=== PATIENT | female | born 1945 | race Caucasian/White ===

== ENCOUNTER 2020-03-01 06:31 | Day surgery (SDC) | payer MEDICARE, OTHER, SELFPAY ==
--- NOTE | 2020-02-29 11:56 | HO.ANESPROP2 ---
Documented by User: Sonam Sparks 02/29/20 11:59 HPI - Anesthesia Eval Consult details Narrative: 74yo F for EGD with balloon diliation PMFSH Past Medical History Medical History Depression with anxiety GERD (gastroesophageal reflux disease) Hiatal hernia Hypothyroidism Mild asthma Mild cognitive impairment GILDA (obstructive sleep apnea) Pure hypercholesterolemia Family History Family History Mother Diabetes Hypertension Stroke Father Lung cancer Surgical History Surgical History History of benign ovarian tumor Social History Social History Smoking Status: Never smoker Second Hand Smoke Exposure: No Use of substances other than those prescribed or required for medical reasons: No Advance Directives: Yes Advance Directives Information Provided: Yes Advance Directives on File: No Advance Directives Date on File: 03/01/20 Recently lost weight without trying: No Meds Allergies Allergy/AdvReac Type Severity Reaction Status Date / Time influenza virus vaccine, Allergy Severe SEVERE FLU Verified 02/23/20 10:19 specific SYMPTOMS [Influenza Virus Vacc,Specific] amoxicillin [Amoxicillin] Allergy Unknown UNKNOWN Verified 02/23/20 10:19 codeine [CODEINE] Allergy Unknown NAUSEA & Verified 02/23/20 10:19 VOMITING Penicillins Allergy Unknown UNKNOWN Verified 02/23/20 10:19 Home Medications Medication Instructions Recorded Confirmed Type albuterol sulfate 90 mcg/actuation 2 puff PO Q6H PRN 02/23/20 02/23/20 History aerosol inhaler fluticasone propionate 44 1 puff INHALATION BID 02/23/20 02/23/20 History mcg/actuation HFA aerosol inhaler levothyroxine 50 mcg tablet 50 mcg PO QAM 02/23/20 02/23/20 History sertraline 100 mg tablet 100 mg PO DAILY 02/23/20 02/23/20 History terbutaline 5 mg tablet 5 mg PO TID 02/23/20 02/23/20 History Exam Exam Date and Time: February 29, 2020 1156 Pertinent Lab Results Pertinent Lab Results: Laboratory Tests 01/20/20 01/20/20 13:43 14:15 WBC 10.6 Hgb 14.5 Hct 44.9 Plt Count 275 Sodium 137 Potassium 4.3 Chloride 102 BUN 27 H Creatinine 1.10 Assessment and Plan Assessment Anesthesia Assessment: Chart Reviewed Documented by User: Lui Mejia 03/01/20 07:24 PMFSH Past Medical History Medical History Depression with anxiety GERD (gastroesophageal reflux disease) Hiatal hernia Hypothyroidism Mild asthma Mild cognitive impairment GILDA (obstructive sleep apnea) Pure hypercholesterolemia Family History Family History Mother Diabetes Hypertension Stroke Father Lung cancer Surgical History Surgical History History of benign ovarian tumor Social History Social History Smoking Status: Never smoker Second Hand Smoke Exposure: No Use of substances other than those prescribed or required for medical reasons: No Advance Directives: Yes Advance Directives Information Provided: Yes Advance Directives on File: No Advance Directives Date on File: 03/01/20 Recently lost weight without trying: No Meds Allergies Allergy/AdvReac Type Severity Reaction Status Date / Time influenza virus vaccine, Allergy Severe SEVERE FLU Verified 02/23/20 10:19 specific SYMPTOMS [Influenza Virus Vacc,Specific] amoxicillin [Amoxicillin] Allergy Unknown UNKNOWN Verified 02/23/20 10:19 codeine [CODEINE] Allergy Unknown NAUSEA & Verified 02/23/20 10:19 VOMITING Penicillins Allergy Unknown UNKNOWN Verified 02/23/20 10:19 Home Medications Medication Instructions Recorded Confirmed Type albuterol sulfate 90 mcg/actuation 2 puff PO Q6H PRN 02/23/20 02/23/20 History aerosol inhaler fluticasone propionate 44 1 puff INHALATION BID 02/23/20 02/23/20 History mcg/actuation HFA aerosol inhaler levothyroxine 50 mcg tablet 50 mcg PO QAM 02/23/20 02/23/20 History sertraline 100 mg tablet 100 mg PO DAILY 02/23/20 02/23/20 History terbutaline 5 mg tablet 5 mg PO TID 02/23/20 02/23/20 History Exam Airway Mallampati Class: III TM Dist: >3cm Neck ROM: Full Loose/Missing/Broken Teeth: No Heart: [id number] Lungs: +b/s b/l Assessment and Plan Assessment Anesthesia Assessment: Anesthesia Plan Discussed, PAT Visit and Chart Reviewed Final Anesthetic Review NPO: Yes ASA Class: III Final Preanesthetic Review: No Changes in Pt Med Stat, Meds/Allgs Chart Reviewed, Consent Obtained/Reviewed and Anes Risks/Benef Reviewed Patient Risk: Intermediate Procedure Risk: Low Assessment/Block/Sedation in SS: Assess/Block/Sedation-SS Anesthetic Plan Anesthetic Plan: MAC: Disposition: Standard PACU
[2020-03-01 06:40] VITALS: BMI 41.1
[2020-03-01 06:52] VITALS: BP 139/70; PULSE 79; RESP 18; TEMP 36.8; O2SAT 96
[2020-03-01] MEDS: Lactated Ringers 1,000 ML 100 ML IVCONT (07:07)
--- NOTE | 2020-03-01 07:22 | MHC.SHP ---
Pre-Procedural Eval Section A The patient is an INPATIENT: No The History & Physical has been completed within 30 days and I have reviewed it.: No Section B Chief Complaint: Dysphagia Details of Present Illness: Pt was eating fried chicken and it got stuck a few weeks ago. Food passed down in 10 min, she was having pain in her back. Daughter made her lie down on her left side. Massive amounts of reflux issues and nausea Daughter has noted increased belching. Relevant Family History (Specify if Yes): No Relevant Social History: None Present Medications: see Short Stay Collaborative assessment Medical History: Significant History (Diverticulitis. Hypothyroidism. Intermittent asthma. Depression/anxiety. ) History of Previous Operations: No relevant previous surgery Allergies: Allergies Allergy/AdvReac Type Severity Reaction Status Date / Time influenza virus vaccine, Allergy Severe SEVERE FLU Verified 02/23/20 10:19 specific SYMPTOMS [Influenza Virus Vacc,Specific] amoxicillin [Amoxicillin] Allergy Unknown UNKNOWN Verified 02/23/20 10:19 codeine [CODEINE] Allergy Unknown NAUSEA & Verified 02/23/20 10:19 VOMITING Penicillins Allergy Unknown UNKNOWN Verified 02/23/20 10:19 Review of Systems Sugical H&P ROS: Negative: Constitution and Cardiovascular and Yes, Specify: Respiratory (asthma), Psychiatric (cognitive impairment) and Gastrointestinal (Dysphagia) Exam Surgical H&P Exam: Normal: Heart, Normal: Lungs, Normal: Extremities and Normal: Abdomen Plan Diagnosis/Plan: Unchanged Patient has been examined and remains a candidate for the planned procedure
--- NOTE | 2020-03-01 07:24 | P.BOP_ITS ---
Brief Operative Note Date of procedure: 03/01/20 Pre-op diagnosis: Dysphagia, abnormal barium swallow Post-op diagnosis: other (Dysphagia, hiatal hernia, ersoive esophagitis) Procedure: FLEXIBLE TRANSORAL UPPER GASTROINTESTINAL ENDOSCOPY WITH BIOPSIES AND ESOPHAGEAL BALLOON DILATION Consent: Indications for the procedure and potential complications of bleeding, perforation, reaction to medications and missed diagnosis were discussed with the patient and informed consent was obtained. Instrument: Olympus GIF H 190 mid size upper endoscope Monitoring: Vital signs and clinical assessment, continuous EKG monitoring, Pulse oximetry, Carbon Dioxide monitoring and blood pressure monitoring were done throughout the procedure. Procedure: The patient was placed in the left lateral decubitis position and pre-procedure medications were administered and a bite block was placed. The endoscope was inserted into the mouth and advanced under direct vision to the third part of duodenum. A careful inspection was made as the upper endoscope was withdrawn including a retroflexed examination of the proximal stomach; Findings and interventions are described below. Findings: Larynx: Normal Esophagus: Tortuous esophagus with increased tertiary contractions - biopsies were obtained from proximal esophagus to check for EOE. GE junction at 35 cms, hiatal hernia 35 to 38 cms. Focal esophagitis with erosions at GE junction - biopsies were obtained. Balloon dilation was performed with an 18 and 19 mm CRE balloon x 60 seconds at each level. Stomach: Mild gastric erythema. Biopsies were obtained. Grade 2 flap valve on retroflexed examination of the cardia. Duodenum: Normal bulb and descending duodenum Intervention: Biopsies and esophageal balloon dilation as noted above Impression and Post Procedure Diagnosis: Endoscopy Findings: ESOPHAGUS: Tortuous esophagus with increased tertiary contractions - biopsies were obtained from proximal esophagus to check for EOE. GE junction at 35 cms, hiatal hernia 35 to 38 cms. Focal esophagitis with erosions at GE junction - biopsies were obtained. Balloon dilation was performed with an 18 and 19 mm CRE balloon x 60 seconds at each level. Plan: Await pathology results Patient has an appointment on 04/26/20 in the [facility] with Dipak Tracey M.D. Above findings were reviewed with the patient and handouts on GERD and dysphagia were given in the discharge area Surgeon: Dipak Tracey MD Anesthesia: MAC (Dr Buchanan) Engineering Department Chair: Edilberto Major Estimated blood loss (mL): 0 Pathology: other (A. proximal esophagus, B. Distal esophagus) Condition: stable Disposition: PACU
[2020-03-01] MEDS: Albuterol Sulfate (0.083%) 2.5 MG/3 ML VIAL.NEB INHALE (07:26)
[2020-03-01 08:18] VITALS: BP 113/62; PULSE 84; RESP 16; TEMP 37.4; O2SAT 95
[2020-03-01 08:37] VITALS: BP 126/66; PULSE 72; RESP 15; TEMP 37.6; O2SAT 94
--- NOTE | 2020-03-01 09:19 | HO.POSTANES ---
Post Anesthesia Evaluation Post Anesthesia Evaluation Vital Signs: Vital Signs Temp Pulse Resp BP Pulse Ox 03/01/20 08:37 99.7 F 72 15 126/66 94 03/01/20 08:18 99.3 F 84 16 113/62 95 03/01/20 06:52 98.2 F 79 18 139/70 96 Anesthesia: Monitored Mental Status: Awake Pain Control: Satisfactory Nausea/Vomiting: None Hydration: Adequate Anesthesia-Related Issues: No Anes. Related Issues
== END 2020-03-01 09:23 | disposition home or self-care (01) ==
PROVIDERS: PCP Internal Medicine; Visit Provider Internal Medicine Gastroenterology
PROC: (CPT 43249; principal; 2020-03-01 07:30)
DX: K22.8 Other specified diseases of esophagus (principal); K21.00 Gastro-esophageal reflux disease with esophagitis, without bleeding; K44.9 Diaphragmatic hernia without obstruction or gangrene; K22.10 Ulcer of esophagus without bleeding; F32.9 Major depressive disorder, single episode, unspecified; J45.909 Unspecified asthma, uncomplicated; G47.33 Obstructive sleep apnea (adult) (pediatric); G31.84 Mild cognitive impairment of uncertain or unknown etiology; E78.00 Pure hypercholesterolemia, unspecified; E03.9 Hypothyroidism, unspecified; Z79.51 Long term (current) use of inhaled steroids; Z79.899 Other long term (current) drug therapy; Z88.0 Allergy status to penicillin; Z88.1 Allergy status to other antibiotic agents; Z88.8 Allergy status to other drugs, medicaments and biological substances
CPT/HCPCS: 43249; 43239; 88305; 94640; C1726; J2405

== ENCOUNTER → 2020-03-08 13:33 | Outpatient (BNVA) | payer MEDICARE, OTHER, SELFPAY | PROVIDERS: PCP Internal Medicine; Visit Provider Urology | DX: N32.81 Overactive bladder (principal) | CPT/HCPCS: 99212 ==

== ENCOUNTER 2020-04-02 14:04 | Emergency (ER) | payer MEDICARE, OTHER, SELFPAY ==
[2020-04-02 14:11] VITALS: BP 126/80; BP 174/80; PULSE 74; PULSE 82; RESP 16; O2SAT 97; BMI 39.6
--- NOTE | 2020-04-02 14:13 | CT_ITS ---
EXAMINATION: CT HEAD, CT CERVICAL SPINE AND CT FACIAL BONES WITHOUT CONTRAST. CLINICAL INFORMATION: Fall, jaw pain. COMPARISON: None TECHNIQUE: 5 mm thin axial and reformatted 2 mm thin and coronal and sagittal images of brain were obtained. 3 minutes and axial and reformatted 1.5 mm thin sagittal and coronal images of facial bones were obtained. Subsequently 3 mm thin axial and reformatted 2 mm thin sagittal coronal images of cervical spine were obtained. DLP 1864. FINDINGS: Brain: There is no acute intra-axial, extra-axial bleed, masses, collection or midline shift. There is no acute infarction in evolution. The seymour to white matter differentiation is maintained. The lateral ventricles are symmetrical but enlarged. There is mild prominence of cortical sulci. Bone windows reveal no calvarial abnormality. There is normal aeration of bilateral paranasal sinuses and mastoid air cells. The scalp soft tissues are unremarkable. Facial bones: There is normal aeration of bilateral paranasal sinuses with mucoperiosteal thickening bilateral maxillary and ethmoid sinuses. There are bilateral retention cysts or polyps in bilateral maxillary sinuses. The lamina papyracea, cribriform plate and bony sinus protcor are intact. No acute fracture seen. Bilateral ostiomeatal complex and frontoethmoidal recesses are widely patent. Cervical spine: There is mild straightening of cervical lordosis. The vertebral heights are normal. There is grade 1 anterolisthesis C4 over C5. Rest of the vertebral alignment is normal. There is loss of C4-C5, C5-C6, C6-C7 and C7-T1 disc heights with mild ventral and posterior spondylosis. No lytic or sclerotic process seen. There is no visible acute fracture, dislocation or subluxation. The craniovertebral junction and the C1-C2 alignment is normal. There is moderate C4-C5 facet joint arthropathy. There is bilateral apical pleural thickening. CT/CT facial bones wo con IMPRESSION: No acute intracranial process seen. No maxillofacial, mandibular or nasal bone fractures seen. Mild mucoperiosteal thickening and retention cysts or polyps in bilateral maxillary sinuses and mucosal thickening bilateral ethmoid sinuses. No visible fracture or dislocation cervical spine. Grade 1 degenerative anterolisthesis C4 over C5. There are degenerative disc changes from C4-C5 through C7-T1 disc levels with mild ventral spondylosis.
--- NOTE | 2020-04-02 14:14 | CT_ITS ---
EXAMINATION: CT HEAD, CT CERVICAL SPINE AND CT FACIAL BONES WITHOUT CONTRAST. CLINICAL INFORMATION: Fall, jaw pain. COMPARISON: None TECHNIQUE: 5 mm thin axial and reformatted 2 mm thin and coronal and sagittal images of brain were obtained. 3 minutes and axial and reformatted 1.5 mm thin sagittal and coronal images of facial bones were obtained. Subsequently 3 mm thin axial and reformatted 2 mm thin sagittal coronal images of cervical spine were obtained. DLP 1864. FINDINGS: Brain: There is no acute intra-axial, extra-axial bleed, masses, collection or midline shift. There is no acute infarction in evolution. The seymour to white matter differentiation is maintained. The lateral ventricles are symmetrical but enlarged. There is mild prominence of cortical sulci. Bone windows reveal no calvarial abnormality. There is normal aeration of bilateral paranasal sinuses and mastoid air cells. The scalp soft tissues are unremarkable. Facial bones: There is normal aeration of bilateral paranasal sinuses with mucoperiosteal thickening bilateral maxillary and ethmoid sinuses. There are bilateral retention cysts or polyps in bilateral maxillary sinuses. The lamina papyracea, cribriform plate and bony sinus proctor are intact. No acute fracture seen. Bilateral ostiomeatal complex and frontoethmoidal recesses are widely patent. Cervical spine: There is mild straightening of cervical lordosis. The vertebral heights are normal. There is grade 1 anterolisthesis C4 over C5. Rest of the vertebral alignment is normal. There is loss of C4-C5, C5-C6, C6-C7 and C7-T1 disc heights with mild ventral and posterior spondylosis. No lytic or sclerotic process seen. There is no visible acute fracture, dislocation or subluxation. The craniovertebral junction and the C1-C2 alignment is normal. There is moderate C4-C5 facet joint arthropathy. There is bilateral apical pleural thickening. CT/CT cervical spine wo con IMPRESSION: No acute intracranial process seen. No maxillofacial, mandibular or nasal bone fractures seen. Mild mucoperiosteal thickening and retention cysts or polyps in bilateral maxillary sinuses and mucosal thickening bilateral ethmoid sinuses. No visible fracture or dislocation cervical spine. Grade 1 degenerative anterolisthesis C4 over C5. There are degenerative disc changes from C4-C5 through C7-T1 disc levels with mild ventral spondylosis.
[2020-04-02] MEDS: Lidocaine HCl 1 % MPF 5 ML VIAL SUBCUT ×2 (14:30)
--- NOTE | 2020-04-02 14:38 | PC.NURSE ---
pt daughter updated per pt request. pt daughter expressing that this is more than once pt has come to the er for falls at home. per pt daughter, pt is resistant to rehabilitation and pt daughter feels pt is heading towards needing assisted living with the way shes going with falls . provider aware.
--- NOTE | 2020-04-02 17:08 | XR_ITS ---
EXAMINATION: XR KNEE, RIGHT CLINICAL INFORMATION: Knee injury COMPARISON: None TECHNIQUE: Four views of the right knee. FINDINGS: There is a horizontal nondisplaced fracture through the upper one third of the patella. No joint effusion is seen. No other fractures are detected. Mild degenerative changes are present with narrowing of the medial compartment and some lateral tibial plateau osteophytes. XR/XR knee RT 4V IMPRESSION: 1. Nondisplaced patellar fracture. 2. Mild degenerative changes involving the medial compartment
--- NOTE | 2020-04-02 17:12 | PC.NURSE ---
xray at bedside for knee, lac closed by kenneth krueger
--- NOTE | 2020-04-02 17:50 | ED_ITS ---
HPI - Fall General Chief Complaint: Fall Stated Complaint: TRIP AND FALL Time Seen by Provider: 04/02/20 14:13 History of Present Illness HPI Narrative: Patient tripped and fell in her yd injuring her chin with a laceration, and she does complain of a mild headache and her right knee, she cannot bear weight now, she denies any other injury she denies any preceding symptoms no dizziness no fainting no feeling faint no chest pain no palpitations no nausea no vomiting no fever no chills, denies other injury Related Data Home Medications Medication Instructions Recorded Confirmed albuterol sulfate 90 mcg/actuation 2 puff PO Q6H PRN 02/23/20 03/08/20 aerosol inhaler levothyroxine 50 mcg tablet 50 mcg PO QAM 02/23/20 03/08/20 sertraline 100 mg tablet 100 mg PO DAILY 02/23/20 03/08/20 terbutaline 5 mg tablet 5 mg PO TID 02/23/20 03/08/20 Previous Rx's Medication Instructions Recorded sertraline 25 mg tablet 25 mg PO DAILY #30 tab 02/20/20 mirabegron 25 mg tablet,extended 25 mg PO DAILY 30 Days #30 tab 02/22/20 release 24 hr omeprazole 20 mg capsule,delayed 20 mg PO DAILY 30 Days #30 cap 03/01/20 release fluticasone propionate 44 1 puff INHALATION BID #31.8 cap 03/20/20 mcg/actuation HFA aerosol inhaler Allergies Allergy/AdvReac Type Severity Reaction Status Date / Time influenza virus vaccine, Allergy Severe SEVERE FLU Verified 02/23/20 10:19 specific SYMPTOMS [Influenza Virus Vacc,Specific] amoxicillin [Amoxicillin] Allergy Unknown UNKNOWN Verified 03/08/20 13:41 codeine [CODEINE] Allergy Unknown NAUSEA & Verified 03/08/20 13:41 VOMITING Penicillins Allergy Unknown UNKNOWN Verified 03/08/20 13:41 Review of Systems Review of Systems: Positive positive for headache, chin laceration, right knee pain Negative for fever chills dizziness weakness no preceding symptoms no feeling faint no fainting no passing-out no loss of consciousness no vision changes no numbness or weakness no chest pain no shortness of breath no palpitations, no abdominal pain no nausea no vomiting, no numbness no weakness [facility] Past Medical History Attestation statement: The following information was validated with the patient. [facility] Narrative: Patient has had many months of pain in her legs which makes ambulation difficult and has had several falls Source: nursing notes reviewed Medical History Depression with anxiety Dysphagia GERD (gastroesophageal reflux disease) Hiatal hernia Hypothyroidism Mild asthma Mild cognitive impairment GILDA (obstructive sleep apnea) Pure hypercholesterolemia Surgical History History of benign ovarian tumor Family History Family History Mother Diabetes Hypertension Stroke Father Lung cancer Social History Social History Alcohol intake: never Smoking Status: Never smoker Second Hand Smoke Exposure: No Use of substances other than those prescribed or required for medical reasons: No Advance Directives: Yes Advance Directives on File: Yes Advance Directives Date on File: 03/01/20 Physical Exam Vital Signs: Vital Signs: Last Vital Signs Temp 97.9 F 04/02/20 19:05 Pulse 90 04/02/20 19:05 Resp 18 04/02/20 19:05 BP 150/77 H 04/02/20 19:05 Pulse Ox 97 04/02/20 19:05 Body Mass Index 39.6 Patient is comfortable of hearing, relaxed and cooperative, a and O x3, no acute distress There is a 2.5 cm laceration subcutaneous in the chin, there is some tenderness around the area but the mandible has full range of motion, there is no wound or hematoma or defect on the scalp, there is no hemotympanum, no raccoon eyes, no Vincent sign The neck had mild tenderness, no bony tenderness The chest is clear to auscultation bilaterally with no chest wall tenderness The abdomen is soft nontender The extremities the right knee is scraped with superficial abrasions there is tenderness over the patella the patient cannot straight leg raise and cannot bend the knee without lots of discomfort, there was no significant swelling or effusion The hip was non tender, and the ankle had full range of motion without swelling or deformity Upper extremities had full range of motion with no swelling or deformity as did the left leg Neuro no focal deficit Course Course Course Narrative: Patient remains comfortable throughout ER visit but is unable to lift right leg or ambulate normally Procedure note the 2.5 cm chin laceration is cleansed with normal saline Anesthesia was 8 cc of 1% lidocaine No foreign body was seen 250 Vicryl sutures were used internally 850 nylon sutures were used to complete the closure Bleeding was controlled and patient tolerated procedure well Discussion with Dr. Newell about the x-ray finding which revealed a broken patella with horizontal fracture of upper 3rd, he advised no need for urgent surgery and patient can follow in the office to determine best treatment in 1 week As patient was not ambulatory she was to be held overnight in the ER pending placement in a rehab facility tomorrow 21:00 case signed out to physician assistant petit MDM - Fall Imaging Data CT scan - head: Radiologist's impression: (s): CT head/brain wo con Accession Number(s): [id number] cc: KWADWO VOGEL~ EXAMINATION: CT HEAD, CT CERVICAL SPINE AND CT FACIAL BONES WITHOUT CONTRAST. CLINICAL INFORMATION: Fall, jaw pain. COMPARISON: None TECHNIQUE: 5 mm thin axial and reformatted 2 mm thin and coronal and sagittal images of brain were obtained. 3 minutes and axial and reformatted 1.5 mm thin sagittal and coronal images of facial bones were obtained. Subsequently 3 mm thin axial and reformatted 2 mm thin sagittal coronal images of cervical spine were obtained. DLP 1864. FINDINGS: Brain: There is no acute intra-axial, extra-axial bleed, masses, collection or midline shift. There is no acute infarction in evolution. The seymour to white matter differentiation is maintained. The lateral ventricles are symmetrical but enlarged. There is mild prominence of cortical sulci. Bone windows reveal no calvarial abnormality. There is normal aeration of bilateral paranasal sinuses and mastoid air cells. The scalp soft tissues are unremarkable. Facial bones: There is normal aeration of bilateral paranasal sinuses with mucoperiosteal thickening bilateral maxillary and ethmoid sinuses. There are bilateral retention cysts or polyps in bilateral maxillary sinuses. The lamina papyracea, cribriform plate and bony sinus proctor are intact. No acute fracture seen. Bilateral ostiomeatal complex and frontoethmoidal recesses are widely patent. Cervical spine: There is mild straightening of cervical lordosis. The vertebral heights are normal. There is grade 1 anterolisthesis C4 over C5. Rest of the vertebral alignment is normal. There is loss of C4-C5, C5-C6, C6-C7 and C7-T1 disc heights with mild ventral and posterior spondylosis. No lytic or sclerotic process seen. There is no visible acute fracture, dislocation or subluxation. The craniovertebral junction and the C1-C2 alignment is normal. There is moderate C4-C5 facet joint arthropathy. There is bilateral apical pleural thickening. CT/CT head/brain wo con IMPRESSION: No acute intracranial process seen. No maxillofacial, mandibular or nasal bone fractures seen. Mild mucoperiosteal thickening and retention cysts or polyps in bilateral maxillary sinuses and mucosal thickening bilateral ethmoid sinuses. No visible fracture or dislocation cervical spine. Grade 1 degenerative anterolisthesis C4 over C5. There are degenerative disc changes from C4-C5 through C7-T1 disc levels with mild ventral spondylosis. Discharge Plan Discharge Prescriptions: No Action sertraline 25 mg tablet 25 mg PO DAILY Qty: 30 RF: 6 Myrbetriq 25 mg tablet extended release 24 hr 25 mg PO DAILY 30 Days Qty: 30 RF: 6 omeprazole 20 mg capsule,delayed release(DR/EC) 20 mg PO DAILY 30 Days Qty: 30 RF: 3 fluticasone propionate [Flovent HFA] 44 mcg/actuation HFA aerosol inhaler 1 puff inhalation BID Qty: 31.8 RF: 1 sertraline 100 mg tablet 100 mg PO DAILY RF: 0 levothyroxine 50 mcg tablet 50 mcg PO QAM RF: 0 albuterol sulfate 90 mcg/actuation HFA aerosol inhaler 2 puff PO Q6H PRNRF: 0 terbutaline 5 mg tablet 5 mg PO TID RF: 0
[2020-04-02 17:58] VITALS: BP 145/78; PULSE 87; RESP 22; TEMP 36.8; O2SAT 95
[2020-04-02 19:05] VITALS: BP 150/77; PULSE 90; RESP 18; TEMP 36.6; O2SAT 97
--- NOTE | 2020-04-02 19:15 | PC.NURSE ---
pt denies pain yet has a headache when she extends her head back into the pillow. pt is now eating a sandwhich, head ct and c spine completed. pt denies pain to knee or chin at this time. pt is aox3 with no distress noted.
[2020-04-02] MEDS: Ibuprofen 400 MG TABLET PO (21:37)
[2020-04-02 22:00] VITALS: BP 133/79; PULSE 91; RESP 16
[2020-04-02 22:31] VITALS: BP 136/77; PULSE 88; RESP 18; TEMP 37.3; O2SAT 94
[2020-04-03] VITALS (8 sets, daily range): BP systolic 110–153; BP diastolic 57–72; PULSE 79–88; RESP 16–20; TEMP 36.6–36.8; O2SAT 92–98
--- NOTE | 2020-04-03 02:18 | PC.NURSE ---
pt voided urine in bedpan, pt repositioned call ruiz at bedside. no s/s of resp distress. palp pulses to extremities.
--- NOTE | 2020-04-03 07:10 | PC.NURSE ---
pt is a/o x 3 no sob/yamilex noted skin pink warm dry, r knee brace in place. +cms to r leg.
--- NOTE | 2020-04-03 08:05 | PC.NURSE ---
pt ate 50% of breakfast.
--- NOTE | 2020-04-03 08:41 | MHC.CM.ED ---
Received case management consult from Praneeth VERMA. Patient came to ER after a fall. Physical therapy eval. Short term rehab is recommended but patient is refusing. Attempted to reach out to daughterJessy via telephone at [phone]. Left voicemail requesting return telephone call. Continue to monitor for d/c needs.
[2020-04-03 09:59] LABS: Glucose Urine UA NEG (NEG); Leukocyte Esterase Urine NEG (NEG); Nitrite Urine NEG (NEG); PH 5.5 (5.0-8.0); Specific Gravity - Urine >= 1.030 (1.005-1.025); Urine Blood 2+ (NEG); Urine Ketones NEG (NEG); Urine Protein NEG (NEG-TRACE)
[2020-04-03 10:00] LABS: Appearance Urine CLOUDY; Color Urine YELLOW
[2020-04-03 10:07] LABS: Bacteria Urine 2+ /LPF; Squamous Epithelial Cell Urine 2+ /LPF; WBC Urine 0-2 /HPF (0-4)
[2020-04-03 10:08] LABS: Urine Talc Crystals 3+ /LPF
[2020-04-03 10:12] LABS: COVID-19 Test Negative (Negative)
[2020-04-03] MEDS: HYDROcodone Bit/Acetam 5/325 TABLET 1 TAB PO (11:18)
[2020-04-03] MEDS: Levothyroxine Sodium 50 MCG TABLET PO (11:18)
[2020-04-03] MEDS: Sertraline HCL 25 MG TABLET 75 MG PO (11:18)
[2020-04-03] MEDS: Albuterol Sulfate 90 MCG 8 GM INHALER 2 PUFF INHALE (11:19)
[2020-04-03] MEDS: Mirabegron 25 MG TAB.ER.24H PO (12:46)
--- NOTE | 2020-04-03 12:54 | MHC.CM.ED ---
Received return telephone call from daughter, Jessy. Patient lives on the 2nd floor. Jessy lives on the first. 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 She is unable to assist patient 24 hours a day especially if she is unable to bear wait. Met with patient. Explained about information. Patient is agreeable to short term rehab at [facility]. Per Ariane at [facility], patient can leave at 2pm. [facility] booked. Med nec with chart. Patient, Jessy, Di VERMA and Shauna GONZALEZ aware. Continue to monitor for d/c needs.
--- NOTE | 2020-04-03 13:55 | PC.NURSE ---
Pt vomited, unwitnessed by this rn. stomach contents. states she didn't aspirate, was sitting upright. cleansed and given sips of water. provider aware.
--- NOTE | 2020-04-03 14:31 | PC.NURSE ---
nurse to nurse given to evan (rn) at [facility]. pt aware of plano f care for d/c to rehab via stretcher.
== END 2020-04-03 14:33 | disposition skilled nursing facility (03) ==
PROVIDERS: Physician Assistant; Emergency Provider Emergency Medicine; PCP Internal Medicine
DX: S01.81XA Laceration without foreign body of other part of head, initial encounter (principal); S80.211A Abrasion, right knee, initial encounter; W01.0XXA Fall on same level from slipping, tripping and stumbling without subsequent striking against object, initial encounter; R68.84 Jaw pain; G44.309 Post-traumatic headache, unspecified, not intractable; M54.2 Cervicalgia; Y93.01 Activity, walking, marching and hiking; Y92.9 Unspecified place or not applicable; Y99.9 Unspecified external cause status; M25.561 Pain in right knee; Z79.899 Other long term (current) drug therapy; Z23 Encounter for immunization
CPT/HCPCS: 12011; 70450; 70486; 72125; 73564; 81001; 87635; 90471; 90715; 97162; 99284; 99285

== ENCOUNTER 2020-04-13 12:23 | Outpatient (REF) | payer MEDICARE, OTHER, SELFPAY ==
--- NOTE | 2020-04-13 12:24 | XR_ITS ---
EXAMINATION: XR KNEE, RIGHT CLINICAL INFORMATION: Patellar fracture. Follow-up. COMPARISON: Radiographs right knee 04/02/2020 TECHNIQUE: AP and lateral views of the right knee. FINDINGS: There is a nondisplaced transverse patellar fracture again seen. No interval displacement. No interval acute fracture or dislocation. Again, there are degenerative changes medial knee joint compartment with joint narrowing. No erosive change. XR/XR knee RT 2V IMPRESSION: Nondisplaced transverse fracture right patella unchanged in alignment. Fracture line still visible.
== END 2020-04-13 12:24 | disposition home or self-care (01) ==
LOC: HO.HOSX 12:23
PROVIDERS: Visit Provider Orthopaedic Surgery
DX: S82.009A Unspecified fracture of unspecified patella, initial encounter for closed fracture (principal); Z79.899 Other long term (current) drug therapy; Z79.891 Long term (current) use of opiate analgesic
CPT/HCPCS: 73560; 99202

== ENCOUNTER 2020-05-14 11:45 | Outpatient (REF) | payer MEDICARE, OTHER, SELFPAY ==
--- NOTE | 2020-05-14 12:39 | XR_ITS ---
EXAMINATION: XR KNEE, RIGHT CLINICAL INFORMATION: Fracture COMPARISON: Previous left knee x-rays most recent 04/13/2020 TECHNIQUE: 2 views of the right knee. FINDINGS: There is a transverse fracture of the patella. This appears unchanged from previous exams. No other fracture is seen. There is mild medial femoral tibial joint space narrowing. There is a small joint effusion. XR/XR knee RT 2V IMPRESSION: No change in the transverse fracture of the patella from previous exam.
== END 2020-05-14 11:46 | disposition home or self-care (01) ==
LOC: HO.HOSX 11:45
PROVIDERS: Visit Provider Orthopaedic Surgery
DX: S82.035D Nondisplaced transverse fracture of left patella, subsequent encounter for closed fracture with routine healing (principal)
CPT/HCPCS: 73560; 99212

== ENCOUNTER → 2020-07-02 12:47 | Outpatient (BNVA) | payer MEDICARE, OTHER, SELFPAY | PROVIDERS: PCP Internal Medicine; Visit Provider Internal Medicine Gastroenterology | CPT/HCPCS: Q3014 ==

== ENCOUNTER 2020-08-07 06:30 | Inpatient (IN) | payer MEDICARE, OTHER, SELFPAY ==
--- NOTE | ~2020-08-07 | CT_ITS ---
EXAMINATION: CT GI BLEED, ABDOMEN AND PELVIS WITH IV CONTRAST. CLINICAL INFORMATION: GI bleed, dizziness, abdominal pain and history of diverticulitis. COMPARISON: CT abdomen and pelvis 05/18/2016 TECHNIQUE: 5 mm thin axial and reformatted 2 mm thin sagittal and coronal images of abdomen and pelvis were obtained without contrast. Subsequently 2 mm thin axial postcontrast and delayed images 20 minutes later were obtained through the abdomen and pelvis. DLP [id number]. FINDINGS: The lung bases are clear. The heart size is normal. There is a small hiatal hernia. There are no radiopaque renal, ureteral or urinary bladder calculi. There is no gallbladder calculi either. Postcontrast the liver is homogeneous in density, normal size, shape and position. No focal lesion or intrahepatic ductal dilatation seen. The gallbladder wall is normal. Visualized spleen, bilateral adrenal glands and the kidneys are unremarkable. There is diffuse mural thickening of left transverse and diffuse descending colon with minimal pericolic fat stranding suggestive of colitis the distal descending colon and the rest of the transverse and ascending colon is normal caliber. Underlying long segment neoplasm is hard to exclude. There are a few scattered diverticuli seen in the sigmoid colon. The small bowel loops are normal caliber. The appendix is not visualized. There is no extravasation or pooling of contrast seen in the GI tract, especially within the colon. The abdominal wall appears unremarkable. Visualized abdominal aorta is normal caliber. No abnormal size retroperitoneal or peritoneal lymph nodes seen. There is a small umbilical hernia containing fat. Imaging through the pelvis reveals anteverted uterus. Bone windows reveal vacuum disc phenomenon and loss of disc height at L2-L3, L3-L4, L4-L5 and L5-S1 disc levels. There is mild ventral spondylosis. No lytic process seen. CT/CT gi bleed abd pel wo/w con IMPRESSION: Views left transverse, splenic flexure and proximal descending colon mural thickening and pericolic fat stranding suggestive of colitis. There is no contrast extravasation seen to suspect the site of GI bleed however one is suspected in this region. No proximal bowel obstruction. No free air or abscess seen. Differential diagnosis includes underlying neoplasm, less likely diverticulitis. Diffuse colonic diverticulosis.
[2020-08-07 06:37] VITALS: BP 142/85; PULSE 79; RESP 16; TEMP 36.6; O2SAT 94; BMI 41.5
--- NOTE | 2020-08-07 08:20 | ED.ABDPAIN ---
HPI - Abdominal Pain General Chief Complaint: Abdominal Pain Stated Complaint: BLEEDING FROM RECTUM/ABD PAIN Time Seen by Provider: 08/07/20 08:07 Source: patient and EMS Mode of arrival: EMS Limitations: no limitations History of Present Illness HPI narrative: 74 y/o female with history of asthma, hypothyroidism, hiatial hernia, dysphagia, esophagitis, diverticulitis GERD, GILDA, depression who presents to the ED from home via EMS with lower abdominal pain that started yesterday and acute onset of bloody bowel movements last night. She had 2 pure bloody bowel movements at home along with dizziness last night and this morning. She had 2 more on arrival to the ER. She reports the pain is improved and now gone since getting to the ER. The pain felt like her prior episodes of diverticulitis. She is not on anticoagulation. Last colonoscopy 10 years ago and was unremarkable. Last EGD in February. She denies fever, chills, vomiting, constipation, SOB, chest pain. She admits to nausea but has not vomited. MD elicited complaint: abdominal pain Pertinent past history: diverticulitis Onset (ago): day(s) (1) Pain Consistency: intermittent and now resolved Location: RLQ and LLQ Severity: moderate Quality: cramping and aching Radiation: none Migration to: no migration Exacerbating factors: nothing Relieving factors: nothing Context: history of similar episodes Associated symptoms: nausea Related Data Home Medications Medication Instructions Recorded Confirmed albuterol sulfate 90 mcg/actuation 2 puff PO Q6H PRN 02/23/20 07/02/20 aerosol inhaler terbutaline 5 mg tablet 5 mg PO TID PRN 02/23/20 07/02/20 sertraline 75 mg PO DAILY 04/03/20 07/02/20 Previous Rx's Medication Instructions Recorded mirabegron 25 mg tablet,extended 25 mg PO DAILY 30 Days #30 tab 02/22/20 release 24 hr ibuprofen 600 mg PO Q8H PRN #30 tab 04/03/20 fluticasone propionate 44 1 puff INHALATION BID #31.8 cap 05/14/20 mcg/actuation HFA aerosol inhaler CPAP #1 ea 06/26/20 levothyroxine 50 mcg tablet 50 mcg PO DAILY 90 Days #90 tab 06/26/20 omeprazole 20 mg capsule,delayed 20 mg PO DAILY 90 Days #90 cap 07/02/20 release Allergies Allergy/AdvReac Type Severity Reaction Status Date / Time influenza virus vaccine, Allergy Severe SEVERE FLU Verified 07/02/20 12:47 specific SYMPTOMS [Influenza Virus Vacc,Specific] amoxicillin [Amoxicillin] Allergy Unknown UNKNOWN Verified 07/02/20 12:47 codeine [CODEINE] Allergy Unknown NAUSEA & Verified 07/02/20 12:47 VOMITING Penicillins Allergy Unknown UNKNOWN Verified 07/02/20 12:47 Sulfa (Sulfonamide Allergy Unknown Hives Verified 07/02/20 12:47 Antibiotics) Review of Systems Review of Systems Constitutional: No Fever, No Chills ENT/Mouth: No sore throat, No Rhinorrhea, No Swallowing Difficulty Cardiovascular: No Chest Pain, No SOB, No Orthopnea, No Edema Respiratory: No Cough, No Sputum, No Wheezing, No dyspnea Gastrointestinal: + Nausea, No Vomiting, No Diarrhea, + abdominal Pain, + Hematochezia, No Melena Genitourinary: No Dysuria, No Urinary Frequency, No Hematuria Musculoskeletal: No joint pain, No Myalgias Skin: No Skin Lesions, No rash Neuro: No Weakness, No Numbness, + Dizziness, No Headache Psych: + Anxiety/Panic, No Depression Heme/Lymph: No Bruising, No Lymphadenopathy Endocrine: No Polyuria, No Polydipsia Physical Exam Vital Signs: Vital Signs: Last Vital Signs Temp 97.9 F 08/07/20 06:37 Pulse 75 08/07/20 11:33 Resp 18 08/07/20 11:33 BP 132/55 L 08/07/20 11:33 Pulse Ox 97 08/07/20 11:33 Body Mass Index 41.5 Appearance: Alert. Oriented X3. No acute distress. Eyes: Pupils equal, round and reactive to light. ENT: Pharynx normal. Neck: Normal inspection. Neck supple. CVS: Normal heart rate and rhythm. Pulses normal. Respiratory: No respiratory distress. Breath sounds normal. Abdomen: Obese, Soft and nontender. +BS hyperactive x4. longitudinal well healed abdominal scar consistent with prior surgery Skin: Skin warm and dry. Normal skin color. Normal skin turgor. No rashes. Extremities: No lower extremity edema. Neuro: Oriented X 3. No motor deficit. No sensory deficit. Course Course Course Narrative: 74 y/o female presenting with lower abdominal pain and BRBPR x4, associated with dizziness. Concern for acute diverticulitis with possible acute symptomatic blood loss anemia. Will get blood workup and CT scan w/ GI bleed protocol given she is actively bleeding here, may be able to see an active site. She is hemodynamically stable without tachycardia or hypotension at this time. Will monitor closely. Reevaluation(s) Reevaluation #1: WBC 16K with elevation in LFTs. CT scan showing colitis, no active GI bleed although suspected cause is in the area of colitis. Her H/H is stable. She is symptomatic when she has a bloody BM. She is diffusely weak and c/o SOB with exertion to the commode. Will start IV antibiotics and plan to admit patient for further management. Reevaluation #2: Dr. Ortiz accepted patient for admission. MDM - Abdominal Pain Differential Diagnosis Differential diagnosis: Likely abdominal pain, acute appendicitis, bowel perforation, calculus of kidney, constipation, diverticulitis, gastroenteritis, gastritis, mesenteric ischemia, pancreatitis, peptic ulcer disease and small bowel obstruction Medical Records Attestation: I reviewed the patient's medical records. Lab Data Attestation: I reviewed the patient's lab results. Result diagrams: 08/07/20 08:42 08/07/20 08:43 Labs: Lab Results 08/07/20 08/07/20 08/07/20 Range/Units 08:42 08:43 08:43 WBC 16.6 H (4.8-10.8) X10*3/uL RBC 5.46 (4.20-5.50) X10*6/uL Hgb 14.7 (12.0-16.0) g/dl Hct 46.5 (37-47) % MCV 85.2 (80-98) fL MCH 26.9 L (27.0-33.0) pg MCHC 31.6 (31.0-35.0) g/dl RDW 13.8 (11.0-16.0) % Plt Count 264 (160-400) X10*3/uL MPV 10.7 (9.4-12.3) fL Immature Gran % (Auto) 0.4 (0.0-0.4) % Neut % (Auto) 90.4 H (45-73) % Lymph % (Auto) 4.4 L (20-40) % [place] % (Auto) 4.0 (2-11) % Eos % (Auto) 0.5 (0-4) % Baso % (Auto) 0.3 (0-2) % Lymph # (Auto) 0.7 L (1.2-4.9) X10*3/uL [place] # (Auto) 0.7 (0.1-1.2) X10*3/uL Eos # (Auto) 0.1 (0.0-0.4) X10*3/uL Baso # (Auto) 0.1 (0.0-0.2) X10*3/uL Abs Immat Gran (auto) 0.06 H (0.00-0.03) X10*3/uL Absolute Neuts (auto) 15.0 H (2.0-8.3) X10*3/uL Absolute Nucleated RBC 0.000 (0.0-0.012) X10*3/uL Nucleated RBC % (auto) 0.0 (0.0-0.2) /100WBC Smear Tech's Comments VERIFIED PT 11.6 (10.8-13.0) SEC INR 1.0 (0.9-1.1) APTT 32.9 (24.1-38.0) SEC Sodium 137 (135-145) mmol/L Potassium 4.7 (3.3-5.1) mmol/L Chloride 100 (96-108) mmol/L Carbon Dioxide 23 (22-29) mmol/L Anion Gap 19 (12-20) BUN 19 H (9-16) mg/dL Creatinine 0.82 (0.5-1.4) mg/dL Estim Creat Clear Calc 67.2 Estimated GFR > 60 Random Glucose 173 H (60-115) mg/dL Lactic Acid (0.5-2.0) mmol/L Calcium 9.5 (8.4-10.2) mg/dL Magnesium 2.2 (1.6-2.6) mg/dL Total Bilirubin 0.5 (0.0-1.0) mg/dL Direct Bilirubin < 0.2 (0.0-0.5) mg/dL AST 33 H (5-31) U/L ALT 46 H (0-31) U/L Alkaline Phosphatase 153 H (39-117) U/L Total Protein 7.5 (6.5-8.0) g/dL Albumin 4.4 (3.5-5.0) g/dL Lipase 14 (8-78) U/L Urine Color Urine Appearance Urine pH (5.0-8.0) Ur Specific [place] (1.005-1.025) Urine Protein (NEG-TRACE) MG/DL Urine Glucose (UA) (NEG) MG/DL Urine Ketones (NEG) MG/DL Urine Blood (NEG) Urine Nitrite (NEG) Ur Leukocyte Esterase (NEG) Stool Occult Blood (NEGATIVE) 08/07/20 08/07/20 08/07/20 Range/Units 08:43 08:43 11:19 WBC (4.8-10.8) X10*3/uL RBC (4.20-5.50) X10*6/uL Hgb (12.0-16.0) g/dl Hct (37-47) % MCV (80-98) fL MCH (27.0-33.0) pg MCHC (31.0-35.0) g/dl RDW (11.0-16.0) % Plt Count (160-400) X10*3/uL MPV (9.4-12.3) fL Immature Gran % (Auto) (0.0-0.4) % Neut % (Auto) (45-73) % Lymph % (Auto) (20-40) % [place] % (Auto) (2-11) % Eos % (Auto) (0-4) % Baso % (Auto) (0-2) % Lymph # (Auto) (1.2-4.9) X10*3/uL [place] # (Auto) (0.1-1.2) X10*3/uL Eos # (Auto) (0.0-0.4) X10*3/uL Baso # (Auto) (0.0-0.2) X10*3/uL Abs Immat Gran (auto) (0.00-0.03) X10*3/uL Absolute Neuts (auto) (2.0-8.3) X10*3/uL Absolute Nucleated RBC (0.0-0.012) X10*3/uL Nucleated RBC % (auto) (0.0-0.2) /100WBC Smear Tech's Comments PT (10.8-13.0) SEC INR (0.9-1.1) APTT (24.1-38.0) SEC Sodium (135-145) mmol/L Potassium (3.3-5.1) mmol/L Chloride (96-108) mmol/L Carbon Dioxide (22-29) mmol/L Anion Gap (12-20) BUN (9-16) mg/dL Creatinine (0.5-1.4) mg/dL Estim Creat Clear Calc Estimated GFR Random Glucose (60-115) mg/dL Lactic Acid 1.9 (0.5-2.0) mmol/L Calcium (8.4-10.2) mg/dL Magnesium (1.6-2.6) mg/dL Total Bilirubin (0.0-1.0) mg/dL Direct Bilirubin (0.0-0.5) mg/dL AST (5-31) U/L ALT (0-31) U/L Alkaline Phosphatase (39-117) U/L Total Protein (6.5-8.0) g/dL Albumin (3.5-5.0) g/dL Lipase (8-78) U/L Urine Color YELLOW Urine Appearance CLEAR Urine pH 5.0 (5.0-8.0) Ur Specific [place] <= 1.005 (1.005-1.025) Urine Protein NEG (NEG-TRACE) MG/DL Urine Glucose (UA) NEG (NEG) MG/DL Urine Ketones NEG (NEG) MG/DL Urine Blood 2+ H (NEG) Urine Nitrite NEG (NEG) Ur Leukocyte Esterase NEG (NEG) Stool Occult Blood POSITIVE (NEGATIVE) Discharge Plan Discharge Clinical Impression: Colitis, Acute lower gastrointestinal bleeding Patient Disposition: Admitted As Inpatient Prescriptions: No [facility] Myrbetriq 25 mg tablet extended release 24 hr 25 mg PO DAILY 30 Days Qty: 30 RF: 6 Flovent HFA 44 mcg/actuation HFA aerosol inhaler 1 puff inhalation BID Qty: 31.8 RF: 1 sertraline 25 mg Tablet 75 mg PO DAILY RF: 0 ibuprofen 600 mg tablet 600 mg PO Q8H PRN (Reason: pain) Qty: 30 RF: 0 albuterol sulfate 90 mcg/actuation HFA aerosol inhaler 2 puff PO Q6H PRN (Reason: Wheezing) RF: 0 terbutaline 5 mg tablet 5 mg PO TID PRN (Reason: ASTHMA) RF: 0 (DME) CPAP Machine/Device Device See Rx Instructions .ROUTE .MEDSUPPLY Qty: 1 RF: 0 levothyroxine 50 mcg tablet 50 mcg PO DAILY 90 Days Qty: 90 RF: 1 omeprazole 20 mg capsule,delayed release(DR/EC) 20 mg PO DAILY 90 Days Qty: 90 RF: 3 PMFSH Past Medical History Medical History Depression with anxiety Dysphagia GERD (gastroesophageal reflux disease) Hiatal hernia Hypothyroidism Mild asthma Mild cognitive impairment GILDA (obstructive sleep apnea) Pure hypercholesterolemia Surgical History H/O colonoscopy History of benign ovarian tumor History of esophagogastroduodenoscopy (EGD) Family History Family History Mother Diabetes Hypertension Stroke Father Lung cancer Social History Social History (Updated 07/02/20 @ 12:50 by Chantell Pruett Rox) Household Members: None Housing: Apartment Alcohol intake: current Alcohol intake frequency: does not drink Smoking Status: Never smoker Smoked in Last 30 Days: No Second Hand Smoke Exposure: No Use of substances other than those prescribed or required for medical reasons: No Advance Directives: Yes Advance Directives on File: Yes Advance Directives Date on File: 04/03/20 Current occupational status: retired Current occupation: right handed
[2020-08-07] MEDS: 0.9 % Sodium Chloride 1,000 ML 999 ML IVCONT (08:45)
[2020-08-07 08:58] LABS: Basophils Absolute Auto 0.1 X10*3/uL (0.0-0.2); Basophils Percent Auto 0.3 % (0-2); Eosinophils Absolute Auto 0.1 X10*3/uL (0.0-0.4); Eosinophils Percent Auto 0.5 % (0-4); Hematocrit 46.5 % (37-47); Hemoglobin 14.7 g/dl (12.0-16.0); Imm Gran Abs Auto 0.06 X10*3/uL (0.00-0.03); Imm Gran Pct Auto 0.4 % (0.0-0.4); Lymphocytes Absolute Auto 0.7 X10*3/uL (1.2-4.9); Lymphocytes Percent Auto 4.4 % (20-40); MANUAL DIFF FLAG SCAN; Mean Corpuscular HGB Conc 31.6 g/dl (31.0-35.0); Mean Corpuscular Hemoglobin 26.9 pg (27.0-33.0); Mean Corpuscular Volume 85.2 fL (80-98); Mean Platelet Volume 10.7 fL (9.4-12.3); Monocytes Absolute Auto 0.7 X10*3/uL (0.1-1.2); Neutrophils Percent Auto 90.4 % (45-73); Platelet Count 264 X10*3/uL (160-400); Red Blood Count 5.46 X10*6/uL (4.20-5.50); Red Cell Distribution Width 13.8 % (11.0-16.0); SCAN SMEAR FLAG 1; White Blood Count 16.6 X10*3/uL (4.8-10.8)
[2020-08-07 09:00] LABS: OBS Int Ctl Valid YES; OBS1 POSITIVE (NEGATIVE)
[2020-08-07 09:13] LABS: Prothrombin Time 11.6 SEC (10.8-13.0)
[2020-08-07 09:16] LABS: Lactic Acid 1.9 mmol/L (0.5-2.0); Partial Thromboplastin Time 32.9 SEC (24.1-38.0)
[2020-08-07 09:20] LABS: SLIDE REVIEW VERIFIED
[2020-08-07 09:26] LABS: Alanine Aminotransferase 46 U/L (0-31); Albumin Level 4.4 g/dL (3.5-5.0); Alkaline Phosphatase 153 U/L (39-117); Anion Gap 19 (12-20); Aspartate Amino Transferase 33 U/L (5-31); Bilirubin Direct < 0.2 mg/dL (0.0-0.5); Bilirubin Total 0.5 mg/dL (0.0-1.0); Blood Urea Nitrogen 19 mg/dL (9-16); Calcium 9.5 mg/dL (8.4-10.2); Carbon Dioxide 23 mmol/L (22-29); Chloride 100 mmol/L (96-108); Creatinine Clr Calc Pharmacy 67.2; Estimated Glomerular Filt Rate > 60; Glucose Random 173 mg/dL (60-115); Lipase 14 U/L (8-78); Magnesium 2.2 mg/dL (1.6-2.6); Potassium 4.7 mmol/L (3.3-5.1); Sodium 137 mmol/L (135-145); Total Protein 7.5 g/dL (6.5-8.0)
[2020-08-07 10:30] VITALS: BP 145/72; PULSE 73; RESP 18; O2SAT 96
[2020-08-07 11:30] LABS: Glucose Urine UA NEG (NEG); Leukocyte Esterase Urine NEG (NEG); Nitrite Urine NEG (NEG); Specific Gravity - Urine <= 1.005 (1.005-1.025); Urine Blood 2+ (NEG); Urine Ketones NEG (NEG); Urine Protein NEG (NEG-TRACE)
[2020-08-07 11:31] LABS: Appearance Urine CLEAR; Color Urine YELLOW
[2020-08-07] MEDS: Albuterol Sulfate 90 MCG 8 GM INHALER 2 PUFF INHALE (11:31)
[2020-08-07] MEDS: metroNIDAZOLE/NS 500 MG/100 ML PIGGYBACK 100 MG IV ×3 (11:32→21:31)
[2020-08-07] MEDS: levoFLOXacin/D5W 500 MG/100 ML PIGGYBACK 100 MG IV (11:32)
[2020-08-07 11:33] VITALS: BP 132/55; PULSE 75; RESP 18; O2SAT 97
[2020-08-07 11:48] LABS: Bacteria Urine 1+ /LPF; Squamous Epithelial Cell Urine 2+ /LPF; WBC Urine 0-2 /HPF (0-4)
[2020-08-07 12:10] LABS: COVID-19 Test Negative (Negative); IDNOW Serial# 9DD0AD1C
--- NOTE | 2020-08-07 14:24 | HP_ITS ---
DATE OF SERVICE: 08/07/2020 CHIEF COMPLAINT: Abdominal pain/bright red blood per rectum. HISTORY OF PRESENT ILLNESS: This is a 74-year-old female, patient of Dr. Shania Briggs, with past medical history significant for asthma, history of esophagitis, diverticulitis, GERD, obstructive sleep apnea, depression, and hypothyroidism. The patient presented to the emergency room due to lower abdominal pain of 24 hours duration associated with bloody bowel movement. The patient had 2 episodes of bloody stool last night, mostly blood. The patient also became dizzy with episodes of bleeding. After arrival to the emergency room, the patient had 2 more episodes. The patient's abdominal pain improved in the emergency room. The patient denied any use of NSAIDs. Denies history of alcohol use. The patient denied any outside food. No recent history of travel. The patient had no associated fever, chills, nausea, or vomiting. No chest pain. The patient is not on any anticoagulation. The patient's workup in the emergency room revealed a WBC count of 16,600, hematocrit is stable at 46.5, and platelets are 264. INR of 1. Imaging study including a CT of the abdomen and pelvis showed left transverse splenic flexure and proximal descending colon mural thickening and pericolonic fat stranding suggestive of colitis. There is no proximal bowel obstruction noted. No free air or abscess seen. Differential included underlying neoplasm and less likely diverticulitis. The patient in the ER, received IV fluid, IV Levaquin, and Flagyl, and now being admitted for further evaluation and treatment. PAST MEDICAL HISTORY: Significant for: 1. History of depression and anxiety. 2. History of dysphagia. 3. History of GERD. 4. History of hiatal hernia. 5. History of hypothyroidism. 6. History of mild asthma. 7. History of mild cognitive impairment. 8. History of obstructive sleep apnea. 9. History of hypercholesterolemia. PAST SURGICAL HISTORY: Significant for history of benign ovarian tumor. FAMILY HISTORY: The patient's mother was and had diabetes, hypertension, and stroke. The patient's father of lung cancer. SOCIAL HISTORY: The patient denies history of smoking or alcohol use. The patient walks by herself and at times use a walker. She lives at home with her daughter. REVIEW OF SYSTEMS: CARDIOVASCULAR RADIOLOGIC TECHNOLOGIST: The patient denies any headache, dizziness, or lightheadedness. CVS: No chest pain. No palpitations. RESPIRATORY: No cough. No sputum production or shortness of breath. : No urinary symptoms of urgency and frequency. MUSCULOSKELETAL: No back pain. Rest of all other systems are reviewed and are negative. PHYSICAL EXAMINATION: GENERAL: The patient is resting comfortably and does not appear to be in acute distress. VITAL SIGNS: She is afebrile with a pulse of 75, respiratory rate 18, blood pressure 132/55, and a pulse ox of 97% on room air. HEENT: Pupils are equal, round, and reactive to light and accommodation. NECK: Supple. No increased JVD. LUNGS: Clear to auscultation bilaterally. HEART: Regular rhythm. No murmur, regurgitation, or additional sound appreciated. ABDOMEN: Obese, soft, and nontender. Bowel sounds are audible. Abdominal scar, well healed. SKIN: Warm and dry. No rashes. EXTREMITIES: Without clubbing, cyanosis, or edema. NEURO: Examination is nonfocal. PSYCH: Appropriate affect. ASSESSMENT AND PLAN: This is a 74-year-old female patient with multiple medical issues, presented to [facility] from home due to symptoms of lower abdominal pain and bright red blood per rectum of 24-hour duration. At present, the patient has no abdominal pain, had 2 episodes of bright red blood per rectum in the emergency room. The patient is currently asking for decaffeinated coffee. 1. Lower abdominal pain with bright red blood per rectum. The patient's CT findings are suggestive of colitis, less likely ischemic colitis. There is a concern for underlying malignancy. We will treat the patient with IV antibiotics and IV fluids. We will place her on clear liquid diet. We will follow her hematocrit closely. The patient will need a colonoscopy once she is hemodynamically stable. We will obtain a surgical evaluation. 2. History of hypothyroidism. We will continue her home dose of levothyroxine. 3. History of gastroesophageal reflux disease. We will continue proton pump inhibitors. 4. History of asthma. No acute exacerbation noted. 5. History of obstructive sleep apnea. We will discuss with the patient. If she uses CPAP at home, that will be resumed. 6. Deep vein thrombosis prophylaxis. We will avoid anticoagulation. The patient will be placed on compression boots. MD MINDY Wolfe/WERO / [id number]
[2020-08-07] MEDS: Dextrose 5 % and 0.9 % NaCl 1,000 ML 80 ML IVCONT (14:35)
[2020-08-07 14:59] VITALS: BP 115/72; PULSE 84; RESP 18; O2SAT 95
[2020-08-07 18:53] VITALS: BP 148/81; PULSE 81; RESP 20; TEMP 37.1; O2SAT 95
[2020-08-07 22:00] VITALS: BP 135/73; PULSE 78; RESP 20; TEMP 36.9; O2SAT 96
[2020-08-08] MEDS: Dextrose 5 % and 0.9 % NaCl 1,000 ML 80 ML IVCONT ×2 (02:18→14:08)
[2020-08-08 06:00] VITALS: BP 138/76; PULSE 72; RESP 16; TEMP 36.4; O2SAT 98
[2020-08-08] MEDS: metroNIDAZOLE/NS 500 MG/100 ML PIGGYBACK 100 MG IV ×3 (06:15→21:14)
[2020-08-08 06:43] LABS: Basophils Absolute Auto 0.1 X10*3/uL (0.0-0.2); Basophils Percent Auto 0.5 % (0-2); Eosinophils Absolute Auto 0.2 X10*3/uL (0.0-0.4); Eosinophils Percent Auto 1.7 % (0-4); Hematocrit 41.8 % (37-47); Hemoglobin 13.5 g/dl (12.0-16.0); Imm Gran Abs Auto 0.05 X10*3/uL (0.00-0.03); Imm Gran Pct Auto 0.4 % (0.0-0.4); Lymphocytes Percent Auto 8.2 % (20-40); MANUAL DIFF FLAG NO; Mean Corpuscular HGB Conc 32.3 g/dl (31.0-35.0); Mean Corpuscular Hemoglobin 27.3 pg (27.0-33.0); Mean Corpuscular Volume 84.6 fL (80-98); Mean Platelet Volume 10.6 fL (9.4-12.3); Monocytes Absolute Auto 0.7 X10*3/uL (0.1-1.2); Monocytes Percent Auto 5.9 % (2-11); Neutrophils Absolute Auto 10.2 X10*3/uL (2.0-8.3); Neutrophils Percent Auto 83.3 % (45-73); Platelet Count 256 X10*3/uL (160-400); Red Blood Count 4.94 X10*6/uL (4.20-5.50); Red Cell Distribution Width 13.8 % (11.0-16.0); White Blood Count 12.2 X10*3/uL (4.8-10.8)
[2020-08-08] MEDS: Acetaminophen 325 MG TABLET 650 MG PO (07:24)
[2020-08-08 07:29] LABS: Anion Gap 15 (12-20); Blood Urea Nitrogen 12 mg/dL (9-16); Calcium 8.4 mg/dL (8.4-10.2); Carbon Dioxide 23 mmol/L (22-29); Chloride 104 mmol/L (96-108); Creatinine Clr Calc Pharmacy 68.9; Estimated Glomerular Filt Rate > 60; Glucose Random 147 mg/dL (60-115); Potassium 3.8 mmol/L (3.3-5.1); Sodium 138 mmol/L (135-145)
[2020-08-08] MEDS: levoFLOXacin/D5W 500 MG/100 ML PIGGYBACK 100 MG IV (07:44)
--- NOTE | 2020-08-08 08:32 | MHC.CM.PN ---
pt lives in a two family home in which her daughter lives on the second floor. she reports that she is independent in her care and that her daughter helps her c her needs, such as grocery shopping or transportation out of the house. the daughter will provide transportation at [place]. she says she hasn't driven a car in a while but is considering getting behind the wheel again. she uses a walker c ambulation and has had the vna in the past, however this time she says she would prefer not to have any vna svcs at [place]. [place] plan is home no svcs. cm to cont. to follow.
[2020-08-08 08:45] VITALS: BP 116/70; PULSE 72; RESP 18; TEMP 36.6; O2SAT 94
--- NOTE | 2020-08-08 12:00 | P.PNIM_ITS ---
Subjective Subjective Date of Service: 08/09/20 Interval History: Patient denies abdominal pain but had 1 more episode of bright red blood per rectum overnight, denies fever chills no nausea vomiting is being followed by Dr. Tracey from Gastroenterology. ROS General no headache, no dizziness ,no fever chills. CVS no chest pain, no palpitation. Respiratory no cough, no sob. Gastrointestinal no nausea, no vomiting, no abdominal pain Physical Exam Vital Signs: Vital Signs: Last Vital Signs Temp 97.8 F 08/08/20 08:45 Pulse 72 08/08/20 08:45 Resp 18 08/08/20 08:45 BP 116/70 08/08/20 08:45 Pulse Ox 94 08/08/20 08:45 Body Mass Index 41.5 General resting comfortably in no acute distress. Neck is supple no JVD. CVS regular rate rhythm, Respiratory lungs clear to auscultation, no respiratory distress, no wheeze, no rhonchi. Gastrointestinal abdomen soft, nontender, bowel sounds audible, no guarding , no rigidity. Extremities no clubbing cyanosis or edema. Neuro nonfocal , speech clear. Skin no rash Objective Data Current Medications Generic Name Dose Route Start Last Admin Trade Name Freq PRN Reason Stop Dose Admin Acetaminophen 650 mg 08/07/20 13:39 08/08/20 07:24 Acetaminophen 325 Mg Tablet PO 650 mg Q6H PRN Administration PAIN Albuterol Sulfate 2 puff 08/07/20 11:17 08/07/20 11:31 Albuterol Sulfate 90 Mcg 8 Gm Inhaler INHALE 2 puff Q6H PRN Administration sob Dextrose/Sodium Chloride 1,000 mls @ 80 mls/hr 08/07/20 13:45 08/08/20 02:18 D5ns IVCONT 80 mls/hr .[id number] UYEN Administration Metronidazole 500 mg in 100 mls @ 100 mls/hr 08/07/20 14:00 08/08/20 07:19 Flagyl IV Infused Q8H UYEN Infusion Levofloxacin 500 mg in 100 mls @ 100 mls/hr 08/08/20 07:30 08/08/20 08:48 Levaquin IV Infused Q24H UYEN Infusion Ondansetron HCl 4 mg 08/07/20 13:39 Ondansetron Hcl 4 Mg/2 Ml Vial IVPUSH Q8H PRN Nausea Labs CBC & Chem 7: 08/09/20 06:14 08/08/20 06:08 Microbiology Microbiology Results: Microbiology 08/07/20 09:33 Blood - Venous Blood Culture - Preliminary No growth after 24 hours. 08/07/20 08:43 Blood - Venous Blood Culture - Preliminary No growth after 24 hours. Assessment and Plan (1) Colitis: Status: Acute (2) Acute lower gastrointestinal bleeding: Status: Acute (3) Hypothyroidism: Status: Acute (4) Depression with anxiety: Status: Acute (5) GILAD (obstructive sleep apnea): Status: Acute (6) Pure hypercholesterolemia: Status: Acute Assessment and Plan: 74-year-old female patient with multiple medical issues, presented to [facility] from home due to symptoms of lower abdominal pain and brightred blood per rectum of 24-hour duration. At present, the patient has no abdominal pain, had 2 episodes of bright red blood per rectum in the emergency room. The patient is currently asking for decaffeinated coffee. 1. Acute Colitis Lower abdominal pain resolved,but had 1 more episode of bright red blood per rectum since admit, CT abdomen suggestive of colitis, less likely ischemic colitis. Patient is status post colonoscopy by Dr. Avina in 2019, and underwent excisional polypectomy x1 pathology revealed tubular adenoma with no evidence of high-grade dysplasia or invasive carcinoma, will refer her back to gastroenterology for follow-up, at present hematocrit is stable, continue IV fluid and clear liquid diet, on IV Levaquin and Flagyl day 2 Follow CBC, if no further bleed will advance diet, continue supportive care. 2. History of hypothyroidism. Continue levothyroxine. 3. History of gastroesophageal reflux disease/esophagitis. Continue PPI. 4. History of asthma. No acute exacerbation noted. 5. History of obstructive sleep apnea. No somnolence, no shortness 6. Elevated LFTs, no abdominal pain Deep vein thrombosis prophylaxis. will avoid anticoagulation continue compression boots.
[2020-08-08 14:00] VITALS: RESP 16
[2020-08-08 15:29] VITALS: BP 131/74; PULSE 84; RESP 16; TEMP 36.6; O2SAT 95
[2020-08-08 19:19] VITALS: BP 145/71; PULSE 78; RESP 18; TEMP 36.6; O2SAT 97
[2020-08-08 23:13] VITALS: BP 136/68; PULSE 71; RESP 19; TEMP 36.3; O2SAT 95
[2020-08-09] MEDS: Dextrose 5 % and 0.9 % NaCl 1,000 ML 80 ML IVCONT ×2 (05:18→14:35)
[2020-08-09] MEDS: Omeprazole 20 MG CAPSULE.DR PO (05:19)
[2020-08-09] MEDS: metroNIDAZOLE/NS 500 MG/100 ML PIGGYBACK 100 MG IV ×3 (05:19→21:58)
[2020-08-09] MEDS: Levothyroxine Sodium 50 MCG TABLET PO (05:19)
[2020-08-09 05:59] VITALS: BP 142/69; PULSE 78; RESP 19; TEMP 36.3; O2SAT 96
[2020-08-09 06:33] LABS: MANUAL DIFF FLAG NO
[2020-08-09 06:50] LABS: Basophils Absolute Auto 0.1 X10*3/uL (0.0-0.2); Basophils Percent Auto 0.5 % (0-2); Eosinophils Absolute Auto 0.2 X10*3/uL (0.0-0.4); Eosinophils Percent Auto 2.4 % (0-4); Hematocrit 40.3 % (37-47); Hemoglobin 12.6 g/dl (12.0-16.0); Imm Gran Abs Auto 0.04 X10*3/uL (0.00-0.03); Imm Gran Pct Auto 0.4 % (0.0-0.4); Lymphocytes Absolute Auto 0.9 X10*3/uL (1.2-4.9); Lymphocytes Percent Auto 8.7 % (20-40); Mean Corpuscular HGB Conc 31.3 g/dl (31.0-35.0); Mean Corpuscular Volume 86.5 fL (80-98); Mean Platelet Volume 10.4 fL (9.4-12.3); Monocytes Absolute Auto 0.6 X10*3/uL (0.1-1.2); Monocytes Percent Auto 6.1 % (2-11); Neutrophils Absolute Auto 8.1 X10*3/uL (2.0-8.3); Neutrophils Percent Auto 81.9 % (45-73); Platelet Count 219 X10*3/uL (160-400); Red Blood Count 4.66 X10*6/uL (4.20-5.50); White Blood Count 9.9 X10*3/uL (4.8-10.8)
[2020-08-09 07:29] LABS: Alanine Aminotransferase 24 U/L (0-31); Albumin Level 3.6 g/dL (3.5-5.0); Alkaline Phosphatase 109 U/L (39-117); Aspartate Amino Transferase 15 U/L (5-31); Bilirubin Direct 0.2 mg/dL (0.0-0.5); Bilirubin Total 0.4 mg/dL (0.0-1.0); Total Protein 5.9 g/dL (6.5-8.0)
[2020-08-09 08:02] VITALS: BP 150/88; PULSE 73; RESP 16; TEMP 36.7; O2SAT 95
[2020-08-09] MEDS: levoFLOXacin/D5W 500 MG/100 ML PIGGYBACK 100 MG IV (08:15)
[2020-08-09] MEDS: Mirabegron 25 MG TAB.ER.24H PO (08:15)
[2020-08-09] MEDS: Sertraline HCL 100 MG TABLET PO (08:16)
[2020-08-09] MEDS: Sertraline HCL 25 MG TABLET PO (08:16)
--- NOTE | 2020-08-09 11:41 | MHC.CM.PN ---
PER PHYSICIAN ROUNDS,PLAN TO ADVANCE DIET TODAY. NO PLAN FOR DISCHARGE YET.
[2020-08-09 11:59] VITALS: BP 158/79; PULSE 69; RESP 17; TEMP 36.7; O2SAT 95
--- NOTE | 2020-08-09 14:04 | P.PNIM_ITS ---
Subjective Subjective Date of Service: 08/10/20 Interval History: Patient not feeling well this morning, denies fever chills had 1 regular bowel movement yesterday with no blood complaining of mild nausea, no abdominal pain, no other acute issues overnight. ROS General no headache, no dizziness ,no fever chills. CVS no chest pain, no palpitation. Respiratory no cough, no sob. Gastrointestinal mild nausea, no abdominal pain, no recurrent GI bleed. Physical Exam Vital Signs: Vital Signs: Last Vital Signs Temp 98.1 F 08/09/20 11:59 Pulse 69 08/09/20 11:59 Resp 17 08/09/20 11:59 BP 158/79 H 08/09/20 11:59 Pulse Ox 95 08/09/20 11:59 Body Mass Index 41.5 General resting comfortably in no acute distress. Neck is supple no JVD. CVS regular rate rhythm, Respiratory lungs clear to auscultation, no respiratory distress, no wheeze, no rhonchi. Gastrointestinal abdomen soft, nontender, bowel sounds audible, no guarding , no rigidity. Extremities no clubbing cyanosis or edema. Neuro nonfocal , speech clear. Skin no rash Objective Data Current Medications Generic Name Dose Route Start Last Admin Trade Name Freq PRN Reason Stop Dose Admin Acetaminophen 650 mg 08/07/20 13:39 08/08/20 07:24 Acetaminophen 325 Mg Tablet PO 650 mg Q6H PRN Administration PAIN Albuterol Sulfate 2 puff 08/07/20 11:17 08/07/20 11:31 Albuterol Sulfate 90 Mcg 8 Gm Inhaler INHALE 2 puff Q6H PRN Administration sob Albuterol Sulfate 2 puff 08/08/20 12:11 Albuterol Sulfate 90 Mcg 8 Gm Inhaler INHALE Q6H PRN Wheezing Dextrose/Sodium Chloride 1,000 mls @ 80 mls/hr 08/07/20 13:45 08/09/20 05:18 D5ns IVCONT 80 mls/hr .[id number] UYEN Administration Metronidazole 500 mg in 100 mls @ 100 mls/hr 08/07/20 14:00 08/09/20 06:23 Flagyl IV Infused Q8H UYEN Infusion Levofloxacin 500 mg in 100 mls @ 100 mls/hr 08/08/20 07:30 08/09/20 11:36 Levaquin IV Infused Q24H UYEN Infusion Levothyroxine Sodium 50 mcg 08/08/20 12:15 08/09/20 05:19 Levothyroxine Sodium 50 Mcg Tablet PO 50 mcg DAILY@0630 UYEN Administration Mirabegron 25 mg 08/09/20 09:00 08/09/20 08:15 Mirabegron 25 Mg Tab.Er.24h PO 25 mg DAILY UYEN Administration Omeprazole 20 mg 08/09/20 06:00 08/09/20 05:19 Omeprazole 20 Mg Capsule.Dr PO 20 mg DAILY@0600 UYEN Administration Ondansetron HCl 4 mg 08/07/20 13:39 Ondansetron Hcl 4 Mg/2 Ml Vial IVPUSH Q8H PRN Nausea Sertraline HCl 100 mg 08/09/20 09:00 08/09/20 08:16 Sertraline Hcl 100 Mg Tablet PO 100 mg DAILY UYEN Administration Sertraline HCl 25 mg 08/09/20 09:00 08/09/20 08:16 Sertraline Hcl 25 Mg Tablet PO 25 mg DAILY UYEN Administration Labs CBC & Chem 7: 08/09/20 06:14 08/08/20 06:08 Microbiology Microbiology Results: Microbiology 08/07/20 09:33 Blood - Venous Blood Culture - Preliminary No growth after 48 hours. 08/07/20 08:43 Blood - Venous Blood Culture - Preliminary No growth after 48 hours. Assessment and Plan (1) Colitis: Status: Acute (2) Acute lower gastrointestinal bleeding: Status: Acute (3) GERD (gastroesophageal reflux disease): Status: Acute (4) Erosive esophagitis: Status: Acute (5) Depression with anxiety: Status: Acute Assessment and Plan: 74-year-old female patient with multiple medical issues, presented to [facility] from home due to symptoms of lower abdominal pain and brightred blood per rectum of 24-hour duration. At present, the patient has no abdominal pain, had 2 episodes of bright red blood per rectum in the emergency room. The pat ient is currently asking for decaffeinated coffee. 1. Acute Colitis No further episodes of bright red blood per rectum, no abdominal pain has mild nausea this a.m. hematocrit stable, had 1 normal bowel movement yesterday Will advance diet to full liquid, encourage out of bed to chair, continue antiemetic, continue IV Flagyl and Levaquin date CT abdomen suggestive of colitis, less likely ischemic colitis. Patient is status post colonoscopy by Dr. Avina in 2019, and underwent excisional polypectomy x1 pathology revealed tubular adenoma with no evidence of high-grade dysplasia or invasive carcinoma, will refer her back to gastroenterology Follow CBC, advance diet as tolerated, continue supportive care. 2. History of hypothyroidism. Continue levothyroxine. 3. History of gastroesophageal reflux disease/esophagitis. Continue PPI. 4. History of asthma. No acute exacerbation noted. 5. History of obstructive sleep apnea. No somnolence, no shortness of breath. 6. Elevated LFTs, no abdominal pain Deep vein thrombosis prophylaxis. will avoid anticoagulation continue compression boots.
[2020-08-09 22:00] VITALS: BP 123/56; PULSE 74; RESP 16; TEMP 36.8; O2SAT 94
[2020-08-10] MEDS: Dextrose 5 % and 0.9 % NaCl 1,000 ML 80 ML IVCONT (02:52)
[2020-08-10] MEDS: Omeprazole 20 MG CAPSULE.DR PO (05:44)
[2020-08-10] MEDS: metroNIDAZOLE/NS 500 MG/100 ML PIGGYBACK 100 MG IV (05:44)
[2020-08-10] MEDS: Levothyroxine Sodium 50 MCG TABLET PO (05:44)
[2020-08-10 06:00] VITALS: RESP 16
[2020-08-10] MEDS: Sertraline HCL 25 MG TABLET PO (08:00)
[2020-08-10] MEDS: Mirabegron 25 MG TAB.ER.24H PO (08:00)
[2020-08-10] MEDS: Sertraline HCL 100 MG TABLET PO (08:00)
[2020-08-10] MEDS: levoFLOXacin/D5W 500 MG/100 ML PIGGYBACK 100 MG IV (08:00)
[2020-08-10 08:06] VITALS: BP 135/75; PULSE 70; RESP 17; TEMP 36.2; O2SAT 96
--- NOTE | 2020-08-10 12:40 | PM.DS ---
DS: Providers Provider Date of Service: 08/10/20 Date of admission: 08/07/20 13:39 Primary care physician: Shania Edmonds MD DS: Diagnosis Discharge Diagnosis (1) Colitis: Status: Acute (2) Acute lower gastrointestinal bleeding: Status: Acute (3) GERD (gastroesophageal reflux disease): Status: Acute (4) Erosive esophagitis: Status: Acute (5) Depression with anxiety: Status: Acute DS: Medications Discharge Medications Home Medications: Home Medications Medication Instructions Recorded Confirmed albuterol sulfate 90 mcg/actuation 2 puff PO Q6H PRN 02/23/20 08/07/20 aerosol inhaler levothyroxine 50 mcg PO DAILY@0630 08/07/20 08/07/20 sertraline 25 mg PO DAILY 08/07/20 08/07/20 sertraline 100 mg PO DAILY 08/07/20 08/07/20 Previous Rx's Medication Instructions Recorded mirabegron 25 mg tablet,extended 25 mg PO DAILY 30 Days #30 tab 02/22/20 release 24 hr fluticasone propionate 44 1 puff INHALATION BID #31.8 cap 05/14/20 mcg/actuation HFA aerosol inhaler CPAP #1 ea 06/26/20 omeprazole 20 mg capsule,delayed 20 mg PO DAILY 90 Days #90 cap 07/02/20 release levofloxacin 500 mg PO Q24H #5 tab 08/10/20 metronidazole 500 mg PO Q12H #10 tab 08/10/20 DS: Summary Hospital Course Hospital Course: CHIEF COMPLAINT: Abdominal pain/bright red blood per rectum. HISTORY OF PRESENT ILLNESS: This is a 74-year-old female, patient of Dr. Shania Briggs, with past medical history significant for asthma, history of esophagitis, diverticulitis, GERD,obstructive sleep apnea, depression, and hypothyroidism. The patient presented to the emergency room due to lower abdominal pain of 24 hours duration associated with bloody bowel movement. The patient had 2 episodes of bloody stool last night, mostly blood. The patient also became dizzy with episodes of bleeding. After arrival to the emergency room, the patient had 2 more episodes. The patient's abdominal pain improved in the emergency room. The patient denied any use of NSAIDs. Denies history of alcohol use. The patient denied any outside food. No recent history of travel. The patient had no associated fever, chills, nausea, or vomiting. No chest pain. The patient is not on any anticoagulation. The patient's workup in the emergency room revealed a WBC count of 16,600, hematocrit is stable at 46.5, and platelets are 264. INR of 1. Imaging study including a CT of the abdomen and pelvis showed left transverse splenic flexure and proximal descending colon mural thickening and pericolonic fat stranding suggestive of colitis. There is no proximal bowel obstruction noted. No free air or abscess seen. Differential included underlying neoplasm and less likely diverticulitis. The patient in the ER, received IV fluid, IV Levaquin, and Flagyl, and now being admitted for further evaluation and treatment. PAST MEDICAL HISTORY: Significant for: 1. History of depression and anxiety. 2. History of dysphagia. 3. History of GERD. 4. History of hiatal hernia. 5. History of hypothyroidism. 6. History of mild asthma. 7. History of mild cognitive impairment. 8. History of obstructive sleep apnea. 9. History of hypercholesterolemia. PAST SURGICAL HISTORY: Significant for history of benign ovarian tumor. Hospital course 74-year-old female patient with multiple medical issues, presented to [facility] from home due to symptoms of lower abdominal pain and brightred blood per rectum of 24-hour duration. At present, the patient has no abdominal pain, had 2 episodes of bright red blood per rectum in the emergency room. The patient is currently asking for decaffeinated coffee. 1. Acute Colitis with bright red blood per rectum, patient had 1 episode of of bright red blood per rectum, after admission, since then moving normal bowel, abdominal pain has resolved tolerating diet No nausea, no vomiting,no fever ,hct remains stable therefore patient is being discharged home on by mouth Flagyl and Levaquin to finish a total 7 day course of antibiotic, patient is being followed by Gastroenterology as outpatient last colonoscopy was in [address] Avina and status post upper endoscopy by Dr. Tracey in 2019 recommend outpatient follow-up with Gastroenterology in next 1-2 weeks 2. History of hypothyroidism. Continue levothyroxine. 3. History of gastroesophageal reflux disease/esophagitis. Continue PPI. 4. History of asthma. No acute exacerbation noted. 5. History of obstructive sleep apnea. No somnolence, no shortness of breath, continue cpap. 6. Transaminitis resolved. Time Spent with Patient Time attestation: Total time spent providing and/or coordinating discharge services: Discharge coordination time: Greater than 30 minutes Physical Exam Vital Signs: Vital Signs: Last Vital Signs Temp 97.1 F 08/10/20 08:06 Pulse 70 08/10/20 08:06 Resp 17 08/10/20 08:06 BP 135/75 08/10/20 08:06 Pulse Ox 96 08/10/20 08:06 Body Mass Index 41.5 General resting comfortably in no acute distress. Neck is supple no JVD. CVS regular rate rhythm, Respiratory lungs clear to auscultation, no respiratory distress, no wheeze, no rhonchi. Gastrointestinal abdomen soft, nontender, bowel sounds audible, no guarding , no rigidity. Extremities no clubbing cyanosis or edema. Neuro nonfocal , speech clear. Skin no rash DS: Data Data Completed and Pending Labs on day of discharge: Preliminary micro results at discharge 08/07/20 09:33 Blood Culture - Preliminary Blood - Venous No growth after 48 hours. 08/07/20 08:43 Blood Culture - Preliminary Blood - Venous No growth after 48 hours. Discharge Plan Discharge Patient Disposition: Home, Self-Care Referrals: Shania Alberts MD [Primary Care Provider] - Discharge Medications: New metronidazole 500 mg Tablet 500 mg PO Q12H Qty: 10 RF: 0 levofloxacin 500 mg Tablet 500 mg PO Q24H Qty: 5 RF: 0 Continued Myrbetriq 25 mg tablet extended release 24 hr 25 mg PO DAILY 30 Days Qty: 30 RF: 6 Flovent HFA 44 mcg/actuation HFA aerosol inhaler 1 puff inhalation BID Qty: 31.8 RF: 1 sertraline 100 mg tablet 100 mg PO DAILY RF: 0 sertraline 25 mg Tablet 25 mg PO DAILY RF: 0 levothyroxine 50 mcg tablet 50 mcg PO DAILY@0630 RF: 0 albuterol sulfate 90 mcg/actuation HFA aerosol inhaler 2 puff PO Q6H PRN (Reason: Wheezing) RF: 0 (DME) CPAP Machine/Device Device See Rx Instructions .ROUTE .MEDSUPPLY Qty: 1 RF: 0 omeprazole 20 mg capsule,delayed release(DR/EC) 20 mg PO DAILY 90 Days Qty: 90 RF: 3 Discharge Orders: Discharge Order (Routine); Ordered 08/10/20 Ordered By: Kina Ortiz Diet: low fat, low cholesterol Activity on Discharge: As tolerated Stand Alone Forms: Patient Portal Discharge page Care Plan Goals: As above Health Concerns: Colitis/bright red blood per rectum take low residue diet finished course of antibiotic as prescribed, return to check with any worsening symptoms of abdominal pain or blood per rectum Plan of Treatment: Follow-up with primary care physician and Gastroenterology with Dr. Tracey.in 1-2 weeks
--- NOTE | 2020-08-10 12:40 | MHC.CM.PN ---
PT DISCHARGING TODAY HOME SELF-CARE, DAUGHTER TO TRANSPORT.
== END 2020-08-10 15:00 | disposition home or self-care (01) | DRG 385 ==
LOC: HO.ED 11:42 → HO.EDOVER 13:51 → HO.S3 17:02
PROVIDERS: Physician Assistant; Admitting Provider Hospitalist; Emergency Provider Emergency Medicine; PCP Internal Medicine; Visit Provider Hospitalist
DX: K51.911 Ulcerative colitis, unspecified with rectal bleeding (principal); K21.01 Gastro-esophageal reflux disease with esophagitis, with bleeding; E03.9 Hypothyroidism, unspecified; F32.9 Major depressive disorder, single episode, unspecified; F41.9 Anxiety disorder, unspecified; G47.33 Obstructive sleep apnea (adult) (pediatric); E78.00 Pure hypercholesterolemia, unspecified; Z20.822 Contact with and (suspected) exposure to COVID-19; Z88.0 Allergy status to penicillin; Z88.2 Allergy status to sulfonamides; Z88.5 Allergy status to narcotic agent; Z99.89 Dependence on other enabling machines and devices; Z79.52 Long term (current) use of systemic steroids; Z79.890 Hormone replacement therapy; Z79.899 Other long term (current) drug therapy
CPT/HCPCS: 36415; 74178; 80048; 80076; 81001; 82272; 83605; 83690; 83735; 85025; 85610; 85730; 87040; 87635; 96365; 96368; 99285; J1956; Q9967

== ENCOUNTER 2020-10-03 11:16 | Outpatient (REF) | payer MEDICARE, OTHER, SELFPAY | END 2020-10-03 11:17 | disposition home or self-care (01) | LOC: HO.US 11:16 | PROVIDERS: Visit Provider Urology | DX: Z13.89 Encounter for screening for other disorder (principal) ==

== ENCOUNTER 2020-10-16 11:18 | Outpatient (REF) | payer MEDICARE, OTHER, SELFPAY ==
--- NOTE | ~2020-10-16 | US_ITS ---
EXAMINATION: US PELVIS LIMITED (BLADDER) CLINICAL INFORMATION: Poor urinary stream. COMPARISON: Ultrasound bladder dated 10/03/2020. CT abdomen and pelvis with intravenous contrast dated 02/07/2017. TECHNIQUE: Real-time imaging of the bladder. FINDINGS: BLADDER: There is no echogenic calculi or bladder wall thickening. Right ureteral jet is demonstrated; left is not. Prevoid bladder volume is 122 mL. US/US bladder IMPRESSION: Normal right ureteral jet seen. Distended bladder as per patient measures 122 mL. Postvoid volume not obtained. No echogenic stone or wall thickening.
== END 2020-10-16 11:19 | disposition home or self-care (01) ==
LOC: HO.US 11:18
PROVIDERS: Visit Provider Urology
DX: N32.81 Overactive bladder (principal); R39.12 Poor urinary stream
CPT/HCPCS: 76857

== ENCOUNTER → 2020-12-20 13:27 | Outpatient (BNVA) | payer MEDICARE, OTHER, SELFPAY | PROVIDERS: PCP Internal Medicine; Visit Provider Internal Medicine Gastroenterology | CPT/HCPCS: Q3014 ==

== ENCOUNTER 2021-02-04 11:06 | Day surgery (SDC) | payer MEDICARE, OTHER, SELFPAY ==
[2021-01-30 13:39] VITALS: BMI 41.1
--- NOTE | 2021-02-01 13:47 | HO.ANESPROP2 ---
Documented by User: Sonam Sparks NP 02/01/21 13:47 HPI - Anesthesia Eval Consult details Narrative: 75yo F for Upper Endoscopy s/p EGD with Dil 02/2020 with MAC PMF Active Problems Active Problems: All Active Problems (Updated 01/30/21 @ 13:38 by Rosa Camarena RN) Depression (Acute) Overactive bladder (Acute) Colon cancer screening (Acute) Colitis (Acute) Dysphagia (Acute) Hiatal hernia (Acute) Mild asthma (Acute) Past Medical History Medical History (Updated 02/04/21 @ 11:43 by Karla Chatman MD) Depression with anxiety Dysphagia Erosive esophagitis GERD (gastroesophageal reflux disease) Hiatal hernia Hypothyroidism Mild asthma Mild cognitive impairment GILDA (obstructive sleep apnea) Pure hypercholesterolemia Family History Family History Mother Diabetes Hypertension Stroke Father Lung cancer Surgical History Surgical History H/O colonoscopy History of benign ovarian tumor History of esophagogastroduodenoscopy (EGD) Social History Social History Household Members: Family Household Members Other:: daughter lives downstairs Housing: House Do you presently have visiting nurse or other home services: No Alcohol intake: current Alcohol intake frequency: does not drink Patient Tobacco Use Status: Tobacco use Unknown Second Hand Smoke Exposure: No Advance Directives: Yes Advance Directives Information Provided: Yes (previously provided) Advance Directives on File: Yes Advance Directives Date on File: 04/03/20 service: No Current occupational status: retired Current occupation: right handed Meds Allergies Allergy/AdvReac Type Severity Reaction Status Date / Time influenza virus vaccine, Allergy Severe SEVERE FLU Verified 12/20/20 13:28 specific SYMPTOMS [Influenza Virus Vacc,Specific] codeine [CODEINE] Allergy Intermediate NAUSEA & Verified 01/30/21 13:37 VOMITING Sulfa (Sulfonamide Allergy Intermediate Hives Verified 01/30/21 13:37 Antibiotics) amoxicillin [Amoxicillin] Allergy Unknown UNKNOWN Verified 12/20/20 13:28 Penicillins Allergy Unknown UNKNOWN Verified 12/20/20 13:28 Home Medications Medication Instructions Recorded Confirmed Last Taken Type levothyroxine 50 mcg tablet 50 mcg PO DAILY@0630 08/07/20 01/30/21 08/06/20 History Exam Exam Date and Time: February 01, 2021 1347 Height,Weight and Vital Signs: Height 5 ft 2 in Weight 102.058 kg Assessment and Plan Assessment Anesthesia Assessment: Chart Reviewed Documented by User: Karla Chatman MD 02/04/21 12:04 [facility] Past Medical History Medical History (Updated 02/04/21 @ 11:43 by Karla Chatman MD) Depression with anxiety Dysphagia Erosive esophagitis GERD (gastroesophageal reflux disease) Hiatal hernia Hypothyroidism Mild asthma Mild cognitive impairment GILDA (obstructive sleep apnea) Pure hypercholesterolemia Family History Family History Mother Diabetes Hypertension Stroke Father Lung cancer Family history of problems with anesthesia: No Surgical History Surgical History H/O colonoscopy History of benign ovarian tumor History of esophagogastroduodenoscopy (EGD) History of Problems with Anesthesia: Yes (PONV) Social History Social History Household Members: Family Household Members Other:: daughter lives downstairs Housing: House Do you presently have visiting nurse or other home services: No Alcohol intake: current Alcohol intake frequency: does not drink Patient Tobacco Use Status: Tobacco use Unknown Second Hand Smoke Exposure: No Advance Directives: Yes Advance Directives Information Provided: Yes (previously provided) Advance Directives on File: Yes Advance Directives Date on File: 04/03/20 service: No Current occupational status: retired Current occupation: right handed Meds Allergies Allergy/AdvReac Type Severity Reaction Status Date / Time influenza virus vaccine, Allergy Severe SEVERE FLU Verified 12/20/20 13:28 specific SYMPTOMS [Influenza Virus Vacc,Specific] codeine [CODEINE] Allergy Intermediate NAUSEA & Verified 01/30/21 13:37 VOMITING Sulfa (Sulfonamide Allergy Intermediate Hives Verified 01/30/21 13:37 Antibiotics) amoxicillin [Amoxicillin] Allergy Unknown UNKNOWN Verified 12/20/20 13:28 Penicillins Allergy Unknown UNKNOWN Verified 12/20/20 13:28 Home Medications Medication Instructions Recorded Confirmed Last Taken Type levothyroxine 50 mcg tablet 50 mcg PO DAILY@0630 08/07/20 01/30/21 08/06/20 History Exam Height,Weight and Vital Signs: Height 5 ft 2 in Weight 102.058 kg Vital Signs Temp Pulse Resp BP Pulse Ox 02/04/21 11:34 99.8 F 83 20 179/84 H 95 Airway Mallampati Class: III TM Dist: >3cm Neck ROM: Full Loose/Missing/Broken Teeth: Yes (Some missing) Heart: RRR Lungs: CTAB Assessment and Plan Assessment Anesthesia Assessment: Anesthesia Plan Discussed Final Anesthetic Review Family History of Problems with Anesthesia: No History of Problems with Anesthesia: Yes (PONV) NPO: Yes ASA Class: III Final Preanesthetic Review: No Changes in Pt Med Stat, Meds/Allgs Chart Reviewed, Consent Obtained/Reviewed and Anes Risks/Benef Reviewed Patient Risk: Intermediate Procedure Risk: Low Assessment/Block/Sedation in SS: Assess/Block/Sedation-SS Anesthetic Plan Anesthetic Plan: MAC: Disposition: Standard PACU
--- NOTE | 2021-02-04 11:31 | MHC.SHP ---
Pre-Procedural Eval Section A Date of Service: 02/04/21 The patient is an INPATIENT: No The History & Physical has been completed within 30 days and I have reviewed it.: No Section B Chief Complaint: Fu of Gay's, Dysphagia Details of Present Illness: Fu of Gay's, Dysphagia Relevant Family History (Specify if Yes): No Relevant Social History: None Present Medications: see Short Stay Collaborative assessment Medical History: Significant History (Depression with anxiety Dysphagia GERD (gastroesophageal reflux disease) Hiatal hernia Hypothyroidism Mild asthma Mild cognitive impairment GILDA (obstructive sleep apnea) Pure hypercholesterolemia) History of Previous Operations: Relevant previous surgery/procedure and date(s) (H/O colonoscopy History of benign ovarian tumor History of esophagogastroduodenoscopy (EGD)) Allergies: Allergies Allergy/AdvReac Type Severity Reaction Status Date / Time influenza virus vaccine, Allergy Severe SEVERE FLU Verified 12/20/20 13:28 specific SYMPTOMS [Influenza Virus Vacc,Specific] codeine [CODEINE] Allergy Intermediate NAUSEA & Verified 01/30/21 13:37 VOMITING Sulfa (Sulfonamide Allergy Intermediate Hives Verified 01/30/21 13:37 Antibiotics) amoxicillin [Amoxicillin] Allergy Unknown UNKNOWN Verified 12/20/20 13:28 Penicillins Allergy Unknown UNKNOWN Verified 12/20/20 13:28 Review of Systems Sugical H&P ROS: Negative: Constitution, Cardiovascular and Respiratory and Yes, Specify: Gastrointestinal (GERD and dysphagia) Exam Surgical H&P Exam: Normal: Heart, Normal: Lungs and Normal: Abdomen Plan Diagnosis/Plan: Unchanged I have reviewed the history and physical and performed a pertinent physical examination on my patient. No changes have occurred unless specified.
[2021-02-04 11:34] VITALS: BP 179/84; PULSE 83; RESP 20; TEMP 37.7; O2SAT 95
--- NOTE | 2021-02-04 11:39 | P.BOP_ITS ---
Brief Operative Note Date of Service: 02/04/21 Pre-op diagnosis: GERD, dysphagia, abnormal barium swallow Post-op diagnosis: other (GERD, dysphagia, Gay's esophagus) Procedure: FLEXIBLE TRANSORAL UPPER GASTROINTESTINAL ENDOSCOPY WITH BIOPSIES AND ESOPHAGEAL BALLOON DILATION Consent: Indications for the procedure and potential complications of bleeding, perforation, reaction to medications and missed diagnosis were discussed with the patient and informed consent was obtained. Instrument: Olympus GIF H 190 mid size upper endoscope Monitoring: Vital signs and clinical assessment, continuous EKG monitoring, Pulse oximetry, Carbon Dioxide monitoring and blood pressure monitoring were done throughout the procedure. Procedure: The patient was placed in the left lateral decubitis position and pre-procedure medications were administered and a bite block was placed. The endoscope was inserted into the mouth and advanced under direct vision to the third part of duodenum. A careful inspection was made as the upper endoscope was withdrawn including a retroflexed examination of the proximal stomach; Findings and interventions are described below. Findings: Larynx: Normal Esophagus: Tortuous esophagus with increased tertiary contractions.?? GE junction at 35 cms, hiatal hernia 35 to 38 cms.? A non-obstructing Schatzki's ring at GE junction. Esophagitis seen on last EGD healed completely. Two 1 cms tongues of Gay's - biopsied? Balloon dilation was performed with an 19 and 20 mm CRE balloon x 60 seconds at each level. Stomach: Mild gastric erythema. Biopsies were obtained during last EGD were negative for H Pylori. Grade 3 flap valve on retroflexed examination of the cardia. Duodenum: Normal bulb and descending duodenum Intervention: Biopsies and esophageal balloon dilation as noted above Impression and Post Procedure Diagnosis: Endoscopy Findings: ESOPHAGUS: Tortuous esophagus with increased tertiary contractions.?? GE junction at 35 cms, hiatal hernia 35 to 38 cms.? A non-obstructing Schatzki's ring at GE junction. Esophagitis seen on last EGD healed completely. Two 1 cms tongues of Gay's - biopsied? Balloon dilation was performed with an 19 and 20 mm CRE balloon x 60 seconds at each level. Plan: Await pathology results. Patient has an appointment on 03/07/21 in the GI Clinic with Dipak Tracey M.D. Repeat EGD in 3 yrs for FU of Gay's Above findings were reviewed with the patient and GERD and Gay's handouts were given in the discharge area Surgeon: Dipak Tracey MD Anesthesia: MAC Was an Water Main Installer Helper used for this Procedure?: Yes Water Main Installer Helper: Di Portillo Estimated blood loss (mL): 0 Pathology: other (A. distal esophagus, R/O Gay's) Condition: stable Disposition: PACU
--- NOTE | 2021-02-04 11:40 | P.OP_ITS ---
Operative Note Operative Note Date of Service: 02/04/21 Narrative: Pre-op diagnosis:?GERD, dysphagia, abnormal barium swallow Post-op diagnosis:?other (GERD, dysphagia, Gay's esophagus) Procedure:? FLEXIBLE TRANSORAL UPPER GASTROINTESTINAL ENDOSCOPY WITH BIOPSIES AND ESOPHAGEAL BALLOON DILATION Consent:?Indications for the procedure and potential complications of bleeding, perforation, reaction to medications and missed diagnosis were discussed with the patient and informed consent was obtained. Instrument:?Olympus GIF H 190 mid size upper endoscope Monitoring: Vital signs and clinical assessment, continuous EKG monitoring, Pulse oximetry, Carbon Dioxide monitoring and blood pressure monitoring were done throughout the procedure. Procedure:?The patient was placed in the left lateral decubitis position and pre-procedure medications were administered and a bite block was placed. The endoscope was inserted into the mouth and advanced under direct vision to the third part of duodenum. A careful inspection was made as the upper endoscope was withdrawn including a retroflexed examination of the proximal stomach; Findings and interventions are described below. Findings: Larynx:? Normal Esophagus:?Tortuous esophagus with increased tertiary contractions.?? GE junction at 35 cms, hiatal hernia 35 to 38 cms.? A non-obstructing Schatzki's ring at GE junction. Esophagitis seen on last EGD healed completely.? Two 1 cms tongues of Gay's - biopsied? Balloon dilation was performed with an 19 and 20 mm CRE balloon x 60 seconds at each level. Stomach:?Mild gastric erythema. Biopsies were obtained during last EGD were negative for H Pylori. Grade 3 flap valve on retroflexed examination of the cardia. Duodenum:?Normal bulb and descending duodenum Intervention:?Biopsies and esophageal balloon dilation as noted above Impression and Post Procedure Diagnosis: Endoscopy Findings: ESOPHAGUS: Tortuous esophagus with increased tertiary contractions.?? GE junction at 35 cms, hiatal hernia 35 to 38 cms.? A non-obstructing Schatzki's ring at GE junction. Esophagitis seen on last EGD healed completely.? Two 1 cms tongues of Gay's - biopsied? Balloon dilation was performed with an 19 and 20 mm CRE balloon x 60 seconds at each level. Plan: Await pathology results.? Patient has an appointment on 03/07/21 in the GI Clinic with Dipak Tracey M.D. Repeat EGD in 3 yrs for FU of Gay's Above findings were reviewed with the patient and GERD and Gay's handouts were given in the discharge area Surgeon:?Dipak Tracey MD Anesthesia:?MAC Was an Otr Owner Operator Truck Driver used for this Procedure?:?Yes Otr Owner Operator Truck Driver:?Di Portillo Estimated blood loss (mL):?0 Pathology:?other (A. distal esophagus, R/O Gay's) Condition:?stable Disposition:?PACU
[2021-02-04 12:13] VITALS: BP 131/78; PULSE 85; RESP 20; TEMP 36.6; O2SAT 95
[2021-02-04 12:28] VITALS: BP 144/52; PULSE 76; RESP 20; TEMP 36.6; O2SAT 95
== END 2021-02-04 14:35 | disposition home or self-care (01) ==
PROVIDERS: PCP Internal Medicine; Visit Provider Internal Medicine Gastroenterology
PROC: 0DJ08ZZ Inspection of Upper Intestinal Tract, Via Natural or Artificial Opening Endoscopic (ICD-10-PCS; CPT 43235; principal; 2021-02-04 12:00)
DX: K22.2 Esophageal obstruction (principal); K22.70 Barrett's esophagus without dysplasia; K44.9 Diaphragmatic hernia without obstruction or gangrene; K21.9 Gastro-esophageal reflux disease without esophagitis; Z79.899 Other long term (current) drug therapy; Z88.2 Allergy status to sulfonamides
CPT/HCPCS: 43249; 43239; 88305; C1726; J2405

== ENCOUNTER → 2021-03-07 08:24 | Outpatient (BNVA) | payer MEDICARE, OTHER, SELFPAY | PROVIDERS: PCP Internal Medicine; Visit Provider Internal Medicine Gastroenterology | CPT/HCPCS: Q3014 ==

== ENCOUNTER → 2021-04-09 08:49 | Outpatient (BNVA) | payer MEDICARE, OTHER, SELFPAY | PROVIDERS: PCP Internal Medicine | DX: Z13.89 Encounter for screening for other disorder (principal) | CPT/HCPCS: Q3014 ==

== ENCOUNTER 2021-07-26 08:16 | Outpatient (REF) | payer MEDICARE, OTHER, SELFPAY ==
--- NOTE | ~2021-07-26 | XR_ITS ---
EXAMINATION: XR SHOULDER, LEFT CLINICAL INFORMATION: Pain. COMPARISON: None. TECHNIQUE: AP external rotation, Grashey, scapular Y, and axillary views of the left shoulder. FINDINGS: There is mild bony demineralization. The glenohumeral joint is intact. There is very mild peripheral osteophyte formation of the glenohumeral joint. The acromioclavicular and coracoclavicular intervals are normal. There is very mild osteoarthritic change of the acromioclavicular joint. The rotator cuff interval is narrowed. No fracture or dislocation is seen. There are no unusual soft tissue calcifications. No foreign body seen. There is no left pneumothorax. XR/XR shoulder LT min 2V IMPRESSION: 1. There is minimal osteoarthritic change of the left glenohumeral joint, and mild osteoarthritic change is seen of the left acromioclavicular joint. 2. No fracture or dislocation is seen. 3. There is narrowing of the rotator cuff interval, raising the possibility of rotator cuff tendinopathy. 4. There is bony demineralization.
[2021-07-26 10:11] LABS: Alanine Aminotransferase 36 U/L (0-31); Albumin Level 4.2 g/dL (3.5-5.0); Alkaline Phosphatase 126 U/L (39-117); Anion Gap 19 (12-20); Aspartate Amino Transferase 28 U/L (5-31); Bilirubin Total 0.4 mg/dL (0.0-1.0); Blood Urea Nitrogen 21 mg/dL (9-16); Calcium 9.4 mg/dL (8.4-10.2); Carbon Dioxide 20 mmol/L (22-29); Chloride 103 mmol/L (96-108); Cholesterol 271 mg/dL; Estimated Glomerular Filt Rate > 60; Glucose Fasting 156 mg/dL (60-99); HDL Cholesterol 38 mg/dL; LDL Cholesterol Calculated 179 mg/dl; Potassium 4.3 mmol/L (3.3-5.1); Sodium 138 mmol/L (135-145); Total Protein 6.9 g/dL (6.5-8.0); Triglycerides 274 mg/dL
[2021-07-26 10:32] LABS: Thyroid Stimulating Hormone 4.16 uIU/mL (0.32-4.0)
== END 2021-07-26 08:17 | disposition home or self-care (01) ==
LOC: HO.XRAY 08:16
PROVIDERS: PCP Internal Medicine; Visit Provider Internal Medicine
DX: M25.512 Pain in left shoulder (principal); N32.81 Overactive bladder; E03.9 Hypothyroidism, unspecified; E66.9 Obesity, unspecified
CPT/HCPCS: 36415; 51798; 73030; 80053; 80061; 84443; 99212

== ENCOUNTER 2021-08-27 15:51 | Inpatient (IN) | payer MEDICARE, OTHER, SELFPAY ==
--- NOTE | ~2021-08-27 | XR_ITS ---
EXAMINATION: XR CHEST CLINICAL INFORMATION: Weakness, Covid positive COMPARISON: 05/11/2007 TECHNIQUE: Frontal view of the chest was obtained. FINDINGS: The heart and pulmonary vessels appear normal. No infiltrates, effusions or lung masses seen. Allowing for differences in technique, there has been no interval change when compared to the prior study XR/XR chest 1V IMPRESSION: No acute intrathoracic disease.
--- NOTE | ~2021-08-27 | CT_ITS ---
EXAMINATION: CTA CHEST PE STUDY CLINICAL INFORMATION: COVID + elevated ddimer COMPARISON: No pertinent prior studies are available for comparison. TECHNIQUE: Prior to contrast administration, noncontrast localization images were obtained. After the administration of 100 mL of Omnipaque nonionic IV contrast, contiguous thin slice helical images were obtained through the thorax. Reformatted MIP images in the coronal and sagittal planes were obtained at the acquisition workstation. This CT examination was performed using dose optimization techniques as appropriate, variously including the following: *Automated exposure control *Adjustment of mA and/or kV according to patient size (this includes techniques or standardized protocols for targeted exams where dose is matched to indication/reason for exam; i.e. extremities or head) *Use of iterative reconstruction technique DLP: 501 mGy-cm. FINDINGS: The bolus timing on this study was acceptable for visualization of the pulmonary arterial tree. There are no intraluminal pulmonary arterial filling defects present to suggest pulmonary embolism. The lungs are clear. No abnormal pulmonary nodules or masses are appreciated. No significant hilar or mediastinal adenopathy. There is no evidence of pleural effusion or pneumothorax. The heart is normal in size. No evidence of ventricular septal bowing or right heart strain. Great vessels are normal. Small hiatal hernia. There is no pericardial effusion or pericardial thickening. Limited evaluation of the upper abdominal viscera is unremarkable. CT/CT angio chest PE protocol IMPRESSION: No central pulmonary emboli. No focal airspace disease. Small hiatal hernia. VTE: Negative
--- NOTE | ~2021-08-27 | XR_ITS ---
EXAMINATION: XR CHEST CLINICAL INFORMATION: Fever. Covid positive. COMPARISON: Chest x-ray 08/27/2021 TECHNIQUE: Frontal portable view of the chest was obtained. 1553 hours FINDINGS: No significant abnormality is noted involving the heart, lungs, mediastinum, bony thorax or soft tissues. XR/XR chest 1V IMPRESSION: Unremarkable examination.
[2021-08-27 16:22] VITALS: BP 146/83; BP 152/98; PULSE 87; PULSE 90; RESP 18; TEMP 37.2; O2SAT 93; O2SAT 96; BMI 42.5
--- NOTE | 2021-08-27 16:22 | ED.WEAKNESS ---
HPI - Weakness General Chief complaint: Weakness Stated complaint: general weakness w/diarreha,+covid today per ems Time Seen by Provider: 08/27/21 16:22 Source: patient Mode of arrival: EMS Limitations: no limitations History of Present Illness HPI Narrative: n/v/d today very weak doesn't feel well, home COVID test + not vaccinated due to allergy to flu shot MD Complaint: generalized weakness and lack of energy Onset (ago): day(s) (1) Duration: constant Location: generalized Severity: severe Quality: dull Relieving factors: rest Exacerbating factors: movement and exertion Context: recent illness Associated symptoms: fever/chills, loss of appetite, nausea/vomiting, myalgias and other (diarrhea) Related Data Home Medications Medication Instructions Recorded Confirmed sertraline 50 mg tablet 50 mg PO DAILY 06/06/21 06/06/21 Previous Rx's Medication Instructions Recorded albuterol sulfate 90 mcg/actuation 2 puff INHALATION Q6H PRN 30 Days 11/27/20 aerosol inhaler #25.5 g CPAP (CPAP Machine/Device) #1 ea 06/06/21 fluticasone propionate 44 1 puff INHALATION BID #31.8 cap 06/11/21 mcg/actuation HFA aerosol inhaler (Flovent HFA) omeprazole 20 mg capsule,delayed 20 mg PO DAILY 90 Days #90 cap 07/06/21 release mirabegron 25 mg tablet,extended 25 mg PO DAILY 90 Days #90 tab 07/22/21 release 24 hr (Myrbetriq) levothyroxine 75 mcg tablet 75 mcg PO DAILY 90 Days #90 tab 08/26/21 Allergies Allergy/AdvReac Type Severity Reaction Status Date / Time influenza virus vaccine, Allergy Severe SEVERE FLU Verified 07/26/21 10:18 specific SYMPTOMS [Influenza Virus Vacc,Specific] codeine [CODEINE] Allergy Intermediate NAUSEA & Verified 07/26/21 10:18 VOMITING Sulfa (Sulfonamide Allergy Intermediate Hives Verified 07/26/21 10:18 Antibiotics) amoxicillin [Amoxicillin] Allergy Unknown UNKNOWN Verified 07/26/21 10:18 Penicillins Allergy Unknown UNKNOWN Verified 07/26/21 10:18 Review of Systems Review of Systems: Constitutional : No Weight loss, No Fever, pos Chills ENT/Mouth : No sore throat, No Rhinorrhea Eyes: No Swelling, No Redness Cardiovascular : No Chest Pain, No SOB, NoEdema Respiratory : No Cough, No Sputum, No Wheezing Gastrointestinal : Positive Nausea, Positive Vomiting, positive Diarrhea, no abdominal Pain, No Hematochezia, No Melena Genitourinary : No Dysuria, No Urinary Frequency, No Hematuria, No Urgency Musculoskeletal : No joint pain, pos Myalgias, No Joint Swelling Skin : No Skin Lesions, No rash Neuro : pos Weakness, No Numbness, No Dizziness, No Headache Psych : No Anxiety/Panic, No Depression Heme/Lymph: No Bruising, No Lymphadenopathy Endocrine : No Polyuria, No Polydipsia All other systems reviewed and are negative. [facility] Past Medical History Attestation statement: The following information was validated with the patient. Medical History Depression with anxiety Dysphagia Erosive esophagitis GERD (gastroesophageal reflux disease) Hiatal hernia Hypothyroidism Left shoulder pain Mild asthma Mild cognitive impairment Mild recurrent major depression Obese GILDA (obstructive sleep apnea) Pure hypercholesterolemia Surgical History H/O colonoscopy History of benign ovarian tumor History of esophagogastroduodenoscopy (EGD) Family History Family History Mother Diabetes Hypertension Stroke Father Lung cancer Social History Social History Household Members: Family Household Members Other:: daughter lives downstairs Housing: House Are you a primary rn progressive care unit to a significant other at home: No Do you presently have visiting nurse or other home services: No Alcohol intake: current Alcohol intake frequency: does not drink Patient Tobacco Use Status: Tobacco use Unknown e-Cigarette/Vaping Use: Never Used Second Hand Smoke Exposure: No Advance Directives: Yes Advance Directives on File: Yes Advance Directives Date on File: 04/03/20 service: No Current occupational status: retired Current occupation: right handed Physical Exam Vital Signs: Vital Signs: Last Vital Signs Temp 99.0 F 08/27/21 16:22 Pulse 87 08/27/21 16:22 Resp 18 08/27/21 16:22 BP 146/83 H 08/27/21 16:22 Pulse Ox 93 08/27/21 16:22 BMI result Body Mass Index 42.5 Appearance: Alert. Oriented X3. No acute distress. Eyes: Pupils equal, round and reactive to light. ENT: Pharynx dry MM Neck: Normal inspection. Neck supple. CVS: Normal heart rate and rhythm. Pulses normal. Respiratory: No respiratory distress. Breath sounds normal. Abdomen: Soft and nontender. Back: covered in brown thick dried stool Skin: Skin warm and dry. Normal skin color. Normal skin turgor. Extremities: No lower extremity edema. No calf ttp Neuro: Oriented X 3. No motor deficit. No sensory deficit. Course Course Course Narrative: 93% on RA CXR no pneumonia CTA ordered elevated ddimer COVID labs LDH and ferritin low 93% on RA, tolerating PO, BP stable feels better, would be a candidate for mAb CTA negative for PE, lungs clear of pneumonia will ambulate and obtain O2 sat - information faxed to francine no diarrhea here, 94% on RA with ambulation in room sat - aware she needs to follow up with mAb and it is an outpatient treatment does not have COVID pneumonia at this time MDM - Weakness MDM Narrative Medical decision making narrative: 75 yo female with hx of GERD, hypothyroidism, asthma, GILDA, colitis here with reportedly not feeling well today with n/v/d myalgias weakness - she notes her COVID test was positive today and she is unvaccinated. At this time she denies CP/SOB. Will obtain labs, COVID panel of labs, IVF x 1, zofran, CXR, possible CT scan if diarrhea persists given hx of colitis. Dispo per results and findings. Lab Data Result diagrams: 08/27/21 17:18 08/27/21 17:18 Labs: Lab Results 08/27/21 08/27/21 08/27/21 Range/Units 17:18 17:18 17:18 WBC 8.7 (4.8-10.8) X10*3/uL RBC 5.40 (4.20-5.50) X10*6/uL Hgb 14.5 (12.0-16.0) g/dl Hct 45.4 (37.0-47.0) % MCV 84.1 (80.0-98.0) fL MCH 26.9 L (27.0-33.0) pg MCHC 31.9 (31.0-35.0) g/dl RDW 13.6 (11.0-16.0) % Plt Count 280 (160-400) X10*3/uL MPV 10.6 (9.4-12.3) fL Immature Gran % (Auto) 0.5 H (0.0-0.4) % Neut % (Auto) 90.6 H (45-73) % Lymph % (Auto) 2.4 L (20-40) % Evangeline % (Auto) 6.0 (2-11) % Eos % (Auto) 0.2 (0-4) % Baso % (Auto) 0.3 (0-2) % Lymph # (Auto) 0.2 L (1.2-4.9) X10*3/uL Evangeline # (Auto) 0.5 (0.1-1.2) X10*3/uL Eos # (Auto) 0.0 (0.0-0.4) X10*3/uL Baso # (Auto) 0.0 (0.0-0.2) X10*3/uL Abs Immat Gran (auto) 0.04 H (0.00-0.03) X10*3/uL Absolute Neuts (auto) 7.9 (2.0-8.3) x10*3/uL Absolute Nucleated RBC 0.000 (0.0-0.012) X10*3/uL Nucleated RBC % (auto) 0.0 (0.0-0.2) /100WBC Smear Tech's Comments VERIFIED PT (9.9-13.0) SEC INR (0.9-1.1) D-Dimer High Sensitivty 956 NG/ML VBG pH (7.32-7.43) VBG pCO2 mmHg VBG pO2 mmHg VBG HCO3 (22-26) mmol/L VBG O2 Saturation % VBG Base Excess mmol/L Sodium 135 (135-145) mmol/L Potassium 4.2 (3.3-5.1) mmol/L Chloride 99 (96-108) mmol/L Carbon Dioxide 24 (22-29) mmol/L Anion Gap 16 (12-20) BUN 16 (9-16) mg/dL Creatinine 0.87 (0.5-1.4) mg/dL Estim Creat Clear Calc 68.2 Estimated GFR > 60 Random Glucose 210 H (60-115) mg/dL Lactic Acid (0.5-2.0) mmol/L Calcium 9.8 (8.4-10.2) mg/dL Magnesium 1.9 (1.6-2.6) mg/dL Ferritin 45 (10-250) ng/mL Total Bilirubin 0.4 (0.0-1.0) mg/dL Direct Bilirubin 0.2 (0.0-0.5) mg/dL AST 23 (5-31) U/L ALT 27 (0-31) U/L Alkaline Phosphatase 126 H (39-117) U/L Lactate Dehydrogenase 174 (122-220) U/L Total Creatine Kinase 57 (26-140) U/L Troponin I High Sens (<3.5-17.0) ng/L C-Reactive Protein 1.63 H (< or = 0.50) mg/dL Total Protein 7.4 (6.5-8.0) g/dL Albumin 4.4 (3.5-5.0) g/dL Lipase 33 (8-78) U/L COVID-19 (ANEL) (Negative) COVID-19 Clin Com 08/27/21 08/27/21 08/27/21 Range/Units 17:18 17:18 17:18 WBC (4.8-10.8) X10*3/uL RBC (4.20-5.50) X10*6/uL Hgb (12.0-16.0) g/dl Hct (37.0-47.0) % MCV (80.0-98.0) fL MCH (27.0-33.0) pg MCHC (31.0-35.0) g/dl RDW (11.0-16.0) % Plt Count (160-400) X10*3/uL MPV (9.4-12.3) fL Immature Gran % (Auto) (0.0-0.4) % Neut % (Auto) (45-73) % Lymph % (Auto) (20-40) % Evangeline % (Auto) (2-11) % Eos % (Auto) (0-4) % Baso % (Auto) (0-2) % Lymph # (Auto) (1.2-4.9) X10*3/uL Evangeline # (Auto) (0.1-1.2) X10*3/uL Eos # (Auto) (0.0-0.4) X10*3/uL Baso # (Auto) (0.0-0.2) X10*3/uL Abs Immat Gran (auto) (0.00-0.03) X10*3/uL Absolute Neuts (auto) (2.0-8.3) x10*3/uL Absolute Nucleated RBC (0.0-0.012) X10*3/uL Nucleated RBC % (auto) (0.0-0.2) /100WBC Smear Tech's Comments PT 12.1 (9.9-13.0) SEC INR 1.1 (0.9-1.1) D-Dimer High Sensitivty NG/ML VBG pH (7.32-7.43) VBG pCO2 mmHg VBG pO2 mmHg VBG HCO3 (22-26) mmol/L VBG O2 Saturation % VBG Base Excess mmol/L Sodium (135-145) mmol/L Potassium (3.3-5.1) mmol/L Chloride (96-108) mmol/L Carbon Dioxide (22-29) mmol/L Anion Gap (12-20) BUN (9-16) mg/dL Creatinine (0.5-1.4) mg/dL Estim Creat Clear Calc Estimated GFR Random Glucose (60-115) mg/dL Lactic Acid 1.1 (0.5-2.0) mmol/L Calcium (8.4-10.2) mg/dL Magnesium (1.6-2.6) mg/dL Ferritin (10-250) ng/mL Total Bilirubin (0.0-1.0) mg/dL Direct Bilirubin (0.0-0.5) mg/dL AST (5-31) U/L ALT (0-31) U/L Alkaline Phosphatase (39-117) U/L Lactate Dehydrogenase (122-220) U/L Total Creatine Kinase (26-140) U/L Troponin I High Sens (<3.5-17.0) ng/L C-Reactive Protein (< or = 0.50) mg/dL Total Protein (6.5-8.0) g/dL Albumin (3.5-5.0) g/dL Lipase (8-78) U/L COVID-19 (ANEL) Positive A (Negative) COVID-19 Clin Com See Note 08/27/21 08/27/21 Range/Units 17:18 17:21 WBC (4.8-10.8) X10*3/uL RBC (4.20-5.50) X10*6/uL Hgb (12.0-16.0) g/dl Hct (37.0-47.0) % MCV (80.0-98.0) fL MCH (27.0-33.0) pg MCHC (31.0-35.0) g/dl RDW (11.0-16.0) % Plt Count (160-400) X10*3/uL MPV (9.4-12.3) fL Immature Gran % (Auto) (0.0-0.4) % Neut % (Auto) (45-73) % Lymph % (Auto) (20-40) % Evangeline % (Auto) (2-11) % Eos % (Auto) (0-4) % Baso % (Auto) (0-2) % Lymph # (Auto) (1.2-4.9) X10*3/uL Evangeline # (Auto) (0.1-1.2) X10*3/uL Eos # (Auto) (0.0-0.4) X10*3/uL Baso # (Auto) (0.0-0.2) X10*3/uL Abs Immat Gran (auto) (0.00-0.03) X10*3/uL Absolute Neuts (auto) (2.0-8.3) x10*3/uL Absolute Nucleated RBC (0.0-0.012) X10*3/uL Nucleated RBC % (auto) (0.0-0.2) /100WBC Smear Tech's Comments PT (9.9-13.0) SEC INR (0.9-1.1) D-Dimer High Sensitivty NG/ML VBG pH 7.40 (7.32-7.43) VBG pCO2 36 mmHg VBG pO2 49 mmHg VBG HCO3 22 (22-26) mmol/L VBG O2 Saturation 77.0 % VBG Base Excess -1.6 mmol/L Sodium (135-145) mmol/L Potassium (3.3-5.1) mmol/L Chloride (96-108) mmol/L Carbon Dioxide (22-29) mmol/L Anion Gap (12-20) BUN (9-16) mg/dL Creatinine (0.5-1.4) mg/dL Estim Creat Clear Calc Estimated GFR Random Glucose (60-115) mg/dL Lactic Acid (0.5-2.0) mmol/L Calcium (8.4-10.2) mg/dL Magnesium (1.6-2.6) mg/dL Ferritin (10-250) ng/mL Total Bilirubin (0.0-1.0) mg/dL Direct Bilirubin (0.0-0.5) mg/dL AST (5-31) U/L ALT (0-31) U/L Alkaline Phosphatase (39-117) U/L Lactate Dehydrogenase (122-220) U/L Total Creatine Kinase (26-140) U/L Troponin I High Sens 5.3 (<3.5-17.0) ng/L C-Reactive Protein (< or = 0.50) mg/dL Total Protein (6.5-8.0) g/dL Albumin (3.5-5.0) g/dL Lipase (8-78) U/L COVID-19 (ANEL) (Negative) COVID-19 Clin Com ECG Data Attestation: I personally reviewed and interpreted this ECG as follows: ECG interpretation date: 08/27/21 ECG interpretation time: 17:29 Interpretation: Rate: 84 Rhythm: NSR [place]: normal Normal P waves. Normal ISRRA[place]. Normal QRS complex. ST T wave : normal no MARIUSZ qTC: normal prior studies: no acute ischemia The study has been interpreted contemporaneously by me. Discharge Plan Discharge Clinical Impression: Diarrhea, COVID-19 Patient Disposition: Home, Self-Care Instructions: COVID-19 (Coronavirus Disease 2019) (ED), Acute Diarrhea (ED) Additional Instructions: return to ED for any worsening symptoms or concerns you do not have COVID pneumonia. your walking O2 sats were 94%. you do not have a blood clot in your lungs. you were referred to [facility] for monoclonal antibody treatment. they should be calling you within 24 to 48 hours. this is an outpatient treatment for those who are high risk. Please go to this appointment when offered. Return to the emergency room if you feel short of breath, weaker, if you cannot walk to your bathroom because you are so short of breath wear a mask and quarantine. Prescriptions: No Action albuterol sulfate 90 mcg/actuation HFA aerosol inhaler 2 puff inhalation Q6H PRN (Reason: bronchospasm) 30 Days Qty: 25.5 4RF Flovent HFA 44 mcg/actuation HFA aerosol inhaler 1 puff inhalation BID Qty: 31.8 1RF omeprazole 20 mg capsule,delayed release(DR/EC) 20 mg PO DAILY 90 Days Qty: 90 3RF Myrbetriq 25 mg tablet extended release 24 hr 25 mg PO DAILY 90 Days Qty: 90 1RF levothyroxine 75 mcg tablet 75 mcg PO DAILY 90 Days Qty: 90 1RF sertraline 50 mg tablet 50 mg PO DAILY 0RF (DME) CPAP Machine/Device Device See Rx Instructions .ROUTE .MEDSUPPLY Qty: 1 0RF Rx Instructions: autoPAP 5-20 cmH2O
--- NOTE | 2021-08-27 16:29 | ECG_ITS ---
Test Reason : WEAKNESS Blood Pressure : / mmHG Vent. Rate : 084 BPM Atrial Rate : 084 BPM P-R Int : 146 ms QRS Dur : 086 ms QT Int : 384 ms P-R-T Axes : 037 051 050 degrees QTc Int : 453 ms Normal sinus rhythm Normal ECG When compared with ECG of 20-JAN-2020 14:09, Vent. rate has increased BY 28 BPM Referred By: Kathleen Mckay Electronically Signed By:ASIM KIMBALL MD
[2021-08-27] MEDS: 0.9 % Sodium Chloride 1,000 ML 999 ML IV (17:21)
[2021-08-27] MEDS: ondansetron HCL 4 MG/2 ML VIAL IVPUSH (17:21)
[2021-08-27 17:27] LABS: Venous Blood Gas Refer to POC result
[2021-08-27 17:28] LABS: VBG Base Excess -1.6 mmol/L; VBG HCO3 22 mmol/L (22-26); VBG pCO2 36 mmHg; VBG pO2 49 mmHg
[2021-08-27 17:32] LABS: Basophils Percent Auto 0.3 % (0-2); Eosinophils Percent Auto 0.2 % (0-4); Hematocrit 45.4 % (37.0-47.0); Hemoglobin 14.5 g/dl (12.0-16.0); Imm Gran Abs Auto 0.04 X10*3/uL (0.00-0.03); Imm Gran Pct Auto 0.5 % (0.0-0.4); Lymphocytes Absolute Auto 0.2 X10*3/uL (1.2-4.9); Lymphocytes Percent Auto 2.4 % (20-40); MANUAL DIFF FLAG SCAN; Mean Corpuscular HGB Conc 31.9 g/dl (31.0-35.0); Mean Corpuscular Hemoglobin 26.9 pg (27.0-33.0); Mean Corpuscular Volume 84.1 fL (80.0-98.0); Mean Platelet Volume 10.6 fL (9.4-12.3); Monocytes Absolute Auto 0.5 X10*3/uL (0.1-1.2); Neutrophils Absolute Auto 7.9 x10*3/uL (2.0-8.3); Neutrophils Percent Auto 90.6 % (45-73); Platelet Count 280 X10*3/uL (160-400); Red Cell Distribution Width 13.6 % (11.0-16.0); SCAN SMEAR FLAG 1; White Blood Count 8.7 X10*3/uL (4.8-10.8)
--- NOTE | 2021-08-27 17:33 | PC.NURSE ---
Pt comes in from home via EMS sent in by daughter for complaints of N/V/D, COVID + and weakness x 1 day. Pt is A&OX4, found to be covered in urine and feces, pt states she feels too weak to get out of bed at this time. No signs of vomiting during assessment. Pt is NSR, LCA, abd round and large, non tender BS+x4, IV established, medicated as per MAR, call ruiz within reach. Will continue to monitor.
[2021-08-27 17:38] LABS: Lactic Acid 1.1 mmol/L (0.5-2.0)
[2021-08-27 17:44] LABS: INTERNATIONAL NORM RATIO 1.1 (0.9-1.1); Prothrombin Time 12.1 SEC (9.9-13.0)
[2021-08-27 17:45] LABS: Alanine Aminotransferase 27 U/L (0-31); Albumin Level 4.4 g/dL (3.5-5.0); Alkaline Phosphatase 126 U/L (39-117); Anion Gap 16 (12-20); Aspartate Amino Transferase 23 U/L (5-31); Bilirubin Direct 0.2 mg/dL (0.0-0.5); Bilirubin Total 0.4 mg/dL (0.0-1.0); Blood Urea Nitrogen 16 mg/dL (9-16); C Reactive Protein 1.63 mg/dL (< or = 0.50); Calcium 9.8 mg/dL (8.4-10.2); Carbon Dioxide 24 mmol/L (22-29); Chloride 99 mmol/L (96-108); Creatinine Clr Calc Pharmacy 68.2; Estimated Glomerular Filt Rate > 60; Glucose Random 210 mg/dL (60-115); Lipase 33 U/L (8-78); Magnesium 1.9 mg/dL (1.6-2.6); Potassium 4.2 mmol/L (3.3-5.1); Sodium 135 mmol/L (135-145); Total Protein 7.4 g/dL (6.5-8.0)
[2021-08-27 17:47] LABS: D Dimer High Sensitivity 956 NG/ML
[2021-08-27 17:48] LABS: Troponin-I High Sensitivity 5.3 ng/L (<3.5-17.0)
[2021-08-27 17:55] LABS: COVID-19 Test Positive (Negative); IDNOW Serial# 16C4AD1C; Lactate Dehydrogenase 174 U/L (122-220)
[2021-08-27 17:57] LABS: SLIDE REVIEW VERIFIED
[2021-08-27 18:02] LABS: Ferritin 45 ng/mL (10-250)
[2021-08-27] MEDS: iohexoL 350 MG/ML 100 ML INFUS..BTL IV (19:18)
[2021-08-27] MEDS: Acetaminophen 325 MG TABLET 650 MG PO (20:56)
--- NOTE | 2021-08-27 21:20 | PC.NURSE ---
Salvatore GONZALEZ called pt's family to come pick her up, but they did not answer their phone. Salvatore GONZALEZ needs to talk with rn discharge and/or case management to try and find a way to get pt home.
--- NOTE | 2021-08-27 21:51 | MHC.CM.ED ---
Per RN, family contacted for Pt discharge home. Family also has covid and cannot care for pt at home. States pt could not get OOB and patient was covered in diarrhea/urine. Will obtain a PT evaluation. CM will see patient. Pt to stay overnight, as safe discharge cannot occur tonight. CM to follow for d/c needs.
[2021-08-27 21:56] VITALS: BP 142/63; PULSE 83; RESP 16; TEMP 37.6; O2SAT 93
--- NOTE | 2021-08-27 21:59 | PC.NURSE ---
Pt's family was reached by case managaement. Pt will be staying the night in the ER until daughter who is also struggling with Covid, can pick her up in the morning.
--- NOTE | 2021-08-27 22:30 | MHC.CM.ED ---
CM met with patient. Pt states she has memory issues and is not sure why she is here. Thinks her daughter wants to get rid of her. Doesn't remember not being able to get OOB today or being ill. Concerned that she didn't get dinner yet. States she uses a walker, lives on 2nd floor and her daughter lives on the first floor. States she has a friend to helps her, shops for her and helps her shower. States she doesn't cook, but uses the microwave. States she has home PT and has frozen shoulder blades. Pt is not vaccinated and tells CM she was very allergic to the flu shot and her doctor told her not to get vaccinated. CM explained that she would have a PT evaluation in the morning. Pt is agreeable, but wants to go home. Explained to patient that CM would speak with her in the morning after the evaluation and we would see if she could safely go home. CM spoke with pt daughter/HCP Jessy Hunt, who tells CM she is an elder workers compensation attorney. Jessy also has Covid. Per Jessy, she has family and friend help at home, as her mother is not comfortable to many people. She also has a geriatric quality review trainer, who has been working with her mother regarding mobility. Jessy tells CM her mother has poor endurance and when she is well, she can care for herself with help. Jessy tells CM the confusion is from her depression and anxiety and that she has not been diagnosed with dementia. Jessy tells CM that her mother could not get OOB today, and she could not lift her. States she was covered in stool/urine and vomit. She also complained about a headache and being dizzy. Jessy feels her mother needs PT and tells CM that her mother's PCP ordered home PT for her today, because of her shoulder pain. No agency has contacted Jessy yet. Jessy is agreeable to PT evaluation and possible STR, although she is aware that being covid positive limits the facilities that will accept her. Jessy tells YANICK that her mother has been to [facility] before. Will place referrals locally. D/C plan: STR pending PT evaluation.
--- NOTE | 2021-08-27 23:51 | PC.NURSE ---
Placed pt on 2L NC for SpO2 OF 88
[2021-08-28] VITALS (11 sets, daily range): BP systolic 120–145; BP diastolic 63–95; PULSE 50–124; RESP 17–22; TEMP 36.4–37.1; O2SAT 92–98
--- NOTE | 2021-08-28 03:44 | PC.NURSE ---
At 0330 put bedpan for patient. When done took bedpan out wiped patient with warm wash cloth. Changed bed sheet and patients gown because patient was wet. Gave patient two warm blankets. Moved patients belongings near for close reach, water and call ruiz.
--- NOTE | 2021-08-28 08:51 | MHC.CM.ED ---
Addendum entered by Jennie Gilbert 08/28/21 11:11: Referral broadcasted within 50 miles of patient's home, including [place]. [facility] [place], [place] would be able to offer a bed. Received notificatoin that patient will be admitted for hypoxial. [facility] and [facility] have been asked to follow for d/c needs. Original Note: Patient remains in the ER. Physical therapy eval completed. Short term rehab is recommended. [place] is no longer accepting positive Covid patients. Waiting to hear from [facility]. Continue to monitor for d/c needs.
[2021-08-28] MEDS: dexAMETHasone sod phosphate 4 MG/ML VIAL 6 MG IVPUSH (08:58)
--- NOTE | 2021-08-28 09:38 | P.HPHOSP_ITS ---
History of Present Illness Date of Service: 08/28/21 Chief Complaint: weakness, vomiting This is a 75 year old F with a PMH of asthma, anxiety/depression, GERD and a recent hospitalization from 08/07 to 08/10 where she was treated with colitis. She presented to [facility] ED on 08/27/21 after she was found by her daughter covered in vomitus and stool. The patient is a vague historian and hence, the history is obtained from the patient's daughter (and healthcare proxy -- Jessy). Jessy (who reports that she is herself COVID+) states that about 5 days prior to arrival, she noted that her mother was becoming increasingly confused. The next day, she noticed that her mother was not eating and drinking per usual and so she tested her for COVID which came back negative. The following day (Thursday08/26/21), she found her mother covered in vomit / stool and was unable to get her up. She tested her again and was found to be covid positive and hence for the ED visit. The patient arrived to the ED on 08/27 and her work up was positive for COVID. CT imaging did not show any pneumonia. She remained normo-oxic but weak. The plan was for PT evaluation in the AM for disposition, however, the patient became hypoxic over night, dipping down to the mid 80s with minimal exertion. She was placed on 1-2L NC and admission was requested. The patient is unvaccinated for COVID due to a prior allergic reaction to the flu vaccine. The patient is seen and examined this AM in the Ed, around 845-9am. She reports no complaints other than being hungry. She knows shes in the hospital but tells me that she has not been feeling unwell and does not know why her daughter sent her here. Per conversation with daughter, this confusion is not the patient's baseline. She states that patient has completed multiple neuropsychiatric evaluations and has been diagnosed with depression/anxiety and not dementia. Review of Systems Review of Systems: negative except HPI [facility] Medical History Depression with anxiety Dysphagia Erosive esophagitis GERD (gastroesophageal reflux disease) Hiatal hernia Hypothyroidism Left shoulder pain Mild asthma Mild cognitive impairment Mild recurrent major depression Obese GILDA (obstructive sleep apnea) Pure hypercholesterolemia Family History Mother Diabetes Hypertension Stroke Father Lung cancer Surgical History H/O colonoscopy History of benign ovarian tumor History of esophagogastroduodenoscopy (EGD) Social History Household Members: Family Household Members Other:: daughter lives downstairs Housing: House Are you a primary child care center administrator to a significant other at home: No Do you presently have visiting nurse or other home services: No Alcohol intake: current Alcohol intake frequency: does not drink Patient Tobacco Use Status: Tobacco use Unknown e-Cigarette/Vaping Use: Never Used Second Hand Smoke Exposure: No Advance Directives: Yes Advance Directives on File: Yes Advance Directives Date on File: 04/03/20 service: No Current occupational status: retired Current occupation: right handed Meds Allergies Allergy/AdvReac Type Severity Reaction Status Date / Time influenza virus vaccine, Allergy Severe SEVERE FLU Verified 07/26/21 10:18 specific SYMPTOMS [Influenza Virus Vacc,Specific] codeine [CODEINE] Allergy Intermediate NAUSEA & Verified 07/26/21 10:18 VOMITING Sulfa (Sulfonamide Allergy Intermediate Hives Verified 07/26/21 10:18 Antibiotics) amoxicillin [Amoxicillin] Allergy Unknown UNKNOWN Verified 07/26/21 10:18 Penicillins Allergy Unknown UNKNOWN Verified 07/26/21 10:18 Active Medications: Current Medications Acetaminophen (Acetaminophen 325 Mg Tablet) 650 mg PO Q6H PRN PRN Reason: Pain, Mild (Pain Scale 1-3) Dexamethasone Sodium Phosphate (Dexamethasone Sod Phosphate 4 Mg/Ml Vial) 6 mg IVPUSH DAILY [facility] Stop: 09/06/21 09:01 Last Admin: 08/28/21 08:58 Dose: 6 mg Documented by: Enoxaparin Sodium (Enoxaparin Sodium 40 Mg/0.4 Ml Syringe) 40 mg SUBCUT Q24H [facility] Pharmacy Consult (Consult Rx Perform Med Rec) 1 each MISCELLANE ONCE PRN PRN Reason: Consult order Sodium Chloride (0.9 % Sodium Chloride Flush 3 Ml Syringe) 3 ml IVFLUSH QSHIFT [facility] Home Medications Medication Instructions Recorded Confirmed Last Taken Type sertraline 50 mg tablet 50 mg PO DAILY 06/06/21 06/06/21 Unknown History levothyroxine 75 mcg tablet 75 mcg PO DAILY@0630 08/28/21 08/28/21 Unknown History Physical Exam Vital Signs and Narrative: Vital Signs: Last Vital Signs Temp 98.2 F 08/28/21 08:19 Pulse 73 08/28/21 08:19 Resp 21 H 08/28/21 03:51 BP 125/63 08/28/21 08:19 Pulse Ox 93 08/28/21 08:19 BMI result Body Mass Index 42.5 Const: Other: Constitutional - Awake and Alert, No apparent distress Eyes - PERRLA, EOMI Cardiovascular - S1S2, RRR, No edema Respiratory - distant air sounds Gastrointestinal - NT / ND; +BS; No rebound or guarding - No CVA tenderness Extremities - no calf tenderness bilaterally, no swelling Musculoskeletal - Normal inspection, normal ROM Skin - Warm/Dry Neurological - Oriented to place but not time and situation Psychological - Appropriate affect Results Labs CBC and Chem 7: 08/27/21 17:18 08/27/21 17:18 Labs: Laboratory Results - last 24 hr 08/27/21 08/27/21 08/27/21 17:18 17:18 17:18 MCV 84.1 MCH 26.9 L MCHC 31.9 RDW 13.6 Plt Count 280 MPV 10.6 Immature Gran % (Auto) 0.5 H Neut % (Auto) 90.6 H Lymph % (Auto) 2.4 L [place] % (Auto) 6.0 Eos % (Auto) 0.2 Baso % (Auto) 0.3 Lymph # (Auto) 0.2 L [place] # (Auto) 0.5 Eos # (Auto) 0.0 Baso # (Auto) 0.0 Abs Immat Gran (auto) 0.04 H Absolute Neuts (auto) 7.9 Absolute Nucleated RBC 0.000 Nucleated RBC % (auto) 0.0 Smear Tech's Comments VERIFIED PT INR D-Dimer High Sensitivty 956 VBG pH VBG pCO2 VBG pO2 VBG HCO3 VBG O2 Saturation VBG Base Excess Anion Gap 16 Estim Creat Clear Calc 68.2 Estimated GFR > 60 Random Glucose 210 H Lactic Acid Calcium 9.8 Magnesium 1.9 Ferritin 45 Total Bilirubin 0.4 Direct Bilirubin 0.2 AST 23 ALT 27 Alkaline Phosphatase 126 H Lactate Dehydrogenase 174 Total Creatine Kinase 57 Troponin I High Sens C-Reactive Protein 1.63 H Total Protein 7.4 Albumin 4.4 Lipase 33 COVID-19 (ANEL) COVID-19 Clin Com 08/27/21 08/27/21 08/27/21 17:18 17:18 17:18 MCV MCH MCHC RDW Plt Count MPV Immature Gran % (Auto) Neut % (Auto) Lymph % (Auto) [place]ven % (Auto) Eos % (Auto) Baso % (Auto) Lymph # (Auto) [place] # (Auto) Eos # (Auto) Baso # (Auto) Abs Immat Gran (auto) Absolute Neuts (auto) Absolute Nucleated RBC Nucleated RBC % (auto) Smear Tech's Comments PT 12.1 INR 1.1 D-Dimer High Sensitivty VBG pH VBG pCO2 VBG pO2 VBG HCO3 VBG O2 Saturation VBG Base Excess Anion Gap Estim Creat Clear Calc Estimated GFR Random Glucose Lactic Acid 1.1 Calcium Magnesium Ferritin Total Bilirubin Direct Bilirubin AST ALT Alkaline Phosphatase Lactate Dehydrogenase Total Creatine Kinase Troponin I High Sens C-Reactive Protein Total Protein Albumin Lipase COVID-19 (ANEL) Positive A [facility] Com See Note 08/27/21 08/27/21 17:18 17:21 MCV MCH MCHC RDW Plt Count MPV Immature Gran % (Auto) Neut % (Auto) Lymph % (Auto) [place]ven % (Auto) Eos % (Auto) Baso % (Auto) Lymph # (Auto) [place] # (Auto) Eos # (Auto) Baso # (Auto) Abs Immat Gran (auto) Absolute Neuts (auto) Absolute Nucleated RBC Nucleated RBC % (auto) Smear Tech's Comments PT INR D-Dimer High Sensitivty VBG pH 7.40 VBG pCO2 36 VBG pO2 49 VBG HCO3 22 VBG O2 Saturation 77.0 VBG Base Excess -1.6 Anion Gap Estim Creat Clear Calc Estimated GFR Random Glucose Lactic Acid Calcium Magnesium Ferritin Total Bilirubin Direct Bilirubin AST ALT Alkaline Phosphatase Lactate Dehydrogenase Total Creatine Kinase Troponin I High Sens 5.3 C-Reactive Protein Total Protein Albumin Lipase COVID-19 (ANEL) [facility] Radiologist's Impressions: Impressions Chest X-Ray 08/27/21 16:50 IMPRESSION: No acute intrathoracic disease. Chest CTA 08/27/21 19:22 IMPRESSION: No central pulmonary emboli. No focal airspace disease. Small hiatal hernia. VTE: Negative Assessment and Plan (1) COVID-19: Status: Acute Plan This is a 75 yo F with a PMH of asthma, anxiety/depression, unvaccinated for COVID 19 who presents to the hospital after her daughter found her in vomitus + stool. She is covid positive and after initially being normo-oxic, she has gone to develop hypoxia and now will be admitted for further treatment. 1. Acute Respiratory Failure with hypoxia CT scan without evidence of pneumonia continue 1-2L NC with goal >90% 2. COVID 19 no evidence of pneumonia on CT imaging, but she does have hypoxia given risk factors of age + obesity + asthma + being unvaccinated + hypoxia -- will commence decadron + remdesivir; ID input 3. Chronic Asthma continue her inhalers once med rec completed 4. Toxic/Metabolic encephalopathy due to COVID should improve 5. GERD PPI 6. Anxiety / Depression continue baseline meds Full Code DVT pptx, Lovenox HCP -- Daughter Jessy In light of the patients hypoxia + covid positive (with multiple risk factors for progression to severe disease), I anticipate a medically necessary inpatient hospitalization which is likely to span at least 2 midnights for treatment and monitoring of response to the previously mentioned conditions. This cannot be completed in a less acute setting. Quality Stroke Does the patient have a stroke diagnosis?: No VTE Prior VTE?: No VTE Risk Level:: Medical - moderate - high VTE Device Contraindication: Treatment Not Indicated VTE Drug Contraindication: N/A - Med Ordered
--- NOTE | 2021-08-28 09:51 | PHA.MEDREC ---
Pharmacy Consult ? Medication Reconciliation Pharmacy has completed the medication reconciliation.
[2021-08-28] MEDS: Remdesivir 200 MG in 0.9 % Sodium Chloride 210 ML 105 MG IV (10:47)
[2021-08-28] MEDS: Sertraline HCL 50 MG TABLET PO (10:51)
[2021-08-28] MEDS: Omeprazole 20 MG CAPSULE.DR PO (10:51)
[2021-08-28] MEDS: Enoxaparin Sodium 40 MG/0.4 ML SYRINGE SUBCUT (10:52)
[2021-08-28] MEDS: Albuterol Sulfate 90 MCG 8 GM INHALER 2 PUFF INHALE ×2 (14:37→19:18)
[2021-08-28] MEDS: Mirabegron 25 MG TAB.ER.24H PO (14:45)
[2021-08-28 14:50] LABS: Appearance Urine CLEAR; Color Urine YELLOW; Glucose Urine UA NEG (NEG); Leukocyte Esterase Urine NEG (NEG); Nitrite Urine NEG (NEG); Specific Gravity - Urine >= 1.030 (1.005-1.025); UACC Culture Trigger NO; Urine Blood 1+ (NEG); Urine Ketones NEG (NEG); Urine Protein TRACE MG/DL (NEG-TRACE)
[2021-08-28 15:14] LABS: Bacteria Urine TRACE /LPF; Squamous Epithelial Cell Urine 2+ /LPF; WBC Urine 0-2 /HPF (0-4)
[2021-08-28] MEDS: Nystatin Powder 15 GM BOTTLE 1 APPL TOPICAL (16:14)
[2021-08-28] MEDS: 0.9 % Sodium Chloride Flush 3 ML SYRINGE IVFLUSH (16:14)
--- NOTE | 2021-08-28 23:31 | W.PM.IDCN ---
History of Present Illness Data of Consult Service Date: 08/28/21 Requesting physician: Devon Maldonado Primary Care Provider: Shania Edmonds MD HPI Reason for consult: COVID She presents with fatigue and cough and hypoxia to 86% on admission. She has been on oxygen. She is on 2-3 L oxygen. She has no fever or chills. She has symptoms for one day Review of Systems Review of Systems: Yes all other systems are reviewed and are negative PMFSH Past Medical History Medical History Depression with anxiety Dysphagia Erosive esophagitis GERD (gastroesophageal reflux disease) Hiatal hernia Hypothyroidism Left shoulder pain Mild asthma Mild cognitive impairment Mild recurrent major depression Obese GILDA (obstructive sleep apnea) Pure hypercholesterolemia Family History Family History Mother Diabetes Hypertension Stroke Father Lung cancer Surgical History Surgical History H/O colonoscopy History of benign ovarian tumor History of esophagogastroduodenoscopy (EGD) Social History Social History Household Members: Family Household Members Other:: daughter lives downstairs Housing: House Are you a primary manager intensive care to a significant other at home: No Do you presently have visiting nurse or other home services: Yes Alcohol intake: current Alcohol intake frequency: does not drink Patient Tobacco Use Status: Never used Tobacco e-Cigarette/Vaping Use: Never Used Second Hand Smoke Exposure: No Advance Directives Date on File: 04/03/20 service: No Current occupational status: retired Current occupation: right handed Meds Allergies Allergy/AdvReac Type Severity Reaction Status Date / Time influenza virus vaccine, Allergy Severe SEVERE FLU Verified 07/26/21 10:18 specific SYMPTOMS [Influenza Virus Vacc,Specific] codeine [CODEINE] Allergy Intermediate NAUSEA & Verified 07/26/21 10:18 VOMITING Sulfa (Sulfonamide Allergy Intermediate Hives Verified 07/26/21 10:18 Antibiotics) amoxicillin [Amoxicillin] Allergy Unknown UNKNOWN Verified 07/26/21 10:18 Penicillins Allergy Unknown UNKNOWN Verified 07/26/21 10:18 Active Medications: Current Medications Acetaminophen (Acetaminophen 325 Mg Tablet) 650 mg PO Q6H PRN PRN Reason: Pain, Mild (Pain Scale 1-3) Albuterol Sulfate (Albuterol Sulfate 90 Mcg 8 Gm Inhaler) 2 puff INHALE Q6H PRN PRN Reason: bronchospasm Last Admin: 08/28/21 19:18 Dose: 2 puff Documented by: Dexamethasone Sodium Phosphate (Dexamethasone Sod Phosphate 4 Mg/Ml Vial) 6 mg IVPUSH DAILY [facility] Stop: 09/06/21 09:01 Last Admin: 08/28/21 08:58 Dose: 6 mg Documented by: Enoxaparin Sodium (Enoxaparin Sodium 40 Mg/0.4 Ml Syringe) 40 mg SUBCUT Q24H [facility] Last Admin: 08/28/21 10:52 Dose: 40 mg Documented by: Remdesivir 100 mg/ Sodium (Chloride) 230 mls @ 115 mls/hr IV Q24H [facility] Stop: 09/01/21 12:59 Levothyroxine Sodium (Levothyroxine Sodium 75 Mcg Tablet) 75 mcg PO DAILY@629 [facility] Mirabegron (Mirabegron 25 Mg Tab.Er.24h) 25 mg PO DAILY [facility] Last Admin: 08/28/21 14:45 Dose: 25 mg Documented by: Non-Formulary Medication (Fluticasone Propionate [Flovent Hfa]) 1 puff INHALE BID [facility] Nystatin (Nystatin Powder 15 Gm Bottle) 1 appl TOPICAL BID [facility] Last Admin: 08/28/21 16:14 Dose: 1 appl Documented by: Omeprazole (Omeprazole 20 Mg Capsule.Dr) 20 mg PO DAILY@629 [facility] Last Admin: 08/28/21 10:51 Dose: 20 mg Documented by: Pharmacy Consult (Consult Rx Perform Med Rec) 1 each MISCELLANE ONCE PRN PRN Reason: Consult order Sertraline HCl (Sertraline Hcl 50 Mg Tablet) 50 mg PO DAILY [facility] Last Admin: 08/28/21 10:51 Dose: 50 mg Documented by: Sodium Chloride (0.9 % Sodium Chloride Flush 3 Ml Syringe) 3 ml IVFLUSH QSHIFT [facility] Last Admin: 08/28/21 16:14 Dose: 3 ml Documented by: Home Medications Medication Instructions Recorded Confirmed Last Taken Type sertraline 50 mg tablet 50 mg PO DAILY 06/06/21 08/28/21 Unknown History levothyroxine 75 mcg tablet 75 mcg PO DAILY@0630 08/28/21 08/28/21 Unknown History Physical Exam Vital Signs: Vital Signs: Last Vital Signs Temp 98.2 F 08/28/21 19:59 Pulse 83 08/28/21 19:59 Resp 17 08/28/21 19:59 BP 133/70 08/28/21 19:59 Pulse Ox 95 08/28/21 19:59 BMI result Body Mass Index 42.5 Const: General: cooperative Eyes: General: appearance normal, both eyes and all related structures Pupils: Equal, round and reactive pupils present Resp: Effort & Inspection: normal respiratory effort Cardio: Rate: regular rate Rhythm: regular rhythm GI: Palpation (GI): Soft to palpation and nontender Neuro: Cranial nerves: Yes Equal, round and reactive pupils present Extrem: General: Yes normal to inspection Results Labs CBC & Chem 7: 08/27/21 17:18 08/27/21 17:18 Labs: Urine 08/28/21 Range/Units Unknown Urine Color YELLOW Urine Appearance CLEAR Urine pH 6.0 (5.0-8.0) Ur Specific [place] >= 1.030 H (1.005-1.025) Urine Protein TRACE (NEG-TRACE) MG/DL Urine Glucose (UA) NEG (NEG) MG/DL Microbiology Microbiology Results: Microbiology 08/27/21 17:41 Blood - Venous Blood Culture - Preliminary No growth after 24 hours. 08/27/21 17:18 Blood - Venous Blood Culture - Preliminary No growth after 24 hours. Assessment and Plan (1) Diarrhea: Qualifiers: Diarrhea type: unspecified type Qualified Code(s): R19.7 - Diarrhea, unspecified Status: Acute (2) COVID-19: Status: Acute She has hypoxia and COVID She is not vaccinated since had vomiting and weakness to flu shot she says Plan Oxygen steroids Remdesivir If high flow oxygen baricitinib.
[2021-08-29] VITALS (7 sets, daily range): BP systolic 124–147; BP diastolic 57–80; PULSE 73–88; RESP 18–20; TEMP 36.1–37.2; O2SAT 92–97
[2021-08-29] MEDS: 0.9 % Sodium Chloride Flush 3 ML SYRINGE IVFLUSH ×4 (00:09→21:04)
--- NOTE | 2021-08-29 05:54 | PC.NURSE ---
CARE ASSUMED 23:15..AWAKE..ALERT..ORIENTED X3..RESPIRATIONS EASY WITH O2 2 L/M...NSR..NO ECTOPY..REFUSED AM PRILOSEC AND SYNTHROID...STATED HAD BEEN QUEASY AT ONE POINT OVERNIGHT...DENIED NAUSEA AT PRESENT... I'LL TRY THEM LATER IF I'M STILL OK ..RESTFUL
[2021-08-29 06:48] LABS: Hematocrit 41.5 % (37.0-47.0); Mean Corpuscular HGB Conc 31.3 g/dl (31.0-35.0); Mean Corpuscular Hemoglobin 27.1 pg (27.0-33.0); Mean Corpuscular Volume 86.5 fL (80.0-98.0); Mean Platelet Volume 10.9 fL (9.4-12.3); Platelet Count 250 X10*3/uL (160-400); Red Cell Distribution Width 14.1 % (11.0-16.0); White Blood Count 5.2 X10*3/uL (4.8-10.8)
[2021-08-29 07:33] LABS: Anion Gap 14 (12-20); Blood Urea Nitrogen 27 mg/dL (9-16); Calcium 9.4 mg/dL (8.4-10.2); Carbon Dioxide 24 mmol/L (22-29); Chloride 104 mmol/L (96-108); Creatinine Clr Calc Pharmacy 62.4; Estimated Glomerular Filt Rate 58; Glucose Random 131 mg/dL (60-115); Sodium 138 mmol/L (135-145)
[2021-08-29] MEDS: Enoxaparin Sodium 40 MG/0.4 ML SYRINGE SUBCUT (09:03)
[2021-08-29] MEDS: Omeprazole 20 MG CAPSULE.DR PO (09:04)
[2021-08-29] MEDS: Sertraline HCL 50 MG TABLET PO (09:04)
[2021-08-29] MEDS: Mirabegron 25 MG TAB.ER.24H PO (09:04)
[2021-08-29] MEDS: Acetaminophen 325 MG TABLET 650 MG PO (09:04)
[2021-08-29] MEDS: Levothyroxine Sodium 75 MCG TABLET PO (09:04)
[2021-08-29] MEDS: dexAMETHasone sod phosphate 4 MG/ML VIAL 6 MG IVPUSH (09:05)
[2021-08-29] MEDS: Nystatin Powder 15 GM BOTTLE 1 APPL TOPICAL ×2 (09:13→21:04)
--- NOTE | 2021-08-29 09:14 | P.PNIM_ITS ---
Subjective Subjective Date of Service: 08/29/21 Interval History: seen and examined this AM feels tired and weak but less so compared to yesterday denies abodminal symptoms reports breathing is comfortable Review of Systems negative except HPI Physical Exam Vital Signs: Vital Signs: Last Vital Signs Temp 97.6 F 08/29/21 07:46 Pulse 73 08/29/21 07:46 Resp 20 08/29/21 07:46 BP 147/66 H 08/29/21 07:46 Pulse Ox 95 08/29/21 07:46 BMI result Body Mass Index 42.5 Const: Other: General - no acute distress, appears comfortable Cardiovascular - regular rate and rhythm, S1-S2 Lungs - normal respiratory effort, clear to auscultation bilaterally, no wheezing Abdomen - soft, nontender, no rebound or guarding Extremities - no edema bilaterally Neuro - awake and alert, no focal deficits; oriented to person, place and time Objective Data Active Medications Acetaminophen (Acetaminophen 325 Mg Tablet) 650 mg PO Q6H PRN PRN Reason: Pain, Mild (Pain Scale 1-3) Albuterol Sulfate (Albuterol Sulfate 90 Mcg 8 Gm Inhaler) 2 puff INHALE Q6H PRN PRN Reason: bronchospasm Last Admin: 08/28/21 19:18 Dose: 2 puff Documented by: DANIELLE Dexamethasone Sodium Phosphate (Dexamethasone Sod Phosphate 4 Mg/Ml Vial) 6 mg IVPUSH DAILY [facility] Stop: 09/06/21 09:01 Last Admin: 08/28/21 08:58 Dose: 6 mg Documented by: DAMARI Enoxaparin Sodium (Enoxaparin Sodium 40 Mg/0.4 Ml Syringe) 40 mg SUBCUT Q24H [facility] Last Admin: 08/28/21 10:52 Dose: 40 mg Documented by: DAMARI Remdesivir 100 mg/ Sodium (Chloride) 230 mls @ 115 mls/hr IV Q24H [facility] Stop: 09/01/21 12:59 Levothyroxine Sodium (Levothyroxine Sodium 75 Mcg Tablet) 75 mcg PO DAILY@0630 [facility] Mirabegron (Mirabegron 25 Mg Tab.Er.24h) 25 mg PO DAILY [facility] Last Admin: 08/28/21 14:45 Dose: 25 mg Documented by: SANG Non-Formulary Medication (Fluticasone Propionate [Flovent Hfa]) 1 puff INHALE BID [facility] Nystatin (Nystatin Powder 15 Gm Bottle) 1 appl TOPICAL BID [facility] Last Admin: 08/28/21 16:14 Dose: 1 appl Documented by: CHRISTELLE Omeprazole (Omeprazole 20 Mg Capsule.Dr) 20 mg PO DAILY@0630 [facility] Last Admin: 08/28/21 10:51 Dose: 20 mg Documented by: DAMARI Ondansetron HCl (Ondansetron Hcl 4 Mg/2 Ml Vial) 4 mg IVPUSH Q8H PRN PRN Reason: nausea/vomiting Pharmacy Consult (Consult Rx Perform Med Rec) 1 each MISCELLANE ONCE PRN PRN Reason: Consult order Sertraline HCl (Sertraline Hcl 50 Mg Tablet) 50 mg PO DAILY [facility] Last Admin: 08/28/21 10:51 Dose: 50 mg Documented by: DAMARI Sodium Chloride (0.9 % Sodium Chloride Flush 3 Ml Syringe) 3 ml IVFLUSH QSHIFT [facility] Last Admin: 08/29/21 00:09 Dose: 3 ml Documented by: TAZ Labs CBC & Chem 7: 08/29/21 06:28 08/29/21 06:28 Labs: Laboratory Results - last 24 hr 08/28/21 08/29/21 08/29/21 Unknown 06:28 06:28 MCV 86.5 MCH 27.1 MCHC 31.3 RDW 14.1 Plt Count 250 MPV 10.9 Absolute Nucleated RBC 0.000 Nucleated RBC % (auto) 0.0 Anion Gap 14 Estim Creat Clear Calc 62.4 Estimated GFR 58 Random Glucose 131 H Calcium 9.4 Urine Color YELLOW Urine Appearance CLEAR Urine pH 6.0 Ur Specific [place] >= 1.030 H Urine Protein TRACE Urine Glucose (UA) NEG Urine Ketones NEG Urine Blood 1+ H Urine Nitrite NEG Ur Leukocyte Esterase NEG Urine RBC 1-4 Urine WBC 0-2 Ur Squamous Epith Cells 2+ Urine Bacteria TRACE Microbiology Microbiology Results: Microbiology 08/27/21 17:41 Blood Culture - Preliminary Blood - Venous No growth after 24 hours. 08/27/21 17:18 Blood Culture - Preliminary Blood - Venous No growth after 24 hours. Assessment and Plan (1) Hypoxia: Status: Acute (2) COVID-19: Status: Acute Plan This is a 75 yo F with a PMH of asthma, anxiety/depression, unvaccinated for COVID 19 who presents to the hospital after her daughter found her in vomitus + stool. She is covid positive and after initially being normo-oxic, she has gone to develop hypoxia and now will be admitted for further treatment. 1. Acute Respiratory Failure with hypoxia continue to require 2L by NC wean as tolerated with goal > 90% 2. COVID 19 symptom onset date: 08/24-08/25; home test positive on 08/26 continue decadron - day 06/20; remdesivir 06/15 ID input appreciated check inflammatory biomakers tomorrwo 3. Chronic Asthma continue her inhalers 4. Toxic/Metabolic encephalopathy due to COVID improving today 5. GERD PPI 6. Anxiety / Depression continue baseline meds Full Code DVT pptx, Lovenox HCP -- Daughter Jessy Reason for continued hospitalization: continues to require oxygen + treatment with remdesivir/decadron Quality Stroke Does the patient have a stroke diagnosis?: No VTE Prior VTE?: No VTE Risk Level:: Medical - moderate - high VTE Device Contraindication: Treatment Not Indicated VTE Drug Contraindication: N/A - Med Ordered
[2021-08-29] MEDS: Remdesivir 100 MG in 0.9 % Sodium Chloride 230 ML 115 MG IV (10:11)
[2021-08-29] MEDS: Albuterol Sulfate 90 MCG 8 GM INHALER 2 PUFF INHALE (14:44)
[2021-08-30] MEDS: Acetaminophen 325 MG TABLET 650 MG PO (00:20)
[2021-08-30 03:28] VITALS: BP 131/77; PULSE 74; RESP 18; TEMP 36.3; O2SAT 95
[2021-08-30] MEDS: Omeprazole 20 MG CAPSULE.DR PO (06:18)
[2021-08-30] MEDS: Levothyroxine Sodium 75 MCG TABLET PO (06:18)
[2021-08-30 07:48] VITALS: BP 146/90; PULSE 75; RESP 19; TEMP 36.8; O2SAT 96
[2021-08-30] MEDS: Sertraline HCL 50 MG TABLET PO (09:39)
[2021-08-30] MEDS: dexAMETHasone sod phosphate 4 MG/ML VIAL 6 MG IVPUSH (09:39)
[2021-08-30] MEDS: Mirabegron 25 MG TAB.ER.24H PO (09:42)
[2021-08-30] MEDS: Enoxaparin Sodium 40 MG/0.4 ML SYRINGE SUBCUT (09:42)
[2021-08-30 11:33] VITALS: BP 146/90; BP 147/72; PULSE 75; PULSE 78; RESP 19; TEMP 36.4; O2SAT 91; O2SAT 96
[2021-08-30] MEDS: 0.9 % Sodium Chloride Flush 3 ML SYRINGE IVFLUSH ×2 (11:38→21:05)
[2021-08-30] MEDS: Remdesivir 100 MG in 0.9 % Sodium Chloride 230 ML IV (11:38)
--- NOTE | 2021-08-30 12:54 | HO.PM.IMPN ---
Subjective Subjective Date of Service: 08/30/21 Interval History: pt seen and examined this morning Follow-up for COVID-19 Patient denies shortness of breath at rest, has not been moving around much no significant coughing Review of Systems Review of Systems: Yes all other systems are reviewed and are negative Constitutional Constitutional: Denies chills and Denies fever(s) Cardiovascular Cardiovascular: Denies chest pain, Denies palpitations and Reports dyspnea Respiratory Respiratory: Denies cough and Reports dyspnea Gastrointestinal Gastrointestinal: Denies abdominal pain, Denies nausea and Denies vomiting Endocrine Endocrine: Denies palpitations Physical Exam Vital Signs: Vital Signs: Last Vital Signs Temp 97.6 F 08/30/21 11:33 Pulse 75 08/30/21 11:33 Resp 19 08/30/21 11:33 BP 146/90 H 08/30/21 11:33 Pulse Ox 96 08/30/21 11:33 BMI result Body Mass Index 42.5 Const: General: cooperative, alert and awake Nutritional Appearance: obese Orientation/consciousness: patient oriented x3 Eyes: Pupils: Equal, round and reactive pupils present EOM: EOMs intact bilaterally Resp: Effort & Inspection: normal respiratory effort and able to speak in complete sentences Auscultation: diminished lung sounds Cardio: Rate: regular rate Heart sounds: S1 normal heart sound present and S2 normal heart sound present GI: Inspection: No distended and Yes obesity Palpation (GI): Soft to palpation and nontender Neuro: General: patient oriented x3 Cranial nerves: Yes Equal, round and reactive pupils present Extrem: General: Yes no pedal edema Objective Data Active Medications Acetaminophen (Acetaminophen 325 Mg Tablet) 650 mg PO Q6H PRN PRN Reason: Pain, Mild (Pain Scale 1-3) Last Admin: 08/30/21 00:20 Dose: 650 mg Documented by: ANDREA Albuterol Sulfate (Albuterol Sulfate 90 Mcg 8 Gm Inhaler) 2 puff INHALE Q6H PRN PRN Reason: bronchospasm Last Admin: 08/29/21 14:44 Dose: 2 puff Documented by: RAMESH Dexamethasone Sodium Phosphate (Dexamethasone Sod Phosphate 4 Mg/Ml Vial) 6 mg IVPUSH DAILY [facility] Stop: 09/06/21 09:01 Last Admin: 08/30/21 09:39 Dose: 6 mg Documented by: SARA Enoxaparin Sodium (Enoxaparin Sodium 40 Mg/0.4 Ml Syringe) 40 mg SUBCUT Q24H [facility] Last Admin: 08/30/21 09:42 Dose: 40 mg Documented by: SARA Remdesivir 100 mg/ Sodium (Chloride) 230 mls @ 115 mls/hr IV Q24H [facility] Stop: 09/01/21 10:59 Levothyroxine Sodium (Levothyroxine Sodium 75 Mcg Tablet) 75 mcg PO DAILY@629 [facility] Last Admin: 08/30/21 06:18 Dose: 75 mcg Documented by: ANDREA Mirabegron (Mirabegron 25 Mg Tab.Er.24h) 25 mg PO DAILY [facility] Last Admin: 08/30/21 09:42 Dose: 25 mg Documented by: SARA Non-Formulary Medication (Fluticasone Propionate [Flovent Hfa]) 1 puff INHALE BID [facility] Nystatin (Nystatin Powder 15 Gm Bottle) 1 appl TOPICAL BID [facility] Last Admin: 08/30/21 10:50 Dose: Not Given Documented by: SARA Non-Admin Reason: Patient Refused Omeprazole (Omeprazole 20 Mg Capsule.) 20 mg PO DAILY@629 [facility] Last Admin: 08/30/21 06:18 Dose: 20 mg Documented by: ANDREA Ondansetron HCl (Ondansetron Hcl 4 Mg/2 Ml Vial) 4 mg IVPUSH Q8H PRN PRN Reason: nausea/vomiting Pharmacy Consult (Consult Rx Perform Med Rec) 1 each MISCELLANE ONCE PRN PRN Reason: Consult order Sertraline HCl (Sertraline Hcl 50 Mg Tablet) 50 mg PO DAILY [facility] Last Admin: 08/30/21 09:39 Dose: 50 mg Documented by: SARA Sodium Chloride (0.9 % Sodium Chloride Flush 3 Ml Syringe) 3 ml IVFLUSH QSHIFT [facility] Last Admin: 08/30/21 11:38 Dose: 3 ml Documented by: SARA Labs CBC & Chem 7: 08/29/21 06:28 08/29/21 06:28 Microbiology Microbiology Results: Microbiology 08/27/21 17:41 Blood Culture - Preliminary Blood - Venous No growth after 48 hours. 08/27/21 17:18 Blood Culture - Preliminary Blood - Venous No growth after 48 hours. Assessment and Plan (1) Hypoxia: Status: Acute (2) COVID-19: Status: Acute Plan This is a 75 yo F with a PMH of asthma, anxiety/depression, unvaccinated for COVID 19 who presents to the hospital after her daughter found her in vomitus + stool. She is covid positive and after initially being normo-oxic, she has gone to develop hypoxia and now will be admitted for further treatment. 1. Acute Respiratory Failure with hypoxia currently saturating 90-93 on room air; goal > 90% 2. COVID 19 symptom onset date: 08/24-08/25; home test positive on 08/26 continue decadron - day 07/18; remdesivir 07/13 ID input appreciated 3. Chronic Asthma continue her inhalers 4. Toxic/Metabolic encephalopathy due to COVID seems resolved 5. GERD PPI 6. Anxiety / Depression continue baseline meds 7. hypothyroidism Continue Synthroid morbid obesity BMI 42.5 likely contributing to overall respiratory issues Full Code DVT pptx, Lovenox HCP -- Daughter Jessy attending- Dr. Maldonado Reason for continued hospitalization: continues to require oxygen + treatment with remdesivir/decadron Quality Stroke Does the patient have a stroke diagnosis?: No VTE Prior VTE?: No VTE Risk Level:: Medical - moderate - high VTE Device Contraindication: Treatment Not Indicated VTE Drug Contraindication: N/A - Med Ordered
[2021-08-30 15:24] VITALS: BP 134/79; PULSE 80; RESP 20; TEMP 35.9; O2SAT 96
[2021-08-30 19:14] VITALS: BP 121/73; PULSE 80; RESP 20; TEMP 36.7; O2SAT 93
[2021-08-30] MEDS: Nystatin Powder 15 GM BOTTLE 1 APPL TOPICAL (21:04)
[2021-08-30 23:43] VITALS: BP 130/60; PULSE 81; RESP 16; TEMP 36.8; O2SAT 94
[2021-08-31] MEDS: ondansetron HCL 4 MG/2 ML VIAL IVPUSH (03:15)
[2021-08-31 03:39] VITALS: BP 160/78; PULSE 69; RESP 16; TEMP 37.1; O2SAT 94
[2021-08-31] MEDS: Levothyroxine Sodium 75 MCG TABLET PO (06:00)
[2021-08-31] MEDS: Omeprazole 20 MG CAPSULE.DR PO (06:00)
[2021-08-31 07:29] LABS: C Reactive Protein 1.29 mg/dL (< or = 0.50)
[2021-08-31 08:00] VITALS: BP 119/68; PULSE 80; RESP 20; TEMP 36.4; O2SAT 92
[2021-08-31] MEDS: Enoxaparin Sodium 40 MG/0.4 ML SYRINGE SUBCUT (09:04)
[2021-08-31] MEDS: dexAMETHasone sod phosphate 4 MG/ML VIAL 6 MG IVPUSH (09:05)
[2021-08-31] MEDS: 0.9 % Sodium Chloride Flush 3 ML SYRINGE IVFLUSH ×3 (09:05→19:52)
[2021-08-31] MEDS: Remdesivir 100 MG in 0.9 % Sodium Chloride 230 ML 115 MG IV (09:05)
[2021-08-31] MEDS: Sertraline HCL 50 MG TABLET PO (09:05)
[2021-08-31] MEDS: Mirabegron 25 MG TAB.ER.24H PO (09:05)
--- NOTE | 2021-08-31 10:04 | P.PNIM_ITS ---
Subjective Subjective Date of Service: 08/31/21 <LUCI Ott - Last Filed: 08/31/21 10:17> 08/31/21 <Nishant Jimenes MD - Last Filed: 08/31/21 15:08> Interval History: seen and examined this morning Follow-up for COVID-19 Breathing improving, no significant pain Has not been out of bed, feeling very tired/ generalized weakness <LUCI Ortiz - Last Filed: 08/31/21 10:17> Review of Systems Review of Systems: Yes all other systems are reviewed and are negative <LUCI Ott - Last Filed: 08/31/21 10:17> Constitutional Constitutional: Denies chills, Reports fatigue, Denies fever(s), Reports lethargy, Reports malaise and Reports weakness <LUCI Ott - Last Filed: 08/31/21 10:17> Cardiovascular Cardiovascular: Denies chest pain, Denies palpitations and Reports dyspnea on exertion <LUCI Ott - Last Filed: 08/31/21 10:17> Respiratory Respiratory: Denies cough and Reports dyspnea on exertion <LUCI Ott - Last Filed: 08/31/21 10:17> Gastrointestinal Gastrointestinal: Denies abdominal pain, Denies nausea and Denies vomiting <LUCI Ott - Last Filed: 08/31/21 10:17> Neurologic Neurologic: Reports weakness <LUCI Ott - Last Filed: 08/31/21 10:17> Endocrine Endocrine: Reports fatigue and Denies palpitations <LUCI Ott - Last Filed: 08/31/21 10:17> Physical Exam Vital Signs: Vital Signs: Last Vital Signs Temp 97.5 F 08/31/21 08:00 Pulse 80 08/31/21 08:00 Resp 20 08/31/21 08:00 BP 119/68 08/31/21 08:00 Pulse Ox 92 08/31/21 08:00 BMI result Body Mass Index 42.5 <LUCI Ott Last Filed: 08/31/21 10:17> Const: General: cooperative, alert and awake <LUCI Ott - Last Filed: 08/31/21 10:17> Nutritional Appearance: obese <LUCI Ott - Last Filed: 0 08/31/21 10:17> Orientation/consciousness: patient oriented x3 <LUCI Ott - Last Filed: 08/31/21 10:17> Eyes: Pupils: Equal, round and reactive pupils present <LUCI Ott - Last Filed: 08/31/21 10:17> EOM: EOMs intact bilaterally <LUCI Ott - Last Filed: 08/31/21 10:17> Resp: Effort & Inspection: normal respiratory effort and able to speak in complete sentences <LUCI Ott - Last Filed: 08/31/21 10:17> Auscultation: diminished lung sounds <LUCI Ott - Last Filed: 08/31/21 10:17> Cardio: Rate: regular rate <LUCI Ott - Last Filed: 08/31/21 10:17> Heart sounds: S1 normal heart sound present and S2 normal heart sound present <LUCI Ott - Last Filed: 08/31/21 10:17> GI: Inspection: No distended and Yes obesity <LUCI Ott - Last Filed: 08/31/21 10:17> Palpation (GI): Soft to palpation and nontender <LUCI Ott - Last Filed: 08/31/21 10:17> Neuro: General: patient oriented x3 <LUCI Ott - Last Filed: 08/31/21 10:17> Cranial nerves: Yes Equal, round and reactive pupils present <LUCI Ott - Last Filed: 08/31/21 10:17> Extrem: General: Yes no pedal edema <LUCI Ott - Last Filed: 08/31/21 10:17> Objective Data Active Medications Acetaminophen (Acetaminophen 325 Mg Tablet) 650 mg PO Q6H PRN PRN Reason: Pain, Mild (Pain Scale 1-3) Last Admin: 08/30/21 00:20 Dose: 650 mg Documented by: ANDREA Albuterol Sulfate (Albuterol Sulfate 90 Mcg 8 Gm Inhaler) 2 puff INHALE Q6H PRN PRN Reason: bronchospasm Last Admin: 08/29/21 14:44 Dose: 2 puff Documented by: RAMESH Dexamethasone Sodium Phosphate (Dexamethasone Sod Phosphate 4 Mg/Ml Vial) 6 mg IVPUSH DAILY [facility] Stop: 09/06/21 09:01 Last Admin: 08/31/21 09:05 Dose: 6 mg Documented by: JACKI Enoxaparin Sodium (Enoxaparin Sodium 40 Mg/0.4 Ml Syringe) 40 mg SUBCUT Q24H [facility] Last Admin: 08/31/21 09:04 Dose: 40 mg Documented by: JACKI Remdesivir 100 mg/ Sodium (Chloride) 230 mls @ 115 mls/hr IV Q24H [facility] Stop: 09/01/21 10:59 Last Admin: 08/31/21 09:05 Dose: 115 mls/hr Documented by: JACKI Levothyroxine Sodium (Levothyroxine Sodium 75 Mcg Tablet) 75 mcg PO DAILY@0630 [facility] Last Admin: 08/31/21 06:00 Dose: 75 mcg Documented by: STEPHANIE Mirabegron (Mirabegron 25 Mg Tab.Er.24h) 25 mg PO DAILY [facility] Last Admin: 08/31/21 09:05 Dose: 25 mg Documented by: JACKI Non-Formulary Medication (Fluticasone Propionate [Flovent Hfa]) 1 puff INHALE BID [facility] Nystatin (Nystatin Powder 15 Gm Bottle) 1 appl TOPICAL BID [facility] Last Admin: 08/31/21 09:05 Dose: Not Given Documented by: JACKI Non-Admin Reason: Patient Refused Omeprazole (Omeprazole 20 Mg Capsule.) 20 mg PO DAILY@0630 [facility] Last Admin: 08/31/21 06:00 Dose: 20 mg Documented by: STEPHANIE Ondansetron HCl (Ondansetron Hcl 4 Mg/2 Ml Vial) 4 mg IVPUSH Q8H PRN PRN Reason: nausea/vomiting Last Admin: 08/31/21 03:15 Dose: 4 mg Documented by: STEPHANIE Pharmacy Consult (Consult Rx Perform Med Rec) 1 each MISCELLANE ONCE PRN PRN Reason: Consult order Sertraline HCl (Sertraline Hcl 50 Mg Tablet) 50 mg PO DAILY [facility] Last Admin: 08/31/21 09:05 Dose: 50 mg Documented by: JACKI Sodium Chloride (0.9 % Sodium Chloride Flush 3 Ml Syringe) 3 ml IVFLUSH QSHIFT [facility] Last Admin: 08/31/21 09:05 Dose: 3 ml Documented by: JACKI <LUCI Ott - Last Filed: 08/31/21 10:17> Labs CBC & Chem 7: : 08/29/21 06:28 08/29/21 06:28 <LUCI Ott - Last Filed: 08/31/21 10:17> Labs: Laboratory Results - last 24 hr 08/31/21 06:27 C-Reactive Protein 1.29 H <LUCI Ott - Last Filed: 08/31/21 10:17> Assessment and Plan (1) Hypoxia: Status: Acute <LUCI Ott - Last Filed: 08/31/21 10:17> (2) COVID-19: Status: Acute <LUCI Ott - Last Filed: 08/31/21 10:17> Plan This is a 75 yo F with a PMH of asthma, anxiety/depression, unvaccinated for COVID 19 who presents to the hospital after her daughter found her in vomitus + stool. She is covid positive and after initially being normo-oxic, she has gone to develop hypoxia and now will be admitted for further treatment. Acute Respiratory Failure with hypoxia currently saturating 92% on 1L; goal o2 > 90% still requiring oxygen with movement COVID 19 symptom onset date: 08/24-08/25; home test positive on 08/26 continue decadron - day 08/18; remdesivir 08/13 ID input appreciated crp trending down Chronic Asthma continue her inhalers Toxic/Metabolic encephalopathy due to COVID resolved GERD PPI Anxiety / Depression continue baseline meds hypothyroidism Continue Synthroid morbid obesity BMI 42.5 likely contributing to overall respiratory issues Full Code DVT pptx, Lovenox HCP -- Daughter Jessy attending- Dr. Jimenes Reason for continued hospitalization: continues to require oxygen + treatment with remdesivir/decadron seen by PT - recommending STR, pt wants to resume home <LUCI Ott - Last Filed: 08/31/21 10:17> Quality Stroke Does the patient have a stroke diagnosis?: No <LUCI Ott - Last Filed: 08/31/21 10:17> VTE Prior VTE?: No <LUCI Ott - Last Filed: 08/31/21 10:17> VTE Risk Level:: Medical - moderate - high <LUCI Ott - Last Filed: 08/31/21 10:17> VTE Device Contraindication: Treatment Not Indicated <LUCI Ott - Last Filed: 08/31/21 10:17> VTE Drug Contraindication: N/A - Med Ordered <LUCI Ott - Last Filed: 08/31/21 10:17>
[2021-08-31 11:45] VITALS: BP 129/79; PULSE 86; RESP 20; TEMP 36.7; O2SAT 94
[2021-08-31 15:20] VITALS: BP 129/72; PULSE 76; RESP 20; TEMP 37.3; O2SAT 92
[2021-08-31 19:06] VITALS: BP 148/62; PULSE 75; RESP 20; TEMP 37.3; O2SAT 93
[2021-08-31] MEDS: Acetaminophen 325 MG TABLET 650 MG PO (19:50)
[2021-08-31] MEDS: Nystatin Powder 15 GM BOTTLE 1 APPL TOPICAL (19:54)
[2021-08-31 23:36] VITALS: BP 130/72; PULSE 71; RESP 16; TEMP 36.7; O2SAT 97
[2021-09-01 03:32] VITALS: BP 140/80; PULSE 69; RESP 16; TEMP 36.6; O2SAT 99
[2021-09-01] MEDS: Levothyroxine Sodium 75 MCG TABLET PO (05:34)
[2021-09-01] MEDS: Omeprazole 20 MG CAPSULE.DR PO (05:34)
[2021-09-01 07:19] VITALS: BP 169/80; PULSE 76; RESP 20; TEMP 36.7; O2SAT 96
[2021-09-01] MEDS: Sertraline HCL 50 MG TABLET PO (09:50)
[2021-09-01] MEDS: Enoxaparin Sodium 40 MG/0.4 ML SYRINGE SUBCUT (09:50)
[2021-09-01] MEDS: Mirabegron 25 MG TAB.ER.24H PO (09:50)
[2021-09-01] MEDS: dexAMETHasone sod phosphate 4 MG/ML VIAL 6 MG IVPUSH (09:50)
[2021-09-01] MEDS: 0.9 % Sodium Chloride Flush 3 ML SYRINGE IVFLUSH ×3 (09:50→20:59)
[2021-09-01] MEDS: Remdesivir 100 MG in 0.9 % Sodium Chloride 230 ML 115 MG IV (09:50)
[2021-09-01] MEDS: Nystatin Powder 15 GM BOTTLE 1 APPL TOPICAL ×2 (09:54→20:59)
[2021-09-01 11:09] VITALS: BP 143/74; PULSE 73; RESP 20; TEMP 36.8; O2SAT 93
--- NOTE | 2021-09-01 12:28 | P.PNIM_ITS ---
Subjective Subjective Date of Service: 09/01/21 <LUCI Ott - Last Filed: 09/01/21 12:34> 09/01/21 <Nishant Jimenes MD - Last Filed: 09/01/21 16:03> Interval History: seen and examined this morning follow up for covid 19 feeling better today, still weak, not walking much <LUCI Ott - Last Filed: 09/01/21 12:34> Review of Systems Review of Systems: Yes all other systems are reviewed and are negative <LUCI Ott - Last Filed: 09/01/21 12:34> Constitutional Constitutional: Denies chills and Denies fever(s) <LUCI Ott - Last Filed: 09/01/21 12:34> Cardiovascular Cardiovascular: Denies chest pain, Denies palpitations and Reports dyspnea on exertion <LUCI Ott - Last Filed: 09/01/21 12:34> Respiratory Respiratory: Reports dyspnea on exertion <LUCI Ott - Last Filed: 09/01/21 12:34> Gastrointestinal Gastrointestinal: Denies abdominal pain, Denies nausea and Denies vomiting <LUCI Ott Last Filed: 09/01/21 12:34> Endocrine Endocrine: Denies palpitations <LUCI Ott - Last Filed: 09/01/21 12:34> Physical Exam Vital Signs: Vital Signs: Last Vital Signs Temp 98.3 F 09/01/21 11:09 Pulse 73 09/01/21 11:09 Resp 20 09/01/21 11:09 BP 143/74 H 09/01/21 11:09 Pulse Ox 93 09/01/21 11:09 BMI result Body Mass Index 42.5 <LUCI Ott - Last Filed: 09/01/21 12:34> Const: General: cooperative, alert and awake <LUCI Ott Last Filed: 09/01/21 12:34> Nutritional Appearance: obese <LUCI Ott Last Filed: 09/01/21 12:34> Orientation/consciousness: patient oriented x3 <LUCI Ott - Last Filed: 09/01/21 12:34> Eyes: Pupils: Equal, round and reactive pupils present <LUCI Ott - Last Filed: 09/01/21 12:34> EOM: EOMs intact bilaterally <LUCI Ott - Last Filed: 09/01/21 12:34> Resp: Effort & Inspection: normal respiratory effort and able to speak in complete sentences <LUCI Ott - Last Filed: 09/01/21 12:34> Auscultation: diminished lung sounds <LUCI Ott - Last Filed: 09/01/21 12:34> Cardio: Rate: regular rate <LUCI Ott - Last Filed: 09/01/21 12:34> Heart sounds: S1 normal heart sound present and S2 normal heart sound present <LUCI Ott - Last Filed: 09/01/21 12:34> GI: Inspection: No distended and Yes obesity <LUCI Ott - Last Filed: 09/01/21 12:34> Palpation (GI): Soft to palpation and nontender <LUCI Ott - Last Filed: 09/01/21 12:34> Neuro: General: patient oriented x3 <LUCI Ott - Last Filed: 09/01/21 12:34> Cranial nerves: Yes Equal, round and reactive pupils present <LUCI Ott - Last Filed: 09/01/21 12:34> Extrem: General: Yes no pedal edema <LUCI Ott - Last Filed: 09/01/21 12:34> Objective Data Active Medications Acetaminophen (Acetaminophen 325 Mg Tablet) 650 mg PO Q6H PRN PRN Reason: Pain, Mild (Pain Scale 1-3) Last Admin: 08/31/21 19:50 Dose: 650 mg Documented by: STEPHANIE Albuterol Sulfate (Albuterol Sulfate 90 Mcg 8 Gm Inhaler) 2 puff INHALE Q6H PRN PRN Reason: bronchospasm Last Admin: 08/29/21 14:44 Dose: 2 puff Documented by: RAMESH Dexamethasone Sodium Phosphate (Dexamethasone Sod Phosphate 4 Mg/Ml Vial) 6 mg IVPUSH DAILY [facility] Stop: 09/06/21 09:01 Last Admin: 09/01/21 09:50 Dose: 6 mg Documented by: JACKI Enoxaparin Sodium (Enoxaparin Sodium 40 Mg/0.4 Ml Syringe) 40 mg SUBCUT Q24H [facility] Last Admin: 09/01/21 09:50 Dose: 40 mg Documented by: JACKI Levothyroxine Sodium (Levothyroxine Sodium 75 Mcg Tablet) 75 mcg PO DAILY@629 [facility] Last Admin: 09/01/21 05:34 Dose: 75 mcg Documented by: STEPHANIE Mirabegron (Mirabegron 25 Mg Tab.Er.24h) 25 mg PO DAILY [facility] Last Admin: 09/01/21 09:50 Dose: 25 mg Documented by: JACKI Non-Formulary Medication (Fluticasone Propionate [Flovent Hfa]) 1 puff INHALE BID [facility] Nystatin (Nystatin Powder 15 Gm Bottle) 1 appl TOPICAL BID [facility] Last Admin: 09/01/21 09:54 Dose: 1 appl Documented by: JACKI Omeprazole (Omeprazole 20 Mg Capsule.Dr) 20 mg PO DAILY@629 [facility] Last Admin: 09/01/21 05:34 Dose: 20 mg Documented by: STEPHANIE Ondansetron HCl (Ondansetron Hcl 4 Mg/2 Ml Vial) 4 mg IVPUSH Q8H PRN PRN Reason: nausea/vomiting Last Admin: 08/31/21 03:15 Dose: 4 mg Documented by: STEPHANIE Pharmacy Consult (Consult Rx Perform Med Rec) 1 each MISCELLANE ONCE PRN PRN Reason: Consult order Sertraline HCl (Sertraline Hcl 50 Mg Tablet) 50 mg PO DAILY [facility] Last Admin: 09/01/21 09:50 Dose: 50 mg Documented by: JACKI Sodium Chloride (0.9 % Sodium Chloride Flush 3 Ml Syringe) 3 ml IVFLUSH QSHIFT [facility] Last Admin: 09/01/21 09:50 Dose: 3 ml Documented by: JACKI <LUCI Ott - Last Filed: 09/01/21 12:34> Labs CBC & Chem 7: : 08/29/21 06:28 08/29/21 06:28 <LUCI Ott - Last Filed: 09/01/21 12:34> Assessment and Plan (1) COVID-19: Status: Acute <LUCI Ott - Last Filed: 09/01/21 12:34> Plan This is a 75 yo F with a PMH of asthma, anxiety/depression, unvaccinated for COVID 19 who presents to the hospital after her daughter found her in vomitus + stool. She is covid positive and after initially being normo-oxic, she has gone to develop hypoxia and now will be admitted for further treatment. Acute Respiratory Failure with hypoxia this morning 93% on 2L goal o2 > 90% COVID 19 symptom onset date: 08/24-08/25; home test positive on 08/26 continue decadron - day 09/17; remdesivir 09/12 ID input appreciated crp trending down Chronic Asthma continue her inhalers Toxic/Metabolic encephalopathy due to COVID resolved GERD PPI Anxiety / Depression continue baseline meds hypothyroidism Continue Synthroid morbid obesity BMI 42.5 likely contributing to overall respiratory issues Full Code DVT pptx, Lovenox HCP -- Daughter Jessy attending- Dr. Jimenes Reason for continued hospitalization: continues to require oxygen + treatment with remdesivir/decadron seen by PT - recommending STR, pt wants to return home if able; PT re-eval tomorrow, may need home o2 eval prior to d/c <LUCI Ott - Last Filed: 09/01/21 12:34> Quality Stroke Does the patient have a stroke diagnosis?: No <LUCI Ott - Last Filed: 09/01/21 12:34> VTE Prior VTE?: No <LUCI Ott - Last Filed: 09/01/21 12:34> VTE Risk Level:: Medical - moderate - high <LUCI Ott - Last Filed: 09/01/21 12:34> VTE Device Contraindication: Treatment Not Indicated <LUCI Ott - Last Filed: 09/01/21 12:34> VTE Drug Contraindication: N/A - Med Ordered <LUCI Ott - Last Filed: 09/01/21 12:34>
[2021-09-01 15:09] VITALS: BP 129/64; PULSE 71; RESP 20; TEMP 36.9; O2SAT 96
[2021-09-01 19:06] VITALS: BP 166/82; PULSE 74; RESP 20; TEMP 36.3; O2SAT 95
[2021-09-01] MEDS: Acetaminophen 325 MG TABLET 650 MG PO (21:01)
[2021-09-01 23:23] VITALS: BP 128/54; PULSE 69; RESP 16; TEMP 37.7; O2SAT 97
[2021-09-02 03:23] VITALS: BP 153/95; PULSE 64; RESP 16; TEMP 36.6; O2SAT 96
[2021-09-02] MEDS: Levothyroxine Sodium 75 MCG TABLET PO (05:35)
[2021-09-02] MEDS: Omeprazole 20 MG CAPSULE.DR PO (05:36)
[2021-09-02 07:42] VITALS: BP 120/76; PULSE 72; RESP 18; TEMP 36.8
[2021-09-02 09:08] LABS: Alanine Aminotransferase 45 U/L (0-31); Albumin Level 3.6 g/dL (3.5-5.0); Alkaline Phosphatase 97 U/L (39-117); Aspartate Amino Transferase 27 U/L (5-31); Bilirubin Direct 0.2 mg/dL (0.0-0.5); Bilirubin Total 0.4 mg/dL (0.0-1.0); Total Protein 6.1 g/dL (6.5-8.0)
[2021-09-02 09:45] LABS: C Reactive Protein 1.08 mg/dL (< or = 0.50)
[2021-09-02] MEDS: dexAMETHasone sod phosphate 4 MG/ML VIAL 6 MG IVPUSH (10:33)
[2021-09-02] MEDS: Mirabegron 25 MG TAB.ER.24H PO (10:33)
[2021-09-02] MEDS: Sertraline HCL 50 MG TABLET PO (10:33)
[2021-09-02] MEDS: 0.9 % Sodium Chloride Flush 3 ML SYRINGE IVFLUSH ×3 (10:35→19:33)
[2021-09-02] MEDS: Nystatin Powder 15 GM BOTTLE 1 APPL TOPICAL ×2 (10:36→19:33)
[2021-09-02] MEDS: Enoxaparin Sodium 40 MG/0.4 ML SYRINGE SUBCUT (10:36)
[2021-09-02 11:01] VITALS: PULSE 70; PULSE 86; O2SAT 95; O2SAT 96
[2021-09-02 12:00] VITALS: BP 173/81; PULSE 76; RESP 18; TEMP 39.3; O2SAT 95
--- NOTE | 2021-09-02 14:41 | W.MHC.F2F ---
Service Date Service Date: 09/02/21 Encounter Date of encounter: 09/02/21 Reasons for Services Signs and symptoms assessed: Dyspnea Weakness Reason for nursing home: medication management, medication treatment and teach disease management Reason for physical therapy: home safety and mobility, therapeutic exercises, gait/transfer training, assess need for DME, ADL training and energy conservation MD Overseeing Care: Shania Edmonds Homebound: Leaving the home is medically contraindicated at this time without the asist of a device and/or another person due th the listed conditions above and below. Reason homebound: unsteady gait / fall risk, immunosuppression / infection risk and weakness related to hospital stay Homebound supporting statement: Pt was admitted to [facility] 08/28-09/02/21 with hypoxia from Covid-19 infection Certification: Based on the above findings, I certify that this patient is confined to the home and needs intermittent nursing home care, physical therapy and/or speech therapy, or continues to need occupational therapy. The patient is under my care, and I have initiated the establishment of the plan of care. The patient will be followed by a physician who will periodically review the plan of care.
--- NOTE | 2021-09-02 14:52 | P.PNIM_ITS ---
Subjective Subjective Date of Service: 09/02/21 Interval History: Febrile to 102.7 today, discharge held. Weaned off O2 and does not require home O2. Minimal cough. Very weak. Review of Systems Review of Systems: Yes all other systems are reviewed and are negative Physical Exam Vital Signs: Vital Signs: Last Vital Signs Temp 102.7 F H 09/02/21 12:00 Pulse 76 09/02/21 12:00 Resp 18 09/02/21 12:00 BP 173/81 H 09/02/21 12:00 Pulse Ox 95 09/02/21 12:00 BMI result Body Mass Index 42.5 Gen: in no acute distress HEENT: sclera anicteric, moist mucus membranes Neck: supple Lungs: clear to auscultation bilaterally Heart: regular rate and rhythm, no murmurs Abd: soft, non-tender, non-distended, morbidly obese Ext: no edema Skin: warm/well-perfused Neuro: alert and oriented x3, no focal findings Psych: appropriate affect Objective Data Active Medications Acetaminophen (Acetaminophen 325 Mg Tablet) 650 mg PO Q6H PRN PRN Reason: Pain, Mild (Pain Scale 1-3) Last Admin: 09/01/21 21:01 Dose: 650 mg Documented by: SHARON Albuterol Sulfate (Albuterol Sulfate 90 Mcg 8 Gm Inhaler) 2 puff INHALE Q6H PRN PRN Reason: bronchospasm Last Admin: 08/29/21 14:44 Dose: 2 puff Documented by: RAMESH Dexamethasone Sodium Phosphate (Dexamethasone Sod Phosphate 4 Mg/Ml Vial) 6 mg IVPUSH DAILY [facility] Stop: 09/06/21 09:01 Last Admin: 09/02/21 10:33 Dose: 6 mg Documented by: GISSELLE Enoxaparin Sodium (Enoxaparin Sodium 40 Mg/0.4 Ml Syringe) 40 mg SUBCUT Q24H [facility] Last Admin: 09/02/21 10:36 Dose: 40 mg Documented by: GISSELLE Levothyroxine Sodium (Levothyroxine Sodium 75 Mcg Tablet) 75 mcg PO DAILY@0630 [facility] Last Admin: 09/02/21 05:35 Dose: 75 mcg Documented by: SHARON Mirabegron (Mirabegron 25 Mg Tab.Er.24h) 25 mg PO DAILY [facility] Last Admin: 09/02/21 10:33 Dose: 25 mg Documented by: GISSELLE Non-Formulary Medication (Fluticasone Propionate [Flovent Hfa]) 1 puff INHALE BID [facility] Nystatin (Nystatin Powder 15 Gm Bottle) 1 appl TOPICAL BID [facility] Last Admin: 09/02/21 10:36 Dose: 1 appl Documented by: GISSELLE Omeprazole (Omeprazole 20 Mg Capsule.Dr) 20 mg PO DAILY@0630 [facility] Last Admin: 09/02/21 05:36 Dose: 20 mg Documented by: SHARON Ondansetron HCl (Ondansetron Hcl 4 Mg/2 Ml Vial) 4 mg IVPUSH Q8H PRN PRN Reason: nausea/vomiting Last Admin: 08/31/21 03:15 Dose: 4 mg Documented by: STEPHANIE Pharmacy Consult (Consult Rx Perform Med Rec) 1 each MISCELLANE ONCE PRN PRN Reason: Consult order Sertraline HCl (Sertraline Hcl 50 Mg Tablet) 50 mg PO DAILY [facility] Last Admin: 09/02/21 10:33 Dose: 50 mg Documented by: GISSELLE Sodium Chloride (0.9 % Sodium Chloride Flush 3 Ml Syringe) 3 ml IVFLUSH QSHIFT [facility] Last Admin: 09/02/21 10:35 Dose: 3 ml Documented by: GISSELLE Labs CBC & Chem 7: 08/29/21 06:28 08/29/21 06:28 Labs: Laboratory Results - last 24 hr 09/02/21 08:31 Total Bilirubin 0.4 Direct Bilirubin 0.2 AST 27 ALT 45 H Alkaline Phosphatase 97 D C-Reactive Protein 1.08 H Total Protein 6.1 L Albumin 3.6 Microbiology Microbiology Results: Microbiology 08/27/21 17:41 Blood Culture - Final Blood - Venous No growth after 5 days. 08/27/21 17:18 Blood Culture - Final Blood - Venous No growth after 5 days. Assessment and Plan (1) COVID-19: Status: Acute Plan hospital d#6 75yo F with asthma, morbid obesity, anxiety/depression, not vaccinated against Covid-19 presented after daughter found her covered in vomitus and stool found to be Covid-19 positive, was hypoxic but now off O2 but developed fever # fever - check BCx + PCT, repeat CXR, check UA/UCx, repeat labs in AM # Covid-19 infection - onset date 08/24-08/25, home antigen test positive 08/26 - completed 5d remdesivir - dexamethasone d#10/18 - monitor inflammatory markers - ID consulted # acute hypoxic resp failure - resolved # toxic-metabolic encephalopathy - due to Covid-19; resolved # mild persistent asthma with acute exacerbation - steroid as above, prn albuterol # GERD - PPI # anxiety/depression - continue sertraline # hypothyroidism - continue LT4 # morbid obesity - risk factor for severe Covid-19 # VTE ppx - LMWH # dispo - eventual home with VNA vs. STR In my clinical judgment, the patient requires continued hospitalization for the following reasons: high fever, risk for severe Covid or bacterial superinfection Quality Stroke Does the patient have a stroke diagnosis?: No VTE Prior VTE?: No VTE Risk Level:: Medical - moderate - high VTE Device Contraindication: Treatment Not Indicated VTE Drug Contraindication: N/A - Med Ordered
[2021-09-02 15:01] VITALS: BP 155/71; PULSE 74; RESP 20; TEMP 37.1; O2SAT 94
[2021-09-02 16:04] LABS: Procalcitonin 0.07 ng/mL
[2021-09-02 18:30] LABS: Appearance Urine HAZY; Color Urine YELLOW; Glucose Urine UA NEG (NEG); Leukocyte Esterase Urine NEG (NEG); Nitrite Urine NEG (NEG); Specific Gravity - Urine 1.025 (1.005-1.025); UACC Culture Trigger NO; Urine Blood 1+ (NEG); Urine Ketones NEG (NEG); Urine Protein NEG (NEG-TRACE)
[2021-09-02 19:02] VITALS: BP 129/72; PULSE 80; RESP 20; TEMP 36.7; O2SAT 93
[2021-09-02 19:26] LABS: Bacteria Urine 3+ /LPF; Squamous Epithelial Cell Urine 3+ /LPF; Urine Talc Crystals 2+ /LPF; WBC Urine 0-2 /HPF (0-4)
[2021-09-03] VITALS (7 sets, daily range): BP systolic 134–166; BP diastolic 74–88; PULSE 69–98; RESP 18–20; TEMP 35.9–37.2; O2SAT 91–99
[2021-09-03] MEDS: Omeprazole 20 MG CAPSULE.DR PO (05:39)
[2021-09-03] MEDS: Levothyroxine Sodium 75 MCG TABLET PO (05:39)
[2021-09-03 07:12] LABS: Hematocrit 42.7 % (37.0-47.0); Hemoglobin 13.8 g/dl (12.0-16.0); Mean Corpuscular HGB Conc 32.3 g/dl (31.0-35.0); Mean Corpuscular Hemoglobin 27.3 pg (27.0-33.0); Mean Corpuscular Volume 84.4 fL (80.0-98.0); Mean Platelet Volume 11.1 fL (9.4-12.3); Platelet Count 246 X10*3/uL (160-400); Red Blood Count 5.06 X10*6/uL (4.20-5.50); Red Cell Distribution Width 13.7 % (11.0-16.0); White Blood Count 6.1 X10*3/uL (4.8-10.8)
[2021-09-03 07:19] LABS: D Dimer High Sensitivity 990 NG/ML
[2021-09-03 07:29] LABS: Anion Gap 12 (12-20); Blood Urea Nitrogen 24 mg/dL (9-16); Carbon Dioxide 25 mmol/L (22-29); Chloride 104 mmol/L (96-108); Creatinine Clr Calc Pharmacy 80.1; Estimated Glomerular Filt Rate > 60; Glucose Random 138 mg/dL (60-115); Potassium 3.9 mmol/L (3.3-5.1); Sodium 137 mmol/L (135-145)
[2021-09-03] MEDS: 0.9 % Sodium Chloride Flush 3 ML SYRINGE IVFLUSH ×3 (09:48→23:54)
[2021-09-03] MEDS: Nystatin Powder 15 GM BOTTLE 1 APPL TOPICAL ×2 (09:49→22:14)
[2021-09-03] MEDS: Mirabegron 25 MG TAB.ER.24H PO (09:49)
[2021-09-03] MEDS: Sertraline HCL 50 MG TABLET PO (09:49)
[2021-09-03] MEDS: dexAMETHasone sod phosphate 4 MG/ML VIAL 6 MG IVPUSH (09:49)
[2021-09-03] MEDS: Albuterol Sulfate 90 MCG 8 GM INHALER 2 PUFF INHALE (09:53)
[2021-09-03] MEDS: Enoxaparin Sodium 40 MG/0.4 ML SYRINGE SUBCUT (09:53)
--- NOTE | 2021-09-03 12:08 | HO.PM.IMPN ---
Subjective Subjective Date of Service: 09/03/21 Interval History: Febrile to 102.7 yesterday afternoon. Cough improved. C/o dyspnea + wheeze, improved with inhaler. Having frequent PACs/PVCs Review of Systems Review of Systems: Yes all other systems are reviewed and are negative Physical Exam Vital Signs: Vital Signs: Last Vital Signs Temp 98.7 F 09/03/21 11:20 Pulse 98 09/03/21 11:20 Resp 20 09/03/21 11:20 BP 134/85 09/03/21 11:20 Pulse Ox 98 09/03/21 11:20 BMI result Body Mass Index 42.5 Gen: in no acute distress HEENT: sclera anicteric, moist mucus membranes Neck: supple Lungs: clear to auscultation bilaterally Heart: regular rate and rhythm, no murmurs Abd: soft, non-tender, non-distended, morbidly obese Ext: no edema Skin: warm/well-perfused Neuro: alert and oriented x3, no focal findings Psych: appropriate affect Objective Data Active Medications Acetaminophen (Acetaminophen 325 Mg Tablet) 650 mg PO Q6H PRN PRN Reason: Pain, Mild (Pain Scale 1-3) Last Admin: 09/01/21 21:01 Dose: 650 mg Documented by: SHARON Albuterol Sulfate (Albuterol Sulfate 90 Mcg 8 Gm Inhaler) 2 puff INHALE Q6H PRN PRN Reason: bronchospasm Last Admin: 09/03/21 09:53 Dose: 2 puff Documented by: GISSELLE Dexamethasone Sodium Phosphate (Dexamethasone Sod Phosphate 4 Mg/Ml Vial) 6 mg IVPUSH DAILY [facility] Stop: 09/06/21 09:01 Last Admin: 09/03/21 09:49 Dose: 6 mg Documented by: GISSELLE Enoxaparin Sodium (Enoxaparin Sodium 40 Mg/0.4 Ml Syringe) 40 mg SUBCUT Q24H [facility] Last Admin: 09/03/21 09:53 Dose: 40 mg Documented by: GISSELLE Levothyroxine Sodium (Levothyroxine Sodium 75 Mcg Tablet) 75 mcg PO DAILY@0630 [facility] Last Admin: 09/03/21 05:39 Dose: 75 mcg Documented by: SHARON Mirabegron (Mirabegron 25 Mg Tab.Er.24h) 25 mg PO DAILY [facility] Last Admin: 09/03/21 09:49 Dose: 25 mg Documented by: GISSELLE Nystatin (Nystatin Powder 15 Gm Bottle) 1 appl TOPICAL BID [facility] Last Admin: 09/03/21 09:49 Dose: 1 appl Documented by: GISSELLE Omeprazole (Omeprazole 20 Mg Capsule.Dr) 20 mg PO DAILY@0630 [facility] Last Admin: 09/03/21 05:39 Dose: 20 mg Documented by: SHARON Ondansetron HCl (Ondansetron Hcl 4 Mg/2 Ml Vial) 4 mg IVPUSH Q8H PRN PRN Reason: nausea/vomiting Last Admin: 08/31/21 03:15 Dose: 4 mg Documented by: STEPHANIE Pharmacy Consult (Consult Rx Perform Med Rec) 1 each MISCELLANE ONCE PRN PRN Reason: Consult order Sertraline HCl (Sertraline Hcl 50 Mg Tablet) 50 mg PO DAILY [facility] Last Admin: 09/03/21 09:49 Dose: 50 mg Documented by: GISSELLE Sodium Chloride (0.9 % Sodium Chloride Flush 3 Ml Syringe) 3 ml IVFLUSH QSHIFT [facility] Last Admin: 09/03/21 09:48 Dose: 3 ml Documented by: GISSELLE Labs CBC & Chem 7: 09/03/21 06:34 09/03/21 06:34 Labs: Laboratory Results - last 24 hr 09/02/21 09/02/21 09/03/21 15:18 18:13 06:34 MCV 84.4 MCH 27.3 MCHC 32.3 RDW 13.7 Plt Count 246 MPV 11.1 Absolute Nucleated RBC 0.000 Nucleated RBC % (auto) 0.0 D-Dimer High Sensitivty Anion Gap Estim Creat Clear Calc Estimated GFR Random Glucose Calcium Procalcitonin 0.07 Urine Color YELLOW Urine Appearance HAZY Urine pH 6.0 Ur Specific [place] 1.025 Urine Protein NEG Urine Glucose (UA) NEG Urine Ketones NEG Urine Blood 1+ H Urine Nitrite NEG Ur Leukocyte Esterase NEG Urine RBC 1-4 Urine WBC 0-2 Ur Squamous Epith Cells 3+ [place] Crystals 2+ Urine Bacteria 3+ 09/03/21 09/03/21 06:34 06:34 MCV MCH MCHC RDW Plt Count MPV Absolute Nucleated RBC Nucleated RBC % (auto) D-Dimer High Sensitivty 990 Anion Gap 12 Estim Creat Clear Calc 80.1 Estimated GFR > 60 Random Glucose 138 H Calcium 9.0 Procalcitonin Urine Color Urine Appearance Urine pH Ur Specific [place] Urine Protein Urine Glucose (UA) Urine Ketones Urine Blood Urine Nitrite Ur Leukocyte Esterase Urine RBC Urine WBC Ur Squamous Epith Cells [place] Crystals Urine Bacteria Assessment and Plan (1) COVID-19: Status: Acute Plan hospital d#7 75yo F with asthma, morbid obesity, anxiety/depression, not vaccinated against Covid-19 presented after daughter found her covered in vomitus and stool found to be Covid-19 positive, was hypoxic but now off O2 but developed fever # fever - UA without evidence of UTI. CXR without pneumonia. suspect due to Covid-19 but follow BCx and monitor. - check BCx + PCT, repeat CXR, check UA/UCx, repeat labs in AM # Covid-19 infection - onset date 08/24-08/25, home antigen test positive 08/26 - completed 5d remdesivir - dexamethasone d#11/17 - monitor inflammatory markers - ID consulted # acute hypoxic resp failure - resolved # toxic-metabolic encephalopathy - due to Covid-19; resolved # mild persistent asthma with acute exacerbation - steroid as above, prn albuterol # PACs/PVCs - check Mg level, TTE # GERD - PPI # anxiety/depression - continue sertraline # hypothyroidism - continue LT4 # morbid obesity - risk factor for severe Covid-19 # VTE ppx - LMWH # dispo - eventual home with VNA In my clinical judgment, the patient requires continued hospitalization for the following reasons: high fever, risk for severe Covid or bacterial superinfection Quality Stroke Does the patient have a stroke diagnosis?: No VTE Prior VTE?: No VTE Risk Level:: Medical - moderate - high VTE Device Contraindication: Treatment Not Indicated VTE Drug Contraindication: N/A - Med Ordered
[2021-09-04] VITALS: BP 128/83; PULSE 63; RESP 18; TEMP 36.6; O2SAT 94
[2021-09-04 03:31] VITALS: BP 130/77; PULSE 71; RESP 18; TEMP 35.9; O2SAT 97
[2021-09-04] MEDS: Omeprazole 20 MG CAPSULE.DR PO (05:26)
[2021-09-04] MEDS: Levothyroxine Sodium 75 MCG TABLET PO (05:27)
[2021-09-04 06:41] LABS: Hematocrit 44.6 % (37.0-47.0); Hemoglobin 14.4 g/dl (12.0-16.0); Mean Corpuscular HGB Conc 32.3 g/dl (31.0-35.0); Mean Corpuscular Volume 83.5 fL (80.0-98.0); Mean Platelet Volume 11.1 fL (9.4-12.3); Platelet Count 297 X10*3/uL (160-400); Red Blood Count 5.34 X10*6/uL (4.20-5.50); Red Cell Distribution Width 13.7 % (11.0-16.0); White Blood Count 8.2 X10*3/uL (4.8-10.8)
[2021-09-04 06:56] LABS: C Reactive Protein 0.41 mg/dL (< or = 0.50)
--- NOTE | 2021-09-04 07:00 | CA_ITS ---
Transthoracic Echocardiogram Patient (Last, First, Middle): Heather Hunt M Gender: Female Date of : 1945 Age: 75 Procedure Date: 09/04/2021 Procedure Type: Transthoracic Echocardiogram Location: [facility] [place] Height: 160.02 cm Weight: 108.86 kg BSA: 2.09 m2 Heart Rate: bpm BP: 134 / 85 mmHg [employer]chandise Flow Associate: TEDDY Referring MD: Padmini Castelan MD Symptoms: PVCs, covid Study Quality: Fair ECG Rhythm: Sinus Conclusions: - The left ventricular systolic function is normal. The calculated ejection fraction is 61% by biplane method. - There is mild calcification of the aortic valve. - There is mild mitral annular calcification. Findings Left Ventricle Normal left ventricular cavity size. There is mildly increased left ventricular wall thickness. The left ventricular systolic function is normal. The calculated ejection fraction is 61% by biplane method. There is no evidence of regional wall motion abnormalities. Diastolic function is normal for age. Right Ventricle Normal right ventricular cavity size and systolic function. Atria Both atria are normal in size. Aortic Valve The aortic valve was not well visualized. There is a normal trileaflet aortic valve. There is mild calcification of the aortic valve. There is no aortic valve stenosis. There is no aortic valve regurgitation. Mitral Valve There is mild mitral annular calcification. There is no mitral valve regurgitation. There is no mitral valve stenosis. Pulmonic Valve The pulmonic valve is likely normal. Tricuspid Valve There is trace tricuspid valve regurgitation. The pulmonary artery systolic pressure is normal. Great Vessels The aortic annulus, sinuses of valsalva, and asc aorta are normal in size. Venous The inferior vena cava is normal in size and collapses greater than 50% with inspiration. Pericardium/Pleural There is no evidence of pericardial effusion. Prior Study Comparison No prior study available for comparison. Measurements 2D Linear Measurements IVSd: 1.03 0.6-0.9/0.6-1.0 cm LVIDd: 3.99 3.9-5.3/4.2-5.9 cm LVIDd Index: 1.91 2.4-3.2/2.2-3.1 cm/m2 LVIDs: 2.71 2.0-3.6 cm LVPWd: 1.03 0.7-1.1 cm LA Diam: 3.40 2.7-3.8/3.0-4.0 cm LAIDs Index: 1.63 1.5-2.3 cm/m2 LV Mass: 164.24 67-162/88-224 g LV Mass Index: 78.58 43-95/49-115 g/m2 LVOT Diam: 2.00 3.0+(-)1.3 cm 2D Systolic Function EF 4C: 64.50 >55% EF 2C: 61.60 >55% EF BiP: 61.20 >55% Mitral Valve MV Pk E: 1.02 MV PK A: 1.42 MV Decel Time: 264.00 E/A: 0.70 E'Lateral: 7.29 E'Medial: 6.53 E/E' Med: 15.60 E/E' Lat: 14.00 PHT: 77.00 MVA PHT: 2.86 Decel [place]: 3.87 Aortic Valve AoV Pk Jonathan: 2.21 AoV Mn Jonathan: 1.47 AoV VTI: 0.39 AoV Pk Grad: 20.00 Aov Mn Grad: 10.00 ZHANG Cont.VTI: 2.05 LVOT LVOT Pk Jonathan: 1.30 LVOT Mn Jonathan: 0.83 LVOT VTI: 0.26 LVOT Pk Grad: 7.00 LVOT Mn Grad: 3.00 LVOT Diam: 2.00 LVOT Area: 3.14 Diastolic Function MV Pk E: 1.02 MV Pk A: 1.42 E/A: 0.70 E'Medial: 6.53 E/E' Med: 15.60 E' Laterial: 7.29 E/E' Lat: 14.00 Right Ventricle TAPSE (mm): 23.60 TVS' Jonathan: 14.40 Tricuspid Valve TR Pk Jonathan: 1.74 TR Pk Grad: 12.00 RA Press: 8.00 RVSP: 20.00 Great Vessels Aorta Sinus of Valsalva: 29.10 2.0-3.5 cm Ao Asc: 3.40 2.1-3.4 cm Updated in Other Vendor System with Status of Final Maximiliano Alvarado MD electronically signed on 09/04/2021 2:46:49 PM with status of Final
[2021-09-04 07:16] LABS: Procalcitonin 0.07 ng/mL
[2021-09-04 08:00] VITALS: BP 153/84; PULSE 76; RESP 18; TEMP 36.6; O2SAT 96
[2021-09-04] MEDS: 0.9 % Sodium Chloride Flush 3 ML SYRINGE IVFLUSH (09:24)
[2021-09-04] MEDS: dexAMETHasone sod phosphate 4 MG/ML VIAL 6 MG IVPUSH (09:24)
[2021-09-04] MEDS: Nystatin Powder 15 GM BOTTLE 1 APPL TOPICAL (09:24)
[2021-09-04] MEDS: Mirabegron 25 MG TAB.ER.24H PO (09:24)
[2021-09-04] MEDS: Sertraline HCL 50 MG TABLET PO (09:24)
[2021-09-04] MEDS: Enoxaparin Sodium 40 MG/0.4 ML SYRINGE SUBCUT (09:24)
[2021-09-04 11:28] VITALS: BP 110/53; PULSE 75; RESP 18; TEMP 36.9; O2SAT 94
--- NOTE | 2021-09-04 12:50 | MHC.CM.PN ---
Addendum entered by Ruchi Mayfield 09/04/21 16:05: IMM 09/04/21 Addendum entered by Ruchi Mayfield 09/04/21 15:46: notified that pt declined Homecare services; because she has a private pay PT in place. Addendum entered by Ruchi Mayfield 09/04/21 15:44: DC HOME TODAY VIA BLS. PRIVATE PT IN PLACE. Original Note: FEMALE 75 DX COVID PLAN FOR ECHO TODAY. MAY DC LATER TODAY OR TOMORROW. MET W PT RE DP. P.T. RECOMMENDS HOME PT. THE PATIENTS PREFERENCE IS PRIVATE P.T. PT WILL NEED ASSIST WITH TRANSPORTATION @ DISCHARGE.
--- NOTE | 2021-09-04 14:23 | P.DS_ITS ---
DS: Providers Provider Date of Service: 09/04/21 Date of admission: 08/28/21 09:34 Date of discharge: 09/04/21 Primary care physician: Shania Edmonds MD Admitting clinician: Devon Maldonado Attending physician on admission: Devon Maldonado Consults: 08/28/21 09:36 Consult to Infectious Diseases Routine Consulting Provider: Amber Easley Reason for consultation: covid positive, asthma, obesity, unvaccinated Attending physician on discharge: Padmini Castelan Discharging clinician: Padmini Castelan DS: Diagnosis Discharge Diagnosis (1) COVID-19: Status: Acute (2) Acute respiratory failure with hypoxia: Status: Acute (3) PVCs (premature ventricular contractions): Status: Acute (4) Morbid obesity: Status: Acute (5) Mild persistent asthma with (acute) exacerbation: Status: Acute (6) Toxic encephalopathy: Status: Acute DS: Summary Hospital Course Hospital Course: from admission H+P: This is a 75 year old F with a PMH of asthma, anxiety/depression, GERD and a recent hospitalization from 08/07 to 08/10 where she was treated with colitis. She presented to [facility] ED on 08/27/21 after she was found by her daughter covered in vomitus and stool. The patient is a vague historian and hence, the history is obtained from the patient's daughter (and healthcare proxy -- Jessy). Jessy (who reports that she is herself COVID+) states that about 5 days prior to arrival, she noted that her mother was becoming increasingly confused. The next day, she noticed that her mother was not eating and drinking per usual and so she tested her for COVID which came back negative. The following day (Thursday08/26/21), she found her mother covered in vomit / stool and was unable to get her up. She tested her again and was found to be covid positive and hence for the ED visit. The patient arrived to the ED on 08/27 and her work up was positive for COVID. CT imaging did not show any pneumonia. She remained normo-oxic but weak. The plan was for PT evaluation in the AM for disposition, however, the patient became hypoxic over night, dipping down to the mid 80s with minimal exertion. She was placed on 1-2L NC and admission was requested. The patient is unvaccinated for COVID due to a prior allergic reaction to the flu vaccine. The patient is seen and examined this AM in the Ed, around 845-9am. She reports no complaints other than being hungry. She knows shes in the hospital but tells me that she has not been feeling unwell and does not know why her daughter sent her here. Per conversation with daughter, this confusion is not the patient's baseline. She states that patient has completed multiple neuropsychiatric evaluations and has been diagnosed with depression/anxiety and not dementia. This 75yo F with asthma, morbid obesity, and anxiety/depression who was not vaccinated against Covid-19 presented after daughter found her covered in vomitus and stool. She was found to be Covid-19 positive and developed hypoxia. She was treated with remdesivir and dexamethasone. She was weaned off O2. Symptoms improved and inflammatory markers improved. Her mental status returned to baseline. She was discharged home with [facility] for home PT. She will take 3 more days of dexamethasone to complete a 10-day course for Covid-19 infection and asthma exacerb ation. Time Spent with Patient Time attestation: Total time spent providing and/or coordinating discharge services: Discharge coordination time: Greater than 30 minutes Quality: Safe Use of Opioids Does Pt have an Active Cancer Diagnosis on the Problem List?: No Quality: Stroke Does the patient have a stroke diagnosis?: No Physical Exam Vital Signs: Vital Signs: Last Vital Signs Temp 98.5 F 09/04/21 11:28 Pulse 75 09/04/21 11:28 Resp 18 09/04/21 11:28 BP 110/53 L 09/04/21 11:28 Pulse Ox 94 09/04/21 11:28 BMI result Body Mass Index 42.5 Gen: in no acute distress HEENT: sclera anicteric, moist mucus membranes Neck: supple Lungs: clear to auscultation bilaterally Heart: regular rate and rhythm, no murmurs Abd: soft, non-tender, non-distended, obese Ext: no edema Skin: warm/well-perfused Neuro: alert and oriented x3, no focal findings Psych: appropriate affect DS: Data Data Completed and Pending Completed studies during hospitalization [Text1]: Laboratory Results WBC 8.2 X10*3/uL (4.8-10.8) 09/04/21 06:30 RBC 5.34 X10*6/uL (4.20-5.50) 09/04/21 06:30 Hgb 14.4 g/dl (12.0-16.0) 09/04/21 06:30 Hct 44.6 % (37.0-47.0) 09/04/21 06:30 MCV 83.5 fL (80.0-98.0) 09/04/21 06:30 MCH 27.0 pg (27.0-33.0) 09/04/21 06:30 MCHC 32.3 g/dl (31.0-35.0) 09/04/21 06:30 RDW 13.7 % (11.0-16.0) 09/04/21 06:30 Plt Count 297 X10*3/uL (160-400) 09/04/21 06:30 MPV 11.1 fL (9.4-12.3) 09/04/21 06:30 Immature Gran % (Auto) 0.5 % (0.0-0.4) H 08/27/21 17:18 Neut % (Auto) 90.6 % (45-73) H 08/27/21 17:18 Lymph % (Auto) 2.4 % (20-40) L 08/27/21 17:18 [place] % (Auto) 6.0 % (2-11) 08/27/21 17:18 Eos % (Auto) 0.2 % (0-4) 08/27/21 17:18 Baso % (Auto) 0.3 % (0-2) 08/27/21 17:18 Lymph # (Auto) 0.2 X10*3/uL (1.2-4.9) L 08/27/21 17:18 [place] # (Auto) 0.5 X10*3/uL (0.1-1.2) 08/27/21 17:18 Eos # (Auto) 0.0 X10*3/uL (0.0-0.4) 08/27/21 17:18 Baso # (Auto) 0.0 X10*3/uL (0.0-0.2) 08/27/21 17:18 Abs Immat Gran (auto) 0.04 X10*3/uL (0.00-0.03) H 08/27/21 17:18 Absolute Neuts (auto) 7.9 x10*3/uL (2.0-8.3) 08/27/21 17:18 Absolute Nucleated RBC 0.000 X10*3/uL (0.0-0.012) 09/04/21 06:30 Nucleated RBC % (auto) 0.0 /100WBC (0.0-0.2) 09/04/21 06:30 Smear Tech's Comments VERIFIED 08/27/21 17:18 PT 12.1 SEC (9.9-13.0) 08/27/21 17:18 INR 1.1 (0.9-1.1) 08/27/21 17:18 D-Dimer High Sensitivty 990 NG/ML 09/03/21 06:34 VBG pH 7.40 (7.32-7.43) 08/27/21 17:21 VBG pCO2 36 mmHg 08/27/21 17:21 VBG pO2 49 mmHg 08/27/21 17:21 VBG HCO3 22 mmol/L (22-26) 08/27/21 17:21 VBG O2 Saturation 77.0 % 08/27/21 17:21 VBG Base Excess -1.6 mmol/L 08/27/21 17:21 Sodium 137 mmol/L (135-145) 09/03/21 06:34 Potassium 3.9 mmol/L (3.3-5.1) 09/03/21 06:34 Chloride 104 mmol/L (96-108) 09/03/21 06:34 Carbon Dioxide 25 mmol/L (22-29) 09/03/21 06:34 Anion Gap 12 (12-20) 09/03/21 06:34 BUN 24 mg/dL (9-16) H 09/03/21 06:34 Creatinine 0.74 mg/dL (0.5-1.4) 09/03/21 06:34 Estim Creat Clear Calc 80.1 09/03/21 06:34 Estimated GFR > 60 09/03/21 06:34 Random Glucose 138 mg/dL (60-115) H 09/03/21 06:34 Lactic Acid 1.1 mmol/L (0.5-2.0) 08/27/21 17:18 Calcium 9.0 mg/dL (8.4-10.2) 09/03/21 06:34 Magnesium 2.0 mg/dL (1.6-2.6) 09/03/21 06:34 Ferritin 45 ng/mL (10-250) 08/27/21 17:18 Total Bilirubin 0.4 mg/dL (0.0-1.0) 09/02/21 08:31 Direct Bilirubin 0.2 mg/dL (0.0-0.5) 09/02/21 08:31 AST 27 U/L (5-31) 09/02/21 08:31 ALT 45 U/L (0-31) H 09/02/21 08:31 Alkaline Phosphatase 97 U/L (39-117) D 09/02/21 08:31 Lactate Dehydrogenase 174 U/L (122-220) 08/27/21 17:18 Total Creatine Kinase 57 U/L (26-140) 08/27/21 17:18 Troponin I High Sens 5.3 ng/L (<3.5-17.0) 08/27/21 17:18 C-Reactive Protein 0.41 mg/dL (< or = 0.50) 09/04/21 06:30 Total Protein 6.1 g/dL (6.5-8.0) L 09/02/21 08:31 Albumin 3.6 g/dL (3.5-5.0) 09/02/21 08:31 Lipase 33 U/L (8-78) 08/27/21 17:18 Procalcitonin 0.07 ng/mL 09/04/21 06:30 Urine Color YELLOW 09/02/21 18:13 Urine Appearance HAZY 09/02/21 18:13 Urine pH 6.0 (5.0-8.0) 09/02/21 18:13 Ur Specific [place] 1.025 (1.005-1.025) 09/02/21 18:13 Urine Protein NEG MG/DL (NEG-TRACE) 09/02/21 18:13 Urine Glucose (UA) NEG MG/DL (NEG) 09/02/21 18:13 Urine Ketones NEG MG/DL (NEG) 09/02/21 18:13 Urine Blood 1+ (NEG) H 09/02/21 18:13 Urine Nitrite NEG (NEG) 09/02/21 18:13 Ur Leukocyte Esterase NEG (NEG) 09/02/21 18:13 Urine RBC 1-4 /HPF (0) 09/02/21 18:13 Urine WBC 0-2 /HPF (0-4) 09/02/21 18:13 Ur Squamous Epith Cells 3+ /LPF 09/02/21 18:13 Talc Crystals 2+ /LPF 09/02/21 18:13 Urine Bacteria 3+ /LPF 09/02/21 18:13 COVID-19 (ANEL) Positive (Negative) A 08/27/21 17:18 COVID-19 Clin Com See Note 08/27/21 17:18 Impressions Chest CTA 08/27/21 19:22 IMPRESSION: No central pulmonary emboli. No focal airspace disease. Small hiatal hernia. VTE: Negative Chest X-Ray 09/02/21 15:40 IMPRESSION: Unremarkable examination. TTE 09/04/21 - The left ventricular systolic function is normal.? The ? calculated ejection fraction is 61% by biplane method. ? - There is mild calcification of the aortic valve. ? - There is mild mitral annular calcification.? ? ? Labs on day of discharge: Laboratory Results - last 24 hr 09/04/21 09/04/21 09/04/21 06:30 06:30 06:30 WBC 8.2 RBC 5.34 Hgb 14.4 Hct 44.6 MCV 83.5 MCH 27.0 MCHC 32.3 RDW 13.7 Plt Count 297 MPV 11.1 Absolute Nucleated RBC 0.000 Nucleated RBC % (auto) 0.0 C-Reactive Protein 0.41 Procalcitonin 0.07 Preliminary micro results at discharge 09/02/21 15:18 Blood Culture - Preliminary Blood - Venous No growth after 24 hours. 09/02/21 15:15 Blood Culture - Preliminary Blood - Venous No growth after 24 hours. Discharge Plan Discharge Patient Disposition: Home Health Service Discharge Diagnosis: Covid-19 infection, hypoxia Referrals: Shania Alberts MD [Primary Care Provider] - 1 Week Discharge Medications: New dexamethasone 6 mg tablet 6 mg PO DAILY Qty: 3 0RF Continued albuterol sulfate 90 mcg/actuation HFA aerosol inhaler 2 puff inhalation Q6H PRN (Reason: bronchospasm) 30 Days Qty: 25.5 4RF Flovent HFA 44 mcg/actuation HFA aerosol inhaler 1 puff inhalation BID Qty: 31.8 1RF omeprazole 20 mg capsule,delayed release(DR/EC) 20 mg PO DAILY 90 Days Qty: 90 3RF Myrbetriq 25 mg tablet extended release 24 hr 25 mg PO DAILY 90 Days Qty: 90 1RF levothyroxine 75 mcg tablet 75 mcg PO DAILY@0630 0RF sertraline 50 mg tablet 50 mg PO DAILY 0RF (DME) CPAP Machine/Device Device See Rx Instructions .ROUTE .MEDSUPPLY Qty: 1 0RF Rx Instructions: autoPAP 5-20 cmH2O Discharge Orders: Discharge Order (Routine); Ordered 09/04/21 Ordered By: Padmini Castelan Diet: advance to usual diet and diabetic diet Activity on Discharge: As tolerated Stand Alone Forms: Patient Portal Discharge page Print Language: Maori Care Plan Goals: recovery from Covid-19 infection Health Concerns: Covid-19 infection, hypoxia Plan of Treatment: take dexamethasone 6 mg daily for 3 more days see your primary care doctor in 1-2 weeks return to hospital if you develop shortness of breath or oxygen saturation of <90% Assessment: See Discharge Summary Patient Instructions: Acute Diarrhea (ED), COVID-19 (Coronavirus Disease 2019) (ED)
[2021-09-04 15:06] VITALS: BP 151/67; PULSE 76; RESP 20; TEMP 36.1; O2SAT 94
== END 2021-09-04 17:00 | disposition home health service (06) | DRG 177 ==
LOC: HO.ED 08-28 09:59 → HO.EDOVER 08-28 10:18 → HO.IMC 08-28 11:11
PROVIDERS: Physician Assistant Medical; Admitting Provider Family Medicine; Emergency Provider Emergency Medicine; PCP Internal Medicine; Visit Provider Family Medicine
DX: U07.1 COVID-19 (principal); J96.01 Acute respiratory failure with hypoxia; G92.8 Other toxic encephalopathy; J45.31 Mild persistent asthma with (acute) exacerbation; Z68.41 Body mass index [BMI] 40.0-44.9, adult; E03.9 Hypothyroidism, unspecified; E66.01 Morbid (severe) obesity due to excess calories; K21.9 Gastro-esophageal reflux disease without esophagitis; F41.9 Anxiety disorder, unspecified; F32.A Depression, unspecified; I49.1 Atrial premature depolarization; I49.3 Ventricular premature depolarization; G47.33 Obstructive sleep apnea (adult) (pediatric); Z28.310 Unvaccinated for COVID-19; Z88.0 Allergy status to penicillin; Z88.2 Allergy status to sulfonamides; Z88.5 Allergy status to narcotic agent; Z88.7 Allergy status to serum and vaccine; Z79.51 Long term (current) use of inhaled steroids; Z79.890 Hormone replacement therapy; Z79.899 Other long term (current) drug therapy
CPT/HCPCS: 36415; 71045; 71275; 80048; 80076; 81001; 82550; 82728; 82803; 83605; 83615; 83690; 83735; 84145; 84484; 85025; 85027; 85379; 85610; 86140; 87040; 87635; 93005; 93306; 96361; 96374; 97110; 97116; 97162; 99285; J0248; J1100; J1650; J2405; Q9967

== ENCOUNTER → 2021-10-04 13:49 | Outpatient (BNVA) | payer MEDICARE, OTHER, SELFPAY | PROVIDERS: PCP Internal Medicine; Visit Provider Urology | DX: N32.81 Overactive bladder (principal) | CPT/HCPCS: Q3014 ==

== ENCOUNTER 2022-01-14 22:16 | Inpatient (IN) | payer MEDICARE, OTHER, SELFPAY ==
--- NOTE | ~2022-01-14 | XR_ITS ---
EXAMINATION: XR CHEST CLINICAL INFORMATION: NG tube placement. COMPARISON: Chest radiograph dated from 01/22/2022. TECHNIQUE: AP view of the chest was obtained. FINDINGS: Left-sided PICC line terminates projecting over the right atrium. An enteric tube terminates outside of the field of view. Cardiomediastinal silhouette is unchanged. EKG wires are again noted. Increased hazy airspace opacities in the right lung base with mildly increased blunting of the right costophrenic angle. No pneumothorax. No acute osseous abnormalities. XR/XR chest 1V IMPRESSION: The enteric tube terminates outside of the [id number]. Mildly worsening pulmonary aeration in the right lower lobe possibly related with worsening atelectasis and small amount of pleural fluid. Aspiration cannot be excluded. Clinical correlation is needed.
--- NOTE | ~2022-01-14 | XR_ITS ---
EXAMINATION: XR CHEST CLINICAL INFORMATION: Shortness of breath COMPARISON: 01/21/2022 TECHNIQUE: Frontal view of the chest was obtained. FINDINGS: Lungs are hypoinflated. Heart size remains normal. NG tube is unchanged in position with tip in the gastric antrum. Bibasilar atelectasis is present. Small right effusion is present as is a subpulmonic left pleural effusion, both slightly increased from prior. XR/XR chest 1V IMPRESSION: Hypoinflated lungs with bilateral pleural effusions, small.
--- NOTE | ~2022-01-14 | CT_ITS ---
EXAMINATION: CT ABDOMEN AND PELVIS WITHOUT CONTRAST CLINICAL INFORMATION: Nausea and vomiting COMPARISON: Previous CT of the abdomen and pelvis and abdominal ultrasound 01/15/2022 and MRCP 01/16/2022 KUB from earlier the same day TECHNIQUE: Multidetector volumetric imaging was performed from the superior aspect of the liver through the pubic symphysis. Sagittal and coronal reformatted images were obtained on the technologist's workstation. This CT examination was performed using dose optimization techniques as appropriate, variously including the following: *Automated exposure control *Adjustment of mA and/or kV according to patient size (this includes techniques or standardized protocols for targeted exams where dose is matched to indication/reason for exam; i.e. extremities or head) *Use of iterative reconstruction technique DLP: 962 mGy-cm FINDINGS: LUNG BASES: There are new small bilateral pleural effusions. There is new airspace disease in the right lower lobe suggestive of a small pneumonia. The distal esophagus is distended and filled with fluid. LIVER, GALLBLADDER, AND BILIARY TREE: The liver is upper normal in size. No focal liver lesion or biliary duct dilatation. The gallbladder is normal in size. There is high attenuation material in the gallbladder likely related to previous ERCP.. PANCREAS: There is new heterogeneous soft tissue and fat stranding and small amount of fluid surrounding the pancreas and in the small bowel mesentery questionable for pancreatitis. Some of these areas appear high in attenuation, Hounsfield units without contrast measuring up to 35, questionable for hemorrhage. There is thickening of the bilateral anterior pararenal fascia and bilateral paracolic gutters. New small amount of generalized ascites. SPLEEN: Unremarkable. ADRENAL GLANDS: Unremarkable. KIDNEYS AND URETERS: The kidneys are normal in size, shape, and attenuation. No hydronephrosis, hydroureter, or calculi seen. No perinephric stranding. BLADDER: There is a Thompson catheter in the bladder. The bladder is empty. GASTROINTESTINAL TRACT: The stomach is dilated and filled with fluid. There are fluid-filled loops of small bowel suggestive of an ileus. There is diverticulosis of the colon. No evidence of diverticulitis is seen. ABDOMINAL WALL: Small ventral and umbilical hernia containing fat.. There is diffuse anasarca. LYMPH NODES: Normal. VASCULAR: Unremarkable. PELVIC VISCERA: Unremarkable. OSSEOUS STRUCTURES: Scoliosis and degenerative changes of the spine. Stable small sclerotic lesion in the left sacrum. CT/CT abdomen pelvis wo IV con IMPRESSION: New pancreatitis. Some fluid appears high in attenuation questionable for hemorrhagic pancreatitis. Dilated fluid-filled distal esophagus and stomach. Possible aspiration should be considered. Nasogastric tube may be helpful. Small bowel ileus. Diverticulosis of the colon. New small bilateral pleural effusions and right lower lobe atelectasis/pneumonia. Findings will be communicated by the [place] work flow can closing machine tender. Fleischner guidelines were followed.
--- NOTE | ~2022-01-14 | FL_ITS ---
EXAMINATION: XR FL WITH IMAGES CLINICAL INFORMATION: Pain. COMPARISON: MRCP 01/16/2022. TECHNIQUE: Fluoroscopy performed by Dr. Cheyenne Salgado. Fluoroscopy Time: 120. Cumulative Dose: 70.70 mGy. Images: 25. FINDINGS: During ERCP there is contrast opacifying right and left hepatic ducts and the CBD. There is no intraluminal filling defect. Part of the cystic duct and gallbladder was opacified with multiple stones seen in the gallbladder. FL/FL guidance in OR IMPRESSION: 1. Multiple gallstones with contrast opacifying the gallbladder. 2. CBD, right and left hepatic ducts are opacified without any intraluminal filling defects seen.
--- NOTE | ~2022-01-14 | US_ITS ---
EXAMINATION: US VENOUS ULTRASOUND WITH DOPPLER LOWER EXTREMITY, BILATERAL CLINICAL INFORMATION: Hypoxia with leg swelling COMPARISON: None TECHNIQUE: Ultrasound of the deep veins is performed from the hip to the calf with compression sonography and color and pulse Doppler assessment. Spectral analysis with color-flow imaging is performed. The calf veins were suboptimally visualized secondary to marked calf edema. FINDINGS: RIGHT: There is normal venous compression and respiratory variation and augmented flow. The visualized common femoral vein, superficial femoral vein, profunda femoral vein, popliteal vein, and the trifurcation region shows no evidence of deep venous thrombosis. There is no significant popliteal fossa cyst. LEFT: There is normal venous compression and respiratory variation and augmented flow. The visualized common femoral vein, superficial femoral vein, profunda femoral vein, popliteal vein, and the trifurcation region shows no evidence of deep venous thrombosis. There is no significant popliteal fossa cyst. If the patient's symptoms persist, followup ultrasound in 5 days 7 days might be of value to exclude proximal propagation from a non-visualized calf vein. US/US venous duplex LE BI IMPRESSION: No DVT demonstrated in either lower extremity.
--- NOTE | ~2022-01-14 | XR_ITS ---
EXAMINATION: XR ABDOMEN KUB CLINICAL INDICATION: Nausea and vomiting COMPARISON: 01/15/2022 TECHNIQUE: Decubitus view of the abdomen. FINDINGS: Nonobstructive bowel gas pattern. No dilated loops of bowel. Scattered gas throughout the colon. No free air on the decubitus view. No air-fluid levels. XR/XR KUB IMPRESSION: No free air. No air-fluid levels. No evidence of obstruction.
--- NOTE | ~2022-01-14 | XR_ITS ---
EXAMINATION: XR ABDOMEN KUB CLINICAL INDICATION: Follow-up ileus COMPARISON: Previous KUB January 21 2022 TECHNIQUE: AP view of the abdomen. FINDINGS: There are still gas-filled distended loops of large bowel probably representing an ileus. There is a nasogastric tube in the stomach. There is no free air. There are degenerative changes of the spine. XR/XR KUB IMPRESSION: Probable ileus similar to 01/21/2022 CT.
--- NOTE | ~2022-01-14 | XR_ITS ---
EXAMINATION: XR CHEST CLINICAL INFORMATION: Shortness of breath COMPARISON: 01/25/2022 TECHNIQUE: Frontal view of the chest was obtained. FINDINGS: Catheter overlying the junction of the superior vena cava right atrium. There is no pneumothorax. Once again low lung volumes. Mild left basilar atelectasis. Persistent right mid to lower lung opacity which could represent fluid and/or atelectasis/infiltrate or possibly edema. No significant change from previous. XR/XR chest 1V IMPRESSION: Findings similar to previous. Right basilar opacity may represent fluid and/or atelectasis/infiltrate or effusion. Minimal change at the left lung base.
--- NOTE | ~2022-01-14 | XR_ITS ---
EXAMINATION: XR CHEST CLINICAL INFORMATION: Shortness of breath COMPARISON: 01/14/2022 TECHNIQUE: Frontal view of the chest was obtained. FINDINGS: The lungs are hypoinflated. There are suspected minimal bibasilar opacities without additional consolidation. No evidence of pneumothorax, pleural effusion, or pulmonary edema. The cardiomediastinal contour is unremarkable. No acute osseous findings are seen. XR/XR chest 1V IMPRESSION: Minimal bibasilar opacities suggesting atelectasis in the setting of low lung volumes.
--- NOTE | ~2022-01-14 | IR_ITS ---
PROCEDURE: IR INSERTION OF PICC CLINICAL INFORMATION: Need for TPN and IV antibiotics COMPARISON: None TECHNIQUE: Following explaining ultrasound fluoroscopy-guided placement of left PICC line procedure, benefits and risk a written consent was obtained. Patient was placed supine with left arm extended and preliminary ultrasound imaging through the left arm. An optimal site was selected, marked, cleaned and draped in usual sterile manner with 2% chlorhexidine solution. 1% lidocaine was inserted in the skin at the marked site. A tourniquet was applied above the left arm. Under sterile ultrasound guidance a single wall needle was advanced and left basilic vein was punctured. After obtaining venous return a thin guidewire was advanced and placed in the left subclavian vein and needle withdrawn. A 5 Bangladeshi dilator with sheath was advanced over the guidewire and the short guidewire was removed. A long guidewire was inserted over the dilator and the sheath and the dilator was removed. A premeasured single lumen PICC catheter was then inserted over the guidewire and through the peel-away sheath and placed in SVC. The peel-away sheath was removed as the catheter was advanced. The single lumen catheter was then flushed with heparinized saline. Sterile dressing applied postprocedure. Patient tolerated procedure extremely well. All elements of maximal sterile barrier technique followed including use of cap, mask, sterile gown, sterile gloves, a sterile full body drape and hand hygiene. Also followed skin preparation with 2% chlorhexidine for cutaneous antisepsis, and sterile ultrasound preparation with sterile gel and probe cover when applicable. FINDINGS: On preliminary ultrasound imaging there is widely patent basilic, cephalic and brachial veins. Approximately 42 cm long single-lumen 5 Bangladeshi PICC catheter was placed under ultrasound fluoroscopy guidance. The tip of the catheter lies at the atrial caval junction. IR/IR cvc insert peripheral IMPRESSION: Successful ultrasound and fluoroscopy-guided placement of a single-lumen 5 Bangladeshi dual PICC catheter. Fluoroscopy time 1.9 minutes. DAP: 20 cGycm2
--- NOTE | ~2022-01-14 | XR_ITS ---
EXAMINATION: XR CHEST CLINICAL INFORMATION: Right-sided pain COMPARISON: 09/02/2021 TECHNIQUE: Frontal view of the chest was obtained. FINDINGS: The lungs are well expanded. There is no focal consolidation, edema, or effusion. Mild bronchial wall thickening. No pneumothorax. The cardiomediastinal silhouette is within normal limits. No acute osseous abnormality. XR/XR chest 1V IMPRESSION: No dense consolidation. Bronchial wall thickening can be seen with a small airways process such as asthma or atypical/viral infection.
--- NOTE | ~2022-01-14 | CT_ITS ---
EXAMINATION: CT ABDOMEN AND PELVIS WITHOUT CONTRAST CLINICAL INFORMATION: Right upper quadrant pain, question CBD stone COMPARISON: 08/07/2020 TECHNIQUE: Multidetector volumetric imaging was performed from the superior aspect of the liver through the pubic symphysis. Sagittal and coronal reformatted images were obtained on the technologist's workstation. This CT examination was performed using dose optimization techniques as appropriate, variously including the following: *Automated exposure control *Adjustment of mA and/or kV according to patient size (this includes techniques or standardized protocols for targeted exams where dose is matched to indication/reason for exam; i.e. extremities or head) *Use of iterative reconstruction technique DLP: 03/17/2020 mGy-cm FINDINGS: LUNG BASES: The visualized lung bases are unremarkable. LIVER, GALLBLADDER, AND BILIARY TREE: The liver is normal in size, shape, and attenuation. No focal hepatic lesion or biliary ductal dilatation is identified. The gallbladder is unremarkable with no evidence of radiopaque gallstones, gallbladder wall thickening, or obvious pericholecystic inflammatory changes. PANCREAS: Unremarkable. SPLEEN: Unremarkable. ADRENAL GLANDS: Unremarkable. KIDNEYS AND URETERS: The kidneys are normal in size, shape, and attenuation. No hydronephrosis, hydroureter, or calculi seen. No perinephric stranding. BLADDER: Minimally distended and grossly unremarkable. GASTROINTESTINAL TRACT: No evidence of bowel obstruction. There is colonic diverticulosis without convincing diverticulitis. No significant bowel wall thickening is seen. No free fluid or free air is seen. ABDOMINAL WALL: No significant hernia is appreciated. LYMPH NODES: Normal. VASCULAR: Scattered atherosclerotic calcifications. PELVIC VISCERA: Unremarkable. OSSEOUS STRUCTURES: Redemonstrated sclerotic focus in the left sacrum, suggestive of a bone island. Degenerative changes are present most prominently in the mid to lower lumbar spine. CT/CT abdomen pelvis wo IV con IMPRESSION: 1. No biliary ductal dilatation or appreciable choledocholithiasis. If clinically warranted, this may be more definitively assessed with MRCP. 2. Colonic diverticulosis without convincing diverticulitis.
--- NOTE | ~2022-01-14 | US_ITS ---
EXAMINATION: US ABDOMEN LIMITED CLINICAL INFORMATION: Right upper quadrant pain, elevated LFTs. COMPARISON: CT from earlier today TECHNIQUE: Real-time imaging of the right upper quadrant abdominal viscera. FINDINGS: Per technologist report, performance of the exam is limited due to patient body habitus. PANCREAS: The visualized proximal portion of the pancreas is unremarkable. The distal portion is obscured secondary to overlying bowel gas. LIVER: The liver is normal in size. The liver contour is normal. There is diffusely increased liver parenchymal echogenicity, consistent with hepatic steatosis. Focal sparing noted near the gallbladder fossa. No focal hepatic lesion. There is no intrahepatic biliary duct dilatation seen. GALLBLADDER: Gallstones are identified. Gallbladder wall thickness is within normal limits. No pericholecystic fluid. No right upper quadrant tenderness reported during the exam. COMMON BILE DUCT: Normal in caliber measuring 0.6 cm in diameter. RIGHT KIDNEY: No hydronephrosis. No renal calculi or focal parenchymal lesions. The kidney measures 10.2 cm in maximum dimension. FREE FLUID: None. US/US abdomen limited IMPRESSION: 1. Cholelithiasis without additional findings of cholecystitis. 2. Hepatic steatosis.
--- NOTE | ~2022-01-14 | XR_ITS ---
EXAMINATION: XR ABDOMEN KUB CLINICAL INDICATION: Nasogastric tube location COMPARISON: 01/24/2022 TECHNIQUE: AP view of the abdomen. FINDINGS: Similar to the prior study 01/24/2022, the tip of the enteric tube is in the body of the stomach. Nonobstructive abdominal bowel gas pattern. Bibasilar atelectasis. XR/XR abdomen 1V IMPRESSION: Tip of the enteric tube is in the body the stomach.
--- NOTE | ~2022-01-14 | XR_ITS ---
EXAMINATION: XR CHEST CLINICAL INFORMATION: NG tube placement COMPARISON: KUB and CT abdomen pelvis earlier today TECHNIQUE: Frontal view of the chest was obtained. FINDINGS: Interval placement of enteric tube which terminates below the level the diaphragm. The lungs are hypoinflated. There is no lobar consolidation. Blunting of both costophrenic angles, consistent with tiny bilateral effusions. No pneumothorax. Stable cardiac silhouette. XR/XR chest 1V IMPRESSION: Enteric tube terminates below the level of the diaphragm.
--- NOTE | ~2022-01-14 | XR_ITS ---
EXAMINATION: XR ABDOMEN KUB CLINICAL INDICATION: Nausea and vomiting. COMPARISON: KUB dated 01/26/2022; CT abdomen and pelvis dated 01/21/2022. TECHNIQUE: Multiple AP views of the abdomen and pelvis are submitted.. FINDINGS: There is gaseous distention of the stomach. There is moderate gas and stool within the colon, without pathologic distention. Gas and stool are noted to level of the rectosigmoid. In the upper abdomen, there is a mildly distended small bowel loop, with caliber of 3.9 cm. This may represent a sentinel loop related to previously described pancreatitis. No unusual soft tissue calcifications are noted. There are multiple pelvic phleboliths. No acute osseous abnormality is seen. There are degenerative changes of the lumbar spine. XR/XR abdomen 1V IMPRESSION: Findings suggest a mild adynamic ileus. No free intraperitoneal air is noted. Consider radiographic follow-up to resolution
--- NOTE | ~2022-01-14 | MR_ITS ---
EXAMINATION: MR ABDOMEN WITHOUT CONTRAST CLINICAL INFORMATION: Gallstones. Elevated liver function tests. COMPARISON: Previous CT of the abdomen and pelvis and limited abdominal ultrasound from yesterday TECHNIQUE: MR abdomen is performed without gadolinium contrast. MRCP sequences were also performed. FINDINGS: Exam is limited due to respiratory motion artifact. LUNG BASES: The visualized lung bases are unremarkable. LIVER, GALLBLADDER, AND BILIARY TREE: The liver is slightly enlarged. There is signal loss in the liver on out of phase sequences suggestive of mild fatty infiltration. The liver is normal in contour. The gallbladder is upper normal in size. There are multiple small gallstones. There is pericholecystic fluid. There is no intra or extrahepatic biliary duct dilatation. The common bile duct measures 5 mm. No common bile duct stone is seen. PANCREAS: Unremarkable. SPLEEN: Unremarkable. ADRENAL GLANDS: Unremarkable. KIDNEYS AND URETERS: The kidneys are normal in size and shape. No hydronephrosis. No perinephric stranding. GASTROINTESTINAL TRACT: No bowel obstruction. No ascites or fluid collection. ABDOMINAL WALL: Small umbilical hernia containing fat. LYMPH NODES: No lymphadenopathy. VASCULAR: Unremarkable. OSSEOUS STRUCTURES: Scoliosis and degenerative changes of the spine. MR/MR MRCP IMPRESSION: Limited exam. Upper normal-size gallbladder. Multiple small gallstones. Small amount of pericholecystic fluid. Appearance is questionable for acute cholecystitis. This could be further evaluated with HIDA scan if clinically indicated. Normal caliber intra and extrahepatic bile ducts. No common bile duct stone seen. Slightly enlarged fatty liver. Findings will be communicated by the [place] work flow manager office.
--- NOTE | ~2022-01-14 | XR_ITS ---
EXAMINATION: XR CHEST CLINICAL INFORMATION: NG tube placement COMPARISON: 01/21/2022 TECHNIQUE: Frontal view of the chest was obtained. FINDINGS: Enteric tube terminates in the stomach, in good position. Cardiac leads overlie the chest. Lung volumes are low. No consolidation, edema, or significant effusion. No pneumothorax. The cardiomediastinal silhouette is within normal limits. XR/XR chest 1V IMPRESSION: Enteric tube terminating in the stomach. This is in good position.
[2022-01-14 22:27] VITALS: BP 122/62; PULSE 74; RESP 16; O2SAT 97; BMI 37.8
--- NOTE | 2022-01-14 22:44 | ED.NAVMDI ---
HPI - Nausea/Vomiting/Diarrhea General Chief complaint: Abdominal Pain Stated complaint: BACK PAIN, VOMITING Time Seen by Provider: 01/14/22 22:20 Source: patient Mode of arrival: ambulatory Limitations: no limitations History of Present Illness HPI Narrative: Patient morbidly obese with history of GILDA comes here for nausea vomiting just prior to arrival vomited only 1 time also complaining of right shoulder pain which has been there off and on in the past no recent trauma no shortness of breath no chest pain no diarrhea no fever no chills also has upper abdominal pain patient also complaining of chronic lower back pain Related Data Home Medications Medication Instructions Recorded Confirmed fluticasone propionate 44 1 puff inhalation BID 01/15/22 01/15/22 mcg/actuation HFA aerosol inhaler (Flovent HFA) levothyroxine 75 mcg tablet 1 tab PO DAILY 01/15/22 01/15/22 mirabegron 25 mg tablet,extended 1 tab PO DAILY 01/15/22 01/15/22 release 24 hr (Myrbetriq) omeprazole 20 mg capsule,delayed 1 cap PO DAILY 01/15/22 01/15/22 release Allergies Allergy/AdvReac Type Severity Reaction Status Date / Time influenza virus vaccine, Allergy Severe SEVERE FLU Verified 11/27/21 13:27 specific SYMPTOMS [Influenza Virus Vacc,Specific] codeine [CODEINE] Allergy Intermediate NAUSEA & Verified 11/27/21 13:27 VOMITING Sulfa (Sulfonamide Allergy Intermediate Hives Verified 11/27/21 13:27 Antibiotics) amoxicillin [Amoxicillin] Allergy Unknown UNKNOWN Verified 11/27/21 13:27 Penicillins Allergy Unknown UNKNOWN Verified 11/27/21 13:27 Review of Systems Review of Systems: Yes all other systems are reviewed and are negative FOR[facility]LY [facility] Past Medical History Medical History Depression with anxiety Dysphagia Erosive esophagitis GERD (gastroesophageal reflux disease) Hiatal hernia Hypothyroidism Left shoulder pain Mild asthma Mild cognitive impairment Mild recurrent major depression Obese GILDA (obstructive sleep apnea) Pure hypercholesterolemia Surgical History H/O colonoscopy History of benign ovarian tumor History of esophagogastroduodenoscopy (EGD) Family History Family History Mother Diabetes Hypertension Stroke Father Lung cancer Social History Social History Household Members: Family Household Members Other:: daughter lives downstairs Housing: House Are you a primary critical care transport nurse to a significant other at home: No Do you presently have visiting nurse or other home services: Yes Alcohol intake: never Patient Tobacco Use Status: Never used Tobacco e-Cigarette/Vaping Use: Never Used Second Hand Smoke Exposure: Yes Advance Directives: Yes Advance Directives on File: Yes Advance Directives Date on File: 04/03/20 service: No Current occupational status: retired Current occupation: right handed Cognitive needs: Yes Hearing needs: No Vision needs: No Physical Exam Vital Signs: Vital Signs: Last Vital Signs Temp 97.6 F 01/15/22 06:18 Pulse 80 01/15/22 06:18 Resp 17 01/15/22 06:18 BP 148/67 H 01/15/22 06:18 Pulse Ox 95 01/15/22 06:18 O2 Del Method 01/15/22 06:18 BMI result Body Mass Index 37.8 Appearance: Alert. Oriented X3. No acute distress. Obese Eyes: PERRLA, No Nystagmus ENT: Pharynx normal. Oral Mucosa moist Neck: Normal inspection. Neck supple. CVS: Normal heart rate and rhythm. Pulses normal. Respiratory: No respiratory distress. Equal air entry bilateral, no wheezing/rales/rhonchi Abdomen: Soft , tenderness in the right upper quadrant with guarding no rebound tenderness Bowel sounds are present, no mass palpable, no CVA tenderness Skin: Skin warm and dry. Normal skin color. Normal skin turgor. Extremities: No lower extremity edema. No calf tenderness diffuse muscular tenderness right shoulder no signs of injury good range of movement Neuro: Oriented X 3. No motor deficit. No sensory deficit.No cerebellar signs , cranial nerves II-XII intact Course Reevaluation(s) Reevaluation #1: Patient with right upper quadrant pain with vomiting lab workup showed elevated LFTs tender to touch in right upper quadrant Jones sign positive will do CT scan to rule out CBD stone Time: 01:04 MDM - Nausea/Vomiting/Diarrhea MDM Narrative Medical decision making narrative: Patient with elevated liver enzymes with gallstones and shoulder pain likely the cause. Ultrasound negative for cholecystitis no severe dilatation. Will admit patient for acute elevation in LFTs and gallstones biliary colic for further investigation including HIDA scan/MRI case discussed with hospitalist for admission also patient has UTI will start patient on Rocephin Lab Data Attestation: I reviewed the patient's lab results. Result diagrams: 01/14/22 22:56 01/15/22 00:00 Labs: Lab Results 01/14/22 01/14/22 01/14/22 Range/Units 22:56 22:56 22:56 WBC 10.8 (4.8-10.8) X10*3/uL RBC 4.89 (4.20-5.50) X10*6/uL Hgb 13.6 (12.0-16.0) g/dl Hct 41.7 (37.0-47.0) % MCV 85.3 (80.0-98.0) fL MCH 27.8 (27.0-33.0) pg MCHC 32.6 (31.0-35.0) g/dl RDW 13.7 (11.0-16.0) % Plt Count 305 (160-400) X10*3/uL MPV 11.0 (9.4-12.3) fL Immature Gran % (Auto) 0.4 (0.0-0.4) % Neut % (Auto) 89.7 H (45-73) % Lymph % (Auto) 4.7 L (20-40) % [place] % (Auto) 4.4 (2-11) % Eos % (Auto) 0.3 (0-4) % Baso % (Auto) 0.5 (0-2) % Lymph # (Auto) 0.5 L (1.2-4.9) X10*3/uL [place] # (Auto) 0.5 (0.1-1.2) X10*3/uL Eos # (Auto) 0.0 (0.0-0.4) X10*3/uL Baso # (Auto) 0.1 (0.0-0.2) X10*3/uL Abs Immat Gran (auto) 0.04 H (0.00-0.03) X10*3/uL Absolute Neuts (auto) 9.7 H (2.0-8.3) x10*3/uL Absolute Nucleated RBC 0.000 (0.0-0.012) X10*3/uL Nucleated RBC % (auto) 0.0 (0.0-0.2) /100WBC Sodium (135-145) mmol/L Potassium (3.3-5.1) mmol/L Chloride (96-108) mmol/L Carbon Dioxide (22-29) mmol/L Anion Gap (12-20) BUN (9-16) mg/dL Creatinine (0.5-1.4) mg/dL Estim Creat Clear Calc Estimated GFR Random Glucose (60-115) mg/dL Lactic Acid 1.3 (0.5-2.0) mmol/L Calcium (8.4-10.2) mg/dL Total Bilirubin (0.0-1.0) mg/dL AST (5-31) U/L ALT (0-31) U/L Alkaline Phosphatase (39-117) U/L Total Protein (6.5-8.0) g/dL Albumin (3.5-5.0) g/dL Lipase (8-78) U/L Urine Color Urine Appearance Urine pH (5.0-9.0) Ur Specific [place] (1.005-1.025) Urine Protein (Neg-Trace) mg/dL Urine Glucose (UA) (Negative) mg/dL Urine Ketones (Negative) mg/dL Urine Blood (Negative) Urine Nitrite (Negative) Ur Leukocyte Esterase (Negative) Urine RBC (0-2) /HPF Urine WBC (0-5) /HPF Ur Squamous Epith Cells (0-2) /HPF Calcium Oxalate Crystal Urine Bacteria (None Seen) Hyaline Casts COVID-19 (ANEL) Negative (Negative) COVID-19 Clin Com See Note 01/15/22 01/15/22 Range/Units 00:00 03:19 WBC (4.8-10.8) X10*3/uL RBC (4.20-5.50) X10*6/uL Hgb (12.0-16.0) g/dl Hct (37.0-47.0) % MCV (80.0-98.0) fL MCH (27.0-33.0) pg MCHC (31.0-35.0) g/dl RDW (11.0-16.0) % Plt Count (160-400) X10*3/uL MPV (9.4-12.3) fL Immature Gran % (Auto) (0.0-0.4) % Neut % (Auto) (45-73) % Lymph % (Auto) (20-40) % [place] % (Auto) (2-11) % Eos % (Auto) (0-4) % Baso % (Auto) (0-2) % Lymph # (Auto) (1.2-4.9) X10*3/uL [place] # (Auto) (0.1-1.2) X10*3/uL Eos # (Auto) (0.0-0.4) X10*3/uL Baso # (Auto) (0.0-0.2) X10*3/uL Abs Immat Gran (auto) (0.00-0.03) X10*3/uL Absolute Neuts (auto) (2.0-8.3) x10*3/uL Absolute Nucleated RBC (0.0-0.012) X10*3/uL Nucleated RBC % (auto) (0.0-0.2) /100WBC Sodium 139 (135-145) mmol/L Potassium 4.5 (3.3-5.1) mmol/L Chloride 100 (96-108) mmol/L Carbon Dioxide 23 (22-29) mmol/L Anion Gap 21 H (12-20) BUN 19 H (9-16) mg/dL Creatinine 0.93 (0.5-1.4) mg/dL Estim Creat Clear Calc 54.4 Estimated GFR 59 Random Glucose 273 H (60-115) mg/dL Lactic Acid (0.5-2.0) mmol/L Calcium 9.5 (8.4-10.2) mg/dL Total Bilirubin 3.1 H (0.0-1.0) mg/dL AST 508 H (5-31) U/L ALT 562 H (0-31) U/L Alkaline Phosphatase 342 H D (39-117) U/L Total Protein 7.0 (6.5-8.0) g/dL Albumin 4.1 (3.5-5.0) g/dL Lipase 15 (8-78) U/L Urine Color Yellow Urine Appearance Hazy Urine pH 6.5 (5.0-9.0) Ur Specific [place] 1.025 (1.005-1.025) Urine Protein Negative (Neg-Trace) mg/dL Urine Glucose (UA) Negative (Negative) mg/dL Urine Ketones 15 (Negative) mg/dL Urine Blood Negative (Negative) Urine Nitrite Positive H (Negative) Ur Leukocyte Esterase Negative (Negative) Urine RBC 0-2 (0-2) /HPF Urine WBC 0-5 (0-5) /HPF Ur Squamous Epith Cells 6-10 (0-2) /HPF Calcium Oxalate Crystal Present Urine Bacteria 4+ (None Seen) Hyaline Casts Not Reportable COVID-19 (ANEL) (Negative) COVID-19 Clin Com Discharge Plan Discharge Clinical Impression: Biliary colic, Elevated LFTs Patient Disposition: Admitted As Inpatient
[2022-01-14] MEDS: 0.9 % Sodium Chloride 1,000 ML 999 ML IV (22:59)
[2022-01-14 23:04] LABS: MANUAL DIFF FLAG NO
[2022-01-14 23:05] LABS: Basophils Absolute Auto 0.1 X10*3/uL (0.0-0.2); Basophils Percent Auto 0.5 % (0-2); Eosinophils Percent Auto 0.3 % (0-4); Hematocrit 41.7 % (37.0-47.0); Hemoglobin 13.6 g/dl (12.0-16.0); Imm Gran Abs Auto 0.04 X10*3/uL (0.00-0.03); Imm Gran Pct Auto 0.4 % (0.0-0.4); Lymphocytes Absolute Auto 0.5 X10*3/uL (1.2-4.9); Lymphocytes Percent Auto 4.7 % (20-40); Mean Corpuscular HGB Conc 32.6 g/dl (31.0-35.0); Mean Corpuscular Hemoglobin 27.8 pg (27.0-33.0); Mean Corpuscular Volume 85.3 fL (80.0-98.0); Monocytes Absolute Auto 0.5 X10*3/uL (0.1-1.2); Monocytes Percent Auto 4.4 % (2-11); Neutrophils Absolute Auto 9.7 x10*3/uL (2.0-8.3); Neutrophils Percent Auto 89.7 % (45-73); Platelet Count 305 X10*3/uL (160-400); Red Blood Count 4.89 X10*6/uL (4.20-5.50); Red Cell Distribution Width 13.7 % (11.0-16.0); White Blood Count 10.8 X10*3/uL (4.8-10.8)
[2022-01-14 23:20] LABS: COVID-19 Test Negative (Negative)
[2022-01-14 23:22] LABS: Lactic Acid 1.3 mmol/L (0.5-2.0)
[2022-01-15 00:19] VITALS: RESP 16
[2022-01-15] MEDS: Morphine Sulfate 4 MG/ML CARTRIDGE IVPUSH (00:19)
[2022-01-15 00:31] LABS: Alanine Aminotransferase 562 U/L (0-31); Albumin Level 4.1 g/dL (3.5-5.0); Alkaline Phosphatase 342 U/L (39-117); Anion Gap 21 (12-20); Aspartate Amino Transferase 508 U/L (5-31); Bilirubin Total 3.1 mg/dL (0.0-1.0); Blood Urea Nitrogen 19 mg/dL (9-16); Calcium 9.5 mg/dL (8.4-10.2); Carbon Dioxide 23 mmol/L (22-29); Chloride 100 mmol/L (96-108); Creatinine Clr Calc Pharmacy 54.4; Estimated Glomerular Filt Rate 59; Glucose Random 273 mg/dL (60-115); Lipase 15 U/L (8-78); Potassium 4.5 mmol/L (3.3-5.1); Sodium 139 mmol/L (135-145)
[2022-01-15 00:52] VITALS: BP 133/52; PULSE 76; RESP 17; TEMP 36.4; O2SAT 96
[2022-01-15] MEDS: ondansetron HCL 4 MG/2 ML VIAL IVPUSH ×2 (03:09→11:59)
[2022-01-15 03:10] VITALS: RESP 14
[2022-01-15] MEDS: HYDROmorphone HCl 1 MG/ML SYRINGE IVPUSH (03:10)
[2022-01-15 03:26] LABS: Appearance Urine Hazy; Color Urine Yellow; Glucose Urine UA Negative (Negative); Leukocyte Esterase Urine Negative (Negative); Nitrite Urine Positive (Negative); PH 6.5 (5.0-9.0); Specific Gravity - Urine 1.025 (1.005-1.025); Urine Blood Negative (Negative); Urine Ketones 15 mg/dL (Negative); Urine Protein Negative (Neg-Trace)
[2022-01-15 03:35] LABS: Bacteria Urine 4+ (None Seen); RBC Urine 0-2 /HPF (0-2); UACC Culture Trigger YES; WBC Urine 0-5 /HPF (0-5)
[2022-01-15 03:36] LABS: Calcium Oxalate Crystals Urine Present
[2022-01-15 06:18] VITALS: BP 148/67; PULSE 80; RESP 17; TEMP 36.4; O2SAT 95
--- NOTE | 2022-01-15 06:31 | PC.NURSE ---
Per Dr. Meléndez Lactic 1.2, no blood cultures need to be drawn prior IV Ceftriaxone administration.
[2022-01-15] MEDS: cefTRIAXone sodium 1 GM in 0.9 % Sodium Chloride 50 ML IV (07:02)
--- NOTE | 2022-01-15 07:27 | PHA.MEDREC ---
Pharmacy Consult ? Medication Reconciliation Pharmacy has completed the medication reconciliation. Reviewed med rec done by nursing
[2022-01-15 08:33] VITALS: BP 138/68; PULSE 85; RESP 16; O2SAT 93
--- NOTE | 2022-01-15 09:13 | PM.EVENT ---
Event Note Date of Service: 01/15/22 Event Note: Attending Attestation: I have personally seen and examined the patient independently (on the date of service as documented by [facility]), reviewed the [facility]IKE history, exam and?MDM and agree with the assessment and plan as?written with the following additions and/or changes: 76 yo F who is a vague historian (history obtained from daughter via telephone). Pt with back pain which began 2 day prior to admission followed by nausea and vomiting with persistent pain the day prior to admission prompting ED visit. Work up in the ED showing hyperbilirubinemia + transaminitis. Imaging showing cholelithiasis without evidence of acute cholecystitis or choledocholithaisis. Clinically RUQ is minimal currently, but she does complain of persistent nausea. Will admit under obs, consult General surgery. Hold off on further imaging until seen by Gen surg. May need to consider GI consult if surgery does not feel this is biliary in nature. Remainder per H&P.
[2022-01-15 10:39] LABS: Estimated Average Glucose 163 mg/dL; Hemoglobin A1c % 7.3 %
[2022-01-15] MEDS: Morphine Sulfate 2 MG/ML CARTRIDGE IVPUSH (11:50)
[2022-01-15] MEDS: Enoxaparin Sodium 40 MG/0.4 ML SYRINGE SUBCUT (11:51)
--- NOTE | 2022-01-15 12:20 | PM.IMHP ---
History of Present Illness Date of Service: 01/15/22 Attending physician on admission: Devon Maldonado Chief Complaint: transaminitis, ruq pain 76 year old female with history of mild persistent asthma, hypothyroidism, gerd, hiatal hernia, bilateral calcific tendonitis, and urge incontinence presented to the ED this am for evaluation of midline back pain x2 days progress to n/v and nonradiating RUQ pain. Patient is somewhat poor historian and history partially taken from daughter, Jessy who is her HCP. Chemistries significant elevated LFTs- AST 508, ALT 562, Alk phos 342, Total bili 3.1. No hx liver disease. US RUQ shows cholelithiaiss without cholecystitis or obstruction. UA shows nitrite positive urine, started on ceftriaxine, culture pending. No leukocytosis. Afebrile. Vitals stable. Pt denies etoh or illicit durg use. Currently reporting 5/10 pain ruq non radiation with nausea and vomiting x1. No hematemasis. No fevers, chills, dysuria, hematuria, increased urinary frequency, diarrhea, constipation, melena, hematochezia, sob, cp. Review of Systems Review of Systems: General: No fevers, malaise, unintentional weight loss Cardiovascular: No chest pain, palpitations, or leg edema Respiratory: No shortness of breath, wheezing, cough GI: +RUQ pain, +N/V. No diarrhea, constipation, hemetemesis, melena, hematochezia : +urge incontinence. No dysuria, hematuria, increased frequency Neuro: No headaches, weakness, paresthesias Skin: No rashes or lesions [facility] Medical History (Updated 01/15/22 @ 12:26 by LUCI Knapp) Acute respiratory failure with hypoxia Colitis Colon cancer screening Depression with anxiety Dysphagia Erosive esophagitis GERD (gastroesophageal reflux disease) Hiatal hernia Hospital discharge follow-up Hypothyroidism Left shoulder pain Mild cognitive impairment Mild persistent asthma with (acute) exacerbation Mild recurrent major depression Morbid obesity Obesity (BMI 30-39.9) GILDA (obstructive sleep apnea) Pure hypercholesterolemia Toxic encephalopathy Family History Mother Diabetes Hypertension Stroke Father Lung cancer Surgical History H/O colonoscopy History of benign ovarian tumor History of esophagogastroduodenoscopy (EGD) Social History Household Members: Family Household Members Other:: daughter lives downstairs Housing: House Are you a primary rn progressive care unit to a significant other at home: No Do you presently have visiting nurse or other home services: Yes Alcohol intake: never Patient Tobacco Use Status: Never used Tobacco e-Cigarette/Vaping Use: Never Used Second Hand Smoke Exposure: Yes Advance Directives: Yes Advance Directives on File: Yes Advance Directives Date on File: 04/03/20 service: No Current occupational status: retired Current occupation: right handed Cognitive needs: Yes Hearing needs: No Vision needs: No Meds Allergies Allergy/AdvReac Type Severity Reaction Status Date / Time influenza virus vaccine, Allergy Severe SEVERE FLU Verified 11/27/21 13:27 specific SYMPTOMS [Influenza Virus Vacc,Specific] codeine [CODEINE] Allergy Intermediate NAUSEA & Verified 11/27/21 13:27 VOMITING Sulfa (Sulfonamide Allergy Intermediate Hives Verified 11/27/21 13:27 Antibiotics) amoxicillin [Amoxicillin] Allergy Unknown UNKNOWN Verified 11/27/21 13:27 Penicillins Allergy Unknown UNKNOWN Verified 11/27/21 13:27 Active Medications: Current Medications Enoxaparin Sodium (Enoxaparin Sodium 40 Mg/0.4 Ml Syringe) 40 mg SUBCUT Q24H [facility] Last Admin: 01/15/22 11:51 Dose: 40 mg Ceftriaxone Sodium 1 gm/ (Sodium Chloride) 50 mls @ 100 mls/hr IV Q24H [facility] Lactated Ringer's (Lr) 1,000 mls @ 100 mls/hr IVCONT .Q10H [facility] Stop: 01/16/22 12:29 Levothyroxine Sodium (Levothyroxine Sodium 75 Mcg Tablet) 75 mcg PO DAILY@0600 [facility] Mirabegron (Mirabegron 25 Mg Tab.Er.24h) 25 mg PO DAILY [facility] Morphine Sulfate (Morphine Sulfate 2 Mg/Ml Cartridge) 2 mg IVPUSH Q3H PRN; Protocol PRN Reason: Pain, Severe (Pain Scale 7-10) Last Admin: 01/15/22 11:50 Dose: 2 mg Non-Formulary Medication (Fluticasone Propionate [Flovent Hfa]) 1 puff INHALE BID [facility] Omeprazole (Omeprazole 20 Mg Capsule.) 20 mg PO DAILY@0630 [facility] Ondansetron HCl (Ondansetron Hcl 4 Mg/2 Ml Vial) 4 mg IVPUSH Q8H PRN PRN Reason: Nausea and Vomiting Last Admin: 01/15/22 11:59 Dose: 4 mg Sodium Chloride (0.9 % Sodium Chloride Flush 3 Ml Syringe) 3 ml IVFLUSH QSHIFT [facility] Home Medications Medication Instructions Recorded Confirmed Last Taken Type fluticasone propionate 44 1 puff inhalation BID 01/15/22 01/15/22 Unknown History mcg/actuation HFA aerosol inhaler (Flovent HFA) levothyroxine 75 mcg tablet 1 tab PO DAILY 01/15/22 01/15/22 Unknown History mirabegron 25 mg tablet,extended 1 tab PO DAILY 01/15/22 01/15/22 Unknown History release 24 hr (Myrbetriq) omeprazole 20 mg capsule,delayed 1 cap PO DAILY 01/15/22 01/15/22 Unknown History release Physical Exam Vital Signs and Narrative: Vital Signs: Last Vital Signs Temp 97.6 F 01/15/22 06:18 Pulse 85 01/15/22 08:33 Resp 16 01/15/22 08:33 BP 138/68 01/15/22 08:33 Pulse Ox 93 01/15/22 08:33 O2 Del Method 01/15/22 06:18 BMI result Body Mass Index 37.8 Constitutional - Awake and Alert, No apparent distress Eyes - PERRLA, EOMI Cardiovascular - S1S2, RRR, No edema Respiratory - Normal lung expansion, Normal respiratory effort, No respiratory distress, CTA bilaterally Gastrointestinal - Moderate RUQ pain, negative diaz sign. Mildly distended. +BS; No rebound or guarding. No asterixis - No CVA tenderness Extremities - no calf tenderness bilaterally, no swelling Skin - Warm/Dry Neurological - Alert & oriented x3, 5/5 strength BUE and BLE. CN II-XII in tact. No tremor Psychological - Appropriate affect Results Labs CBC and Chem 7: 01/14/22 22:56 01/15/22 00:00 Labs: Laboratory Results - last 24 hr 01/14/22 01/14/22 01/14/22 22:56 22:56 22:56 MCV 85.3 MCH 27.8 MCHC 32.6 RDW 13.7 Plt Count 305 MPV 11.0 Immature Gran % (Auto) 0.4 Neut % (Auto) 89.7 H Lymph % (Auto) 4.7 L [place] % (Auto) 4.4 Eos % (Auto) 0.3 Baso % (Auto) 0.5 Lymph # (Auto) 0.5 L [place] # (Auto) 0.5 Eos # (Auto) 0.0 Baso # (Auto) 0.1 Abs Immat Gran (auto) 0.04 H Absolute Neuts (auto) 9.7 H Absolute Nucleated RBC 0.000 Nucleated RBC % (auto) 0.0 Anion Gap Estim Creat Clear Calc Estimated GFR Random Glucose Estimat Average Glucose Hemoglobin A1c % Lactic Acid 1.3 Calcium Total Bilirubin AST ALT Alkaline Phosphatase Total Protein Albumin Lipase Urine Color Urine Appearance Urine pH Ur Specific Hana Urine Protein Urine Glucose (UA) Urine Ketones Urine Blood Urine Nitrite Ur Leukocyte Esterase Urine RBC Urine WBC Ur Squamous Epith Cells Calcium Oxalate Crystal Urine Bacteria Hyaline Casts COVID-19 (ANEL) Negative COVID-19 Clin Com See Note 01/14/22 01/15/22 01/15/22 22:56 00:00 03:19 MCV MCH MCHC RDW Plt Count MPV Immature Gran % (Auto) Neut % (Auto) Lymph % (Auto) [place] % (Auto) Eos % (Auto) Baso % (Auto) Lymph # (Auto) [place] # (Auto) Eos # (Auto) Baso # (Auto) Abs Immat Gran (auto) Absolute Neuts (auto) Absolute Nucleated RBC Nucleated RBC % (auto) Anion Gap 21 H Estim Creat Clear Calc 54.4 Estimated GFR 59 Random Glucose 273 H Estimat Average Glucose 163 Hemoglobin A1c % 7.3 Lactic Acid Calcium 9.5 Total Bilirubin 3.1 H AST 508 H ALT 562 H Alkaline Phosphatase 342 H D Total Protein 7.0 Albumin 4.1 Lipase 15 Urine Color Yellow Urine Appearance Hazy Urine pH 6.5 Ur Specific Hana 1.025 Urine Protein Negative Urine Glucose (UA) Negative Urine Ketones 15 Urine Blood Negative Urine Nitrite Positive H Ur Leukocyte Esterase Negative Urine RBC 0-2 Urine WBC 0-5 Ur Squamous Epith Cells 6-10 Calcium Oxalate Crystal Present Urine Bacteria 4+ Hyaline Casts Not Reportable COVID-19 (ANEL) COVID-19 Clin Com Imaging Radiologist's Impressions: Impressions Chest X-Ray 01/14/22 22:35 IMPRESSION: No dense consolidation. Bronchial wall thickening can be seen with a small airways process such as asthma or atypical/viral infection. Abdomen/Pelvis CT 01/15/22 01:32 IMPRESSION: 1. No biliary ductal dilatation or appreciable choledocholithiasis. If clinically warranted, this may be more definitively assessed with MRCP. 2. Colonic diverticulosis without convincing diverticulitis. Abdomen Ultrasound 01/15/22 03:45 IMPRESSION: 1. Cholelithiasis without additional findings of cholecystitis. 2. Hepatic steatosis. Assessment and Plan (1) Elevated LFTs: Status: Acute (2) Biliary colic: Status: Acute Plan 76 year old female with history of mild persistent asthma, hypothyroidism, gerd, hiatal hernia, bilateral calcific tendonitis, and urge incontinence to be obsesrved for elevated LFTs and biliary colic. 1- Acute Biliary colic with elevated LFTs -AST 508, ALT 562, Alk phos 342, Total bili 3.1 -US/CT abd/pelvis with cholelithiasis but no obstruction or cholecystitis -Gen surgery consulted to evmaria luisa for cholecystectomy. Otherwise can consider GI referral, possible MRCP -PRN ondansetron for n/v -Clear liquids -IV LR x24 hr -Follow LFTs 2-Acute UTI -US showed positive nitrites, 4+ bacteria, neg leuks, neg blood. UC pending -No leukocytosis. Afebrile -IV ceftriaxone -Purewick in place with frothing dark yellow/orange urine 3-Mild persistent asthma without acute exacerbation -Continue flovent -ALbuterol neb prn 4-Hypothyroidism- stable -Continue levothyroxine 5-GERD- stable -EGD 07/01 with strictures with balloon dilitation -Continiue omeprazole DVT prophylaxis- lovenox Full code Quality Stroke Does the patient have a stroke diagnosis?: No VTE Prior VTE?: No VTE Risk Level:: Medical - moderate - high VTE Device Contraindication: Treatment Not Indicated VTE Drug Contraindication: N/A - Med Ordered
[2022-01-15 14:47] VITALS: BP 104/86; PULSE 85; RESP 18; TEMP 36.9; O2SAT 93
--- NOTE | 2022-01-15 15:04 | PM.CNGS ---
History of Present Illness Consult details Consult date: 01/16/22 Narrative: 76-year-old female who was brought the ER this morning because of what she described as for abdominal pain. She states that this she does not really recall much with regards to the details anymore but she remembers having some back pain yesterday. She says that she had notice some upper abdominal pain mostly in the epigastric area as well. She denies any nausea or vomiting. Because of the persistence of her pain in the upper abdomen, she was brought to the ER this morning She currently says she has some ?mild pain?. She says that she does not want to be admitted and was saying that she should be able to go home. Her son, Pedro was with her during the interview. He answered most of the questions. He says that the patient lives alone but is in the same building as of 1 of her daughters. Review of Systems Constitutional: Constitutional: Denies chills and Denies fever(s) Cardiovascular: Cardiovascular: Denies chest pain, Denies dyspnea and Reports dyspnea on exertion Respiratory: Respiratory: Denies cough, Denies dyspnea and Reports dyspnea on exertion Gastrointestinal: Gastrointestinal: Denies hematochezia and Denies change in bowel habits Genitourinary: Genitourinary: Denies hematuria Musculoskeletal: Musculoskeletal: Denies back pain and Denies limited range of motion Neurologic: Denies focal weakness and Denies convulsions Psychiatric: Psychiatric: Denies depression and Denies mood swings PMFSH Past Medical History Medical History Acute respiratory failure with hypoxia Colitis Colon cancer screening Depression with anxiety Dysphagia Erosive esophagitis GERD (gastroesophageal reflux disease) Hiatal hernia Hospital discharge follow-up Hypothyroidism Ileus Left shoulder pain Mild cognitive impairment Mild persistent asthma with (acute) exacerbation Mild recurrent major depression Morbid obesity Obesity (BMI 30-39.9) GILDA (obstructive sleep apnea) Pure hypercholesterolemia Respiratory distress Toxic encephalopathy Family History Family History Mother Diabetes Hypertension Stroke Father Lung cancer Surgical History Surgical History H/O colonoscopy History of benign ovarian tumor History of esophagogastroduodenoscopy (EGD) Social History Social History Household Members: None Household Members Other:: daughter lives downstairs Housing: House Are you a primary home care companion to a significant other at home: No Do you presently have visiting nurse or other home services: Yes (Pt) Alcohol intake: never Patient Tobacco Use Status: Never used Tobacco e-Cigarette/Vaping Use: Never Used Second Hand Smoke Exposure: Yes Advance Directives Date on File: 04/03/20 service: No Current occupational status: retired Current occupation: right handed Cognitive needs: Yes Hearing needs: No Vision needs: No Meds Allergies Allergy/AdvReac Type Severity Reaction Status Date / Time influenza virus vaccine, Allergy Severe SEVERE FLU Verified 11/27/21 13:27 specific SYMPTOMS [Influenza Virus Vacc,Specific] Sulfa (Sulfonamide Allergy Intermediate Hives Verified 11/27/21 13:27 Antibiotics) amoxicillin [Amoxicillin] Allergy Unknown UNKNOWN Verified 11/27/21 13:27 Penicillins Allergy Unknown UNKNOWN Verified 11/27/21 13:27 codeine [CODEINE] AdvReac Intermediate NAUSEA & Verified 01/24/22 10:32 VOMITING Active Medications: Current Medications Enoxaparin Sodium (Enoxaparin Sodium 40 Mg/0.4 Ml Syringe) 40 mg SUBCUT Q24H [facility] Last Admin: 01/15/22 11:51 Dose: 40 mg Ceftriaxone Sodium 1 gm/ (Sodium Chloride) 50 mls @ 100 mls/hr IV Q24H [facility] Lactated Ringer's (Lr) 1,000 mls @ 100 mls/hr IVCONT .Q10H [facility] Stop: 01/16/22 12:29 Levothyroxine Sodium (Levothyroxine Sodium 75 Mcg Tablet) 75 mcg PO DAILY@0600 [facility] Mirabegron (Mirabegron 25 Mg Tab.Er.24h) 25 mg PO DAILY [facility] Morphine Sulfate (Morphine Sulfate 2 Mg/Ml Cartridge) 2 mg IVPUSH Q3H PRN; Protocol PRN Reason: Pain, Severe (Pain Scale 7-10) Last Admin: 01/15/22 11:50 Dose: 2 mg Non-Formulary Medication (Fluticasone Propionate [Flovent Hfa]) 1 puff INHALE BID [facility] Omeprazole (Omeprazole 20 Mg Capsule.Dr) 20 mg PO DAILY@0630 [facility] Ondansetron HCl (Ondansetron Hcl 4 Mg/2 Ml Vial) 4 mg IVPUSH Q8H PRN PRN Reason: Nausea and Vomiting Last Admin: 01/15/22 11:59 Dose: 4 mg Sodium Chloride (0.9 % Sodium Chloride Flush 3 Ml Syringe) 3 ml IVFLUSH [facility] Home Medications Medication Instructions Recorded Confirmed Last Taken Type fluticasone propionate 44 1 puff inhalation BID 01/15/22 01/15/22 Unknown History mcg/actuation HFA aerosol inhaler (Flovent HFA) levothyroxine 75 mcg tablet 1 tab PO DAILY 01/15/22 01/15/22 Unknown History mirabegron 25 mg tablet,extended 1 tab PO DAILY 01/15/22 01/15/22 Unknown History release 24 hr (Myrbetriq) omeprazole 20 mg capsule,delayed 1 cap PO DAILY 01/15/22 01/15/22 Unknown History release Physical Exam Vital Signs: Vital Signs: Last Vital Signs Temp 98.5 F 01/15/22 14:47 Pulse 85 01/15/22 14:47 Resp 18 01/15/22 14:47 BP 104/86 01/15/22 14:47 Pulse Ox 93 01/15/22 14:47 O2 Del Method 01/15/22 14:47 BMI result Body Mass Index 37.8 Const: Other: Appears obese, anxious General: no acute distress Orientation/consciousness: patient oriented x3 Neck: Neck: Yes no lymphadenopathy Resp: Auscultation: clear to auscultation bilaterally Cardio: Rhythm: regular rhythm GI: Other: Minimal tenderness on the epigastric area, no Jones's sign Palpation (GI): Soft to palpation, nontender and no guarding Neuro: General: patient oriented x3 Results Labs Result diagrams: 01/22/22 09:02 01/24/22 09:20 Labs: Abnormal lab results 01/14/22 01/15/22 01/15/22 Range/Units 22:56 00:00 03:19 Neut % (Auto) 89.7 H (45-73) % Lymph % (Auto) 4.7 L (20-40) % Lymph # (Auto) 0.5 L (1.2-4.9) X10*3/uL Abs Immat Gran (auto) 0.04 H (0.00-0.03) X10*3/uL Absolute Neuts (auto) 9.7 H (2.0-8.3) x10*3/uL Anion Gap 21 H (12-20) BUN 19 H (9-16) mg/dL Random Glucose 273 H (60-115) mg/dL Total Bilirubin 3.1 H (0.0-1.0) mg/dL AST 508 H (5-31) U/L ALT 562 H (0-31) U/L Alkaline Phosphatase 342 H D (39-117) U/L Urine Nitrite Positive H (Negative) Short CBC 01/14/22 Range/Units 22:56 WBC 10.8 (4.8-10.8) X10*3/uL Hgb 13.6 (12.0-16.0) g/dl Hct 41.7 (37.0-47.0) % Plt Count 305 (160-400) X10*3/uL BMP 01/15/22 00:00 Sodium 139 Potassium 4.5 Chloride 100 Carbon Dioxide 23 BUN 19 H Creatinine 0.93 Calcium 9.5 Liver Function 01/15/22 Range/Units 00:00 Total Bilirubin 3.1 H (0.0-1.0) mg/dL AST 508 H (5-31) U/L ALT 562 H (0-31) U/L Alkaline Phosphatase 342 H D (39-117) U/L Albumin 4.1 (3.5-5.0) g/dL Urine 01/15/22 Range/Units 03:19 Urine Color Yellow Urine Appearance Hazy Urine pH 6.5 (5.0-9.0) Ur Specific Orange 1.025 (1.005-1.025) Urine Protein Negative (Neg-Trace) mg/dL Urine Glucose (UA) Negative (Negative) mg/dL All other labs normal. Assessment and Plan (1) Elevated LFTs: Status: Acute Her ultrasound shows gallstones without cholecystitis. Her CAT scan shows no signs of acute cholecystitis and no evidence of biliary ductal dilatation. However, she has elevated LFTs and bilirubin adjusted of a CBD stone. She currently very benign exam. I would recommend as consult with the ground products director for possible ERCP. They may ask for an MRCP prior to that. Her LFTs should be followed closely. I have discussed the above with the patient and her son at bedside. I will follow along closely while she is in the hospital. We can also discuss the option of proceeding with cholecystectomy down the line if this turns out to be a CBD stone from the gallbladder. The patient does not appear to have acute cholecystitis clinically at this time. Procedures Date of Service Date of Service: 01/16/22
[2022-01-15] MEDS: Lactated Ringers 1,000 ML 100 ML IVCONT (17:57)
--- NOTE | 2022-01-15 20:13 | MHC.CM.PN ---
IMM 01/15. CM met with admitted patient with bed assignment pending. A&Ox4. Lives in 2 family home, with daughter living on first floor. Uses a walker and private pays for PT/wellness trainer. Refuses Covid vaccinations. States she is allergic. is a vet. Pt has no services. HCP on file. HCP/daughter Jessy Hunt([phone]). D/C plan: Home without services. Pt will arrange transport home. CM to follow for d/c needs.
[2022-01-16] VITALS (8 sets, daily range): BP systolic 108–140; BP diastolic 58–75; PULSE 73–87; RESP 16–20; TEMP 36.7–37.1; O2SAT 91–95
[2022-01-16] MEDS: Lactated Ringers 1,000 ML 100 ML IVCONT (00:09)
[2022-01-16 06:23] LABS: Hematocrit 41.4 % (37.0-47.0); Mean Corpuscular HGB Conc 31.4 g/dl (31.0-35.0); Mean Corpuscular Hemoglobin 27.2 pg (27.0-33.0); Mean Corpuscular Volume 86.6 fL (80.0-98.0); Mean Platelet Volume 10.9 fL (9.4-12.3); Platelet Count 263 X10*3/uL (160-400); Red Blood Count 4.78 X10*6/uL (4.20-5.50); White Blood Count 10.1 X10*3/uL (4.8-10.8)
[2022-01-16] MEDS: cefTRIAXone sodium 1 GM in 0.9 % Sodium Chloride 50 ML IV (06:24)
[2022-01-16] MEDS: Levothyroxine Sodium 75 MCG TABLET PO (06:25)
[2022-01-16] MEDS: Omeprazole 20 MG CAPSULE.DR PO (06:25)
[2022-01-16 07:16] LABS: Alanine Aminotransferase 529 U/L (0-31); Albumin Level 3.7 g/dL (3.5-5.0); Alkaline Phosphatase 350 U/L (39-117); Anion Gap 18 (12-20); Aspartate Amino Transferase 331 U/L (5-31); Bilirubin Total 1.9 mg/dL (0.0-1.0); Blood Urea Nitrogen 14 mg/dL (9-16); Calcium 8.6 mg/dL (8.4-10.2); Carbon Dioxide 24 mmol/L (22-29); Chloride 101 mmol/L (96-108); Creatinine Clr Calc Pharmacy 67.5; Estimated Glomerular Filt Rate > 60; Glucose Random 174 mg/dL (60-115); Potassium 4.2 mmol/L (3.3-5.1); Sodium 139 mmol/L (135-145); Total Protein 6.4 g/dL (6.5-8.0)
--- NOTE | 2022-01-16 08:27 | P.PNGS_ITS ---
Subjective Subjective Date of Service: 01/16/22 Interval history: States that she is ?okay? Denies abdominal pain No vomiting Physical Exam Vital Signs: Vital Signs: Last Vital Signs Temp 98.5 F 01/15/22 14:47 Pulse 79 01/16/22 08:16 Resp 18 01/16/22 08:16 BP 124/71 01/16/22 06:00 Pulse Ox 94 01/16/22 06:00 O2 Del Method 01/16/22 06:00 BMI result Body Mass Index 37.8 Const: General: no acute distress Resp: Effort & Inspection: normal respiratory effort Cardio: Rate: regular rate GI: Other: Obese, soft, mild tenderness on the epigastric area with no guarding rebound, no Jones's sign Objective Data Active Medications Enoxaparin Sodium (Enoxaparin Sodium 40 Mg/0.4 Ml Syringe) 40 mg SUBCUT Q24H [facility] Last Admin: 01/15/22 11:51 Dose: 40 mg Documented By: ELLE Ceftriaxone Sodium 1 gm/ (Sodium Chloride) 50 mls @ 100 mls/hr IV Q24H [facility] Last Infusion: 01/16/22 07:02 Dose: 0 mls/hr Documented By: SONYA Lactated Ringer's (Lr) 1,000 mls @ 100 mls/hr IVCONT .Q10H [facility] Stop: 01/16/22 12:29 Last Admin: 01/16/22 00:09 Dose: 100 mls/hr Documented By: ROSITA Levothyroxine Sodium (Levothyroxine Sodium 75 Mcg Tablet) 75 mcg PO DAILY@0600 [facility] Last Admin: 01/16/22 06:25 Dose: 75 mcg Documented By: SONYA Mirabegron (Mirabegron 25 Mg Tab.Er.24h) 25 mg PO DAILY [facility] Morphine Sulfate (Morphine Sulfate 2 Mg/Ml Cartridge) 2 mg IVPUSH Q3H PRN; Protocol PRN Reason: Pain, Severe (Pain Scale 7-10) Last Admin: 01/15/22 11:50 Dose: 2 mg Documented By: ELLE Pt Own (Fluticasone Propionate [Flovent Hfa] 44 Mcg/Actuation Hfa Aeroso 1 puff INHALE RBID [facility] Last Admin: 01/16/22 08:14 Dose: 1 puff Documented By: PAKO Omeprazole (Omeprazole 20 Mg Capsule.Dr) 20 mg PO DAILY@06 [facility] Last Admin: 01/16/22 06:25 Dose: 20 mg Documented By: SONYA Ondansetron HCl (Ondansetron Hcl 4 Mg/2 Ml Vial) 4 mg IVPUSH Q8H PRN PRN Reason: Nausea and Vomiting Last Admin: 01/15/22 11:59 Dose: 4 mg Documented By: ELLE Sodium Chloride (0.9 % Sodium Chloride Flush 3 Ml Syringe) 3 ml IVFLUSH QSHIFT [facility] Last Admin: 01/16/22 00:26 Dose: Not Given Documented By: ROSITA Non-Admin Reason: IV Running Labs CBC & Chem 7: 01/16/22 05:45 01/16/22 05:45 Labs: Laboratory Results - last 24 hr 01/14/22 01/16/22 01/16/22 22:56 05:45 05:45 MCV 86.6 MCH 27.2 MCHC 31.4 RDW 14.0 Plt Count 263 MPV 10.9 Absolute Nucleated RBC 0.000 Nucleated RBC % (auto) 0.0 Anion Gap 18 Estim Creat Clear Calc 67.5 Estimated GFR > 60 Random Glucose 174 H Estimat Average Glucose 163 Hemoglobin A1c % 7.3 Calcium 8.6 D Total Bilirubin 1.9 H AST 331 H ALT 529 H Alkaline Phosphatase 350 H Total Protein 6.4 L Albumin 3.7 Procedures Date of Service Date of Service: 01/16/22 Progress Note: A&P Assessment and plan (1) Elevated LFTs: Status: Acute Assessment and Plan: Consistent with CBD stone LFTs have trended down Gastroenterology consult pending Possible ERCP Discussed option of cholecystectomy down the line, whether after discharge or as an inpatient Exam otherwise benign Time Spent With Patient Time: Total time spent is greater than 50% in coordination of care (as documented) at patient's floor/unit and/or counseling patient: Quality Stroke Does the patient have a stroke diagnosis?: No VTE Prior VTE?: No VTE Risk Level:: Medical - moderate - high VTE Device Contraindication: Treatment Not Indicated VTE Drug Contraindication: N/A - Med Ordered
--- NOTE | 2022-01-16 09:35 | P.CNGI_ITS ---
History of Present Illness Data of Consult Service Date: 01/16/22 Requesting physician: Devon Maldonado Primary Care Provider: Shania Edmonds MD HPI Reason for consult: abn lft 76 year old female with history of mild persistent asthma, hypothyroidism, gerd, hiatal hernia, bilateral calcific tendonitis, and urge incontinence who I am seeing for assessment for abn LFT She initially presented with 5/10 crampy RUQ pain without radiaiton for 2 d with nausea and non bloody emesis. Pain is now 3-4/10 and better, she is hungry and has an appetite, managing jello. Has this pain on and off over last 3 months but this is worst attack, does not believe it is worse with food or relieved by any thing. Initial labs with elevated LFTs- AST 508, ALT 562, Alk phos 342, Total bili 3.1. These have been trending down with Bili now 1.9, AST 331, ALT 529 and alk phos 350. . UA was also pos for nitrites and she admitted to urine frequency. Imaging: US RUQ shows cholelithiaiss without cholecystitis or obstruction MRCP - official report pending, but per my own read no CBD strictures or filling defects. Review of Systems Review of Systems: General: No fevers, malaise, unintentional weight loss Cardiovascular: No chest pain, palpitations, or leg edema Respiratory: No shortness of breath, wheezing, cough GI: +RUQ pain, +N/V. No diarrhea, constipation, hemetemesis, melena, hematochezia : +urge incontinence. No dysuria, hematuria, increased frequency Neuro: No headaches, weakness, paresthesias Skin: No rashes or lesions Psychiatric: Psychiatric: Reports no additional psychiatric complaints Hematologic/Lymphatic: Hematologic/Lymphatic: Reports no additional hematolog ic/lymphatic complaints Allergic/Immunologic: Allergic/Immunologic: Reports no additional allergic/immunologic complaints PMFSH Past Medical History Medical History Acute respiratory failure with hypoxia Colitis Colon cancer screening Depression with anxiety Dysphagia Erosive esophagitis GERD (gastroesophageal reflux disease) Hiatal hernia Hospital discharge follow-up Hypothyroidism Left shoulder pain Mild cognitive impairment Mild persistent asthma with (acute) exacerbation Mild recurrent major depression Morbid obesity Obesity (BMI 30-39.9) GILDA (obstructive sleep apnea) Pure hypercholesterolemia Toxic encephalopathy Family History Family History Mother Diabetes Hypertension Stroke Father Lung cancer Surgical History Surgical History H/O colonoscopy History of benign ovarian tumor History of esophagogastroduodenoscopy (EGD) Social History Social History Household Members: None Household Members Other:: daughter lives downstairs Housing: House Are you a primary dialysis patient care technician to a significant other at home: No Do you presently have visiting nurse or other home services: Yes (Pt) Alcohol intake: never Patient Tobacco Use Status: Never used Tobacco e-Cigarette/Vaping Use: Never Used Second Hand Smoke Exposure: Yes Advance Directives Date on File: 04/03/20 service: No Current occupational status: retired Current occupation: right handed Cognitive needs: Yes Hearing needs: No Vision needs: No Meds Allergies Allergy/AdvReac Type Severity Reaction Status Date / Time influenza virus vaccine, Allergy Severe SEVERE FLU Verified 11/27/21 13:27 specific SYMPTOMS [Influenza Virus Vacc,Specific] codeine [CODEINE] Allergy Intermediate NAUSEA & Verified 11/27/21 13:27 VOMITING Sulfa (Sulfonamide Allergy Intermediate Hives Verified 11/27/21 13:27 Antibiotics) amoxicillin [Amoxicillin] Allergy Unknown UNKNOWN Verified 11/27/21 13:27 Penicillins Allergy Unknown UNKNOWN Verified 11/27/21 13:27 Active Medications: Current Medications Enoxaparin Sodium (Enoxaparin Sodium 40 Mg/0.4 Ml Syringe) 40 mg SUBCUT Q24H [facility] Last Admin: 01/15/22 11:51 Dose: 40 mg Ceftriaxone Sodium 1 gm/ (Sodium Chloride) 50 mls @ 100 mls/hr IV Q24H [facility] Last Infusion: 01/16/22 07:02 Dose: Infused Lactated Ringer's (Lr) 1,000 mls @ 100 mls/hr IVCONT .Q10H [facility] Stop: 01/16/22 12:29 Last Admin: 01/16/22 00:09 Dose: 100 mls/hr Levothyroxine Sodium (Levothyroxine Sodium 75 Mcg Tablet) 75 mcg PO DAILY@0600 [facility] Last Admin: 01/16/22 06:25 Dose: 75 mcg Mirabegron (Mirabegron 25 Mg Tab.Er.24h) 25 mg PO DAILY [facility] Morphine Sulfate (Morphine Sulfate 2 Mg/Ml Cartridge) 2 mg IVPUSH Q3H PRN; Protocol PRN Reason: Pain, Severe (Pain Scale 7-10) Last Admin: 01/15/22 11:50 Dose: 2 mg Pt Own (Fluticasone Propionate [Flovent Hfa] 44 Mcg/Actuation Hfa Aeroso 1 puff INHALE RBID [facility] Last Admin: 01/16/22 08:14 Dose: 1 puff Omeprazole (Omeprazole 20 Mg Capsule.Dr) 20 mg PO DAILY@0630 [facility] Last Admin: 01/16/22 06:25 Dose: 20 mg Ondansetron HCl (Ondansetron Hcl 4 Mg/2 Ml Vial) 4 mg IVPUSH Q8H PRN PRN Reason: Nausea and Vomiting Last Admin: 01/15/22 11:59 Dose: 4 mg Sodium Chloride (0.9 % Sodium Chloride Flush 3 Ml Syringe) 3 ml IVFLUSH QSHIFT [facility] Last Admin: 01/16/22 09:31 Dose: Not Given Home Medications Medication Instructions Recorded Confirmed Last Taken Type fluticasone propionate 44 1 puff inhalation BID 01/15/22 01/15/22 Unknown History mcg/actuation HFA aerosol inhaler (Flovent HFA) levothyroxine 75 mcg tablet 1 tab PO DAILY 01/15/22 01/15/22 Unknown History mirabegron 25 mg tablet,extended 1 tab PO DAILY 01/15/22 01/15/22 Unknown History release 24 hr (Myrbetriq) omeprazole 20 mg capsule,delayed 1 cap PO DAILY 01/15/22 01/15/22 Unknown History release Physical Exam Vital Signs: Vital Signs: Last Vital Signs Temp 98.5 F 01/15/22 14:47 Pulse 79 01/16/22 08:16 Resp 18 01/16/22 08:16 BP 124/71 01/16/22 06:00 Pulse Ox 94 01/16/22 06:00 O2 Del Method 01/16/22 06:00 BMI result Body Mass Index 37.8 Const: Other: Appears obese, anxious General: no acute distress Orientation/consciousness: patient oriented x3 Neck: Neck: Yes no lymphadenopathy Resp: Effort & Inspection: normal respiratory effort Auscultation: clear to auscultation bilaterally Cardio: Rate: regular rate Rhythm: regular rhythm GI: Inspection: Yes normal to inspection Palpation (GI): Soft to palpation, Tenderness to palpation present (GI) in the RUQ and no guarding Skin: General skin exam: no rashes or lesions noted Neuro: General: patient oriented x3 Extrem: General: Yes normal to inspection Psych: Appearance: grossly normal Results Labs CBC & Chem 7: 01/16/22 05:45 01/16/22 05:45 Labs: Short CBC 01/16/22 Range/Units 05:45 WBC 10.1 (4.8-10.8) X10*3/uL Hgb 13.0 (12.0-16.0) g/dl Hct 41.4 (37.0-47.0) % Plt Count 263 (160-400) X10*3/uL BMP 01/16/22 05:45 Sodium 139 Potassium 4.2 Chloride 101 Carbon Dioxide 24 BUN 14 Creatinine 0.75 Calcium 8.6 D Liver Function 01/16/22 Range/Units 05:45 Total Bilirubin 1.9 H (0.0-1.0) mg/dL AST 331 H (5-31) U/L ALT 529 H (0-31) U/L Alkaline Phosphatase 350 H (39-117) U/L Albumin 3.7 (3.5-5.0) g/dL Microbiology Microbiology Results: Microbiology 01/15/22 Unknown Urine clean catch - Urine seymour top Urine Culture - Final Assessment and Plan (1) Elevated LFTs: Status: Acute Plan 1/ RUq pain with abn LFt and cholelithiasis, most likely symptomatic cholelithiasis, may have passed CBD stone as LFt coming down PLAN: 1/ Await official MRCP report if neg then no need for ERCP, f/u with surgery team. Procedures Date of Service Date of Service: 01/16/22
[2022-01-16] MEDS: Mirabegron 25 MG TAB.ER.24H PO (10:56)
[2022-01-16] MEDS: Enoxaparin Sodium 40 MG/0.4 ML SYRINGE SUBCUT (10:56)
--- NOTE | 2022-01-16 11:25 | PC.NURSE ---
pts urine in collection container bloody, appears with sedement. notified dr lopes, order placed for new U/A. pts periwick, suction tubing and suction cannister changed out.
--- NOTE | 2022-01-16 15:05 | P.PNIM_ITS ---
Subjective Subjective Date of Service: 01/16/22 Interval History: elevated lft's, ruq pain,asthma Review of Systems still has abd pain feels sob denies any fevers or chills Physical Exam 2 Vital Signs: Vital Signs: Last Vital Signs Temp 98.5 F 01/15/22 14:47 Pulse 74 01/16/22 14:11 Resp 20 01/16/22 14:11 BP 120/60 01/16/22 14:11 Pulse Ox 94 01/16/22 14:11 O2 Del Method 01/16/22 14:11 BMI result Body Mass Index 37.8 Appearance: Alert.? Oriented X3.? not in distress.? cvs: rrr, [id number] , no murmur res: air entry fair , has wheezing abd: no rebound or guarding ,ruq pain improving, bs present. ext pulses present , no cyanosis . neuro: axo3 , nonfocal. Objective Data Active Medications Albuterol/Ipratropium (Albuterol/Iprat 2.5/0.5mg 3 Ml Ampul.Neb) 3 ml INHALE RQ4H WHILE AWAKE [facility] Albuterol/Ipratropium (Albuterol/Iprat 2.5/0.5mg 3 Ml Ampul.Neb) 3 ml INHALE RQ4H PRN PRN Reason: Shortness of Breath Enoxaparin Sodium (Enoxaparin Sodium 40 Mg/0.4 Ml Syringe) 40 mg SUBCUT Q24H [facility] Last Admin: 01/16/22 10:56 Dose: 40 mg Documented By: GLORIA Ceftriaxone Sodium 1 gm/ (Sodium Chloride) 50 mls @ 100 mls/hr IV Q24H [facility] Last Infusion: 01/16/22 07:02 Dose: 0 mls/hr Documented By: SONYA Levothyroxine Sodium (Levothyroxine Sodium 75 Mcg Tablet) 75 mcg PO DAILY@0600 [facility] Last Admin: 01/16/22 06:25 Dose: 75 mcg Documented By: SONYA Mirabegron (Mirabegron 25 Mg Tab.Er.24h) 25 mg PO DAILY [facility] Last Admin: 01/16/22 10:56 Dose: 25 mg Documented By: GLORIA Morphine Sulfate (Morphine Sulfate 2 Mg/Ml Cartridge) 2 mg IVPUSH Q3H PRN; Protocol PRN Reason: Pain, Severe (Pain Scale 7-10) Last Admin: 01/15/22 11:50 Dose: 2 mg Documented By: ELLE Pt Own (Fluticasone Propionate [Flovent Hfa] 44 Mcg/Actuation Hfa Aeroso 1 puff INHALE RBID [facility] Last Admin: 01/16/22 08:14 Dose: 1 puff Documented By: PAKO Omeprazole (Omeprazole 20 Mg Capsule.Dr) 20 mg PO DAILY@0630 [facility] Last Admin: 01/16/22 06:25 Dose: 20 mg Documented By: SONYA Ondansetron HCl (Ondansetron Hcl 4 Mg/2 Ml Vial) 4 mg IVPUSH Q8H PRN PRN Reason: Nausea and Vomiting Last Admin: 01/15/22 11:59 Dose: 4 mg Documented By: ELLE Sodium Chloride (0.9 % Sodium Chloride Flush 3 Ml Syringe) 3 ml IVFLUSH QSHIFT [facility] Last Admin: 01/16/22 09:31 Dose: Not Given Documented By: SUSIE Non-Admin Reason: IV Running Labs CBC & Chem 7: 01/16/22 05:45 01/16/22 05:45 Labs: Laboratory Results - last 24 hr 01/16/22 01/16/22 05:45 05:45 MCV 86.6 MCH 27.2 MCHC 31.4 RDW 14.0 Plt Count 263 MPV 10.9 Absolute Nucleated RBC 0.000 Nucleated RBC % (auto) 0.0 Anion Gap 18 Estim Creat Clear Calc 67.5 Estimated GFR > 60 Random Glucose 174 H Calcium 8.6 D Total Bilirubin 1.9 H AST 331 H ALT 529 H Alkaline Phosphatase 350 H Total Protein 6.4 L Albumin 3.7 Microbiology Microbiology Results: Microbiology 01/15/22 Unknown Urine Culture - Final Urine clean catch - Urine seymour top Assessment and Plan (1) Elevated LFTs: Status: Acute (2) Acute cholecystitis: Status: Acute Plan 76 year old female with history of mild persistent asthma, hypothyroidism, gerd, hiatal hernia, bilateral calcific tendonitis, and urge incontinence to be obsesrved for elevated LFTs and biliary colic. 1- Acute Biliary colic with elevated LFTs -AST 508, ALT 562, Alk phos 342, Total bili 3.1-lfts seems slightly improving -US/CT abd/pelvis with cholelithiasis but no obstruction or cholecystitis -PRN ondansetron for n/v,Clear liquids,IV LR x24 hr,Follow LFTs, hepatitis serologies added. mrcp done-cbd fine ? possible Acute cholecystitis- added HIDA scan, continue ceftriaxone and Flagyl. Gi and surgery following 2-Acute UTI -US showed positive nitrites, 4+ bacteria, neg leuks, neg blood. UC pending -No leukocytosis. Afebrile -IV ceftriaxone -Purewick in place with frothing dark yellow/orange urine, repeat UA. 3-Mild persistent asthma without acute exacerbation -Continue flovent -ALbuterol neb prn 4-Hypothyroidism- stable -Continue levothyroxine 5-GERD- stable -EGD 07/01 with strictures with balloon dilitation -Continiue omeprazole DVT prophylaxis- lovenox Need for inpatient: Elevated LFT'S -GI workup pending, possible acute cholecystitis -on iv antibiotics/iv morphine . Quality Stroke Does the patient have a stroke diagnosis?: No VTE Prior VTE?: No VTE Risk Level:: Medical - moderate - high VTE Device Contraindication: Treatment Not Indicated VTE Drug Contraindication: N/A - Med Ordered
--- NOTE | 2022-01-16 15:06 | PC.NURSE ---
Pts son, Mateo, called. Plan of care provided with pts verbal consent.
[2022-01-16 15:33] LABS: Bilirubin Direct 1.3 mg/dL (0.0-0.5)
[2022-01-16 15:47] LABS: Appearance Urine Turbid; Color Urine Dark Yellow; Glucose Urine UA Negative (Negative); Leukocyte Esterase Urine Small (1+) (Negative); Nitrite Urine Positive (Negative); Specific Gravity - Urine 1.025 (1.005-1.025); Urine Blood Negative (Negative); Urine Ketones Negative (Negative); Urine Protein Trace mg/dL (Neg-Trace)
[2022-01-16] MEDS: metroNIDAZOLE/NS 500 MG/100 ML PIGGYBACK 100 MG IV ×2 (15:52→23:28)
[2022-01-16 16:10] LABS: Bacteria Urine None Seen (None Seen); Granular Casts Urine Present; Hyaline Casts Urine 0-2 /LPF (0-2); Other Crystals Urine Present; UACC Culture Trigger YES; WBC Urine 0-5 /HPF (0-5)
[2022-01-16] MEDS: Morphine Sulfate 2 MG/ML CARTRIDGE IVPUSH (21:00)
[2022-01-17] VITALS (16 sets, daily range): BP systolic 124–153; BP diastolic 63–91; PULSE 74–86; RESP 14–20; TEMP 36.3–37.2; O2SAT 91–99
[2022-01-17] MEDS: 0.9 % Sodium Chloride Flush 3 ML SYRINGE IVFLUSH ×3 (01:27→16:09)
[2022-01-17] MEDS: Omeprazole 20 MG CAPSULE.DR PO (05:13)
[2022-01-17] MEDS: cefTRIAXone sodium 1 GM in 0.9 % Sodium Chloride 50 ML IV (05:13)
[2022-01-17] MEDS: Levothyroxine Sodium 75 MCG TABLET PO (05:13)
[2022-01-17] MEDS: Albuterol/Iprat 2.5/0.5MG 3 ML AMPUL.NEB INHALE (05:52)
[2022-01-17] MEDS: ondansetron HCL 4 MG/2 ML VIAL IVPUSH (07:56)
[2022-01-17] MEDS: Mirabegron 25 MG TAB.ER.24H PO (07:57)
[2022-01-17] MEDS: metroNIDAZOLE/NS 500 MG/100 ML PIGGYBACK 100 MG IV ×2 (07:57→16:07)
[2022-01-17] MEDS: Morphine Sulfate 2 MG/ML CARTRIDGE IVPUSH (08:16)
[2022-01-17 08:56] LABS: Alanine Aminotransferase 573 U/L (0-31); Albumin Level 3.6 g/dL (3.5-5.0); Alkaline Phosphatase 438 U/L (39-117); Anion Gap 20 (12-20); Aspartate Amino Transferase 438 U/L (5-31); Bilirubin Direct 2.8 mg/dL (0.0-0.5); Bilirubin Total 3.4 mg/dL (0.0-1.0); Blood Urea Nitrogen 13 mg/dL (9-16); Calcium 8.3 mg/dL (8.4-10.2); Carbon Dioxide 23 mmol/L (22-29); Chloride 99 mmol/L (96-108); Creatinine Clr Calc Pharmacy 65.7; Estimated Glomerular Filt Rate > 60; Glucose Random 188 mg/dL (60-115); Potassium 3.6 mmol/L (3.3-5.1); Sodium 138 mmol/L (135-145); Total Protein 6.1 g/dL (6.5-8.0)
--- NOTE | 2022-01-17 10:49 | P.PNGS_ITS ---
Subjective Subjective Date of Service: 01/20/22 Interval history: seems to have more pain episodes this morning no fever no N/V Physical Exam Vital Signs: Vital Signs: Last Vital Signs Temp 97.3 F 01/17/22 07:23 Pulse 83 01/17/22 07:23 Resp 18 01/17/22 07:23 BP 131/68 01/17/22 07:23 Pulse Ox 94 01/17/22 07:23 O2 Del Method 01/17/22 07:23 BMI result Body Mass Index 37.8 Const: Other: c/o upper abdl pain General: no acute distress Resp: Effort & Inspection: normal respiratory effort Cardio: Rate: regular rate GI: Other: tender on epig area, RUQ Palpation (GI): no guarding Objective Data Active Medications Albuterol/Ipratropium (Albuterol/Iprat 2.5/0.5mg 3 Ml Ampul.Neb) 3 ml INHALE RQ4H WHILE AWAKE [facility] Last Admin: 01/17/22 07:52 Dose: Not Given Documented By: TYRON Non-Admin Reason: Patient Refused Albuterol/Ipratropium (Albuterol/Iprat 2.5/0.5mg 3 Ml Ampul.Neb) 3 ml INHALE RQ4H PRN PRN Reason: Shortness of Breath Enoxaparin Sodium (Enoxaparin Sodium 40 Mg/0.4 Ml Syringe) 40 mg SUBCUT Q24H [facility] Last Admin: 01/16/22 10:56 Dose: 40 mg Documented By: GLORIA Ceftriaxone Sodium 1 gm/ (Sodium Chloride) 50 mls @ 100 mls/hr IV Q24H [facility] Last Infusion: 01/17/22 05:55 Dose: 0 mls/hr Documented By: ANGELIC Metronidazole (Flagyl) 500 mg in 100 mls @ 100 mls/hr IV Q8H [facility] Last Infusion: 01/17/22 10:22 Dose: 0 mls/hr Documented By: CAS Levothyroxine Sodium (Levothyroxine Sodium 75 Mcg Tablet) 75 mcg PO DAILY@0600 [facility] Last Admin: 01/17/22 05:13 Dose: 75 mcg Documented By: ANGELIC Mirabegron (Mirabegron 25 Mg Tab.Er.24h) 25 mg PO DAILY [facility] Last Admin: 01/17/22 07:57 Dose: 25 mg Documented By: JESSE Morphine Sulfate (Morphine Sulfate 2 Mg/Ml Cartridge) 2 mg IVPUSH Q3H PRN; Protocol PRN Reason: Pain, Severe (Pain Scale 7-10) Last Admin: 01/17/22 08:16 Dose: 2 mg Documented By: JESSE Pt Own (Fluticasone Propionate [Flovent Hfa] 44 Mcg/Actuation Hfa Aeroso 1 puff INHALE RBID [facility] Last Admin: 01/16/22 20:17 Dose: 1 puff Documented By: ARMIDA Omeprazole (Omeprazole 20 Mg Capsule.Dr) 20 mg PO DAILY@0630 [facility] Last Admin: 01/17/22 05:13 Dose: 20 mg Documented By: ANGELIC Ondansetron HCl (Ondansetron Hcl 4 Mg/2 Ml Vial) 4 mg IVPUSH Q8H PRN PRN Reason: Nausea and Vomiting Last Admin: 01/17/22 07:56 Dose: 4 mg Documented By: JESSE Sodium Chloride (0.9 % Sodium Chloride Flush 3 Ml [facility]ringe) [facility] Admin: 01/17/22 07:57 Dose: 3 ml Documented By: JESSE Labs CBC & Chem 7: 01/20/22 05:55 01/20/22 05:55 Labs: Laboratory Results - last 24 hr 01/16/22 01/16/22 01/17/22 05:45 15:39 08:00 Anion Gap 20 Estim Creat Clear Calc 65.7 Estimated GFR > 60 Random Glucose 188 H Calcium 8.3 L Total Bilirubin 3.4 H Direct Bilirubin 1.3 H 2.8 H AST 438 H ALT 573 H Alkaline Phosphatase 438 H D Total Protein 6.1 L Albumin 3.6 Urine Color Dark Yellow Urine Appearance Turbid Urine pH 6.0 Ur Specific [place] 1.025 Urine Protein Trace Urine Glucose (UA) Negative Urine Ketones Negative Urine Blood Negative Urine Nitrite Positive H Ur Leukocyte Esterase Small (1+) H Urine RBC 11-20 H Urine WBC 0-5 Ur Squamous Epith Cells 6-10 Other Crystals Present Urine Bacteria None Seen Hyaline Casts 0-2 Granular Casts Present Microbiology Microbiology Results: Microbiology 01/15/22 Unknown Urine Culture - Final Urine clean catch - Urine seymour top Procedures Date of Service Date of Service: 01/20/22 Progress Note: A&P Assessment and plan (1) Elevated LFTs: Status: Acute Assessment and Plan: bilirubin markedly elevated again - high direct fraction MRI yesterday did not show CBD stones however, nature of recurrent pain, elevated bili c/w periodic passage of stone through the duct HIDA scan not reliable nor easy to intrepret with signficantly elevated LFTs continue IV abx NPO for poss. ERCP pain mgt Time Spent With Patient Time: Total time spent is greater than 50% in coordination of care (as documented) at patient's floor/unit and/or counseling patient: Quality Stroke Does the patient have a stroke diagnosis?: No VTE Prior VTE?: No VTE Risk Level:: Medical - moderate - high VTE Device Contraindication: Treatment Not Indicated VTE Drug Contraindication: N/A - Med Ordered
--- NOTE | 2022-01-17 11:10 | PM.GIPN ---
Subjective Subjective Date of Service: 01/17/22 Interval History: worsening RUq pain nausea MRCP reported as nml CBD, no filling defects LFt worse Dr Ortega concerned about CBD obstruction Critical Care Time (minutes): 0 Physical Exam Vital Signs: Vital Signs: Last Vital Signs Temp 97.3 F 01/17/22 07:23 Pulse 83 01/17/22 07:23 Resp 18 01/17/22 07:23 BP 131/68 01/17/22 07:23 Pulse Ox 94 01/17/22 07:23 O2 Del Method 01/17/22 07:23 BMI result Body Mass Index 37.8 EXAM: GENERAL: The patient is sweaty, distressed VITAL SIGNS:see workflow HEENT: Nonicteric sclerae, PERRLA, EOMI. Oropharynx clear. Moist mucous membranes. Conjunctivae appear well perfused. No thyroid mass. CHEST: Chest wall is nontender. HEART: Regular rate and rhythm without murmurs. LUNGS: Clear to auscultation bilaterally. ABDOMEN: Soft, positive bowel sounds, tender RUQ --pos Jones, no organomegaly.no flank tenderness SKIN: No rash, no excessive bruising, petechiae, or purpura. NEUROLOGIC: Cranial nerves II-XII intact without motor/sensory deficit. Psych: Appearance: grossly normal Objective Data Labs CBC & Chem 7: 01/16/22 05:45 01/17/22 08:00 Labs: Laboratory Results - last 24 hr 01/16/22 01/16/22 01/17/22 05:45 15:39 08:00 Sodium 138 Potassium 3.6 Chloride 99 Carbon Dioxide 23 Anion Gap 20 BUN 13 Creatinine 0.77 Estim Creat Clear Calc 65.7 Estimated GFR > 60 Random Glucose 188 H Calcium 8.3 L Total Bilirubin 3.4 H Direct Bilirubin 1.3 H 2.8 H AST 438 H ALT 573 H Alkaline Phosphatase 438 H D Total Protein 6.1 L Albumin 3.6 Urine Color Dark Yellow Urine Appearance Turbid Urine pH 6.0 Ur Specific [place] 1.025 Urine Protein Trace Urine Glucose (UA) Negative Urine Ketones Negative Urine Blood Negative Urine Nitrite Positive H Ur Leukocyte Esterase Small (1+) H Urine RBC 11-20 H Urine WBC 0-5 Ur Squamous Epith Cells 6-10 Other Crystals Present Urine Bacteria None Seen Hyaline Casts 0-2 Granular Casts Present Microbiology Microbiology Results: Microbiology 01/15/22 Unknown Urine clean catch - Urine seymour top Urine Culture - Final Procedures Date of Service Date of Service: 01/17/22 Progress Note: A&P Assessment and plan (1) Acute cholecystitis: Status: Acute (2) Common bile duct (CBD) obstruction: Status: Acute Plan 1/ Worsening pain and LFT, mostly direct bili --Dr Jordan palma concerned about CBD obstruction, may just be cholecystitis and contiguous hepatic inflammation but cant fully exclude CBD obstruction PLAN: 1/ ERCP today, risks and benefits dicussed with patient, she is happy to proceed, already receiving antibiotic.s Time Spent With Patient Time: Total time spent is greater than 50% in coordination of care (as documented) at patient's floor/unit and/or counseling patient: Quality Stroke Does the patient have a stroke diagnosis?: No VTE Prior VTE?: No VTE Risk Level:: Medical - moderate - high VTE Device Contraindication: Treatment Not Indicated VTE Drug Contraindication: N/A - Med Ordered
--- NOTE | 2022-01-17 11:14 | P.PNGI_ITS ---
Subjective Subjective Date of Service: 01/17/22 Interval History: no hx from pt due to dysphasia HGB remains low, gettign PRBC cardiology and primary team v concerned about stopping anticoagulation, feel GIB not fully excluded--high risk of mitral valve thromobosis and no observed melena or rectal bleeding Critical Care Time (minutes): 0 Physical Exam Vital Signs: Vital Signs: Last Vital Signs Temp 99 F 01/17/22 11:12 Pulse 76 01/17/22 11:12 Resp 18 01/17/22 11:12 BP 132/63 01/17/22 11:12 Pulse Ox 96 01/17/22 11:12 O2 Del Method 01/17/22 11:12 BMI result Body Mass Index 37.8 EXAM: GENERAL: The patient is obese VITAL SIGNS:see workflow HEENT: Nonicteric sclerae, PERRLA, EOMI. Oropharynx clear. Moist mucous membranes. Conjunctivae appear well perfused. No thyroid mass. CHEST: Chest wall is nontender. HEART: Regular rate and rhythm without murmurs. LUNGS: Clear to auscultation bilaterally. ABDOMEN: Soft, positive bowel sounds, tender epigastric area , no organomegaly.n o flank tenderness RECTAL: brown pasty stool, no melena or blood SKIN: No rash, no excessive bruising, petechiae, or purpura. NEUROLOGIC: dysphasia Objective Data Labs CBC & Chem 7: 01/16/22 05:45 01/17/22 08:00 Labs: Laboratory Results - last 24 hr 01/16/22 01/16/22 01/17/22 05:45 15:39 08:00 Sodium 138 Potassium 3.6 Chloride 99 Carbon Dioxide 23 Anion Gap 20 BUN 13 Creatinine 0.77 Estim Creat Clear Calc 65.7 Estimated GFR > 60 Random Glucose 188 H Calcium 8.3 L Total Bilirubin 3.4 H Direct Bilirubin 1.3 H 2.8 H AST 438 H ALT 573 H Alkaline Phosphatase 438 H D Total Protein 6.1 L Albumin 3.6 Urine Color Dark Yellow Urine Appearance Turbid Urine pH 6.0 Ur Specific [place] 1.025 Urine Protein Trace Urine Glucose (UA) Negative Urine Ketones Negative Urine Blood Negative Urine Nitrite Positive H Ur Leukocyte Esterase Small (1+) H Urine RBC 11-20 H Urine WBC 0-5 Ur Squamous Epith Cells 6-10 Other Crystals Present Urine Bacteria None Seen Hyaline Casts 0-2 Granular Casts Present Microbiology Microbiology Results: Microbiology 01/15/22 Unknown Urine clean catch - Urine seymour top Urine Culture - Final Progress Note: A&P Time Spent With Patient Time: Total time spent is greater than 50% in coordination of care (as documented) at patient's floor/unit and/or counseling patient: Quality Stroke Does the patient have a stroke diagnosis?: No VTE Prior VTE?: No VTE Risk Level:: Medical - moderate - high VTE Device Contraindication: Treatment Not Indicated VTE Drug Contraindication: N/A - Med Ordered
[2022-01-17] MEDS: Enoxaparin Sodium 40 MG/0.4 ML SYRINGE SUBCUT (11:43)
--- NOTE | 2022-01-17 12:02 | HO.ANESPROP2 ---
[facility] Active Problems Active Problems: All Active Problems (Updated 01/17/22 @ 11:11 by Naomi Quinn MD) Common bile duct (CBD) obstruction (Acute) Acute cholecystitis (Acute) Mild persistent asthma (Acute) Obesity (BMI 30-39.9) (Acute) Elevated LFTs (Acute) Biliary colic (Acute) GERD (gastroesophageal reflux disease) (Acute) Left shoulder tendinitis (Acute) PVCs (premature ventricular contractions) (Acute) Overactive bladder (Acute) COVID-19 (Acute) Mild recurrent major depression (Acute) GILDA (obstructive sleep apnea) (Acute) Left shoulder pain (Acute) Hypothyroidism (Acute) Dysphagia (Acute) Hiatal hernia (Acute) Past Medical History Medical History Acute respiratory failure with hypoxia Colitis Colon cancer screening Depression with anxiety Dysphagia Erosive esophagitis GERD (gastroesophageal reflux disease) Hiatal hernia Hospital discharge follow-up Hypothyroidism Left shoulder pain Mild cognitive impairment Mild persistent asthma with (acute) exacerbation Mild recurrent major depression Morbid obesity Obesity (BMI 30-39.9) GILDA (obstructive sleep apnea) Pure hypercholesterolemia Toxic encephalopathy Family History Family History Mother Diabetes Hypertension Stroke Father Lung cancer Family history of problems with anesthesia: No Surgical History Surgical History H/O colonoscopy History of benign ovarian tumor History of esophagogastroduodenoscopy (EGD) History of Problems with Anesthesia: Yes (PONV) Social History Social History Household Members: None Household Members Other:: daughter lives downstairs Housing: House Are you a primary healthcare project manager to a significant other at home: No Do you presently have visiting nurse or other home services: Yes (Pt) Alcohol intake: never Patient Tobacco Use Status: Never used Tobacco e-Cigarette/Vaping Use: Never Used Second Hand Smoke Exposure: Yes Advance Directives Date on File: 04/03/20 service: No Current occupational status: retired Current occupation: right handed Cognitive needs: Yes Hearing needs: No Vision needs: No Meds Allergies Allergy/AdvReac Type Severity Reaction Status Date / Time influenza virus vaccine, Allergy Severe SEVERE FLU Verified 11/27/21 13:27 specific SYMPTOMS [Influenza Virus Vacc,Specific] codeine [CODEINE] Allergy Intermediate NAUSEA & Verified 11/27/21 13:27 VOMITING Sulfa (Sulfonamide Allergy Intermediate Hives Verified 11/27/21 13:27 Antibiotics) amoxicillin [Amoxicillin] Allergy Unknown UNKNOWN Verified 11/27/21 13:27 Penicillins Allergy Unknown UNKNOWN Verified 11/27/21 13:27 Active Medications: Current Medications Albuterol/Ipratropium (Albuterol/Iprat 2.5/0.5mg 3 Ml Ampul.Neb) 3 ml INHALE RQ4H WHILE AWAKE [facility] Last Admin: 01/17/22 07:52 Dose: Not Given Albuterol/Ipratropium (Albuterol/Iprat 2.5/0.5mg 3 Ml Ampul.Neb) 3 ml INHALE RQ4H PRN PRN Reason: Shortness of Breath Enoxaparin Sodium (Enoxaparin Sodium 40 Mg/0.4 Ml Syringe) 40 mg SUBCUT Q24H [facility] Last Admin: 01/17/22 11:43 Dose: 40 mg Ceftriaxone Sodium 1 gm/ (Sodium Chloride) 50 mls @ 100 mls/hr IV Q24H [facility] Last Infusion: 01/17/22 05:55 Dose: Infused Metronidazole (Flagyl) 500 mg in 100 mls @ 100 mls/hr IV Q8H [facility] Last Infusion: 01/17/22 10:22 Dose: Infused Levothyroxine Sodium (Levothyroxine Sodium 75 Mcg Tablet) 75 mcg PO DAILY@0600 [facility] Last Admin: 01/17/22 05:13 Dose: 75 mcg Mirabegron (Mirabegron 25 Mg Tab.Er.24h) 25 mg PO DAILY [facility] Last Admin: 01/17/22 07:57 Dose: 25 mg Morphine Sulfate (Morphine Sulfate 2 Mg/Ml Cartridge) 2 mg IVPUSH Q3H PRN; Protocol PRN Reason: Pain, Severe (Pain Scale 7-10) Last Admin: 01/17/22 08:16 Dose: 2 mg Pt Own (Fluticasone Propionate [Flovent Hfa] 44 Mcg/Actuation Hfa Aeroso 1 puff INHALE RBID [facility] Last Admin: 01/17/22 11:42 Dose: 1 puff Omeprazole (Omeprazole 20 Mg Capsule.Dr) 20 mg PO DAILY@0630 [facility] Last Admin: 01/17/22 05:13 Dose: 20 mg Ondansetron HCl (Ondansetron Hcl 4 Mg/2 Ml Vial) 4 mg IVPUSH Q8H PRN PRN Reason: Nausea and Vomiting Last Admin: 01/17/22 07:56 Dose: 4 mg Sodium Chloride (0.9 % Sodium Chloride Flush 3 Ml Syringe) 3 ml IVFLUSH QSHIFT [facility] Last Admin: 01/17/22 07:57 Dose: 3 ml Home Medications Medication Instructions Recorded Confirmed Last Taken Type fluticasone propionate 44 1 puff inhalation BID 01/15/22 01/15/22 Unknown History mcg/actuation HFA aerosol inhaler (Flovent HFA) levothyroxine 75 mcg tablet 1 tab PO DAILY 01/15/22 01/15/22 Unknown History mirabegron 25 mg tablet,extended 1 tab PO DAILY 01/15/22 01/15/22 Unknown History release 24 hr (Myrbetriq) omeprazole 20 mg capsule,delayed 1 cap PO DAILY 01/15/22 01/15/22 Unknown History release Exam Exam Date and Time: January 17, 2022 1202 Height,Weight and Vital Signs: Height 5 ft 1 in Weight 90.718 kg Last Vital Signs Temp 99 F 01/17/22 11:12 Pulse 76 01/17/22 11:12 Resp 18 01/17/22 11:12 BP 132/63 01/17/22 11:12 Pulse Ox 96 01/17/22 11:12 O2 Del Method 01/17/22 11:12 Pertinent Lab Results Pertinent Lab Results: Laboratory Tests 01/14/22 01/14/22 01/14/22 22:56 22:56 22:56 WBC 10.8 RBC 4.89 Hgb 13.6 Hct 41.7 MCV 85.3 MCH 27.8 MCHC 32.6 RDW 13.7 Plt Count 305 MPV 11.0 Immature Gran % (Auto) 0.4 Neut % (Auto) 89.7 H Lymph % (Auto) 4.7 L [place] % (Auto) 4.4 Eos % (Auto) 0.3 Baso % (Auto) 0.5 Lymph # (Auto) 0.5 L Fleming # (Auto) 0.5 Eos # (Auto) 0.0 Baso # (Auto) 0.1 Abs Immat Gran (auto) 0.04 H Absolute Neuts (auto) 9.7 H Absolute Nucleated RBC 0.000 Nucleated RBC % (auto) 0.0 Sodium Potassium Chloride Carbon Dioxide Anion Gap BUN Creatinine Estim Creat Clear Calc Estimated GFR Random Glucose Estimat Average Glucose Hemoglobin A1c % Lactic Acid 1.3 Calcium Total Bilirubin Direct Bilirubin AST ALT Alkaline Phosphatase Total Protein Albumin Lipase Urine Color Urine Appearance Urine pH Ur Specific [place] Urine Protein Urine Glucose (UA) Urine Ketones Urine Blood Urine Nitrite Ur Leukocyte Esterase Urine RBC Urine WBC Ur Squamous Epith Cells Calcium Oxalate Crystal Other Crystals Urine Bacteria Hyaline Casts Granular Casts COVID-19 (ANEL) Negative COVID-19 Clin Com See Note 01/14/22 01/15/22 01/15/22 22:56 00:00 03:19 WBC RBC Hgb Hct MCV MCH MCHC RDW Plt Count MPV Immature Gran % (Auto) Neut % (Auto) Lymph % (Auto) Fleming % (Auto) Eos % (Auto) Baso % (Auto) Lymph # (Auto) Fleming # (Auto) Eos # (Auto) Baso # (Auto) Abs Immat Gran (auto) Absolute Neuts (auto) Absolute Nucleated RBC Nucleated RBC % (auto) Sodium 139 Potassium 4.5 Chloride 100 Carbon Dioxide 23 Anion Gap 21 H BUN 19 H Creatinine 0.93 Estim Creat Clear Calc 54.4 Estimated GFR 59 Random Glucose 273 H Estimat Average Glucose 163 Hemoglobin A1c % 7.3 Lactic Acid Calcium 9.5 Total Bilirubin 3.1 H Direct Bilirubin AST 508 H ALT 562 H Alkaline Phosphatase 342 H D Total Protein 7.0 Albumin 4.1 Lipase 15 Urine Color Yellow Urine Appearance Hazy Urine pH 6.5 Ur Specific [place] 1.025 Urine Protein Negative Urine Glucose (UA) Negative Urine Ketones 15 Urine Blood Negative Urine Nitrite Positive H Ur Leukocyte Esterase Negative Urine RBC 0-2 Urine WBC 0-5 Ur Squamous Epith Cells 6-10 Calcium Oxalate Crystal Present Other Crystals Urine Bacteria 4+ Hyaline Casts Not Reportable Granular Casts COVID-19 (ANEL) COVID-19 Clin Com 01/16/22 01/16/22 01/16/22 05:45 05:45 15:39 WBC 10.1 RBC 4.78 Hgb 13.0 Hct 41.4 MCV 86.6 MCH 27.2 MCHC 31.4 RDW 14.0 Plt Count 263 MPV 10.9 Immature Gran % (Auto) Neut % (Auto) Lymph % (Auto) Fleming % (Auto) Eos % (Auto) Baso % (Auto) Lymph # (Auto) Fleming # (Auto) Eos # (Auto) Baso # (Auto) Abs Immat Gran (auto) Absolute Neuts (auto) Absolute Nucleated RBC 0.000 Nucleated RBC % (auto) 0.0 Sodium 139 Potassium 4.2 Chloride 101 Carbon Dioxide 24 Anion Gap 18 BUN 14 Creatinine 0.75 Estim Creat Clear Calc 67.5 Estimated GFR > 60 Random Glucose 174 H Estimat Average Glucose Hemoglobin A1c % Lactic Acid Calcium 8.6 D Total Bilirubin 1.9 H Direct Bilirubin 1.3 H AST 331 H ALT 529 H Alkaline Phosphatase 350 H Total Protein 6.4 L Albumin 3.7 Lipase Urine Color Dark Yellow Urine Appearance Turbid Urine pH 6.0 Ur Specific [place] 1.025 Urine Protein Trace Urine Glucose (UA) Negative Urine Ketones Negative Urine Blood Negative Urine Nitrite Positive H Ur Leukocyte Esterase Small (1+) H Urine RBC 11-20 H Urine WBC 0-5 Ur Squamous Epith Cells 6-10 Calcium Oxalate Crystal Other Crystals Present Urine Bacteria None Seen Hyaline Casts 0-2 Granular Casts Present COVID-19 (ANEL) COVID-19 Clin Com 01/17/22 08:00 WBC RBC Hgb Hct MCV MCH MCHC RDW Plt Count MPV Immature Gran % (Auto) Neut % (Auto) Lymph % (Auto) Fleming % (Auto) Eos % (Auto) Baso % (Auto) Lymph # (Auto) Fleming # (Auto) Eos # (Auto) Baso # (Auto) Abs Immat Gran (auto) Absolute Neuts (auto) Absolute Nucleated RBC Nucleated RBC % (auto) Sodium 138 Potassium 3.6 Chloride 99 Carbon Dioxide 23 Anion Gap 20 BUN 13 Creatinine 0.77 Estim Creat Clear Calc 65.7 Estimated GFR > 60 Random Glucose 188 H Estimat Average Glucose Hemoglobin A1c % Lactic Acid Calcium 8.3 L Total Bilirubin 3.4 H Direct Bilirubin 2.8 H AST 438 H ALT 573 H Alkaline Phosphatase 438 H D Total Protein 6.1 L Albumin 3.6 Lipase Urine Color Urine Appearance Urine pH Ur Specific [place] Urine Protein Urine Glucose (UA) Urine Ketones Urine Blood Urine Nitrite Ur Leukocyte Esterase Urine RBC Urine WBC Ur Squamous Epith Cells Calcium Oxalate Crystal Other Crystals Urine Bacteria Hyaline Casts Granular Casts COVID-19 (ANEL) COVID-19 Clin Com Airway Mallampati Class: II (Cap located bottom left) TM Dist: >3cm Neck ROM: Full Heart: rrr Lungs: cta Assessment and Plan Assessment Anesthesia Assessment: Anesthesia Plan Discussed and Chart Reviewed Final Anesthetic Review Family History of Problems with Anesthesia: No History of Problems with Anesthesia: Yes (PONV) NPO: Yes ASA Class: III Final Preanesthetic Review: No Changes in Pt Med Stat, Meds/Allgs Chart Reviewed and Consent Obtained/Reviewed Patient Risk: Intermediate Procedure Risk: Intermediate Anesthetic Plan Anesthetic Plan: GA Disposition: Standard PACU
[2022-01-17] MEDS: Lactated Ringers 1,000 ML 50 ML IVCONT (12:25)
--- NOTE | 2022-01-17 12:32 | MHC.SHP ---
Pre-Procedural Eval Section A Date of Service: 01/17/22 The patient is an INPATIENT: Yes The History & Physical has been completed within 30 days and I have reviewed it.: Yes Section B Chief Complaint: Back pain, nausea vomiting Allergies: Allergies Allergy/AdvReac Type Severity Reaction Status Date / Time influenza virus vaccine, Allergy Severe SEVERE FLU Verified 11/27/21 13:27 specific SYMPTOMS [Influenza Virus Vacc,Specific] codeine [CODEINE] Allergy Intermediate NAUSEA & Verified 11/27/21 13:27 VOMITING Sulfa (Sulfonamide Allergy Intermediate Hives Verified 11/27/21 13:27 Antibiotics) amoxicillin [Amoxicillin] Allergy Unknown UNKNOWN Verified 11/27/21 13:27 Penicillins Allergy Unknown UNKNOWN Verified 11/27/21 13:27 Plan Diagnosis/Plan: Unchanged I have reviewed the history and physical and performed a pertinent physical examination on my patient. No changes have occurred unless specified.
--- NOTE | 2022-01-17 13:37 | P.OP_ITS ---
Operative Note Operative Note Date of Service: 01/17/22 Narrative: Description: Endoscopic retrograde cholangiopancreatography (ERCP) PROCEDURE: Endoscopic retrograde cholangiopancreatography with sphincterotomy, cholangiogram and stone extraction INDICATION FOR THE PROCEDURE: Patient with a history of abdominal pain, gallstones and worsening LFT, concern for choledocholithiasis. MEDICATIONS: General anesthesia, rectal indomethacin 100 mg, IV ABX on the floor The risks of the procedure were made aware to the patient and consisted of medication reaction, bleeding, perforation, aspiration, and post ERCP pancreatitis. DESCRIPTION OF PROCEDURE: After informed consent and appropriate sedation, the duodenoscope was inserted into the oropharynx, down the esophagus, and into the stomach. The scope was then advanced through the pylorus to the ampulla. The ampulla was bulbous and swollen. The tome was angled and using wire guided technique the wire was threaded thru the tome. It went into the PD few times despite angling and bowing of the tome. A [place] precut was done and then the tome re angled. It went straight into the CBD. A cholangiogram revealed a distal filling defect. A sphincterotomy was carefully performed which was generous, some bile flowed out. A light green yellow stone about 10-12 mm then popped out. An extraction balloon was exchanged and dragged across the CBD, no further debris or stones came out. An occlusion cholangiogram was done, no further filling defects, multiple stones noted in the gallbladder which filled easily. There was some minor oozing which had ceased by the end of the procedure. The stomach was then decompressed and the endoscope was withdrawn. FINDINGS: 1. choledocholithiasis 2. gallstones, filling of gallbladder suggests there is no cholecystitis. RECOMMENDATIONS: 1. NPO except ice chips for next 4-6 hrs then clears as tolerated, can advance diet tomorrow if feels well 2. follow up with surgery team.
--- NOTE | 2022-01-17 14:06 | HO.PM.IMPN ---
Subjective Subjective Date of Service: 01/17/22 Interval History: elevated lft's, ruq pain,asthma Review of Systems Still has right upper quadrant pain . Still has nauseated Denies any chest pain or shortness of breath or fever chills or cough phlegm. Physical Exam Vital Signs: Vital Signs: Last Vital Signs Temp 98.8 F 01/17/22 13:38 Pulse 75 01/17/22 13:53 Resp 20 01/17/22 13:53 BP 149/69 H 01/17/22 13:53 Pulse Ox 95 01/17/22 13:53 O2 Del Method 01/17/22 13:53 O2 Flow Rate 3 01/17/22 13:53 BMI result Body Mass Index 37.8 Appearance: Alert.? Oriented X3.? not in distress.? cvs: rrr, [id number] , no murmur res: air entry fair , has wheezing abd: no rebound or guarding ,ruq pain?worsening, bs present. ext pulses present , no cyanosis . neuro: axo3 , nonfocal. Objective Data Active Medications Albuterol/Ipratropium (Albuterol/Iprat 2.5/0.5mg 3 Ml Ampul.Neb) 3 ml INHALE RQ4H WHILE AWAKE [facility] Last Admin: 01/17/22 12:16 Dose: Not Given Documented By: SELAM Non-Admin Reason: off unit Albuterol/Ipratropium (Albuterol/Iprat 2.5/0.5mg 3 Ml Ampul.Neb) 3 ml INHALE RQ4H PRN PRN Reason: Shortness of Breath Enoxaparin Sodium (Enoxaparin Sodium 40 Mg/0.4 Ml Syringe) 40 mg SUBCUT Q24H [facility] Last Admin: 01/17/22 11:43 Dose: 40 mg Documented By: CAS Fentanyl (Fentanyl Citrate/Pf 100 Mcg/2 Ml Vial) 50 mcg IVPUSH Q5M PRN; Protocol PRN Reason: Pain, Severe (Pain Scale 7-10) Ceftriaxone Sodium 1 gm/ (Sodium Chloride) 50 mls @ 100 mls/hr IV Q24H [facility] Last Infusion: 01/17/22 05:55 Dose: 0 mls/hr Documented By: ANGELIC Metronidazole (Flagyl) 500 mg in 100 mls @ 100 mls/hr IV Q8H [facility] Last Infusion: 01/17/22 10:22 Dose: 0 mls/hr Documented By: CAS Lactated Ringer's (Lr) 1,000 mls @ 50 mls/hr IVCONT .Q20H [facility] Last Admin: 01/17/22 12:25 Dose: 50 mls/hr Documented By: LISA Levothyroxine Sodium (Levothyroxine Sodium 75 Mcg Tablet) 75 mcg PO DAILY@0600 [facility] Last Admin: 01/17/22 05:13 Dose: 75 mcg Documented By: ANGELIC Mirabegron (Mirabegron 25 Mg Tab.Er.24h) 25 mg PO DAILY [facility] Last Admin: 01/17/22 07:57 Dose: 25 mg Documented By: JESSE Morphine Sulfate (Morphine Sulfate 2 Mg/Ml Cartridge) 2 mg IVPUSH Q3H PRN; Protocol PRN Reason: Pain, Severe (Pain Scale 7-10) Last Admin: 01/17/22 08:16 Dose: 2 mg Documented By: JESSE Pt Own (Fluticasone Propionate [Flovent Hfa] 44 Mcg/Actuation Hfa Aeroso 1 puff INHALE RBID [facility] Last Admin: 01/17/22 11:42 Dose: 1 puff Documented By: CAS Omeprazole (Omeprazole 20 Mg Capsule.) 20 mg PO DAILY@0630 [facility] Last Admin: 01/17/22 05:13 Dose: 20 mg Documented By: ANGELIC Ondansetron HCl (Ondansetron Hcl 4 Mg/2 Ml Vial) 4 mg IVPUSH Q8H PRN PRN Reason: Nausea and Vomiting Last Admin: 01/17/22 07:56 Dose: 4 mg Documented By: JESSE Sodium Chloride (0.9 % Sodium Chloride Flush 3 Ml Syringe) 3 ml IVFLUSH QSHIFT [facility] Last Admin: 01/17/22 07:57 Dose: 3 ml Documented By: JESSE Labs CBC & Chem 7: 01/16/22 05:45 01/17/22 08:00 Labs: Laboratory Results - last 24 hr 01/16/22 01/16/22 01/17/22 05:45 15:39 08:00 Anion Gap 20 Estim Creat Clear Calc 65.7 Estimated GFR > 60 Random Glucose 188 H Calcium 8.3 L Total Bilirubin 3.4 H Direct Bilirubin 1.3 H 2.8 H AST 438 H ALT 573 H Alkaline Phosphatase 438 H D Total Protein 6.1 L Albumin 3.6 Urine Color Dark Yellow Urine Appearance Turbid Urine pH 6.0 Ur Specific [place] 1.025 Urine Protein Trace Urine Glucose (UA) Negative Urine Ketones Negative Urine Blood Negative Urine Nitrite Positive H Ur Leukocyte Esterase Small (1+) H Urine RBC 11-20 H Urine WBC 0-5 Ur Squamous Epith Cells 6-10 Other Crystals Present Urine Bacteria None Seen Hyaline Casts 0-2 Granular Casts Present Assessment and Plan (1) Common bile duct (CBD) obstruction: Status: Acute (2) Acute cholecystitis: Status: Acute (3) Mild persistent asthma: Status: Acute (4) Elevated LFTs: Status: Acute Plan 76 year old female with history of mild persistent asthma, hypothyroidism, gerd, hiatal hernia, bilateral calcific tendonitis, and urge incontinence to be obsesrved for elevated LFTs and biliary colic. 1- Acute Biliary colic with elevated LFTs -AST 508, ALT 562, Alk phos 342, Total bili 3.1-lfts seems worsenin -US/CT abd/pelvis with cholelithiasis but no obstruction or cholecystitis -PRN ondansetron for n/v,Clear liquids,IV LR x24 hr,Follow LFTs, hepatitis serologies added. mrcp done-cbd fine yesterday continue ceftriaxone and Flagyl. ?Gi and surgery following-possible ercp today 2-Acute UTI -US showed positive nitrites, 4+ bacteria, neg leuks, neg blood. UC pending -No leukocytosis. Afebrile -IV ceftriaxone -Purewick in place with frothing dark yellow/orange urine, repeat UA. 3-Mild persistent asthma without acute exacerbation -Continue flovent -ALbuterol neb prn 4-Hypothyroidism- stable -Continue levothyroxine 5-GERD- stable -EGD 07/01 with strictures with balloon dilitation -Continiue omeprazole DVT prophylaxis- lovenox ? Need for inpatient:? Elevated LFT'S -GI workup pending, possible acute cholecystitis and cbd stone -on iv antibiotics, needs ercp. Quality Stroke Does the patient have a stroke diagnosis?: No VTE Prior VTE?: No VTE Risk Level:: Medical - moderate - high VTE Device Contraindication: Treatment Not Indicated VTE Drug Contraindication: N/A - Med Ordered
--- NOTE | 2022-01-17 15:14 | PM.EVENT ---
Event Note Date of Service: 01/17/22 Event Note: She underwent ERCP this afternoon for rising bilirubin CBD stones removed, sphincterotomy done Follow LFTs Allow LFTs to decrease I have explained to her option of proceeding with inpatient cholecystectomy versus outpatient in view of risk of recurrence Will continue to follow therefore Exam benign
[2022-01-18] MEDS: Morphine Sulfate 2 MG/ML CARTRIDGE IVPUSH ×2 (01:57→09:08)
[2022-01-18] MEDS: metroNIDAZOLE/NS 500 MG/100 ML PIGGYBACK 100 MG IV ×4 (02:00→22:20)
[2022-01-18] MEDS: ondansetron HCL 4 MG/2 ML VIAL IVPUSH ×4 (02:00→19:26)
[2022-01-18 03:25] VITALS: BP 108/55; PULSE 83; RESP 18; TEMP 36.5; O2SAT 96
--- NOTE | 2022-01-18 03:28 | PC.NURSE ---
Pt c/o severe 02/17 pain w NV. contacted . Gave okay to give extra dose of 4mg Zofran IV at 0315am.
[2022-01-18] MEDS: HYDROmorphone HCl 0.5 MG/0.5 ML SYRINGE IVPUSH ×5 (03:31→22:15)
[2022-01-18] MEDS: Levothyroxine Sodium 75 MCG TABLET PO (06:15)
[2022-01-18] MEDS: Omeprazole 20 MG CAPSULE.DR PO (06:15)
[2022-01-18] MEDS: cefTRIAXone sodium 1 GM in 0.9 % Sodium Chloride 50 ML IV (06:16)
[2022-01-18] MEDS: Lactated Ringers 1,000 ML 100 ML IVCONT (06:52)
[2022-01-18 07:16] LABS: Basophils Percent Auto 0.2 % (0-2); Eosinophils Percent Auto 0.1 % (0-4); Hematocrit 39.9 % (37.0-47.0); Hemoglobin 12.7 g/dl (12.0-16.0); Imm Gran Abs Auto 0.08 X10*3/uL (0.00-0.03); Imm Gran Pct Auto 0.6 % (0.0-0.4); Lymphocytes Absolute Auto 0.2 X10*3/uL (1.2-4.9); Lymphocytes Percent Auto 1.5 % (20-40); MANUAL DIFF FLAG SCAN; Mean Corpuscular HGB Conc 31.8 g/dl (31.0-35.0); Mean Corpuscular Hemoglobin 27.7 pg (27.0-33.0); Mean Corpuscular Volume 87.1 fL (80.0-98.0); Mean Platelet Volume 11.1 fL (9.4-12.3); Monocytes Absolute Auto 0.4 X10*3/uL (0.1-1.2); Monocytes Percent Auto 3.4 % (2-11); Neutrophils Absolute Auto 11.9 x10*3/uL (2.0-8.3); Neutrophils Percent Auto 94.2 % (45-73); Platelet Count 269 X10*3/uL (160-400); Red Blood Count 4.58 X10*6/uL (4.20-5.50); Red Cell Distribution Width 14.1 % (11.0-16.0); SCAN SMEAR FLAG 1; White Blood Count 12.7 X10*3/uL (4.8-10.8)
[2022-01-18 07:37] LABS: SLIDE REVIEW VERIFIED
[2022-01-18 07:44] VITALS: BP 142/62; PULSE 76; RESP 18; TEMP 36.3; O2SAT 91
[2022-01-18 07:58] LABS: Alanine Aminotransferase 508 U/L (0-31); Albumin Level 3.3 g/dL (3.5-5.0); Alkaline Phosphatase 477 U/L (39-117); Anion Gap 18 (12-20); Aspartate Amino Transferase 292 U/L (5-31); Bilirubin Direct 3.1 mg/dL (0.0-0.5); Bilirubin Total 3.8 mg/dL (0.0-1.0); Blood Urea Nitrogen 12 mg/dL (9-16); Calcium 8.1 mg/dL (8.4-10.2); Carbon Dioxide 25 mmol/L (22-29); Chloride 99 mmol/L (96-108); Estimated Glomerular Filt Rate > 60; Glucose Random 252 mg/dL (60-115); Potassium 3.9 mmol/L (3.3-5.1); Sodium 138 mmol/L (135-145); Total Protein 5.8 g/dL (6.5-8.0)
--- NOTE | 2022-01-18 08:03 | PM.PNGS ---
Subjective Subjective Date of Service: 01/18/22 Interval history: I was called overnight about worsening abdominal pain post ERCP that sounds clinically like post ERCP pancreatitis. Pain medications were ordered an adjusted, anti emetics ordered. Labs are currently pending. Patient endorses continued abdominal pain with no significant improvement since yesterday. Physical Exam Vital Signs: Vital Signs: Last Vital Signs Temp 97.3 F 01/18/22 07:44 Pulse 76 01/18/22 07:44 Resp 18 01/18/22 07:44 BP 142/62 H 01/18/22 07:44 Pulse Ox 91 L 01/18/22 07:44 O2 Del Method 01/18/22 07:44 O2 Flow Rate 2 01/18/22 07:44 BMI result Body Mass Index 37.8 She is obviously uncomfortable Abdomen is obese with epigastric tenderness but no peritoneal irritation to percussion to suggest perforation Objective Data Active Medications Albuterol/Ipratropium (Albuterol/Iprat 2.5/0.5mg 3 Ml Ampul.Neb) 3 ml INHALE RQ4H WHILE AWAKE [facility] Last Admin: 01/18/22 07:54 Dose: Not Given Documented By: TYRON Non-Admin Reason: Patient Refused Albuterol/Ipratropium (Albuterol/Iprat 2.5/0.5mg 3 Ml Ampul.Neb) 3 ml INHALE RQ4H PRN PRN Reason: Shortness of Breath Enoxaparin Sodium (Enoxaparin Sodium 40 Mg/0.4 Ml Syringe) 40 mg SUBCUT Q24H [facility] Last Admin: 01/17/22 11:43 Dose: 40 mg Documented By: CAS Fentanyl (Fentanyl Citrate/Pf 100 Mcg/2 Ml Vial) 50 mcg IVPUSH Q5M PRN; Protocol PRN Reason: Pain, Severe (Pain Scale 7-10) Hydromorphone HCl (Hydromorphone Hcl 0.5 Mg/0.5 Ml Syringe) 0.5 mg IVPUSH Q3H PRN; Protocol PRN Reason: Pain, Severe (Pain Scale 7-10) Last Admin: 01/18/22 03:31 Dose: 0.5 mg Documented By: KENNEDY Ceftriaxone Sodium 1 gm/ (Sodium Chloride) 50 mls @ 100 mls/hr IV Q24H [facility] Last Infusion: 01/18/22 06:54 Dose: 0 mls/hr Documented By: KENNEDY Metronidazole (Flagyl) 500 mg in 100 mls @ 100 mls/hr IV Q8H [facility] Last Infusion: 01/18/22 03:34 Dose: 0 mls/hr Documented By: KENNEDY Lactated Ringer's (Lr) 1,000 mls @ 100 mls/hr IVCONT .Q10H [facility] Last Admin: 01/18/22 06:52 Dose: 100 mls/hr Documented By: KENNEDY Promethazine HCl 12.5 mg/ (Sodium Chloride) 50.5 mls @ 202 mls/hr IV ONCE PRN PRN Reason: Nausea and Vomiting Levothyroxine Sodium (Levothyroxine Sodium 75 Mcg Tablet) 75 mcg PO DAILY@0600 [facility] Last Admin: 01/18/22 06:15 Dose: 75 mcg Documented By: KENNEDY Mirabegron (Mirabegron 25 Mg Tab.Er.24h) 25 mg PO DAILY [facility] Last Admin: 01/17/22 07:57 Dose: 25 mg Documented By: JESSE Morphine Sulfate (Morphine Sulfate 2 Mg/Ml Cartridge) 2 mg IVPUSH Q3H PRN; Protocol PRN Reason: Pain, Severe (Pain Scale 7-10) Last Admin: 01/18/22 01:57 Dose: 2 mg Documented By: KENNEDY Pt Own (Fluticasone Propionate [Flovent Hfa] 44 Mcg/Actuation Hfa Aeroso 1 puff INHALE RBID [facility] Last Admin: 01/17/22 20:57 Dose: 1 puff Documented By: HENOK Omeprazole (Omeprazole 20 Mg Capsule.Dr) 20 mg PO DAILY@0630 [facility] Last Admin: 01/18/22 06:15 Dose: 20 mg Documented By: KENNEDY Ondansetron HCl (Ondansetron Hcl 4 Mg/2 Ml Vial) 4 mg IVPUSH Q8H PRN PRN Reason: Nausea and Vomiting Sodium Chloride (0.9 % Sodium Chloride Flush 3 Ml Syringe) 3 ml IVFLUSH QSHIFT [facility] Last Admin: 01/18/22 02:06 Dose: Not Given Documented By: KENNEDY Non-Admin Reason: IV Running Labs CBC & Chem 7: 01/18/22 06:59 01/18/22 06:59 Labs: Laboratory Results - last 24 hr 01/17/22 01/18/22 01/18/22 08:00 06:59 06:59 MCV 87.1 MCH 27.7 MCHC 31.8 RDW 14.1 Plt Count 269 MPV 11.1 Immature Gran % (Auto) 0.6 H Neut % (Auto) 94.2 H Lymph % (Auto) 1.5 L [place] % (Auto) 3.4 Eos % (Auto) 0.1 Baso % (Auto) 0.2 Lymph # (Auto) 0.2 L [place] # (Auto) 0.4 Eos # (Auto) 0.0 Baso # (Auto) 0.0 Abs Immat Gran (auto) 0.08 H Absolute Neuts (auto) 11.9 H Absolute Nucleated RBC 0.000 Nucleated RBC % (auto) 0.0 Smear Tech's Comments VERIFIED Anion Gap 20 18 Estim Creat Clear Calc 65.7 64.0 Estimated GFR > 60 > 60 Random Glucose 188 H 252 H Calcium 8.3 L 8.1 L Total Bilirubin 3.4 H 3.8 H Direct Bilirubin 2.8 H 3.1 H AST 438 H 292 H ALT 573 H 508 H Alkaline Phosphatase 438 H D 477 H Total Protein 6.1 L 5.8 L Albumin 3.6 3.3 L Procedures Date of Service Date of Service: 01/18/22 Progress Note: A&P Assessment and plan (1) Common bile duct (CBD) obstruction: Status: Acute (2) Acute cholecystitis: Status: Acute (3) Mild persistent asthma: Status: Acute (4) Obesity (BMI 30-39.9): Status: Acute (5) Elevated LFTs: Status: Acute (6) Biliary colic: Status: Acute (7) Post-ERCP acute pancreatitis: Status: Acute Plan Continue NPO except for ice chips and IV fluid Await amylase/lipase to assess for post ERCP pancreatitis If these values are within normal parameters, possible CT to assess for micro perforation may be in order. Please note elevated amylase and lipase. This is consistent with post ERCP pancreatitis. I do not see a need to repeat a CT, continue NPO except for ice chips and confirm planned with GI. If she clinically deteriorates, a CT with oral contrast may be beneficial. Please call with questions, will continue to follow. Time Spent With Patient Time: Total time spent is greater than 50% in coordination of care (as documented) at patient's floor/unit and/or counseling patient: Quality Stroke Does the patient have a stroke diagnosis?: No VTE Prior VTE?: No VTE Risk Level:: Medical - moderate - high VTE Device Contraindication: Treatment Not Indicated VTE Drug Contraindication: N/A - Med Ordered
[2022-01-18 08:14] LABS: Amylase 1148 U/L (28-100)
[2022-01-18 08:22] LABS: Lipase 3156 U/L (8-78)
[2022-01-18] MEDS: Mirabegron 25 MG TAB.ER.24H PO (09:08)
[2022-01-18] MEDS: Enoxaparin Sodium 40 MG/0.4 ML SYRINGE SUBCUT (09:08)
[2022-01-18] MEDS: 0.9 % Sodium Chloride Flush 3 ML SYRINGE IVFLUSH (09:09)
--- NOTE | 2022-01-18 11:19 | HO.POSTANES ---
Post Anesthesia Evaluation Post Anesthesia Evaluation Vital Signs: Vital Signs Temp Pulse Resp BP Pulse Ox O2 Del Method O2 Flow Rate 01/18/22 07:44 97.3 F 76 18 142/62 H 91 L Nasal Cannula 2 01/18/22 03:25 97.7 F 83 18 108/55 L 96 Nasal Cannula 2 01/17/22 23:21 98 F 76 18 153/71 H 96 Nasal Cannula 2 Anesthesia: General Endotracheal-GETA Mental Status: Awake Pain Control: Satisfactory Nausea/Vomiting: None Hydration: Adequate Anesthesia-Related Issues: No Anes. Related Issues
--- NOTE | 2022-01-18 13:03 | P.PNIM_ITS ---
Subjective Subjective Date of Service: 01/18/22 Interval History: Possible CBD stone, post ERCP pancreatitis. Review of Systems Patient still has abdominal pain epigastric and feel nauseated Denies any chest pain or shortness of breath or fever chills. Physical Exam Vital Signs: Vital Signs: Last Vital Signs Temp 97.3 F 01/18/22 07:44 Pulse 76 01/18/22 07:44 Resp 18 01/18/22 07:44 BP 142/62 H 01/18/22 07:44 Pulse Ox 91 L 01/18/22 07:44 O2 Del Method 01/18/22 07:44 O2 Flow Rate 2 01/18/22 07:44 BMI result Body Mass Index 37.8 Appearance: Alert.? Oriented X3.? not in distress.? cvs: rrr, [id number] , no murmur res: air entry fair , has wheezing abd: no rebound or guarding ,epigastric/ruq pain, bs present. ext pulses present , no cyanosis . neuro: axo3 , nonfocal. Objective Data Active Medications Albuterol/Ipratropium (Albuterol/Iprat 2.5/0.5mg 3 Ml Ampul.Neb) 3 ml INHALE RQ4H WHILE AWAKE [facility] Last Admin: 01/18/22 11:38 Dose: Not Given Documented By: SELAM Non-Admin Reason: Patient Refused Albuterol/Ipratropium (Albuterol/Iprat 2.5/0.5mg 3 Ml Ampul.Neb) 3 ml INHALE RQ4H PRN PRN Reason: Shortness of Breath Enoxaparin Sodium (Enoxaparin Sodium 40 Mg/0.4 Ml Syringe) 40 mg SUBCUT Q24H [facility] Last Admin: 01/18/22 09:08 Dose: 40 mg Documented By: CAROLE Fentanyl (Fentanyl Citrate/Pf 100 Mcg/2 Ml Vial) 50 mcg IVPUSH Q5M PRN; Protocol PRN Reason: Pain, Severe (Pain Scale 7-10) Hydromorphone HCl (Hydromorphone Hcl 0.5 Mg/0.5 Ml Syringe) 0.5 mg IVPUSH Q3H PRN; Protocol PRN Reason: Pain, Severe (Pain Scale 7-10) Last Admin: 01/18/22 11:05 Dose: 0.5 mg Documented By: CAROLE Ceftriaxone Sodium 1 gm/ (Sodium Chloride) 50 mls @ 100 mls/hr IV Q24H [facility] Last Infusion: 01/18/22 06:54 Dose: 0 mls/hr Documented By: KENNEDY Metronidazole (Flagyl) 500 mg in 100 mls @ 100 mls/hr IV Q8H [facility] Last Infusion: 01/18/22 10:24 Dose: 0 mls/hr Documented By: CAROLE Lactated Ringer's (Lr) 1,000 mls @ 125 mls/hr IVCONT .Q8H [facility] Last Admin: 01/18/22 06:52 Dose: 100 mls/hr Documented By: KENNEDY Promethazine HCl 12.5 mg/ (Sodium Chloride) 50.5 mls @ 202 mls/hr IV ONCE PRN PRN Reason: Nausea and Vomiting Levothyroxine Sodium (Levothyroxine Sodium 75 Mcg Tablet) 75 mcg PO DAILY@0600 [facility] Last Admin: 01/18/22 06:15 Dose: 75 mcg Documented By: KENNEDY Mirabegron (Mirabegron 25 Mg Tab.Er.24h) 25 mg PO DAILY [facility] Last Admin: 01/18/22 09:08 Dose: 25 mg Documented By: CAROLE Pt Own (Fluticasone Propionate [Flovent Hfa] 44 Mcg/Actuation Hfa Aeroso 1 puff INHALE RBID [facility] Last Admin: 01/18/22 09:09 Dose: Not Given Documented By: CAROLE Non-Admin Reason: Patient Refused Omeprazole (Omeprazole 20 Mg Shaun.) 20 mg PO DAILY@0630 [facility] Last Admin: 01/18/22 06:15 Dose: 20 mg Documented By: KENNEDY Ondansetron HCl (Ondansetron Hcl 4 Mg/2 Ml Vial) 4 mg IVPUSH Q8H PRN PRN Reason: Nausea and Vomiting Last Admin: 01/18/22 11:15 Dose: 4 mg Documented By: CAROLE Sodium Chloride (0.9 % Sodium Chloride Flush 3 Ml Syringe) 3 ml IVFLUSH QSHIFT [facility] Last Admin: 01/18/22 09:09 Dose: 3 ml Documented By: CAROLE Labs CBC & Chem 7: 01/18/22 06:59 09/10/22 06:59 Labs: Laboratory Results - last 24 hr 01/18/22 01/18/22 01/18/22 06:59 06:59 06:59 MCV 87.1 MCH 27.7 MCHC 31.8 RDW 14.1 Plt Count 269 MPV 11.1 Immature Gran % (Auto) 0.6 H Neut % (Auto) 94.2 H Lymph % (Auto) 1.5 L [place] % (Auto) 3.4 Eos % (Auto) 0.1 Baso % (Auto) 0.2 Lymph # (Auto) 0.2 L [place] # (Auto) 0.4 Eos # (Auto) 0.0 Baso # (Auto) 0.0 Abs Immat Gran (auto) 0.08 H Absolute Neuts (auto) 11.9 H Absolute Nucleated RBC 0.000 Nucleated RBC % (auto) 0.0 Smear Tech's Comments VERIFIED Anion Gap 18 Estim Creat Clear Calc 64.0 Estimated GFR > 60 Random Glucose 252 H Calcium 8.1 L Total Bilirubin 3.8 H Direct Bilirubin 3.1 H AST 292 H ALT 508 H Alkaline Phosphatase 477 H Total Protein 5.8 L Albumin 3.3 L Amylase 1148 H Lipase 3156 H Assessment and Plan (1) Post-ERCP acute pancreatitis: Status: Acute (2) Common bile duct (CBD) obstruction: Status: Acute Plan 76 year old female with history of mild persistent asthma, hypothyroidism, gerd, hiatal hernia, bilateral calcific tendonitis, and urge incontinence to be obsesrved for elevated LFTs and biliary colic. 1- Acute Biliary colic with elevated LFTs intial workup:US/CT abd/pelvis with cholelithiasis but no obstruction or cholecystitis Bilirubin is slightly up than yesterday, AST ALT trending down, alk-phos slightly up -PRN ondansetron for n/v,CIV LR x24 hr,Follow LFT. has ercp yesterday seems like have post ERCP pancreatitis. continue ceftriaxone and Flagyl. 2-Acute UTI -US showed positive nitrites, 4+ bacteria, neg leuks, neg blood. UC pending -No leukocytosis. Afebrile -IV ceftriaxone -Purewick in place with frothing dark yellow/orange urine, repeat UA. 3-Mild persistent asthma without acute exacerbation -Continue flovent -ALbuterol neb prn 4-Hypothyroidism- stable -Continue levothyroxine 5-GERD- stable -EGD 07/01 with strictures with balloon dilitation -Continiue omeprazole DVT prophylaxis- lovenox ? Need for inpatient:? CBD stone and post ERCP pancreatitis: Requiring IV hydration bowel rest and IV pain medication as well antibiotics. Quality Stroke Does the patient have a stroke diagnosis?: No VTE Prior VTE?: No VTE Risk Level:: Medical - moderate - high VTE Device Contraindication: Treatment Not Indicated VTE Drug Contraindication: N/A - Med Ordered
[2022-01-18 15:42] VITALS: BP 145/90; PULSE 87; RESP 19; TEMP 36.6; O2SAT 92
[2022-01-18] MEDS: Lactated Ringers 1,000 ML 125 ML IVCONT (16:01)
[2022-01-18 19:32] VITALS: BP 136/78; PULSE 88; RESP 19; TEMP 36.6; O2SAT 92
[2022-01-18 20:40] VITALS: PULSE 66; RESP 20; O2SAT 94
[2022-01-18 23:22] VITALS: BP 141/85; PULSE 98; RESP 20; TEMP 36.5; O2SAT 92
[2022-01-19] MEDS: HYDROmorphone HCl 0.5 MG/0.5 ML SYRINGE IVPUSH ×7 (01:37→23:49)
[2022-01-19] MEDS: Lactated Ringers 1,000 ML 125 ML IVCONT ×2 (01:38→10:43)
[2022-01-19 03:15] VITALS: BP 164/91; PULSE 89; RESP 20; TEMP 36.6; O2SAT 92
[2022-01-19] MEDS: Ketorolac Tromethamine 15 MG/ML VIAL IVPUSH (03:39)
[2022-01-19] MEDS: Levothyroxine Sodium 75 MCG TABLET PO (05:20)
[2022-01-19] MEDS: Omeprazole 20 MG CAPSULE.DR PO (05:20)
[2022-01-19] MEDS: cefTRIAXone sodium 1 GM in 0.9 % Sodium Chloride 50 ML IV (05:39)
[2022-01-19 05:49] LABS: Hematocrit 43.4 % (37.0-47.0); Hemoglobin 14.1 g/dl (12.0-16.0); Mean Corpuscular HGB Conc 32.5 g/dl (31.0-35.0); Mean Corpuscular Hemoglobin 28.1 pg (27.0-33.0); Mean Corpuscular Volume 86.5 fL (80.0-98.0); Platelet Count 308 X10*3/uL (160-400); Red Blood Count 5.02 X10*6/uL (4.20-5.50); Red Cell Distribution Width 14.3 % (11.0-16.0); White Blood Count 20.5 X10*3/uL (4.8-10.8)
[2022-01-19] MEDS: ondansetron HCL 4 MG/2 ML VIAL IVPUSH ×3 (06:14→23:49)
[2022-01-19 06:20] LABS: Alanine Aminotransferase 358 U/L (0-31); Albumin Level 3.2 g/dL (3.5-5.0); Alkaline Phosphatase 395 U/L (39-117); Anion Gap 20 (12-20); Aspartate Amino Transferase 140 U/L (5-31); Bilirubin Direct 1.4 mg/dL (0.0-0.5); Bilirubin Total 2.1 mg/dL (0.0-1.0); Blood Urea Nitrogen 17 mg/dL (9-16); Calcium 7.3 mg/dL (8.4-10.2); Carbon Dioxide 22 mmol/L (22-29); Chloride 101 mmol/L (96-108); Estimated Glomerular Filt Rate > 60; Glucose Random 225 mg/dL (60-115); Potassium 3.7 mmol/L (3.3-5.1); Sodium 139 mmol/L (135-145); Total Protein 5.7 g/dL (6.5-8.0)
[2022-01-19 07:52] LABS: Amylase 1107 U/L (28-100)
[2022-01-19 08:00] VITALS: BP 100/76; PULSE 91; RESP 16; TEMP 37.3; O2SAT 90
[2022-01-19 08:11] LABS: Lipase 1735 U/L (8-78)
[2022-01-19] MEDS: metroNIDAZOLE/NS 500 MG/100 ML PIGGYBACK 100 MG IV ×2 (08:39→15:23)
[2022-01-19] MEDS: Mirabegron 25 MG TAB.ER.24H PO (08:40)
[2022-01-19] MEDS: Albuterol/Iprat 2.5/0.5MG 3 ML AMPUL.NEB INHALE (09:07)
[2022-01-19 09:11] VITALS: PULSE 96; RESP 18; O2SAT 95
--- NOTE | 2022-01-19 10:10 | P.PNIM_ITS ---
Subjective Subjective Date of Service: 01/19/22 Interval History: abd pain, persistent nausea vomiting, hematuria Review of Systems Has hematuria episode overnight, still persistently having nausea vomiting and able to tolerate diet. Abdominal pain though slightly better No fever or chills Physical Exam Vital Signs: Vital Signs: Last Vital Signs Temp 99.2 F 01/19/22 08:00 Pulse 96 01/19/22 09:11 Resp 18 01/19/22 09:11 BP 100/76 01/19/22 08:00 Pulse Ox 90 L 01/19/22 08:00 O2 Del Method 01/19/22 08:00 O2 Flow Rate 3.0 01/19/22 08:00 BMI result Body Mass Index 37.8 ? Appearance: Alert.? Oriented X3.? not in distress.? cvs: rrr, [id number] . res: air entry fair , has wheezing abd: no rebound or guarding ,epigastric/ruq pain, bs present. ext pulses present , no cyanosis . neuro: axo3 , nonfocal. Objective Data Active Medications Albuterol/Ipratropium (Albuterol/Iprat 2.5/0.5mg 3 Ml Ampul.Neb) 3 ml INHALE RQ4H PRN PRN Reason: Shortness of Breath Last Admin: 01/19/22 09:07 Dose: 3 ml Documented By: SELAM Enoxaparin Sodium (Enoxaparin Sodium 40 Mg/0.4 Ml Syringe) 40 mg SUBCUT Q24H [facility] Last Admin: 01/18/22 09:08 Dose: 40 mg Documented By: CAROLE Fentanyl (Fentanyl Citrate/Pf 100 Mcg/2 Ml Vial) 50 mcg IVPUSH Q5M PRN; Protocol PRN Reason: Pain, Severe (Pain Scale 7-10) Hydromorphone HCl (Hydromorphone Hcl 0.5 Mg/0.5 Ml Syringe) 0.5 mg IVPUSH Q3H PRN; Protocol PRN Reason: Pain, Severe (Pain Scale 7-10) Last Admin: 01/19/22 08:40 Dose: 0.5 mg Documented By: DENISSE Ceftriaxone Sodium 1 gm/ (Sodium Chloride) 50 mls @ 100 mls/hr IV Q24H [facility] Last Infusion: 01/19/22 06:10 Dose: 0 mls/hr Documented By: KENNEDY Metronidazole (Flagyl) 500 mg in 100 mls @ 100 mls/hr IV Q8H [facility] Last Infusion: 01/19/22 09:45 Dose: 0 mls/hr Documented By: DENISSE Lactated Ringer's (Lr) 1,000 mls @ 125 mls/hr IVCONT .Q8H [facility] Last Admin: 01/19/22 01:38 Dose: 125 mls/hr Documented By: KENNEDY Promethazine HCl 12.5 mg/ (Sodium Chloride) 50.5 mls @ 202 mls/hr IV ONCE PRN PRN Reason: Nausea and Vomiting Levothyroxine Sodium (Levothyroxine Sodium 75 Mcg Tablet) 75 mcg PO DAILY@0600 [facility] Last Admin: 01/19/22 05:20 Dose: 75 mcg Documented By: KENNEDY Mirabegron (Mirabegron 25 Mg Tab.Er.24h) 25 mg PO DAILY [facility] Last Admin: 01/19/22 08:40 Dose: 25 mg Documented By: DENISSE Pt Own (Fluticasone Propionate [Flovent Hfa] 44 Mcg/Actuation Hfa Aeroso 1 puff INHALE RBID [facility] Last Admin: 01/19/22 09:08 Dose: 1 puff Documented By: SELAM Comments: requested by nurse Omeprazole (Omeprazole 20 Mg Capsule.Dr) 20 mg PO DAILY@0630 [facility] Last Admin: 01/19/22 05:20 Dose: 20 mg Documented By: KENNEDY Ondansetron HCl (Ondansetron Hcl 4 Mg/2 Ml Vial) 4 mg IVPUSH Q8H PRN PRN Reason: Nausea and Vomiting Last Admin: 01/19/22 06:14 Dose: 4 mg Documented By: KENNEDY Sodium Chloride (0.9 % Sodium Chloride Flush 3 Ml Syringe) 3 ml IVFLUSH QSHIFT [facility] Last Admin: 01/19/22 08:49 Dose: Not Given Documented By: DENISSE Non-Admin Reason: IV Running Labs CBC & Chem 7: 01/19/22 05:33 01/19/22 05:33 Labs: Laboratory Results - last 24 hr 01/19/22 01/19/22 05:33 05:33 MCV 86.5 MCH 28.1 MCHC 32.5 RDW 14.3 Plt Count 308 MPV 11.0 Absolute Nucleated RBC 0.000 Nucleated RBC % (auto) 0.0 Anion Gap 20 Estim Creat Clear Calc 64.0 Estimated GFR > 60 Random Glucose 225 H Calcium 7.3 L D Total Bilirubin 2.1 H Direct Bilirubin 1.4 H AST 140 H ALT 358 H Alkaline Phosphatase 395 H Total Protein 5.7 L Albumin 3.2 L Amylase 1107 H Lipase 1735 H Assessment and Plan (1) Post-ERCP acute pancreatitis: Status: Acute (2) Common bile duct (CBD) obstruction: Status: Acute (3) Elevated LFTs: Status: Acute (4) Nausea & vomiting: Status: Acute Plan 76 year old female with history of mild persistent asthma, hypothyroidism, gerd, hiatal hernia, bilateral calcific tendonitis, and urge incontinence to be obsesrved for elevated LFTs and biliary colic. 1- Acute Biliary colic with elevated LFTs, post ERCP pancreatitis. intial workup:US/CT abd/pelvis with cholelithiasis but no obstruction or cholecystitis Bilirubin is slightly up than yesterday, lft's ,lipase trening down has ercp 01/17/22 seems like have post ERCP pancreatitis. unable to tolerate food -due to persistent nausea/vomitin continue npo ,iv fluids ,ppi,zofran/phergan ceftriaxone and Flagyl. 2-Acute UTI wbc trending up, no fever ,abd pain improvin-possible abc trending up sec to pancreatitis/uti,also reactive to persitent nausea/vomiting -US showed positive nitrites, 4+ bacteria, neg leuks, neg blood cultures . UC - mixed josette -No leukocytosis. Afebrile -IV ceftriaxone hematuria episode ,h/h stable , repeat UA. 3-Mild persistent asthma without acute exacerbation -Continue flovent -ALbuterol neb prn 4-Hypothyroidism- stable -Continue levothyroxine 5-GERD- stable -EGD 07/01 with strictures with balloon dilitation -Continiue omeprazole DVT prophylaxis- lovenox ? Need for inpatient:? CBD stone and post ERCP pancreatitis,persitent n ausea/vomiting- Requiring IV hydration bowel rest and IV pain medication as well antibiotics. Quality Stroke Does the patient have a stroke diagnosis?: No VTE Prior VTE?: No VTE Risk Level:: Medical - moderate - high VTE Device Contraindication: Treatment Not Indicated VTE Drug Contraindication: N/A - Med Ordered
[2022-01-19] MEDS: Enoxaparin Sodium 40 MG/0.4 ML SYRINGE SUBCUT (10:43)
--- NOTE | 2022-01-19 10:50 | P.PNGS_ITS ---
Subjective Subjective Date of Service: 01/19/22 Patient reports: still having pain Interval history: The patient denies any interval change in continues to report epigastric pain. She also reports nausea but no vomiting. She otherwise denies chest pain, difficulty breathing or shortness of breath. Physical Exam Vital Signs: Vital Signs: Last Vital Signs Temp 99.2 F 01/19/22 08:00 Pulse 96 01/19/22 09:11 Resp 18 01/19/22 09:11 BP 100/76 01/19/22 08:00 Pulse Ox 90 L 01/19/22 08:00 O2 Del Method 01/19/22 08:00 O2 Flow Rate 3.0 01/19/22 08:00 BMI result Body Mass Index 37.8 On exam, she is uncomfortable but not acutely ill Sclera are anicteric, conjunctiva pink and moist Abdomen is obese with epigastric tenderness with no peritoneal irritation to percussion No guarding is present Objective Data Active Medications Albuterol/Ipratropium (Albuterol/Iprat 2.5/0.5mg 3 Ml Ampul.Neb) 3 ml INHALE RQ4H PRN PRN Reason: Shortness of Breath Last Admin: 01/19/22 09:07 Dose: 3 ml Documented By: SELAM Enoxaparin Sodium (Enoxaparin Sodium 40 Mg/0.4 Ml Syringe) 40 mg SUBCUT Q24H [facility] Last Admin: 01/19/22 10:43 Dose: 40 mg Documented By: DENISSE Fentanyl (Fentanyl Citrate/Pf 100 Mcg/2 Ml Vial) 50 mcg IVPUSH Q5M PRN; Protocol PRN Reason: Pain, Severe (Pain Scale 7-10) Hydromorphone HCl (Hydromorphone Hcl 0.5 Mg/0.5 Ml Syringe) 0.5 mg IVPUSH Q3H PRN; Protocol PRN Reason: Pain, Severe (Pain Scale 7-10) Last Admin: 01/19/22 08:40 Dose: 0.5 mg Documented By: DENISSE Ceftriaxone Sodium 1 gm/ (Sodium Chloride) 50 mls @ 100 mls/hr IV Q24H [facility] Last Infusion: 01/19/22 06:10 Dose: 0 mls/hr Documented By: KENNEDY Metronidazole (Flagyl) 500 mg in 100 mls @ 100 mls/hr IV Q8H [facility] Last Infusion: 01/19/22 09:45 Dose: 0 mls/hr Documented By: DENISSE Lactated Ringer's (Lr) 1,000 mls @ 125 mls/hr IVCONT .Q8H [facility] Last Admin: 01/19/22 10:43 Dose: 125 mls/hr Documented By: DENISSE Promethazine HCl 12.5 mg/ (Sodium Chloride) 50.5 mls @ 202 mls/hr IV ONCE PRN PRN Reason: Nausea and Vomiting Levothyroxine Sodium (Levothyroxine Sodium 75 Mcg Tablet) 75 mcg PO DAILY@0600 [facility] Last Admin: 01/19/22 05:20 Dose: 75 mcg Documented By: KENNEDY Mirabegron (Mirabegron 25 Mg Tab.Er.24h) 25 mg PO DAILY [facility] Last Admin: 01/19/22 08:40 Dose: 25 mg Documented By: DENISSE Pt Own (Fluticasone Propionate [Flovent Hfa] 44 Mcg/Actuation Hfa Aeroso 1 puff INHALE RBID [facility] Last Admin: 01/19/22 09:08 Dose: 1 puff Documented By: SELAM Comments: requested by nurse Omeprazole (Omeprazole 20 Mg Capsule.Dr) 20 mg PO DAILY@0630 [facility] Last Admin: 01/19/22 05:20 Dose: 20 mg Documented By: KENNEDY Ondansetron HCl (Ondansetron Hcl 4 Mg/2 Ml Vial) 4 mg IVPUSH Q8H PRN PRN Reason: Nausea and Vomiting Last Admin: 01/19/22 06:14 Dose: 4 mg Documented By: KENNEDY Pantoprazole Sodium (Pantoprazole Sodium 40 Mg/10 Ml Vial) 40 mg IVPUSH BI D@0630,1630 [facility] Sodium Chloride (0.9 % Sodium Chloride Flush 3 Ml Syringe) 3 ml IVFLUSH QSHIFT [facility] Last Admin: 01/19/22 08:49 Dose: Not Given Documented By: DENISSE Non-Admin Reason: IV Running Labs CBC & Chem 7: 01/19/22 05:33 01/19/22 05:33 Labs: Laboratory Results - last 24 hr 01/19/22 01/19/22 05:33 05:33 MCV 86.5 MCH 28.1 MCHC 32.5 RDW 14.3 Plt Count 308 MPV 11.0 Absolute Nucleated RBC 0.000 Nucleated RBC % (auto) 0.0 Anion Gap 20 Estim Creat Clear Calc 64.0 Estimated GFR > 60 Random Glucose 225 H Calcium 7.3 L D Total Bilirubin 2.1 H Direct Bilirubin 1.4 H AST 140 H ALT 358 H Alkaline Phosphatase 395 H Total Creatine Kinase 21 L D Total Protein 5.7 L Albumin 3.2 L Amylase 1107 H Lipase 1735 H Procedures Date of Service Date of Service: 01/19/22 Progress Note: A&P Assessment and plan (1) Post-ERCP acute pancreatitis: Status: Acute (2) Common bile duct (CBD) obstruction: Status: Acute (3) Acute cholecystitis: Status: Acute (4) Nausea & vomiting: Status: Acute (5) Obesity (BMI 30-39.9): Status: Acute (6) Mild persistent asthma: Status: Acute (7) Elevated LFTs: Status: Acute (8) Biliary colic: Status: Acute (9) GILDA (obstructive sleep apnea): Status: Acute Plan Post ERCP pancreatitis: White blood cell count going up. No clinical im provement. Continue NPO except for ice chips and notify Gastroenterology. May need CT abdomen and pelvis if she does not clinically improve in the expected time frame. Continue present management Time Spent With Patient Time: Total time spent is greater than 50% in coordination of care (as documented) at patient's floor/unit and/or counseling patient: Quality Stroke Does the patient have a stroke diagnosis?: No VTE Prior VTE?: No VTE Risk Level:: Medical - moderate - high VTE Device Contraindication: Treatment Not Indicated VTE Drug Contraindication: N/A - Med Ordered
[2022-01-19] MEDS: Pantoprazole Sodium 40 MG/10 ML VIAL IVPUSH ×2 (11:39→15:30)
[2022-01-19 11:44] VITALS: BP 119/83; PULSE 94; RESP 14; TEMP 36.6; O2SAT 92
[2022-01-19] MEDS: 0.9 % Sodium Chloride Flush 3 ML SYRINGE IVFLUSH (15:25)
[2022-01-19 15:56] VITALS: BP 132/75; PULSE 100; RESP 17; TEMP 37.4; O2SAT 95
[2022-01-19 19:23] VITALS: BP 140/87; PULSE 100; RESP 17; TEMP 36.6; O2SAT 93
[2022-01-19 19:45] LABS: Basophils Absolute Auto 0.1 X10*3/uL (0.0-0.2); Basophils Percent Auto 0.3 % (0-2); Hematocrit 43.6 % (37.0-47.0); Hemoglobin 14.3 g/dl (12.0-16.0); Imm Gran Abs Auto 0.16 X10*3/uL (0.00-0.03); Imm Gran Pct Auto 0.6 % (0.0-0.4); Lymphocytes Absolute Auto 0.5 X10*3/uL (1.2-4.9); Lymphocytes Percent Auto 1.8 % (20-40); MANUAL DIFF FLAG SCAN; Mean Corpuscular HGB Conc 32.8 g/dl (31.0-35.0); Mean Corpuscular Hemoglobin 27.7 pg (27.0-33.0); Mean Corpuscular Volume 84.5 fL (80.0-98.0); Mean Platelet Volume 10.9 fL (9.4-12.3); Monocytes Percent Auto 3.6 % (2-11); Neutrophils Absolute Auto 25.7 x10*3/uL (2.0-8.3); Neutrophils Percent Auto 93.7 % (45-73); Platelet Count 365 X10*3/uL (160-400); Red Blood Count 5.16 X10*6/uL (4.20-5.50); Red Cell Distribution Width 14.6 % (11.0-16.0); SCAN SMEAR FLAG 1; White Blood Count 27.4 X10*3/uL (4.8-10.8)
[2022-01-19 20:08] LABS: SLIDE REVIEW VERIFIED
[2022-01-19] MEDS: Lactated Ringers 1,000 ML 150 ML IVCONT (23:58)
[2022-01-20] VITALS (15 sets, daily range): BP systolic 130–159; BP diastolic 65–79; PULSE 90–105; RESP 17–24; TEMP 36.6–37.4; O2SAT 86–95; BMI 37.8
--- NOTE | 2022-01-20 | ECG_ITS ---
Test Reason : HYPOKELMIC Blood Pressure : / mmHG Vent. Rate : 097 BPM Atrial Rate : 097 BPM P-R Int : 110 ms QRS Dur : 086 ms QT Int : 378 ms P-R-T Axes : 048 046 049 degrees QTc Int : 480 ms Sinus rhythm with short IN Otherwise normal ECG When compared with ECG of 27-AUG-2021 17:17, IN interval has decreased Referred By: Padmini Castelan Electronically Signed By:THELMA CARMEN
[2022-01-20] MEDS: metroNIDAZOLE/NS 500 MG/100 ML PIGGYBACK 100 MG IV ×4 (00:01→22:50)
[2022-01-20] MEDS: Albuterol/Iprat 2.5/0.5MG 3 ML AMPUL.NEB INHALE ×2 (00:58→19:41)
[2022-01-20] MEDS: Morphine Sulfate 4 MG/ML CARTRIDGE IVPUSH (01:51)
[2022-01-20 03:18] LABS: B Type Natriuretic Peptide 53 pg/mL (<100)
[2022-01-20] MEDS: HYDROmorphone HCl 0.5 MG/0.5 ML SYRINGE IVPUSH ×7 (04:14→22:49)
--- NOTE | 2022-01-20 04:52 | PC.NURSE ---
Addendum entered by Aicha Leal RN 01/20/22 06:03: Pt throw up after taking her morning po med with coffee black in small amount, pt denies bening nauseous. reiterated importance being NPO. Original Note: Pt noted at start of the shift with frequent burping up of coffee black secretions, despite of that pt still moaned and asked for water to drink which was given to her sparingly, pt was educated about NPO status, pt is alert and oriented x2-3, very forgetful, and unable and/or refused to comprehend teachings regarding hospitalization, with her frequent burping pt regurgitated moderate amount of black vomitus around midnight and then verbalized she can't breathe and she's choking, attempted to suction but able to clear up self, also noted with increased restlessness and desating at 86% with 3L/min O2 via NC, audible wheezing and crackles noted, pt noted becoming mildy dusky red, O2 increased to 5L/min via NC, called Respiratory therapist and gave updraft, called Dr. Delacruz to bedside, pt had relief on the updraft and noted O2 sats at 93-94% with 5L/min O2, After the updraft was done later pt was still restless and agitated demanding for water to drink, reiterated danger for aspiration at this time but pt still moaned and cries for water, O2 sats again noted to be lingering at 90%, O2 increased to 8L with no much effect, so increased again to 10L/min via NC, pt cont to be restless, anotehr updraft done by Respiratory therapist, updated, CXR done, Morphine IV given, BNP drawn, IVF put on pause, pt slept for an hour and O2 sats went to high 90s later , woke up and again asking for water to drink, water swab provided, but unsatiaeted. BNP was 54 and CXR showed no edema , Dr. Delacruz was notified, IVF resumed.
[2022-01-20] MEDS: Levothyroxine Sodium 75 MCG TABLET PO (05:49)
[2022-01-20] MEDS: Pantoprazole Sodium 40 MG/10 ML VIAL IVPUSH ×2 (05:49→17:14)
[2022-01-20] MEDS: cefTRIAXone sodium 1 GM in 0.9 % Sodium Chloride 50 ML IV (05:49)
[2022-01-20 06:48] LABS: Hematocrit 42.4 % (37.0-47.0); Hemoglobin 13.6 g/dl (12.0-16.0); Mean Corpuscular HGB Conc 32.1 g/dl (31.0-35.0); Mean Corpuscular Hemoglobin 27.9 pg (27.0-33.0); Mean Corpuscular Volume 86.9 fL (80.0-98.0); Mean Platelet Volume 11.7 fL (9.4-12.3); Platelet Count 343 X10*3/uL (160-400); Red Blood Count 4.88 X10*6/uL (4.20-5.50); Red Cell Distribution Width 14.9 % (11.0-16.0); White Blood Count 23.5 X10*3/uL (4.8-10.8)
[2022-01-20 07:15] LABS: Anion Gap 23 (12-20); Carbon Dioxide 17 mmol/L (22-29); Chloride 99 mmol/L (96-108); Creatinine Clr Calc Pharmacy 31.6; Estimated Glomerular Filt Rate 32; Glucose Random 273 mg/dL (60-115); Potassium 4.3 mmol/L (3.3-5.1); Sodium 135 mmol/L (135-145)
[2022-01-20 07:16] LABS: Alanine Aminotransferase 203 U/L (0-31); Alkaline Phosphatase 288 U/L (39-117); Aspartate Amino Transferase 62 U/L (5-31); Bilirubin Direct 0.8 mg/dL (0.0-0.5); Bilirubin Total 1.4 mg/dL (0.0-1.0); Blood Urea Nitrogen 39 mg/dL (9-16); Total Protein 5.7 g/dL (6.5-8.0)
[2022-01-20] MEDS: Lactated Ringers 1,000 ML 150 ML IVCONT ×2 (07:30→14:53)
[2022-01-20] MEDS: Mirabegron 25 MG TAB.ER.24H PO (07:32)
[2022-01-20] MEDS: ondansetron HCL 4 MG/2 ML VIAL IVPUSH (07:38)
--- NOTE | 2022-01-20 09:03 | P.PNGS_ITS ---
Subjective Subjective Date of Service: 01/21/22 Interval history: She had been having nausea and abdominal pain after ERCP Seems to be a little more confused Lipase has been elevated over the weekend Physical Exam Vital Signs: Vital Signs: Last Vital Signs Temp 98.0 F 01/20/22 08:00 Pulse 96 01/20/22 08:00 Resp 18 01/20/22 08:00 BP 134/78 01/20/22 08:00 Pulse Ox 92 01/20/22 08:00 O2 Del Method 01/20/22 08:00 O2 Flow Rate 10 01/20/22 08:00 BMI result Body Mass Index 37.8 Const: Other: Appears a little confused although answering simple questions Resp: Effort & Inspection: normal respiratory effort Cardio: Rate: regular rate GI: Palpation (GI): Soft to palpation, no guarding and not rigid Objective Data Active Medications Albuterol/Ipratropium (Albuterol/Iprat 2.5/0.5mg 3 Ml Ampul.Neb) 3 ml INHALE RQ4H PRN PRN Reason: Shortness of Breath Last Admin: 01/19/22 09:07 Dose: 3 ml Documented By: SELAM Enoxaparin Sodium (Enoxaparin Sodium 40 Mg/0.4 Ml Syringe) 40 mg SUBCUT Q24H UYEN Last Admin: 01/19/22 10:43 Dose: 40 mg Documented By: DENISSE Hydromorphone HCl (Hydromorphone Hcl 0.5 Mg/0.5 Ml Syringe) 0.5 mg IVPUSH Q3H PRN; Protocol PRN Reason: Pain, Severe (Pain Scale 7-10) Last Admin: 01/20/22 07:33 Dose: 0.5 mg Documented By: DENISSE Ceftriaxone Sodium 1 gm/ (Sodium Chloride) 50 mls @ 100 mls/hr IV Q24H UYEN Last Infusion: 01/20/22 06:37 Dose: 0 mls/hr Documented By: ROSS Metronidazole (Flagyl) 500 mg in 100 mls @ 100 mls/hr IV Q8H UYEN Last Admin: 01/20/22 07:31 Dose: 100 mls/hr Documented By: DENISSE Lactated Ringer's (Lr) 1,000 mls @ 150 mls/hr IVCONT .Q6H40M UYEN Last Admin: 01/20/22 07:30 Dose: 150 mls/hr Documented By: DENISSE Calcium Gluconate (Calcium Gluconate) 2 gm in 100 mls @ 50 mls/hr IV ONCE ONE Stop: 01/20/22 10:59 Levothyroxine Sodium (Levothyroxine Sodium 75 Mcg Tablet) 75 mcg PO DAILY@0600 [facility] Last Admin: 01/20/22 05:49 Dose: 75 mcg Documented By: ROSS Mirabegron (Mirabegron 25 Mg Tab.Er.24h) 25 mg PO DAILY [facility] Last Admin: 01/20/22 07:32 Dose: 25 mg Documented By: DENISSE Pt Own (Fluticasone Propionate [Flovent Hfa] 44 Mcg/Actuation Hfa Aeroso 1 puff INHALE RBID [facility] [place] Last Admin: 01/20/22 00:13 Dose: Not Given Documented By: ROSS Non-Admin Reason: Med Not Available Omeprazole (Omeprazole 20 Mg Capsule.) 20 mg PO DAILY@0630 [facility] Last Admin: 01/19/22 05:20 Dose: 20 mg Documented By: KENNEDY Ondansetron HCl (Ondansetron Hcl 4 Mg/2 Ml Vial) 4 mg IVPUSH Q8H PRN PRN Reason: Nausea and Vomiting Last Admin: 01/20/22 07:38 Dose: 4 mg Documented By: DENISSE Pantoprazole Sodium (Pantoprazole Sodium 40 Mg/10 Ml Vial) 40 mg IVPUSH BID@0630,1630 [facility] [place] Last Admin: 01/20/22 05:49 Dose: 40 mg Documented By: ROSS Sodium Chloride (0.9 % Sodium Chloride Flush 3 Ml Syringe) 3 ml IVFLUSH QSHIFT [facility] [place] Last Admin: 01/20/22 07:30 Dose: Not Given Documented By: DENISSE Non-Admin Reason: IV Running Labs CBC & Chem 7: 01/20/22 05:55 01/20/22 21:09 Labs: Laboratory Results - last 24 hr 01/19/22 01/19/22 01/20/22 05:33 19:37 02:01 MCV 84.5 MCH 27.7 MCHC 32.8 RDW 14.6 Plt Count 365 MPV 10.9 Immature Gran % (Auto) 0.6 H Neut % (Auto) 93.7 H Lymph % (Auto) 1.8 L Henry % (Auto) 3.6 Eos % (Auto) 0.0 Baso % (Auto) 0.3 Lymph # (Auto) 0.5 L Henry # (Auto) 1.0 Eos # (Auto) 0.0 Baso # (Auto) 0.1 Abs Immat Gran (auto) 0.16 H Absolute Neuts (auto) 25.7 H Absolute Nucleated RBC 0.000 Nucleated RBC % (auto) 0.0 Smear Tech's Comments VERIFIED Anion Gap Estim Creat Clear Calc Estimated GFR Random Glucose Calcium Total Bilirubin Direct Bilirubin AST ALT Alkaline Phosphatase Total Creatine Kinase 21 L D B-Natriuretic Peptide 53 Total Protein Albumin 01/20/22 01/20/22 05:55 05:55 MCV 86.9 MCH 27.9 MCHC 32.1 RDW 14.9 Plt Count 343 MPV 11.7 Immature Gran % (Auto) Neut % (Auto) Lymph % (Auto) Henry % (Auto) Eos % (Auto) Baso % (Auto) Lymph # (Auto) Henry # (Auto) Eos # (Auto) Baso # (Auto) Abs Immat Gran (auto) Absolute Neuts (auto) Absolute Nucleated RBC 0.000 Nucleated RBC % (auto) 0.0 Smear Tech's Comments Anion Gap 23 H Estim Creat Clear Calc 31.6 Estimated GFR 32 Random Glucose 273 H Calcium 6.0 L* D Total Bilirubin 1.4 H Direct Bilirubin 0.8 H AST 62 H ALT 203 H Alkaline Phosphatase 288 H D Total Creatine Kinase B-Natriuretic Peptide Total Protein 5.7 L Albumin 3.0 L Procedures Date of Service Date of Service: 01/20/22 Progress Note: A&P Assessment and plan (1) Post-ERCP acute pancreatitis: Status: Acute Assessment and Plan: ERCP last Thursday and CBD stone was removed No cholecystitis on cholangiogram - cystic duct patent Now has posterior ERCP pancreatitis - lipase elevated, with pain and nausea Will need to hold off on any surgical intervention for now because of pancreatitis Follow LFTs lipase Control symptoms Okay to have clear liquids Discussed above with family Time Spent With Patient Time: Total time spent is greater than 50% in coordination of care (as documented) at patient's floor/unit and/or counseling patient: Quality Stroke Does the patient have a stroke diagnosis?: No VTE Prior VTE?: No VTE Risk Level:: Medical - moderate - high VTE Device Contraindication: Treatment Not Indicated VTE Drug Contraindication: N/A - Med Ordered
[2022-01-20] MEDS: Calcium Gluconate/NaCl,Iso-Osm 2 GM/100 ML PLAST..BAG IV ×2 (09:21→19:14)
[2022-01-20] MEDS: Enoxaparin Sodium 40 MG/0.4 ML SYRINGE SUBCUT (09:24)
[2022-01-20 09:26] LABS: Magnesium 1.6 mg/dL (1.6-2.6)
--- NOTE | 2022-01-20 09:37 | PM.CNPUL ---
History of Present Illness History of Present Illness Consult date: 01/20/22 Requesting physician: Nishant Jimenes Reason for consult: hypoxemia Chief complaint: Back pain, nausea vomiting Narrative: This 76 years old female, used to be under my care for treatment of bronchial asthma for many years. Her bronchial asthma was controlled with relatively few meds including Flovent-44 and albuterol p.r.n.. In the past few years she has developed , some depression, intermittent confusional state, and there has been a question of obstructive sleep apnea. In August of this year she was admitted here and treated for COVID pneumonia and luckily recovered well. She did not have COVID vaccine. This time she presented with the nausea, vomiting and pain in the abdomen, with elevated liver enzymes. Diagnosed to have acute cholecystitis due to biliary stone. She is status post ERCP, and hopefully recovering from acute cholecystitis but may have an element of acute pancreatitis. She is also being treated for acute urinary tract infection, Over the past few days her oxygen requirement, has increased currently requiring 10 L/minute. She is becoming more confused. Chest x-ray shows bibasilar atelectasis and poor aeration of the basilar areas. Review of Systems Review of Systems: Yes Unobtainable due to mental condition (Patient is quite confused and anxious at this time) [facility] Past Medical History Medical History (Updated 01/20/22 @ 09:46 by Yoli Moore MD) Acute respiratory failure with hypoxia Colitis Colon cancer screening Depression with anxiety Dysphagia Erosive esophagitis GERD (gastroesophageal reflux disease) Hiatal hernia Hospital discharge follow-up Hypothyroidism Left shoulder pain Mild cognitive impairment Mild persistent asthma with (acute) exacerbation Mild recurrent major depression Morbid obesity Obesity (BMI 30-39.9) GILDA (obstructive sleep apnea) Pure hypercholesterolemia Respiratory distress Toxic encephalopathy Family History Family History Mother Diabetes Hypertension Stroke Father Lung cancer Surgical History Surgical History H/O colonoscopy History of benign ovarian tumor History of esophagogastroduodenoscopy (EGD) Social History Social History Household Members: None Household Members Other:: daughter lives downstairs Housing: House Are you a primary aged or disabled care worker to a significant other at home: No Do you presently have visiting nurse or other home services: Yes (Pt) Alcohol intake: never Patient Tobacco Use Status: Never used Tobacco e-Cigarette/Vaping Use: Never Used Second Hand Smoke Exposure: Yes Advance Directives Date on File: 04/03/20 service: No Current occupational status: retired Current occupation: right handed Cognitive needs: Yes Hearing needs: No Vision needs: No Meds Allergies Allergy/AdvReac Type Severity Reaction Status Date / Time influenza virus vaccine, Allergy Severe SEVERE FLU Verified 11/27/21 13:27 specific SYMPTOMS [Influenza Virus Vacc,Specific] codeine [CODEINE] Allergy Intermediate NAUSEA & Verified 11/27/21 13:27 VOMITING Sulfa (Sulfonamide Allergy Intermediate Hives Verified 11/27/21 13:27 Antibiotics) amoxicillin [Amoxicillin] Allergy Unknown UNKNOWN Verified 11/27/21 13:27 Penicillins Allergy Unknown UNKNOWN Verified 11/27/21 13:27 Active Medications: Current Medications Albuterol/Ipratropium (Albuterol/Iprat 2.5/0.5mg 3 Ml Ampul.Neb) 3 ml INHALE RQ4H PRN PRN Reason: Shortness of Breath Last Admin: 01/20/22 00:58 Dose: 3 ml Enoxaparin Sodium (Enoxaparin Sodium 40 Mg/0.4 Ml Syringe) 40 mg SUBCUT Q24H [facility] Last Admin: 01/20/22 09:24 Dose: 40 mg Hydromorphone HCl (Hydromorphone Hcl 0.5 Mg/0.5 Ml Syringe) 0.5 mg IVPUSH Q3H PRN; Protocol PRN Reason: Pain, Severe (Pain Scale 7-10) Last Admin: 01/20/22 07:33 Dose: 0.5 mg Ceftriaxone Sodium 1 gm/ (Sodium Chloride) 50 mls @ 100 mls/hr IV Q24H [facility] Last Infusion: 01/20/22 06:37 Dose: Infused Metronidazole (Flagyl) 500 mg in 100 mls @ 100 mls/hr IV Q8H [facility] Last Admin: 01/20/22 07:31 Dose: 100 mls/hr Lactated Ringer's (Lr) 1,000 mls @ 150 mls/hr IVCONT .Q6H40M [facility] Last Admin: 01/20/22 07:30 Dose: 150 mls/hr Calcium Gluconate (Calcium Gluconate) 2 gm in 100 mls @ 50 mls/hr IV ONCE ONE Stop: 01/20/22 10:59 Last Admin: 01/20/22 09:21 Dose: 50 mls/hr Levothyroxine Sodium (Levothyroxine Sodium 75 Mcg Tablet) 75 mcg PO DAILY@0600 [facility] Last Admin: 01/20/22 05:49 Dose: 75 mcg Mirabegron (Mirabegron 25 Mg Tab.Er.24h) 25 mg PO DAILY [facility] Last Admin: 01/20/22 07:32 Dose: 25 mg Pt Own (Fluticasone Propionate [Flovent Hfa] 44 Mcg/Actuation Hfa Aeroso 1 puff INHALE RBID [facility] Last Admin: 01/20/22 00:13 Dose: Not Given Omeprazole (Omeprazole 20 Mg Capsule.Dr) 20 mg PO DAILY@0630 [facility] Last Admin: 01/19/22 05:20 Dose: 20 mg Ondansetron HCl (Ondansetron Hcl 4 Mg/2 Ml Vial) 4 mg IVPUSH Q8H PRN PRN Reason: Nausea and Vomiting Last Admin: 01/20/22 07:38 Dose: 4 mg Pantoprazole Sodium (Pantoprazole Sodium 40 Mg/10 Ml Vial) 40 mg IVPUSH BID@0630,1630 [facility] Last Admin: 01/20/22 05:49 Dose: 40 mg Sodium Chloride (0.9 % Sodium Chloride Flush 3 Ml Syringe) 3 ml IVFLUSH QSHIFT [facility] Last Admin: 01/20/22 07:30 Dose: Not Given Home Medications Medication Instructions Recorded Confirmed Last Taken Type fluticasone propionate 44 1 puff inhalation BID 01/15/22 01/15/22 Unknown History mcg/actuation HFA aerosol inhaler (Flovent HFA) levothyroxine 75 mcg tablet 1 tab PO DAILY 01/15/22 01/15/22 Unknown History mirabegron 25 mg tablet,extended 1 tab PO DAILY 01/15/22 01/15/22 Unknown History release 24 hr (Myrbetriq) omeprazole 20 mg capsule,delayed 1 cap PO DAILY 01/15/22 01/15/22 Unknown History release Physical Exam Vital Signs: Vital Signs: Last Vital Signs Temp 98.0 F 01/20/22 08:00 Pulse 96 01/20/22 08:00 Resp 18 01/20/22 08:00 BP 134/78 01/20/22 08:00 Pulse Ox 92 01/20/22 08:00 O2 Del Method 01/20/22 08:00 O2 Flow Rate 10 01/20/22 08:00 BMI result Body Mass Index 37.8 Const: General: no acute distress, alert and awake; No cooperative (Confused) Orientation/consciousness: patient oriented x3 HEENT: Head: Yes normal to inspection (Could not examine) General nose exam: No nasal polyps present and No nasal discharge present Face and sinus: Yes sinuses nontender Mouth: oropharynx normal Throat: Yes posterior oropharynx normal Eyes: General: appearance normal, both eyes and all related structures Neck: Neck: Yes normal visual inspection, Yes no lymphadenopathy, Yes trachea midline, Yes no JVD and Yes other (Neck is quite obese) Thyroid: Thyroid normal Chest: Chest palpation & inspection: normal inspection of the chest, normal palpation of entire chest wall and no tenderness Resp: Other: Percussion note not perceptible over the lower lobes because of thick chest wall. Breath sounds were diminished especially over the lower lobe areas. Patient is not taking deep breaths but there are a few inspiratory crackles over the basilar areas. No wheezes are heard . Cardio: Palpation: normal PMI Rate: regular rate Rhythm: regular rhythm Heart sounds: no gallops and no murmurs GI: Palpation (GI): Soft to palpation, nontender, No hepatosplenomegaly present, no masses and Other GI palpation findings present (Abdomen is grossly obese) Auscultation: normal bowel sounds Back/Spine/Pelvis: Thoracic/Lumbar Spine: thoracic and lumbar spine normal to inspection Skin: General skin exam: no rashes or lesions noted Neuro: General: patient oriented x3 and no focal motor deficits Cranial nerves: Yes CN's II-XII intact bilaterally Extrem: General: Yes normal to inspection, Yes no clubbing, cyanosis or edema and Yes no calf tenderness Psych: Other: Patient is the somewhat confused and non-conversant at this time, Results Laboratory Findings CBC and BMP: 01/20/22 05:55 01/20/22 05:55 Abnormal lab findings: Abnormal Labs 01/14/22 01/15/22 01/15/22 22:56 00:00 03:19 WBC Immature Gran % (Auto) Neut % (Auto) 89.7 H Lymph % (Auto) 4.7 L Lymph # (Auto) 0.5 L Abs Immat Gran (auto) 0.04 H Absolute Neuts (auto) 9.7 H Carbon Dioxide Anion Gap 21 H BUN 19 H Creatinine Random Glucose 273 H Calcium Total Bilirubin 3.1 H Direct Bilirubin AST 508 H ALT 562 H Alkaline Phosphatase 342 H D Total Creatine Kinase Total Protein Albumin Amylase Lipase Urine Nitrite Positive H Ur Leukocyte Esterase Urine RBC 01/16/22 01/16/22 01/17/22 05:45 15:39 08:00 WBC Immature Gran % (Auto) Neut % (Auto) Lymph % (Auto) Lymph # (Auto) Abs Immat Gran (auto) Absolute Neuts (auto) Carbon Dioxide Anion Gap BUN Creatinine Random Glucose 174 H 188 H Calcium 8.3 L Total Bilirubin 1.9 H 3.4 H Direct Bilirubin 1.3 H 2.8 H AST 331 H 438 H ALT 529 H 573 H Alkaline Phosphatase 350 H 438 H D Total Creatine Kinase Total Protein 6.4 L 6.1 L Albumin Amylase Lipase Urine Nitrite Positive H Ur Leukocyte Esterase Small (1+) H Urine RBC 11-20 H 01/18/22 01/18/22 01/18/22 06:59 06:59 06:59 WBC 12.7 H Immature Gran % (Auto) 0.6 H Neut % (Auto) 94.2 H Lymph % (Auto) 1.5 L Lymph # (Auto) 0.2 L Abs Immat Gran (auto) 0.08 H Absolute Neuts (auto) 11.9 H Carbon Dioxide Anion Gap BUN Creatinine Random Glucose 252 H Calcium 8.1 L Total Bilirubin 3.8 H Direct Bilirubin 3.1 H AST 292 H ALT 508 H Alkaline Phosphatase 477 H Total Creatine Kinase Total Protein 5.8 L Albumin 3.3 L Amylase 1148 H Lipase 3156 H Urine Nitrite Ur Leukocyte Esterase Urine RBC 01/19/22 01/19/22 01/19/22 05:33 05:33 19:37 WBC 20.5 H 27.4 H Immature Gran % (Auto) 0.6 H Neut % (Auto) 93.7 H Lymph % (Auto) 1.8 L Lymph # (Auto) 0.5 L Abs Immat Gran (auto) 0.16 H Absolute Neuts (auto) 25.7 H Carbon Dioxide Anion Gap BUN 17 H Creatinine Random Glucose 225 H Calcium 7.3 L D Total Bilirubin 2.1 H Direct Bilirubin 1.4 H AST 140 H ALT 358 H Alkaline Phosphatase 395 H Total Creatine Kinase 21 L D Total Protein 5.7 L Albumin 3.2 L Amylase 1107 H Lipase 1735 H Urine Nitrite Ur Leukocyte Esterase Urine RBC 01/20/22 01/20/22 05:55 05:55 WBC 23.5 H Immature Gran % (Auto) Neut % (Auto) Lymph % (Auto) Lymph # (Auto) Abs Immat Gran (auto) Absolute Neuts (auto) Carbon Dioxide 17 L Anion Gap 23 H BUN 39 H D Creatinine 1.60 H Random Glucose 273 H Calcium 6.0 L* D Total Bilirubin 1.4 H Direct Bilirubin 0.8 H AST 62 H ALT 203 H Alkaline Phosphatase 288 H D Total Creatine Kinase Total Protein 5.7 L Albumin 3.0 L Amylase Lipase Urine Nitrite Ur Leukocyte Esterase Urine RBC Microbiology: Microbiology 01/15/22 Unknown Urine clean catch - Urine seymour top Urine Culture - Final Diagnostic Findings Chest x-ray: report reviewed and image reviewed Assessment and Plan (1) Post-ERCP acute pancreatitis: Status: Acute (2) Mild persistent asthma: Status: Acute (3) GILDA (obstructive sleep apnea): Status: Acute (4) Respiratory distress: Status: Acute Plan The patient is with acute pancreatitis-years post ERCP. She has baseline diagnosis of chronic obesity, obstructive sleep apnea but not compliant to use CPAP, Also has longstanding bronchial asthma which has been relatively controlled. I suspect that she has hypoventilation syndrome also. Currently she is having respiratory distress with increased oxygen requirement and this is secondary to: Severe obesity, small lung volumes, bibasilar atelectasis, questionable pulmonary aspiration, but no definite pneumonia. Change in mental status may be due to toxic encephalopathy, hypoxemia, and will rule out hypercarbia. PLan : Venous blood gas study is ordered, if PCO is elevated she may be candidate for BiPAP therapy. Continue O2 by nasal cannula to keep O2 sat above 90%. Would change Flovent to Breo 200 1 inhalation daily. Make DuoNeb updrafts scheduled Q 6 hours while awake . Thank you very much for asking me to see this patient. Procedures Date of Service Date of Service: 01/20/22
--- NOTE | 2022-01-20 09:40 | CA_ITS ---
Transthoracic Echocardiogram Amended Patient (Last, First, Middle): Heather Hunt M Gender: Female Date of : 1945 Age: 76 Procedure Date: 01/20/2022 Procedure Type: Transthoracic Echocardiogram Location: [facility] [place] Height: 154.94 cm Weight: 90.72 kg BSA: 1.89 m2 Heart Rate: bpm BP: 134 / 78 mmHg [employer] Reconnaissance Vehicle Driver: Referring MD: Nishant Jimenes MD Maintenance Team Leader: Roderick Worrell MD Symptoms: hypoxia respiratory failure Study Quality: Technically Difficult due to obesity ECG Rhythm: Sinus Conclusions: - 1. Technically very limited study due to body habitus 2. Normal LV systolic function 3. RV size on few views appears to be normal with normal RV systolic function by TAPSE 4. Limited evaluation of cardiac valvular structure with possible mild aortic stenosis 5. Measured RV systolic pressure within normal limits Findings Procedure Information Contrast agent, definity, is being given per protocol without apparent complications. Left Ventricle Normal left ventricular size, thickness, and systolic function. The visually estimated ejection fraction is between 60-65%. Regional wall motion abnormalities can not be excluded due to suboptimal endocardial definition. Diastolic function is indeterminate on the basis of available data. Right Ventricle The right ventricle was not well visualized. There is normal right ventricular systolic function. on some views right ventricular appears to be of normal size Atria The left atrium was not well visualized. Interatrial shunt cannot be excluded. The right atrium was not well visualized. Aortic Valve The aortic valve was not well visualized. There is mild calcification of the aortic valve. There is mild aortic valve stenosis. The mean gradient is 12 mmHg. There is no aortic valve regurgitation. Mitral Valve The mitral valve was not well visualized. There is trace mitral valve regurgitation. There is no mitral valve stenosis. Pulmonic Valve The pulmonic valve was not well visualized. Tricuspid Valve The tricuspid valve was not well visualized. There is trace tricuspid valve regurgitation. Normal right atrial pressure. There is no evidence of pulmonary hypertension. Great Vessels The aorta was not well visualized. The pulmonary artery was not well visualized. Venous The inferior vena cava was not well visualized. The inferior vena cava is normal in size. Pericardium/Pleural The pericardium was not well visualized. Prior Study Comparison No significant change compared to prior study dated: 09/04/2021. Measurements 2D Linear Measurements IVSd: 1.07 0.6-0.9/0.6-1.0 cm LVIDd: 4.05 3.9-5.3/4.2-5.9 cm LVIDd Index: 2.14 2.4-3.2/2.2-3.1 cm/m2 LVIDs: 2.53 2.0-3.6 cm LVPWd: 1.03 0.7-1.1 cm Ao Root: 2.70 2.1-3.5 cm LA Diam: 3.40 2.7-3.8/3.0-4.0 cm LAIDs Index: 1.80 1.5-2.3 cm/m2 LV Mass: 172.83 67-162/88-224 g LV Mass Index: 91.44 43-95/49-115 g/m2 LVOT Diam: 1.90 3.0+(-)1.3 cm 2D Volumes LA Vol: 17.80 Mitral Valve MV Pk E: 0.63 MV PK A: 1.13 MV Decel Time: 174.00 E/A: 0.60 E'Lateral: 10.00 E'Medial: 6.09 E/E' Med: 10.30 E/E' Lat: 6.30 PHT: 51.00 MVA PHT: 4.31 Decel Dewitt: 3.59 Aortic Valve AoV Pk Jonathan: 2.27 AoV Mn Jonathan: 1.61 AoV VTI: 0.39 AoV Pk Grad: 21.00 Aov Mn Grad: 12.00 ZHANG Cont.VTI: 1.12 LVOT LVOT Pk Jonathan: 1.00 LVOT Mn Jonathan: 0.68 LVOT VTI: 0.15 LVOT Pk Grad: 4.00 LVOT Mn Grad: 2.00 LVOT Diam: 1.90 LVOT Area: 2.84 Diastolic Function MV Pk E: 0.63 MV Pk A: 1.13 E/A: 0.60 E'Medial: 6.09 E/E' Med: 10.30 E' Laterial: 10.00 E/E' Lat: 6.30 Tricuspid Valve TR Pk Jonathan: 2.50 TR Pk Grad: 25.00 RA Press: 3.00 RVSP: 28.00 Great Vessels Aorta Ao Root-2D: 2.70 2.0-3.7 cm Pulmonary Valve PV Pk Jonathan: 1.06 Peak PV Grad: 4.00 Updated in Other Vendor System with Status of Final Roderick Worrell MD electronically signed on 01/20/2022 3:58:33 PM with status of Final
--- NOTE | 2022-01-20 09:56 | MHC.SLORD ---
Speech Language Pathology Order Status: Attempted to see patient for Bedside Swallow Assessment this am. Per nursing, patient is currently not able to tolerate presence of ice chips in mouth (triggers vomiting), and not appropriate for swallow eval at this time. Will continue to montor, re-attempt Swallow Assessment when appropriate.
[2022-01-20 10:02] LABS: Venous Blood Gas Refer to POC result
[2022-01-20 10:03] LABS: VBG Base Excess -4.7 mmol/L; VBG HCO3 19 mmol/L (22-26); VBG pCO2 34 mmHg; VBG pH 7.36 (7.32-7.43); VBG pO2 70 mmHg
[2022-01-20 10:17] LABS: Anion Gap 22 (12-20); Blood Urea Nitrogen 44 mg/dL (9-16); Calcium 5.9 mg/dL (8.4-10.2); Carbon Dioxide 19 mmol/L (22-29); Chloride 99 mmol/L (96-108); Estimated Glomerular Filt Rate 26; Glucose Random 305 mg/dL (60-115); Potassium 4.2 mmol/L (3.3-5.1); Sodium 136 mmol/L (135-145)
--- NOTE | 2022-01-20 11:19 | MHC.CLN ---
NUTRITION RECOMMENDATION FOR PPN. TODAY IS DAY 6 OF CL OR NPO. CURRENTLY NPO AND UNABLE TO TOLERATE PO INTAKE. RECOMMEND DAY 1 (01/20/22) D10AA4.25 AT 30 ML PER HOUR. 367 KCALS; 31 G PROTEIN. REPLETE LYTES NEEDED. DAY 2 (01/21/22) D10AA4.25 AT 50 ML PER HOUR. 612 KCALS; 51 G PROTEIN. REPLETE LYTES NEEDED. CHECK TRIGLYCERIDES. DAY 3 (01/22/22) D10AA4.25 AT MAX GOAL RATE 65 ML PER HOUR. ADD LIPIDS, 15 ML OF 20% LIPIDS. PROVIDES 1516 KCALS (26 KCALS/KG CALCULATED METABOLIC WEIGHT) AND 66 G PROTEIN (1.1 G/KG CALCULATED METABOLIC WEIGHT). BMI=37.8; WEIGHT=90.72 KG; CALCULATD METABOLIC WEIGHT=58.4 KG MONITOR LYTES AND DIET ADVANCEMENT.
[2022-01-20 12:30] LABS: Magnesium 1.5 mg/dL (1.6-2.6); Phosphorus 2.2 mg/dL (2.7-4.5); Triglycerides 165 mg/dL
--- NOTE | 2022-01-20 12:47 | PC.NURSE ---
Arrive's via hospital bed from [facility]. 10liters [place], moaning but denies pain at this time. Dry heaving. Increased confusion per daughter sinus tach on monitor 100s.
--- NOTE | 2022-01-20 13:11 | P.CONCC_ITS ---
History of Present Illness Data of Consult Service Date: 01/20/22 Requesting physician: Nishant Jimenes Primary Care Provider: Shania Edmonds MD HPI I was asked by Dr. Jimenes to see Mrs. Gilbert baldwin of purported resp difficulty and ? sepsis. Briefly, the patient is a 76 yo F who [place] [facility] [place] with biliary symptoms.? She has a PMHx of obesity, mild persistent asthma, hypothyroidism, GERD, hiatal hernia, bilateral calcific tendonitis, and urge incontinence.? Abdominal CT showed an unremarkable liver and gallbladder, with no ductal dilatation.? Abdominal ultrasound showed cholelithiasis without cholecystitis.? MRCP showed multiple small gallstones and a small amount of pericholecystic fluid.? No common bile duct stone was seen.? The liver was fatty and slightly enlarged. The patient underwent ERCP on January 17, at which a sphincterotomy was performed, and a 10-12 mm stone was retrieved from the common bile duct. Postprocedure, the patient developed mild pancreatitis, with lipase up to 3156, and amylase 1148 the next day.? Over subsequent days, those numbers have been coming down, as has her total bilirubin and transaminases.? Her renal indices have bumped though, with a high renal ratio.? Her bicarb, calcium, phosphorus, and magnesium levels have dropped.? But her WBC has been going up, she has developed a requirement for supplemental oxygen (prior to the procedure she was on room air), and she?s been nauseous and having dry heaves. ?She?s been afebrile throughout. On my exam today, the patient is fully awake and alert, and seems mostly oriented to me.? She was able to read my name tag and make insightful comments.? She is complaining bitterly of thirst.? I gave her two cups of ice water which she rapidly sucked down with no problem.? She does not look toxic to me, and didn?t cough once in the 15 minutes or so that I was in her room.? RR is about 18, and she?s moaning from time to time.? No significant work of breathing. ?Major complaint is severe thirst, not pain.? Sat was 94% on 7L NC, 91% on 4L NC.? HR 94, SR.? BP 135/77.? Temp 98.5?.? Mucous membranes are strikingly dry, even after 2 cups of water. ?No JVD.? Chest is clear to auscultation, with nor mal expiratory phase.? Heart rate and rhythm are regular, with soft heart tones.? I heard no murmur or gallops.? Abdomen is obese, has maybe slight upper abdominal tenderness, certainly no guarding or peritoneal signs, nothing very remarkable.? She has 1+ central edema. While I was seeing her, patient had dry heaves, and brought up a few drops of coffee-ground stained clear fluid. LABORATORY DATA:? Below.? Notably, White count is down to 23.5 today.? Venous blood gas this morning showed 7.36/34/-4.? BUN/creatinine up to 44/1.8, bicarb up to 19, potassium 4.2, Random glucose 305, calcium 5.9, phosphorus 2.2, magnesium 1.5, albumin 3.0.? Amylase yesterday was down to 1100, lipase yesterday was down to 1700.? Total bili today down to 1.4. Chest x-rays basically clear, but with low lung volumes. IMPRESSION: 1. Underlying obesity. 2. Choledocholithiasis with biliary colic.? S/P successful ERCP removal of obstructing stone. 3. Postprocedural pancreatitis.? That probably accounts for a lot of her pr oblems, including her upper abdominal pain and nausea, and possibly her WBC.? Laboratory data suggests it is getting better. ?No problem with her drinking as much water as she wants, as tolerated, then advance diet as tolerated. 4. DONNIE.? Probably straightforward hypovolemia.? (The hypophosphatemia is an additional clue to the benign nature.) ?If you really wanted to be sure, you could send a urine sodium, but I do not think there is a need to do so.? I would give her a couple of liters of LR. 5. Mild-moderate hypoxemia.? This can be explained by the pancreatitis and body habitus, causing low lung volumes and V/Q mismatch.? But the differential includes PE.? Consider DDimer, Duplex scan and echo as screening tests.? The D- dimer is only helpful if it?s negative; if it?s positive, it?s unhelpful.? If the duplex scan and echo are negative, I would not feel the need to ja the diagnosis of pulmonary embolism further (e.g. with a nuc med perfusion scan).? I?m fairly certain she does not have pneumonia (altho if you?re going to claim that diagnosis, such that you give abx for it, it should be proved it with a noncontrast chest CT).? She has no ventilatory failure.? No need for intensive care. 6. ID: ?I don?t think she?s septic, I don?t think she?s infected.? I see no indication for abx. 7. Hypocalcemia, hypomagnesemia, and hypophosphatemia.? Replete as usual. 8. Debilitation.? She needs to be OOB into a chair and walking because she will become debilitated very quickly. Time (including full chart rev):? 75+ min [facility] Past Medical History Medical History (Updated 01/20/22 @ 17:04 by Nishant Jimenes MD) Acute respiratory failure with hypoxia Colitis Colon cancer screening Depression with anxiety Dysphagia Erosive esophagitis GERD (gastroesophageal reflux disease) Hiatal hernia Hospital discharge follow-up Hypothyroidism Left shoulder pain Mild cognitive impairment Mild persistent asthma with (acute) exacerbation Mild recurrent major depression Morbid obesity Obesity (BMI 30-39.9) GILDA (obstructive sleep apnea) Pure hypercholesterolemia Respiratory distress Toxic encephalopathy Family History Family History Mother Diabetes Hypertension Stroke Father Lung cancer Surgical History Surgical History H/O colonoscopy History of benign ovarian tumor History of esophagogastroduodenoscopy (EGD) Social History Social History Household Members: None Household Members Other:: daughter lives downstairs Housing: House Are you a primary residential care facility manager to a significant other at home: No Do you presently have visiting nurse or other home services: Yes (Pt) Alcohol intake: never Patient Tobacco Use Status: Never used Tobacco e-Cigarette/Vaping Use: Never Used Second Hand Smoke Exposure: Yes Advance Directives Date on File: 04/03/20 service: No Current occupational status: retired Current occupation: right handed Cognitive needs: Yes Hearing needs: No Vision needs: No Meds Allergies Allergy/AdvReac Type Severity Reaction Status Date / Time influenza virus vaccine, Allergy Severe SEVERE FLU Verified 11/27/21 13:27 specific SYMPTOMS [Influenza Virus Vacc,Specific] codeine [CODEINE] Allergy Intermediate NAUSEA & Verified 11/27/21 13:27 VOMITING Sulfa (Sulfonamide Allergy Intermediate Hives Verified 11/27/21 13:27 Antibiotics) amoxicillin [Amoxicillin] Allergy Unknown UNKNOWN Verified 11/27/21 13:27 Penicillins Allergy Unknown UNKNOWN Verified 11/27/21 13:27 Active Medications: Current Medications Albuterol/Ipratropium (Albuterol/Iprat 2.5/0.5mg 3 Ml Ampul.Neb) 3 ml INHALE RQ4H PRN PRN Reason: Shortness of Breath Last Admin: 01/20/22 00:58 Dose: 3 ml Enoxaparin Sodium (Enoxaparin Sodium 40 Mg/0.4 Ml Syringe) 40 mg SUBCUT Q24H [facility] Last Admin: 01/20/22 09:24 Dose: 40 mg Hydromorphone HCl (Hydromorphone Hcl 0.5 Mg/0.5 Ml Syringe) 0.5 mg IVPUSH Q3H PRN; Protocol PRN Reason: Pain, Severe (Pain Scale 7-10) Last Admin: 01/20/22 11:06 Dose: 0.5 mg Ceftriaxone Sodium 1 gm/ (Sodium Chloride) 50 mls @ 100 mls/hr IV Q24H [facility] Last Infusion: 01/20/22 06:37 Dose: Infused Metronidazole (Flagyl) 500 mg in 100 mls @ 100 mls/hr IV Q8H [facility] Last Infusion: 01/20/22 09:40 Dose: Infused Lactated Ringer's (Lr) 1,000 mls @ 150 mls/hr IVCONT .Q6H40M [facility] Last Admin: 01/20/22 07:30 Dose: 150 mls/hr Multivitamins 28 ml/ Trace Metals 2.8 ml/ Amino Acids/Electrolytes/Dextrose 720 mls @ 30 mls/hr IV DAILY@1800 [facility] Stop: 01/21/22 17:59 Levothyroxine Sodium (Levothyroxine Sodium 75 Mcg Tablet) 75 mcg PO DAILY@0600 [facility] Last Admin: 01/20/22 05:49 Dose: 75 mcg Mirabegron (Mirabegron 25 Mg Tab.Er.24h) 25 mg PO DAILY [facility] Last Admin: 01/20/22 07:32 Dose: 25 mg Pt Own (Fluticasone Propionate [Flovent Hfa] 44 Mcg/Actuation Hfa Aeroso 1 puff INHALE RBID [facility] Last Admin: 01/20/22 00:13 Dose: Not Given Omeprazole (Omeprazole 20 Mg Capsule.Dr) 20 mg PO DAILY@0630 [facility] Last Admin: 01/19/22 05:20 Dose: 20 mg Ondansetron HCl (Ondansetron Hcl 4 Mg/2 Ml Vial) 4 mg IVPUSH Q8H PRN PRN Reason: Nausea and Vomiting Last Admin: 01/20/22 07:38 Dose: 4 mg Pantoprazole Sodium (Pantoprazole Sodium 40 Mg/10 Ml Vial) 40 mg IVPUSH BID@0630,1630 [facility] Last Admin: 01/20/22 05:49 Dose: 40 mg Sodium Chloride (0.9 % Sodium Chloride Flush 3 Ml Syringe) 3 ml IVFLUSH QSHIFT [facility] Last Admin: 01/20/22 07:30 Dose: Not Given Home Medications Medication Instructions Recorded Confirmed Last Taken Type fluticasone propionate 44 1 puff inhalation BID 01/15/22 01/15/22 Unknown History mcg/actuation HFA aerosol inhaler (Flovent HFA) levothyroxine 75 mcg tablet 1 tab PO DAILY 01/15/22 01/15/22 Unknown History mirabegron 25 mg tablet,extended 1 tab PO DAILY 01/15/22 01/15/22 Unknown Histo ry release 24 hr (Myrbetriq) omeprazole 20 mg capsule,delayed 1 cap PO DAILY 01/15/22 01/15/22 Unknown History release Physical Exam Vital Signs: Vital Signs: Last Vital Signs Temp 98.5 F 01/20/22 12:52 Pulse 105 H 01/20/22 12:52 Resp 17 01/20/22 12:52 BP 135/77 01/20/22 12:52 Pulse Ox 92 01/20/22 12:52 O2 Del Method 01/20/22 12:52 O2 Flow Rate 7 01/20/22 12:52 BMI result Body Mass Index 37.8 Results Labs CBC & Chem 7: 01/20/22 05:55 01/20/22 09:58 Labs: Short CBC 01/19/22 01/20/22 Range/Units 19:37 05:55 WBC 27.4 H 23.5 H (4.8-10.8) X10*3/uL Hgb 14.3 13.6 (12.0-16.0) g/dl Hct 43.6 42.4 (37.0-47.0) % Plt Count 365 343 (160-400) X10*3/uL BMP 01/20/22 01/20/22 05:55 09:58 Sodium 135 136 Potassium 4.3 4.2 Chloride 99 99 Carbon Dioxide 17 L 19 L BUN 39 H D 44 H Creatinine 1.60 H 1.87 H Calcium 6.0 L* D 5.9 L* Liver Function 01/20/22 Range/Units 05:55 Total Bilirubin 1.4 H (0.0-1.0) mg/dL Direct Bilirubin 0.8 H (0.0-0.5) mg/dL AST 62 H (5-31) U/L ALT 203 H (0-31) U/L Alkaline Phosphatase 288 H D (39-117) U/L Albumin 3.0 L (3.5-5.0) g/dL Microbiology Microbiology Results: Microbiology 01/15/22 Unknown Urine clean catch - Urine seymour top Urine Culture - Final
[2022-01-20] MEDS: Magnesium Sulfate/H2O 2 GM/50 ML PIGGYBACK IV (13:29)
--- NOTE | 2022-01-20 14:04 | P.PNIM_ITS ---
Subjective Subjective Date of Service: 01/20/22 Interval History: Acute hypoxemic respiratory failure possible aspiration component, a KI, post ERCP pancreatitis. toxic metabolic encephalopathy Review of Systems Abdominal pain and nausea and vomiting seems improvin anxious sob seems improving ,oxygen tapered slowly Physical Exam Vital Signs: Vital Signs: Last Vital Signs Temp 98.5 F 01/20/22 12:52 Pulse 105 H 01/20/22 12:52 Resp 17 01/20/22 12:52 BP 135/77 01/20/22 12:52 Pulse Ox 92 01/20/22 12:52 O2 Del Method 01/20/22 12:52 O2 Flow Rate 7 01/20/22 12:52 BMI result Body Mass Index 37.8 Appearance: Alert.? Oriented X3.?more anxious ,sob improving Eyes: Pupils equal, round and reactive to light.? Sclera nonicteric.? ENT: Pharynx normal.? mucous membranes-seems dry. cvs: rrr, [id number]. res: diminshed breath sounds,no rales or wheezing abd: no rebound or guarding ,nt, bs present. ext pulses present , no cyanosis ,trace swellin, no calf pain. neuro: axo3 , nonfocal. Objective Data Active Medications Albuterol/Ipratropium (Albuterol/Iprat 2.5/0.5mg 3 Ml Ampul.Neb) 3 ml INHALE RQ4H PRN PRN Reason: Shortness of Breath Last Admin: 01/19/22 09:07 Dose: 3 ml Documented By: SELAM Albuterol/Ipratropium (Albuterol/Iprat 2.5/0.5mg 3 Ml Ampul.Neb) 3 ml INHALE RQ6H WHILE AWAKE [facility] Enoxaparin Sodium (Enoxaparin Sodium 40 Mg/0.4 Ml Syringe) 40 mg SUBCUT Q24H [facility] Last Admin: 01/20/22 09:24 Dose: 40 mg Documented By: DENISSE Fluticasone/Vilanterol (Fluticasone/Vilanterol 200/25 Blst.W.Dev) 1 puff INHALE RDAILY [facility] Hydromorphone HCl (Hydromorphone Hcl 0.5 Mg/0.5 Ml Syringe) 0.5 mg IVPUSH Q3H PRN; Protocol PRN Reason: Pain, Severe (Pain Scale 7-10) Last Admin: 01/20/22 11:06 Dose: 0.5 mg Documented By: DENISSE Ceftriaxone Sodium 1 gm/ (Sodium Chloride) 50 mls @ 100 mls/hr IV Q24H [facility] Last Infusion: 01/20/22 06:37 Dose: 0 mls/hr Documented By: ROSS Metronidazole (Flagyl) 500 mg in 100 mls @ 100 mls/hr IV Q8H [facility] Last Infusion: 01/20/22 09:40 Dose: 0 mls/hr Documented By: DENISSE Lactated Ringer's (Lr) 1,000 mls @ 150 mls/hr IVCONT .Q6H40M [facility] Last Admin: 01/20/22 07:30 Dose: 150 mls/hr Documented By: DENISSE Multivitamins 28 ml/ Trace Metals 2.8 ml/ Amino Acids/Electrolytes/Dextrose 720 mls @ 30 mls/hr IV DAILY@1800 [facility] Stop: 01/21/22 17:59 Magnesium Sulfate (Magnesium Sulfate/H2o) 2 gm in 50 mls @ 50 mls/hr IV ONCE ONE Stop: 01/20/22 14:05 Last Admin: 01/20/22 13:29 Dose: 50 mls/hr Documented By: JACQUELINE Potassium Phosphate (Kphos) 15 mmol in 250 mls @ 62.5 mls/hr IV ONCE ONE Stop: 01/20/22 17:05 Levothyroxine Sodium (Levothyroxine Sodium 75 Mcg Tablet) 75 mcg PO DAILY@0600 [facility] Last Admin: 01/20/22 05:49 Dose: 75 mcg Documented By: ROSS Mirabegron (Mirabegron 25 Mg Tab.Er.24h) 25 mg PO DAILY [facility] Last Admin: 01/20/22 07:32 Dose: 25 mg Documented By: DENISSE Omeprazole (Omeprazole 20 Mg Capsule.Dr) 20 mg PO DAILY@0630 [facility] Last Admin: 01/19/22 05:20 Dose: 20 mg Documented By: KENNEDY Ondansetron HCl (Ondansetron Hcl 4 Mg/2 Ml Vial) 4 mg IVPUSH Q8H PRN PRN Reason: Nausea and Vomiting Last Admin: 01/20/22 07:38 Dose: 4 mg Documented By: DENISSE Pantoprazole Sodium (Pantoprazole Sodium 40 Mg/10 Ml Vial) 40 mg IVPUSH BID@06 30,1630 [facility] Last Admin: 01/20/22 05:49 Dose: 40 mg Documented By: CASTILLenin Sodium Chloride (0.9 % Sodium Chloride Flush 3 Ml Syringe) 3 ml IVFLUSH QSHIFT [facility] Last Admin: 01/20/22 07:30 Dose: Not Given Documented By: DENISSE Non-Admin Reason: IV Running Labs CBC & Chem 7: 01/20/22 05:55 01/20/22 09:58 Labs: Laboratory Results - last 24 hr 01/19/22 01/20/22 01/20/22 19:37 02:01 05:55 MCV 84.5 86.9 MCH 27.7 27.9 MCHC 32.8 32.1 RDW 14.6 14.9 Plt Count 365 343 MPV 10.9 11.7 Immature Gran % (Auto) 0.6 H Neut % (Auto) 93.7 H Lymph % (Auto) 1.8 L [place] % (Auto) 3.6 Eos % (Auto) 0.0 Baso % (Auto) 0.3 Lymph # (Auto) 0.5 L [place] # (Auto) 1.0 Eos # (Auto) 0.0 Baso # (Auto) 0.1 Abs Immat Gran (auto) 0.16 H Absolute Neuts (auto) 25.7 H Absolute Nucleated RBC 0.000 0.000 Nucleated RBC % (auto) 0.0 0.0 Smear Tech's Comments VERIFIED VBG pH VBG pCO2 VBG pO2 VBG HCO3 VBG O2 Saturation VBG Base Excess Anion Gap Estim Creat Clear Calc Estimated GFR Random Glucose Calcium Phosphorus Magnesium Total Bilirubin Direct Bilirubin AST ALT Alkaline Phosphatase B-Natriuretic Peptide 53 Total Protein Albumin Triglycerides 01/20/22 01/20/22 01/20/22 05:55 09:57 09:58 MCV MCH MCHC RDW Plt Count MPV Immature Gran % (Auto) Neut % (Auto) Lymph % (Auto) [place] % (Auto) Eos % (Auto) Baso % (Auto) Lymph # (Auto) [place] # (Auto) Eos # (Auto) Baso # (Auto) Abs Immat Gran (auto) Absolute Neuts (auto) Absolute Nucleated RBC Nucleated RBC % (auto) Smear Tech's Comments VBG pH 7.36 VBG pCO2 34 VBG pO2 70 VBG HCO3 19 L VBG O2 Saturation 92.0 VBG Base Excess -4.7 Anion Gap 23 H 22 H Estim Creat Clear Calc 31.6 27.0 Estimated GFR 32 26 Random Glucose 273 H 305 H Calcium 6.0 L* D 5.9 L* Phosphorus 2.2 L Magnesium 1.6 1.5 L Total Bilirubin 1.4 H Direct Bilirubin 0.8 H AST 62 H ALT 203 H Alkaline Phosphatase 288 H D B-Natriuretic Peptide Total Protein 5.7 L Albumin 3.0 L Triglycerides 165 Assessment and Plan (1) Respiratory distress: Status: Acute (2) Nausea & vomiting: Status: Acute (3) Post-ERCP acute pancreatitis: Status: Acute (4) Common bile duct (CBD) obstruction: Status: Acute (5) Obesity (BMI 30-39.9): Status: Acute (6) Elevated LFTs: Status: Acute (7) Acute hypoxemic respiratory failure: Status: Acute (8) Atelectasis: Status: Acute (9) Hypoventilation: Status: Acute Plan 76 year old female with history of mild persistent asthma, hypothyroidism, gerd, hiatal hernia, bilateral calcific tendonitis, and urge incontinence to be obsesrved for elevated LFTs and biliary colic. 1- Acute Biliary colic with elevated LFTs, post ERCP pancreatitis. intial workup:US/CT abd/pelvis with cholelithiasis but no obstruction or cholecystitis Bilirubin is slightly up than yesterday, lft's ,lipase trening down has ercp 01/17/22 seems like have post ERCP pancreatitis. nausea /vomiting -seems improving started clear, ppn ,iv fluids ,ppi,zofran/phergan ceftriaxone and Flagyl. 2-Acute UTI wbc trending up, no fever ,abd pain improvin-possible abc trending up sec to pancreatitis/uti,also reactive to persitent nausea/vomiting -US showed positive nitrites, 4+ bacteria, neg leuks, neg blood cultures? . UC -mixed josette -No leukocytosis. Afebrile -IV ceftriaxone hematuria episode ,h/h stable , repeat UA. 3-Hypothyroidism- stable -Continue levothyroxine 4-GERD- stable -EGD 07/01 with strictures with balloon dilitation -Continiue omeprazole 5. acute hypoxemic respiratory failure possible mulifactorial :atelactatsis , morbid obesity, hypoventilation,anxiety , also hx persistent asthma Seen by Pulmonary recommended continue above management. cxr -bibasilar atelacatasis BNP normal, VBG noted pH maintained, echo pending: echo: 1. Technically very limited study due to body habitus? 2. Normal LV systolic function ? 3. RV size on few views appears to be normal with normal RV? ? ? systolic function by TAPSE ? 4. Limited evaluation of cardiac valvular structure with possible mild aortic stenosis ? 5. Measured RV systolic pressure within normal limits? seen and d/w pulm -Respiratory oxygen demand improving with incentive spirometry chest physiotherapy, nebs, making her set up and the breathing. If patient for respiratory failure worsen may need further workup. 6.kobe: dehydration/pancreatitis Encouraged for p.o. intake-liquid free water IV fluids Nephrology evaluation DVT prophylaxis- lovenox ? Need for inpatient:? CBD stone and post ERCP pancreatitis,persitent nausea/vomiting- Requiring IV hydration bowel rest and IV pain medication as well antibiotics. Quality Stroke Does the patient have a stroke diagnosis?: No VTE Prior VTE?: No VTE Risk Level:: Medical - moderate - high VTE Device Contraindication: Treatment Not Indicated VTE Drug Contraindication: N/A - Med Ordered
[2022-01-20] MEDS: Potassium Phosphate/NS 15 MMOL/250 ML PLAST..BAG 62.5 MMOL IV (14:53)
--- NOTE | 2022-01-20 15:28 | P.EN_ITS ---
Event Note Date of Service: 01/20/22 Event Note: Patient seemed to have been borderline hypoxic during the day Was therefore transferred to [facility] Currently denies significant abdominal pain Noted to be periodically vomiting Requiring high O2 levels A little confused Likely having some systemic inflammatory response from her pancreatitis Continue supportive treatment for now
[2022-01-20 15:58] LABS: Creatinine Urine 160.47 mg/dL; Sodium Urine Random < 20.0 mmol/L
--- NOTE | 2022-01-20 18:22 | PC.NURSE ---
Addendum entered by Nga Reyes RN 01/20/22 18:24: critical calcium 5.5 MD aware Original Note: Patients daughter at bedside she seems less confused an not vomiting as much . Patient moaning. No vomiting just intermittent dry heaves. Patient given IV Dilaudid with some effectiveness.
[2022-01-20 18:29] LABS: Anion Gap 21 (12-20); Blood Urea Nitrogen 49 mg/dL (9-16); Calcium 5.5 mg/dL (8.4-10.2); Carbon Dioxide 17 mmol/L (22-29); Chloride 99 mmol/L (96-108); Creatinine Clr Calc Pharmacy 24.9; Estimated Glomerular Filt Rate 24; Glucose Random 269 mg/dL (60-115); Sodium 133 mmol/L (135-145)
[2022-01-20] MEDS: Lactated Ringers 1,000 ML 999 ML IV (18:49)
[2022-01-20 19:27] LABS: Magnesium 1.8 mg/dL (1.6-2.6); Phosphorus 2.3 mg/dL (2.7-4.5)
--- NOTE | 2022-01-20 19:48 | PM.EVENT ---
Event Note Date of Service: 01/20/22 Event Note: called by lab with critical hypocalcemia 5.5, corrects to 6.3 accounting for albumin of 3 SCr up to 2.03 from 1.6 this morning and 0.79 yesterday pt denies perioral numbness. no tetany on exam. EKG with QTc 480 ms assessment: hypoCa due to pancreatitis, prerenal DONNIE plan: Ca gluconate 2g IV, telemetry, repeat lytes at 9pm; give LR 1L bolus and increase rate to 200 mL/hr
[2022-01-20 21:46] LABS: Albumin Level 2.8 g/dL (3.5-5.0); Anion Gap 19 (12-20); Blood Urea Nitrogen 52 mg/dL (9-16); Calcium 6.1 mg/dL (8.4-10.2); Carbon Dioxide 21 mmol/L (22-29); Chloride 99 mmol/L (96-108); Creatinine Clr Calc Pharmacy 24.4; Estimated Glomerular Filt Rate 23; Glucose Random 249 mg/dL (60-115); Magnesium 1.8 mg/dL (1.6-2.6); Phosphorus 2.5 mg/dL (2.7-4.5); Potassium 3.9 mmol/L (3.3-5.1); Sodium 135 mmol/L (135-145)
--- NOTE | 2022-01-20 21:48 | PM.GIPN ---
Subjective Subjective Date of Service: 01/20/22 Interval History: abdo pain s/p ERCP with raised lipase over weekend suggestive of post ERCP pancreatitis patient moaning but denies abdominal pain has been having ongoing nausea and emesis, c/o thirst may have aspirated Critical Care Time (minutes): 0 Physical Exam Vital Signs: Vital Signs: Last Vital Signs Temp 98.1 F 01/20/22 20:00 Pulse 98 01/20/22 20:00 Resp 24 H 01/20/22 20:00 BP 149/73 H 01/20/22 20:00 Pulse Ox 92 01/20/22 20:00 O2 Del Method 01/20/22 20:00 O2 Flow Rate 5 01/20/22 20:00 BMI result Body Mass Index 37.8 EXAM: GENERAL: The patient is moaning, seems slightly confused VITAL SIGNS:see workflow HEENT: Nonicteric sclerae, PERRLA, EOMI. Oropharynx clear. Moist mucous membranes. Conjunctivae appear well perfused. No thyroid mass. CHEST: Chest wall is nontender. HEART: Regular rate and rhythm without murmurs. LUNGS: Clear to auscultation bilaterally. ABDOMEN: Soft, reduced bowel sounds, nontender, no organomegaly.no flank tenderness SKIN: No rash, no excessive bruising, petechiae, or purpura. NEUROLOGIC: Cranial nerves II-XII intact without motor/sensory deficit. psych- awake, seems midly confused Objective Data Labs CBC & Chem 7: 01/20/22 05:55 01/20/22 21:09 Labs: Laboratory Results - last 24 hr 01/20/22 01/20/22 01/20/22 02:01 05:55 05:55 WBC 23.5 H RBC 4.88 Hgb 13.6 Hct 42.4 MCV 86.9 MCH 27.9 MCHC 32.1 RDW 14.9 Plt Count 343 MPV 11.7 Absolute Nucleated RBC 0.000 Nucleated RBC % (auto) 0.0 VBG pH VBG pCO2 VBG pO2 VBG HCO3 VBG O2 Saturation VBG Base Excess Sodium 135 Potassium 4.3 Chloride 99 Carbon Dioxide 17 L Anion Gap 23 H BUN 39 H D Creatinine 1.60 H Estim Creat Clear Calc 31.6 Estimated GFR 32 Random Glucose 273 H Calcium 6.0 L* D Phosphorus Magnesium 1.6 Total Bilirubin 1.4 H Direct Bilirubin 0.8 H AST 62 H ALT 203 H Alkaline Phosphatase 288 H D B-Natriuretic Peptide 53 Total Protein 5.7 L Albumin 3.0 L Triglycerides Ur Random Sodium Urine Creatinine 01/20/22 01/20/22 01/20/22 09:57 09:58 15:00 WBC RBC Hgb Hct MCV MCH MCHC RDW Plt Count MPV Absolute Nucleated RBC Nucleated RBC % (auto) VBG pH 7.36 VBG pCO2 34 VBG pO2 70 VBG HCO3 19 L VBG O2 Saturation 92.0 VBG Base Excess -4.7 Sodium 136 Potassium 4.2 Chloride 99 Carbon Dioxide 19 L Anion Gap 22 H BUN 44 H Creatinine 1.87 H Estim Creat Clear Calc 27.0 Estimated GFR 26 Random Glucose 305 H Calcium 5.9 L* Phosphorus 2.2 L Magnesium 1.5 L Total Bilirubin Direct Bilirubin AST ALT Alkaline Phosphatase B-Natriuretic Peptide Total Protein Albumin Triglycerides 165 Ur Random Sodium < 20.0 Urine Creatinine 160.47 01/20/22 01/20/22 17:20 21:09 WBC RBC Hgb Hct MCV MCH MCHC RDW Plt Count MPV Absolute Nucleated RBC Nucleated RBC % (auto) VBG pH VBG pCO2 VBG pO2 VBG HCO3 VBG O2 Saturation VBG Base Excess Sodium 133 L 135 Potassium 4.0 3.9 Chloride 99 99 Carbon Dioxide 17 L 21 L Anion Gap 21 H 19 BUN 49 H 52 H Creatinine 2.03 H 2.07 H Estim Creat Clear Calc 24.9 24.4 Estimated GFR 24 23 Random Glucose 269 H 249 H Calcium 5.5 L* D 6.1 L D Phosphorus 2.3 L 2.5 L Magnesium 1.8 1.8 Total Bilirubin Direct Bilirubin AST ALT Alkaline Phosphatase B-Natriuretic Peptide Total Protein Albumin 2.8 L Triglycerides Ur Random Sodium Urine Creatinine Microbiology Microbiology Results: Microbiology 01/15/22 Unknown Urine clean catch - Urine seymour top Urine Culture - Final Procedures Date of Service Date of Service: 01/20/22 Progress Note: A&P Assessment and plan (1) Common bile duct (CBD) obstruction: Status: Acute (2) Elevated LFTs: Status: Acute Plan 1/ Choledocholithiasis with abn LFT suggestive of CBD obstruction, s/p ERCP with removal of stone but then with post ercp pancreatitis and nausea/vomiting with DONNIE. She probably has pre renal DONNIE from dehydration, also has low ca, PO4, and Mag which maybe contributing to nausea. Nausea is multifactorial from gallstones, pancreatitis, medication and analgesia 2/ suspected aspiration from above PLAN; 1/ Cont to hydrate, can use saline 2/ check Fena and Feurea, urine eosinophil stain 3/ Monitor urin eoutput consider u/s to r/o renal obstruction 4/ replace lytes, reduce risk of ileus, also try to limit opiate use 5/ PT and incentive spirometry, vest therapy Time Spent With Patient Time: Total time spent is greater than 50% in coordination of care (as documented) at patient's floor/unit and/or counseling patient: Quality Stroke Does the patient have a stroke diagnosis?: No VTE Prior VTE?: No VTE Risk Level:: Medical - moderate - high VTE Device Contraindication: Treatment Not Indicated VTE Drug Contraindication: N/A - Med Ordered
[2022-01-20] MEDS: Lactated Ringers 1,000 ML 200 ML IVCONT (22:54)
[2022-01-21] VITALS (12 sets, daily range): BP systolic 108–144; BP diastolic 57–82; PULSE 86–101; RESP 16–22; TEMP 35.7–37.3; O2SAT 91–94
--- NOTE | 2022-01-21 | ECG_ITS ---
Test Reason : chest pressure Blood Pressure : / mmHG Vent. Rate : 097 BPM Atrial Rate : 097 BPM P-R Int : 104 ms QRS Dur : 088 ms QT Int : 358 ms P-R-T Axes : 050 056 055 degrees QTc Int : 454 ms Sinus rhythm with short GA with occasional Premature ventricular complexes Otherwise normal ECG When compared with ECG of 20-JAN-2022 18:44, Premature ventricular complexes are now Present Referred By: Neri Stewart Electronically Signed By:THELMA CARMEN
[2022-01-21] MEDS: ondansetron HCL 4 MG/2 ML VIAL IVPUSH ×2 (00:44→12:08)
[2022-01-21] MEDS: 0.9 % Sodium Chloride Flush 3 ML SYRINGE IVFLUSH (00:44)
[2022-01-21] MEDS: HYDROmorphone HCl 0.5 MG/0.5 ML SYRINGE IVPUSH ×3 (01:17→09:56)
[2022-01-21] MEDS: Lactated Ringers 1,000 ML 200 ML IVCONT ×2 (04:56→10:01)
[2022-01-21] MEDS: cefTRIAXone sodium 1 GM in 0.9 % Sodium Chloride 50 ML IV (06:11)
[2022-01-21] MEDS: Pantoprazole Sodium 40 MG/10 ML VIAL IVPUSH ×2 (06:11→15:53)
[2022-01-21 06:57] LABS: Creatinine Urine 101.97 mg/dL; Sodium Urine Random < 20.0 mmol/L
[2022-01-21 07:00] LABS: Appearance Urine Cloudy; Color Urine Dark Yellow; Glucose Urine UA 250 mg/dL (Negative); Leukocyte Esterase Urine Trace (Negative); Nitrite Urine Negative (Negative); PH 5.5 (5.0-9.0); UMIC TRIGGER UA YES; Urine Blood Moderate (2+) (Negative); Urine Ketones Trace mg/dL (Negative); Urine Protein 100 (2+) mg/dL (Neg-Trace)
[2022-01-21 07:05] LABS: Bacteria Urine None Seen (None Seen); RBC Urine >20 /HPF (0-2); WBC Urine 0-5 /HPF (0-5)
--- NOTE | 2022-01-21 07:37 | PC.NURSE ---
Patient vomiting green bile and wheezing. Repositioned for comfort. MD aware.
[2022-01-21] MEDS: metroNIDAZOLE/NS 500 MG/100 ML PIGGYBACK 100 MG IV ×2 (07:53→16:20)
[2022-01-21 08:38] LABS: Hematocrit 33.2 % (37.0-47.0); Hemoglobin 10.9 g/dl (12.0-16.0); Mean Corpuscular HGB Conc 32.8 g/dl (31.0-35.0); Mean Corpuscular Hemoglobin 27.8 pg (27.0-33.0); Mean Corpuscular Volume 84.7 fL (80.0-98.0); Mean Platelet Volume 11.3 fL (9.4-12.3); Platelet Count 262 X10*3/uL (160-400); Red Blood Count 3.92 X10*6/uL (4.20-5.50); Red Cell Distribution Width 14.7 % (11.0-16.0); White Blood Count 15.6 X10*3/uL (4.8-10.8)
--- NOTE | 2022-01-21 08:52 | P.PNGS_ITS ---
Subjective Subjective Date of Service: 01/21/22 Interval history: denies abdl pain still with N/V more alert this AM Physical Exam Vital Signs: Vital Signs: Last Vital Signs Temp 96.2 F L 01/21/22 07:30 Pulse 97 01/21/22 07:30 Resp 20 01/21/22 07:30 BP 108/57 L 01/21/22 07:30 Pulse Ox 94 01/21/22 07:30 O2 Del Method 01/21/22 07:30 O2 Flow Rate 5 01/21/22 07:30 BMI result Body Mass Index 37.8 Const: General: no acute distress Resp: Effort & Inspection: normal respiratory effort Cardio: Rate: regular rate GI: Palpation (GI): Soft to palpation, not firm, nontender and no guarding Objective Data Active Medications Albuterol/Ipratropium (Albuterol/Iprat 2.5/0.5mg 3 Ml Ampul.Neb) 3 ml INHALE RQ4H PRN PRN Reason: Shortness of Breath Last Admin: 01/19/22 09:07 Dose: 3 ml Documented By: SELAM Albuterol/Ipratropium (Albuterol/Iprat 2.5/0.5mg 3 Ml Ampul.Neb) 3 ml INHALE RQ6H WHILE AWAKE [facility] Last Admin: 01/21/22 07:52 Dose: Not Given Documented By: MK Non-Admin Reason: Patient Refused Enoxaparin Sodium (Enoxaparin Sodium 40 Mg/0.4 Ml Syringe) 40 mg SUBCUT Q24H [facility] Last Admin: 01/20/22 09:24 Dose: 40 mg Documented By: DENISSE Fluticasone/Vilanterol (Fluticasone/Vilanterol 200/25 Blst.W.Dev) 1 puff INHALE RDAILY [facility] Last Admin: 01/21/22 07:52 Dose: Not Given Documented By: MK Non-Admin Reason: Patient Refused Hydromorphone HCl (Hydromorphone Hcl 0.5 Mg/0.5 Ml Syringe) 0.5 mg IVPUSH Q3H PRN; Protocol PRN Reason: Pain, Severe (Pain Scale 7-10) Last Admin: 01/21/22 04:51 Dose: 0.5 mg Documented By: MISA Ceftriaxone Sodium 1 gm/ (Sodium Chloride) 50 mls @ 100 mls/hr IV Q24H [facility] Last Infusion: 01/21/22 07:14 Dose: 0 mls/hr Documented By: MISA Metronidazole (Flagyl) 500 mg in 100 mls @ 100 mls/hr IV Q8H [facility] Last Admin: 01/21/22 07:53 Dose: 100 mls/hr Documented By: JACQUELINE Lactated Ringer's (Lr) 1,000 mls @ 200 mls/hr IVCONT .Q5H [facility] Last Admin: 01/21/22 04:56 Dose: 200 mls/hr Documented By: MISA Multivitamins 28 ml/ Trace Metals 2.8 ml/ Amino Acids/Electrolytes/Dextrose 720 mls @ 30 mls/hr IV DAILY@1800 [facility] Stop: 01/21/22 17:59 Last Admin: 01/20/22 22:57 Dose: 30 mls/hr Documented By: MISA Comments: Hung late due to loss of second IV Levothyroxine Sodium (Levothyroxine Sodium 75 Mcg Tablet) 75 mcg PO DAILY@0600 [facility] Last Admin: 01/21/22 06:36 Dose: Not Given Documented By: MISA Non-Admin Reason: N/V Mirabegron (Mirabegron 25 Mg Tab.Er.24h) 25 mg PO DAILY [facility] Last Admin: 01/21/22 07:59 Dose: Not Given Documented By: JACQUELINE Non-Admin Reason: NPO Omeprazole (Omeprazole 20 Mg Capsule.Dr) 20 mg PO DAILY@0630 [facility] Last Admin: 01/19/22 05:20 Dose: 20 mg Documented By: KENNEDY Ondansetron HCl (Ondansetron Hcl 4 Mg/2 Ml Vial) 4 mg IVPUSH Q8H PRN PRN Reason: Nausea and Vomiting Last Admin: 01/21/22 00:44 Dose: 4 mg Documented By: MISA Pantoprazole Sodium (Pantoprazole Sodium 40 Mg/10 Ml Vial) 40 mg IVPUSH BID@0630,1630 [facility] Last Admin: 01/21/22 06:11 Dose: 40 mg Documented By: MISA Sodium Chloride (0.9 % Sodium Chloride Flush 3 Ml Syringe) 3 ml IVFLUSH QSHIFT UYEN Last Admin: 01/21/22 07:59 Dose: Not Given Documented By: JACQUELINE Non-Admin Reason: IV Running Labs CBC & Chem 7: 01/20/22 05:55 01/20/22 21:09 Labs: Laboratory Results - last 24 hr 01/20/22 01/20/22 01/20/22 05:55 09:57 09:58 VBG pH 7.36 VBG pCO2 34 VBG pO2 70 VBG HCO3 19 L VBG O2 Saturation 92.0 VBG Base Excess -4.7 Anion Gap 22 H Estim Creat Clear Calc 27.0 Estimated GFR 26 Random Glucose 305 H Calcium 5.9 L* Phosphorus 2.2 L Magnesium 1.6 1.5 L Albumin Triglycerides 165 Urine Color Urine Appearance Urine pH Ur Specific [place] Urine Protein Urine Glucose (UA) Urine Ketones Urine Blood Urine Nitrite Ur Leukocyte Esterase Urine RBC Urine WBC Ur Squamous Epith Cells Urine Bacteria Hyaline Casts Ur Random Sodium Urine Creatinine 01/20/22 01/20/22 01/20/22 15:00 17:20 21:09 VBG pH VBG pCO2 VBG pO2 VBG HCO3 VBG O2 Saturation VBG Base Excess Anion Gap 21 H 19 Estim Creat Clear Calc 24.9 24.4 Estimated GFR 24 23 Random Glucose 269 H 249 H Calcium 5.5 L* D 6.1 L D Phosphorus 2.3 L 2.5 L Magnesium 1.8 1.8 Albumin 2.8 L Triglycerides Urine Color Urine Appearance Urine pH Ur Specific [place] Urine Protein Urine Glucose (UA) Urine Ketones Urine Blood Urine Nitrite Ur Leukocyte Esterase Urine RBC Urine WBC Ur Squamous Epith Cells Urine Bacteria Hyaline Casts Ur Random Sodium < 20.0 Urine Creatinine 160.47 01/21/22 01/21/22 06:20 06:20 VBG pH VBG pCO2 VBG pO2 VBG HCO3 VBG O2 Saturation VBG Base Excess Anion Gap Estim Creat Clear Calc Estimated GFR Random Glucose Calcium Phosphorus Magnesium Albumin Triglycerides Urine Color Dark Yellow Urine Appearance Cloudy Urine pH 5.5 Ur Specific [place] 1.020 Urine Protein 100 (2+) H Urine Glucose (UA) 250 H Urine Ketones Trace Urine Blood Moderate (2+) H Urine Nitrite Negative Ur Leukocyte Esterase Trace H Urine RBC >20 H Urine WBC 0-5 Ur Squamous Epith Cells 6-10 Urine Bacteria None Seen Hyaline Casts 3-5 Ur Random Sodium < 20.0 Urine Creatinine 101.97 Procedures Date of Service Date of Service: 01/21/22 Progress Note: A&P Assessment and plan (1) Post-ERCP acute pancreatitis: Status: Acute Assessment and Plan: still with vomitting lipase has been trending down LFTs dwn as well exam benign - she denies abdl pain vomitting may be from ileus from pancreatitis, but agree with CT scan will continue to follow family updated Time Spent With Patient Time: Total time spent is greater than 50% in coordination of care (as documented) at patient's floor/unit and/or counseling patient: Quality Stroke Does the patient have a stroke diagnosis?: No VTE Prior VTE?: No VTE Risk Level:: Medical - moderate - high VTE Device Contraindication: Treatment Not Indicated VTE Drug Contraindication: N/A - Med Ordered
[2022-01-21 09:03] LABS: Anion Gap 19 (12-20); Blood Urea Nitrogen 49 mg/dL (9-16); Calcium 5.8 mg/dL (8.4-10.2); Carbon Dioxide 18 mmol/L (22-29); Chloride 100 mmol/L (96-108); Creatinine Clr Calc Pharmacy 28.9; Estimated Glomerular Filt Rate 28; Glucose Random 296 mg/dL (60-115); Lipase 134 U/L (8-78); Magnesium 1.7 mg/dL (1.6-2.6); Potassium 3.6 mmol/L (3.3-5.1); Sodium 133 mmol/L (135-145); Triglycerides 169 mg/dL
--- NOTE | 2022-01-21 09:35 | CONS_ITS ---
DATE OF SERVICE: 01/20/2022 I was asked to see patient to assist in evaluation and management of patient's acute kidney injury as reflected by a creatinine going from 0.8 on the 19 of January now up to 1.87 today along with oliguria in the setting of acute pancreatitis status post ERCP on the 17 of January. The patient is getting a significant amount of IV fluids and very poor urine output. She is feeling increasingly unwell with generalized malaise, very thirsty and intermittently confused. Information was obtained from electronic medical record. HISTORY OF PRESENT ILLNESS: In summary, the patient is a 76-year-old with a history of asthma, hypothyroidism, GERD, hiatal hernia, urge incontinence, presented to the emergency room on the complaining of back pain along with right upper quadrant pain. Hospital course was notable for acute biliary obstruction, underwent ERCP, was complicated by pancreatitis. Overall, she is doing poorly with acute kidney injury and poor urine output and is now being evaluated by the ICU team. She has been placed on broad-spectrum antibiotics and getting IV fluids. PAST MEDICAL HISTORY: As noted above includes morbid obesity, asthma. No history of kidney problems. SOCIAL HISTORY: She is a nonsmoker, nondrinker. No illicit drug use. REVIEW OF SYSTEMS: Limited as patient is a poor historian. PHYSICAL EXAMINATION: GENERAL: As mentioned, she seems uncomfortable, intermittently confused, unable to provide much of any information. VITAL SIGNS: Blood pressure 130/70 with a heart rate in the 90s. She is afebrile. Her I's and O's from the computer show only 150 cc of urine output and approximately 5 L of fluid infusion. HEENT: Head is atraumatic. Mucous membranes are dry. LUNGS: Decreased breath sounds at bases. CARDIAC: Regular rate and rhythm. ABDOMEN: Tender. EXTREMITIES: Shows 1+ edema. LABORATORY DATA: Labs from today show sodium 136, potassium 4.2, chloride 99, bicarb 19, BUN 44, creatinine 1.87, calcium 5.9, phosphorus 2.2, and mag 1.5. Creatinine from the was 0.79. Calcium has been running 8, 8.6, and has steadily decreased since yesterday. Her amylase yesterday was 1107, today's is pending. Lipase was 1735 yesterday and 3156 the day before. Urinalysis showed trace protein and some few white cells and red cells. She had an ultrasound of the right upper quadrant for her gallstone evaluation and the right kidney looked fine with no hydro. IMPRESSIONS: A 76-YEAR-OLD ASTHMATIC PATIENT, WHO PRESENTS WITH BILIARY COLIC, STATUS POST ENDOSCOPIC RETROGRADE CHOLANGIOPANCREATOGRAPHY, COMPLICATED BY ACUTE PANCREATITIS AND NOW OLIGURIC ACUTE KIDNEY INJURY. 1. Acute kidney injury. This is most consistent with third spacing of fluid due to her acute pancreatitis with poor renal perfusion. Other concerns would be an inflammatory state causing tubular injury and toxicity causing acute tubular necrosis. Obstruction seems unlikely given the ultrasound without hydronephrosis, but nonetheless, we will place a Thompson given her history of urinary incontinence. 2. Acute pancreatitis. 3. Hypocalcemia. Her albumin was 3.0, but still the corrected calcium is too low. 4. Non-anion gap depressed serum bicarb. SUGGESTIONS: At this time include obtain a spot urine studies to calculate fractional excretion of sodium. We will give her some IV albumin to try and increase her intravascular space. She is at high risk of needing dialysis support in the next 12 to 36 hours given her oliguric state. She is going to be evaluated by the ICU as possible transfer because of overall worsening course. I would agree with Thompson catheter to better handle urine output. We will follow patient closely with the team as she gets her calcium supplementation intravenously. Follow urine output and renal function closely with the team. MD JEFFREY Milian/WERO / [phone]
[2022-01-21] MEDS: Enoxaparin Sodium 40 MG/0.4 ML SYRINGE SUBCUT (09:56)
--- NOTE | 2022-01-21 10:00 | MHC.SLORD ---
Speech Language Pathology Order Status: Re-attempted Bedside Swallow this a.m., Patient continues to have persistent vomiting, including vomiting if given any more that trace amount of liquid on swab. Discussed appropriateness of Bedside Swallow with Dr. Stewart. Pt now on clear liquid diet. Will hold BSE until appropriate, or if medical need for BSE persists.
--- NOTE | 2022-01-21 10:32 | MHC.CLN ---
F/U DISCUSSED WITH PHARMACY DAY 2 OF PPN RECOMMEND INCREASING TO D10AA4.25 AT 50 ML PER HOUR TO PROVIDE 612 KCALS, 51 G PROTEIN REPLETE LYTES NEEDED TRIGS NOTED 169 TODAY
[2022-01-21 10:49] LABS: EOS Counted 0 CELLS; EOS QC POS YES; EOS Stain Quality OK YES; WBC, Counted 2 CELLS
[2022-01-21] MEDS: Albuterol/Iprat 2.5/0.5MG 3 ML AMPUL.NEB INHALE ×3 (11:17→20:17)
[2022-01-21] MEDS: Calcium Gluconate/NaCl,Iso-Osm 2 GM/100 ML PLAST..BAG IV (11:50)
[2022-01-21] MEDS: Potassium Phosphate/NS 15 MMOL/250 ML PLAST..BAG 62.5 MMOL IV (12:10)
--- NOTE | 2022-01-21 12:40 | P.PNIM_ITS ---
Subjective Subjective Date of Service: 01/21/22 Interval History: seen in f/u for post ERCP pancreatis, DONNIE, hypocalcemia, suspected aspiration pneumonia and overall not doing well. Interval history: has intermittent episode of bilious emesis, calcium level remain, has peristent abd discofort, maintaining O2 at present level was evaluated by ICU yesterday with no indication for ICU admission. Review of Systems n/v abd discomfort no fever, Physical Exam Vital Signs: Vital Signs: Last Vital Signs Temp 96.6 F L 01/21/22 11:17 Pulse 90 01/21/22 11:20 Resp 20 01/21/22 11:20 BP 124/58 L 01/21/22 11:17 Pulse Ox 93 01/21/22 11:17 O2 Del Method 01/21/22 11:17 O2 Flow Rate 5 01/21/22 11:17 BMI result Body Mass Index 37.8 Const: Other: General: AO X 3, no acute distress Resp: rhonchi, diminish breath sounds CVS: S1,S2,RRR GI: dimimihsed, BS, NT, no distention Skin: No rash Neuro: motor grossly intact Psych:depressed affect Objective Data Active Medications Albuterol/Ipratropium (Albuterol/Iprat 2.5/0.5mg 3 Ml Ampul.Neb) 3 ml INHALE RQ4H PRN PRN Reason: Shortness of Breath Last Admin: 01/21/22 11:17 Dose: 3 ml Documented By: MK Albuterol/Ipratropium (Albuterol/Iprat 2.5/0.5mg 3 Ml Ampul.Neb) 3 ml INHALE RQ6H WHILE AWAKE [facility] Last Admin: 01/21/22 07:52 Dose: Not Given Documented By: MK Non-Admin Reason: Patient Refused Enoxaparin Sodium (Enoxaparin Sodium 40 Mg/0.4 Ml Syringe) 40 mg SUBCUT Q24H [facility] Last Admin: 01/21/22 09:56 Dose: 40 mg Documented By: JACQUELINE Fluticasone/Vilanterol (Fluticasone/Vilanterol 200/25 Blst.W.Dev) 1 puff INHALE RDAILY [facility] Last Admin: 01/21/22 07:52 Dose: Not Given Documented By: MK Non-Admin Reason: Patient Refused Hydromorphone HCl (Hydromorphone Hcl 0.5 Mg/0.5 Ml Syringe) 0.75 mg IVPUSH Q4H PRN; Protocol PRN Reason: Pain, Severe (Pain Scale 7-10) Metronidazole (Flagyl) 500 mg in 100 mls @ 100 mls/hr IV Q8H [facility] Last Infusion: 01/21/22 09:26 Dose: 0 mls/hr Documented By: JACQUELINE Lactated Ringer's (Lr) 1,000 mls @ 200 mls/hr IVCONT .Q5H [facility] Last Admin: 01/21/22 10:01 Dose: 200 mls/hr Documented By: JACQUELINE Multivitamins 28 ml/ Trace Metals 2.8 ml/ Amino Acids/Electrolytes/Dextrose 720 mls @ 30 mls/hr IV DAILY@1800 [facility] Stop: 01/21/22 17:59 Last Admin: 01/20/22 22:57 Dose: 30 mls/hr Documented By: MISA Comments: Hung late due to loss of second IV Multivitamins 17 ml/ Trace Metals 1.7 ml/ Amino Acids/Electrolytes/Dextrose 1,200 mls @ 50 mls/hr IV DAILY@1800 [facility] Stop: 01/22/22 17:59 Calcium Gluconate (Calcium Gluconate) 2 gm in 100 mls @ 50 mls/hr IV ONCE ONE Stop: 01/21/22 12:59 Last Admin: 01/21/22 11:50 Dose: 50 mls/hr Documented By: JACQUELINE Potassium Phosphate (Kphos) 15 mmol in 250 mls @ 62.5 mls/hr IV ONCE ONE Stop: 01/21/22 14:59 Last Admin: 01/21/22 12:10 Dose: 62.5 mls/hr Documented By: JACQUELINE Piperacillin Sod/Tazobactam (Sod 4.5 gm/ Sodium Chloride) 100 mls @ 200 mls/hr IV Q6H [facility] Stop: 01/31/22 06:44 Piperacillin Sod/Tazobactam (Sod 3.375 gm/ Sodium Chloride) 50 mls @ 100 mls/hr IV Q6H [facility] Levothyroxine Sodium (Levothyroxine Sodium 75 Mcg Tablet) 75 mcg PO DAILY@0600 [facility] Last Admin: 01/21/22 06:36 Dose: Not Given Documented By: MISA Non-Admin Reason: N/V Mirabegron (Mirabegron 25 Mg Tab.Er.24h) 25 mg PO DAILY [facility] Last Admin: 01/21/22 07:59 Dose: Not Given Documented By: JACQUELINE Non-Admin Reason: NPO Omeprazole (Omeprazole 20 Mg Capsule.Dr) 20 mg PO DAILY@0630 [facility] Last Admin: 01/19/22 05:20 Dose: 20 mg Documented By: KENNEDY Ondansetron HCl (Ondansetron Hcl 4 Mg/2 Ml Vial) 4 mg IVPUSH Q8H PRN PRN Reason: Nausea and Vomiting Last Admin: 01/21/22 12:08 Dose: 4 mg Documented By: JACQUELINE Pantoprazole Sodium (Pantoprazole Sodium 40 Mg/10 Ml Vial) 40 mg IVPUSH BID@0630,1630 [facility] Last Admin: 01/21/22 06:11 Dose: 40 mg Documented By: MISA Sodium Chloride (0.9 % Sodium Chloride Flush 3 Ml Syringe) 3 ml IVFLUSH QSHIFT [facility] Last Admin: 01/21/22 07:59 Dose: Not Given Documented By: JACQUELINE Non-Admin Reason: IV Running Labs CBC & Chem 7: 01/21/22 08:24 01/21/22 08:24 Labs: Laboratory Results - last 24 hr 01/20/22 01/20/22 01/20/22 15:00 17:20 21:09 MCV MCH MCHC RDW Plt Count MPV Absolute Nucleated RBC Nucleated RBC % (auto) Anion Gap 21 H 19 Estim Creat Clear Calc 24.9 24.4 Estimated GFR 24 23 Random Glucose 269 H 249 H Calcium 5.5 L* D 6.1 L D Phosphorus 2.3 L 2.5 L Magnesium 1.8 1.8 Albumin 2.8 L Triglycerides Lipase Urine Color Urine Appearance Urine pH Ur Specific [place] Urine Protein Urine Glucose (UA) Urine Ketones Urine Blood Urine Nitrite Ur Leukocyte Esterase Urine RBC Urine WBC Ur Squamous Epith Cells Urine Bacteria Hyaline Casts Urine Eosinophils % Ur Random Sodium < 20.0 Urine Creatinine 160.47 01/21/22 01/21/22 01/21/22 06:20 06:20 06:20 MCV MCH MCHC RDW Plt Count MPV Absolute Nucleated RBC Nucleated RBC % (auto) Anion Gap Estim Creat Clear Calc Estimated GFR Random Glucose Calcium Phosphorus Magnesium Albumin Triglycerides Lipase Urine Color Dark Yellow Urine Appearance Cloudy Urine pH 5.5 Ur Specific [place] 1.020 Urine Protein 100 (2+) H Urine Glucose (UA) 250 H Urine Ketones Trace Urine Blood Moderate (2+) H Urine Nitrite Negative Ur Leukocyte Esterase Trace H Urine RBC >20 H Urine WBC 0-5 Ur Squamous Epith Cells 6-10 Urine Bacteria None Seen Hyaline Casts 3-5 Urine Eosinophils % 0.0 Ur Random Sodium < 20.0 Urine Creatinine 101.97 01/21/22 01/21/22 08:24 08:24 MCV 84.7 MCH 27.8 MCHC 32.8 RDW 14.7 Plt Count 262 MPV 11.3 Absolute Nucleated RBC 0.000 Nucleated RBC % (auto) 0.0 Anion Gap 19 Estim Creat Clear Calc 28.9 Estimated GFR 28 Random Glucose 296 H Calcium 5.8 L* Phosphorus 2.0 L Magnesium 1.7 Albumin Triglycerides 169 Lipase 134 H Urine Color Urine Appearance Urine pH Ur Specific [place] Urine Protein Urine Glucose (UA) Urine Ketones Urine Blood Urine Nitrite Ur Leukocyte Esterase Urine RBC Urine WBC Ur Squamous Epith Cells Urine Bacteria Hyaline Casts Urine Eosinophils % Ur Random Sodium Urine Creatinine Assessment and Plan (1) Respiratory distress: Status: Acute (2) Nausea & vomiting: Status: Acute (3) Post-ERCP acute pancreatitis: Status: Acute (4) Common bile duct (CBD) obstruction: Status: Acute (5) Obesity (BMI 30-39.9): Status: Acute (6) Elevated LFTs: Status: Acute (7) Acute hypoxemic respiratory failure: Status: Acute (8) Atelectasis: Status: Acute (9) Hypoventilation: Status: Acute Plan 76 year old female with history of mild persistent asthma, hypothyroidism, gerd, hiatal hernia, bilateral calcific tendonitis, and urge incontinence admitted for choledocholithiais and now with post ECRCP pancreatitis, DONNIE and aspiration pneumonia. 1- Cholechodocholithiasis, s/p ERCP on 01/17 complicated by post op pancreatitis. -ultimately will need CCY once fully recovered from pancreatitis 2. Acute post ECRCP pancreaitis--most recent CT today reviewed with Dr. Quinn and not believed to be hemorragic pancraitids -Lipase has trended naun from 1356 to no 134 -continue NPO for now -continue TPO 3. Hypocalcemia d/t saponificatiion from pancreatitis, calcium is being replaced and shows no symptoms of hypocalcemia at this, will add additional calcium and laurel to TPN ultimately could have rebound hypercalcemia, so closely monitor, nephrology helping as well 4. Aspiration pneumonia--change Ceftriaxone to Cefepime, there is conflicting report about pen allergy status (pt states no, family says yes and doens't want zosyn) 5. acute hypoxemic respiratory failure possible mulifactorial :atelactatsis , morbid obesity, hypoventilation,anxiety , also hx persistent asthma and pneumonia as above -has been follow by pulmonology, seen by ICU yesterday and no indication for ICU care, incentive spirometry, echo finding reviewed, no evidence of heart failure 6-Acute UTI--negative culture, should be adequately covered with above Abx 3-Hypothyroidism- stable -Continue levothyroxine 4-GERD- stable -EGD 07/01 with strictures with balloon dilitation 6. DONNIE --likely from shift in fluid, from pancreatitis, pre renal state--overall improving, continue IVF and continue monitoring renal functio DVT prophylaxis- lovenox ? Need for inpatient:?Patient is nearly cricitically ill with post ERCP pancreatitis, NPO, hypocalcemia, PNA on IV Abx Plan of care discussed with son and other relative at bed side, request picc line due to poor iv access Quality Stroke Does the patient have a stroke diagnosis?: No VTE Prior VTE?: No VTE Risk Level:: Medical - moderate - high VTE Device Contraindication: Treatment Not Indicated VTE Drug Contraindication: N/A - Med Ordered
[2022-01-21] MEDS: HYDROmorphone HCl 0.5 MG/0.5 ML SYRINGE 0.75 MG IVPUSH ×2 (12:43→19:24)
--- NOTE | 2022-01-21 14:19 | PC.NURSE ---
NG tube placed. Draining green liquid bile, about 600ccs thus far on very low suction. Patient feels much relief. Linens changed and patient repositioned. Thompson draining dark yellow UA. abdomen large although soft and non-tender
[2022-01-21] MEDS: cefEPime HCl 2 GM in 0.9 % Sodium Chloride 50 ML IV (15:52)
--- NOTE | 2022-01-21 16:01 | PC.NURSE ---
Patient wheezing, resp called and duoneb treatment given. LR on hold. notified.
--- NOTE | 2022-01-21 18:54 | PM.EVENT ---
Event Note Date of Service: 01/21/22 Event Note: seen on evening rounds NGT placed earlier after CT suggested gastic ileus pt has been more comfortable since NGT placed abd soft keep NGT until ileus resolved supportive care for pancreatitis
[2022-01-22] VITALS (10 sets, daily range): BP systolic 116–145; BP diastolic 64–81; PULSE 90–104; RESP 18–24; TEMP 36.3–36.6; O2SAT 92–96
[2022-01-22] MEDS: HYDROmorphone HCl 0.5 MG/0.5 ML SYRINGE 0.75 MG IVPUSH ×6 (01:07→22:37)
[2022-01-22] MEDS: metroNIDAZOLE/NS 500 MG/100 ML PIGGYBACK 100 MG IV ×3 (01:10→17:15)
[2022-01-22] MEDS: Lactated Ringers 1,000 ML 75 ML IVCONT ×2 (03:00→17:13)
[2022-01-22] MEDS: Pantoprazole Sodium 40 MG/10 ML VIAL IVPUSH (05:23)
[2022-01-22] MEDS: Albuterol/Iprat 2.5/0.5MG 3 ML AMPUL.NEB INHALE ×3 (07:40→20:46)
--- NOTE | 2022-01-22 08:10 | P.PNGS_ITS ---
Subjective Subjective Date of Service: 01/23/22 Interval history: pulled out NGT last night tube reinserted pt apparently taking clear liquids - NGT output will be difficult to quantify Physical Exam Vital Signs: Vital Signs: Last Vital Signs Temp 98 F 01/22/22 07:26 Pulse 104 H 01/22/22 07:41 Resp 22 H 01/22/22 07:41 BP 132/66 01/22/22 07:26 Pulse Ox 95 01/22/22 07:26 O2 Del Method 01/22/22 07:26 O2 Flow Rate 5 01/22/22 07:26 BMI result Body Mass Index 37.8 Const: General: no acute distress Resp: Effort & Inspection: normal respiratory effort Cardio: Rhythm: regular rhythm GI: Palpation (GI): Soft to palpation Objective Data Active Medications Albuterol/Ipratropium (Albuterol/Iprat 2.5/0.5mg 3 Ml Ampul.Neb) 3 ml INHALE RQ4H PRN PRN Reason: Shortness of Breath Last Admin: 01/21/22 11:17 Dose: 3 ml Documented By: MK Albuterol/Ipratropium (Albuterol/Iprat 2.5/0.5mg 3 Ml Ampul.Neb) 3 ml INHALE RQ6H WHILE AWAKE [facility] Last Admin: 01/22/22 07:40 Dose: 3 ml Documented By: MK Albuterol/Ipratropium (Albuterol/Iprat 2.5/0.5mg 3 Ml Ampul.Neb) 3 ml INHALE RQ4H PRN PRN Reason: Shortness of Breath Last Admin: 01/21/22 15:53 Dose: 3 ml Documented By: MK Enoxaparin Sodium (Enoxaparin Sodium 30 Mg/0.3 Ml Syringe) 30 mg SUBCUT Q24H [facility] Fluticasone/Vilanterol (Fluticasone/Vilanterol 200/25 Blst.W.Dev) 1 puff INHALE RDAILY [facility] Last Admin: 01/22/22 07:45 Dose: Not Given Documented By: MK Non-Admin Reason: Med Not Available Hydromorphone HCl (Hydromorphone Hcl 0.5 Mg/0.5 Ml Syringe) 0.75 mg IVPUSH Q4H PRN; Protocol PRN Reason: Pain, Severe (Pain Scale 7-10) Last Admin: 01/22/22 05:18 Dose: 0.75 mg Documented By: ANDREA Metronidazole (Flagyl) 500 mg in 100 mls @ 100 mls/hr IV Q8H [facility] Last Infusion: 01/22/22 02:16 Dose: 0 mls/hr Documented By: ANDREA Lactated Ringer's (Lr) 1,000 mls @ 75 mls/hr IVCONT .[id number] [facility] Last Admin: 01/22/22 03:00 Dose: 75 mls/hr Documented By: ANDREA Multivitamins 17 ml/ Trace Metals 1.7 ml/ Amino Acids/Electrolytes/Dextrose 1,200 mls @ 50 mls/hr IV DAILY@1800 [facility] Cefepime HCl 2 gm/ Sodium (Chloride) 50 mls @ 100 mls/hr IV Q24H [facility] Last Infusion: 01/21/22 16:25 Dose: 0 mls/hr Documented By: JACQUELINE Levothyroxine Sodium (Levothyroxine Sodium 75 Mcg Tablet) 75 mcg PO DAILY@0600 [facility] Last Admin: 01/22/22 05:22 Dose: Not Given Documented By: ANDREA Non-Admin Reason: NPO Mirabegron (Mirabegron 25 Mg Tab.Er.24h) 25 mg PO DAILY [facility] Last Admin: 01/21/22 07:59 Dose: Not Given Documented By: JACQUELINE Non-Admin Reason: NPO Omeprazole (Omeprazole 20 Mg Capsule.Dr) 20 mg PO DAILY@0630 [facility] Last Admin: 01/19/22 05:20 Dose: 20 mg Documented By: KENNEDY Ondansetron HCl (Ondansetron Hcl 4 Mg/2 Ml Vial) 4 mg IVPUSH Q8H PRN PRN Reason: Nausea and Vomiting Last Admin: 01/21/22 12:08 Dose: 4 mg Documented By: JACQUELINE Pantoprazole Sodium (Pantoprazole Sodium 40 Mg/10 Ml Vial) 40 mg IVPUSH BID@0630,1630 [facility] Last Admin: 01/22/22 05:23 Dose: 40 mg Documented By: ANDREA Sodium Chloride (0.9 % Sodium Chloride Flush 3 Ml Syringe) 3 ml IVFLUSH QSHIFT [facility] Last Admin: 01/22/22 00:44 Dose: Not Given Documented By: ANDREA Non-Admin Reason: IV Running Labs CBC & Chem 7: 01/22/22 09:02 01/22/22 09:02 Labs: Laboratory Results - last 24 hr 01/21/22 01/21/22 01/21/22 06:20 08:24 08:24 MCV 84.7 MCH 27.8 MCHC 32.8 RDW 14.7 Plt Count 262 MPV 11.3 Absolute Nucleated RBC 0.000 Nucleated RBC % (auto) 0.0 Anion Gap 19 Estim Creat Clear Calc 28.9 Estimated GFR 28 Random Glucose 296 H Calcium 5.8 L* Phosphorus 2.0 L Magnesium 1.7 Triglycerides 169 Lipase 134 H Urine Eosinophils % 0.0 Procedures Date of Service Date of Service: 01/22/22 Progress Note: A&P Assessment and plan (1) Post-ERCP acute pancreatitis: Status: Acute Assessment and Plan: with ileus NGT in place- output difficult to quantify as pt has been drinking clears as per staff lipase now near normal continue current care dc ngt once ileus seems resolved Time Spent With Patient Time: Total time spent is greater than 50% in coordination of care (as documented) at patient's floor/unit and/or counseling patient: Quality Stroke Does the patient have a stroke diagnosis?: No VTE Prior VTE?: No VTE Risk Level:: Medical - moderate - high VTE Device Contraindication: Treatment Not Indicated VTE Drug Contraindication: N/A - Med Ordered
[2022-01-22] MEDS: Enoxaparin Sodium 30 MG/0.3 ML SYRINGE SUBCUT (08:15)
[2022-01-22 09:20] LABS: Hematocrit 31.4 % (37.0-47.0); Hemoglobin 10.3 g/dl (12.0-16.0); Mean Corpuscular HGB Conc 32.8 g/dl (31.0-35.0); Mean Corpuscular Hemoglobin 27.6 pg (27.0-33.0); Mean Corpuscular Volume 84.2 fL (80.0-98.0); Mean Platelet Volume 11.1 fL (9.4-12.3); Platelet Count 249 X10*3/uL (160-400); Red Blood Count 3.73 X10*6/uL (4.20-5.50); Red Cell Distribution Width 14.7 % (11.0-16.0); White Blood Count 13.6 X10*3/uL (4.8-10.8)
[2022-01-22 09:44] LABS: Anion Gap 18 (12-20); Blood Urea Nitrogen 35 mg/dL (9-16); Calcium 5.9 mg/dL (8.4-10.2); Carbon Dioxide 20 mmol/L (22-29); Chloride 102 mmol/L (96-108); Creatinine Clr Calc Pharmacy 44.8; Estimated Glomerular Filt Rate 47; Glucose Random 310 mg/dL (60-115); Potassium 3.6 mmol/L (3.3-5.1); Sodium 136 mmol/L (135-145)
--- NOTE | 2022-01-22 10:07 | HE.PHANOTE ---
PPN Pharmacy note left from last night saying patient had no PICC line access. Contacted CARLOS Sylvester in AM asking if patient had peripheral IV access because concentration of PPN can be run peripherally or centrally. Patient has peripheral access and PPN sent up for RN to hang
[2022-01-22 10:31] LABS: Albumin Level 2.6 g/dL (3.5-5.0); Magnesium 1.7 mg/dL (1.6-2.6); Phosphorus 2.1 mg/dL (2.7-4.5)
--- NOTE | 2022-01-22 10:48 | MHC.CLN ---
F/U DISCUSSED WITH PHARMACY DAY 3 OF PPN RECOMMEND INCREASING TO D10AA4.25 AT 65ML PER HOUR TO PROVIDE 796 KCALS, 66G PROTEIN (1.1G/KG) HOLDING LIPIDS FOR NOW REPLETE LYTES NEEDED
--- NOTE | 2022-01-22 11:52 | MHC.SLORD ---
Speech Language Pathology Order Status: Per Dr. Ortega, pt was placed with NG tube yesterday afternoon after CT suggested gastric ileus. Staff reported to MD that pt was taking clear liquids from staff. TRAFFIC SAFETY ADMINISTRATOR checked in with attending MD- Per Dr. Stewart, pt is not yet ready for bedside dysphagia evaluation. As previously noted, pt w/ persistent vomiting, has not been able to participate in dysphagia evaluation.
[2022-01-22] MEDS: Calcium Gluconate/NaCl,Iso-Osm 2 GM/100 ML PLAST..BAG IV (11:56)
--- NOTE | 2022-01-22 13:37 | HO.PM.IMPN ---
Subjective Subjective Date of Service: 01/22/22 Interval History: seen in f/u for post ERCP pancreatis, DONNIE, hypocalcemia, suspected aspiration pneumonia and overall not doing well. Interval history: Overall seem better today, no trouble breathing, pain is controlled, renal function is now normal, calcium remain low however, NGT still in with moderate output Review of Systems n/v abd discomfort no fever, Physical Exam Vital Signs: Vital Signs: Last Vital Signs Temp 97.9 F 01/22/22 11:36 Pulse 90 01/22/22 11:36 Resp 18 01/22/22 11:36 BP 126/67 01/22/22 11:36 Pulse Ox 95 01/22/22 11:36 O2 Del Method 01/22/22 11:36 O2 Flow Rate 5 01/22/22 11:36 BMI result Body Mass Index 37.8 Const: Other: General: AO X 3, no acute distress Resp: rhonchi, diminish breath sounds CVS: S1,S2,RRR GI: dimimihsed, BS, NT, no distention Skin: No rash Neuro: motor grossly intact Psych:depressed affect Objective Data Active Medications Albuterol/Ipratropium (Albuterol/Iprat 2.5/0.5mg 3 Ml Ampul.Neb) 3 ml INHALE RQ4H PRN PRN Reason: Shortness of Breath Last Admin: 01/21/22 11:17 Dose: 3 ml Documented By: MK Albuterol/Ipratropium (Albuterol/Iprat 2.5/0.5mg 3 Ml Ampul.Neb) 3 ml INHALE RQ6H WHILE AWAKE [facility] Last Admin: 01/22/22 07:40 Dose: 3 ml Documented By: MK Albuterol/Ipratropium (Albuterol/Iprat 2.5/0.5mg 3 Ml Ampul.Neb) 3 ml INHALE RQ4H PRN PRN Reason: Shortness of Breath Last Admin: 01/21/22 15:53 Dose: 3 ml Documented By: MK Enoxaparin Sodium (Enoxaparin Sodium 30 Mg/0.3 Ml Syringe) 30 mg SUBCUT Q24H [facility] Last Admin: 01/22/22 08:15 Dose: 30 mg Documented By: JACQUELINE Fluticasone/Vilanterol (Fluticasone/Vilanterol 200/25 Blst.W.Dev) 1 puff INHALE RDAILY [facility] Last Admin: 01/22/22 07:45 Dose: Not Given Documented By: MK Non-Admin Reason: Med Not Available Hydromorphone HCl (Hydromorphone Hcl 0.5 Mg/0.5 Ml Syringe) 0.75 mg IVPUSH Q4H PRN; Protocol PRN Reason: Pain, Severe (Pain Scale 7-10) Last Admin: 01/22/22 09:27 Dose: 0.75 mg Documented By: JACQUELINE Metronidazole (Flagyl) 500 mg in 100 mls @ 100 mls/hr IV Q8H [facility] Last Infusion: 01/22/22 09:32 Dose: 0 mls/hr Documented By: JACQUELINE Lactated Ringer's (Lr) 1,000 mls @ 75 mls/hr IVCONT .[id number] [facility] Last Admin: 01/22/22 03:00 Dose: 75 mls/hr Documented By: ANDREA Multivitamins 17 ml/ Trace Metals 1.7 ml/ Amino Acids/Electrolytes/Dextrose 1,200 mls @ 50 mls/hr IV DAILY@1800 [facility] Stop: 01/22/22 17:59 Last Admin: 01/22/22 08:27 Dose: 50 mls/hr Documented By: JACQUELINE Cefepime HCl 2 gm/ Sodium (Chloride) 50 mls @ 100 mls/hr IV Q24H [facility] Last Infusion: 01/21/22 16:25 Dose: 0 mls/hr Documented By: JACQUELINE Potassium Phosphate (Kphos) 15 mmol in 250 mls @ 62.5 mls/hr IV ONCE ONE Stop: 01/22/22 15:29 Multivitamins 12.8 ml/ Trace Metals 1.3 ml/ Amino Acids/Electrolytes/Dextrose 1,560 mls @ 65 mls/hr IV DAILY@1800 [facility] Stop: 01/23/22 17:59 Levothyroxine Sodium (Levothyroxine Sodium 75 Mcg Tablet) 75 mcg PO DAILY@0600 [facility] Last Admin: 01/22/22 05:22 Dose: Not Given Documented By: ANDREA Non-Admin Reason: NPO Mirabegron (Mirabegron 25 Mg Tab.Er.24h) 25 mg PO DAILY [facility] Last Admin: 01/22/22 08:10 Dose: Not Given Documented By: JACQUELINE Non-Admin Reason: NPO Omeprazole (Omeprazole 20 Mg Capsule.Dr) 20 mg PO DAILY@0630 [facility] Last Admin: 01/19/22 05:20 Dose: 20 mg Documented By: KENNEDY Ondansetron HCl (Ondansetron Hcl 4 Mg/2 Ml Vial) 4 mg IVPUSH Q8H PRN PRN Reason: Nausea and Vomiting Last Admin: 01/21/22 12:08 Dose: 4 mg Documented By: JACQUELINE Sodium Chloride (0.9 % Sodium Chloride Flush 3 Ml Syringe) 3 ml IVFLUSH QSHIFT [facility] Last Admin: 01/22/22 08:10 Dose: Not Given Documented By: JACQUELINE Non-Admin Reason: IV Running Labs CBC & Chem 7: 01/22/22 09:02 01/22/22 09:02 Labs: Laboratory Results - last 24 hr 01/22/22 01/22/22 09:02 09:02 MCV 84.2 MCH 27.6 MCHC 32.8 RDW 14.7 Plt Count 249 MPV 11.1 Absolute Nucleated RBC 0.000 Nucleated RBC % (auto) 0.0 Anion Gap 18 Estim Creat Clear Calc 44.8 Estimated GFR 47 Random Glucose 310 H Calcium 5.9 L* Phosphorus 2.1 L Magnesium 1.7 Albumin 2.6 L Assessment and Plan (1) Respiratory distress: Status: Acute (2) Nausea & vomiting: Status: Acute (3) Post-ERCP acute pancreatitis: Status: Acute (4) Common bile duct (CBD) obstruction: Status: Acute (5) Obesity (BMI 30-39.9): Status: Acute (6) Elevated LFTs: Status: Acute (7) Acute hypoxemic respiratory failure: Status: Acute (8) Atelectasis: Status: Acute (9) Hypoventilation: Status: Acute Plan 76 year old female with history of mild persistent asthma, hypothyroidism, gerd, hiatal hernia, bilateral calcific tendonitis, and urge incontinence admitted for choledocholithiais and now with post ECRCP pancreatitis, DONNIE and aspiration pneumonia. 1- Cholechodocholithiasis, s/p ERCP on 01/17 complicated by post op pancreatitis. -ultimately will need CCY once fully recovered from pancreatitis 2. Acute post ECRCP pancreaitis--most recent CT today reviewed with Dr. Quinn and not believed to be hemorragic pancraitis -Lipase has trended naun from 1356 to now 134 -continue NPO for now -continue TPN 3. HypOcalcemia d/t saponificatiion from pancreatitis, calcium is being replaced and shows no symptoms of hypocalcemia at this, will add additional calcium and phos to TPN ultimately could have rebound hypercalcemia, so closely monitor, nephrology helping as well 4. Aspiration pneumonia--Cefepime D2, WBC trending down, there is conflicting report about pen allergy status (pt states no, family says yes and doens't want zosyn) 5. acute hypoxemic respiratory failure possible mulifactorial :atelactatsis , morbid obesity, hypoventilation,anxiety , also hx persistent asthma and pneumonia as above -has been follow by pulmonology, seen by ICU yesterday and no indication for ICU care, incentive spirometry, wean off O2 as tolerated,echo finding reviewed, no evidence of heart failure 6-Acute UTI--negative culture, should be adequately covered with above Abx 3-Hypothyroidism- stable -Continue levothyroxine 4-GERD- stable -EGD 07/01 with strictures with balloon dilitation 6. DONNIE --likely from shift in fluid, from pancreatitis, pre renal state--overall improving, continue IVF and continue monitoring renal function DVT prophylaxis- lovenox ? Need for inpatient:?Patient is nearly cricitically ill with post ERCP pancreatitis, NPO, hypocalcemia, PNA on IV Abx family is been updated along the way Quality Stroke Does the patient have a stroke diagnosis?: No VTE Prior VTE?: No VTE Risk Level:: Medical - moderate - high VTE Device Contraindication: Treatment Not Indicated VTE Drug Contraindication: N/A - Med Ordered
--- NOTE | 2022-01-22 14:17 | PC.NURSE ---
Patient transported back to room. Left PICC line placed. Oozing and dressing is saturated.
[2022-01-22] MEDS: Potassium Phosphate/NS 15 MMOL/250 ML PLAST..BAG 62.5 MMOL IV (14:22)
[2022-01-22] MEDS: Lidocaine HCl 1 % 20 ML VIAL 6 ML SUBCUT (14:55)
[2022-01-22] MEDS: cefEPime HCl 2 GM in 0.9 % Sodium Chloride 50 ML IV (15:20)
--- NOTE | 2022-01-22 16:18 | PM.PNNEP ---
Subjective Subjective Date of Service: 01/22/22 Interval history: Seen and examiend, events noted Physical Exam Vital Signs: Vital Signs: Last Vital Signs Temp 97.4 F 01/22/22 15:08 Pulse 96 01/22/22 15:08 Resp 18 01/22/22 15:08 BP 116/81 01/22/22 15:08 Pulse Ox 96 01/22/22 15:08 O2 Del Method 01/22/22 15:08 O2 Flow Rate 5 01/22/22 15:08 BMI result Body Mass Index 37.8 Const: Other: General: AO X 3, no acute distress Resp: rhonchi, diminish breath sounds CVS: S1,S2,RRR GI: dimimihsed, BS, NT, no distention Skin: No rash Neuro: motor grossly intact Psych:depressed affect General: no acute distress, alert and awake; No cooperative (Confused) Orientation/consciousness: patient oriented x3 Limitations: No language barrier HEENT: Head: Yes normal to inspection (Could not examine) General nose exam: No nasal polyps present and No nasal discharge present Face and sinus: Yes sinuses nontender Mouth: oropharynx normal Throat: Yes posterior oropharynx normal Eyes: General: appearance normal, both eyes and all related structures Neck: Neck: Yes normal visual inspection, Yes no lymphadenopathy, Yes trachea midline, Yes no JVD and Yes other (Neck is quite obese) Thyroid: Thyroid normal Chest: Chest palpation & inspection: normal inspection of the chest, normal palpation of entire chest wall and no tenderness Resp: Other: Percussion note not perceptible over the lower lobes because of thick chest wall. Breath sounds were diminished especially over the lower lobe areas. Patient is not taking deep breaths but there are a few inspiratory crackles over the basilar areas. No wheezes are heard . Effort & Inspection: normal respiratory effort Auscultation: clear to auscultation bilaterally Cardio: Palpation: normal PMI Rate: regular rate Rhythm: regular rhythm Heart sounds: no gallops and no murmurs GI: Inspection: Yes normal to inspection Palpation (GI): Soft to palpation, not firm, nontender, no guarding, not rigid, No hepatosplenomegaly present, no masses and Other GI palpation findings present (Abdomen is grossly obese) Auscultation: normal bowel sounds Back/Spine/Pelvis: Thoracic/Lumbar Spine: thoracic and lumbar spine normal to inspection Skin: General skin exam: no rashes or lesions noted Neuro: General: patient oriented x3 and no focal motor deficits Cranial nerves: Yes CN's II-XII intact bilaterally Extrem: General: Yes normal to inspection, Yes no clubbing, cyanosis or edema and Yes no calf tenderness Psych: Other: Patient is the somewhat confused and non-conversant at this time, Appearance: grossly normal Objective Data Labs CBC & Chem 7: 01/22/22 09:02 01/22/22 09:02 Labs: Laboratory Results - last 24 hr 01/22/22 01/22/22 09:02 09:02 WBC 13.6 H RBC 3.73 L Hgb 10.3 L Hct 31.4 L MCV 84.2 MCH 27.6 MCHC 32.8 RDW 14.7 Plt Count 249 MPV 11.1 Absolute Nucleated RBC 0.000 Nucleated RBC % (auto) 0.0 Sodium 136 Potassium 3.6 Chloride 102 Carbon Dioxide 20 L Anion Gap 18 BUN 35 H Creatinine 1.13 Estim Creat Clear Calc 44.8 Estimated GFR 47 Random Glucose 310 H Calcium 5.9 L* Phosphorus 2.1 L Magnesium 1.7 Albumin 2.6 L Microbiology Microbiology Results: Microbiology 01/15/22 Unknown Urine clean catch - Urine seymour top Urine Culture - Final Procedures Date of Service Date of Service: 01/22/22 Assessment & Plan Assessment and plan (1) Respiratory distress: Status: Acute (2) Nausea & vomiting: Status: Acute (3) Post-ERCP acute pancreatitis: Status: Acute (4) Common bile duct (CBD) obstruction: Status: Acute (5) Obesity (BMI 30-39.9): Status: Acute (6) Elevated LFTs: Status: Acute (7) Acute hypoxemic respiratory failure: Status: Acute (8) Atelectasis: Status: Acute (9) Hypoventilation: Status: Acute Plan 1. DONNIE: resolving; c/w epiode of renal hypoperfsuion from pancratitis 2. HypoCa: w/o symptoms; c/w acute pancreatitis 3. Acute pancreatitis 4. Hypervol with decr IV vol c/w 3rd spacing form pancreatits Disc: overall looking better and DONNIE resolving is a good sign REC: cont cuaitous Ca replacement to avoid rebound hyperCa; track UOP/renal func; avoid NToxins Time Spent With Patient Time: Total time spent is greater than 50% in coordination of care (as documented) at patient's floor/unit and/or counseling patient: Progress Note: Quality Stroke Does the patient have a stroke diagnosis?: No
--- NOTE | 2022-01-22 16:51 | MHC.CM.PN ---
Female 76 DX Illeus. No DC today. Patient has an NG tube. DP home with services vs STR via BLS.
--- NOTE | 2022-01-22 18:25 | PC.NURSE ---
Patient repositioned for comfort throughout the day. NG tube in place draining moderate amt. Dark green. Patient having expiratory wheezes being managed with duonebs. Patient c/ shabbir back pain, IV 0.75 dilaudid given with some relief. Patient c/o of worsening shortness of breath. MD Stewart aware and ordered repeat cxr. Left picc line oozing serous fluid, Dressing changed. Patient requesting water but is NPO.
[2022-01-23] VITALS (13 sets, daily range): BP systolic 124–152; BP diastolic 63–87; PULSE 88–101; RESP 18–20; TEMP 36.1–36.7; O2SAT 94–97
[2022-01-23] MEDS: Albuterol/Iprat 2.5/0.5MG 3 ML AMPUL.NEB INHALE ×4 (00:13→19:40)
[2022-01-23] MEDS: 0.9 % Sodium Chloride Flush 3 ML SYRINGE IVFLUSH ×3 (00:55→16:33)
[2022-01-23] MEDS: metroNIDAZOLE/NS 500 MG/100 ML PIGGYBACK 100 MG IV ×3 (00:55→16:37)
[2022-01-23] MEDS: HYDROmorphone HCl 0.5 MG/0.5 ML SYRINGE 0.75 MG IVPUSH ×3 (03:44→19:58)
[2022-01-23] MEDS: Fluticasone/Vilanterol 200/25 BLST.W.DEV 1 PUFF INHALE (07:47)
--- NOTE | 2022-01-23 08:32 | PM.PNGS ---
Subjective Subjective Date of Service: 01/23/22 Interval history: Seems to be more alert today Appears more comfortable as well NG tube output still significant Patient denies severe pain on abdomen Wants to eat Physical Exam Vital Signs: Vital Signs: Last Vital Signs Temp 98.1 F 01/23/22 07:58 Pulse 98 01/23/22 07:58 Resp 18 01/23/22 07:58 BP 137/87 01/23/22 07:58 Pulse Ox 94 01/23/22 07:58 O2 Del Method 01/23/22 07:58 O2 Flow Rate 6 01/23/22 07:58 BMI result Body Mass Index 37.8 Const: Other: Obese General: no acute distress Resp: Effort & Inspection: normal respiratory effort GI: Other: Soft, no guarding or rebound, no significant tenderness Objective Data Active Medications Acetaminophen (Acetaminophen Supp 650 Mg Supp.Rect) 650 mg OR Q6H PRN PRN Reason: Fever Albuterol/Ipratropium (Albuterol/Iprat 2.5/0.5mg 3 Ml Ampul.Neb) 3 ml INHALE RQ4H PRN PRN Reason: Shortness of Breath Last Admin: 01/23/22 06:09 Dose: 3 ml Documented By: NILDA Albuterol/Ipratropium (Albuterol/Iprat 2.5/0.5mg 3 Ml Ampul.Neb) 3 ml INHALE RQ6H WHILE AWAKE [facility] Last Admin: 01/23/22 07:40 Dose: Not Given Documented By: TYRON Non-Admin Reason: prn given at 0609 Albuterol/Ipratropium (Albuterol/Iprat 2.5/0.5mg 3 Ml Ampul.Neb) 3 ml INHALE RQ4H PRN PRN Reason: Shortness of Breath Last Admin: 01/21/22 15:53 Dose: 3 ml Documented By: MK Enoxaparin Sodium (Enoxaparin Sodium 30 Mg/0.3 Ml Syringe) 30 mg SUBCUT Q24H [facility] Last Admin: 01/22/22 08:15 Dose: 30 mg Documented By: JACQUELINE Fluticasone/Vilanterol (Fluticasone/Vilanterol 200/25 Blst.W.Dev) 1 puff INHALE RDAILY [facility] Last Admin: 01/23/22 07:47 Dose: 1 puff Documented By: TYRON Hydromorphone HCl (Hydromorphone Hcl 0.5 Mg/0.5 Ml Syringe) 0.75 mg IVPUSH Q4H PRN; Protocol PRN Reason: Pain, Severe (Pain Scale 7-10) Last Admin: 01/23/22 03:44 Dose: 0.75 mg Documented By: ERNST Metronidazole (Flagyl) 500 mg in 100 mls @ 100 mls/hr IV Q8H [facility] Last Infusion: 01/23/22 01:58 Dose: 0 mls/hr Documented By: ERNST Cefepime HCl 2 gm/ Sodium (Chloride) 50 mls @ 100 mls/hr IV Q24H [facility] Last Infusion: 01/22/22 17:23 Dose: 0 mls/hr Documented By: JACQUELINE Multivitamins 12.8 ml/ Trace Metals 1.3 ml/ Amino Acids/Electrolytes/Dextrose 1,560 mls @ 65 mls/hr IV DAILY@1800 [facility] Stop: 01/23/22 17:59 Last Admin: 01/22/22 19:28 Dose: 65 mls/hr Documented By: JACQUELINE Levothyroxine Sodium (Levothyroxine Sodium 75 Mcg Tablet) 75 mcg PO DAILY@0600 [facility] Last Admin: 01/23/22 06:34 Dose: Not Given Documented By: ERNST Non-Admin Reason: NPO Mirabegron (Mirabegron 25 Mg Tab.Er.24h) 25 mg PO DAILY [facility] Last Admin: 01/22/22 08:10 Dose: Not Given Documented By: JACQUELINE Non-Admin Reason: NPO Omeprazole (Omeprazole 20 Mg Capsule.Dr) 20 mg PO DAILY@0630 [facility] Last Admin: 01/19/22 05:20 Dose: 20 mg Documented By: KENNEDY Ondansetron HCl (Ondansetron Hcl 4 Mg/2 Ml Vial) 4 mg IVPUSH Q8H PRN PRN Reason: Nausea and Vomiting Last Admin: 01/21/22 12:08 Dose: 4 mg Documented By: JACQUELINE Sodium Chloride (0.9 % Sodium Chloride Flush 3 Ml Syringe) 3 ml IVFLUSH QSHIFT [facility] Last Admin: 01/23/22 00:55 Dose: 3 ml Documented By: ERNST Labs CBC & Chem 7: 01/22/22 09:02 01/22/22 09:02 Labs: Laboratory Results - last 24 hr 01/22/22 01/22/22 09:02 09:02 MCV 84.2 MCH 27.6 MCHC 32.8 RDW 14.7 Plt Count 249 MPV 11.1 Absolute Nucleated RBC 0.000 Nucleated RBC % (auto) 0.0 Anion Gap 18 Estim Creat Clear Calc 44.8 Estimated GFR 47 Random Glucose 310 H Calcium 5.9 L* Phosphorus 2.1 L Magnesium 1.7 Albumin 2.6 L Procedures Date of Service Date of Service: 01/23/22 Progress Note: A&P Assessment and plan (1) Ileus: Status: Acute Assessment and Plan: Ileus likely secondary to post ERCP pancreatitis CT reviewed NG tube still high - would keep in place Out of bed to recliner Looks much more comfortable Lipase near normal Abdominal exam otherwise benign Will continue to follow closely Time Spent With Patient Time: Total time spent is greater than 50% in coordination of care (as documented) at patient's floor/unit and/or counseling patient: Quality Stroke Does the patient have a stroke diagnosis?: No VTE Prior VTE?: No VTE Risk Level:: Medical - moderate - high VTE Device Contraindication: Treatment Not Indicated VTE Drug Contraindication: N/A - Med Ordered
[2022-01-23] MEDS: Enoxaparin Sodium 30 MG/0.3 ML SYRINGE SUBCUT (09:36)
[2022-01-23] MEDS: Mirabegron 25 MG TAB.ER.24H PO (09:36)
[2022-01-23 09:37] LABS: Anion Gap 17 (12-20); Blood Urea Nitrogen 24 mg/dL (9-16); Calcium 6.7 mg/dL (8.4-10.2); Carbon Dioxide 23 mmol/L (22-29); Chloride 102 mmol/L (96-108); Creatinine Clr Calc Pharmacy 61.7; Estimated Glomerular Filt Rate > 60; Potassium 3.8 mmol/L (3.3-5.1); Sodium 138 mmol/L (135-145)
[2022-01-23 09:39] LABS: Glucose Random 367 mg/dL (60-115)
--- NOTE | 2022-01-23 10:35 | PM.PNNEP ---
Subjective Subjective Date of Service: 01/23/22 Interval history: Seen and examiend, events noted Physical Exam Vital Signs: Vital Signs: Last Vital Signs Temp 98.1 F 01/23/22 07:58 Pulse 98 01/23/22 07:58 Resp 18 01/23/22 07:58 BP 137/87 01/23/22 07:58 Pulse Ox 94 01/23/22 07:58 O2 Del Method 01/23/22 07:58 O2 Flow Rate 6 01/23/22 07:58 BMI result Body Mass Index 37.8 Const: Other: General: AO X 3, no acute distress Resp: rhonchi, diminish breath sounds CVS: S1,S2,RRR GI: dimimihsed, BS, NT, no distention Skin: No rash Neuro: motor grossly intact Psych:depressed affect General: no acute distress, alert and awake; No cooperative (Confused) Orientation/consciousness: patient oriented x3 Limitations: No language barrier HEENT: Head: Yes normal to inspection (Could not examine) General nose exam: No nasal polyps present and No nasal discharge present Face and sinus: Yes sinuses nontender Mouth: oropharynx normal Throat: Yes posterior oropharynx normal Eyes: General: appearance normal, both eyes and all related structures Neck: Neck: Yes normal visual inspection, Yes no lymphadenopathy, Yes trachea midline, Yes no JVD and Yes other (Neck is quite obese) Thyroid: Thyroid normal Chest: Chest palpation & inspection: normal inspection of the chest, normal palpation of entire chest wall and no tenderness Resp: Other: Percussion note not perceptible over the lower lobes because of thick chest wall. Breath sounds were diminished especially over the lower lobe areas. Patient is not taking deep breaths but there are a few inspiratory crackles over the basilar areas. No wheezes are heard . Effort & Inspection: normal respiratory effort Auscultation: clear to auscultation bilaterally Cardio: Palpation: normal PMI Rate: regular rate Rhythm: regular rhythm Heart sounds: no gallops and no murmurs GI: Inspection: Yes normal to inspection Palpation (GI): Soft to palpation, not firm, nontender, no guarding, not rigid, No hepatosplenomegaly present, no masses and Other GI palpation findings present (Abdomen is grossly obese) Auscultation: normal bowel sounds Back/Spine/Pelvis: Thoracic/Lumbar Spine: thoracic and lumbar spine normal to inspection Skin: General skin exam: no rashes or lesions noted Neuro: General: patient oriented x3 and no focal motor deficits Cranial nerves: Yes CN's II-XII intact bilaterally Extrem: General: Yes normal to inspection, Yes no clubbing, cyanosis or edema and Yes no calf tenderness Psych: Other: Patient is the somewhat confused and non-conversant at this time, Appearance: grossly normal Objective Data Labs CBC & Chem 7: 01/22/22 09:02 01/23/22 08:43 Labs: Laboratory Results - last 24 hr 01/23/22 08:43 Sodium 138 Potassium 3.8 Chloride 102 Carbon Dioxide 23 Anion Gap 17 BUN 24 H Creatinine 0.82 Estim Creat Clear Calc 61.7 Estimated GFR > 60 Random Glucose 367 H* Calcium 6.7 L D Microbiology Microbiology Results: Microbiology 01/15/22 Unknown Urine clean catch - Urine seymour top Urine Culture - Final Procedures Date of Service Date of Service: 01/23/22 Assessment & Plan Assessment and plan (1) Respiratory distress: Status: Acute (2) Nausea & vomiting: Status: Acute (3) Post-ERCP acute pancreatitis: Status: Acute (4) Common bile duct (CBD) obstruction: Status: Acute (5) Obesity (BMI 30-39.9): Status: Acute (6) Elevated LFTs: Status: Acute (7) Acute hypoxemic respiratory failure: Status: Acute (8) Atelectasis: Status: Acute (9) Hypoventilation: Status: Acute Plan 1. DONNIE: resolved 2. HypoCa: w/o symptoms; imporving 3. Acute pancreatitis 4. Hypervol with decr IV vol c/w 3rd spacing form pancreatits Disc: overall looking better and DONNIE resolving is a good sign REC: cont cuaitous Ca replacement to avoid rebound hyperCa; track UOP/renal func; avoid NToxins will sign off call prn Time Spent With Patient Time: Total time spent is greater than 50% in coordination of care (as documented) at patient's floor/unit and/or counseling patient: Progress Note: Quality Stroke Does the patient have a stroke diagnosis?: No
--- NOTE | 2022-01-23 10:43 | MHC.CLN ---
F/U REVIEWED LABS DISCUSSED WITH PHARMACY DAY 4 OF PPN RECOMMEND INCREASING TO D10AA4.25 AT 90ML PER HOUR TO PROVIDE 1102 KCALS, 92G PROTEIN (1.5G/KG BASED ON CMW) HOLD LIPIDS REPLETE LYTES NEEDED
[2022-01-23] MEDS: ondansetron HCL 4 MG/2 ML VIAL IVPUSH (11:35)
--- NOTE | 2022-01-23 12:47 | P.PNIM_ITS ---
Subjective Subjective Date of Service: 01/23/22 Interval History: seen in f/u for post ERCP pancreatis, DONNIE, hypocalcemia, suspected aspiration pneumonia and overall not doing well. Interval history: overall continues to improve, NGT still with significant drainage, no abd pain, episodes of anxiety/agitation lastnight but now calm, no sob Review of Systems n/v abd discomfort no fever, Physical Exam Vital Signs: Vital Signs: Last Vital Signs Temp 97.9 F 01/23/22 11:30 Pulse 94 01/23/22 11:30 Resp 20 01/23/22 11:30 BP 144/82 H 01/23/22 11:30 Pulse Ox 95 01/23/22 11:30 O2 Del Method 01/23/22 11:30 O2 Flow Rate 6 01/23/22 11:30 BMI result Body Mass Index 37.8 Const: Other: General: AO X 2, no acute distress Resp: rhonchi, diminish breath sounds CVS: S1,S2,RRR, no leg edema GI: dimimihsed, BS, NT, no distention Skin: No rash Neuro: motor grossly intact Psych:depressed affect Objective Data Active Medications Acetaminophen (Acetaminophen Supp 650 Mg Supp.Rect) 650 mg [place] Q6H PRN PRN Reason: Fever Albuterol/Ipratropium (Albuterol/Iprat 2.5/0.5mg 3 Ml Ampul.Neb) 3 ml INHALE RQ4H PRN PRN Reason: Shortness of Breath Last Admin: 01/23/22 06:09 Dose: 3 ml Documented By: NILDA Albuterol/Ipratropium (Albuterol/Iprat 2.5/0.5mg 3 Ml Ampul.Neb) 3 ml INHALE RQ6H WHILE AWAKE [facility] Last Admin: 01/23/22 07:40 Dose: Not Given Documented By: TYRON Non-Admin Reason: prn given at 0609 Albuterol/Ipratropium (Albuterol/Iprat 2.5/0.5mg 3 Ml Ampul.Neb) 3 ml INHALE RQ4H PRN PRN Reason: Shortness of Breath Last Admin: 01/21/22 15:53 Dose: 3 ml Documented By: MK Enoxaparin Sodium (Enoxaparin Sodium 30 Mg/0.3 Ml Syringe) 30 mg SUBCUT Q24H [facility] Last Admin: 01/23/22 09:36 Dose: 30 mg Documented By: SAMY Fluticasone/Vilanterol (Fluticasone/Vilanterol 200/25 Blst.W.Dev) 1 puff INHALE RDAILY [facility] Last Admin: 01/23/22 07:47 Dose: 1 puff Documented By: TYRON Hydromorphone HCl (Hydromorphone Hcl 0.5 Mg/0.5 Ml Syringe) 0.75 mg IVPUSH Q4H PRN; Protocol PRN Reason: Pain, Severe (Pain Scale 7-10) Last Admin: 01/23/22 12:15 Dose: 0.75 mg Documented By: SAMY Metronidazole (Flagyl) 500 mg in 100 mls @ 100 mls/hr IV Q8H [facility] Last Infusion: 01/23/22 10:53 Dose: 0 mls/hr Documented By: SAMY Cefepime HCl 2 gm/ Sodium (Chloride) 50 mls @ 100 mls/hr IV Q24H [facility] Last Infusion: 01/22/22 17:23 Dose: 0 mls/hr Documented By: JACQUELINE Multivitamins 12.8 ml/ Trace Metals 1.3 ml/ Amino Acids/Electrolytes/Dextrose 1,560 mls @ 65 mls/hr IV DAILY@1800 [facility] Stop: 01/23/22 17:59 Last Admin: 01/22/22 19:28 Dose: 65 mls/hr Documented By: JACQUELINE Levothyroxine Sodium (Levothyroxine Sodium 75 Mcg Tablet) 75 mcg PO DAILY@0600 [facility] Last Admin: 01/23/22 06:34 Dose: Not Given Documented By: ERNST Non-Admin Reason: NPO Mirabegron (Mirabegron 25 Mg Tab.Er.24h) 25 mg PO DAILY [facility] Last Admin: 01/23/22 09:36 Dose: 25 mg Documented By: SAMY Omeprazole (Omeprazole 20 Mg Capsule.Dr) 20 mg PO DAILY@0630 [facility] Last Admin: 01/19/22 05:20 Dose: 20 mg Documented By: KENNEDY Ondansetron HCl (Ondansetron Hcl 4 Mg/2 Ml Vial) 4 mg IVPUSH Q8H PRN PRN Reason: Nausea and Vomiting Last Admin: 01/23/22 11:35 Dose: 4 mg Documented By: SAMY Sodium Chloride (0.9 % Sodium Chloride Flush 3 Ml Syringe) 3 ml IVFLUSH QSHIFT [facility] Last Admin: 01/23/22 09:35 Dose: 3 ml Documented By: SAMY Labs CBC & Chem 7: 01/22/22 09:02 01/23/22 08:43 Labs: Laboratory Results - last 24 hr 01/23/22 08:43 Anion Gap 17 Estim Creat Clear Calc 61.7 Estimated GFR > 60 Random Glucose 367 H* Calcium 6.7 L D Assessment and Plan (1) Respiratory distress: Status: Acute (2) Nausea & vomiting: Status: Acute (3) Post-ERCP acute pancreatitis: Status: Acute (4) Common bile duct (CBD) obstruction: Status: Acute (5) Obesity (BMI 30-39.9): Status: Acute (6) Elevated LFTs: Status: Acute (7) Acute hypoxemic respiratory failure: Status: Acute (8) Atelectasis: Status: Acute (9) Hypoventilation: Status: Acute Plan 76 year old female with history of mild persistent asthma, hypothyroidism, gerd, hiatal hernia, bilateral calcific tendonitis, and urge incontinence admitted for choledocholithiais and now with post ECRCP pancreatitis, DONNIE and aspiration pneumonia. 1- Cholechodocholithiasis, s/p ERCP on 01/17 complicated by post op pancreatitis. -ultimately will need CCY once fully recovered from pancreatitis 2. Acute post ECRCP pancreaitis--most recent CT today reviewed with Dr. Quinn and not believed to be hemorragic pancraitis -Lipase has trended naun from 1356 to now 134 -continue NPO for now for ileus -continue TPN 3. HypOcalcemia d/t saponificatiion from pancreatitis, calcium is being replaced and shows no symptoms of hypocalcemia at this, will add additional calcium and phos to TPN ultimately could have rebound hypercalcemia, so closely monitor, nephrology helping as well 4. Aspiration pneumonia--Cefepime D3, WBC trending down, there is conflicting report about pen allergy status (pt states no, family says yes and doens't want zosyn) 5. acute hypoxemic respiratory failure possible mulifactorial :atelactatsis , morbid obesity, hypoventilation,anxiety , also hx persistent asthma and pneumonia as above -has been follow by pulmonology, seen by ICU and no indication for ICU care, incentive spirometry, wean off O2 as tolerated,echo finding reviewed, no evidence of heart failure 6-Acute UTI--negative culture, should be adequately covered with above Abx 3-Hypothyroidism- stable -Continue levothyroxine 4-GERD- stable -EGD 07/01 with strictures with balloon dilitation 6. DONNIE --likely from shift in fluid, from pancreatitis, pre renal state--overall improving, continue IVF and continue monitoring renal function 7. Diabetes with Hyperglycemia--add Lantus, SSI DVT prophylaxis- lovenox ? Need for inpatient:?Patient is nearly cricitically ill with post ERCP pancreatitis, NPO, hypocalcemia, PNA on IV Abx , TPN.. family is been updated along the way, I discussed care with daugter at bedside today Quality Stroke Does the patient have a stroke diagnosis?: No VTE Prior VTE?: No VTE Risk Level:: Medical - moderate - high VTE Device Contraindication: Treatment Not Indicated VTE Drug Contraindication: N/A - Med Ordered
--- NOTE | 2022-01-23 12:49 | MHC.SLORD ---
Speech Language Pathology Order Status: Per Nursing: Pt continues to have persistant nausea/vomiting, not appropriate for swallow this a.m. As this is 4th day attempting to complete BSE ordered 01/19/22, sent secure text to MD to Cancel order at this time, requesting that it be re-ordered when Medical Team continues to see need for assessment and when patient's GI issues have resolved.
[2022-01-23 12:51] LABS: Magnesium 1.9 mg/dL (1.6-2.6); Phosphorus 2.3 mg/dL (2.7-4.5)
[2022-01-23] MEDS: Insulin Glargine,Hum.rec.anlog 100 UNIT/ML 10 ML VIAL 10 UNIT SUBCUT (13:11)
[2022-01-23] MEDS: cefEPime HCl 2 GM in 0.9 % Sodium Chloride 50 ML IV (13:12)
[2022-01-23 16:41] LABS: Glucose, Whole Blood 321 mg/dL (60-115)
[2022-01-23] MEDS: Insulin Lispro 100 UNIT/ML 3 ML VIAL SUBCUT ×2 (16:41→19:58)
--- NOTE | 2022-01-23 18:54 | HE.PHANOTE ---
Dose adjustements Contacted md to change cefepime dose to 2 gram q8h ( from q24h) and increase lovenox dose from 30 mg to 40 mg. Patients renal fxn improved.
[2022-01-23 19:36] LABS: Urea, Random Urine 915 mg/dL
[2022-01-23 19:56] LABS: Glucose, Whole Blood 266 mg/dL (60-115)
--- NOTE | 2022-01-23 22:46 | PM.GIPN ---
Subjective Subjective Date of Service: 01/23/22 Interval History: more alert no abdominal pain has NGT with bilious output not passing gas still feeling thirsty Critical Care Time (minutes): 0 Physical Exam Vital Signs: Vital Signs: Last Vital Signs Temp 97.3 F 01/23/22 20:00 Pulse 96 01/23/22 20:19 Resp 20 01/23/22 20:19 BP 150/70 H 01/23/22 20:00 Pulse Ox 96 01/23/22 20:00 O2 Del Method 01/23/22 20:00 O2 Flow Rate 5 01/23/22 20:00 BMI result Body Mass Index 37.8 EXAM: GENERAL: The patient is obese VITAL SIGNS:see workflow HEENT: Nonicteric sclerae, PERRLA, EOMI. Oropharynx clear. Moist mucous membranes. Conjunctivae appear well perfused. No thyroid mass. CHEST: Chest wall is nontender. HEART: Regular rate and rhythm without murmurs. LUNGS: Clear to auscultation bilaterally. ABDOMEN: Soft, minimal bowel sounds, nontender, no organomegaly.no flank tenderness SKIN: No rash, no excessive bruising, petechiae, or purpura. NEUROLOGIC: Cranial nerves II-XII intact without motor/sensory deficit. psych--nml affect Objective Data Labs CBC & Chem 7: 01/22/22 09:02 01/23/22 08:43 Labs: Laboratory Results - last 24 hr 01/21/22 01/23/22 01/23/22 06:20 08:43 16:38 Sodium 138 Potassium 3.8 Chloride 102 Carbon Dioxide 23 Anion Gap 17 BUN 24 H Creatinine 0.82 Estim Creat Clear Calc 61.7 Estimated GFR > 60 POC Glucose 321 H Random Glucose 367 H* Calcium 6.7 L D Phosphorus 2.3 L Magnesium 1.9 Ur Random Urea 915 01/23/22 19:49 Sodium Potassium Chloride Carbon Dioxide Anion Gap BUN Creatinine Estim Creat Clear Calc Estimated GFR POC Glucose 266 H Random Glucose Calcium Phosphorus Magnesium Ur Random Urea Microbiology Microbiology Results: Microbiology 01/15/22 Unknown Urine clean catch - Urine seymour top Urine Culture - Final Procedures Date of Service Date of Service: 01/23/22 Progress Note: A&P Assessment and plan (1) Ileus: Status: Acute (2) Common bile duct (CBD) obstruction: Status: Acute Plan A/P: 1/ Choledocholithiasis and CBD obstruction s/p ERCP complicated by post ERCP pancreatitis 2/ ileus caused by 1/ as well as lyte defcn and opiate use 3/ aspiration overall improving slowly, labs normalized PLAN: 1/ replenish ca, cont with nutritional support 2/ cholecystectomy once recovers from pancreatitis Time Spent With Patient Time: Total time spent is greater than 50% in coordination of care (as documented) at patient's floor/unit and/or counseling patient: Quality Stroke Does the patient have a stroke diagnosis?: No VTE Prior VTE?: No VTE Risk Level:: Medical - moderate - high VTE Device Contraindication: Treatment Not Indicated VTE Drug Contraindication: N/A - Med Ordered
[2022-01-24] VITALS (11 sets, daily range): BP systolic 133–153; BP diastolic 60–81; PULSE 88–105; RESP 18–20; TEMP 36.2–37.9; O2SAT 88–97
[2022-01-24] MEDS: HYDROmorphone HCl 0.5 MG/0.5 ML SYRINGE 0.75 MG IVPUSH ×2 (00:18→04:01)
[2022-01-24] MEDS: metroNIDAZOLE/NS 500 MG/100 ML PIGGYBACK 100 MG IV ×4 (00:18→23:57)
[2022-01-24] MEDS: ondansetron HCL 4 MG/2 ML VIAL IVPUSH (04:01)
[2022-01-24] MEDS: Insulin Glargine,Hum.rec.anlog 100 UNIT/ML 10 ML VIAL 10 UNIT SUBCUT (07:35)
[2022-01-24] MEDS: 0.9 % Sodium Chloride Flush 3 ML SYRINGE IVFLUSH ×2 (07:36→21:36)
[2022-01-24] MEDS: Albuterol/Iprat 2.5/0.5MG 3 ML AMPUL.NEB INHALE ×2 (07:43→18:53)
[2022-01-24] MEDS: Fluticasone/Vilanterol 200/25 BLST.W.DEV 1 PUFF INHALE (07:47)
[2022-01-24] MEDS: Enoxaparin Sodium 30 MG/0.3 ML SYRINGE SUBCUT (07:47)
[2022-01-24] MEDS: Mirabegron 25 MG TAB.ER.24H PO (07:47)
[2022-01-24 07:57] LABS: Glucose, Whole Blood 355 mg/dL (60-115)
[2022-01-24] MEDS: Insulin Lispro 100 UNIT/ML 3 ML VIAL SUBCUT ×4 (07:57→21:36)
--- NOTE | 2022-01-24 09:10 | MHC.CM.PN ---
Female 76 DX Back pain N/V S/P ERCP r/t Pancreatis. She has devleoped a Post Op illeus. She continues with NG tube. PT harpreet recommends STR. Met with Dtr Preferences ontained. Referral have been sent out. She has 2 facilities following for discharge. [facility], [facility] and [facility]. DP STR via BLS.
--- NOTE | 2022-01-24 09:20 | PM.PNGS ---
Subjective Subjective Date of Service: 01/24/22 Interval history: denies abdl pain c/o back pain asking for food denies flatus Physical Exam Vital Signs: Vital Signs: Last Vital Signs Temp 97.1 F 01/24/22 07:36 Pulse 105 H 01/24/22 07:48 Resp 18 01/24/22 07:48 BP 145/78 H 01/24/22 07:36 Pulse Ox 92 01/24/22 07:36 O2 Del Method 01/24/22 07:36 O2 Flow Rate 6 01/24/22 07:36 BMI result Body Mass Index 37.8 Const: Other: obese General: no acute distress Resp: Effort & Inspection: normal respiratory effort Cardio: Rhythm: regular rhythm GI: Other: soft, no obvious tenderness, benign, no guarding or rebound Objective Data Active Medications Acetaminophen (Acetaminophen Supp 650 Mg Supp.Rect) 650 mg [place] Q6H PRN PRN Reason: Fever Albuterol/Ipratropium (Albuterol/Iprat 2.5/0.5mg 3 Ml Ampul.Neb) 3 ml INHALE RQ6H WHILE AWAKE [facility] Last Admin: 01/24/22 07:43 Dose: 3 ml Documented By: TYRON Albuterol/Ipratropium (Albuterol/Iprat 2.5/0.5mg 3 Ml Ampul.Neb) 3 ml INHALE RQ4H PRN PRN Reason: Shortness of Breath Last Admin: 01/21/22 15:53 Dose: 3 ml Documented By: MK Enoxaparin Sodium (Enoxaparin Sodium 30 Mg/0.3 Ml Syringe) 30 mg SUBCUT Q24H [facility] Last Admin: 01/24/22 07:47 Dose: 30 mg Documented By: SAMY Fluticasone/Vilanterol (Fluticasone/Vilanterol 200/25 Blst.W.Dev) 1 puff INHALE RDAILY [facility] Last Admin: 01/24/22 07:47 Dose: 1 puff Documented By: TYRON Hydromorphone HCl (Hydromorphone Hcl 0.5 Mg/0.5 Ml Syringe) 0.75 mg IVPUSH Q4H PRN; Protocol PRN Reason: Pain, Severe (Pain Scale 7-10) Last Admin: 01/24/22 04:01 Dose: 0.75 mg Documented By: ERNST Metronidazole (Flagyl) 500 mg in 100 mls @ 100 mls/hr IV Q8H [facility] Last Admin: 01/24/22 07:35 Dose: 100 mls/hr Documented By: SAMY Cefepime HCl 2 gm/ Sodium (Chloride) 50 mls @ 100 mls/hr IV Q24H [facility] Last Infusion: 01/23/22 14:34 Dose: 0 mls/hr Documented By: SAMY Multivitamins 10 ml/ Trace Metals 1 ml/ Amino Acids/Electrolytes/Dextrose 2,011 mls @ 90 mls/hr IV DAILY@1800 [facility] Stop: 01/24/22 16:21 Last Admin: 01/23/22 17:27 Dose: 90 mls/hr Documented By: SAMY Insulin Glargine (Insulin Glargine,Hum.Rec.Anlog 100 Unit/Ml 10 Ml Vial) 10 unit SUBCUT DAILY [facility] Last Admin: 01/24/22 07:35 Dose: 10 unit Documented By: SAMY Insulin Human Lispro (Insulin Lispro 100 Unit/Ml 3 Ml Vial) 0 unit SUBCUT QIDACHS [facility]; Protocol Last Admin: 01/24/22 07:57 Dose: 10 unit Documented By: SAMY Levothyroxine Sodium (Levothyroxine Sodium 75 Mcg Tablet) 75 mcg PO DAILY@0600 [facility] Last Admin: 01/24/22 05:09 Dose: Not Given Documented By: ERNST Non-Admin Reason: NPO Mirabegron (Mirabegron 25 Mg Tab.Er.24h) 25 mg PO DAILY [facility] Last Admin: 01/24/22 07:47 Dose: 25 mg Documented By: SAMY Omeprazole (Omeprazole 20 Mg Capsule.Dr) 20 mg PO DAILY@0630 [facility] Last Admin: 01/19/22 05:20 Dose: 20 mg Documented By: KENNEDY Ondansetron HCl (Ondansetron Hcl 4 Mg/2 Ml Vial) 4 mg IVPUSH Q8H PRN PRN Reason: Nausea and Vomiting Last Admin: 01/24/22 04:01 Dose: 4 mg Documented By: ERNST Sodium Chloride (0.9 % Sodium Chloride Flush 3 Ml Syringe) 3 ml IVFLUSH QSHIFT [facility] Last Admin: 01/24/22 07:36 Dose: 3 ml Documented By: SAMY Labs CBC & Chem 7: 01/22/22 09:02 01/23/22 08:43 Labs: Laboratory Results - last 24 hr 01/21/22 01/23/22 01/23/22 06:20 08:43 16:38 Anion Gap 17 Estim Creat Clear Calc 61.7 Estimated GFR > 60 POC Glucose 321 H Random Glucose 367 H* Calcium 6.7 L D Phosphorus 2.3 L Magnesium 1.9 Ur Random Urea 915 01/23/22 01/24/22 19:49 07:54 Anion Gap Estim Creat Clear Calc Estimated GFR POC Glucose 266 H 355 H* Random Glucose Calcium Phosphorus Magnesium Ur Random Urea Procedures Date of Service Date of Service: 01/24/22 Progress Note: A&P Assessment and plan (1) Ileus: Status: Acute Assessment and Plan: ileus from post ERCP pancreatitis much improved with NGT NGT output still high check KUB will consider clamping/unclamping trial later Time Spent With Patient Time: Total time spent is greater than 50% in coordination of care (as documented) at patient's floor/unit and/or counseling patient: Quality Stroke Does the patient have a stroke diagnosis?: No VTE Prior VTE?: No VTE Risk Level:: Medical - moderate - high VTE Device Contraindication: Treatment Not Indicated VTE Drug Contraindication: N/A - Med Ordered
[2022-01-24 09:58] LABS: Albumin Level 2.6 g/dL (3.5-5.0); Anion Gap 15 (12-20); Blood Urea Nitrogen 23 mg/dL (9-16); Calcium 7.3 mg/dL (8.4-10.2); Carbon Dioxide 26 mmol/L (22-29); Chloride 102 mmol/L (96-108); Creatinine Clr Calc Pharmacy 62.5; Estimated Glomerular Filt Rate > 60; Glucose Random 427 mg/dL (60-115); Magnesium 2.1 mg/dL (1.6-2.6); Phosphorus 2.3 mg/dL (2.7-4.5); Potassium 3.9 mmol/L (3.3-5.1); Sodium 139 mmol/L (135-145)
[2022-01-24 10:58] LABS: Glucose, Whole Blood 352 mg/dL (60-115)
--- NOTE | 2022-01-24 11:31 | MHC.CLN ---
F/U REVIEWED LABS DISCUSSED WITH PHARMACY DAY 5 OF PPN RECOMMEND CONTINUING D10AA4.25 AT 90ML PER HOUR PROVIDES 1102 KCALS, 92G PROTEIN (1.5G/KG BASED ON CMW) HOLD LIPIDS R/T HX PANCREATITIS REPLETE LYTES NEEDED
--- NOTE | 2022-01-24 12:14 | HO.PM.IMPN ---
Subjective Subjective Date of Service: 01/24/22 Interval History: seen in f/u for post ERCP pancreatis, DONNIE, hypocalcemia, suspected aspiration pneumonia and overall not doing well. Interval history: overall continues to improve but slowly, NGT still with significant drainage, no abd pain, calm, no sob Review of Systems n/v abd discomfort no fever, Physical Exam Vital Signs: Vital Signs: Last Vital Signs Temp 97.8 F 01/24/22 11:37 Pulse 93 01/24/22 11:37 Resp 20 01/24/22 11:37 BP 153/81 H 01/24/22 11:37 Pulse Ox 97 01/24/22 11:37 O2 Del Method 01/24/22 11:37 O2 Flow Rate 6 01/24/22 11:37 BMI result Body Mass Index 37.8 Const: Other: General: AO X 2, no acute distress Resp: rhonchi, diminish breath sounds CVS: S1,S2,RRR, no leg edema GI: dimimihsed, BS, NT, no distention Skin: No rash Neuro: motor grossly intact Psych:depressed affect Objective Data Active Medications Acetaminophen (Acetaminophen Supp 650 Mg Supp.Rect) 650 mg [place] Q6H PRN PRN Reason: Fever Albuterol/Ipratropium (Albuterol/Iprat 2.5/0.5mg 3 Ml Ampul.Neb) 3 ml INHALE RQ6H WHILE AWAKE [facility] Last Admin: 01/24/22 07:43 Dose: 3 ml Documented By: TYRON Albuterol/Ipratropium (Albuterol/Iprat 2.5/0.5mg 3 Ml Ampul.Neb) 3 ml INHALE RQ4H PRN PRN Reason: Shortness of Breath Last Admin: 01/21/22 15:53 Dose: 3 ml Documented By: MK Enoxaparin Sodium (Enoxaparin Sodium 30 Mg/0.3 Ml Syringe) 30 mg SUBCUT Q24H [facility] Last Admin: 01/24/22 07:47 Dose: 30 mg Documented By: SAMY Fluticasone/Vilanterol (Fluticasone/Vilanterol 200/25 Blst.W.Dev) 1 puff INHALE RDAILY [facility] Last Admin: 01/24/22 07:47 Dose: 1 puff Documented By: TYRON Hydromorphone HCl (Hydromorphone Hcl 0.5 Mg/0.5 Ml Syringe) 0.75 mg IVPUSH Q4H PRN; Protocol PRN Reason: Pain, Severe (Pain Scale 7-10) Last Admin: 01/24/22 04:01 Dose: 0.75 mg Documented By: ERNST Metronidazole (Flagyl) 500 mg in 100 mls @ 100 mls/hr IV Q8H [facility] Last Infusion: 01/24/22 10:28 Dose: 0 mls/hr Documented By: SAMY Cefepime HCl 2 gm/ Sodium (Chloride) 50 mls @ 100 mls/hr IV Q24H [facility] Last Infusion: 01/23/22 14:34 Dose: 0 mls/hr Documented By: SAMY Multivitamins 10 ml/ Trace Metals 1 ml/ Amino Acids/Electrolytes/Dextrose 2,011 mls @ 90 mls/hr IV DAILY@1800 [facility] Stop: 01/24/22 16:21 Last Admin: 01/23/22 17:27 Dose: 90 mls/hr Documented By: SAMY Multivitamins 10 ml/ Trace Metals 1 ml/ Amino Acids/Electrolytes/Dextrose 2,011 mls @ 90 mls/hr IV DAILY@1800 [facility] Stop: 01/25/22 16:21 Insulin Glargine (Insulin Glargine,Hum.Rec.Anlog 100 Unit/Ml 10 Ml Vial) 10 unit SUBCUT DAILY [facility] Last Admin: 01/24/22 07:35 Dose: 10 unit Documented By: SAMY Insulin Human Lispro (Insulin Lispro 100 Unit/Ml 3 Ml Vial) 0 unit SUBCUT QIDACHS [facility]; Protocol Last Admin: 01/24/22 11:30 Dose: 10 unit Documented By: SAMY Levothyroxine Sodium (Levothyroxine Sodium 75 Mcg Tablet) 75 mcg PO DAILY@0600 [facility] Last Admin: 01/24/22 05:09 Dose: Not Given Documented By: ERNST Non-Admin Reason: NPO Mirabegron (Mirabegron 25 Mg Tab.Er.24h) 25 mg PO DAILY [facility] Last Admin: 01/24/22 07:47 Dose: 25 mg Documented By: SAMY Omeprazole (Omeprazole 20 Mg Capsule.Dr) 20 mg PO DAILY@0630 [facility] Last Admin: 01/19/22 05:20 Dose: 20 mg Documented By: KENNEDY Ondansetron HCl (Ondansetron Hcl 4 Mg/2 Ml Vial) 4 mg IVPUSH Q8H PRN PRN Reason: Nausea and Vomiting Last Admin: 01/24/22 04:01 Dose: 4 mg Documented By: ERNST Sodium Chloride (0.9 % Sodium Chloride Flush 3 Ml Syringe) 3 ml IVFLUSH QSHIFT [facility] Last Admin: 01/24/22 07:36 Dose: 3 ml Documented By: SAMY Labs CBC & Chem 7: 01/22/22 09:02 01/24/22 09:20 Labs: Laboratory Results - last 24 hr 01/21/22 01/23/22 01/23/22 06:20 08:43 16:38 Anion Gap Estim Creat Clear Calc Estimated GFR POC Glucose 321 H Random Glucose Calcium Phosphorus 2.3 L Magnesium 1.9 Albumin Ur Random Urea 915 01/23/22 01/24/22 01/24/22 19:49 07:54 09:20 Anion Gap 15 Estim Creat Clear Calc 62.5 Estimated GFR > 60 POC Glucose 266 H 355 H* Random Glucose 427 H* Calcium 7.3 L D Phosphorus 2.3 L Magnesium 2.1 Albumin 2.6 L Ur Random Urea 01/24/22 10:51 Anion Gap Estim Creat Clear Calc Estimated GFR POC Glucose 352 H* Random Glucose Calcium Phosphorus Magnesium Albumin Ur Random Urea Assessment and Plan (1) Respiratory distress: Status: Acute (2) Nausea & vomiting: Status: Acute (3) Post-ERCP acute pancreatitis: Status: Acute (4) Common bile duct (CBD) obstruction: Status: Acute (5) Obesity (BMI 30-39.9): Status: Acute (6) Elevated LFTs: Status: Acute (7) Acute hypoxemic respiratory failure: Status: Acute (8) Atelectasis: Status: Acute (9) Hypoventilation: Status: Acute Plan 76 year old female with history of mild persistent asthma, hypothyroidism, gerd, hiatal hernia, bilateral calcific tendonitis, and urge incontinence admitted for choledocholithiais and now with post ECRCP pancreatitis, DONNIE and aspiration pneumonia. 1- Cholechodocholithiasis, s/p ERCP on 9/9 complicated by post op pancreatitis. -ultimately will need CCY once fully recovered from pancreatitis 2. Acute post ECRCP pancreaitis--most recent CT today reviewed with Dr. Quinn and not believed to be hemorragic pancraitis -Lipase has trended naun from 1356 to now 134 -Post ERCP ileus -continue NPO for now for ileus -continue TPN -continue nGT 3. HypOcalcemia d/t saponificatiion from pancreatitis, calcium is being replaced and shows no symptoms of hypocalcemia at this, will add additional calcium and phos to TPN ultimately could have rebound hypercalcemia, so closely monitor, nephrology helping as well 4. Aspiration pneumonia--Cefepime D4, WBC trending down, there is conflicting report about pen allergy status (pt states no, family says yes and doens't want zosyn) 5. acute hypoxemic respiratory failure possible mulifactorial :atelactatsis , morbid obesity, hypoventilation,anxiety , also hx persistent asthma and pneumonia as above -has been follow by pulmonology, seen by ICU and no indication for ICU care, incentive spirometry, wean off O2 as tolerated,echo finding reviewed, no evidence of heart failure 6-Acute UTI--negative culture, should be adequately covered with above Abx 3-Hypothyroidism- stable -Continue levothyroxine 4-GERD- stable -EGD 07/01 with strictures with balloon dilitation 6. DONNIE --likely from shift in fluid, from pancreatitis, pre renal state--overall improving, continue IVF and continue monitoring renal function 7. Diabetes with Hyperglycemia--add Lantus, SSI--> adjust for hyperglycemia DVT prophylaxis- lovenox ? Need for inpatient:?Patient is nearly cricitically ill with post ERCP pancreatitis, NPO, hypocalcemia, PNA on IV Abx , TPN.. family is been updated along the way, Quality Stroke Does the patient have a stroke diagnosis?: No VTE Prior VTE?: No VTE Risk Level:: Medical - moderate - high VTE Device Contraindication: Treatment Not Indicated VTE Drug Contraindication: N/A - Med Ordered
[2022-01-24] MEDS: cefEPime HCl 2 GM in 0.9 % Sodium Chloride 50 ML IV (13:54)
[2022-01-24 16:21] LABS: Glucose, Whole Blood 313 mg/dL (60-115)
[2022-01-24 20:40] LABS: Glucose, Whole Blood 254 mg/dL (60-115)
[2022-01-25] VITALS (9 sets, daily range): BP systolic 124–156; BP diastolic 71–88; PULSE 81–98; RESP 16–20; TEMP 36.4–36.8; O2SAT 90–99
[2022-01-25 07:34] LABS: Glucose, Whole Blood 371 mg/dL (60-115)
[2022-01-25] MEDS: Albuterol/Iprat 2.5/0.5MG 3 ML AMPUL.NEB INHALE ×3 (07:42→20:28)
[2022-01-25] MEDS: Fluticasone/Vilanterol 200/25 BLST.W.DEV 1 PUFF INHALE (07:42)
[2022-01-25 08:01] LABS: Anion Gap 14 (12-20); Blood Urea Nitrogen 23 mg/dL (9-16); Calcium 7.6 mg/dL (8.4-10.2); Carbon Dioxide 29 mmol/L (22-29); Chloride 100 mmol/L (96-108); Creatinine Clr Calc Pharmacy 64.9; Estimated Glomerular Filt Rate > 60; Glucose Random 400 mg/dL (60-115); Potassium 3.8 mmol/L (3.3-5.1); Sodium 139 mmol/L (135-145)
[2022-01-25] MEDS: Insulin Lispro 100 UNIT/ML 3 ML VIAL SUBCUT ×4 (08:19→21:22)
[2022-01-25] MEDS: Insulin Glargine,Hum.rec.anlog 100 UNIT/ML 10 ML VIAL 10 UNIT SUBCUT ×2 (08:19→10:49)
[2022-01-25] MEDS: metroNIDAZOLE/NS 500 MG/100 ML PIGGYBACK 100 MG IV ×3 (08:20→23:48)
[2022-01-25] MEDS: 0.9 % Sodium Chloride Flush 3 ML SYRINGE IVFLUSH ×2 (08:22→23:49)
[2022-01-25] MEDS: Mirabegron 25 MG TAB.ER.24H PO (09:16)
--- NOTE | 2022-01-25 09:22 | P.PNIM_ITS ---
Subjective Subjective Date of Service: 01/25/22 Interval History: seen in f/u for post ERCP pancreatis, DONNIE, hypocalcemia, suspected aspiration pneumonia and overall not doing well. Interval history: overall continues to improve but slowly, NGT still with significant drainage, no abd pain, Review of Systems no n/v abd discomfort no fever, Physical Exam Vital Signs: Vital Signs: Last Vital Signs Temp 98.0 F 01/25/22 07:13 Pulse 81 01/25/22 07:43 Resp 20 01/25/22 07:43 BP 156/76 H 01/25/22 07:13 Pulse Ox 93 01/25/22 07:13 O2 Del Method 01/25/22 07:13 O2 Flow Rate 6 01/25/22 07:13 BMI result Body Mass Index 37.8 Const: Other: General: AO X 2, no acute distress Resp: rhonchi, diminish breath sounds CVS: S1,S2,RRR, no leg edema GI: dimimihsed, BS, NT, no distention Skin: No rash Neuro: motor grossly intact Psych:depressed affect Objective Data Active Medications Acetaminophen (Acetaminophen Supp 650 Mg Supp.Rect) 650 mg [place] Q6H PRN PRN Reason: Fever Albuterol/Ipratropium (Albuterol/Iprat 2.5/0.5mg 3 Ml Ampul.Neb) 3 ml INHALE RQ6H WHILE AWAKE [facility] Last Admin: 01/25/22 07:42 Dose: 3 ml Documented By: TYRON Albuterol/Ipratropium (Albuterol/Iprat 2.5/0.5mg 3 Ml Ampul.Neb) 3 ml INHALE RQ4H PRN PRN Reason: Shortness of Breath Last Admin: 01/21/22 15:53 Dose: 3 ml Documented By: MK Enoxaparin Sodium (Enoxaparin Sodium 30 Mg/0.3 Ml Syringe) 30 mg SUBCUT Q24H [facility] Last Admin: 01/24/22 07:47 Dose: 30 mg Documented By: SAMY Fluticasone/Vilanterol (Fluticasone/Vilanterol 200/25 Blst.W.Dev) 1 puff INHALE RDAILY [facility] Last Admin: 01/25/22 07:42 Dose: 1 puff Documented By: TYRON Hydromorphone HCl (Hydromorphone Hcl 0.5 Mg/0.5 Ml Syringe) 0.75 mg IVPUSH Q4H PRN; Protocol PRN Reason: Pain, Severe (Pain Scale 7-10) Last Admin: 01/24/22 04:01 Dose: 0.75 mg Documented By: ERNST Metronidazole (Flagyl) 500 mg in 100 mls @ 100 mls/hr IV Q8H [facility] Last Admin: 01/25/22 08:20 Dose: 100 mls/hr Documented By: KALI Cefepime HCl 2 gm/ Sodium (Chloride) 50 mls @ 100 mls/hr IV Q24H [facility] Last Infusion: 01/24/22 16:37 Dose: 0 mls/hr Documented By: SAMY Multivitamins 10 ml/ Trace Metals 1 ml/ Amino Acids/Electrolytes/Dextrose 2,011 mls @ 90 mls/hr IV DAILY@1800 [facility] Stop: 01/25/22 16:21 Last Admin: 01/24/22 19:00 Dose: 90 mls/hr Documented By: SAMY Insulin Glargine (Insulin Glargine,Hum.Rec.Anlog 100 Unit/Ml 10 Ml Vial) 20 unit SUBCUT DAILY [facility] Insulin Glargine (Insulin Glargine,Hum.Rec.Anlog 100 Unit/Ml 10 Ml Vial) 10 unit SUBCUT ONCE ONE Stop: 01/25/22 09:21 Insulin Human Lispro (Insulin Lispro 100 Unit/Ml 3 Ml Vial) 0 unit SUBCUT [facility]I [facility]; Protocol Last Admin: 01/25/22 08:19 Dose: 10 unit Documented By: KALI Levothyroxine Sodium (Levothyroxine Sodium 75 Mcg Tablet) 75 mcg PO DAILY@0600 [facility] Last Admin: 01/25/22 05:34 Dose: Not Given Documented By: MISA Non-Admin Reason: NPO Mirabegron (Mirabegron 25 Mg Tab.Er.24h) 25 mg PO DAILY [facility] Last Admin: 01/25/22 09:16 Dose: 25 mg Documented By: KALI Omeprazole (Omeprazole 20 Mg Capsule.Dr) 20 mg PO DAILY@0630 [facility] Last Admin: 01/19/22 05:20 Dose: 20 mg Documented By: HO.RAINAS Ondansetron HCl (Ondansetron Hcl 4 Mg/2 Ml Vial) 4 mg IVPUSH Q8H PRN PRN Reason: Nausea and Vomiting Last Admin: 01/24/22 04:01 Dose: 4 mg Documented By: ERNST Sodium Chloride (0.9 % Sodium Chloride Flush 3 Ml Syringe) 3 ml IVFLUSH QSHIFT [facility] Last Admin: 01/25/22 08:22 Dose: 3 ml Documented By: KALI Labs CBC & Chem 7: 01/22/22 09:02 01/25/22 06:46 Labs: Laboratory Results - last 24 hr 01/24/22 01/24/22 01/24/22 09:20 10:51 15:53 Anion Gap 15 Estim Creat Clear Calc 62.5 Estimated GFR > 60 POC Glucose 352 H* 313 H Random Glucose 427 H* Calcium 7.3 L D Phosphorus 2.3 L Magnesium 2.1 Albumin 2.6 L 01/24/22 01/25/22 01/25/22 20:31 06:46 07:16 Anion Gap 14 Estim Creat Clear Calc 64.9 Estimated GFR > 60 POC Glucose 254 H 371 H* Random Glucose 400 H* Calcium 7.6 L Phosphorus Magnesium Albumin Assessment and Plan (1) Respiratory distress: Status: Acute (2) Nausea & vomiting: Status: Acute (3) Post-ERCP acute pancreatitis: Status: Acute (4) Common bile duct (CBD) obstruction: Status: Acute (5) Obesity (BMI 30-39.9): Status: Acute (6) Elevated LFTs: Status: Acute (7) Acute hypoxemic respiratory failure: Status: Acute (8) Atelectasis: Status: Acute (9) Hypoventilation: Status: Acute Plan 76 year old female with history of mild persistent asthma, hypothyroidism, gerd, hiatal hernia, bilateral calcific tendonitis, and urge incontinence admitted for choledocholithiais and now with post ECRCP pancreatitis, DONNIE and aspiration pneumonia. 1- Cholechodocholithiasis, s/p ERCP on 01/17 complicated by post op pancreatitis. -ultimately will need CCY once fully recovered from acute illness 2. Acute post ECRCP pancreaitis--most recent CT today reviewed with Dr. Quinn and not believed to be hemorragic pancraitis -Lipase has trended naun from 1356 to now 134 -Post ERCP ileus -continue NPO for now for ileus -continue TPN -continue nGT -check LFTS 3. HypOcalcemia d/t saponificatiion from pancreatitis, calcium is being replaced and shows no symptoms of hypocalcemia at this, will add additional calcium and phos to TPN ultimately could have rebound hypercalcemia, so closely monitor, nephrology helping as well..Overall improving 4. Aspiration pneumonia--Cefepime D5, WBC trending down, there is conflicting report about pen allergy status (pt states no, family says yes and doens't want zosyn) 5. acute hypoxemic respiratory failure possible mulifactorial :atelactatsis , morbid obesity, hypoventilation,anxiety , also hx persistent asthma and pneumonia as above -has been follow by pulmonology, seen by ICU and no indication for ICU care, i ncentive spirometry, wean off O2 as tolerated,echo finding reviewed, no evidence of heart failure 6-Acute UTI--negative culture, should be adequately covered with above Abx 3-Hypothyroidism- stable -Continue levothyroxine 4-GERD- stable -EGD 07/01 with strictures with balloon dilitation 6. DONNIE --likely from shift in fluid, from pancreatitis, pre renal state--overall improving, continue IVF and continue monitoring renal function 7. Diabetes with Hyperglycemia--Increase Lantus, adjust parameters of SSI--> adjust for hyperglycemia 8. Ileus still with signficant output from NGT.. surgery following DVT prophylaxis- lovenox ? Need for inpatient:?Patient is nearly cricitically ill with post ERCP pancreatitis, NPO, hypocalcemia, severe ileus PNA on IV Abx , TPN.. family is been updated along the way, Quality Stroke Does the patient have a stroke diagnosis?: No VTE Prior VTE?: No VTE Risk Level:: Medical - moderate - high VTE Device Contraindication: Treatment Not Indicated VTE Drug Contraindication: N/A - Med Ordered
--- NOTE | 2022-01-25 09:55 | PM.PNGS ---
Subjective Subjective Date of Service: 01/25/22 Interval history: Patient denies abdominal pain at this time. Complains of feeling hungry, thirsty. Does still feel distended; denies bowel movement or flatus. Physical Exam Vital Signs: Vital Signs: Last Vital Signs Temp 98.0 F 01/25/22 07:13 Pulse 81 01/25/22 07:43 Resp 20 01/25/22 07:43 BP 156/76 H 01/25/22 07:13 Pulse Ox 93 01/25/22 07:13 O2 Del Method 01/25/22 07:13 O2 Flow Rate 6 01/25/22 07:13 BMI result Body Mass Index 37.8 Const: Other: Awake, alert, in no acute distress HEENT: Other: NG tube in place, functioning well Resp: Other: Breathing comfortably GI: Other: Obese, distended, nontender palpation. No definite tympany to percussion. NG tube still with high output of bilious/feculent fluid Skin: Other: Warm and dry Objective Data Active Medications Acetaminophen (Acetaminophen Supp 650 Mg Supp.Rect) 650 mg [place] Q6H PRN PRN Reason: Fever Albuterol/Ipratropium (Albuterol/Iprat 2.5/0.5mg 3 Ml Ampul.Neb) 3 ml INHALE RQ6H WHILE AWAKE [facility] Last Admin: 01/25/22 07:42 Dose: 3 ml Documented By: TYRON Albuterol/Ipratropium (Albuterol/Iprat 2.5/0.5mg 3 Ml Ampul.Neb) 3 ml INHALE RQ4H PRN PRN Reason: Shortness of Breath Last Admin: 01/21/22 15:53 Dose: 3 ml Documented By: MK Enoxaparin Sodium (Enoxaparin Sodium 30 Mg/0.3 Ml Syringe) 30 mg SUBCUT Q24H [facility] Last Admin: 01/24/22 07:47 Dose: 30 mg Documented By: SAMY Fluticasone/Vilanterol (Fluticasone/Vilanterol 200/25 Blst.W.Dev) 1 puff INHALE RDAILY [facility] Last Admin: 01/25/22 07:42 Dose: 1 puff Documented By: TYRON Hydromorphone HCl (Hydromorphone Hcl 0.5 Mg/0.5 Ml Syringe) 0.75 mg IVPUSH Q4H PRN; Protocol PRN Reason: Pain, Severe (Pain Scale 7-10) Last Admin: 01/24/22 04:01 Dose: 0.75 mg Documented By: ERNST Metronidazole (Flagyl) 500 mg in 100 mls @ 100 mls/hr IV Q8H [facility] Last Admin: 01/25/22 08:20 Dose: 100 mls/hr Documented By: KALI Cefepime HCl 2 gm/ Sodium (Chloride) 50 mls @ 100 mls/hr IV Q24H [facility] Last Infusion: 01/24/22 16:37 Dose: 0 mls/hr Documented By: SAMY Multivitamins 10 ml/ Trace Metals 1 ml/ Amino Acids/Electrolytes/Dextrose 2,011 mls @ 90 mls/hr IV DAILY@1800 [facility] Stop: 01/25/22 16:21 Last Admin: 01/24/22 19:00 Dose: 90 mls/hr Documented By: SAMY Insulin Glargine (Insulin Glargine,Hum.Rec.Anlog 100 Unit/Ml 10 Ml Vial) 20 unit SUBCUT DAILY [facility] Insulin Human Lispro (Insulin Lispro 100 Unit/Ml 3 Ml Vial) 0 unit SUBCUT QIDACHS [facility]; Protocol Last Admin: 01/25/22 08:19 Dose: 10 unit Documented By: KALI Levothyroxine Sodium (Levothyroxine Sodium 75 Mcg Tablet) 75 mcg PO DAILY@0600 [facility] Last Admin: 01/25/22 05:34 Dose: Not Given Documented By: MISA Non-Admin Reason: NPO Mirabegron (Mirabegron 25 Mg Tab.Er.24h) 25 mg PO DAILY [facility] Last Admin: 01/25/22 09:16 Dose: 25 mg Documented By: KALI Omeprazole (Omeprazole 20 Mg Capsule.Dr) 20 mg PO DAILY@0630 [facility] Last Admin: 01/19/22 05:20 Dose: 20 mg Documented By: KENNEDY Ondansetron HCl (Ondansetron Hcl 4 Mg/2 Ml Vial) 4 mg IVPUSH Q8H PRN PRN Reason: Nausea and Vomiting Last Admin: 01/24/22 04:01 Dose: 4 mg Documented By: ERNST Sodium Chloride (0.9 % Sodium Chloride Flush 3 Ml Syringe) 3 ml IVFLUSH QSHIFT [facility] Last Admin: 01/25/22 08:22 Dose: 3 ml Documented By: KALI Labs CBC & Chem 7: 01/22/22 09:02 01/25/22 06:46 Labs: Laboratory Results - last 24 hr 01/24/22 01/24/22 01/24/22 09:20 10:51 15:53 Anion Gap 15 Estim Creat Clear Calc 62.5 Estimated GFR > 60 POC Glucose 352 H* 313 H Random Glucose 427 H* Calcium 7.3 L D Phosphorus 2.3 L Magnesium 2.1 Albumin 2.6 L 01/24/22 01/25/22 01/25/22 20:31 06:46 07:16 Anion Gap 14 Estim Creat Clear Calc 64.9 Estimated GFR > 60 POC Glucose 254 H 371 H* Random Glucose 400 H* Calcium 7.6 L Phosphorus Magnesium Albumin Procedures Date of Service Date of Service: 01/25/22 Progress Note: A&P Assessment and plan (1) Ileus: Status: Acute Assessment and Plan: ileus from post ERCP pancreatitis much improved with NGT NGT output still high KUB shows air in stool in colon/rectum Will clamp NG tube with medications today, ice chips started for comfort Await return of bowel function. Time Spent With Patient Time: Total time spent is greater than 50% in coordination of care (as documented) at patient's floor/unit and/or counseling patient: Quality Stroke Does the patient have a stroke diagnosis?: No VTE Prior VTE?: No VTE Risk Level:: Medical - moderate - high VTE Device Contraindication: Treatment Not Indicated VTE Drug Contraindication: N/A - Med Ordered
[2022-01-25] MEDS: Enoxaparin Sodium 30 MG/0.3 ML SYRINGE SUBCUT (10:50)
[2022-01-25 11:17] LABS: Glucose, Whole Blood 332 mg/dL (60-115)
[2022-01-25] MEDS: cefEPime HCl 2 GM in 0.9 % Sodium Chloride 50 ML IV (14:27)
[2022-01-25 17:12] LABS: Glucose, Whole Blood 278 mg/dL (60-115)
[2022-01-25 21:11] LABS: Glucose, Whole Blood 244 mg/dL (60-115)
[2022-01-26] VITALS (12 sets, daily range): BP systolic 127–160; BP diastolic 70–94; PULSE 87–103; RESP 16–20; TEMP 36.2–37.1; O2SAT 93–99
[2022-01-26] MEDS: HYDROmorphone HCl 0.5 MG/0.5 ML SYRINGE 0.75 MG IVPUSH ×2 (02:20→22:42)
--- NOTE | 2022-01-26 04:37 | PC.NURSE ---
Patient medicated for back pain. Denies n/v or abdominal pain. NGT draining brown liquid and patient is taking ice chips. Frequent burping. Complained of chest tightness during breathing treatment which resolved within minutes.
[2022-01-26 08:16] LABS: Anion Gap 16 (12-20); Blood Urea Nitrogen 24 mg/dL (9-16); Calcium 7.7 mg/dL (8.4-10.2); Carbon Dioxide 29 mmol/L (22-29); Chloride 97 mmol/L (96-108); Creatinine Clr Calc Pharmacy 68.3; Estimated Glomerular Filt Rate > 60; Glucose Random 368 mg/dL (60-115); Sodium 138 mmol/L (135-145)
[2022-01-26 08:26] LABS: Glucose, Whole Blood 333 mg/dL (60-115)
[2022-01-26] MEDS: Insulin Glargine,Hum.rec.anlog 100 UNIT/ML 10 ML VIAL 20 UNIT SUBCUT (08:50)
[2022-01-26] MEDS: Insulin Lispro 100 UNIT/ML 3 ML VIAL SUBCUT ×7 (08:50→20:57)
[2022-01-26] MEDS: Mirabegron 25 MG TAB.ER.24H PO (08:51)
[2022-01-26] MEDS: 0.9 % Sodium Chloride Flush 3 ML SYRINGE IVFLUSH ×3 (08:53→20:58)
[2022-01-26] MEDS: metroNIDAZOLE/NS 500 MG/100 ML PIGGYBACK 100 MG IV ×3 (08:53→22:44)
--- NOTE | 2022-01-26 08:55 | PM.PNGS ---
Subjective Subjective Date of Service: 01/26/22 Interval history: continued high output of bilious fluid from nasogastric tube Physical Exam Vital Signs: Vital Signs: Last Vital Signs Temp 97.7 F 01/26/22 07:18 Pulse 97 01/26/22 07:18 Resp 17 01/26/22 07:18 BP 160/84 H 01/26/22 07:18 Pulse Ox 98 01/26/22 07:18 O2 Del Method 01/26/22 07:18 O2 Flow Rate 5 01/26/22 07:18 BMI result Body Mass Index 37.8 Const: Other: Awake, alert, in no acute distress HEENT: Other: NG tube in place, functioning well Resp: Other: Breathing comfortably GI: Other: Obese, distended, nontender palpation. No definite tympany to percussion. NG tube still with high output of bilious/feculent fluid Skin: Other: Warm and dry Objective Data Active Medications Acetaminophen (Acetaminophen Supp 650 Mg Supp.Rect) 650 mg [place] Q6H PRN PRN Reason: Fever Albuterol/Ipratropium (Albuterol/Iprat 2.5/0.5mg 3 Ml Ampul.Neb) 3 ml INHALE RQ6H WHILE AWAKE [facility] Last Admin: 01/25/22 20:28 Dose: 3 ml Documented By: FADY Albuterol/Ipratropium (Albuterol/Iprat 2.5/0.5mg 3 Ml Ampul.Neb) 3 ml INHALE RQ4H PRN PRN Reason: Shortness of Breath Last Admin: 01/21/22 15:53 Dose: 3 ml Documented By: MK Enoxaparin Sodium (Enoxaparin Sodium 30 Mg/0.3 Ml Syringe) 30 mg SUBCUT Q24H [facility] Last Admin: 01/25/22 10:50 Dose: 30 mg Documented By: KALI Fluticasone/Vilanterol (Fluticasone/Vilanterol 200/25 Blst.W.Dev) 1 puff INHALE RDAILY [facility] Last Admin: 01/25/22 07:42 Dose: 1 puff Documented By: KENZIERICEleno Hydromorphone HCl (Hydromorphone Hcl 0.5 Mg/0.5 Ml Syringe) 0.75 mg IVPUSH Q4H PRN; Protocol PRN Reason: Pain, Severe (Pain Scale 7-10) Last Admin: 01/26/22 02:20 Dose: 0.75 mg Documented By: CAILIN Metronidazole (Flagyl) 500 mg in 100 mls @ 100 mls/hr IV Q8H [facility] Last Infusion: 01/26/22 02:27 Dose: 0 mls/hr Documented By: CAILIN Cefepime HCl 2 gm/ Sodium (Chloride) 50 mls @ 100 mls/hr IV Q24H [facility] Last Infusion: 01/25/22 15:06 Dose: 0 mls/hr Documented By: KALI Multivitamins 10 ml/ Trace Metals 1 ml/ Amino Acids/Electrolytes/Dextrose 2,011 mls @ 90 mls/hr IV DAILY@1800 [facility] Stop: 01/26/22 16:21 Last Admin: 01/25/22 17:48 Dose: 90 mls/hr Documented By: CANDELARIA Insulin Glargine (Insulin Glargine,Hum.Rec.Anlog 100 Unit/Ml 10 Ml Vial) 20 unit SUBCUT DAILY [facility] Insulin Human Lispro (Insulin Lispro 100 Unit/Ml 3 Ml Vial) 0 unit SUBCUT QIDACHS [facility]; Protocol Last Admin: 01/25/22 21:22 Dose: 6 unit Documented By: RENALDO Levothyroxine Sodium (Levothyroxine Sodium 75 Mcg Tablet) 75 mcg PO DAILY@0600 [facility] Last Admin: 01/26/22 06:02 Dose: Not Given Documented By: CAILIN Non-Admin Reason: Patient Refused Mirabegron (Mirabegron 25 Mg Tab.Er.24h) 25 mg PO DAILY [facility] Last Admin: 01/25/22 09:16 Dose: 25 mg Documented By: KALI Omeprazole (Omeprazole 20 Mg Capsule.Dr) 20 mg PO DAILY@0630 [facility] Last Admin: 01/19/22 05:20 Dose: 20 mg Documented By: KENNEDY Ondansetron HCl (Ondansetron Hcl 4 Mg/2 Ml Vial) 4 mg IVPUSH Q8H PRN PRN Reason: Nausea and Vomiting Last Admin: 01/24/22 04:01 Dose: 4 mg Documented By: ERNST Sodium Chloride (0.9 % Sodium Chloride Flush 3 Ml Syringe) 3 ml IVFLUSH QSHIFT [facility] Last Admin: 01/25/22 23:49 Dose: 3 ml Documented By: CAILIN Labs CBC & Chem 7: 01/22/22 09:02 01/26/22 06:38 Labs: Laboratory Results - last 24 hr 01/25/22 01/25/22 01/25/22 11:13 17:07 21:05 Anion Gap Estim Creat Clear Calc Estimated GFR POC Glucose 332 H 278 H 244 H Random Glucose Calcium 01/26/22 01/26/22 06:38 08:22 Anion Gap 16 Estim Creat Clear Calc 68.3 Estimated GFR > 60 POC Glucose 333 H Random Glucose 368 H* Calcium 7.7 L Procedures Date of Service Date of Service: 01/26/22 Progress Note: A&P Assessment and plan (1) Ileus: Status: Acute Assessment and Plan: ileus from post ERCP pancreatitis much improved with NGT NGT output still high, 1400 last 24 hours , no BM previous KUB shows air in stool in colon/rectum will need continued NG tube decompression. Await return of bowel function. Time Spent With Patient Time: Total time spent is greater than 50% in coordination of care (as documented) at patient's floor/unit and/or counseling patient: Quality Stroke Does the patient have a stroke diagnosis?: No VTE Prior VTE?: No VTE Risk Level:: Medical - moderate - high VTE Device Contraindication: Treatment Not Indicated VTE Drug Contraindication: N/A - Med Ordered
--- NOTE | 2022-01-26 11:09 | P.PNIM_ITS ---
Subjective Subjective Date of Service: 01/26/22 Interval History: seen in f/u for post ERCP pancreatis, DONNIE, hypocalcemia, suspected aspiration pneumonia and overall not doing well. Interval history: overall continues to improve but slowly, NGT still having high output, no abdominal pain, sugars still very high Review of Systems no n/v abd discomfort no fever, Physical Exam Vital Signs: Vital Signs: Last Vital Signs Temp 97.7 F 01/26/22 07:18 Pulse 97 01/26/22 07:18 Resp 17 01/26/22 07:18 BP 160/84 H 01/26/22 07:18 Pulse Ox 98 01/26/22 07:18 O2 Del Method 01/26/22 07:18 O2 Flow Rate 5 01/26/22 07:18 BMI result Body Mass Index 37.8 Const: Other: General: AO X 2, no acute distress NGT with bilius drainage Resp: rhonchi, diminish breath sounds CVS: S1,S2,RRR, no leg edema GI: dimimihsed, BS, NT, no distention Skin: No rash Neuro: motor grossly intact Psych:depressed affect Objective Data Active Medications Acetaminophen (Acetaminophen Supp 650 Mg Supp.Rect) 650 mg [place] Q6H PRN PRN Reason: Fever Albuterol/Ipratropium (Albuterol/Iprat 2.5/0.5mg 3 Ml Ampul.Neb) 3 ml INHALE RQ6H WHILE AWAKE [facility] Last Admin: 01/25/22 20:28 Dose: 3 ml Documented By: FADY Albuterol/Ipratropium (Albuterol/Iprat 2.5/0.5mg 3 Ml Ampul.Neb) 3 ml INHALE RQ4H PRN PRN Reason: Shortness of Breath Last Admin: 01/21/22 15:53 Dose: 3 ml Documented By: MK Enoxaparin Sodium (Enoxaparin Sodium 30 Mg/0.3 Ml Syringe) 30 mg SUBCUT Q24H [facility] Last Admin: 01/25/22 10:50 Dose: 30 mg Documented By: KALI Fluticasone/Vilanterol (Fluticasone/Vilanterol 200/25 Blst.W.Dev) 1 puff INHALE RDAILY [facility] Last Admin: 01/25/22 07:42 Dose: 1 puff Documented By: TYRON Hydromorphone HCl (Hydromorphone Hcl 0.5 Mg/0.5 Ml Syringe) 0.75 mg IVPUSH Q4H PRN; Protocol PRN Reason: Pain, Severe (Pain Scale 7-10) Last Admin: 01/26/22 02:20 Dose: 0.75 mg Documented By: CAILIN Metronidazole (Flagyl) 500 mg in 100 mls @ 100 mls/hr IV Q8H [facility] Last Infusion: 01/26/22 10:42 Dose: 0 mls/hr Documented By: JP Cefepime HCl 2 gm/ Sodium (Chloride) 50 mls @ 100 mls/hr IV Q24H [facility] Last Infusion: 01/25/22 15:06 Dose: 0 mls/hr Documented By: KALI Multivitamins 10 ml/ Trace Metals 1 ml/ Amino Acids/Electrolytes/Dextrose 2,011 mls @ 90 mls/hr IV DAILY@1800 [facility] Stop: 01/26/22 16:21 Last Admin: 01/25/22 17:48 Dose: 90 mls/hr Documented By: CANDELARIA Insulin Glargine (Insulin Glargine,Hum.Rec.Anlog 100 Unit/Ml 10 Ml Vial) 20 unit SUBCUT DAILY [facility] Last Admin: 01/26/22 08:50 Dose: 20 unit Documented By: JP Insulin Human Lispro (Insulin Lispro 100 Unit/Ml 3 Ml Vial) 0 unit SUBCUT QIDACHS [facility]; Protocol Last Admin: 01/26/22 08:50 Dose: 12 unit Documented By: JP Levothyroxine Sodium (Levothyroxine Sodium 75 Mcg Tablet) 75 mcg PO DAILY@0600 [facility] Last Admin: 01/26/22 06:02 Dose: Not Given Documented By: CAILIN Non-Admin Reason: Patient Refused Mirabegron (Mirabegron 25 Mg Tab.Er.24h) 25 mg PO DAILY [facility] Last Admin: 01/26/22 08:51 Dose: 25 mg Documented By: JP Omeprazole (Omeprazole 20 Mg Capsule.Dr) 20 mg PO DAILY@0630 [facility] Last Admin: 01/19/22 05:20 Dose: 20 mg Documented By: HO.RAINAS Ondansetron HCl (Ondansetron Hcl 4 Mg/2 Ml Vial) 4 mg IVPUSH Q8H PRN PRN Reason: Nausea and Vomiting Last Admin: 01/24/22 04:01 Dose: 4 mg Documented By: ERNST Sodium Chloride (0.9 % Sodium Chloride Flush 3 Ml Syringe) 3 ml IVFLUSH QSHIFT [facility] Last Admin: 01/26/22 08:53 Dose: 3 ml Documented By: JP Labs CBC & Chem 7: 01/22/22 09:02 01/26/22 06:38 Labs: Laboratory Results - last 24 hr 01/25/22 01/25/22 01/25/22 11:13 17:07 21:05 Anion Gap Estim Creat Clear Calc Estimated GFR POC Glucose 332 H 278 H 244 H Random Glucose Calcium 01/26/22 01/26/22 06:38 08:22 Anion Gap 16 Estim Creat Clear Calc 68.3 Estimated GFR > 60 POC Glucose 333 H Random Glucose 368 H* Calcium 7.7 L Assessment and Plan (1) Respiratory distress: Status: Acute (2) Nausea & vomiting: Status: Acute (3) Post-ERCP acute pancreatitis: Status: Acute (4) Common bile duct (CBD) obstruction: Status: Acute (5) Obesity (BMI 30-39.9): Status: Acute (6) Elevated LFTs: Status: Acute (7) Acute hypoxemic respiratory failure: Status: Acute (8) Atelectasis: Status: Acute (9) Hypoventilation: Status: Acute Plan 76 year old female with history of mild persistent asthma, hypothyroidism, gerd, hiatal hernia, bilateral calcific tendonitis, and urge incontinence admitted for choledocholithiais and now with post ECRCP pancreatitis, DONNIE and aspiration pneumonia. 1- Cholechodocholithiasis, s/p ERCP on 01/17 complicated by post op pancreatitis resolved -ultimately will need CCY once fully recovered from acute illness 2. Acute post ECRCP pancreaitis--most recent CT reviewed with Dr. Quinn and not believed to be hemorragic pancraitis -Lipase has trended naun from 1356 to now 134 -Post ERCP ileus -continue NPO for now for ileus -continue TPN -continue nGT 3. HypOcalcemia d/t saponificatiion from pancreatitis, calcium is being replaced and shows no symptoms of hypocalcemia at this, will add additional calcium and phos to TPN ultimately could have rebound hypercalcemia, so closely monitor, nephrology helping as well..Overall improving calcium up to 7.7 4. Aspiration pneumonia--Cefepime D6/7, WBC trending down, there is conflicting report about pen allergy status (pt states no, family says yes and doens't want zosyn) 5. acute hypoxemic respiratory failure possible mulifactorial :atelactatsis , morbid obesity, hypoventilation,anxiety , also hx persistent asthma and pneumonia as above -has been follow by pulmonology, seen by ICU and no indication for ICU care, incentive spirometry, wean off O2 as tolerated,echo finding reviewed, no evidence of heart failure 6-Acute UTI--negative culture, should be adequately covered with above Abx 3-Hypothyroidism- stable -Continue levothyroxine 4-GERD- stable -EGD 07/01 with strictures with balloon dilitation 6. DONNIE --likely from shift in fluid, from pancreatitis, pre renal state--resolved, 7. Diabetes with Hyperglycemia--Increase Lantus to 30, adjust parameters of SSI--> adjust for hyperglycemia 8. Ileus still with signficant output from NGT.. surgery following DVT prophylaxis- lovenox ? Need for inpatient:?Patient is nearly cricitically ill with post ERCP pancreatitis, NPO, hypocalcemia, severe ileus PNA on IV Abx , TPN.. family is been updated along the way, Quality Stroke Does the patient have a stroke diagnosis?: No VTE Prior VTE?: No VTE Risk Level:: Medical - moderate - high VTE Device Contraindication: Treatment Not Indicated VTE Drug Contraindication: N/A - Med Ordered
[2022-01-26] MEDS: Albuterol/Iprat 2.5/0.5MG 3 ML AMPUL.NEB INHALE ×3 (11:10→20:25)
[2022-01-26 11:54] LABS: Glucose, Whole Blood 316 mg/dL (60-115)
[2022-01-26] MEDS: Enoxaparin Sodium 30 MG/0.3 ML SYRINGE SUBCUT (12:11)
[2022-01-26] MEDS: Insulin Glargine,Hum.rec.anlog 100 UNIT/ML 10 ML VIAL 10 UNIT SUBCUT (12:12)
[2022-01-26] MEDS: cefEPime HCl 2 GM in 0.9 % Sodium Chloride 50 ML IV (14:53)
[2022-01-26 16:33] LABS: Glucose, Whole Blood 253 mg/dL (60-115)
[2022-01-26 20:15] LABS: Glucose, Whole Blood 206 mg/dL (60-115)
[2022-01-27] VITALS (12 sets, daily range): BP systolic 117–168; BP diastolic 57–78; PULSE 77–99; RESP 18–23; TEMP 36.1–37.7; O2SAT 91–97
[2022-01-27] MEDS: Albuterol/Iprat 2.5/0.5MG 3 ML AMPUL.NEB INHALE ×4 (00:20→20:10)
[2022-01-27] MEDS: HYDROmorphone HCl 0.5 MG/0.5 ML SYRINGE 0.75 MG IVPUSH ×2 (05:27→20:46)
[2022-01-27 06:57] LABS: Anion Gap 19 (12-20); Blood Urea Nitrogen 24 mg/dL (9-16); Calcium 7.6 mg/dL (8.4-10.2); Carbon Dioxide 25 mmol/L (22-29); Chloride 98 mmol/L (96-108); Creatinine Clr Calc Pharmacy 79.1; Estimated Glomerular Filt Rate > 60; Glucose Random 283 mg/dL (60-115); Potassium 4.5 mmol/L (3.3-5.1); Sodium 137 mmol/L (135-145)
[2022-01-27] MEDS: 0.9 % Sodium Chloride Flush 3 ML SYRINGE IVFLUSH ×3 (07:39→20:47)
[2022-01-27] MEDS: Mirabegron 25 MG TAB.ER.24H PO (07:39)
[2022-01-27] MEDS: metroNIDAZOLE/NS 500 MG/100 ML PIGGYBACK 100 MG IV ×2 (07:39→16:50)
[2022-01-27] MEDS: Insulin Lispro 100 UNIT/ML 3 ML VIAL SUBCUT ×8 (07:40→20:46)
[2022-01-27] MEDS: Insulin Glargine,Hum.rec.anlog 100 UNIT/ML 10 ML VIAL 30 UNIT SUBCUT (07:40)
[2022-01-27 07:44] LABS: Glucose, Whole Blood 296 mg/dL (60-115)
--- NOTE | 2022-01-27 10:08 | P.PNGS_ITS ---
Subjective Subjective Date of Service: 01/27/22 Interval history: no new events NGT output still high over the weekend denies flatus no abdl pain Physical Exam Vital Signs: Vital Signs: Last Vital Signs Temp 97.8 F 01/27/22 07:24 Pulse 91 01/27/22 07:52 Resp 18 01/27/22 07:52 BP 144/65 H 01/27/22 07:24 Pulse Ox 95 01/27/22 07:24 O2 Del Method 01/27/22 07:24 O2 Flow Rate 3 01/27/22 07:24 BMI result Body Mass Index 37.8 Const: Other: obese General: no acute distress Resp: Effort & Inspection: normal respiratory effort Cardio: Rate: regular rate GI: Other: soft, obese Palpation (GI): no guarding and not rigid Objective Data Active Medications Acetaminophen (Acetaminophen Supp 650 Mg Supp.Rect) [address] Q6H PRN PRN Reason: Fever Albuterol/Ipratropium (Albuterol/Iprat 2.5/0.5mg 3 Ml Ampul.Neb) 3 ml INHALE RQ6H WHILE AWAKE [facility] Last Admin: 01/27/22 07:51 Dose: 3 ml Documented By: MK Albuterol/Ipratropium (Albuterol/Iprat 2.5/0.5mg 3 Ml Ampul.Neb) 3 ml INHALE RQ4H PRN PRN Reason: Shortness of Breath Last Admin: 01/27/22 00:20 Dose: 3 ml Documented By: DANIELLE Enoxaparin Sodium (Enoxaparin Sodium 30 Mg/0.3 Ml Syringe) 30 mg SUBCUT Q24H [facility] Last Admin: 01/26/22 12:11 Dose: 30 mg Documented By: SOLISMERNA Fluticasone/Vilanterol (Fluticasone/Vilanterol 200/25 Blst.W.Dev) 1 puff INHALE RDAILY [facility] Last Admin: 01/27/22 07:53 Dose: Not Given Documented By: MK Non-Admin Reason: Med Not Available Hydromorphone HCl (Hydromorphone Hcl 0.5 Mg/0.5 Ml Syringe) 0.75 mg IVPUSH Q4H PRN; Protocol PRN Reason: Pain, Severe (Pain Scale 7-10) Last Admin: 01/27/22 05:27 Dose: 0.75 mg Documented By: ERNST Metronidazole (Flagyl) 500 mg in 100 mls @ 100 mls/hr IV Q8H [facility] Last Admin: 01/27/22 07:39 Dose: 100 mls/hr Documented By: SAMY Cefepime HCl 2 gm/ Sodium (Chloride) 50 mls @ 100 mls/hr IV Q24H [facility] Last Infusion: 01/26/22 15:33 Dose: 0 mls/hr Documented By: JP Multivitamins 10 ml/ Trace Metals 1 ml/ Amino Acids/Electrolytes/Dextrose 2,011 mls @ 90 mls/hr IV DAILY@1800 [facility] Stop: 01/27/22 16:21 Last Admin: 01/26/22 18:14 Dose: 90 mls/hr Documented By: KALI Insulin Glargine (Insulin Glargine,Hum.Rec.Anlog 100 Unit/Ml 10 Ml Vial) 30 unit SUBCUT DAILY [facility] Last Admin: 01/27/22 07:40 Dose: 30 unit Documented By: SAMY Insulin Human Lispro (Insulin Lispro 100 Unit/Ml 3 Ml Vial) 0 unit SUBCUT QIDACHS [facility]; Protocol Last Admin: 01/27/22 07:40 Dose: 8 unit Documented By: SAMY Insulin Human Lispro (Insulin Lispro 100 Unit/Ml 3 Ml Vial) 5 unit SUBCUT QID ACHS [facility] Last Admin: 01/27/22 07:40 Dose: 5 unit Documented By: SAMY Levothyroxine Sodium (Levothyroxine Sodium 75 Mcg Tablet) 75 mcg PO DAILY@0600 [facility] Last Admin: 01/27/22 05:27 Dose: Not Given Documented By: ERNST Non-Admin Reason: NPO Mirabegron (Mirabegron 25 Mg Tab.Er.24h) 25 mg PO DAILY [facility] Last Admin: 01/27/22 07:39 Dose: 25 mg Documented By: SAMY Omeprazole (Omeprazole 20 Mg Capsule.Dr) 20 mg PO DAILY@0630 [facility] Last Admin: 01/19/22 05:20 Dose: 20 mg Documented By: KENNEDY Ondansetron HCl (Ondansetron Hcl 4 Mg/2 Ml Vial) 4 mg IVPUSH Q8H PRN PRN Reason: Nausea and Vomiting Last Admin: 01/24/22 04:01 Dose: 4 mg Documented By: ERNST Sodium Chloride (0.9 % Sodium Chloride Flush 3 Ml Syringe) [facility] Last Admin: 01/27/22 07:39 Dose: 3 ml Documented By: SAMY Labs CBC & Chem 7: 01/22/22 09:02 01/27/22 05:54 Labs: Laboratory Results - last 24 hr 01/26/22 01/26/22 01/26/22 11:17 16:31 18:45 Anion Gap Estim Creat Clear Calc Estimated GFR POC Glucose 316 H 253 H 206 H Random Glucose Calcium 01/27/22 01/27/22 05:54 07:23 Anion Gap 19 Estim Creat Clear Calc 79.1 Estimated GFR > 60 POC Glucose 296 H Random Glucose 283 H Calcium 7.6 L Procedures Date of Service Date of Service: 01/27/22 Progress Note: A&P Assessment and plan (1) Post-ERCP acute pancreatitis: Status: Acute Assessment and Plan: with ileus trial of clamping/unclamping today abd soft OOB to chair on TPN will follow closely Time Spent With Patient Time: Total time spent is greater than 50% in coordination of care (as documented) at patient's floor/unit and/or counseling patient: Quality Stroke Does the patient have a stroke diagnosis?: No VTE Prior VTE?: No VTE Risk Level:: Medical - moderate - high VTE Device Contraindication: Treatment Not Indicated VTE Drug Contraindication: N/A - Med Ordered
[2022-01-27] MEDS: Enoxaparin Sodium 30 MG/0.3 ML SYRINGE SUBCUT (10:13)
--- NOTE | 2022-01-27 10:22 | P.PNIM_ITS ---
Subjective Subjective Date of Service: 01/27/22 Interval History: seen in f/u for post ERCP pancreatis, DONNIE, hypocalcemia, suspected aspiration pneumonia and overall not doing well. Interval history: complaint of thirst, NGT clamped d/t low output Review of Systems no n/v abd discomfort no fever, Physical Exam Vital Signs: Vital Signs: Last Vital Signs Temp 97.8 F 01/27/22 07:24 Pulse 91 01/27/22 07:52 Resp 18 01/27/22 07:52 BP 144/65 H 01/27/22 07:24 Pulse Ox 95 01/27/22 07:24 O2 Del Method 01/27/22 07:24 O2 Flow Rate 3 01/27/22 07:24 BMI result Body Mass Index 37.8 Const: Other: General: AO X 2, no acute distress NGT with bilius drainage Resp: rhonchi, diminish breath sounds CVS: S1,S2,RRR, no leg edema GI: dimimihsed, BS, NT, no distention Skin: No rash Neuro: motor grossly intact Psych:depressed affect Objective Data Active Medications Acetaminophen (Acetaminophen Supp 650 Mg Supp.Rect) 650 mg [place] Q6H PRN PRN Reason: Fever Albuterol/Ipratropium (Albuterol/Iprat 2.5/0.5mg 3 Ml Ampul.Neb) 3 ml INHALE RQ6H WHILE AWAKE [facility] Last Admin: 01/27/22 07:51 Dose: 3 ml Documented By: MK Albuterol/Ipratropium (Albuterol/Iprat 2.5/0.5mg 3 Ml Ampul.Neb) 3 ml INHALE RQ4H PRN PRN Reason: Shortness of Breath Last Admin: 01/27/22 00:20 Dose: 3 ml Documented By: DANIELLE Enoxaparin Sodium (Enoxaparin Sodium 30 Mg/0.3 Ml Syringe) 30 mg SUBCUT Q24H [facility] Last Admin: 01/27/22 10:13 Dose: 30 mg Documented By: SAMY Fluticasone/Vilanterol (Fluticasone/Vilanterol 200/25 Blst.W.Dev) 1 puff INHALE RDAILY [facility] Last Admin: 01/27/22 07:53 Dose: Not Given Documented By: MK Non-Admin Reason: Med Not Available Hydromorphone HCl (Hydromorphone Hcl 0.5 Mg/0.5 Ml Syringe) 0.75 mg IVPUSH Q4H PRN; Protocol PRN Reason: Pain, Severe (Pain Scale 7-10) Last Admin: 01/27/22 05:27 Dose: 0.75 mg Documented By: ERNST Metronidazole (Flagyl) 500 mg in 100 mls @ 100 mls/hr IV Q8H [facility] Last Admin: 01/27/22 07:39 Dose: 100 mls/hr Documented By: SAMY Cefepime HCl 2 gm/ Sodium (Chloride) 50 mls @ 100 mls/hr IV Q24H [facility] Last Infusion: 01/26/22 15:33 Dose: 0 mls/hr Documented By: JP Multivitamins 10 ml/ Trace Metals 1 ml/ Amino Acids/Electrolytes/Dextrose 2,011 mls @ 90 mls/hr IV DAILY@1800 [facility] Stop: 01/27/22 16:21 Last Admin: 01/26/22 18:14 Dose: 90 mls/hr Documented By: KALI Insulin Glargine (Insulin Glargine,Hum.Rec.Anlog 100 Unit/Ml 10 Ml Vial) 30 unit SUBCUT DAILY [facility] Last Admin: 01/27/22 07:40 Dose: 30 unit Documented By: SAMY Insulin Human Lispro (Insulin Lispro 100 Unit/Ml 3 Ml Vial) 0 unit SUBCUT QIDACHS [facility]; Protocol Last Admin: 01/27/22 07:40 Dose: 8 unit Documented By: SAMY Insulin Human Lispro (Insulin Lispro 100 Unit/Ml 3 Ml Vial) 5 unit SUBCUT QIDACHS [facility] Last Admin: 01/27/22 07:40 Dose: 5 unit Documented By: SAMY Levothyroxine Sodium (Levothyroxine Sodium 75 Mcg Tablet) 75 mcg PO DAILY@0600 [facility] Last Admin: 01/27/22 05:27 Dose: Not Given Documented By: ERNST Non-Admin Reason: NPO Mirabegron (Mirabegron 25 Mg Tab.Er.24h) 25 mg PO DAILY [facility] Last Admin: 01/27/22 07:39 Dose: 25 mg Documented By: SAMY Omeprazole (Omeprazole 20 Mg Capsule.) 20 mg PO DAILY@0630 [facility] Last Admin: 01/19/22 05:20 Dose: 20 mg Documented By: KENNEDY Ondansetron HCl (Ondansetron Hcl 4 Mg/2 Ml Vial) 4 mg IVPUSH Q8H PRN PRN Reason: Nausea and Vomiting Last Admin: 01/24/22 04:01 Dose: 4 mg Documented By: ERNST Sodium Chloride (0.9 % Sodium Chloride Flush 3 Ml Syringe) 3 ml IVFLUSH QSHIFT [facility] Last Admin: 01/27/22 07:39 Dose: 3 ml Documented By: SAMY Labs CBC & Chem 7: 01/22/22 09:02 01/27/22 05:54 Labs: Laboratory Results - last 24 hr 01/26/22 01/26/22 01/26/22 11:17 16:31 18:45 Anion Gap Estim Creat Clear Calc Estimated GFR POC Glucose 316 H 253 H 206 H Random Glucose Calcium 01/27/22 01/27/22 05:54 07:23 Anion Gap 19 Estim Creat Clear Calc 79.1 Estimated GFR > 60 POC Glucose 296 H Random Glucose 283 H Calcium 7.6 L Assessment and Plan (1) Respiratory distress: Status: Acute (2) Nausea & vomiting: Status: Acute (3) Post-ERCP acute pancreatitis: Status: Acute (4) Common bile duct (CBD) obstruction: Status: Acute (5) Obesity (BMI 30-39.9): Status: Acute (6) Elevated LFTs: Status: Acute (7) Acute hypoxemic respiratory failure: Status: Acute (8) Atelectasis: Status: Acute (9) Hypoventilation: Status: Acute Plan 76 year old female with history of mild persistent asthma, hypothyroidism, gerd, hiatal hernia, bilateral calcific tendonitis, and urge incontinence admitted for choledocholithiais and now with post ECRCP pancreatitis, DONNIE and aspiration pneumonia. 1- Cholechodocholithiasis, s/p ERCP on 01/17 complicated by post op pancreatitis resolved -ultimately will need CCY once fully recovered from acute illness 2. Acute post ECRCP pancreaitis--most recent CT reviewed with Dr. Quinn and not believed to be hemorragic pancraitis -Lipase has trended naun from 1356 to now 134 -Post ERCP ileus -continue NPO for now for ileus -continue TPN -continue nGT 3. HypOcalcemia d/t saponificatiion from pancreatitis, calcium is being replaced and shows no symptoms of hypocalcemia at this, will add additional calcium and phos to TPN ultimately could have rebound hypercalcemia, so closely monitor, nephrology helping as well..Overall improving calcium up to 7.7 4. Aspiration pneumonia--Cefepime D7/7, WBC trending down, there is conflicting report about pen allergy status (pt states no, family says yes and doens't want zosyn) 5. acute hypoxemic respiratory failure possible mulifactorial :atelactatsis , morbid obesity, hypoventilation,anxiety , also hx persistent asthma and pneumoni a as above -has been follow by pulmonology, seen by ICU and no indication for ICU care, incentive spirometry, wean off O2 as tolerated,echo finding reviewed, no evidence of heart failure 6-Acute UTI--negative culture, should be adequately covered with above Abx 3-Hypothyroidism- stable -Continue levothyroxine 4-GERD- stable -EGD 07/01 with strictures with balloon dilitation 6. DONNIE --likely from shift in fluid, from pancreatitis, pre renal state--resolved, 7. Diabetes with Hyperglycemia--Increase Lantus to 40 today, pre meal insulin 5 adjust parameters of SSI--> adjust for hyperglycemia 8. Ileus , NGT output down. NGT clamped.. surgery following DVT prophylaxis- lovenox ? Need for inpatient:?Patient is nearly cricitically ill with post ERCP pancreatitis, NPO, hypocalcemia, severe ileus PNA on IV Abx , TPN.. family is been updated along the way (spoke to daughter this morning) Quality Stroke Does the patient have a stroke diagnosis?: No VTE Prior VTE?: No VTE Risk Level:: Medical - moderate - high VTE Device Contraindication: Treatment Not Indicated VTE Drug Contraindication: N/A - Med Ordered
[2022-01-27] MEDS: Insulin Glargine,Hum.rec.anlog 100 UNIT/ML 10 ML VIAL 10 UNIT SUBCUT (10:37)
[2022-01-27 11:28] LABS: Albumin Level 2.5 g/dL (3.5-5.0); Phosphorus 3.8 mg/dL (2.7-4.5)
[2022-01-27 11:31] LABS: Glucose, Whole Blood 260 mg/dL (60-115)
--- NOTE | 2022-01-27 13:00 | MHC.CLN ---
F/U REVIEWED LABS DISCUSSED WITH PHARMACY PPN RECOMMEND CONTINUING D10AA4.25 AT 90ML PER HOUR PROVIDES 1102 KCALS, 92G PROTEIN (1.5G/KG BASED ON CMW) RECOMMEND START 9ML OF 20% LIPIDS TO PROVIDE AN ADDITIONAL 432KCALS (1534KCALS TOTAL; 25KCALS/KG) REPLETE LYTES NEEDED
--- NOTE | 2022-01-27 13:14 | MHC.CM.PN ---
PT is recommending STR. Patient is not yet medically cleared for dc (IV Cefepime/Aspiration PNA, IV Dilaudid, IV Flagyl, NPO/TPN, NGT. CM will follow.
--- NOTE | 2022-01-27 13:17 | PM.EVENT ---
Event Note Date of Service: 01/27/22 Event Note: I had clamped her NG tube at around 07:30 this morning. This was released and there was minimal output on suctioning She says she is passing flatus Abdomen remained soft I removed the NG tube Keep on ice chips for now Abdomen soft
[2022-01-27] MEDS: cefEPime HCl 2 GM in 0.9 % Sodium Chloride 50 ML IV (14:24)
[2022-01-27 15:41] LABS: Glucose, Whole Blood 183 mg/dL (60-115)
[2022-01-27] MEDS: Fat Emulsions 20% 250 ML 9 ML IVCONT (18:01)
[2022-01-27 19:59] LABS: Glucose, Whole Blood 163 mg/dL (60-115)
[2022-01-27 23:24] LABS: Glucose, Whole Blood 192 mg/dL (60-115)
[2022-01-28] VITALS (8 sets, daily range): BP systolic 122–140; BP diastolic 64–83; PULSE 77–91; RESP 18–20; TEMP 35.9–37.8; O2SAT 3–97
[2022-01-28] MEDS: metroNIDAZOLE/NS 500 MG/100 ML PIGGYBACK 100 MG IV ×2 (00:44→07:39)
[2022-01-28] MEDS: HYDROmorphone HCl 0.5 MG/0.5 ML SYRINGE 0.75 MG IVPUSH ×2 (04:23→18:37)
[2022-01-28] MEDS: Levothyroxine Sodium 75 MCG TABLET PO (05:40)
[2022-01-28 07:00] LABS: Anion Gap 16 (12-20); Blood Urea Nitrogen 23 mg/dL (9-16); Calcium 7.9 mg/dL (8.4-10.2); Carbon Dioxide 29 mmol/L (22-29); Chloride 94 mmol/L (96-108); Creatinine Clr Calc Pharmacy 76.7; Estimated Glomerular Filt Rate > 60; Glucose Random 281 mg/dL (60-115); Potassium 4.4 mmol/L (3.3-5.1); Sodium 135 mmol/L (135-145); Triglycerides 164 mg/dL
[2022-01-28 07:38] LABS: Glucose, Whole Blood 251 mg/dL (60-115)
[2022-01-28] MEDS: Mirabegron 25 MG TAB.ER.24H PO (07:38)
[2022-01-28] MEDS: Insulin Lispro 100 UNIT/ML 3 ML VIAL SUBCUT ×7 (07:38→20:49)
[2022-01-28] MEDS: Insulin Glargine,Hum.rec.anlog 100 UNIT/ML 10 ML VIAL 40 UNIT SUBCUT (07:39)
[2022-01-28] MEDS: 0.9 % Sodium Chloride Flush 3 ML SYRINGE IVFLUSH ×3 (07:40→20:50)
--- NOTE | 2022-01-28 08:39 | P.PNGS_ITS ---
Subjective Subjective Date of Service: 01/28/22 Interval history: denies abdominal pain NG tube removed yesterday no vomiting patient asking for food says she has been passing flatus Physical Exam Vital Signs: Vital Signs: Last Vital Signs Temp 97.1 F 01/28/22 07:51 Pulse 87 01/28/22 07:51 Resp 20 01/28/22 07:51 BP 122/79 01/28/22 07:51 Pulse Ox 94 01/28/22 07:51 O2 Del Method 01/28/22 07:51 O2 Flow Rate 3 01/28/22 07:51 BMI result Body Mass Index 37.8 Const: General: comfortable and no acute distress Resp: Effort & Inspection: normal respiratory effort Cardio: Rate: regular rate GI: Other: soft, nontender Objective Data Active Medications Acetaminophen (Acetaminophen Supp 650 Mg Supp.Rect) 650 mg [place] Q6H PRN PRN Reason: Fever Albuterol/Ipratropium (Albuterol/Iprat 2.5/0.5mg 3 Ml Ampul.Neb) 3 ml INHALE RQ 4H PRN PRN Reason: Shortness of Breath Last Admin: 01/27/22 20:10 Dose: 3 ml Documented By: DANIELLE Enoxaparin Sodium (Enoxaparin Sodium 30 Mg/0.3 Ml Syringe) 30 mg SUBCUT Q24H [facility] Last Admin: 01/27/22 10:13 Dose: 30 mg Documented By: SAMY Fluticasone/Vilanterol (Fluticasone/Vilanterol 200/25 Blst.W.Dev) 1 puff INHALE RDAILY [facility] Last Admin: 01/28/22 07:52 Dose: Not Given Documented By: TYRON Non-Admin Reason: Med Not Available Hydromorphone HCl (Hydromorphone Hcl 0.5 Mg/0.5 Ml Syringe) 0.75 mg IVPUSH Q4H PRN; Protocol PRN Reason: Pain, Severe (Pain Scale 7-10) Last Admin: 01/28/22 04:23 Dose: 0.75 mg Documented By: ERNST Metronidazole (Flagyl) 500 mg in 100 mls @ 100 mls/hr IV Q8H [facility] Last Admin: 01/28/22 07:39 Dose: 100 mls/hr Documented By: SAMY Cefepime HCl 2 gm/ Sodium (Chloride) 50 mls @ 100 mls/hr IV Q24H [facility] Last Infusion: 01/27/22 17:14 Dose: 0 mls/hr Documented By: SAMY Multivitamins 10 ml/ Trace Metals 1 ml/ Amino Acids/Electrolytes/Dextrose 2,011 mls @ 90 mls/hr IV DAILY@1800 [facility] Stop: 01/28/22 16:21 Last Infusion: 01/28/22 06:15 Dose: 0 mls/hr Documented By: ERNST Insulin Glargine (Insulin Glargine,Hum.Rec.Anlog 100 Unit/Ml 10 Ml Vial) 40 unit SUBCUT DAILY [facility] Last Admin: 01/28/22 07:39 Dose: 40 unit Documented By: SAMY Insulin Human Lispro (Insulin Lispro 100 Unit/Ml 3 Ml Vial) 0 unit SUBCUT QIDACHS [facility]; Protocol Last Admin: 01/28/22 07:38 Dose: 8 unit Documented By: SAMY Insulin Human Lispro (Insulin Lispro 100 Unit/Ml 3 Ml Vial) 5 unit SUBCUT QIDACHS [facility] Last Admin: 01/28/22 07:38 Dose: 5 unit Documented By: SAMY Levothyroxine Sodium (Levothyroxine Sodium 75 Mcg Tablet) 75 mcg PO DAILY@0600 [facility] Last Admin: 01/28/22 05:40 Dose: 75 mcg Documented By: ERNST Mirabegron (Mirabegron 25 Mg Tab.Er.24h) 25 mg PO DAILY [facility] Last Admin: 01/28/22 07:38 Dose: 25 mg Documented By: SAMY Omeprazole (Omeprazole 20 Mg Capsule.Dr) 20 mg PO DAILY@0630 [facility] Last Admin: 01/19/22 05:20 Dose: 20 mg Documented By: KENNEDY Ondansetron HCl (Ondansetron Hcl 4 Mg/2 Ml Vial) 4 mg IVPUSH Q8H PRN PRN Reason: Nausea and Vomiting Last Admin: 01/24/22 04:01 Dose: 4 mg Documented By: ERNST Sodium Chloride (0.9 % Sodium Chloride Flush 3 Ml Syringe) 3 ml IVFLUSH QSHIFT [facility] Last Admin: 01/28/22 07:40 Dose: 3 ml Documented By: SAMY Labs CBC & Chem 7: 01/22/22 09:02 01/28/22 05:58 Labs: Laboratory Results - last 24 hr 01/27/22 01/27/22 01/27/22 05:54 10:56 15:09 Anion Gap Estim Creat Clear Calc Estimated GFR POC Glucose 260 H 183 H Random Glucose Calcium Phosphorus 3.8 Magnesium 2.0 Albumin 2.5 L Triglycerides 01/27/22 01/27/22 01/28/22 19:17 23:20 05:58 Anion Gap 16 Estim Creat Clear Calc 76.7 Estimated GFR > 60 POC Glucose 163 H 192 H Random Glucose 281 H Calcium 7.9 L Phosphorus Magnesium Albumin Triglycerides 164 01/28/22 07:34 Anion Gap Estim Creat Clear Calc Estimated GFR POC Glucose 251 H Random Glucose Calcium Phosphorus Magnesium Albumin Triglycerides Procedures Date of Service Date of Service: 01/28/22 Progress Note: A&P Assessment and plan (1) Ileus: Status: Acute Assessment and Plan: she looks comfortable NG tube removed yesterday abdomen remained soft okay to start clear liquids today out of bed to chair increase level of activity Time Spent With Patient Time: Total time spent is greater than 50% in coordination of care (as documented) at patient's floor/unit and/or counseling patient: Quality Stroke Does the patient have a stroke diagnosis?: No VTE Prior VTE?: No VTE Risk Level:: Medical - moderate - high VTE Device Contraindication: Treatment Not Indicated VTE Drug Contraindication: N/A - Med Ordered
[2022-01-28 09:04] LABS: Albumin Level 2.6 g/dL (3.5-5.0); Magnesium 1.9 mg/dL (1.6-2.6); Phosphorus 3.7 mg/dL (2.7-4.5)
[2022-01-28] MEDS: Enoxaparin Sodium 30 MG/0.3 ML SYRINGE SUBCUT (09:41)
--- NOTE | 2022-01-28 09:50 | MHC.CLN ---
F/U REVIEWED LABS DIET ADVACNED TO C/L NGT REMOVED YESTERDAY DISCUSSED WITH PHARMACY PPN RECOMMEND CONTINUING D10AA4.25 AT 90ML PER HOUR WITH 9ML OF 20% LIPIDS PROVIDES 1534 TOTAL KCALS (25KCALS/KG), 92G PROTEIN (1.5G/KG BASED ON CMW) NOTED TRIGS 164 REPLETE LYTES NEEDED
--- NOTE | 2022-01-28 10:07 | HO.PM.IMPN ---
Subjective Subjective Date of Service: 01/28/22 Interval History: seen in f/u for post ERCP pancreatis, DONNIE, hypocalcemia, suspected aspiration pneumonia and overall not doing well. Interval history: feels better, comfortable, NGT out, no n/v, thirsty Review of Systems no n/v abd discomfort no fever, Physical Exam Vital Signs: Vital Signs: Last Vital Signs Temp 97.1 F 01/28/22 07:51 Pulse 87 01/28/22 07:51 Resp 20 01/28/22 07:51 BP 122/79 01/28/22 07:51 Pulse Ox 94 01/28/22 07:51 O2 Del Method 01/28/22 07:51 O2 Flow Rate 3 01/28/22 07:51 BMI result Body Mass Index 37.8 Const: Other: General: AO X 2, no acute distress NGT with bilius drainage Resp: rhonchi, diminish breath sounds CVS: S1,S2,RRR, no leg edema GI: dimimihsed, BS, NT, no distention Skin: No rash Neuro: motor grossly intact Psych:depressed affect Objective Data Active Medications Acetaminophen (Acetaminophen Supp 650 Mg Supp.Rect) 650 mg [place] Q6H PRN PRN Reason: Fever Albuterol/Ipratropium (Albuterol/Iprat 2.5/0.5mg 3 Ml Ampul.Neb) 3 ml INHALE RQ4H PRN PRN Reason: Shortness of Breath Last Admin: 01/27/22 20:10 Dose: 3 ml Documented By: DANIELLE Enoxaparin Sodium (Enoxaparin Sodium 30 Mg/0.3 Ml Syringe) 30 mg SUBCUT Q24H [facility] Last Admin: 01/28/22 09:41 Dose: 30 mg Documented By: SAMY Fluticasone/Vilanterol (Fluticasone/Vilanterol 200/25 Blst.W.Dev) 1 puff INHALE RDAILY [facility] Last Admin: 01/28/22 07:52 Dose: Not Given Documented By: TYRON Non-Admin Reason: Med Not Available Hydromorphone HCl (Hydromorphone Hcl 0.5 Mg/0.5 Ml Syringe) 0.75 mg IVPUSH Q4H PRN; Protocol PRN Reason: Pain, Severe (Pain Scale 7-10) Last Admin: 01/28/22 04:23 Dose: 0.75 mg Documented By: ERNST Metronidazole (Flagyl) 500 mg in 100 mls @ 100 mls/hr IV Q8H [facility] Last Admin: 01/28/22 07:39 Dose: 100 mls/hr Documented By: SAMY Cefepime HCl 2 gm/ Sodium (Chloride) 50 mls @ 100 mls/hr IV Q24H [facility] Last Infusion: 01/27/22 17:14 Dose: 0 mls/hr Documented By: SAMY Multivitamins 10 ml/ Trace Metals 1 ml/ Amino Acids/Electrolytes/Dextrose 2,011 mls @ 90 mls/hr IV DAILY@1800 [facility] Stop: 01/28/22 16:21 Last Infusion: 01/28/22 06:15 Dose: 0 mls/hr Documented By: ERNST Insulin Glargine (Insulin Glargine,Hum.Rec.Anlog 100 Unit/Ml 10 Ml Vial) 40 unit SUBCUT DAILY [facility] Last Admin: 01/28/22 07:39 Dose: 40 unit Documented By: SAMY Insulin Human Lispro (Insulin Lispro 100 Unit/Ml 3 Ml Vial) 0 unit SUBCUT QIDACHS [facility]; Protocol Last Admin: 01/28/22 07:38 Dose: 8 unit Documented By: SAMY Insulin Human Lispro (Insulin Lispro 100 Unit/Ml 3 Ml Vial) 5 unit SUBCUT QIDACHS [facility] Last Admin: 01/28/22 07:38 Dose: 5 unit Documented By: SAMY Levothyroxine Sodium (Levothyroxine Sodium 75 Mcg Tablet) 75 mcg PO DAILY@0600 [facility] Last Admin: 01/28/22 05:40 Dose: 75 mcg Documented By: ERNST Mirabegron (Mirabegron 25 Mg Tab.Er.24h) 25 mg PO DAILY [facility] Last Admin: 01/28/22 07:38 Dose: 25 mg Documented By: SAMY Omeprazole (Omeprazole 20 Mg Capsule.Dr) 20 mg PO DAILY@0630 [facility] Last Admin: 01/19/22 05:20 Dose: 20 mg Documented By: KENNEDY Ondansetron HCl (Ondansetron Hcl 4 Mg/2 Ml Vial) 4 mg IVPUSH Q8H PRN PRN Reason: Nausea and Vomiting Last Admin: 01/24/22 04:01 Dose: 4 mg Documented By: ERNST Sodium Chloride (0.9 % Sodium Chloride Flush 3 Ml Syringe) 3 ml IVFLUSH QSHIFT [facility] Last Admin: 01/28/22 07:40 Dose: 3 ml Documented By: SAMY Labs CBC & Chem 7: 01/22/22 09:02 01/28/22 05:58 Labs: Laboratory Results - last 24 hr 01/27/22 01/27/22 01/27/22 05:54 10:56 15:09 Anion Gap Estim Creat Clear Calc Estimated GFR POC Glucose 260 H 183 H Random Glucose Calcium Phosphorus 3.8 Magnesium 2.0 Albumin 2.5 L Triglycerides 01/27/22 01/27/22 01/28/22 19:17 23:20 05:58 Anion Gap 16 Estim Creat Clear Calc 76.7 Estimated GFR > 60 POC Glucose 163 H 192 H Random Glucose 281 H Calcium 7.9 L Phosphorus 3.7 Magnesium 1.9 Albumin 2.6 L Triglycerides 164 01/28/22 07:34 Anion Gap Estim Creat Clear Calc Estimated GFR POC Glucose 251 H Random Glucose Calcium Phosphorus Magnesium Albumin Triglycerides Assessment and Plan (1) Respiratory distress: Status: Acute (2) Nausea & vomiting: Status: Acute (3) Post-ERCP acute pancreatitis: Status: Acute (4) Common bile duct (CBD) obstruction: Status: Acute (5) Obesity (BMI 30-39.9): Status: Acute (6) Elevated LFTs: Status: Acute (7) Acute hypoxemic respiratory failure: Status: Acute (8) Atelectasis: Status: Acute (9) Hypoventilation: Status: Acute Plan 76 year old female with history of mild persistent asthma, hypothyroidism, gerd, hiatal hernia, bilateral calcific tendonitis, and urge incontinence admitted for choledocholithiais and now with post ECRCP pancreatitis, DONNIE and aspiration pneumonia. 1- Cholechodocholithiasis, s/p ERCP on 01/17 complicated by post op pancreatitis resolved -ultimately will need CCY once fully recovered from acute illness 2. Acute post ECRCP pancreaitis-- -Lipase has trended naun from 1356 to now 134. Resolved 3. HypOcalcemia d/t saponificatiion from pancreatitis, got calcium replacment and is now resolved, Ca. 7.9 normal corrected to low albumin 4. Aspiration pneumonia--Has completed 7 days of Cefepim, afebrile and WBC normal. 5. acute hypoxemic respiratory failure possible mulifactorial :atelactatsis , morbid obesity, hypoventilation,anxiety , also hx persistent asthma and pneumonia as above -has been follow by pulmonology, seen by ICU and no indication for ICU care, incentive spirometry, wean off O2 as tolerated,echo finding reviewed, no evidence of heart failure 6-Acute UTI--negative culture, adequately treated with above antibiotic pain 3-Hypothyroidism- stable -Continue levothyroxine 4-GERD- stable -EGD 07/01 with strictures with balloon dilitation 6. DONNIE --likely from shift in fluid, from pancreatitis, pre renal state--resolved, 7. Diabetes with Hyperglycemia-- Lantus adjusted to 40 daily, pre meal insulin 5 adjust parameters of SSI--> adjust for hyperglycemia 8. Post ERCP Ileus, NGT removed 01/27, trial of liquid today DVT prophylaxis- lovenox ? Need for inpatient:?Patient is nearly cricitically ill with post ERCP pancreatitis, NPO, hypocalcemia, severe ileus PNA on IV Abx , TPN.. family is been updated along the way (daughter) Quality Stroke Does the patient have a stroke diagnosis?: No VTE Prior VTE?: No VTE Risk Level:: Medical - moderate - high VTE Device Contraindication: Treatment Not Indicated VTE Drug Contraindication: N/A - Med Ordered
[2022-01-28 11:26] LABS: Glucose, Whole Blood 216 mg/dL (60-115)
[2022-01-28 16:27] LABS: Glucose, Whole Blood 206 mg/dL (60-115)
[2022-01-28 20:16] LABS: Glucose, Whole Blood 127 mg/dL (60-115)
[2022-01-28] MEDS: ondansetron HCL 4 MG/2 ML VIAL IVPUSH (20:49)
[2022-01-29] VITALS (9 sets, daily range): BP systolic 101–147; BP diastolic 55–87; PULSE 91–103; RESP 18–20; TEMP 36.2–37; O2SAT 92–98
[2022-01-29] MEDS: HYDROmorphone HCl 0.5 MG/0.5 ML SYRINGE 0.75 MG IVPUSH ×2 (03:49→18:38)
[2022-01-29] MEDS: ondansetron HCL 4 MG/2 ML VIAL IVPUSH ×2 (03:50→10:26)
[2022-01-29 05:58] LABS: Glucose, Whole Blood 100 mg/dL (60-115)
[2022-01-29 07:22] LABS: Glucose, Whole Blood 110 mg/dL (60-115)
[2022-01-29 07:26] LABS: Anion Gap 18 (12-20); Blood Urea Nitrogen 20 mg/dL (9-16); Calcium 8.2 mg/dL (8.4-10.2); Carbon Dioxide 28 mmol/L (22-29); Chloride 95 mmol/L (96-108); Creatinine Clr Calc Pharmacy 76.7; Estimated Glomerular Filt Rate > 60; Glucose Random 129 mg/dL (60-115); Potassium 4.4 mmol/L (3.3-5.1); Sodium 137 mmol/L (135-145)
[2022-01-29] MEDS: Fluticasone/Vilanterol 200/25 BLST.W.DEV 1 PUFF INHALE (07:41)
--- NOTE | 2022-01-29 08:04 | PM.PNGS ---
Subjective Subjective Date of Service: 01/29/22 Interval history: Denies abdominal pain According to nursing staff, was spitting because a lot overnight 1 small episode of this morning Passing flatus Physical Exam Vital Signs: Vital Signs: Last Vital Signs Temp 98.2 F 01/29/22 07:28 Pulse 94 01/29/22 07:42 Resp 18 01/29/22 07:42 BP 101/55 L 01/29/22 07:28 Pulse Ox 92 01/29/22 07:28 O2 Del Method 01/29/22 07:28 O2 Flow Rate 3 01/29/22 07:28 BMI result Body Mass Index 37.8 Const: General: comfortable and no acute distress Resp: Effort & Inspection: normal respiratory effort Cardio: Rate: regular rate GI: Palpation (GI): Soft to palpation and nontender Objective Data Active Medications Acetaminophen (Acetaminophen Supp 650 Mg Supp.Rect) 650 mg [place] Q6H PRN PRN Reason: Fever Enoxaparin Sodium (Enoxaparin Sodium 30 Mg/0.3 Ml Syringe) 30 mg SUBCUT Q24H [facility] Last Admin: 01/28/22 09:41 Dose: 30 mg Documented By: SAMY Fluticasone/Vilanterol (Fluticasone/Vilanterol 200/25 Blst.W.Dev) 1 puff INHALE RDAILY [facility] Last Admin: 01/29/22 07:41 Dose: 1 puff Documented By: TYRON Hydromorphone HCl (Hydromorphone Hcl 0.5 Mg/0.5 Ml Syringe) 0.75 mg IVPUSH Q4H PRN; Protocol PRN Reason: Pain, Severe (Pain Scale 7-10) Last Admin: 01/29/22 03:49 Dose: 0.75 mg Documented By: MISA Insulin Glargine (Insulin Glargine,Hum.Rec.Anlog 100 Unit/Ml 10 Ml Vial) 40 unit SUBCUT DAILY [facility] Last Admin: 01/28/22 07:39 Dose: 40 unit Documented By: SAMY Insulin Human Lispro (Insulin Lispro 100 Unit/Ml 3 Ml Vial) 0 unit SUBCUT QIDACHS [facility]; Protocol Last Admin: 01/29/22 07:50 Dose: Not Given Documented By: JANELL Non-Admin Reason: No Insulin Coverage Insulin Human Lispro (Insulin Lispro 100 Unit/Ml 3 Ml Vial) 5 unit SUBCUT QIDACHS [facility] Last Admin: 01/28/22 20:49 Dose: 5 unit Documented By: MISA Levothyroxine Sodium (Levothyroxine Sodium 75 Mcg Tablet) 75 mcg PO DAILY@0600 [facility] Last Admin: 01/29/22 06:53 Dose: Not Given Documented By: RENALDO Non-Admin Reason: patient was too nauseous Mirabegron (Mirabegron 25 Mg Tab.Er.24h) 25 mg PO DAILY [facility] Last Admin: 01/28/22 07:38 Dose: 25 mg Documented By: SAMY Omeprazole (Omeprazole 20 Mg Capsule.) 20 mg PO DAILY@0630 [facility] Last Admin: 01/19/22 05:20 Dose: 20 mg Documented By: KENNEDY Ondansetron HCl (Ondansetron Hcl 4 Mg/2 Ml Vial) 4 mg IVPUSH Q8H PRN PRN Reason: Nausea and Vomiting Last Admin: 01/29/22 03:50 Dose: 4 mg Documented By: MISA Comments: Confirmed with lisa Shane to give med early now Sodium Chloride (0.9 % Sodium Chloride Flush 3 Ml Syringe) 3 ml IVFLUSH QSHIFT [facility] Last Admin: 01/28/22 20:50 Dose: 3 ml Documented By: MISA Labs CBC & Chem 7: 01/22/22 09:02 01/29/22 06:46 Labs: Laboratory Results - last 24 hr 01/28/22 01/28/22 01/28/22 05:58 11:20 15:15 Anion Gap Estim Creat Clear Calc Estimated GFR POC Glucose 216 H 206 H Random Glucose Calcium Phosphorus 3.7 Magnesium 1.9 Albumin 2.6 L 01/28/22 01/29/22 01/29/22 20:11 05:54 06:46 Anion Gap 18 Estim Creat Clear Calc 76.7 Estimated GFR > 60 POC Glucose 127 H 100 Random Glucose 129 H Calcium 8.2 L Phosphorus Magnesium Albumin 01/29/22 07:17 Anion Gap Estim Creat Clear Calc Estimated GFR POC Glucose 110 Random Glucose Calcium Phosphorus Magnesium Albumin Procedures Date of Service Date of Service: 01/29/22 Progress Note: A&P Assessment and plan (1) Ileus: Status: Acute Assessment and Plan: NG tube removed yesterday 1 small episode of emesis this morning Will keep on clear liquids for now Encourage ambulation, bed to chair Abdomen soft and benign Time Spent With Patient Time: Total time spent is greater than 50% in coordination of care (as documented) at patient's floor/unit and/or counseling patient: Quality Stroke Does the patient have a stroke diagnosis?: No VTE Prior VTE?: No VTE Risk Level:: Medical - moderate - high VTE Device Contraindication: Treatment Not Indicated VTE Drug Contraindication: N/A - Med Ordered
[2022-01-29] MEDS: Enoxaparin Sodium 30 MG/0.3 ML SYRINGE SUBCUT (09:46)
[2022-01-29] MEDS: Mirabegron 25 MG TAB.ER.24H PO (09:46)
[2022-01-29] MEDS: Insulin Glargine,Hum.rec.anlog 100 UNIT/ML 10 ML VIAL 40 UNIT SUBCUT (09:47)
[2022-01-29] MEDS: 0.9 % Sodium Chloride Flush 3 ML SYRINGE IVFLUSH ×2 (09:48→17:57)
[2022-01-29] MEDS: Insulin Lispro 100 UNIT/ML 3 ML VIAL SUBCUT ×6 (09:48→21:05)
--- NOTE | 2022-01-29 09:52 | HO.PM.IMPN ---
Subjective Subjective Date of Service: 01/29/22 Interval History: seen in f/u for post ERCP pancreatis, DONNIE, hypocalcemia, suspected aspiration pneumonia and overall not doing well. Interval history: feels better, comfortable, NGT.. has some episode of vomitig Review of Systems + n/v abd discomfort no fever, Physical Exam Vital Signs: Vital Signs: Last Vital Signs Temp 98.2 F 01/29/22 07:28 Pulse 94 01/29/22 07:42 Resp 18 01/29/22 07:42 BP 101/55 L 01/29/22 07:28 Pulse Ox 92 01/29/22 07:28 O2 Del Method 01/29/22 07:28 O2 Flow Rate 3 01/29/22 07:28 BMI result Body Mass Index 37.8 Const: Other: General: AO X 3, no acute distress Resp: CTA bilateral CVS: S1,S2,RRR GI: +BS, ND, minimal tenderness Skin: No rash Neuro: motor grossly intact Psych: appropriate affect Objective Data Active Medications Acetaminophen (Acetaminophen Supp 650 Mg Supp.Rect) 650 mg [place] Q6H PRN PRN Reason: Fever Enoxaparin Sodium (Enoxaparin Sodium 30 Mg/0.3 Ml Syringe) 30 mg SUBCUT Q24H [facility] Last Admin: 01/29/22 09:46 Dose: 30 mg Documented By: JANELL Fluticasone/Vilanterol (Fluticasone/Vilanterol 200/25 Blst.W.Dev) 1 puff INHALE RDAILY [facility] Last Admin: 01/29/22 07:41 Dose: 1 puff Documented By: TYRON Hydromorphone HCl (Hydromorphone Hcl 0.5 Mg/0.5 Ml Syringe) 0.75 mg IVPUSH Q4H PRN; Protocol PRN Reason: Pain, Severe (Pain Scale 7-10) Last Admin: 01/29/22 03:49 Dose: 0.75 mg Documented By: MISA Insulin Glargine (Insulin Glargine,Hum.Rec.Anlog 100 Unit/Ml 10 Ml Vial) 40 unit SUBCUT DAILY [facility] Last Admin: 01/29/22 09:47 Dose: 40 unit Documented By: JANELL Insulin Human Lispro (Insulin Lispro 100 Unit/Ml 3 Ml Vial) [facility] Protocol Last Admin: 01/29/22 07:50 Dose: Not Given Documented By: JANELL Non-Admin Reason: No Insulin Coverage Insulin Human Lispro (Insulin Lispro 100 Unit/Ml 3 Ml Vial) 5 unit SUBCUT [facility] Last Admin: 01/29/22 09:48 Dose: 5 unit Documented By: JANELL Levothyroxine Sodium (Levothyroxine Sodium 75 Mcg Tablet) 75 mcg PO DAILY@0600 [facility] Last Admin: 01/29/22 06:53 Dose: Not Given Documented By: RENALDO Non-Admin Reason: patient was too nauseous Mirabegron (Mirabegron 25 Mg Tab.Er.24h) 25 mg PO DAILY [facility] Last Admin: 01/29/22 09:46 Dose: 25 mg Documented By: JANELL Omeprazole (Omeprazole 20 Mg Capsule.) 20 mg PO DAILY@0630 [facility] Last Admin: 01/19/22 05:20 Dose: 20 mg Documented By: KENNEDY Ondansetron HCl (Ondansetron Hcl 4 Mg/2 Ml Vial) 4 mg IVPUSH Q8H PRN PRN Reason: Nausea and Vomiting Last Admin: 01/29/22 03:50 Dose: 4 mg Documented By: MISA Comments: Confirmed with lisa Shane to give med early now Sodium Chloride (0.9 % Sodium Chloride Flush 3 Ml Syringe) 3 ml IVFLUSH QSHIFT [facility] Last Admin: 01/29/22 09:48 Dose: 3 ml Documented By: JANELL Labs CBC & Chem 7: 01/22/22 09:02 01/29/22 06:46 Labs: Laboratory Results - last 24 hr 01/28/22 01/28/22 01/28/22 11:20 15:15 20:11 Anion Gap Estim Creat Clear Calc Estimated GFR POC Glucose 216 H 206 H 127 H Random Glucose Calcium 01/29/22 01/29/22 01/29/22 05:54 06:46 07:17 Anion Gap 18 Estim Creat Clear Calc 76.7 Estimated GFR > 60 POC Glucose 100 110 Random Glucose 129 H Calcium 8.2 L Assessment and Plan (1) Respiratory distress: Status: Acute (2) Nausea & vomiting: Status: Acute (3) Post-ERCP acute pancreatitis: Status: Acute (4) Common bile duct (CBD) obstruction: Status: Acute (5) Obesity (BMI 30-39.9): Status: Acute (6) Elevated LFTs: Status: Acute (7) Acute hypoxemic respiratory failure: Status: Acute (8) Atelectasis: Status: Acute (9) Hypoventilation: Status: Acute Plan 76 year old female with history of mild persistent asthma, hypothyroidism, gerd, hiatal hernia, bilateral calcific tendonitis, and urge incontinence admitted for choledocholithiais and now with post ECRCP pancreatitis, DONNIE and aspiration pneumonia. 1- Cholechodocholithiasis, s/p ERCP on 01/17 complicated by post op pancreatitis resolved -ultimately will need CCY once fully recovered from acute illness 2. Acute post ECRCP pancreaitis-- -Lipase has trended naun from 1356 to now 134. Resolved 3. HypOcalcemia d/t saponificatiion from pancreatitis, got calcium replacment and is now resolved, Ca. 7.9 normal corrected to low albumin 4. Aspiration pneumonia--Has completed 7 days of Cefepim, afebrile and WBC normal. 5. acute hypoxemic respiratory failure possible mulifactorial :atelactatsis , morbid obesity, hypoventilation,anxiety , also hx persistent asthma and pneumonia as above -has been follow by pulmonology, seen by ICU and no indication for ICU care, incentive spirometry, wean off O2 as tolerated,echo finding reviewed, no evidence of heart failure 6-Acute UTI--negative culture, adequately treated with above antibiotic pain 3-Hypothyroidism- stable -Continue levothyroxine 4-GERD- stable -EGD 07/01 with strictures with balloon dilitation 6. DONNIE --likely from shift in fluid, from pancreatitis, pre renal state--resolved, 7. Diabetes with Hyperglycemia-- Lantus adjusted to 40 daily, pre meal insulin 5 adjust parameters of SSI--> adjust for hyperglycemia 8. Post ERCP Ileus, NGT removed 01/27, trial of liquid 01/28, today has N/V will get abdominal xray DVT prophylaxis- lovenox ? Need for inpatient:?Patient is nearly cricitically ill with post ERCP pancreatitis, NPO, hypocalcemia, severe ileus PNA on IV Abx , TPN.. family is been updated along the way (daughter) Quality Stroke Does the patient have a stroke diagnosis?: No VTE Prior VTE?: No VTE Risk Level:: Medical - moderate - high VTE Device Contraindication: Treatment Not Indicated VTE Drug Contraindication: N/A - Med Ordered
[2022-01-29] MEDS: Lactated Ringers 1,000 ML 100 ML IVCONT ×2 (10:55→21:05)
--- NOTE | 2022-01-29 11:25 | MHC.CLN ---
F/U DIET ADVANCED TO C/L, HOWEVER PT C/O N/V PT IS NOW CURRENTLY NPO PPN TO RESTART REVIEWED LABS; DISCUSSED WITH PHARMACY PPN RECOMMEND RE-STARTING D10AA4.25 AT 90ML PER HOUR WITH 9ML OF 20% LIPIDS TO PROVIDE 1534 TOTAL KCALS (25KCALS/KG), 92G PROTEIN (1.5G/KG BASED ON CMW) REPLETE LYTES NEEDED
[2022-01-29 11:30] LABS: Glucose, Whole Blood 164 mg/dL (60-115)
[2022-01-29 11:42] LABS: Albumin Level 2.8 g/dL (3.5-5.0); Magnesium 1.8 mg/dL (1.6-2.6); Triglycerides 111 mg/dL
--- NOTE | 2022-01-29 12:56 | PC.NURSE ---
Pt vomiting brown bile this AM and c/o nasuea. Dr Ortega and Dr Stewart made aware. Pt made NPO. IVF LR started at 100mls/hr. Abd xray ordered and completed. PRN Zofran given [address] Stewart with good affect. Pt resting in bed. Call ruiz in place. Pt has vomit bag at side.
--- NOTE | 2022-01-29 13:45 | MHC.CM.PN ---
Per ROUNDS discussion, Patient is not yet medically cleared for dc (back to NPO/vomited with attempt at liquid diet); PT is recommending STR and CM will continue to follow.
[2022-01-29 17:47] LABS: Glucose, Whole Blood 126 mg/dL (60-115)
[2022-01-29] MEDS: Fat Emulsions 20% 250 ML 9 ML IVCONT (17:59)
[2022-01-29 19:52] LABS: Glucose, Whole Blood 163 mg/dL (60-115)
[2022-01-30] VITALS (8 sets, daily range): BP systolic 112–139; BP diastolic 59–76; PULSE 86–96; RESP 16–20; TEMP 36.3–36.8; O2SAT 89–99
[2022-01-30] MEDS: Levothyroxine Sodium 75 MCG TABLET PO (04:42)
[2022-01-30] MEDS: Fat Emulsions 20% 250 ML 9 ML IVCONT ×2 (04:42→18:12)
[2022-01-30] MEDS: 0.9 % Sodium Chloride Flush 3 ML SYRINGE IVFLUSH ×3 (04:43→17:32)
[2022-01-30] MEDS: Lactated Ringers 1,000 ML 100 ML IVCONT (04:52)
[2022-01-30 06:48] LABS: Albumin Level 2.6 g/dL (3.5-5.0); Anion Gap 17 (12-20); Blood Urea Nitrogen 17 mg/dL (9-16); Calcium 7.8 mg/dL (8.4-10.2); Carbon Dioxide 26 mmol/L (22-29); Chloride 97 mmol/L (96-108); Creatinine Clr Calc Pharmacy 79.1; Estimated Glomerular Filt Rate > 60; Glucose Random 161 mg/dL (60-115); Magnesium 1.8 mg/dL (1.6-2.6); Phosphorus 3.5 mg/dL (2.7-4.5); Potassium 4.5 mmol/L (3.3-5.1); Sodium 135 mmol/L (135-145)
[2022-01-30 07:14] LABS: Glucose, Whole Blood 171 mg/dL (60-115)
[2022-01-30] MEDS: Fluticasone/Vilanterol 200/25 BLST.W.DEV 1 PUFF INHALE (07:47)
[2022-01-30] MEDS: Insulin Lispro 100 UNIT/ML 3 ML VIAL SUBCUT ×8 (08:42→20:20)
[2022-01-30] MEDS: Insulin Glargine,Hum.rec.anlog 100 UNIT/ML 10 ML VIAL 40 UNIT SUBCUT (08:43)
[2022-01-30] MEDS: Enoxaparin Sodium 30 MG/0.3 ML SYRINGE SUBCUT (08:45)
[2022-01-30] MEDS: Mirabegron 25 MG TAB.ER.24H PO (08:45)
--- NOTE | 2022-01-30 08:46 | P.PNGS_ITS ---
Subjective Subjective Date of Service: 01/30/22 Interval history: no vomiting overnight passing flatus and has been having BMs denies abdominal pain Physical Exam Vital Signs: Vital Signs: Last Vital Signs Temp 97.8 F 01/30/22 07:37 Pulse 90 01/30/22 07:47 Resp 18 01/30/22 07:47 BP 138/74 01/30/22 07:37 Pulse Ox 97 01/30/22 07:37 O2 Del Method 01/30/22 07:37 O2 Flow Rate 3 01/30/22 07:37 BMI result Body Mass Index 37.8 Const: General: comfortable Resp: Effort & Inspection: normal respiratory effort Cardio: Rate: regular rate GI: Palpation (GI): Soft to palpation and nontender Objective Data Active Medications Acetaminophen (Acetaminophen Supp 650 Mg Supp.Rect) 650 mg [place] Q6H PRN PRN Reason: Fever Albuterol/Ipratropium (Albuterol/Iprat 2.5/0.5mg 3 Ml Ampul.Neb) 3 ml INHALE RQ4H PRN PRN Reason: Wheezing Enoxaparin Sodium (Enoxaparin Sodium 30 Mg/0.3 Ml Syringe) 30 mg SUBCUT Q24H [facility] Last Admin: 01/29/22 09:46 Dose: 30 mg Documented By: JANELL Fluticasone/Vilanterol (Fluticasone/Vilanterol 200/25 Blst.W.Dev) 1 puff INHALE RDAILY [facility] Last Admin: 01/30/22 07:47 Dose: 1 puff Documented By: RAMESH Hydromorphone HCl (Hydromorphone Hcl 0.5 Mg/0.5 Ml Syringe) 0.75 mg IVPUSH Q4H PRN; Protocol PRN Reason: Pain, Severe (Pain Scale 7-10) Last Admin: 01/29/22 18:38 Dose: 0.75 mg Documented By: RANDY Lactated Ringer's (Lr) 1,000 mls @ 100 mls/hr IVCONT .Q10H [facility] Last Admin: 01/30/22 04:52 Dose: 100 mls/hr Documented By: MARITA Multivitamins 10 ml/ Trace Metals 1 ml/ Amino Acids/Electrolytes/Dextrose 2,011 mls @ 90 mls/hr IV DAILY@1800 [facility] Stop: 01/30/22 16:21 Last Admin: 01/29/22 17:58 Dose: 90 mls/hr Documented By: RANDY Fat Emulsion Intravenous (Intralipid) 108 mls @ 9 mls/hr IVCONT BID@0600,1800 [facility] Stop: 01/30/22 17:59 Last Admin: 01/30/22 04:42 Dose: 9 mls/hr Documented By: MARITA Insulin Glargine (Insulin Glargine,Hum.Rec.Anlog 100 Unit/Ml 10 Ml Vial) 40 unit SUBCUT DAILY [facility] Last Admin: 01/29/22 09:47 Dose: 40 unit Documented By: JANELL Insulin Human Lispro (Insulin Lispro 100 Unit/Ml 3 Ml Vial) 0 unit SUBCUT QIDAS [facility]; Protocol Last Admin: 01/29/22 21:05 Dose: 4 unit Documented By: RANDY Insulin Human Lispro (Insulin Lispro 100 Unit/Ml 3 Ml Vial) 5 unit SUBCUT QIDAS [facility] Last Admin: 01/29/22 21:05 Dose: 5 unit Documented By: RANDY Levothyroxine Sodium (Levothyroxine Sodium 75 Mcg Tablet) 75 mcg PO DAILY@0600 [facility] Last Admin: 01/30/22 04:42 Dose: 75 mcg Documented By: MARITA Mirabegron (Mirabegron 25 Mg Tab.Er.24h) 25 mg PO DAILY [facility] Last Admin: 01/29/22 09:46 Dose: 25 mg Documented By: JANELL Omeprazole (Omeprazole 20 Mg Capsule.Dr) 20 mg PO DAILY@0630 [facility] Last Admin: 01/19/22 05:20 Dose: 20 mg Documented By: KENNEDY Ondansetron HCl (Ondansetron Hcl 4 Mg/2 Ml Vial) 4 mg IVPUSH Q8H PRN PRN Reason: Nausea and Vomiting Last Admin: 01/29/22 10:26 Dose: 4 mg Documented By: JANELL Comments: PER MD ARRIETA. GIVE NOW Sodium Chloride (0.9 % Sodium Chloride Flush 3 Ml Syringe) 3 ml IVFLUSH QSHIFT [facility] Last Admin: 01/30/22 04:43 Dose: 3 ml Documented By: MARITA Labs CBC & Chem 7: 01/22/22 09:02 01/30/22 06:01 Labs: Laboratory Results - last 24 hr 01/29/22 01/29/22 01/29/22 06:46 11:14 17:43 Anion Gap Estim Creat Clear Calc Estimated GFR POC Glucose 164 H 126 H Random Glucose Calcium Phosphorus 4.0 Magnesium 1.8 Albumin 2.8 L Triglycerides 111 01/29/22 01/30/22 01/30/22 19:46 06:01 07:05 Anion Gap 17 Estim Creat Clear Calc 79.1 Estimated GFR > 60 POC Glucose 163 H 171 H Random Glucose 161 H Calcium 7.8 L Phosphorus 3.5 Magnesium 1.8 Albumin 2.6 L Triglycerides Procedures Date of Service Date of Service: 01/30/22 Progress Note: A&P Assessment and plan (1) Ileus: Status: Acute Assessment and Plan: ileus after post ERCP pancreatitis seems to have gastroparesis as well - she has had episodes of vomiting with oral intake no obstruction seen on CT scan try promotility agent with erythromycin out of bed to chair and must ambulate abdomen soft and benign okay to repeat trial of clear liquids Time Spent With Patient Time: Total time spent is greater than 50% in coordination of care (as documented) at patient's floor/unit and/or counseling patient: Quality Stroke Does the patient have a stroke diagnosis?: No VTE Prior VTE?: No VTE Risk Level:: Medical - moderate - high VTE Device Contraindication: Treatment Not Indicated VTE Drug Contraindication: N/A - Med Ordered
--- NOTE | 2022-01-30 09:41 | MHC.CLN ---
F/U RESTARTED C/L TODAY S/P EPISODE OF N/V NOTED GASTROPARESIS PPN TO CONTINUE REVIEWED LABS; DISCUSSED WITH PHARMACY PPN RECOMMEND CONTINUING D10AA4.25 AT 90ML PER HOUR WITH 9ML OF 20% LIPIDS TO PROVIDE 1534 TOTAL KCALS (25KCALS/KG), 92G PROTEIN (1.5G/KG BASED ON CMW) REPLETE LYTES NEEDED
[2022-01-30 11:20] LABS: Glucose, Whole Blood 215 mg/dL (60-115)
[2022-01-30] MEDS: Albuterol/Iprat 2.5/0.5MG 3 ML AMPUL.NEB INHALE (11:56)
--- NOTE | 2022-01-30 12:03 | HO.PM.IMPN ---
Subjective Subjective Date of Service: 01/31/22 Interval History: being followed for recurrent nausea vomiting, NG tube pulled out recently patient had no further bouts of nausea, vomiting overnight complaining of mild abdominal discomfort, denies chest pain, no shortness of breath but was noted to be tachypneic and diaphoretic, denies headache, lightheadedness, no fevers no chills. Review of Systems Review of Systems: Yes all other systems are reviewed and are negative Physical Exam Vital Signs: Vital Signs: Last Vital Signs Temp 98.2 F 01/30/22 11:39 Pulse 86 01/30/22 11:57 Resp 18 01/30/22 11:57 BP 139/76 01/30/22 11:39 Pulse Ox 90 L 01/30/22 11:39 O2 Del Method 01/30/22 11:39 O2 Flow Rate 3 01/30/22 11:39 BMI result Body Mass Index 37.8 Const: Other: General Awake alert, mild diaphoresis, no acute distress. Neck supple no JVD. CVS regular rate rhythm, Respiratory lungs bilateral rhonchi, no respiratory distress no use of accessory muscles, no crackles. Gastrointestinal abdomen obese,soft, mild epigastric discomfort, bowel sounds audible, no guarding , no rigidity. Extremities no edema. cold extremities Neuro nonfocal Skin no rash psych appropriate affect Objective Data Active Medications Acetaminophen (Acetaminophen Supp 650 Mg Supp.Rect) 650 mg ID Q6H PRN PRN Reason: Fever Albuterol/Ipratropium (Albuterol/Iprat 2.5/0.5mg 3 Ml Ampul.Neb) 3 ml INHALE RQ4H PRN PRN Reason: Wheezing Enoxaparin Sodium (Enoxaparin Sodium 30 Mg/0.3 Ml Syringe) 30 mg SUBCUT Q24H [facility] Last Admin: 01/30/22 08:45 Dose: 30 mg Documented By: TADEO Fluticasone/Vilanterol (Fluticasone/Vilanterol 200/25 Blst.W.Dev) 1 puff INHALE RDAILY [facility] Last Admin: 01/30/22 07:47 Dose: 1 puff Documented By: RAMESH Hydromorphone HCl (Hydromorphone Hcl 0.5 Mg/0.5 Ml Syringe) 0.75 mg IVPUSH Q4H PRN; Protocol PRN Reason: Pain, Severe (Pain Scale 7-10) Last Admin: 01/29/22 18:38 Dose: 0.75 mg Documented By: RANDY Multivitamins 10 ml/ Trace Metals 1 ml/ Amino Acids/Electrolytes/Dextrose 2,011 mls @ 90 mls/hr IV DAILY@1800 [facility] Stop: 01/30/22 16:21 Last Admin: 01/29/22 17:58 Dose: 90 mls/hr Documented By: RANDY Fat Emulsion Intravenous (Intralipid) 108 mls @ 9 mls/hr IVCONT BID@0600,1800 [facility] Stop: 01/30/22 17:59 Last Admin: 01/30/22 04:42 Dose: 9 mls/hr Documented By: MARITA Multivitamins 10 ml/ Trace Metals 1 ml/ Amino Acids/Electrolytes/Dextrose 2,011 mls @ 90 mls/hr IV DAILY@1800 [facility] Stop: 01/31/22 16:21 Fat Emulsion Intravenous (Intralipid) 108 mls @ 9 mls/hr IVCONT BID@0600,1800 [facility] Stop: 01/31/22 17:59 Insulin Glargine (Insulin Glargine,Hum.Rec.Anlog 100 Unit/Ml 10 Ml Vial) 40 unit SUBCUT DAILY [facility] Last Admin: 01/30/22 08:43 Dose: 40 unit Documented By: TADEO Insulin Human Lispro (Insulin Lispro 100 Unit/Ml 3 Ml Vial) 0 unit SUBCUT QIDACHS [facility]; Protocol Last Admin: 01/30/22 11:58 Dose: 6 unit Documented By: TADEO Insulin Human Lispro (Insulin Lispro 100 Unit/Ml 3 Ml Vial) 5 unit SUBCUT QIDACHS [facility] Last Admin: 01/30/22 11:59 Dose: 5 unit Documented By: TADEO Levothyroxine Sodium (Levothyroxine Sodium 75 Mcg Tablet) 75 mcg PO DAILY@0600 [facility] Last Admin: 01/30/22 04:42 Dose: 75 mcg Documented By: MARITA Mirabegron (Mirabegron 25 Mg Tab.Er.24h) 25 mg PO DAILY [facility] Last Admin: 01/30/22 08:45 Dose: 25 mg Documented By: TADEO Omeprazole (Omeprazole 20 Mg Capsule.Dr) 20 mg PO DAILY@0630 [facility] Last Admin: 01/19/22 05:20 Dose: 20 mg Documented By: KENNEDY Ondansetron HCl (Ondansetron Hcl 4 Mg/2 Ml Vial) 4 mg IVPUSH Q8H PRN PRN Reason: Nausea and Vomiting Last Admin: 01/29/22 10:26 Dose: 4 mg Documented By: JANELL Comments: PER MD ARRIETA. GIVE NOW Sodium Chloride (0.9 % Sodium Chloride Flush 3 Ml Syringe) 3 ml IVFLUSH QSHIFT [facility] Last Admin: 01/30/22 08:45 Dose: 3 ml Documented By: TADEO Labs CBC & Chem 7: 01/22/22 09:02 01/31/22 06:03 Labs: Laboratory Results - last 24 hr 01/29/22 01/29/22 01/30/22 17:43 19:46 06:01 Anion Gap 17 Estim Creat Clear Calc 79.1 Estimated GFR > 60 POC Glucose 126 H 163 H Random Glucose 161 H Calcium 7.8 L Phosphorus 3.5 Magnesium 1.8 Albumin 2.6 L 01/30/22 01/30/22 07:05 11:17 Anion Gap Estim Creat Clear Calc Estimated GFR POC Glucose 171 H 215 H Random Glucose Calcium Phosphorus Magnesium Albumin Assessment and Plan (1) Respiratory distress: Status: Acute (2) Nausea & vomiting: Status: Acute (3) Post-ERCP acute pancreatitis: Status: Acute (4) Common bile duct (CBD) obstruction: Status: Acute (5) Obesity (BMI 30-39.9): Status: Acute (6) Elevated LFTs: Status: Acute (7) Acute hypoxemic respiratory failure: Status: Acute (8) Atelectasis: Status: Acute (9) Hypoventilation: Status: Acute Plan 76 year old female with history of mild persistent asthma, hypothyroidism, gerd, hiatal hernia, bilateral calcific tendonitis, and urge incontinence admitted for choledocholithiais and now with post ECRCP pancreatitis, DONNIE and aspiration pneumonia. 1- Cholechodocholithiasis, s/p ERCP on 01/17 complicated by post op pancreatitis resolved,ultimately will need CCY once fully recovered from acute illness, as per General surgery 2. Acute post ECRCP pancreaitis/ Ileus -- NG tube removed on 01/27, patient noted to have nausea vomiting yesterday, KUB showed mild adynamic ileus no free intraperitoneal air, case discussed with Dr. Ortega he recommended clear liquid diet and follow clinical course,-Lipase has trended naun from 1356 to now 134. continue TPN persistent low albumin 3. HypOcalcemia d/t saponificatiion from pancreatitis, calcium improved to 7.8, normal with corrected albumin, status post calcium replacment 4. Aspiration pneumonia--Has completed 7 days of Cefepim, afebrile and WBC improved to 13.6 5. acute hypoxemic respiratory failure possible mulifactorial : nurse noted patient to have increased work of breathing with diaphoresis patient denies shortness of breath, denies chest pain ,chest examination revealed rhonchi will DC IV fluid obtain chest x-ray, start DuoNeb treatment follow clinical course closely. atelactatsis , morbid obesity, hypoventilation,anxiety , persistent asthma and pneumonia also might be contributing. continue incentive spirometry, wean off O2 as tolerated,echo showed normal EF no evidence of all motion abnormality and normal diastolic function 6-Acute UTI-- status post 7 days of antibiotics,negative culture 3-Hypothyroidism- stable, Continue levothyroxine 4-GERD- stable - continue Prilosec,EGD 07/01 with strictures with balloon dilitation 6. DONNIE --likely pre renal resolved will DC IV fluids 7. Diabetes with Hyperglycemia--on Lantus 40 daily, pre meal insulin 5 u qid and SSI--> adjust for hyperglycemia DVT prophylaxis- lovenox Need for inpatient:? patient need continued inpatient hospitalization since NPO related to ileus and post ERCP pancreatitis, on TPN and persistent acute hypoxic respiratory failure. spoke with granddaughter at bedside and updated her regarding patient's clinical condition. Quality Stroke Does the patient have a stroke diagnosis?: No VTE Prior VTE?: No VTE Risk Level:: Medical - moderate - high VTE Device Contraindication: Treatment Not Indicated VTE Drug Contraindication: N/A - Med Ordered
[2022-01-30 16:50] LABS: Glucose, Whole Blood 194 mg/dL (60-115)
[2022-01-30 20:06] LABS: Glucose, Whole Blood 179 mg/dL (60-115)
[2022-01-31] VITALS (10 sets, daily range): BP systolic 123–146; BP diastolic 60–88; PULSE 88–95; RESP 15–22; TEMP 36.1–36.7; O2SAT 90–99
[2022-01-31] MEDS: 0.9 % Sodium Chloride Flush 3 ML SYRINGE IVFLUSH ×4 (01:05→21:42)
[2022-01-31] MEDS: Levothyroxine Sodium 75 MCG TABLET PO (06:11)
[2022-01-31 06:58] LABS: Anion Gap 16 (12-20); Blood Urea Nitrogen 17 mg/dL (9-16); Calcium 7.8 mg/dL (8.4-10.2); Carbon Dioxide 27 mmol/L (22-29); Chloride 98 mmol/L (96-108); Creatinine Clr Calc Pharmacy 79.1; Estimated Glomerular Filt Rate > 60; Glucose Random 207 mg/dL (60-115); Potassium 4.6 mmol/L (3.3-5.1); Sodium 136 mmol/L (135-145)
[2022-01-31] MEDS: Fluticasone/Vilanterol 200/25 BLST.W.DEV 1 PUFF INHALE (08:42)
[2022-01-31 09:05] LABS: Glucose, Whole Blood 218 mg/dL (60-115)
[2022-01-31] MEDS: Mirabegron 25 MG TAB.ER.24H PO (09:31)
[2022-01-31] MEDS: Insulin Lispro 100 UNIT/ML 3 ML VIAL SUBCUT ×5 (09:31→17:36)
[2022-01-31] MEDS: Enoxaparin Sodium 30 MG/0.3 ML SYRINGE SUBCUT (09:31)
[2022-01-31] MEDS: Furosemide 20 MG/2 ML VIAL IVPUSH (09:33)
[2022-01-31] MEDS: Insulin Glargine,Hum.rec.anlog 100 UNIT/ML 10 ML VIAL 40 UNIT SUBCUT (09:33)
[2022-01-31] MEDS: Fat Emulsions 20% 250 ML 9 ML IVCONT (09:33)
--- NOTE | 2022-01-31 10:02 | P.PNGS_ITS ---
Subjective Subjective Date of Service: 02/01/22 Interval history: wants to eat no vomiting as per staff patient has been passing flatus and BMs denies abdominal pain Physical Exam Vital Signs: Vital Signs: Last Vital Signs Temp 97.6 F 01/31/22 07:47 Pulse 90 01/31/22 08:46 Resp 20 01/31/22 08:46 BP 145/88 H 01/31/22 07:47 Pulse Ox 95 01/31/22 07:47 O2 Del Method 01/31/22 07:47 O2 Flow Rate 3 01/31/22 07:47 BMI result Body Mass Index 37.8 Const: General: comfortable and no acute distress Resp: Effort & Inspection: normal respiratory effort Cardio: Rate: regular rate GI: Other: obese, soft, no guarding rebound, no obvious tenderness Objective Data Active Medications Acetaminophen (Acetaminophen Supp 650 Mg Supp.Rect) 650 mg [place] Q6H PRN PRN Reason: Fever Albuterol/Ipratropium (Albuterol/Iprat 2.5/0.5mg 3 Ml Ampul.Neb) 3 ml INHALE RQ4H PRN PRN Reason: Wheezing Enoxaparin Sodium (Enoxaparin Sodium 30 Mg/0.3 Ml Syringe) 30 mg SUBCUT Q24H [facility] Last Admin: 01/31/22 09:31 Dose: 30 mg Documented By: TADEO Fluticasone/Vilanterol (Fluticasone/Vilanterol 200/25 Blst.W.Dev) 1 puff INHALE RDAILY [facility] Last Admin: 01/31/22 08:42 Dose: 1 puff Documented By: RAMESH Hydromorphone HCl (Hydromorphone Hcl 0.5 Mg/0.5 Ml Syringe) 0.75 mg IVPUSH Q4H PRN; Protocol PRN Reason: Pain, Severe (Pain Scale 7-10) Last Admin: 01/29/22 18:38 Dose: 0.75 mg Documented By: RANDY Multivitamins 10 ml/ Trace Metals 1 ml/ Amino Acids/Electrolytes/Dextrose 2,011 mls @ 90 mls/hr IV DAILY@1800 [facility] Stop: 01/31/22 16:21 Last Admin: 01/30/22 18:12 Dose: 90 mls/hr Documented By: TADEO Fat Emulsion Intravenous (Intralipid) 108 mls @ 9 mls/hr IVCONT BID@0600,1800 [facility] Stop: 01/31/22 17:59 Last Admin: 01/31/22 09:33 Dose: 9 mls/hr Documented By: TADEO Insulin Glargine (Insulin Glargine,Hum.Rec.Anlog 100 Unit/Ml 10 Ml Vial) 40 unit SUBCUT DAILY [facility] Last Admin: 01/31/22 09:33 Dose: 40 unit Documented By: TADEO Insulin Human Lispro (Insulin Lispro 100 Unit/Ml 3 Ml Vial) [facility] Protocol Last Admin: 01/31/22 09:31 Dose: 6 unit Documented By: TADEO Insulin Human Lispro (Insulin Lispro 100 Unit/Ml 3 Ml Vial) [facility] Last Admin: 01/31/22 09:32 Dose: 5 unit Documented By: TADEO Levothyroxine Sodium (Levothyroxine Sodium 75 Mcg Tablet) 75 mcg PO DAILY@0600 [facility] Last Admin: 01/31/22 06:11 Dose: 75 mcg Documented By: ANDREA Mirabegron (Mirabegron 25 Mg Tab.Er.24h) 25 mg PO DAILY [facility] Last Admin: 01/31/22 09:31 Dose: 25 mg Documented By: TADEO Omeprazole (Omeprazole 20 Mg Capsule.Dr) 20 mg PO DAILY@0630 [facility] Last Admin: 01/19/22 05:20 Dose: 20 mg Documented By: KENNEDY Ondansetron HCl (Ondansetron Hcl 4 Mg/2 Ml Vial) 4 mg IVPUSH Q8H PRN PRN Reason: Nausea and Vomiting Last Admin: 01/29/22 10:26 Dose: 4 mg Documented By: JANELL Comments: PER MD ARRIETA. GIVE NOW Sodium Chloride (0.9 % Sodium Chloride Flush 3 Ml Syringe) 3 ml IVFLUSH QSHIFT [facility] Last Admin: 01/31/22 09:33 Dose: 3 ml Documented By: TADEO Labs CBC & Chem 7: 01/22/22 09:02 02/01/22 06:28 Labs: Laboratory Results - last 24 hr 09/22/22 09/22/22 09/22/22 11:17 16:23 19:46 Anion Gap Estim Creat Clear Calc Estimated GFR POC Glucose 215 H 194 H 179 H Random Glucose Calcium 01/31/22 01/31/22 06:03 09:01 Anion Gap 16 Estim Creat Clear Calc 79.1 Estimated GFR > 60 POC Glucose 218 H Random Glucose 207 H Calcium 7.8 L Procedures Date of Service Date of Service: 01/31/22 Progress Note: A&P Assessment and plan (1) Ileus: Status: Acute Assessment and Plan: may have gastroparesis presenting with vomiting with oral intake continues to have flatus and has BMs abdomen soft and benign keep on clear liquids for now and advance slowly as tolerated started on erythromycin as promotility agent needs to get out of bed to recliner, increase activity - explained this to patient she is refusing to get out of bed today Time Spent With Patient Time: Total time spent is greater than 50% in coordination of care (as documented) at patient's floor/unit and/or counseling patient: Quality Stroke Does the patient have a stroke diagnosis?: No VTE Prior VTE?: No VTE Risk Level:: Medical - moderate - high VTE Device Contraindication: Treatment Not Indicated VTE Drug Contraindication: N/A - Med Ordered
--- NOTE | 2022-01-31 10:20 | MHC.CM.PN ---
Patient's SNF referrals have been updated; CM will continue to follow.
--- NOTE | 2022-01-31 10:21 | MHC.CM.PN ---
Home continues to be the goal and CM will continue to follow.
[2022-01-31 11:15] LABS: Glucose, Whole Blood 236 mg/dL (60-115)
[2022-01-31] MEDS: Erythromycin Base 250 MG TABLET PO ×2 (11:43→17:35)
[2022-01-31] MEDS: Albuterol/Iprat 2.5/0.5MG 3 ML AMPUL.NEB INHALE ×2 (13:21→20:22)
--- NOTE | 2022-01-31 13:47 | P.PNIM_ITS ---
Subjective Subjective Date of Service: 01/31/22 Interval History: complaining of chest congestion and tightness no significant change since yesterday tolerating clear liquid diet denies nausea vomiting had small bowel movement denies abdominal pain, no fevers no chills no shortness of breath no lightheadedness or dizziness no other acute issues overnight. Review of Systems Review of Systems: Yes all other systems are reviewed and are negative Physical Exam Vital Signs: Vital Signs: Last Vital Signs Temp 97.4 F 01/31/22 11:09 Pulse 92 01/31/22 13:23 Resp 18 01/31/22 13:23 BP 146/70 H 01/31/22 11:13 Pulse Ox 93 01/31/22 11:13 O2 Del Method 01/31/22 11:09 O2 Flow Rate 3 01/31/22 11:09 BMI result Body Mass Index 37.8 Const: Other: General ? Awake al ert x3, no acute d istress.? Neck sup ple no JVD. CVS? r egular rate rhythm , Respiratory lung s?scattered rhonch i, no respiratory distress no use of accessory muscles , no crackles. Gas trointestinal abdo men? obese,soft, n o epigastric disco mfort, bowel sound s audible, no guar ding , no rigidity . Extremities no e shantel. Neuro nonfo melvi Skin no rash p sych appropriate a ffect Objective Data Active Medications Acetaminophen (Acetaminophen Supp 650 Mg Supp.Rect) 650 mg MD Q6H PRN PRN Reason: Fever Albuterol/Ipratropium (Albuterol/Iprat 2.5/0.5mg 3 Ml Ampul.Neb) 3 ml INHALE RQ4H PRN PRN Reason: Wheezing Last Admin: 01/31/22 13:21 Dose: 3 ml Documented By: RAMESH Albuterol/Ipratropium (Albuterol/Iprat 2.5/0.5mg 3 Ml Ampul.Neb) 3 ml INHALE BID UYEN Enoxaparin Sodium (Enoxaparin Sodium 30 Mg/0.3 Ml Syringe) 30 mg SUBCUT Q24H [facility] Last Admin: 01/31/22 09:31 Dose: 30 mg Documented By: TADEO Erythromycin (Erythromycin Base 250 Mg Tablet) 250 mg PO Q8H [facility] Last Admin: 01/31/22 11:43 Dose: 250 mg Documented By: TADEO Fluticasone/Vilanterol (Fluticasone/Vilanterol 200/25 Blst.W.Dev) 1 puff INHALE RDAILY [facility] Last Admin: 01/31/22 08:42 Dose: 1 puff Documented By: RAMESH Hydromorphone HCl (Hydromorphone Hcl 0.5 Mg/0.5 Ml Syringe) 0.75 mg IVPUSH Q4H PRN; Protocol PRN Reason: Pain, Severe (Pain Scale 7-10) Last Admin: 01/29/22 18:38 Dose: 0.75 mg Documented By: RANDY Multivitamins 10 ml/ Trace Metals 1 ml/ Amino Acids/Electrolytes/Dextrose 2,011 mls @ 90 mls/hr IV DAILY@1800 [facility] Stop: 01/31/22 16:21 Last Admin: 01/30/22 18:12 Dose: 90 mls/hr Documented By: TADEO Fat Emulsion Intravenous (Intralipid) 108 mls @ 9 mls/hr IVCONT BID@0600,1800 [facility] Stop: 01/31/22 17:59 Last Admin: 01/31/22 09:33 Dose: 9 mls/hr Documented By: TADEO Insulin Glargine (Insulin Glargine,Hum.Rec.Anlog 100 Unit/Ml 10 Ml Vial) 40 unit SUBCUT DAILY [facility] Last Admin: 01/31/22 09:33 Dose: 40 unit Documented By: TADEO Insulin Human Lispro (Insulin Lispro 100 Unit/Ml 3 Ml Vial) 0 unit SUBCUT QIDACHS [facility]; Protocol Last Admin: 01/31/22 11:44 Dose: 6 unit Documented By: TADEO Insulin Human Lispro (Insulin Lispro 100 Unit/Ml 3 Ml Vial) 5 unit SUBCUT QID [facility] Last Admin: 01/31/22 11:44 Dose: 5 unit Documented By: TADEO Levothyroxine Sodium (Levothyroxine Sodium 75 Mcg Tablet) 75 mcg PO DAILY@0600 [facility] Last Admin: 01/31/22 06:11 Dose: 75 mcg Documented By: ANDREA Mirabegron (Mirabegron 25 Mg Tab.Er.24h) 25 mg PO DAILY [facility] Last Admin: 01/31/22 09:31 Dose: 25 mg Documented By: TADEO Omeprazole (Omeprazole 20 Mg Shaun.) 20 mg PO DAILY@0630 [facility] Last Admin: 01/19/22 05:20 Dose: 20 mg Documented By: KENNEDY Ondansetron HCl (Ondansetron Hcl 4 Mg/2 Ml Vial) 4 mg IVPUSH Q8H PRN PRN Reason: Nausea and Vomiting Last Admin: 01/29/22 10:26 Dose: 4 mg Documented By: JANELL Comments: PER MD ARRIETA. GIVE NOW Sodium Chloride (0.9 % Sodium Chloride Flush 3 Ml Syringe) 3 ml IVFLUSH QSHIFT [facility] Last Admin: 01/31/22 09:33 Dose: 3 ml Documented By: TADEO Labs CBC & Chem 7: 01/22/22 09:02 01/31/22 06:03 Labs: Laboratory Results - last 24 hr 01/30/22 01/30/22 01/31/22 16:23 19:46 06:03 Anion Gap 16 Estim Creat Clear Calc 79.1 Estimated GFR > 60 POC Glucose 194 H 179 H Random Glucose 207 H Calcium 7.8 L 01/31/22 01/31/22 09:01 11:01 Anion Gap Estim Creat Clear Calc Estimated GFR POC Glucose 218 H 236 H Random Glucose Calcium Assessment and Plan (1) Ileus: Status: Acute (2) Hypoventilation: Status: Acute (3) Atelectasis: Status: Acute (4) Acute hypoxemic respiratory failure: Status: Acute Plan 76 year old female with history of mild persistent asthma, hypothyroidism, gerd, hiatal hernia, bilateral calcific tendonitis, and urge incontinence admitted for choledocholithiais and now with post ECRCP pancreatitis, DONNIE and aspiration pneumonia. 1- Cholechodocholithiasis, s/p? ERCP? on 01/17 complicated by post op pancreatitis resolved,CCY to be planned as per General surgery 2. Acute post ECRCP pancreaitis/ Ileus --? NG tube removed on 01/27, KUB showed mild adynamic ileus no free intraperitoneal air, patient started on clear liquid diet tolerating well no recurrent nausea vomiting in last 24 hours continue erythromycin 250 mg q.8 hours for possible gastroparesis will DC TPN lipase trended down from 1356 to now 134. ?? continue TPN persistent low albumin strongly recommended out of bed to chair advance diet as per General surgery 3. HypOcalcemia d/t saponificatiion from pancreatitis,? calcium improved to 7.8, normal with corrected albumin, status post calcium replacment 4. Aspiration pneumonia--Has completed 7 days of Cefepim, afebrile and WBC? improved to 13.6 5. acute hypoxemic respiratory failure possible mulifactorial : patient complaining of chest congestion and tightness, noted to have significant positive fluid balance chest x-ray 01/30 showed right basilar opacity with differential of fluid /atelectasis/ infiltrate or effusion no at right base will, start DuoNeb treatment b.i.d. place on Lasix 40 mg daily, encourage incentive spirometry. ? ?wean off O2 as tolerated,echo showed normal EF no evidence of all motion abnormality and normal diastolic function 6-Acute UTI-- status post 7 days of antibiotics,negative culture 3-Hypothyroidism- stable, Continue levothyroxine 4-GERD- stable - continue Prilosec,EGD 07/01 with strictures with balloon dilitation 6. DONNIE --likely? pre renal resolved will DC IV fluids 7. Diabetes with Hyperglycemia--on Lantus 40 daily,? pre meal insulin 5 u qid and SSI-- since patient on clear liquid diet and TPN decreased will lower dose of Lantus DVT prophylaxis- lovenox ?Need for inpatient:? patient need continued inpatient hospitalization since on clear liquids related to ileus and post ERCP pancreatitis,?and persistent acute hypoxic respiratory failure. ? Quality Stroke Does the patient have a stroke diagnosis?: No VTE Prior VTE?: No VTE Risk Level:: Medical - moderate - high VTE Device Contraindication: Treatment Not Indicated VTE Drug Contraindication: N/A - Med Ordered
--- NOTE | 2022-01-31 14:20 | MHC.CLN ---
F/U C/L DIET CONTINUES PPN D/C TODAY TOLERATING CLEARS WITH 75% INTAKE RECOMMEND ADDING ENSURE CLEAR TID TO INCREASE KCALS MONITOR PO INTAKE CLOSELY
[2022-01-31] MEDS: Furosemide 40 MG TABLET PO (14:37)
[2022-01-31 16:20] LABS: Glucose, Whole Blood 105 mg/dL (60-115)
[2022-01-31 19:38] LABS: Glucose, Whole Blood 75 mg/dL (60-115)
[2022-02-01] VITALS (7 sets, daily range): BP systolic 102–145; BP diastolic 52–81; PULSE 89–92; RESP 18–20; TEMP 36.1–37.5; O2SAT 90–95
[2022-02-01] MEDS: Erythromycin Base 250 MG TABLET PO ×2 (05:27→10:24)
[2022-02-01] MEDS: Levothyroxine Sodium 75 MCG TABLET PO (05:27)
[2022-02-01 07:26] LABS: Glucose, Whole Blood 77 mg/dL (60-115)
[2022-02-01 07:30] LABS: Anion Gap 17 (12-20); Blood Urea Nitrogen 13 mg/dL (9-16); Calcium 7.9 mg/dL (8.4-10.2); Carbon Dioxide 25 mmol/L (22-29); Chloride 99 mmol/L (96-108); Creatinine Clr Calc Pharmacy 87.2; Estimated Glomerular Filt Rate > 60; Glucose Random 80 mg/dL (60-115); Potassium 4.4 mmol/L (3.3-5.1); Sodium 137 mmol/L (135-145)
[2022-02-01] MEDS: Albuterol/Iprat 2.5/0.5MG 3 ML AMPUL.NEB INHALE (07:41)
[2022-02-01] MEDS: Fluticasone/Vilanterol 200/25 BLST.W.DEV 1 PUFF INHALE (07:51)
[2022-02-01] MEDS: Mirabegron 25 MG TAB.ER.24H PO (08:27)
[2022-02-01] MEDS: Furosemide 40 MG TABLET PO (08:27)
[2022-02-01] MEDS: 0.9 % Sodium Chloride Flush 3 ML SYRINGE IVFLUSH ×2 (08:28→15:58)
[2022-02-01] MEDS: Enoxaparin Sodium 30 MG/0.3 ML SYRINGE SUBCUT (09:24)
--- NOTE | 2022-02-01 10:15 | PM.PNGS ---
Subjective Subjective Date of Service: 02/01/22 Interval history: finally agreed to get out of bed to recliner this morning tolerating clear liquids no vomiting passing stools and flatus denies abdominal pain Physical Exam Vital Signs: Vital Signs: Last Vital Signs Temp 97.8 F 02/01/22 07:17 Pulse 91 02/01/22 07:42 Resp 18 02/01/22 07:42 BP 124/73 02/01/22 07:17 Pulse Ox 93 02/01/22 07:17 O2 Del Method 02/01/22 07:17 O2 Flow Rate 3 02/01/22 07:17 BMI result Body Mass Index 37.8 Const: General: no acute distress Resp: Other: a little short of breath after getting out of bed Cardio: Rate: regular rate GI: Other: obese, soft, nontender Objective Data Active Medications Acetaminophen (Acetaminophen Supp 650 Mg Supp.Rect) 650 mg MS Q6H PRN PRN Reason: Fever Albuterol/Ipratropium (Albuterol/Iprat 2.5/0.5mg 3 Ml Ampul.Neb) 3 ml INHALE RQ4H PRN PRN Reason: Wheezing Last Admin: 01/31/22 13:21 Dose: 3 ml Documented By: RAMESH Albuterol/Ipratropium (Albuterol/Iprat 2.5/0.5mg 3 Ml Ampul.Neb) 3 ml INHALE BID [facility] Last Admin: 02/01/22 07:41 Dose: 3 ml Documented By: MK Enoxaparin Sodium (Enoxaparin Sodium 30 Mg/0.3 Ml Syringe) 30 mg SUBCUT Q24H [facility] Last Admin: 02/01/22 09:24 Dose: 30 mg Documented By: GARCIA Erythromycin (Erythromycin Base 250 Mg Tablet) 250 mg PO Q8H [facility] Last Admin: 02/01/22 05:27 Dose: 250 mg Documented By: ANTOIC Fluticasone/Vilanterol (Fluticasone/Vilanterol 200/25 Blst.W.Dev) 1 puff INHALE RDAILY [facility] Last Admin: 02/01/22 07:51 Dose: 1 puff Documented By: MK Furosemide (Furosemide 40 Mg Tablet) 40 mg PO DAILY [facility]; Protocol Last Admin: 02/01/22 08:27 Dose: 40 mg Documented By: GARCIA Hydromorphone HCl (Hydromorphone Hcl 0.5 Mg/0.5 Ml Syringe) 0.75 mg IVPUSH Q4H PRN; Protocol PRN Reason: Pain, Severe (Pain Scale 7-10) Last Admin: 01/29/22 18:38 Dose: 0.75 mg Documented By: RANDY Insulin Glargine (Insulin Glargine,Hum.Rec.Anlog 100 Unit/Ml 10 Ml Vial) 20 unit SUBCUT DAILY [facility] Last Admin: 02/01/22 08:27 Dose: Not Given Documented By: GARCIA Non-Admin Reason: See Note Comments: not given sugar in the 's Insulin Human Lispro (Insulin Lispro 100 Unit/Ml 3 Ml Vial) 0 unit SUBCUT QIDACHS [facility]; Protocol Last Admin: 02/01/22 07:24 Dose: Not Given Documented By: GARCIA Non-Admin Reason: No Insulin Coverage Insulin Human Lispro (Insulin Lispro 100 Unit/Ml 3 Ml Vial) 5 unit SUBCUT QIDAS [facility] Last Admin: 02/01/22 07:27 Dose: Not Given Documented By: GARCIA Non-Admin Reason: No Insulin Coverage Levothyroxine Sodium (Levothyroxine Sodium 75 Mcg Tablet) 75 mcg PO DAILY@0600 [facility] Last Admin: 02/01/22 05:27 Dose: 75 mcg Documented By: ANTOIC Mirabegron (Mirabegron 25 Mg Tab.Er.24h) 25 mg PO DAILY [facility] Last Admin: 02/01/22 08:27 Dose: 25 mg Documented By: GARCIA Omeprazole (Omeprazole 20 Mg Capsule.Dr) 20 mg PO DAILY@0630 [facility] Last Admin: 01/19/22 05:20 Dose: 20 mg Documented By: KENNEDY Ondansetron HCl (Ondansetron Hcl 4 Mg/2 Ml Vial) 4 mg IVPUSH Q8H PRN PRN Reason: Nausea and Vomiting Last Admin: 01/29/22 10:26 Dose: 4 mg Documented By: JANELL Comments: PER MD ARRIETA. GIVE NOW Sodium Chloride (0.9 % Sodium Chloride Flush 3 Ml Syringe) 3 ml IVFLUSH QSHIFT [facility] Last Admin: 02/01/22 08:28 Dose: 3 ml Documented By: GARCIA Labs CBC & Chem 7: 01/22/22 09:02 02/01/22 06:28 Labs: Laboratory Results - last 24 hr 01/31/22 01/31/22 01/31/22 11:01 16:17 19:34 Anion Gap Estim Creat Clear Calc Estimated GFR POC Glucose 236 H 105 75 Random Glucose Calcium 02/01/22 02/01/22 06:28 07:24 Anion Gap 17 Estim Creat Clear Calc 87.2 Estimated GFR > 60 POC Glucose 77 Random Glucose 80 Calcium 7.9 L Procedures Date of Service Date of Service: 02/01/22 Progress Note: A&P Assessment and plan (1) Ileus: Status: Acute Assessment and Plan: symptoms of ileus resolving may have gastroparesis as well has flatus and loose stools tolerating clear liquids okay to try full liquids later on today emphasized to patient she needs to get out of bed more reviewed with hospitalist Time Spent With Patient Time: Total time spent is greater than 50% in coordination of care (as documented) at patient's floor/unit and/or counseling patient: Quality Stroke Does the patient have a stroke diagnosis?: No VTE Prior VTE?: No VTE Risk Level:: Medical - moderate - high VTE Device Contraindication: Treatment Not Indicated VTE Drug Contraindication: N/A - Med Ordered
[2022-02-01 11:19] LABS: Glucose, Whole Blood 120 mg/dL (60-115)
--- NOTE | 2022-02-01 12:02 | HO.PM.IMPN ---
Subjective Subjective Date of Service: 02/01/22 Interval History: patient feeling better this morning, denies abdominal pain denies chest congestion, no shortness of breath, no fevers no chills tolerating diet no further bouts of nausea vomiting in last 48 hours had 2 loose stools yesterday tolerating clear liquid diet,. No acute events overnight. Review of Systems Review of Systems: Yes all other systems are reviewed and are negative Physical Exam Vital Signs: Vital Signs: Last Vital Signs Temp 99.5 F 02/01/22 11:17 Pulse 89 02/01/22 11:17 Resp 20 02/01/22 11:17 BP 102/52 L 02/01/22 11:17 Pulse Ox 95 02/01/22 11:17 O2 Del Method 02/01/22 11:17 O2 Flow Rate 3 02/01/22 11:17 BMI result Body Mass Index 37.8 Const: Other: General ?Awake alert, no acute distress.? Neck supple no JVD. CVS? regular rate rhythm, Respiratory lungs?few bilateral rhonchi, no respiratory distress no use of accessory muscles, no crackles. Gastrointestinal abdomen?obese,soft, bowel sounds audible, no guarding , no rigidity. Extremities no edema. Neuro nonfocal Skin no rash psych appropriate affect Objective Data Active Medications Acetaminophen (Acetaminophen Supp 650 Mg Supp.Rect) 650 mg [place] Q6H PRN PRN Reason: Fever Albuterol/Ipratropium (Albuterol/Iprat 2.5/0.5mg 3 Ml Ampul.Neb) 3 ml INHALE RQ4H PRN PRN Reason: Wheezing Last Admin: 01/31/22 13:21 Dose: 3 ml Documented By: RAMESH Albuterol/Ipratropium (Albuterol/Iprat 2.5/0.5mg 3 Ml Ampul.Neb) 3 ml INHALE BID [facility] Last Admin: 02/01/22 07:41 Dose: 3 ml Documented By: MK Enoxaparin Sodium (Enoxaparin Sodium 30 Mg/0.3 Ml Syringe) 30 mg SUBCUT Q24H [facility] Last Admin: 02/01/22 09:24 Dose: 30 mg Documented By: GARCIA Erythromycin (Erythromycin Base 250 Mg Tablet) 250 mg PO Q8H [facility] Last Admin: 02/01/22 10:24 Dose: 250 mg Documented By: GARCIA Fluticasone/Vilanterol (Fluticasone/Vilanterol 200/25 Blst.W.Dev) 1 puff INHALE RDAILY [facility] Last Admin: 02/01/22 07:51 Dose: 1 puff Documented By: MK Furosemide (Furosemide 40 Mg Tablet) 40 mg PO DAILY [facility]; Protocol Last Admin: 02/01/22 08:27 Dose: 40 mg Documented By: GARCIA Hydromorphone HCl (Hydromorphone Hcl 0.5 Mg/0.5 Ml Syringe) 0.75 mg IVPUSH Q4H PRN; Protocol PRN Reason: Pain, Severe (Pain Scale 7-10) Last Admin: 01/29/22 18:38 Dose: 0.75 mg Documented By: RANDY Insulin Glargine (Insulin Glargine,Hum.Rec.Anlog 100 Unit/Ml 10 Ml Vial) 20 unit SUBCUT DAILY [facility] Last Admin: 02/01/22 08:27 Dose: Not Given Documented By: GARCIA Non-Admin Reason: See Note Comments: not given sugar in the 70's Insulin Human Lispro (Insulin Lispro 100 Unit/Ml 3 Ml Vial) 0 unit SUBCUT QIDACHS [facility]; Protocol Last Admin: 02/01/22 11:38 Dose: Not Given Documented By: GARCIA Non-Admin Reason: No Insulin Coverage Insulin Human Lispro (Insulin Lispro 100 Unit/Ml 3 Ml Vial) 5 unit SUBCUT QIDACHS [facility] Last Admin: 02/01/22 11:42 Dose: Not Given Documented By: GARCIA Non-Admin Reason: No Insulin Coverage Levothyroxine Sodium (Levothyroxine Sodium 75 Mcg Tablet) 75 mcg PO DAILY@0600 [facility] Last Admin: 02/01/22 05:27 Dose: 75 mcg Documented By: ANTOIC Mirabegron (Mirabegron 25 Mg Tab.Er.24h) 25 mg PO DAILY [facility] Last Admin: 02/01/22 08:27 Dose: 25 mg Documented By: GARCIA Omeprazole (Omeprazole 20 Mg Capsule.Dr) 20 mg PO DAILY@0630 [facility] Last Admin: 01/19/22 05:20 Dose: 20 mg Documented By: KENNEDY Ondansetron HCl (Ondansetron Hcl 4 Mg/2 Ml Vial) 4 mg IVPUSH Q8H PRN PRN Reason: Nausea and Vomiting Last Admin: 01/29/22 10:26 Dose: 4 mg Documented By: JANELL Comments: PER MD ARRIETA. GIVE NOW Sodium Chloride (0.9 % Sodium Chloride Flush 3 Ml Syringe) 3 ml IVFLUSH QSHIFT [facility] Last Admin: 02/01/22 08:28 Dose: 3 ml Documented By: GARCIA Labs CBC & Chem 7: 01/22/22 09:02 02/01/22 06:28 Labs: Laboratory Results - last 24 hr 01/31/22 01/31/22 02/01/22 16:17 19:34 06:28 Anion Gap 17 Estim Creat Clear Calc 87.2 Estimated GFR > 60 POC Glucose 105 75 Random Glucose 80 Calcium 7.9 L 02/01/22 02/01/22 07:24 11:16 Anion Gap Estim Creat Clear Calc Estimated GFR POC Glucose 77 120 H Random Glucose Calcium Assessment and Plan (1) Ileus: Status: Acute (2) Hypoventilation: Status: Acute (3) Atelectasis: Status: Acute (4) Acute hypoxemic respiratory failure: Status: Acute Plan 76 year old female with history of mild persistent asthma, hypothyroidism, gerd, hiatal hernia, bilateral calcific tendonitis, and urge incontinence admitted for choledocholithiais and now with post ECRCP pancreatitis, DONNIE and aspiration pneumonia. 1- Cholechodocholithiasis, s/p? ERCP? on 01/17 complicated by post op pancreatitis resolved,CCY to be planned as per General surgery 2. Acute post ECRCP pancreaitis/ Ileus - on clear liquid diet tolerating well no recurrent nausea vomiting in last 48 hours,s/p TPN stopped on 01/31 NG tube removed on 01/27, KUB showed mild adynamic ileus no free intraperitoneal air, continue erythromycin 250 mg q.8 hours for possible gastroparesis strongly recommended out of bed to chair advance diet to full liquids. 3. Hypocalcemia d/t saponificatiion from pancreatitis,? calcium improved to 7.9, normal with corrected albumin, status post calcium replacment 4. Aspiration pneumonia--Has completed 7 days of Cefepim, afebrile and WBC improved 5. acute hypoxemic respiratory failure possible mulifactorial : copd/ positive fluid balance/ atelectasis feeling better less congested on 3 L with stable oxygenation chest x-ray 01/30 showed right basilar opacity with differential of fluid /atelectasis/ infiltrate or effusion at right base cont DuoNeb treatment b.i.d. cont. Lasix 40 mg daily, encourage incentive spirometry. ? ?wean off O2 as tolerated,echo showed normal EF no evidence of all motion abnormality and normal diastolic function 6-Acute UTI-- status post 7 days of antibiotics,negative culture 3-Hypothyroidism- stable, Continue levothyroxine 4-GERD- stable - continue Prilosec,EGD 07/01 with strictures with balloon dilitation 6. DONNIE --likely? pre renal resolved s/p IV fluids 7. Diabetes with Hyperglycemia--on Lantus 20 daily,? pre meal insulin 5 u qid and SSI-- on full liquid diet DVT prophylaxis- lovenox ?Need for inpatient:? patient need continued inpatient hospitalization since on clear liquids related to ileus and post ERCP pancreatitis,?and persistent acute hypoxic respiratory failure. ? Quality Stroke Does the patient have a stroke diagnosis?: No VTE Prior VTE?: No VTE Risk Level:: Medical - moderate - high VTE Device Contraindication: Treatment Not Indicated VTE Drug Contraindication: N/A - Med Ordered
[2022-02-01 15:51] LABS: Glucose, Whole Blood 104 mg/dL (60-115)
[2022-02-01] MEDS: Lactated Ringers 1,000 ML 100 ML IVCONT (16:03)
[2022-02-01 16:45] LABS: Glucose, Whole Blood 89 mg/dL (60-115)
[2022-02-01 20:00] LABS: Glucose, Whole Blood 92 mg/dL (60-115)
[2022-02-01] MEDS: HYDROmorphone HCl 0.5 MG/0.5 ML SYRINGE 0.75 MG IVPUSH (23:20)
[2022-02-02] VITALS (8 sets, daily range): BP systolic 100–141; BP diastolic 55–83; PULSE 92–101; RESP 17–20; TEMP 36.1–36.7; O2SAT 88–100
[2022-02-02] MEDS: Levothyroxine Sodium 75 MCG TABLET PO (06:32)
[2022-02-02 07:02] LABS: Anion Gap 18 (12-20); Blood Urea Nitrogen 12 mg/dL (9-16); Calcium 8.1 mg/dL (8.4-10.2); Carbon Dioxide 27 mmol/L (22-29); Chloride 98 mmol/L (96-108); Creatinine Clr Calc Pharmacy 79.1; Estimated Glomerular Filt Rate > 60; Glucose Random 82 mg/dL (60-115); Potassium 4.5 mmol/L (3.3-5.1); Sodium 138 mmol/L (135-145)
[2022-02-02 07:50] LABS: Glucose, Whole Blood 76 mg/dL (60-115)
[2022-02-02] MEDS: Albuterol/Iprat 2.5/0.5MG 3 ML AMPUL.NEB INHALE ×2 (07:58→20:27)
[2022-02-02] MEDS: Fluticasone/Vilanterol 200/25 BLST.W.DEV 1 PUFF INHALE (08:09)
[2022-02-02] MEDS: Mirabegron 25 MG TAB.ER.24H PO (09:06)
[2022-02-02] MEDS: Furosemide 40 MG TABLET PO (09:06)
[2022-02-02] MEDS: Enoxaparin Sodium 30 MG/0.3 ML SYRINGE SUBCUT (09:06)
[2022-02-02] MEDS: 0.9 % Sodium Chloride Flush 3 ML SYRINGE IVFLUSH ×3 (09:16→21:39)
--- NOTE | 2022-02-02 09:16 | PM.PNGS ---
Subjective Subjective Date of Service: 02/02/22 Interval history: Has had no vomiting Seems to have been tolerating liquids Has BMs, flatus Physical Exam Vital Signs: Vital Signs: Last Vital Signs Temp 97.8 F 02/02/22 08:00 Pulse 92 02/02/22 08:00 Resp 18 02/02/22 08:00 BP 129/70 02/02/22 08:00 Pulse Ox 99 02/02/22 08:00 O2 Del Method BiPAP 02/02/22 08:00 O2 Flow Rate 3 02/01/22 11:17 BMI result Body Mass Index 37.8 Const: General: no acute distress Resp: Effort & Inspection: normal respiratory effort Cardio: Rate: regular rate GI: Palpation (GI): Soft to palpation, not firm and nontender Objective Data Active Medications Acetaminophen (Acetaminophen Supp 650 Mg Supp.Rect) 650 mg MS Q6H PRN PRN Reason: Fever Albuterol/Ipratropium (Albuterol/Iprat 2.5/0.5mg 3 Ml Ampul.Neb) 3 ml INHALE RQ4H PRN PRN Reason: Wheezing Last Admin: 01/31/22 13:21 Dose: 3 ml Documented By: RAMESH Albuterol/Ipratropium (Albuterol/Iprat 2.5/0.5mg 3 Ml Ampul.Neb) 3 ml INHALE [facility] Last Admin: 02/02/22 07:58 Dose: 3 ml Documented By: MK Enoxaparin Sodium (Enoxaparin Sodium 30 Mg/0.3 Ml Syringe) 30 mg SUBCUT Q24H [facility] Last Admin: 02/02/22 09:06 Dose: 30 mg Documented By: GARCIA Fluticasone/Vilanterol (Fluticasone/Vilanterol 200/25 Blst.W.Dev) 1 puff INHALE RDAILY [facility] Last Admin: 02/02/22 08:09 Dose: 1 puff Documented By: MK Furosemide (Furosemide 40 Mg Tablet) 40 mg PO DAILY [facility]; Protocol Last Admin: 02/02/22 09:06 Dose: 40 mg Documented By: GARCIA Insulin Human Lispro (Insulin Lispro 100 Unit/Ml 3 Ml Vial) 0 unit SUBCUT QIDACHS [facility]; Protocol Last Admin: 02/02/22 07:54 Dose: Not Given Documented By: GARCIA Non-Admin Reason: No Insulin Coverage Levothyroxine Sodium (Levothyroxine Sodium 75 Mcg Tablet) 75 mcg PO DAILY@0600 [facility] Last Admin: 02/02/22 06:32 Dose: 75 mcg Documented By: AURELIA Mirabegron (Mirabegron 25 Mg Tab.Er.24h) 25 mg PO DAILY [facility] Last Admin: 02/02/22 09:06 Dose: 25 mg Documented By: GARCIA Omeprazole (Omeprazole 20 Mg Capsule.Dr) 20 mg PO DAILY@0630 [facility] Last Admin: 01/19/22 05:20 Dose: 20 mg Documented By: KENNEDY Ondansetron HCl (Ondansetron Hcl 4 Mg/2 Ml Vial) 4 mg IVPUSH Q8H PRN PRN Reason: Nausea and Vomiting Last Admin: 01/29/22 10:26 Dose: 4 mg Documented By: JANELL Comments: PER MD ARRIETA. GIVE NOW Sodium Chloride (0.9 % Sodium Chloride Flush 3 Ml Syringe) 3 ml IVFLUSH QSHIFT [facility] Last Admin: 02/02/22 09:16 Dose: 3 ml Documented By: GARCIA Labs CBC & Chem 7: 01/22/22 09:02 02/02/22 05:45 Labs: Laboratory Results - last 24 hr 02/01/22 02/01/22 02/01/22 11:16 15:47 16:38 Anion Gap Estim Creat Clear Calc Estimated GFR POC Glucose 120 H 104 89 Random Glucose Calcium 02/01/22 02/02/22 02/02/22 19:56 05:45 07:28 Anion Gap 18 Estim Creat Clear Calc 79.1 Estimated GFR > 60 POC Glucose 92 76 Random Glucose 82 Calcium 8.1 L Procedures Date of Service Date of Service: 02/02/22 Progress Note: A&P Assessment and plan (1) Ileus: Status: Acute Assessment and Plan: Had post ERCP pancreatitis and ileus Symptoms clinically resolved Abdomen soft Has had BMs and flatus Okay to slowly advance diet Emphasized to patient she needs to get out of bed more Physical therapy Time Spent With Patient Time: Total time spent is greater than 50% in coordination of care (as documented) at patient's floor/unit and/or counseling patient: Quality Stroke Does the patient have a stroke diagnosis?: No VTE Prior VTE?: No VTE Risk Level:: Medical - moderate - high VTE Device Contraindication: Treatment Not Indicated VTE Drug Contraindication: N/A - Med Ordered
[2022-02-02 11:24] LABS: Glucose, Whole Blood 109 mg/dL (60-115)
--- NOTE | 2022-02-02 14:28 | P.PNIM_ITS ---
Subjective Subjective Date of Service: 02/02/22 Interval History: Feeling better this morning denies abdominal pain, no nausea no vomiting tolerating full liquid diet passing flatus had 2 stools yesterday, no acute issues overnight, no shortness of breath, no cough. Review of Systems [employer] no headache no dizziness CVS no chest pain no urinary urgency, no frequency Review of Systems: Yes all other systems are reviewed and are negative Physical Exam Vital Signs: Vital Signs: Last Vital Signs Temp 98.1 F 02/02/22 11:23 Pulse 97 02/02/22 11:23 Resp 18 02/02/22 11:23 BP 100/55 L 02/02/22 11:23 Pulse Ox 91 L 02/02/22 11:23 O2 Del Method 02/02/22 11:23 O2 Flow Rate 3 02/01/22 11:17 BMI result Body Mass Index 37.8 Const: Other: General ?Awake mallorie rt, no acute distr ess.? Neck supple no JVD. CVS? regul ar rate rhythm, Re spiratory lungs? c oarse breath sound , no respiratory d istress no use of accessory muscles, no crackles. Aidan rointestinal abdom en?obese,soft, bow el sounds audible, no guarding , no rigidity. Extremit ies no edema. Neur o nonfocal Skin no rash psych approp riate affect Objective Data Active Medications Acetaminophen (Acetaminophen Supp 650 Mg Supp.Rect) 650 mg [place] Q6H PRN PRN Reason: Fever Albuterol/Ipratropium (Albuterol/Iprat 2.5/0.5mg 3 Ml Ampul.Neb) 3 ml INHALE RQ4H PRN PRN Reason: Wheezing Last Admin: 01/31/22 13:21 Dose: 3 ml Documented By: RAMESH Albuterol/Ipratropium (Albuterol/Iprat 2.5/0.5mg 3 Ml Ampul.Neb) 3 ml INHALE RBID [facility] Last Admin: 02/02/22 07:58 Dose: 3 ml Documented By: MK Enoxaparin Sodium (Enoxaparin Sodium 30 Mg/0.3 Ml Syringe) 30 mg SUBCUT Q24H [facility] Last Admin: 02/02/22 09:06 Dose: 30 mg Documented By: GARCIA Fluticasone/Vilanterol (Fluticasone/Vilanterol 200/25 Blst.W.Dev) 1 puff INHALE RDAILY [facility] Last Admin: 02/02/22 08:09 Dose: 1 puff Documented By: MK Furosemide (Furosemide 40 Mg Tablet) 40 mg PO DAILY [facility]; Protocol Last Admin: 02/02/22 09:06 Dose: 40 mg Documented By: GARCIA Insulin Human Lispro (Insulin Lispro 100 Unit/Ml 3 Ml Vial) 0 unit SUBCUT QIDACHS [facility]; Protocol Last Admin: 02/02/22 11:32 Dose: Not Given Documented By: GARCIA Non-Admin Reason: No Insulin Coverage Levothyroxine Sodium (Levothyroxine Sodium 75 Mcg Tablet) 75 mcg PO DAILY@0600 [facility] Last Admin: 02/02/22 06:32 Dose: 75 mcg Documented By: AURELIA Mirabegron (Mirabegron 25 Mg Tab.Er.24h) 25 mg PO DAILY [facility] Last Admin: 02/02/22 09:06 Dose: 25 mg Documented By: GARCIA Omeprazole (Omeprazole 20 Mg Capsule.Dr) 20 mg PO DAILY@0630 [facility] Last Admin: 01/19/22 05:20 Dose: 20 mg Documented By: KENNEDY Ondansetron HCl (Ondansetron Hcl 4 Mg/2 Ml Vial) 4 mg IVPUSH Q8H PRN PRN Reason: Nausea and Vomiting Last Admin: 01/29/22 10:26 Dose: 4 mg Documented By: JANELL Comments: PER MD ARRIETA. GIVE NOW Sodium Chloride (0.9 % Sodium Chloride Flush 3 Ml Syringe) 3 ml IVFLUSH QSHIFT [facility] Last Admin: 02/02/22 09:16 Dose: 3 ml Documented By: GARCIA Labs CBC & Chem 7: 01/22/22 09:02 02/02/22 05:45 Labs: Laboratory Results - last 24 hr 02/01/22 02/01/22 02/01/22 15:47 16:38 19:56 Anion Gap Estim Creat Clear Calc Estimated GFR POC Glucose 104 89 92 Random Glucose Calcium 02/02/22 02/02/22 02/02/22 05:45 07:28 11:08 Anion Gap 18 Estim Creat Clear Calc 79.1 Estimated GFR > 60 POC Glucose 76 109 Random Glucose 82 Calcium 8.1 L Assessment and Plan (1) Ileus: Status: Acute (2) Hypoventilation: Status: Acute (3) Atelectasis: Status: Acute (4) Acute hypoxemic respiratory failure: Status: Acute Plan 76 year old female with history of mild persistent asthma, hypothyroidism, gerd, hiatal hernia, bilateral calcific tendonitis, and urge incontinence admitted for choledocholithiais and now with post ECRCP pancreatitis, DONNIE and aspiration pneumonia. 1- Cholechodocholithiasis, s/p? ERCP? on 01/17 complicated by post op pancreatitis /ileus resolved,CCY to be planned as per General surgery 2. Acute post ECRCP pancreaitis/ Ileus - on full liquid diet tolerating well no recurrent nausea vomiting in last 72 hours,s/p TPN stopped on 01/31 NG tube removed on 01/27, KUB showed mild adynamic ileus no free intraperitoneal air, strongly recommended out of bed to chair,obtain PT eval advance diet to diabetic/ low fat 3. Hypocalcemia d/t saponificatiion from pancreatitis,? calcium improved to 7.9, normal with corrected albumin, status post calcium replacment 4. Aspiration pneumonia--Has completed 7 days of Cefepim, afebrile and WBC improved 5. acute hypoxemic respiratory failure possible mulifactorial : Resolved likley due to copd/ positive fluid balance/ atelectasis feeling better less congested 91% on room air this morning chest x-ray 01/30 showed right basilar opacity with differential of fluid /atelectasis/ infiltrate or effusion at right base cont DuoNeb treatment b.i.d. DC Lasix 40 mg daily due to soft BP, encourage incentive spirometry. ? ?echo showed normal EF no evidence of all motion abnormality and normal diastolic function 6-Acute UTI-- status post 7 days of antibiotics,negative culture 3-Hypothyroidism- stable, Continue levothyroxine 4-GERD- stable - continue Prilosec,EGD 07/01 with strictures with balloon dilitation 6. DONNIE --likely? pre renal resolved s/p IV fluids 7.new onset Diabetes: hbaic 7.3 on 01/14 , Hyperglycemia resolved was likely secondary to acute pancreatitis was treated with Lantus , pre meal insulin and insulin sliding scale now noted to have low blood sugars will DC Lantus and pre meal insulin follow blood sugars possible metformin upon discharge DVT prophylaxis- lovenox ?Need for inpatient:? patient need continued inpatient hospitalization since on full liquids diet will advance gradually follow closely for hypoxia generalized weakness obtain PT eval. ? Quality Stroke Does the patient have a stroke diagnosis?: No VTE Prior VTE?: No VTE Risk Level:: Medical - moderate - high VTE Device Contraindication: Treatment Not Indicated VTE Drug Contraindication: N/A - Med Ordered
[2022-02-02 16:20] LABS: Glucose, Whole Blood 121 mg/dL (60-115)
[2022-02-02 20:08] LABS: Glucose, Whole Blood 134 mg/dL (60-115)
[2022-02-02] MEDS: Throat Lozenge, Medicated LOZENGE 1 LOZENGE MUCOUS MEM (21:37)
[2022-02-03 03:31] VITALS: BP 136/78; PULSE 95; RESP 19; TEMP 37.2; O2SAT 93
[2022-02-03] MEDS: Levothyroxine Sodium 75 MCG TABLET PO (05:24)
[2022-02-03] MEDS: Albuterol/Iprat 2.5/0.5MG 3 ML AMPUL.NEB INHALE ×2 (05:46→07:26)
[2022-02-03 05:48] VITALS: PULSE 94; RESP 19; O2SAT 94
[2022-02-03 06:20] LABS: Anion Gap 19 (12-20); Blood Urea Nitrogen 10 mg/dL (9-16); Calcium 8.1 mg/dL (8.4-10.2); Carbon Dioxide 24 mmol/L (22-29); Chloride 97 mmol/L (96-108); Creatinine Clr Calc Pharmacy 80.3; Estimated Glomerular Filt Rate > 60; Glucose Random 119 mg/dL (60-115); Potassium 4.1 mmol/L (3.3-5.1); Sodium 136 mmol/L (135-145)
[2022-02-03 07:10] VITALS: BP 135/74; PULSE 100; RESP 20; TEMP 36.6; O2SAT 95
[2022-02-03 07:27] VITALS: PULSE 102; RESP 18; O2SAT 91
[2022-02-03] MEDS: Fluticasone/Vilanterol 200/25 BLST.W.DEV 1 PUFF INHALE (07:27)
--- NOTE | 2022-02-03 08:03 | PM.PNGS ---
Subjective Subjective Date of Service: 02/07/22 Interval history: denies abdl pain has been getting OOB to recliner has flatus, BMs Physical Exam Vital Signs: Vital Signs: Last Vital Signs Temp 97.8 F 02/03/22 07:10 Pulse 102 H 02/03/22 07:27 Resp 18 02/03/22 07:27 BP 135/74 02/03/22 07:10 Pulse Ox 95 02/03/22 07:10 O2 Del Method 02/03/22 07:10 O2 Flow Rate 1 02/03/22 07:10 BMI result Body Mass Index 37.8 Const: General: comfortable and no acute distress Resp: Effort & Inspection: normal respiratory effort Cardio: Rhythm: regular rhythm GI: Other: protruberant, obese but soft Palpation (GI): nontender and no guarding Objective Data Active Medications Acetaminophen (Acetaminophen Supp 650 Mg Supp.Rect) 650 mg [place] Q6H PRN PRN Reason: Fever Albuterol/Ipratropium (Albuterol/Iprat 2.5/0.5mg 3 Ml Ampul.Neb) 3 ml INHALE RQ4H PRN PRN Reason: Wheezing Last Admin: 02/03/22 07:26 Dose: 3 ml Documented By: CEZAR Albuterol/Ipratropium (Albuterol/Iprat 2.5/0.5mg 3 Ml Ampul.Neb) 3 ml INHALE RBID [facility] Last Admin: 02/03/22 05:46 Dose: 3 ml Documented By: DANIELLE Benzocaine (Throat Lozenge, Medicated Lozenge) 1 lozenge MUCOUS MEM Q2H PRN PRN Reason: Sore Throat Last Admin: 02/02/22 21:37 Dose: 1 lozenge Documented By: MISA Enoxaparin Sodium (Enoxaparin Sodium 30 Mg/0.3 Ml Syringe) 30 mg SUBCUT Q24H [facility] Last Admin: 02/02/22 09:06 Dose: 30 mg Documented By: GARCIA Fluticasone/Vilanterol (Fluticasone/Vilanterol 200/25 Blst.W.Dev) 1 puff INHALE RDAILY [facility] Last Admin: 02/03/22 07:27 Dose: 1 puff Documented By: HO.RONCARR Insulin Human Lispro (Insulin Lispro 100 Unit/Ml 3 Ml Vial) 0 unit SUBCUT QIDACHS [facility]; Protocol Last Admin: 02/02/22 21:27 Dose: Not Given Documented By: MISA Non-Admin Reason: No Insulin Coverage Levothyroxine Sodium (Levothyroxine Sodium 75 Mcg Tablet) 75 mcg PO DAILY@0600 [facility] Last Admin: 02/03/22 05:24 Dose: 75 mcg Documented By: MISA Mirabegron (Mirabegron 25 Mg Tab.Er.24h) 25 mg PO DAILY [facility] Last Admin: 02/02/22 09:06 Dose: 25 mg Documented By: GARCIA Omeprazole (Omeprazole 20 Mg Capsule.) 20 mg PO DAILY@0630 [facility] Last Admin: 01/19/22 05:20 Dose: 20 mg Documented By: KENNEDY Ondansetron HCl (Ondansetron Hcl 4 Mg/2 Ml Vial) 4 mg IVPUSH Q8H PRN PRN Reason: Nausea and Vomiting Last Admin: 01/29/22 10:26 Dose: 4 mg Documented By: JANELL Comments: PER MD ARRIETA. GIVE NOW Sodium Chloride (0.9 % Sodium Chloride Flush 3 Ml Syringe) 3 ml IVFLUSH QSHIFT [facility] Last Admin: 02/02/22 21:39 Dose: 3 ml Documented By: MISA Labs CBC & Chem 7: 01/22/22 09:02 02/03/22 05:46 Labs: Laboratory Results - last 24 hr 02/02/22 02/02/22 02/02/22 11:08 16:16 20:05 Anion Gap Estim Creat Clear Calc Estimated GFR POC Glucose 109 121 H 134 H Random Glucose Calcium 02/03/22 05:46 Anion Gap 19 Estim Creat Clear Calc 80.3 Estimated GFR > 60 POC Glucose Random Glucose 119 H Calcium 8.1 L Procedures Date of Service Date of Service: 02/03/22 Progress Note: A&P Assessment and plan (1) Ileus: Status: Acute Assessment and Plan: clinically resolved diet as tolerated encouraged OOB, ambulation Physical therapy looks well has other medical issues as well Time Spent With Patient Time: Total time spent is greater than 50% in coordination of care (as documented) at patient's floor/unit and/or counseling patient: Quality Stroke Does the patient have a stroke diagnosis?: No VTE Prior VTE?: No VTE Risk Level:: Medical - moderate - high VTE Device Contraindication: Treatment Not Indicated VTE Drug Contraindication: N/A - Med Ordered
[2022-02-03 08:06] LABS: Glucose, Whole Blood 128 mg/dL (60-115)
[2022-02-03] MEDS: Mirabegron 25 MG TAB.ER.24H PO (08:09)
[2022-02-03] MEDS: 0.9 % Sodium Chloride Flush 3 ML SYRINGE IVFLUSH (08:10)
[2022-02-03] MEDS: Enoxaparin Sodium 30 MG/0.3 ML SYRINGE SUBCUT (08:10)
[2022-02-03 09:09] LABS: Alanine Aminotransferase 20 U/L (0-31); Albumin Level 2.9 g/dL (3.5-5.0); Alkaline Phosphatase 150 U/L (39-117); Aspartate Amino Transferase 30 U/L (5-31); Bilirubin Direct 0.3 mg/dL (0.0-0.5); Bilirubin Total 0.4 mg/dL (0.0-1.0); Total Protein 5.5 g/dL (6.5-8.0)
[2022-02-03 11:21] VITALS: BP 128/68; PULSE 93; RESP 18; TEMP 37.1; O2SAT 92
[2022-02-03 11:31] LABS: Glucose, Whole Blood 149 mg/dL (60-115)
--- NOTE | 2022-02-03 12:30 | P.PNIM_ITS ---
Subjective Subjective Date of Service: 02/03/22 Interval History: tolerating solid diet and having BMs no abd pain/N/V generalized weakness Review of Systems Review of Systems: Yes all other systems are reviewed and are negative Physical Exam Vital Signs: Vital Signs: Last Vital Signs Temp 98.7 F 02/03/22 11:21 Pulse 93 02/03/22 11:21 Resp 18 02/03/22 11:21 BP 128/68 02/03/22 11:21 Pulse Ox 92 02/03/22 11:21 O2 Del Method 02/03/22 11:21 O2 Flow Rate 1 02/03/22 11:21 BMI result Body Mass Index 37.8 Gen: in no acute distress HEENT: sclera anicteric, moist mucus membranes Neck: supple Lungs: scattered inspiratory crackles, no resp distress Heart: regular rate and rhythm, no murmurs Abd: soft, non-tender, non-distended, obese Ext: no edema Skin: warm/well-perfused Neuro: alert and oriented x3, no focal findings Psych: appropriate affect Objective Data Active Medications Acetaminophen (Acetaminophen Supp 650 Mg Supp.Rect) 650 mg [place] Q6H PRN PRN Reason: Fever Albuterol/Ipratropium (Albuterol/Iprat 2.5/0.5mg 3 Ml Ampul.Neb) 3 ml INHALE RQ4H PRN PRN Reason: Wheezing Last Admin: 02/03/22 07:26 Dose: 3 ml Documented By: CEZAR Albuterol/Ipratropium (Albuterol/Iprat 2.5/0.5mg 3 Ml Ampul.Neb) 3 ml INHALE RBID [facility] Last Admin: 02/03/22 05:46 Dose: 3 ml Documented By: DANIELLE Benzocaine (Throat Lozenge, Medicated Lozenge) 1 lozenge MUCOUS MEM Q2H PRN PRN Reason: Sore Throat Last Admin: 02/02/22 21:37 Dose: 1 lozenge Documented By: MISA Enoxaparin Sodium (Enoxaparin Sodium 30 Mg/0.3 Ml Syringe) 30 mg SUBCUT Q24H [facility] Last Admin: 02/03/22 08:10 Dose: 30 mg Documented By: AMAURI Fluticasone/Vilanterol (Fluticasone/Vilanterol 200/25 Blst.W.Dev) 1 puff INHALE RDAILY [facility] Last Admin: 02/03/22 07:27 Dose: 1 puff Documented By: CEZAR Insulin Human Lispro (Insulin Lispro 100 Unit/Ml 3 Ml Vial) 0 unit SUBCUT QIDACHS [facility]; Protocol Last Admin: 02/03/22 08:18 Dose: Not Given Documented By: AMAURI Non-Admin Reason: No Insulin Coverage Levothyroxine Sodium (Levothyroxine Sodium 75 Mcg Tablet) 75 mcg PO DAILY@0600 [facility] Last Admin: 02/03/22 05:24 Dose: 75 mcg Documented By: CHIDIUMFRANCK Mirabegron (Mirabegron 25 Mg Tab.Er.24h) 25 mg PO DAILY [facility] Last Admin: 02/03/22 08:09 Dose: 25 mg Documented By: AMAURI Omeprazole (Omeprazole 20 Mg Capsule.Dr) 20 mg PO DAILY@0630 [facility] Last Admin: 01/19/22 05:20 Dose: 20 mg Documented By: KENNEDY Ondansetron HCl (Ondansetron Hcl 4 Mg/2 Ml Vial) 4 mg IVPUSH Q8H PRN PRN Reason: Nausea and Vomiting Last Admin: 01/29/22 10:26 Dose: 4 mg Documented By: JANELL Comments: PER MD ARRIETA. GIVE NOW Sodium Chloride (0.9 % Sodium Chloride Flush 3 Ml Syringe) 3 ml IVFLUSH QSHIFT [facility] Last Admin: 02/03/22 08:10 Dose: 3 ml Documented By: AMAURI Labs CBC & Chem 7: 01/22/22 09:02 02/03/22 05:46 Labs: Laboratory Results - last 24 hr 02/02/22 02/02/22 02/03/22 16:16 20:05 05:46 Anion Gap 19 Estim Creat Clear Calc 80.3 Estimated GFR > 60 POC Glucose 121 H 134 H Random Glucose 119 H Calcium 8.1 L Total Bilirubin 0.4 Direct Bilirubin 0.3 AST 30 D ALT 20 Alkaline Phosphatase 150 H D Total Protein 5.5 L Albumin 2.9 L 02/03/22 02/03/22 07:12 11:27 Anion Gap Estim Creat Clear Calc Estimated GFR POC Glucose 128 H 149 H Random Glucose Calcium Total Bilirubin Direct Bilirubin AST ALT Alkaline Phosphatase Total Protein Albumin Assessment and Plan (1) Ileus: Status: Acute (2) Hypoventilation: Status: Acute (3) Atelectasis: Status: Acute (4) Acute hypoxemic respiratory failure: Status: Acute Plan 76 year old female with history of mild persistent asthma, hypothyroidism, gerd, hiatal hernia, bilateral calcific tendonitis, and urge incontinence admitted for choledocholithiais and now with post ECRCP pancreatitis, DONNIE and aspiration pneumonia. 1- Cholechodocholithiasis, s/p? ERCP? on 01/17 complicated by post op pancreatitis /ileus resolved,CCY to be planned as per General surgery 2. Acute post ECRCP pancreaitis/ Ileus - on full liquid diet tolerating well no recurrent nausea vomiting in last 72 hours,s/p TPN stopped on 01/31 NG tube removed on 01/27, KUB showed mild adynamic ileus no free intraperitoneal air, strongly recommended out of bed to chair,obtain PT eval advance diet to diabetic/ low fat 3. Hypocalcemia d/t saponificatiion from pancreatitis,? calcium improved to 7.9, normal with corrected albumin, status post calcium replacment 4. Aspiration pneumonia--Has completed 7 days of Cefepim, afebrile and WBC improved 5. acute hypoxemic respiratory failure possible mulifactorial : Resolved likley due to copd/ positive fluid balance/ atelectasis feeling better less congested 91% on room air this morning chest x-ray 01/30 showed right basilar opacity with differential of fluid /atelectasis/ infiltrate or effusion at right base cont DuoNeb treatment b.i.d. DC Lasix 40 mg daily due to soft BP, encourage incentive spirometry. ? ?echo showed normal EF no evidence of all motion abnormality and normal diastolic function 6-Acute UTI-- status post 7 days of antibiotics,negative culture 3-Hypothyroidism- stable, Continue levothyroxine 4-GERD- stable - continue Prilosec,EGD 07/01 with strictures with balloon dilitation 6. DONNIE --likely? pre renal resolved s/p IV fluids 7.new onset Diabetes: hbaic 7.3 on 01/14 , Hyperglycemia resolved was likely secondary to acute pancreatitis was treated with Lantus , pre meal insulin and insulin sliding scale now noted to have low blood sugars will DC Lantus and pre meal insulin follow blood sugars possible metformin upon discharge DVT prophylaxis- lovenox ?Need for inpatient:? patient need continued inpatient hospitalization since on full liquids diet will advance gradually follow closely for hypoxia generalized weakness obtain PT eval. ? Quality Stroke Does the patient have a stroke diagnosis?: No VTE Prior VTE?: No VTE Risk Level:: Medical - moderate - high VTE Device Contraindication: Treatment Not Indicated VTE Drug Contraindication: N/A - Med Ordered
--- NOTE | 2022-02-03 13:07 | MHC.CM.PN ---
dgter notified of nakul he
--- NOTE | 2022-02-03 13:11 | P.DS_ITS ---
DS: Providers Provider Date of Service: 02/03/22 Date of admission: 01/15/22 16:14 Date of discharge: 02/03/22 Primary care physician: Shania Edmonds MD Consults: 01/15/22 09:10 Consult to General Surgery Routine Consulting Provider: Ephraim Ortega Reason for consultation: Biliary colic, elevated LFTs 01/15/22 16:27 Consult to Gastroenterology Routine Consulting Provider: Shiraz Zhao Reason for consultation: cholelithiasis, elevated LFTs Has provider been notified: No 01/20/22 08:25 Consult to Nephrology Routine Consulting Provider: Daniel Leong Reason for consultation: donnie Has provider been notified: No 01/20/22 08:32 Consult to Pulmonology Routine Consulting Provider: Yoli Moore Reason for consultation: Acute hypoxemic respiratory failure secondary to possible aspiration pneumo Has provider been notified: No 01/20/22 12:25 Consult to Critical Care Routine Consulting Provider: Mansoor Robb Reason for consultation: Level of care Has provider been notified: No DS: Diagnosis Discharge Diagnosis (1) Ileus: Status: Acute (2) Acute hypoxemic respiratory failure: Status: Acute (3) Choledocholithiasis: Status: Acute (4) Post-ERCP acute pancreatitis: Status: Acute (5) Aspiration pneumonia: Status: Acute (6) Moderate persistent asthma with (acute) exacerbation: Status: Acute (7) New onset type 2 diabetes mellitus: Status: Acute (8) Hypocalcemia: Status: Acute (9) Acute kidney injury: Status: Acute DS: Summary Hospital Course Hospital Course: from admission H+P by hospitalist LUCI Novak, 01/15/22: 76 year old female with history of mild persistent asthma, hypothyroidism, gerd, hiatal hernia, bilateral calcific tendonitis, and urge incontinence presented to the ED this am for evaluation of midline back pain x2 days progress to n/v and nonradiating RUQ pain. Patient is somewhat poor historian and history partially taken from daughter, Jessy who is her HCP. Chemistries significant elevated LFTs- AST 508, ALT 562, Alk phos 342, Total bili 3.1. No hx liver disease. US RUQ shows cholelithiaiss without cholecystitis or obstruction. UA shows nitrite positive urine, started on ceftriaxine, culture pending. No leukocytosis. Afebrile. Vitals stable. Pt denies etoh or illicit durg use. Currently reporting 5/10 pain ruq non radiation with nausea and vomiting x1. No hematemasis. No fevers, chills, dysuria, hematuria, increased urinary frequency, diarrhea, constipation, melena, hematochezia, sob, cp. 76 year old female with history of asthma, hypothyroidism, GERD, hiatal hernia, bilatearl calcific tendonitis, and urge incontinence admitted for choledocholithiasis. She underwent ERCP on 01/17 with sphincterotomy and removal of a 12mm stone. Occlusion cholangiogram showed multiple gallstones with no filling defect. Post-procedure, she developed pancreatitis complicated by ileus and hypocalcemia. She required NG tube placement and TPN but as the ileus resolved, the NGT was removed and her diet was advanced. Hypocalcemia required multiple rounds of IV calcium replacement and resolved as the pancreatitis resolved. Likewise, prerenal DONNIE resolved with IV fluid repletion. She also developed acute hypoxia due to atelectasis, aspiration pneumonia, and asthma exacerbation and was treated with antibiotics and nebulizer treatments. She was newly diagnosed with DM2 with A1c of 7.3 and managed with sliding scale insulin; she was discharged on metformin and diabetic diet. She was discharged to [facility] for [facility]-term rehailibation. She will need follow up with General Surgery to plan for outpatient cholecystectomy. Time Spent with Patient Time attestation: Total time spent providing and/or coordinating discharge services: Discharge coordination time: Greater than 30 minutes Quality: Safe Use of Opioids Does Pt have an Active Cancer Diagnosis on the Problem List?: No Quality: Stroke Does the patient have a stroke diagnosis?: No Physical Exam Vital Signs: Vital Signs: Last Vital Signs Temp 98.7 F 02/03/22 11:21 Pulse 93 02/03/22 11:21 Resp 18 02/03/22 11:21 BP 128/68 02/03/22 11:21 Pulse Ox 92 02/03/22 11:21 O2 Del Method 02/03/22 11:21 O2 Flow Rate 1 02/03/22 11:21 BMI result Body Mass Index 37.8 Gen: in no acute distress HEENT: sclera anicteric, moist mucus membranes Neck: supple Lungs: clear to auscultation bilaterally Heart: regular rate and rhythm, no murmurs Abd: soft, non-tender, non-distended, obese Ext: no edema Skin: warm/well-perfused Neuro: alert and oriented x3, no focal findings Psych: appropriate affect DS: Data Data Completed and Pending Completed studies during hospitalization [Text1]: Laboratory Results WBC 13.6 X10*3/uL (4.8-10.8) H 01/22/22 09:02 RBC 3.73 X10*6/uL (4.20-5.50) L 01/22/22 09:02 Hgb 10.3 g/dl (12.0-16.0) L 01/22/22 09:02 Hct 31.4 % (37.0-47.0) L 01/22/22 09:02 MCV 84.2 fL (80.0-98.0) 01/22/22 09:02 MCH 27.6 pg (27.0-33.0) 01/22/22 09:02 MCHC 32.8 g/dl (31.0-35.0) 01/22/22 09:02 RDW 14.7 % (11.0-16.0) 01/22/22 09:02 Plt Count 249 X10*3/uL (160-400) 01/22/22 09:02 MPV 11.1 fL (9.4-12.3) 01/22/22 09:02 Immature Gran % (Auto) 0.6 % (0.0-0.4) H 01/19/22 19:37 Neut % (Auto) 93.7 % (45-73) H 01/19/22 19:37 Lymph % (Auto) 1.8 % (20-40) L 01/19/22 19:37 Summers % (Auto) 3.6 % (2-11) 01/19/22 19:37 Eos % (Auto) 0.0 % (0-4) 01/19/22 19:37 Baso % (Auto) 0.3 % (0-2) 01/19/22 19:37 Lymph # (Auto) 0.5 X10*3/uL (1.2-4.9) L 01/19/22 19:37 Summers # (Auto) 1.0 X10*3/uL (0.1-1.2) 01/19/22 19:37 Eos # (Auto) 0.0 X10*3/uL (0.0-0.4) 01/19/22 19:37 Baso # (Auto) 0.1 X10*3/uL (0.0-0.2) 01/19/22 19:37 Abs Immat Gran (auto) 0.16 X10*3/uL (0.00-0.03) H 01/19/22 19:37 Absolute Neuts (auto) 25.7 x10*3/uL (2.0-8.3) H 01/19/22 19:37 Absolute Nucleated RBC 0.000 X10*3/uL (0.0-0.012) 01/22/22 09:02 Nucleated RBC % (auto) 0.0 /100WBC (0.0-0.2) 01/22/22 09:02 Smear Tech's Comments VERIFIED 01/19/22 19:37 VBG pH 7.36 (7.32-7.43) 01/20/22 09:57 VBG pCO2 34 mmHg 01/20/22 09:57 VBG pO2 70 mmHg 01/20/22 09:57 VBG HCO3 19 mmol/L (22-26) L 01/20/22 09:57 VBG O2 Saturation 92.0 % 01/20/22 09:57 VBG Base Excess -4.7 mmol/L 01/20/22 09:57 Sodium 136 mmol/L (135-145) 02/03/22 05:46 Potassium 4.1 mmol/L (3.3-5.1) 02/03/22 05:46 Chloride 97 mmol/L (96-108) 02/03/22 05:46 Carbon Dioxide 24 mmol/L (22-29) 02/03/22 05:46 Anion Gap 19 (12-20) 02/03/22 05:46 BUN 10 mg/dL (9-16) 02/03/22 05:46 Creatinine 0.63 mg/dL (0.5-1.4) 02/03/22 05:46 Estim Creat Clear Calc 80.3 02/03/22 05:46 Estimated GFR > 60 02/03/22 05:46 POC Glucose 149 mg/dL (60-115) H 09/26/22 11:27 Random Glucose 119 mg/dL (60-115) H 02/03/22 05:46 Estimat Average Glucose 163 mg/dL 01/14/22 22:56 Hemoglobin A1c % 7.3 % 01/14/22 22:56 Lactic Acid 1.3 mmol/L (0.5-2.0) 01/14/22 22:56 Calcium 8.1 mg/dL (8.4-10.2) L 02/03/22 05:46 Phosphorus 3.5 mg/dL (2.7-4.5) 01/30/22 06:01 Magnesium 1.8 mg/dL (1.6-2.6) 01/30/22 06:01 Total Bilirubin 0.4 mg/dL (0.0-1.0) 02/03/22 05:46 Direct Bilirubin 0.3 mg/dL (0.0-0.5) 02/03/22 05:46 AST 30 U/L (5-31) D 02/03/22 05:46 ALT 20 U/L (0-31) 02/03/22 05:46 Alkaline Phosphatase 150 U/L (39-117) H D 02/03/22 05:46 Total Creatine Kinase 21 U/L (26-140) L D 01/19/22 05:33 B-Natriuretic Peptide 53 pg/mL (<100) 01/20/22 02:01 Total Protein 5.5 g/dL (6.5-8.0) L 02/03/22 05:46 Albumin 2.9 g/dL (3.5-5.0) L 02/03/22 05:46 Triglycerides 111 mg/dL 01/29/22 06:46 Amylase 1107 U/L (28-100) H 01/19/22 05:33 Lipase 134 U/L (8-78) H 01/21/22 08:24 Urine Color Dark Yellow 01/21/22 06:20 Urine Appearance Cloudy 01/21/22 06:20 Urine pH 5.5 (5.0-9.0) 01/21/22 06:20 Ur Specific [place] 1.020 (1.005-1.025) 01/21/22 06:20 Urine Protein 100 (2+) mg/dL (Neg-Trace) H 01/21/22 06:20 Urine Glucose (UA) 250 mg/dL (Negative) H 01/21/22 06:20 Urine Ketones Trace mg/dL (Negative) 01/21/22 06:20 Urine Blood Moderate (2+) (Negative) H 01/21/22 06:20 Urine Nitrite Negative (Negative) 01/21/22 06:20 Ur Leukocyte Esterase Trace (Negative) H 01/21/22 06:20 Urine RBC >20 /HPF (0-2) H 01/21/22 06:20 Urine WBC 0-5 /HPF (0-5) 01/21/22 06:20 Ur Squamous Epith Cells 6-10 /HPF (0-2) 01/21/22 06:20 Calcium Oxalate Crystal Present 01/15/22 03:19 Other Crystals Present 01/16/22 15:39 Urine Bacteria None Seen (None Seen) 01/21/22 06:20 Hyaline Casts 3-5 /LPF (0-2) 01/21/22 06:20 Granular Casts Present 01/16/22 15:39 Urine Eosinophils % 0.0 % 01/21/22 06:20 Ur Random Sodium < 20.0 mmol/L 01/21/22 06:20 Ur Random Urea 915 mg/dL 01/21/22 06:20 Urine Creatinine 101.97 mg/dL 01/21/22 06:20 COVID-19 (ANEL) Negative (Negative) 01/14/22 22:56 COVID-19 Clin Com See Note 01/14/22 22:56 Impressions Abdomen Ultrasound 01/15/22 03:45 IMPRESSION: 1. Cholelithiasis without additional findings of cholecystitis. 2. Hepatic steatosis. Cholangiopancreatography MRI 01/16/22 09:15 IMPRESSION: Limited exam. Upper normal-size gallbladder. Multiple small gallstones. Small amount of pericholecystic fluid. Appearance is questionable for acute cholecystitis. This could be further evaluated with HIDA scan if clinically indicated. Normal caliber intra and extrahepatic bile ducts. No common bile duct stone seen. Slightly enlarged fatty liver. Findings will be communicated by the [place] work flow band bias machine operator. Guidance Fluoroscopy 01/17/22 13:40 IMPRESSION: 1. Multiple gallstones with contrast opacifying the gallbladder. 2. CBD, right and left hepatic ducts are opacified without any intraluminal filling defects seen. Venous Duplex 01/20/22 16:48 IMPRESSION: No DVT demonstrated in either lower extremity. Abdomen/Pelvis CT 01/21/22 10:15 IMPRESSION: New pancreatitis. Some fluid appears high in attenuation questionable for hemorrhagic pancreatitis. Dilated fluid-filled distal esophagus and stomach. Possible aspiration should be considered. Nasogastric tube may be helpful. Small bowel ileus. Diverticulosis of the colon. New small bilateral pleural effusions and right lower lobe atelectasis/pneumonia. Findings will be communicated by the [place] work flow band bias machine operator. Fleischner guidelines were followed. PICC Line Insertion 01/22/22 13:30 IMPRESSION: Successful ultrasound and fluoroscopy-guided placement of a single-lumen 5 Nepali dual PICC catheter. Fluoroscopy time 1.9 minutes. DAP: 20 cGycm2 KUB X-Ray 01/24/22 10:30 IMPRESSION: Probable ileus similar to 01/21/2022 CT. Abdomen X-Ray 01/29/22 10:35 IMPRESSION: Findings suggest a mild adynamic ileus. No free intraperitoneal air is noted. Consider radiographic follow-up to resolution Chest X-Ray 01/30/22 12:30 IMPRESSION: Findings similar to previous. Right basilar opacity may represent fluid and/or atelectasis/infiltrate or effusion. Minimal change at the left lung base. Discharge Plan Discharge Patient Disposition: [facility] Discharge Diagnosis: Cholechodocholithiasis Post-ERCP pancreatitis with ileus and hypocalcemia Acute hypoxia due to aspiration pneumonia New diagnosis of diabetes mellitus Asthma Referrals: brad erickson [Other] - 1 Week Ephraim Ortega MD [Physician] - 2 Weeks Shania Alberts MD [Primary Care Provider] - 1 Week Discharge Medications: New ipratropium-albuterol 0.5 mg-3 mg(2.5 mg base)/3 mL Solution For Nebulization 3 ml inhalation RQ4H PRN (Reason: Wheezing) Qty: 1 0RF fluticasone furoate-vilanterol [Breo Ellipta] 200-25 mcg/dose Blister With Device 1 ea inhalation RDAILY Qty: 60 0RF metformin 500 mg tablet 500 mg PO BID Qty: 60 0RF Continued levothyroxine 75 mcg tablet 1 tab PO DAILY fluticasone propionate [Flovent HFA] 44 mcg/actuation HFA aerosol inhaler 1 puff INHALATION BID omeprazole 20 mg capsule,delayed release(DR/EC) 1 cap PO DAILY Myrbetriq 25 mg tablet extended release 24 hr 1 tab PO DAILY Discharge Orders: Discharge Order (Routine); Ordered 02/03/22 Ordered By: Padmini Castelan Diet: Diabetic diet Activity on Discharge: As tolerated Stand Alone Forms: Patient Portal Discharge page Care Plan Goals: recovery from choledocholithiasis and pancreatitis control of hyperglycemia Health Concerns: Cholechodocholithiasis Post-ERCP pancreatitis with ileus and hypocalcemia Acute hypoxia due to aspiration pneumonia New diagnosis of diabetes mellitus Asthma Plan of Treatment: SNF for short-term rehabilitation Follow up with [facility] General Surgery in 2 weeks to discuss planning for cholecystectomy Low-fat diabetic diet Start metformin Also start inhalers for asthma Assessment: See Discharge Summary.
--- NOTE | 2022-02-03 13:17 | PC.NURSE ---
CT called and they cannot accommodate patient at this moment, transport on floor at the moment on standby.
[2022-02-03 13:59] LABS: COVID-19 Test Negative (Negative); IDNOW Serial# 16C4AD1C
[2022-02-03 14:39] VITALS: PULSE 85; RESP 20
== END 2022-02-03 16:31 | disposition skilled nursing facility (03) | DRG 444 ==
LOC: HO.ED 01-15 03:54 → HO.EDOVER 01-15 09:17 → HO.S3 01-16 17:11 → HO.IMC 01-20 11:39
PROVIDERS: Hospitalist; Internal Medicine; Internal Medicine Gastroenterology; Internal Medicine Nephrology; Physician Assistant; Radiology Diagnostic Radiology; Surgery; Admitting Provider Family Medicine; Emergency Provider Internal Medicine; PCP Internal Medicine; Visit Provider Family Medicine
PROC: 0F798ZZ Dilation of Common Bile Duct, Via Natural or Artificial Opening Endoscopic (ICD-10-PCS; CPT 43260; principal; 2022-01-17 11:00)
DX: K80.51 Calculus of bile duct without cholangitis or cholecystitis with obstruction (principal); G92.9 Unspecified toxic encephalopathy; K85.80 Other acute pancreatitis without necrosis or infection; J96.01 Acute respiratory failure with hypoxia; J69.0 Pneumonitis due to inhalation of food and vomit; E66.2 Morbid (severe) obesity with alveolar hypoventilation; K91.89 Other postprocedural complications and disorders of digestive system; N39.0 Urinary tract infection, site not specified; J98.11 Atelectasis; N17.9 Acute kidney failure, unspecified; K56.7 Ileus, unspecified; J45.31 Mild persistent asthma with (acute) exacerbation; Z20.822 Contact with and (suspected) exposure to COVID-19; Z68.37 Body mass index [BMI] 37.0-37.9, adult; E03.9 Hypothyroidism, unspecified; K21.9 Gastro-esophageal reflux disease without esophagitis; R31.9 Hematuria, unspecified; E83.51 Hypocalcemia; E83.42 Hypomagnesemia; E11.65 Type 2 diabetes mellitus with hyperglycemia; E86.0 Dehydration; E83.39 Other disorders of phosphorus metabolism; Z28.310 Unvaccinated for COVID-19; Z91.19 Patient's noncompliance with other medical treatment and regimen; Z88.0 Allergy status to penicillin; Z88.2 Allergy status to sulfonamides; Z88.5 Allergy status to narcotic agent; Z88.7 Allergy status to serum and vaccine; Z79.51 Long term (current) use of inhaled steroids; Z79.84 Long term (current) use of oral hypoglycemic drugs; Z79.890 Hormone replacement therapy; Z79.899 Other long term (current) drug therapy
CPT/HCPCS: 36415; 36573; 71045; 74018; 74176; 74181; 76705; 80048; 80053; 80076; 81001; 81003; 82040; 82150; 82248; 82550; 82803; 82947; 83036; 83605; 83690; 83735; 83880; 84100; 84300; 84478; 84540; 85025; 85027; 87086; 87635; 89190; 93005; 93306; 93970; 94640; 94664; 96361; 96374; 96375; 97110; 97116; 97162; 99285; C1751; C1758; C1769; J0610; J0692; J0696; J1100; J1170; J1650; J1885; J1940; J2250; J2270; J2370; J2405; J2550; J3010; J3475; Q9957; Q9967

== ENCOUNTER → 2022-02-13 14:01 | Outpatient (BNVA) | payer MEDICARE, OTHER, SELFPAY | PROVIDERS: PCP Internal Medicine; Referring Provider Internal Medicine; Visit Provider Surgery | DX: K80.50 Calculus of bile duct without cholangitis or cholecystitis without obstruction (principal) | CPT/HCPCS: 99212 ==

== ENCOUNTER 2022-02-16 16:11 | Inpatient (IN) | payer MEDICARE, OTHER, SELFPAY ==
[2022-02-16 16:16] VITALS: BP 125/71; BP 125/78; PULSE 116; PULSE 118; RESP 28; TEMP 36.6; O2SAT 90; O2SAT 96; BMI 45.9
[2022-02-16 16:17] VITALS: BP 125/71; PULSE 114; RESP 26; O2SAT 82
[2022-02-16] MEDS: Albuterol Sulfate 2.5 MG, Albuterol/Iprat 2.5/0.5MG 3 ML 3 ML INHALE (16:41)
[2022-02-16] MEDS: Magnesium Sulfate/H2O 2 GM/50 ML PIGGYBACK IV (16:44)
[2022-02-16] MEDS: methylPREDNISolone Sod Succ 125 MG/2 ML VIAL IVPUSH (16:44)
[2022-02-16 16:45] VITALS: PULSE 119; RESP 18; O2SAT 93
[2022-02-16] MEDS: Albuterol/Iprat 2.5/0.5MG 3 ML AMPUL.NEB INHALE (16:46)
--- NOTE | 2022-02-16 17:46 | ECG_ITS ---
Test Reason : SHORTNESS OF BREATH Blood Pressure : / mmHG Vent. Rate : 118 BPM Atrial Rate : 118 BPM P-R Int : 132 ms QRS Dur : 088 ms QT Int : 328 ms P-R-T Axes : 047 049 060 degrees QTc Int : 459 ms Sinus tachycardia with occasional Premature ventricular complexes Nonspecific ST abnormality Abnormal ECG When compared with ECG of 21-JAN-2022 12:59, Heart rate has increased Referred By: Eyad Elias Electronically Signed By:DAVID LUQUE MD
--- NOTE | 2022-02-16 17:47 | ED_ITS ---
HPI - General Adult General Chief complaint: Dyspnea <LUCI Granados Last Filed: 02/16/22 18:34> Stated complaint: SOB, ABD PAIN <LUCI Granados Last Filed: 02/16/22 18:34> Time Seen by Provider: 02/16/22 16:41 <LUCI Granados Last Filed: 02/16/22 18:34> Source: patient <LUCI Granados Last Filed: 02/16/22 18:34> Mode of arrival: ambulatory <LUCI Granados Last Filed: 02/16/22 18:34> Limitations: no limitations <LUCI Granados Last Filed: 02/16/22 18:34> History of Present Illness HPI narrative: [age] year female history of asthma, obstructive sleep apnea, GERD, PVC presents to ED for shortness of breath. Patient states shortness of breath began today. Patient denies any fever, chills, abdominal pain, leg swelling, chest pain, or chest tightness. Patient received albuterol treatment and EMS with slight improvement. <LUCI Granados - Last Filed: 02/16/22 18:34> Related Data Home medications: Home Medications Medication Instructions Recorded Confirmed fluticasone propionate 44 1 puff inhalation BID 01/15/22 02/13/22 mcg/actuation HFA aerosol inhaler (Flovent HFA) levothyroxine 75 mcg tablet 1 tab PO DAILY 01/15/22 02/13/22 mirabegron 25 mg tablet,extended 1 tab PO DAILY 01/15/22 02/13/22 release 24 hr (Myrbetriq) omeprazole 20 mg capsule,delayed 1 cap PO DAILY 01/15/22 02/13/22 release Previous Rx's Medication Instructions Recorded fluticasone furoate 200 1 ea inhalation RDAILY #60 ea 02/03/22 mcg-vilanterol 25 mcg/dose inhalation powder (Breo Ellipta) ipratropium 0.5 mg-albuterol 3 mg 3 ml inhalation RQ4H PRN Wheezing 02/03/22 (2.5 mg base)/3 mL nebulization #1 mL soln metformin 500 mg tablet 500 mg PO BID #60 tabs 02/03/22 <LUCI Granados Last Filed: 02/16/22 18:34> Allergies/adverse reactions: Allergies Allergy/AdvReac Type Severity Reaction Status Date / Time influenza virus vaccine, Allergy Severe SEVERE FLU Verified 02/13/22 14:24 specific SYMPTOMS [Influenza Virus Vacc,Specific] Sulfa (Sulfonamide Allergy Intermediate Hives Verified 02/13/22 14:24 Antibiotics) amoxicillin [Amoxicillin] Allergy Unknown UNKNOWN Verified 02/13/22 14:24 Penicillins Allergy Unknown UNKNOWN Verified 02/13/22 14:24 codeine [CODEINE] AdvReac Intermediate NAUSEA & Verified 02/13/22 14:24 VOMITING <LUCI Granados - Last Filed: 02/16/22 18:34> Review of Systems Review of Systems: Shortness of breath <LUCI Granados Last Filed: 02/16/22 18:34> Yes all other systems are reviewed and are negative <LUCI Granados Last Filed: 02/16/22 18:34> PMFSH Past Medical History Medical History: Medical History Acute respiratory failure with hypoxia Biliary colic Colitis Colon cancer screening Depression with anxiety Dysphagia Erosive esophagitis GERD (gastroesophageal reflux disease) Hiatal hernia Hospital discharge follow-up Hypothyroidism Ileus Left shoulder pain Mild cognitive impairment Mild persistent asthma Mild persistent asthma with (acute) exacerbation Mild recurrent major depression Morbid obesity Obesity (BMI 30-39.9) GILDA (obstructive sleep apnea) Pure hypercholesterolemia Respiratory distress Toxic encephalopathy <LUCI Granados - Last Filed: 02/16/22 18:34> Surgical History: Surgical History H/O colonoscopy History of benign ovarian tumor History of esophagogastroduodenoscopy (EGD) <LUCI Granados - Last Filed: 02/16/22 18:34> Family History Family History: Family History Mother Diabetes Hypertension Stroke Father Lung cancer <LUCI Granados - Last Filed: 02/16/22 18:34> Social History Social History: Social History Household Members: None Household Members Other:: daughter lives downstairs Housing: House Are you a primary insurance healthcare consultant to a significant other at home: No Do you presently have visiting nurse or other home services: Yes (Pt) Alcohol intake: never Patient Tobacco Use Status: Never used Tobacco e-Cigarette/Vaping Use: Never Used Second Hand Smoke Exposure: Yes Use of substances other than those prescribed or required for medical reasons: No Advance Directives: Yes Advance Directives on File: Yes Advance Directives Date on File: 04/03/20 service: No Current occupational status: retired Current occupation: right handed Cognitive needs: Yes Hearing needs: No Vision needs: No <LUCI Granados - Last Filed: 02/16/22 18:34> Physical Exam ED Vital Signs: Vital Signs - 24 hr 02/16/22 16:16 02/16/22 16:17 02/16/22 16:45 Temperature 97.9 F Pulse Rate 116 H 114 H 119 H Respiratory Rate 28 H 26 H 18 Blood Pressure 125/71 125/71 Pulse Oximetry 90 L 82 L Oxygen Delivery Method Nasal Cannula Nasal Cannula Oxygen Flow Rate 3 02/16/22 18:16 02/16/22 19:12 Temperature 98.1 F Pulse Rate 108 H 112 H Respiratory Rate 24 H 22 H Blood Pressure 145/82 H 133/76 Pulse Oximetry 95 94 Oxygen Delivery Method Venturi Mask Oxymask Oxygen Flow Rate 7 6 BMI result Body Mass Index 45.9 <LUCI Granados - Last Filed: 02/16/22 18:34> Vital Signs - 24 hr 02/16/22 16:16 02/16/22 16:17 02/16/22 16:45 Temperature 97.9 F Pulse Rate 116 H 114 H 119 H Respiratory Rate 28 H 26 H 18 Blood Pressure 125/71 125/71 Pulse Oximetry 90 L 82 L Oxygen Delivery Method Nasal Cannula Nasal Cannula Oxygen Flow Rate 3 02/16/22 18:16 02/16/22 19:12 Temperature 98.1 F Pulse Rate 108 H 112 H Respiratory Rate 24 H 22 H Blood Pressure 145/82 H 133/76 Pulse Oximetry 95 94 Oxygen Delivery Method Venturi Mask Oxymask Oxygen Flow Rate 7 6 BMI result Body Mass Index 45.9 <Radha Abrams NP - Last Filed: 02/16/22 21:43> Const General: cooperative, healthy appearing, comfortable, no acute distress, well developed, alert, awake and Physically active <Eyad Curt LUCI Last Filed: 02/16/22 18:34> Orientation/consciousness: oriented to time and patient oriented x3 <Eyadradha Elias LUCI Last Filed: 02/16/22 18:34> HENMO Head: Yes normal to inspection, Yes No palpable skull fracture present, Yes normocephalic, Yes atraumatic and No abrasion <Eyad Curt [facility] Last Filed: 02/16/22 18:34> Eyes General: appearance normal, both eyes and all related structures <Eyad Curt [facility] Last Filed: 02/16/22 18:34> Neck Neck: Yes normal visual inspection, Yes full ROM, Yes no lymphadenopathy, Yes no meningeal signs, Yes trachea midline, Yes supple, No anterior neck swelling and No tender <Eyad Curt [facility] Filed: 02/16/22 18:34> Chest Chest palpation & inspection: normal inspection of the chest and normal palpation of entire chest wall <Eyad Curt LUCI Filed: 02/16/22 18:34> Resp Effort & Inspection: normal respiratory effort and able to speak in complete sentences <Eyad Curt [facility] Last Filed: 02/16/22 18:34> Auscultation: clear to auscultation bilaterally <Eyad Curt LUCI Last Filed: 02/16/22 18:34> Cardio Jugular venous distension: no JVD <Eyad Curt LUCI Filed: 02/16/22 18:34> Heart sounds: S1 normal heart sound present and S2 normal heart sound present <Eyad Curt, LUCI Last Filed: 02/16/22 18:34> GI Inspection: Yes normal to inspection and No abdominal wall ecchymosis <Eyad Curt [facility] Last Filed: 02/16/22 18:34> Palpation (GI): Soft to palpation, not firm, nontender, no guarding and not rigid <Eyad Curt, PA Last Filed: 02/16/22 18:34> General: No CVA tenderness and Yes no CVA tenderness <Eyad Curt, PA Last Filed: 02/16/22 18:34> Back/Spine/Pelvis Back: no CVA tenderness, No CVA tenderness and No back tenderness <LUCI Granados Last Filed: 02/16/22 18:34> Skin General skin exam: no rashes or lesions noted and elasticity normal <LUCI Granados Last Filed: 02/16/22 18:34> Neuro General: oriented to time, patient oriented x3, gait normal, no meningeal signs and CN's II-XI intact bilaterally <LUCI Granados Last Filed: 02/16/22 18:34> Extrem Other: Bilateral lower extremities negative for swelling, pitting edema, calf tenderness <LUCI Granados Last Filed: 02/16/22 18:34> General: Yes normal to inspection and Yes full ROM <LUCI Granados Last Filed: 02/16/22 18:34> Psych Appearance: grossly normal, well kempt and not disheveled <LUCI Granados Last Filed: 02/16/22 18:34> Course Course Course Narrative: Patient on non-rebreather 6 L at 90-94%. EKG and labs including troponin, BNP, and coags ordered. Albuterol, magnesium, Solu-Medrol ordered <LUCI Granados Last Filed: 02/16/22 18:34> Patient on non-rebreather 6 L at 90-94%. EKG and labs including troponin, BNP, and coags ordered. Albuterol, magnesium, Solu-Medrol ordered 18:53 this RECOVERY AUDITOR is taking over care for this patient, after review of records patient is approximately 2 weeks status post cholecystectomy with ERCP 2 days prior. Patient is tachycardic at 108, has elevated troponins, elevated alk phos, BNP, will add on lipase, lactic acid and cultures. Considering patient recent abdominal surgery, abnormal values and lab levels, plan of care is for CT abdomen pelvis to rule out abscess. 21:23 discussion with Radiology, patient has bilateral pulmonary embolism, no evidence of heart strain, large air pocket above the uterus measuring 5.5 cm slightly larger than from prior imaging from January 15 and from imaging from 2020. She does have evidence of pancreatitis. 21:39 discussion with hospitalist, plan of care is to admit for bilateral PE, will start Lovenox at this time. Discussion with patient's family, patient and patient family verbalized understanding of and agrees to plan of care for admission. <Radha Abrams NP - Last Filed: 02/16/22 21:43> Reevaluation(s) Reevaluation #1: EKG negative STEMI. 02 sat 96% on 6 L. Pending chest x-ray. Most likely will order chest CTA to rule out PE due to patient's initial hypoxic presentation and tachycardia. Patient had recent surgery last month to remove gallstones. Patient had ERCP. Most likely patient will need chest CT to rule out PE. ABG ordered. <LUCI Granados - Last Filed: 02/16/22 18:34> EKG negative STEMI. 02 sat 96% on 6 L. Pending chest x-ray. Most likely will order chest CTA to rule out PE due to patient's initial hypoxic presentation and tachycardia. Patient had recent surgery last month to remove gallstones. Patient had ERCP. Most likely patient will need chest CT to rule out PE. ABG ordered. <Radha Abrams NP - Last Filed: 02/16/22 21:43> Time: 18:05 <LUCI Granados - Last Filed: 02/16/22 18:34> Reevaluation #2: Troponin came back positive at 29. BNP only 208. Will order chest CTA to rule out PE. Will order secondary troponin. Sign out to LUCI Garcia. BNP 208 <LUCI Granados - Last Filed: 02/16/22 18:34> Time: 18:11 <LUCI Granados - Last Filed: 02/16/22 18:34> Medical Decision Making MDM Narrative Medical decision making narrative: Dyspnea <LUCI Granados - Last Filed: 02/16/22 18:34> Lab Data Result diagrams: : 02/16/22 18:07 02/16/22 17:12 <LUCI Granados Last Filed: 02/16/22 18:34> Labs: Lab Results 02/16/22 02/16/22 02/16/22 Range/Units 16:40 17:12 17:12 WBC (4.8-10.8) X10*3/uL RBC (4.20-5.50) X10*6/uL Hgb (12.0-16.0) g/dl Hct (37.0-47.0) % MCV (80.0-98.0) fL MCH (27.0-33.0) pg MCHC (31.0-35.0) g/dl RDW (11.0-16.0) % Plt Count (160-400) X10*3/uL MPV (9.4-12.3) fL Immature Gran % (Auto) (0.0-0.4) % Neut % (Auto) (45-73) % Lymph % (Auto) (20-40) % [place] % (Auto) (2-11) % Eos % (Auto) (0-4) % Baso % (Auto) (0-2) % Lymph # (Auto) (1.2-4.9) X10*3/uL [place] # (Auto) (0.1-1.2) X10*3/uL Eos # (Auto) (0.0-0.4) X10*3/uL Baso # (Auto) (0.0-0.2) X10*3/uL Abs Immat Gran (auto) (0.00-0.03) X10*3/uL Absolute Neuts (auto) (2.0-8.3) x10*3/uL Absolute Nucleated RBC (0.0-0.012) X10*3/uL Nucleated RBC % (auto) (0.0-0.2) /100WBC PT (10.0-13.1) SEC INR (0.9-1.1) APTT (26.0-36.4) SEC Sodium 140 (135-145) mmol/L Potassium 3.6 (3.3-5.1) mmol/L Chloride 98 (96-108) mmol/L Carbon Dioxide 27 (22-29) mmol/L Anion Gap 19 (12-20) BUN 14 (9-16) mg/dL Creatinine 0.74 (0.5-1.4) mg/dL Estim Creat Clear Calc 76.6 Estimated GFR > 60 POC Glucose 173 H (60-115) mg/dL Random Glucose 180 H (60-115) mg/dL Lactic Acid (0.5-2.0) mmol/L Calcium 8.5 (8.4-10.2) mg/dL Total Bilirubin 0.3 (0.0-1.0) mg/dL AST 18 (5-31) U/L ALT 10 (0-31) U/L Alkaline Phosphatase 153 H (39-117) U/L Troponin I High Sens 29.0 H D (<3.5-17.0) ng/L B-Natriuretic Peptide 208 H (<100) pg/mL Total Protein 6.0 L (6.5-8.0) g/dL Albumin 3.2 L (3.5-5.0) g/dL Lipase 19 (8-78) U/L COVID-19 (ANEL) (Negative) COVID-19 Clin Com 02/16/22 02/16/22 02/16/22 Range/Units 17:30 18:07 18:07 WBC 12.2 H (4.8-10.8) X10*3/uL RBC 4.58 D (4.20-5.50) X10*6/uL Hgb 12.2 (12.0-16.0) g/dl Hct 39.9 (37.0-47.0) % MCV 87.1 D (80.0-98.0) fL MCH 26.6 L (27.0-33.0) pg MCHC 30.6 L (31.0-35.0) g/dl RDW 14.4 (11.0-16.0) % Plt Count 403 H D (160-400) X10*3/uL MPV 9.8 (9.4-12.3) fL Immature Gran % (Auto) 1.3 H (0.0-0.4) % Neut % (Auto) 86.0 H (45-73) % Lymph % (Auto) 6.6 L (20-40) % [place] % (Auto) 4.6 (2-11) % Eos % (Auto) 0.9 (0-4) % Baso % (Auto) 0.6 (0-2) % Lymph # (Auto) 0.8 L (1.2-4.9) X10*3/uL [place] # (Auto) 0.6 (0.1-1.2) X10*3/uL Eos # (Auto) 0.1 (0.0-0.4) X10*3/uL Baso # (Auto) 0.1 (0.0-0.2) X10*3/uL Abs Immat Gran (auto) 0.16 H (0.00-0.03) X10*3/uL Absolute Neuts (auto) 10.5 H (2.0-8.3) x10*3/uL Absolute Nucleated RBC 0.000 (0.0-0.012) X10*3/uL Nucleated RBC % (auto) 0.0 (0.0-0.2) /100WBC PT 12.2 (10.0-13.1) SEC INR 1.1 (0.9-1.1) APTT 24.8 L (26.0-36.4) SEC Sodium (135-145) mmol/L Potassium (3.3-5.1) mmol/L Chloride (96-108) mmol/L Carbon Dioxide (22-29) mmol/L Anion Gap (12-20) BUN (9-16) mg/dL Creatinine (0.5-1.4) mg/dL Estim Creat Clear Calc Estimated GFR POC Glucose (60-115) mg/dL Random Glucose (60-115) mg/dL Lactic Acid (0.5-2.0) mmol/L Calcium (8.4-10.2) mg/dL Total Bilirubin (0.0-1.0) mg/dL AST (5-31) U/L ALT (0-31) U/L Alkaline Phosphatase (39-117) U/L Troponin I High Sens (<3.5-17.0) ng/L B-Natriuretic Peptide (<100) pg/mL Total Protein (6.5-8.0) g/dL Albumin (3.5-5.0) g/dL Lipase (8-78) U/L COVID-19 (ANEL) Negative (Negative) COVID-19 Clin Com See Note 02/16/22 02/16/22 Range/Units 19:53 19:53 WBC (4.8-10.8) X10*3/uL RBC (4.20-5.50) X10*6/uL Hgb (12.0-16.0) g/dl Hct (37.0-47.0) % MCV (80.0-98.0) fL MCH (27.0-33.0) pg MCHC (31.0-35.0) g/dl RDW (11.0-16.0) % Plt Count (160-400) X10*3/uL MPV (9.4-12.3) fL Immature Gran % (Auto) (0.0-0.4) % Neut % (Auto) (45-73) % Lymph % (Auto) (20-40) % [place] % (Auto) (2-11) % Eos % (Auto) (0-4) % Baso % (Auto) (0-2) % Lymph # (Auto) (1.2-4.9) X10*3/uL [place] # (Auto) (0.1-1.2) X10*3/uL Eos # (Auto) (0.0-0.4) X10*3/uL Baso # (Auto) (0.0-0.2) X10*3/uL Abs Immat Gran (auto) (0.00-0.03) X10*3/uL Absolute Neuts (auto) (2.0-8.3) x10*3/uL Absolute Nucleated RBC (0.0-0.012) X10*3/uL Nucleated RBC % (auto) (0.0-0.2) /100WBC PT (10.0-13.1) SEC INR (0.9-1.1) APTT (26.0-36.4) SEC Sodium (135-145) mmol/L Potassium (3.3-5.1) mmol/L Chloride (96-108) mmol/L Carbon Dioxide (22-29) mmol/L Anion Gap (12-20) BUN (9-16) mg/dL Creatinine (0.5-1.4) mg/dL Estim Creat Clear Calc Estimated GFR POC Glucose (60-115) mg/dL Random Glucose (60-115) mg/dL Lactic Acid 0.8 (0.5-2.0) mmol/L Calcium (8.4-10.2) mg/dL Total Bilirubin (0.0-1.0) mg/dL AST (5-31) U/L ALT (0-31) U/L Alkaline Phosphatase (39-117) U/L Troponin I High Sens 54.2 H* D (<3.5-17.0) ng/L B-Natriuretic Peptide (<100) pg/mL Total Protein (6.5-8.0) g/dL Albumin (3.5-5.0) g/dL Lipase (8-78) U/L COVID-19 (ANEL) (Negative) COVID-19 Clin Com <LUCI Granados - Last Filed: 02/16/22 18:34> Lab Results 02/16/22 02/16/22 02/16/22 Range/Units 16:40 17:12 17:12 WBC (4.8-10.8) X10*3/uL RBC (4.20-5.50) X10*6/uL Hgb (12.0-16.0) g/dl Hct (37.0-47.0) % MCV (80.0-98.0) fL MCH (27.0-33.0) pg MCHC (31.0-35.0) g/dl RDW (11.0-16.0) % Plt Count (160-400) X10*3/uL MPV (9.4-12.3) fL Immature Gran % (Auto) (0.0-0.4) % Neut % (Auto) (45-73) % Lymph % (Auto) (20-40) % [place] % (Auto) (2-11) % Eos % (Auto) (0-4) % Baso % (Auto) (0-2) % Lymph # (Auto) (1.2-4.9) X10*3/uL [place] # (Auto) (0.1-1.2) X10*3/uL Eos # (Auto) (0.0-0.4) X10*3/uL Baso # (Auto) (0.0-0.2) X10*3/uL Abs Immat Gran (auto) (0.00-0.03) X10*3/uL Absolute Neuts (auto) (2.0-8.3) x10*3/uL Absolute Nucleated RBC (0.0-0.012) X10*3/uL Nucleated RBC % (auto) (0.0-0.2) /100WBC PT (10.0-13.1) SEC INR (0.9-1.1) APTT (26.0-36.4) SEC Sodium 140 (135-145) mmol/L Potassium 3.6 (3.3-5.1) mmol/L Chloride 98 (96-108) mmol/L Carbon Dioxide 27 (22-29) mmol/L Anion Gap 19 (12-20) BUN 14 (9-16) mg/dL Creatinine 0.74 (0.5-1.4) mg/dL Estim Creat Clear Calc 76.6 Estimated GFR > 60 POC Glucose 173 H (60-115) mg/dL Random Glucose 180 H (60-115) mg/dL Lactic Acid (0.5-2.0) mmol/L Calcium 8.5 (8.4-10.2) mg/dL Total Bilirubin 0.3 (0.0-1.0) mg/dL AST 18 (5-31) U/L ALT 10 (0-31) U/L Alkaline Phosphatase 153 H (39-117) U/L Troponin I High Sens 29.0 H D (<3.5-17.0) ng/L B-Natriuretic Peptide 208 H (<100) pg/mL Total Protein 6.0 L (6.5-8.0) g/dL Albumin 3.2 L (3.5-5.0) g/dL Lipase 19 (8-78) U/L COVID-19 (ANEL) (Negative) COVID-19 Clin Com 02/16/22 02/16/22 02/16/22 Range/Units 17:30 18:07 18:07 WBC 12.2 H (4.8-10.8) X10*3/uL RBC 4.58 D (4.20-5.50) X10*6/uL Hgb 12.2 (12.0-16.0) g/dl Hct 39.9 (37.0-47.0) % MCV 87.1 D (80.0-98.0) fL MCH 26.6 L (27.0-33.0) pg MCHC 30.6 L (31.0-35.0) g/dl RDW 14.4 (11.0-16.0) % Plt Count 403 H D (160-400) X10*3/uL MPV 9.8 (9.4-12.3) fL Immature Gran % (Auto) 1.3 H (0.0-0.4) % Neut % (Auto) 86.0 H (45-73) % Lymph % (Auto) 6.6 L (20-40) % [place] % (Auto) 4.6 (2-11) % Eos % (Auto) 0.9 (0-4) % Baso % (Auto) 0.6 (0-2) % Lymph # (Auto) 0.8 L (1.2-4.9) X10*3/uL [place] # (Auto) 0.6 (0.1-1.2) X10*3/uL Eos # (Auto) 0.1 (0.0-0.4) X10*3/uL Baso # (Auto) 0.1 (0.0-0.2) X10*3/uL Abs Immat Gran (auto) 0.16 H (0.00-0.03) X10*3/uL Absolute Neuts (auto) 10.5 H (2.0-8.3) x10*3/uL Absolute Nucleated RBC 0.000 (0.0-0.012) X10*3/uL Nucleated RBC % (auto) 0.0 (0.0-0.2) /100WBC PT 12.2 (10.0-13.1) SEC INR 1.1 (0.9-1.1) APTT 24.8 L (26.0-36.4) SEC Sodium (135-145) mmol/L Potassium (3.3-5.1) mmol/L Chloride (96-108) mmol/L Carbon Dioxide (22-29) mmol/L Anion Gap (12-20) BUN (9-16) mg/dL Creatinine (0.5-1.4) mg/dL Estim Creat Clear Calc Estimated GFR POC Glucose (60-115) mg/dL Random Glucose (60-115) mg/dL Lactic Acid (0.5-2.0) mmol/L Calcium (8.4-10.2) mg/dL Total Bilirubin (0.0-1.0) mg/dL AST (5-31) U/L ALT (0-31) U/L Alkaline Phosphatase (39-117) U/L Troponin I High Sens (<3.5-17.0) ng/L B-Natriuretic Peptide (<100) pg/mL Total Protein (6.5-8.0) g/dL Albumin (3.5-5.0) g/dL Lipase (8-78) U/L COVID-19 (ANEL) Negative (Negative) COVID-19 Clin Com See Note 02/16/22 02/16/22 Range/Units 19:53 19:53 WBC (4.8-10.8) X10*3/uL RBC (4.20-5.50) X10*6/uL Hgb (12.0-16.0) g/dl Hct (37.0-47.0) % MCV (80.0-98.0) fL MCH (27.0-33.0) pg MCHC (31.0-35.0) g/dl RDW (11.0-16.0) % Plt Count (160-400) X10*3/uL MPV (9.4-12.3) fL Immature Gran % (Auto) (0.0-0.4) % Neut % (Auto) (45-73) % Lymph % (Auto) (20-40) % [place] % (Auto) (2-11) % Eos % (Auto) (0-4) % Baso % (Auto) (0-2) % Lymph # (Auto) (1.2-4.9) X10*3/uL [place] # (Auto) (0.1-1.2) X10*3/uL Eos # (Auto) (0.0-0.4) X10*3/uL Baso # (Auto) (0.0-0.2) X10*3/uL Abs Immat Gran (auto) (0.00-0.03) X10*3/uL Absolute Neuts (auto) (2.0-8.3) x10*3/uL Absolute Nucleated RBC (0.0-0.012) X10*3/uL Nucleated RBC % (auto) (0.0-0.2) /100WBC PT (10.0-13.1) SEC INR (0.9-1.1) APTT (26.0-36.4) SEC Sodium (135-145) mmol/L Potassium (3.3-5.1) mmol/L Chloride (96-108) mmol/L Carbon Dioxide (22-29) mmol/L Anion Gap (12-20) BUN (9-16) mg/dL Creatinine (0.5-1.4) mg/dL Estim Creat Clear Calc Estimated GFR POC Glucose (60-115) mg/dL Random Glucose (60-115) mg/dL Lactic Acid 0.8 (0.5-2.0) mmol/L Calcium (8.4-10.2) mg/dL Total Bilirubin (0.0-1.0) mg/dL AST (5-31) U/L ALT (0-31) U/L Alkaline Phosphatase (39-117) U/L Troponin I High Sens 54.2 H* D (<3.5-17.0) ng/L B-Natriuretic Peptide (<100) pg/mL Total Protein (6.5-8.0) g/dL Albumin (3.5-5.0) g/dL Lipase (8-78) U/L COVID-19 (ANEL) (Negative) COVID-19 Clin Com <Radha Abrams NP - Last Filed: 02/16/22 21:43> ECG Data Interpretation: Sinus tachycardia with PVCs. Ventricular rate 118. HI interval 132. QRS 88. QTC 459. Negative STEMI <LUCI Granados - Last Filed: 02/16/22 18:34> Discharge Plan Discharge Clinical Impression: Dyspnea, Pulmonary embolism <LUCI Granados - Last Filed: 02/16/22 18:34> Patient Disposition: Admitted As Inpatient <LUCI Granados - Last Filed: 02/16/22 18:34>
[2022-02-16 17:48] LABS: INTERNATIONAL NORM RATIO 1.1 (0.9-1.1); Prothrombin Time 12.2 SEC (10.0-13.1)
[2022-02-16 17:50] LABS: Partial Thromboplastin Time 24.8 SEC (26.0-36.4)
[2022-02-16 17:59] LABS: Alanine Aminotransferase 10 U/L (0-31); Albumin Level 3.2 g/dL (3.5-5.0); Alkaline Phosphatase 153 U/L (39-117); Anion Gap 19 (12-20); Aspartate Amino Transferase 18 U/L (5-31); Bilirubin Total 0.3 mg/dL (0.0-1.0); Blood Urea Nitrogen 14 mg/dL (9-16); Calcium 8.5 mg/dL (8.4-10.2); Carbon Dioxide 27 mmol/L (22-29); Chloride 98 mmol/L (96-108); Creatinine Clr Calc Pharmacy 76.6; Estimated Glomerular Filt Rate > 60; Glucose Random 180 mg/dL (60-115); Potassium 3.6 mmol/L (3.3-5.1); Sodium 140 mmol/L (135-145)
[2022-02-16 18:03] LABS: B Type Natriuretic Peptide 208 pg/mL (<100)
[2022-02-16 18:16] VITALS: BP 145/82; PULSE 108; RESP 24; O2SAT 95
[2022-02-16 18:24] LABS: Basophils Absolute Auto 0.1 X10*3/uL (0.0-0.2); Basophils Percent Auto 0.6 % (0-2); Eosinophils Absolute Auto 0.1 X10*3/uL (0.0-0.4); Eosinophils Percent Auto 0.9 % (0-4); Hematocrit 39.9 % (37.0-47.0); Hemoglobin 12.2 g/dl (12.0-16.0); Imm Gran Abs Auto 0.16 X10*3/uL (0.00-0.03); Imm Gran Pct Auto 1.3 % (0.0-0.4); Lymphocytes Absolute Auto 0.8 X10*3/uL (1.2-4.9); Lymphocytes Percent Auto 6.6 % (20-40); Mean Corpuscular HGB Conc 30.6 g/dl (31.0-35.0); Mean Corpuscular Hemoglobin 26.6 pg (27.0-33.0); Mean Corpuscular Volume 87.1 fL (80.0-98.0); Mean Platelet Volume 9.8 fL (9.4-12.3); Monocytes Absolute Auto 0.6 X10*3/uL (0.1-1.2); Monocytes Percent Auto 4.6 % (2-11); Neutrophils Absolute Auto 10.5 x10*3/uL (2.0-8.3); Platelet Count 403 X10*3/uL (160-400); Red Blood Count 4.58 X10*6/uL (4.20-5.50); Red Cell Distribution Width 14.4 % (11.0-16.0); White Blood Count 12.2 X10*3/uL (4.8-10.8)
[2022-02-16 18:37] LABS: COVID-19 Test Negative (Negative); IDNOW Serial# 16C4AD1C
[2022-02-16 19:12] VITALS: BP 133/76; PULSE 112; RESP 22; TEMP 36.7; O2SAT 94
[2022-02-16 19:30] LABS: Lipase 19 U/L (8-78)
[2022-02-16 19:48] LABS: MANUAL DIFF FLAG NO
[2022-02-16 20:11] LABS: Lactic Acid 0.8 mmol/L (0.5-2.0)
[2022-02-16] MEDS: iohexoL 350 MG/ML 100 ML INFUS..BTL IV (20:36)
[2022-02-16 20:43] LABS: Troponin-I High Sensitivity 54.2 ng/L (<3.5-17.0)
--- NOTE | 2022-02-16 22:02 | PC.NURSE ---
contact made to pharmacy for lovenox. Bette Confirmed that she will bring med
[2022-02-16 22:12] VITALS: BP 142/88; PULSE 110; RESP 25; TEMP 36.9; O2SAT 91
--- NOTE | 2022-02-16 22:19 | PC.NURSE ---
pt was incontienent of urine. changed pt and bedding. pericare on patient. purewick in place.
[2022-02-16] MEDS: Enoxaparin Sodium 120 MG/0.8 ML SYRINGE 105 MG SUBCUT (22:22)
--- NOTE | 2022-02-16 23:51 | PM.IMHP ---
History of Present Illness Date of Service: 02/16/22 Chief Complaint: sob This is a 76-year-old female with past medical history of mild persistent asthma, hypothyroidism, GERD, hiatal hernia, bilateral calcific tendinitis, urge incontinence, with recent admission to the hospital for choledocholithiasis, status post ERCP on 01/17, with so enterectomy and removal of a 12 mm stone, complicated by acute pancreatitis and patient developed ileus and hypocalcemia post surgery, requiring NG tube placement and TPN with resolution of her ileus, and advancement of her diet, patient was discharged to SNF for short-term rehab on 02/03, returns today stating difficulty breathing. Patient reports shortness of breath x1 day, no cough, no sputum production, denies any chest pain, no abdominal pain nausea or vomiting, no diarrhea constipation, no urinary symptoms. And no lower extremity edema. No orthopnea PND On arrival to the ED patient found to have a heart rate 116, respiratory rate of 28, satting 90% on on 5 L of oxygen, dropping to 82% on room air. Labs are significant for WBC count of 12.2, troponin of 29, increased to 54, 05/15/1996 respectively, chest CT angiogram shows multiple bilateral pulmonary emboli, with no evidence of right heart strain, slightly increased volume of fluid in the mesentery related to patient's pancreatitis, no pseudocyst formation, no evidence of pancreatic necrosis, Patient started on Lovenox and will be admitted for further management Review of Systems Review of Systems: Yes all other systems are reviewed and are negative [facility] Medical History Acute respiratory failure with hypoxia Biliary colic Colitis Colon cancer screening Depression with anxiety Dysphagia Erosive esophagitis GERD (gastroesophageal reflux disease) Hiatal hernia Hospital discharge follow-up Hypothyroidism Ileus Left shoulder pain Mild cognitive impairment Mild persistent asthma Mild persistent asthma with (acute) exacerbation Mild recurrent major depression Morbid obesity Obesity (BMI 30-39.9) GILDA (obstructive sleep apnea) Pure hypercholesterolemia Respiratory distress Toxic encephalopathy Family History Mother Diabetes Hypertension Stroke Father Lung cancer Surgical History H/O colonoscopy History of benign ovarian tumor History of esophagogastroduodenoscopy (EGD) Social History Household Members: None Household Members Other:: daughter lives downstairs Housing: House Are you a primary day care center director to a significant other at home: No Do you presently have visiting nurse or other home services: Yes (Pt) Alcohol intake: never Patient Tobacco Use Status: Never used Tobacco e-Cigarette/Vaping Use: Never Used Second Hand Smoke Exposure: Yes Use of substances other than those prescribed or required for medical reasons: No Advance Directives: Yes Advance Directives on File: Yes Advance Directives Date on File: 04/03/20 service: No Current occupational status: retired Current occupation: right handed Cognitive needs: Yes Hearing needs: No Vision needs: No Meds Allergies Allergy/AdvReac Type Severity Reaction Status Date / Time influenza virus vaccine, Allergy Severe SEVERE FLU Verified 02/13/22 14:24 specific SYMPTOMS [Influenza Virus Vacc,Specific] Sulfa (Sulfonamide Allergy Intermediate Hives Verified 02/13/22 14:24 Antibiotics) amoxicillin [Amoxicillin] Allergy Unknown UNKNOWN Verified 02/13/22 14:24 Penicillins Allergy Unknown UNKNOWN Verified 02/13/22 14:24 codeine [CODEINE] AdvReac Intermediate NAUSEA & Verified 02/13/22 14:24 VOMITING Home Medications Medication Instructions Recorded Confirmed Last Taken Type fluticasone propionate 44 1 puff inhalation BID 01/15/22 02/16/22 Unknown History mcg/actuation HFA aerosol inhaler (Flovent HFA) levothyroxine 75 mcg tablet 1 tab PO DAILY 01/15/22 02/16/22 Unknown History mirabegron 25 mg tablet,extended 1 tab PO DAILY 01/15/22 02/16/22 Unknown History release 24 hr (Myrbetriq) omeprazole 20 mg capsule,delayed 1 cap PO DAILY 01/15/22 02/16/22 Unknown History release Physical Exam Vital Signs and Narrative: Vital Signs: Last Vital Signs Temp 98.4 F 02/16/22 22:12 Pulse 110 H 02/16/22 22:12 Resp 25 H 02/16/22 22:12 BP 142/88 H 02/16/22 22:12 Pulse Ox 91 L 02/16/22 22:12 O2 Del Method 02/16/22 22:12 O2 Flow Rate 6 02/16/22 22:12 Oxygen Flow Rate 5 02/16/22 16:16 BMI result Body Mass Index 45.9 Const: General: cooperative and no acute distress Orientation/consciousness: patient oriented x3 Eyes: General: appearance normal, both eyes and all related structures Pupils: Equal, round and reactive pupils present Resp: Other: Appears in respiratory distress, Effort & Inspection: normal respiratory effort Cardio: Rate: regular rate Rhythm: regular rhythm GI: Palpation (GI): Soft to palpation Auscultation: normal bowel sounds Skin: General skin exam: no rashes or lesions noted Neuro: General: patient oriented x3 Cranial nerves: Yes Equal, round and reactive pupils present Cognition (Neuro): normal cognition Extrem: General: Yes normal to inspection and Yes no pedal edema Results Labs CBC and Chem 7: 02/17/22 05:36 02/17/22 05:36 Labs: Laboratory Results - last 24 hr 02/16/22 02/16/22 02/16/22 16:40 17:12 17:12 MCV MCH MCHC RDW Plt Count MPV Immature Gran % (Auto) Neut % (Auto) Lymph % (Auto) [place] % (Auto) Eos % (Auto) Baso % (Auto) Lymph # (Auto) [place] # (Auto) Eos # (Auto) Baso # (Auto) Abs Immat Gran (auto) Absolute Neuts (auto) Absolute Nucleated RBC Nucleated RBC % (auto) PT INR APTT Anion Gap 19 Estim Creat Clear Calc 76.6 Estimated GFR > 60 POC Glucose 173 H Random Glucose 180 H Lactic Acid Calcium 8.5 Total Bilirubin 0.3 AST 18 ALT 10 Alkaline Phosphatase 153 H Troponin I High Sens 29.0 H D B-Natriuretic Peptide 208 H Total Protein 6.0 L Albumin 3.2 L Lipase 19 COVID-19 (ANEL) COVID-19 Clin Com 02/16/22 02/16/22 02/16/22 17:30 18:07 18:07 MCV 87.1 D MCH 26.6 L MCHC 30.6 L RDW 14.4 Plt Count 403 H D MPV 9.8 Immature Gran % (Auto) 1.3 H Neut % (Auto) 86.0 H Lymph % (Auto) 6.6 L [place] % (Auto) 4.6 Eos % (Auto) 0.9 Baso % (Auto) 0.6 Lymph # (Auto) 0.8 L [place] # (Auto) 0.6 Eos # (Auto) 0.1 Baso # (Auto) 0.1 Abs Immat Gran (auto) 0.16 H Absolute Neuts (auto) 10.5 H Absolute Nucleated RBC 0.000 Nucleated RBC % (auto) 0.0 PT 12.2 INR 1.1 APTT 24.8 L Anion Gap Estim Creat Clear Calc Estimated GFR POC Glucose Random Glucose Lactic Acid Calcium Total Bilirubin AST ALT Alkaline Phosphatase Troponin I High Sens B-Natriuretic Peptide Total Protein Albumin Lipase COVID-19 (ANEL) Negative COVID-19 Clin Com See Note 02/16/22 02/16/22 19:53 19:53 MCV MCH MCHC RDW Plt Count MPV Immature Gran % (Auto) Neut % (Auto) Lymph % (Auto) [place] % (Auto) Eos % (Auto) Baso % (Auto) Lymph # (Auto) [place] # (Auto) Eos # (Auto) Baso # (Auto) Abs Immat Gran (auto) Absolute Neuts (auto) Absolute Nucleated RBC Nucleated RBC % (auto) PT INR APTT Anion Gap Estim Creat Clear Calc Estimated GFR POC Glucose Random Glucose Lactic Acid 0.8 Calcium Total Bilirubin AST ALT Alkaline Phosphatase Troponin I High Sens 54.2 H* D B-Natriuretic Peptide Total Protein Albumin Lipase COVID-19 (ANEL) COVID-19 Clin Com Imaging Radiologist's Impressions: Impressions Abdomen/Pelvis CT 02/16/22 20:41 IMPRESSION: 1. Multiple bilateral pulmonary emboli. No evidence of right heart strain. 2. Slight increased volume of fluid in the mesentery related to patient's pancreatitis. No pseudocyst formation. No evidence of pancreatic necrosis. 3. Diverticulosis of colon without evidence of diverticulitis. There is a large air collection along lower central pelvis favored to be a giant diverticulum as there is no surrounding inflammation the mesentery to indicate this would be an acute process such as a abscess. This was present on the CAT scan of 01/15/2022. A repeat exam of the pelvis with rectal contrast may be helpful for further assessment. 4. Consolidation right lung base with trace right pleural effusion. Elevated right diaphragm. This critical result was discussed with Radha Sinha NP on 02/08/2022, 9:30 PM and it was ascertained that the content and urgency of the report was understood at the time of direct communication. Chest CTA 02/16/22 20:41 IMPRESSION: 1. Multiple bilateral pulmonary emboli. No evidence of right heart strain. 2. Slight increased volume of fluid in the mesentery related to patient's pancreatitis. No pseudocyst formation. No evidence of pancreatic necrosis. 3. Diverticulosis of colon without evidence of diverticulitis. There is a large air collection along lower central pelvis favored to be a giant diverticulum as there is no surrounding inflammation the mesentery to indicate this would be an acute process such as a abscess. This was present on the CAT scan of 01/15/2022. A repeat exam of the pelvis with rectal contrast may be helpful for further assessment. 4. Consolidation right lung base with trace right pleural effusion. Elevated right diaphragm. This critical result was discussed with Radha Sinha SUBSTATION MAINTENANCE TECHNICIAN on 02/08/2022, 9:30 PM and it was ascertained that the content and urgency of the report was understood at the time of direct communication. Assessment and Plan (1) Acute respiratory failure with hypoxia: Status: Acute (2) Pulmonary embolism: Status: Acute (3) Elevated troponin: Status: Acute (4) Chronic pancreatitis: Status: Acute Plan 76-year-old female with recent admission to the hospital for choledocholithiasis complicated by ileus and pancreatitis post ERCP returns to the hospital today with shortness of breath found to have bilateral PE # bilateral PE - hypoxic - no evidence of right heart strain - will start her on Lovenox - echocardiogram # elevated troponin - likely secondary to PE/hypoxia - BNP slightly elevated - patient denies any chest pain - echocardiogram will be ordered # chronic pancreatitis - patient developed pancreatitis post ERCP in January - at this time lipase is normal, patient denies a little pain - no evidence of pseudocyst or pancreatic necrosis - monitor # consolidation seen on CT - not concerned for pneumonia at this time as patient afebrile, no leukocytosis, denies any cough - monitor respiratory status # diabetes - recently diagnosed - hold metformin - low-dose sliding scale insulin - diabetic diet # hypothyroidism - continue levothyroxine DVT prophylaxis: Lovenox Pt will require a minimum 2 night hospital stay for management of PE with elevated troponin Quality Stroke Does the patient have a stroke diagnosis?: No VTE Prior VTE?: No VTE Risk Level:: Medical - moderate - high VTE Device Contraindication: Treatment Not Indicated VTE Drug Contraindication: N/A - Med Ordered
[2022-02-17] VITALS: BP 136/94; PULSE 108; RESP 20; O2SAT 92
--- NOTE | 2022-02-17 | ECG_ITS ---
Test Reason : DYSPNEA Blood Pressure : / mmHG Vent. Rate : 102 BPM Atrial Rate : 102 BPM P-R Int : 140 ms QRS Dur : 090 ms QT Int : 376 ms P-R-T Axes : 055 050 040 degrees QTc Int : 490 ms Sinus tachycardia with occasional Premature ventricular complexes Otherwise normal ECG When compared with ECG of 16-FEB-2022 16:32, No significant change was found Referred By: [facility] Electronically Signed By:DAVID LUQUE MD
[2022-02-17] MEDS: 0.9 % Sodium Chloride Flush 3 ML SYRINGE IVFLUSH ×3 (00:09→15:56)
[2022-02-17 01:08] LABS: Troponin-I High Sensitivity 97.3 ng/L (<3.5-17.0)
[2022-02-17 03:35] LABS: Troponin-I High Sensitivity 105.9 ng/L (<3.5-17.0)
[2022-02-17 05:31] VITALS: BP 132/90; PULSE 93; RESP 18; O2SAT 95
--- NOTE | 2022-02-17 06:04 | PC.NURSE ---
aware of HTN. No new orders.
[2022-02-17 06:14] LABS: Hematocrit 35.7 % (37.0-47.0); Hemoglobin 10.9 g/dl (12.0-16.0); Mean Corpuscular HGB Conc 30.5 g/dl (31.0-35.0); Mean Corpuscular Hemoglobin 26.7 pg (27.0-33.0); Mean Corpuscular Volume 87.3 fL (80.0-98.0); Mean Platelet Volume 10.2 fL (9.4-12.3); Platelet Count 397 X10*3/uL (160-400); Red Blood Count 4.09 X10*6/uL (4.20-5.50); Red Cell Distribution Width 14.3 % (11.0-16.0); White Blood Count 7.1 X10*3/uL (4.8-10.8)
[2022-02-17 06:20] LABS: INTERNATIONAL NORM RATIO 1.1 (0.9-1.1); Prothrombin Time 13.2 SEC (10.0-13.1)
[2022-02-17 06:23] LABS: Partial Thromboplastin Time 31.3 SEC (26.0-36.4)
[2022-02-17 06:30] LABS: Anion Gap 18 (12-20); Blood Urea Nitrogen 15 mg/dL (9-16); Calcium 8.6 mg/dL (8.4-10.2); Carbon Dioxide 30 mmol/L (22-29); Chloride 97 mmol/L (96-108); Creatinine Clr Calc Pharmacy 84.7; Estimated Glomerular Filt Rate > 60; Glucose Random 227 mg/dL (60-115); Potassium 4.2 mmol/L (3.3-5.1); Sodium 141 mmol/L (135-145)
[2022-02-17 06:38] LABS: Troponin-I High Sensitivity 108.2 ng/L (<3.5-17.0)
[2022-02-17 07:07] LABS: Glucose, Whole Blood 186 mg/dL (60-115)
[2022-02-17] MEDS: Insulin Lispro 100 UNIT/ML 3 ML VIAL SUBCUT ×2 (07:30→12:37)
[2022-02-17] MEDS: Levothyroxine Sodium 75 MCG TABLET PO (07:30)
[2022-02-17 07:33] VITALS: BP 149/99; PULSE 98; RESP 19; RESP 20; O2SAT 95
[2022-02-17] MEDS: Omeprazole 20 MG CAPSULE.DR PO (08:42)
[2022-02-17] MEDS: Mirabegron 25 MG TAB.ER.24H PO (08:42)
--- NOTE | 2022-02-17 09:16 | HO.PM.IMPN ---
Subjective Subjective Date of Service: 02/17/22 Interval History: Seen in f/u for acute PE interval history: short of breath, no chest pain, on oxy mask satting 95 percent Review of Systems sob no chest pain Physical Exam Vital Signs: Vital Signs: Last Vital Signs Temp 98.4 F 02/16/22 22:12 Pulse 98 02/17/22 07:33 Resp 20 02/17/22 07:33 BP 149/99 H 02/17/22 07:33 Pulse Ox 95 02/17/22 07:33 O2 Del Method 02/17/22 07:33 O2 Flow Rate 6 02/17/22 05:31 Oxygen Flow Rate 5 02/16/22 16:16 BMI result Body Mass Index 45.9 Const: Other: General: AO X 3, no acute distress Resp: Decrease breath sounds bilaterally CVS: S1,S2,RRR GI: +BS, NT, no distention Skin: No rash Neuro: motor grossly intact Psych: appropriate affect Objective Data Active Medications Acetaminophen (Acetaminophen 325 Mg Tablet) 650 mg PO Q6H PRN PRN Reason: Pain, Mild (Pain Scale 1-3) Albuterol/Ipratropium (Albuterol/Iprat 2.5/0.5mg 3 Ml Ampul.Neb) 3 ml INHALE RQ4H PRN PRN Reason: Wheezing Dextrose (Dextrose 50 % 25 Gm/50 Ml Syringe) 25 gm IVPUSH Q15M PRN; Protocol PRN Reason: per Hypoglycemia Standing Ord. Docusate Sodium (Docusate Sodium 100 Mg Capsule) 100 mg PO DAILY PRN PRN Reason: Constipation Enoxaparin Sodium (Enoxaparin Sodium 120 Mg/0.8 Ml Syringe) 105 mg 1 mg/kg (105 mg) SUBCUT Q12H [facility] Last Admin: 02/17/22 00:08 Dose: Not Given Documented By: SRIDEVI Non-Admin Reason: Previously Administered Fluticasone/Vilanterol (Fluticasone/Vilanterol 200/25 Blst.W.Dev) 1 puff INHALE RDAILY [facility] Last Admin: 02/17/22 07:46 Dose: Not Given Documented By: MK Non-Admin Reason: Med Not Available Glucose (Glucose Gel 15 Gm Gel..Gram.) 15 gm PO Q15M PRN; Protocol PRN Reason: per Hypoglycemia Standing Ord. Insulin Human Lispro (Insulin Lispro 100 Unit/Ml 3 Ml Vial) 0 unit SUBCUT QIDACHS [facility]; Protocol Last Admin: 02/17/22 07:30 Dose: 2 unit Documented By: SIMON Levothyroxine Sodium (Levothyroxine Sodium 75 Mcg Tablet) 75 mcg PO DAILY@0630 [facility] Last Admin: 02/17/22 07:30 Dose: 75 mcg Documented By: SIMON Mirabegron (Mirabegron 25 Mg Tab.Er.24h) 25 mg PO DAILY [facility] Last Admin: 02/17/22 08:42 Dose: 25 mg Documented By: SIMON Non-Formulary Medication (Fluticasone Propionate [Flovent Hfa]) 1 puff INHALE BID [facility] Omeprazole (Omeprazole 20 Mg Capsule.Dr) 20 mg PO DAILY [facility] Last Admin: 02/17/22 08:42 Dose: 20 mg Documented By: SIMON Ondansetron HCl (Ondansetron Hcl 4 Mg/2 Ml Vial) 4 mg IVPUSH Q8H PRN PRN Reason: Nausea and Vomiting Sodium Chloride (0.9 % Sodium Chloride Flush 3 Ml Syringe) 3 ml IVFLUSH QSHIFT [facility] Last Admin: 02/17/22 07:31 Dose: 3 ml Documented By: SIMON Labs CBC & Chem 7: 02/17/22 05:36 02/17/22 05:36 Labs: Laboratory Results - last 24 hr 02/16/22 02/16/22 02/16/22 16:40 17:12 17:12 MCV MCH MCHC RDW Plt Count MPV Immature Gran % (Auto) Neut % (Auto) Lymph % (Auto) [place] % (Auto) Eos % (Auto) Baso % (Auto) Lymph # (Auto) [place] # (Auto) Eos # (Auto) Baso # (Auto) Abs Immat Gran (auto) Absolute Neuts (auto) Absolute Nucleated RBC Nucleated RBC % (auto) PT INR APTT Anion Gap 19 Estim Creat Clear Calc 76.6 Estimated GFR > 60 POC Glucose 173 H Random Glucose 180 H Lactic Acid Calcium 8.5 Total Bilirubin 0.3 AST 18 ALT 10 Alkaline Phosphatase 153 H Troponin I High Sens 29.0 H D B-Natriuretic Peptide 208 H Total Protein 6.0 L Albumin 3.2 L Lipase 19 COVID-19 (ANEL) COVID-19 Clin Com 02/16/22 02/16/22 02/16/22 17:30 18:07 18:07 MCV 87.1 D MCH 26.6 L MCHC 30.6 L RDW 14.4 Plt Count 403 H D MPV 9.8 Immature Gran % (Auto) 1.3 H Neut % (Auto) 86.0 H Lymph % (Auto) 6.6 L [place] % (Auto) 4.6 Eos % (Auto) 0.9 Baso % (Auto) 0.6 Lymph # (Auto) 0.8 L [place] # (Auto) 0.6 Eos # (Auto) 0.1 Baso # (Auto) 0.1 Abs Immat Gran (auto) 0.16 H Absolute Neuts (auto) 10.5 H Absolute Nucleated RBC 0.000 Nucleated RBC % (auto) 0.0 PT 12.2 INR 1.1 APTT 24.8 L Anion Gap Estim Creat Clear Calc Estimated GFR POC Glucose Random Glucose Lactic Acid Calcium Total Bilirubin AST ALT Alkaline Phosphatase Troponin I High Sens B-Natriuretic Peptide Total Protein Albumin Lipase COVID-19 (ANEL) Negative COVID-19 Clin Com See Note 02/16/22 02/16/22 02/17/22 19:53 19:53 00:28 MCV MCH MCHC RDW Plt Count MPV Immature Gran % (Auto) Neut % (Auto) Lymph % (Auto) [place] % (Auto) Eos % (Auto) Baso % (Auto) Lymph # (Auto) [place] # (Auto) Eos # (Auto) Baso # (Auto) Abs Immat Gran (auto) Absolute Neuts (auto) Absolute Nucleated RBC Nucleated RBC % (auto) PT INR APTT Anion Gap Estim Creat Clear Calc Estimated GFR POC Glucose Random Glucose Lactic Acid 0.8 Calcium Total Bilirubin AST ALT Alkaline Phosphatase Troponin I High Sens 54.2 H* D 97.3 H* D B-Natriuretic Peptide Total Protein Albumin Lipase COVID-19 (ANEL) COVID-19 Clin Com 02/17/22 02/17/22 02/17/22 03:04 05:36 05:36 MCV 87.3 MCH 26.7 L MCHC 30.5 L RDW 14.3 Plt Count 397 MPV 10.2 Immature Gran % (Auto) Neut % (Auto) Lymph % (Auto) [place] % (Auto) Eos % (Auto) Baso % (Auto) Lymph # (Auto) [place] # (Auto) Eos # (Auto) Baso # (Auto) Abs Immat Gran (auto) Absolute Neuts (auto) Absolute Nucleated RBC 0.000 Nucleated RBC % (auto) 0.0 PT 13.2 H INR 1.1 APTT 31.3 D Anion Gap Estim Creat Clear Calc Estimated GFR POC Glucose Random Glucose Lactic Acid Calcium Total Bilirubin AST ALT Alkaline Phosphatase Troponin I High Sens 105.9 H* B-Natriuretic Peptide Total Protein Albumin Lipase COVID-19 (ANEL) COVID-19 Clin Com 02/17/22 02/17/22 02/17/22 05:36 05:36 07:01 MCV MCH MCHC RDW Plt Count MPV Immature Gran % (Auto) Neut % (Auto) Lymph % (Auto) [place] % (Auto) Eos % (Auto) Baso % (Auto) Lymph # (Auto) [place] # (Auto) Eos # (Auto) Baso # (Auto) Abs Immat Gran (auto) Absolute Neuts (auto) Absolute Nucleated RBC Nucleated RBC % (auto) PT INR APTT Anion Gap 18 Estim Creat Clear Calc 84.7 Estimated GFR > 60 POC Glucose 186 H Random Glucose 227 H Lactic Acid Calcium 8.6 Total Bilirubin AST ALT Alkaline Phosphatase Troponin I High Sens 108.2 H* B-Natriuretic Peptide Total Protein Albumin Lipase COVID-19 (ANEL) COVID-19 Clin Com Assessment and Plan (1) Pulmonary embolism: Status: Acute (2) New onset type 2 diabetes mellitus: Status: Acute Plan 76-year-old female with recent admission to the hospital for choledocholithiasis complicated by ileus and pancreatitis post ERCP returns to the hospital today with shortness of breath found to have bilateral PE # bilateral PE #Aute hypoxic respiratory failure d/t above - no evidence of right heart strain - continue Lovenox, wean of O2 as tolerated - echocardiogram # elevated troponin - likely secondary to PE/hypoxia - BNP slightly elevated - patient denies any chest pain - echocardiogram will be ordered # chronic pancreatitis - patient developed pancreatitis post ERCP in January - at this time lipase is normal, patient denies a little pain - no evidence of pseudocyst or pancreatic necrosis - monitor # consolidation seen on CT - not confor pneumonia at this time as patient afebrile, no leukocytosis, denies any cough - monitor respiratory status # diabetes - recently diagnosed - hold metformin in light of contrast, if needed add Lantus - sliding scale insulin - diabetic diet # hypothyroidism - continue levothyroxine DVT prophylaxis: Lovenox Need for inaptient: a Quality Stroke Does the patient have a stroke diagnosis?: No VTE Prior VTE?: No VTE Risk Level:: Medical - moderate - high VTE Device Contraindication: Treatment Not Indicated VTE Drug Contraindication: N/A - Med Ordered
--- NOTE | 2022-02-17 09:30 | PHA.MEDREC ---
Pharmacy Consult ? Medication Reconciliation Pharmacy has completed the medication reconciliation. MED LIST OBTAINED FROM [facility]
[2022-02-17 12:25] LABS: Glucose, Whole Blood 152 mg/dL (60-115)
[2022-02-17] MEDS: Fluticasone/Vilanterol 200/25 BLST.W.DEV 1 PUFF INHALE (12:50)
[2022-02-17] MEDS: Enoxaparin Sodium 120 MG/0.8 ML SYRINGE 105 MG SUBCUT (12:50)
[2022-02-17] MEDS: oxyCODONE HCl Immed Release 5 MG TABLET PO (15:56)
--- NOTE | 2022-02-17 16:03 | PC.NURSE ---
pt reporting 8/[address] Dr[address] Stewart aware, Oxycodone 5mg ordered via telephone, read back by this RN. This RN and CARLOS Villanueva repositioned pt in bed for comfort.
[2022-02-17] MEDS: Morphine Sulfate 2 MG/ML CARTRIDGE IVPUSH (17:32)
--- NOTE | 2022-02-17 18:02 | PC.NURSE ---
pt reporting increased pain after Oxycodone, Dr. Stewart aware, Morphine ordered and administered per JUL. Pt is now sleeping respirations even and unlabored 20 per minutes, O2 97% on 7L via Oxymask
[2022-02-17 19:26] VITALS: PULSE 103; RESP 19; O2SAT 100
[2022-02-17 19:27] VITALS: O2SAT 100
[2022-02-17 19:29] LABS: Glucose, Whole Blood 131 mg/dL (60-115)
--- NOTE | 2022-02-17 21:11 | PC.NURSE ---
this nurse attempted report to [facility] [place] at [phone] and [phone], no answer.
[2022-02-17 23:04] LABS: INTERNATIONAL NORM RATIO 1.1 (0.9-1.1); Prothrombin Time 12.2 SEC (10.0-13.1)
[2022-02-17 23:22] VITALS: BP 122/68; PULSE 102; RESP 20; TEMP 36.6; O2SAT 99
[2022-02-18] MEDS: Enoxaparin Sodium 120 MG/0.8 ML SYRINGE 105 MG SUBCUT ×3 (00:20→23:16)
[2022-02-18 02:51] VITALS: BP 140/95; PULSE 104; RESP 20; TEMP 36.6; O2SAT 98
[2022-02-18] MEDS: 0.9 % Sodium Chloride Flush 3 ML SYRINGE IVFLUSH ×4 (03:00→20:07)
[2022-02-18 03:48] LABS: Glucose, Whole Blood 160 mg/dL (60-115)
[2022-02-18 05:35] VITALS: BMI 45.1
[2022-02-18] MEDS: Throat Lozenge, Medicated LOZENGE 1 LOZENGE MUCOUS MEM (06:10)
[2022-02-18] MEDS: Levothyroxine Sodium 75 MCG TABLET PO (06:10)
[2022-02-18 07:00] VITALS: BMI 44.9
--- NOTE | 2022-02-18 07:00 | CA_ITS ---
Transthoracic Echocardiogram Patient (Last, First, Middle): Heather Hunt M Gender: Female Date of : 1945 Age: 76 Procedure Date: 02/18/2022 Procedure Type: Transthoracic Echocardiogram [place] [facility] [place]: 154.94 cm Weight: 107.5 kg BSA: 2.03 m2 Heart Rate: bpm BP: 140 / 95 mmHg Section Hand Helper: SB Referring MD: Estefanía Delacruz MD Symptoms: PE Study Quality: Adequate w contrast ECG Rhythm: Sinus Conclusions: - The left ventricular systolic function is low normal. The visually estimated ejection fraction is between 50-55%. - There is mildly decreased right ventricular systolic function. - There is mild aortic valve stenosis. - There is mild mitral annular calcification. - Mild pulmonary hypertension is present. Findings Procedure Information Contrast agent, definity, is being given per protocol without apparent complications. Left Ventricle Normal left ventricular cavity size. The left ventricular systolic function is low normal. The visually estimated ejection fraction is between 50-55%. There is no evidence of regional wall motion abnormalities. Diastolic function is normal for age. There is mild septal asymmetric hypertrophy. Right Ventricle Normal right ventricular cavity size. There is mildly decreased right ventricular systolic function. Atria Both atria are normal in size. Aortic Valve There is moderate calcification of the aortic valve. There is mild aortic valve stenosis. There is no aortic valve regurgitation. Mitral Valve There is mild mitral annular calcification. There is no mitral valve regurgitation. There is no mitral valve stenosis. Pulmonic Valve The pulmonic valve is likely normal. Tricuspid Valve There is mild tricuspid valve regurgitation. Mild pulmonary hypertension is present. Great Vessels The asc aorta is normal in size. Venous The inferior vena cava is normal in size and collapses greater than 50% with inspiration. Pericardium/Pleural There is no evidence of pericardial effusion. Prior Study Comparison Changes noted compared to prior study dated: 01/20/2022. See comments on LV/RV function. Measurements 2D Linear Measurements IVSd: 1.14 0.6-0.9/0.6-1.0 cm LVIDd: 3.49 3.9-5.3/4.2-5.9 cm LVIDd Index: 1.72 2.4-3.2/2.2-3.1 cm/m2 LVIDs: 2.44 2.0-3.6 cm LVPWd: 0.88 0.7-1.1 cm Ao Root: 2.80 2.1-3.5 cm LA Diam: 3.50 2.7-3.8/3.0-4.0 cm LAIDs Index: 1.72 1.5-2.3 cm/m2 LV Mass: 130.15 67-162/88-224 g LV Mass Index: 64.11 43-95/49-115 g/m2 LVOT Diam: 1.90 3.0+(-)1.3 cm 2D Systolic Function EF 4C: 58.90 >55% EF 2C: 53.80 >55% EF BiP: 57.00 >55% Mitral Valve MV Pk E: 0.57 MV PK A: 0.99 MV Decel Time: 168.00 E/A: 0.60 E'Lateral: 8.27 E'Medial: 5.98 E/E' Med: 9.60 E/E' Lat: 6.90 PHT: 49.00 MVA PHT: 4.49 Decel Charles: 3.42 Aortic Valve AoV Pk Jonathan: 2.22 AoV Mn Jonathan: 1.54 AoV VTI: 0.36 AoV Pk Grad: 20.00 Aov Mn Grad: 11.00 ZHANG Cont.VTI: 1.56 LVOT LVOT Pk Jonathan: 1.14 LVOT Mn Jonathan: 0.80 LVOT VTI: 0.20 LVOT Pk Grad: 5.00 LVOT Mn Grad: 3.00 LVOT Diam: 1.90 LVOT Area: 2.84 Diastolic Function MV Pk E: 0.57 MV Pk A: 0.99 E/A: 0.60 E'Medial: 5.98 E/E' Med: 9.60 E' Laterial: 8.27 E/E' Lat: 6.90 Right Ventricle TAPSE (mm): 15.70 TVS' Jonathan: 9.60 Tricuspid Valve TR Pk Jonathan: 2.99 TR Pk Grad: 36.00 RA Press: 3.00 RVSP: 39.00 Great Vessels Aorta Ao Root-2D: 2.80 2.0-3.7 cm Ao Asc: 3.20 2.1-3.4 cm Pulmonary Valve PV Pk Jonathan: 0.97 Peak PV Grad: 4.00 Updated in Other Vendor System with Status of Final Maximiliano Alvarado MD electronically signed on 02/18/2022 11:51:11 AM with status of Final
[2022-02-18 07:12] LABS: Glucose, Whole Blood 160 mg/dL (60-115)
[2022-02-18 07:17] VITALS: BP 129/64; PULSE 101; RESP 20; TEMP 37; O2SAT 98
[2022-02-18] MEDS: Insulin Lispro 100 UNIT/ML 3 ML VIAL SUBCUT (08:05)
[2022-02-18] MEDS: Omeprazole 20 MG CAPSULE.DR PO (08:05)
[2022-02-18] MEDS: Mirabegron 25 MG TAB.ER.24H PO (08:05)
[2022-02-18] MEDS: oxyCODONE HCl Immed Release 5 MG TABLET PO (08:06)
[2022-02-18] MEDS: Fluticasone/Vilanterol 200/25 BLST.W.DEV 1 PUFF INHALE (08:16)
[2022-02-18 08:37] VITALS: PULSE 103; RESP 18; O2SAT 95
--- NOTE | 2022-02-18 08:44 | MHC.CM.PN ---
CM met with Patient at bedside and addressed IMM with her, providing her with the original and placing a copy on the chart. Patient lives alone in a 2 family house with her Daughter/HCP/Jessy on the first floor. Home, self care is the goal and CM has initiated and will follow for dc planning. Patient states that she cannot receive the Covid vax and her PCP is Dr. Shania Briggs.
--- NOTE | 2022-02-18 11:24 | MHC.CM.PN ---
CM received a call from Patient's Daughter/HCP/Jessy. Patient is a bed hold at [facility] and the goal is for Patient to return there at the time of dc to complete STR. CM will follow.
[2022-02-18 11:27] VITALS: BP 137/60; PULSE 99; RESP 16; TEMP 36.9; O2SAT 98
[2022-02-18 11:46] LABS: Glucose, Whole Blood 129 mg/dL (60-115)
--- NOTE | 2022-02-18 12:27 | P.PNIM_ITS ---
Subjective Subjective Date of Service: 02/18/22 Interval History: Seen in f/u for acute PE interval history: no shortness of breath, no abd pain, shoulder pain is better. Still on high amount of O2 Review of Systems sob no chest pain Physical Exam Vital Signs: Vital Signs: Last Vital Signs Temp 98.5 F 02/18/22 11:27 Pulse 99 02/18/22 11:27 Resp 16 02/18/22 11:27 BP 137/60 02/18/22 11:27 Pulse Ox 98 02/18/22 11:27 O2 Del Method 02/18/22 11:27 O2 Flow Rate 7 02/18/22 11:27 Oxygen Flow Rate 5 02/16/22 16:16 BMI result Body Mass Index 44.9 Const: Other: General: AO X 3, no acute distress Resp: Decrease breath sounds bilaterally CVS: S1,S2,RRR GI: +BS, NT, no distention Skin: No rash Neuro: motor grossly intact Psych: appropriate affect Objective Data Active Medications Acetaminophen (Acetaminophen 325 Mg Tablet) 650 mg PO Q6H PRN PRN Reason: Pain, Mild (Pain Scale 1-3) Albuterol/Ipratropium (Albuterol/Iprat 2.5/0.5mg 3 Ml Ampul.Neb) 3 ml INHALE RQ4H PRN PRN Reason: Wheezing Benzocaine (Throat Lozenge, Medicated Lozenge) 1 lozenge MUCOUS MEM Q2H PRN PRN Reason: Sore Throat Last Admin: 02/18/22 06:10 Dose: 1 lozenge Documented By: AURELIA Dextrose (Dextrose 50 % 25 Gm/50 Ml Syringe) 25 gm IVPUSH Q15M PRN; Protocol PRN Reason: per Hypoglycemia Standing Ord. Docusate Sodium (Docusate Sodium 100 Mg Capsule) 100 mg PO DAILY PRN PRN Reason: Constipation Enoxaparin Sodium (Enoxaparin Sodium 120 Mg/0.8 Ml Syringe) 105 mg 1 mg/kg (105 mg) SUBCUT Q12H [facility] Last Admin: 02/18/22 12:12 Dose: 105 mg Documented By: RUBI Fluticasone/Vilanterol (Fluticasone/Vilanterol 200/25 Blst.W.Dev) 1 puff INHALE RDAILY [facility] Last Admin: 02/18/22 08:16 Dose: 1 puff Documented By: RAMESH Glucose (Glucose Gel 15 Gm Gel..Gram.) 15 gm PO Q15M PRN; Protocol PRN Reason: per Hypoglycemia Standing Ord. Insulin Human Lispro (Insulin Lispro 100 Unit/Ml 3 Ml Vial) 0 unit SUBCUT QIDACHS [facility]; Protocol Last Admin: 02/18/22 11:56 Dose: Not Given Documented By: RUBI Non-Admin Reason: No Insulin Coverage Levothyroxine Sodium (Levothyroxine Sodium 75 Mcg Tablet) 75 mcg PO DAILY@0630 [facility] Last Admin: 02/18/22 06:10 Dose: 75 mcg Documented By: AURELIA Mirabegron (Mirabegron 25 Mg Tab.Er.24h) 25 mg PO DAILY [facility] Last Admin: 02/18/22 08:05 Dose: 25 mg Documented By: RUBI Morphine Sulfate (Morphine Sulfate 2 Mg/Ml Cartridge) 2 mg IVPUSH Q6H PRN; Protocol PRN Reason: Pain, Severe (Pain Scale 7-10) Last Admin: 02/17/22 17:32 Dose: 2 mg Documented By: YESSICA Omeprazole (Omeprazole 20 Mg Capsule.Dr) 20 mg PO DAILY [facility] Last Admin: 02/18/22 08:05 Dose: 20 mg Documented By: RUBI Ondansetron HCl (Ondansetron Hcl 4 Mg/2 Ml Vial) 4 mg IVPUSH Q8H PRN PRN Reason: Nausea and Vomiting Oxycodone HCl (Oxycodone Hcl Immed Release 5 Mg Tablet) 5 mg PO Q6H PRN PRN Reason: Pain, Severe (Pain Scale 7-10) Last Admin: 02/18/22 08:06 Dose: 5 mg Documented By: RUBI Sodium Chloride (0.9 % Sodium Chloride Flush 3 Ml Syringe) 3 ml IVFLUSH [facility] Last Admin: 02/18/22 08:05 Dose: 3 ml Documented By: RUBI Labs CBC & Chem 7: 02/17/22 05:36 02/17/22 05:36 Labs: Laboratory Results - last 24 hr 10/10/22 10/10/22 10/11/22 18:46 22:34 02:58 PT 12.2 INR 1.1 POC Glucose 131 H 160 H 02/18/22 02/18/22 06:58 11:29 PT INR POC Glucose 160 H 129 H Microbiology Microbiology Results: Microbiology 02/16/22 20:59 Blood Culture - Final Blood - Venous Coag negative Staphylococcus 02/16/22 19:53 Blood Culture - Preliminary Blood - Venous No growth after 24 hours. Assessment and Plan (1) Pulmonary embolism: Status: Acute Plan 76-year-old female with recent admission to the hospital for choledocholithiasis complicated by ileus and pancreatitis post ERCP returns to the hospital today with shortness of breath found to have bilateral PE # bilateral PE #Aute hypoxic respiratory failure d/t above - no evidence of right heart strain - continue Lovenox, wean of O2 as tolerated - echocardiogram pending # elevated troponin - likely secondary to PE/hypoxia - BNP slightly elevated - patient denies any chest pain - echocardiogram will be ordered # chronic pancreatitis - patient developed pancreatitis post ERCP in January - at this time lipase is normal, patient denies pain - no evidence of pseudocyst or pancreatic necrosis - monitor # consolidation seen on CT - not pneumonia at this time as patient afebrile, no leukocytosis, denies any cough - monitor respiratory status # diabetes - recently diagnosed - hold metformin in light of contrast, if needed add Lantus - sliding scale insulin - diabetic diet # hypothyroidism - continue levothyroxine DVT prophylaxis: Lovenox Need for inaptient: Pulmonary embolis with hypoxia needing O2, once weaned can be considered for dc home Quality Stroke Does the patient have a stroke diagnosis?: No VTE Prior VTE?: No VTE Risk Level:: Medical - moderate - high VTE Device Contraindication: Treatment Not Indicated VTE Drug Contraindication: N/A - Med Ordered
[2022-02-18 15:27] VITALS: BP 126/59; PULSE 110; RESP 16; TEMP 36.2; O2SAT 95
[2022-02-18 16:21] LABS: Glucose, Whole Blood 134 mg/dL (60-115)
[2022-02-18 19:59] LABS: Glucose, Whole Blood 144 mg/dL (60-115)
[2022-02-18] MEDS: Erythromycin Base 250 MG TABLET PO (20:07)
[2022-02-18] MEDS: Mirtazapine 7.5 MG TABLET PO (20:07)
[2022-02-18 23:35] VITALS: BP 121/61; PULSE 98; RESP 18; TEMP 36.5; O2SAT 98
[2022-02-19] VITALS (7 sets, daily range): BP systolic 119–142; BP diastolic 60–80; PULSE 86–102; RESP 16–20; TEMP 36.3–36.9; O2SAT 92–98
[2022-02-19] MEDS: Levothyroxine Sodium 75 MCG TABLET PO (05:18)
[2022-02-19 07:19] LABS: Glucose, Whole Blood 131 mg/dL (60-115)
[2022-02-19] MEDS: Fluticasone/Vilanterol 200/25 BLST.W.DEV 1 PUFF INHALE (08:16)
[2022-02-19] MEDS: Mirabegron 25 MG TAB.ER.24H PO (09:33)
[2022-02-19] MEDS: Sertraline HCL 50 MG TABLET PO (09:33)
[2022-02-19] MEDS: Erythromycin Base 250 MG TABLET PO ×2 (09:33→21:08)
[2022-02-19] MEDS: metFORMIN HCl 500 MG TABLET PO ×2 (09:33→21:08)
[2022-02-19] MEDS: Omeprazole 20 MG CAPSULE.DR PO (09:33)
[2022-02-19] MEDS: 0.9 % Sodium Chloride Flush 3 ML SYRINGE IVFLUSH ×2 (09:37→21:09)
[2022-02-19 11:06] LABS: Glucose, Whole Blood 144 mg/dL (60-115)
[2022-02-19] MEDS: Enoxaparin Sodium 120 MG/0.8 ML SYRINGE 105 MG SUBCUT (11:15)
--- NOTE | 2022-02-19 12:42 | P.PNIM_ITS ---
Subjective Subjective Date of Service: 02/19/22 Interval History: Seen in f/u for acute PE interval history: no shortness of breath, no abd pain, shoulder pain is better. Still on high amount of O2 Review of Systems sob no chest pain Physical Exam Vital Signs: Vital Signs: Last Vital Signs Temp 98.5 F 02/19/22 11:20 Pulse 102 H 02/19/22 11:20 Resp 20 02/19/22 11:20 BP 128/65 02/19/22 11:20 Pulse Ox 94 02/19/22 11:20 O2 Del Method 02/19/22 11:20 O2 Flow Rate 3 02/19/22 11:20 Oxygen Flow Rate 5 02/16/22 16:16 BMI result Body Mass Index 44.9 Const: Other: General: AO X 3, no acute distress Resp: Decrease breath sounds bilaterally CVS: S1,S2,RRR GI: +BS, NT, no distention Skin: No rash Neuro: motor grossly intact Psych: appropriate affect Objective Data Active Medications Acetaminophen (Acetaminophen 325 Mg Tablet) 650 mg PO Q6H PRN PRN Reason: Pain, Mild (Pain Scale 1-3) Albuterol/Ipratropium (Albuterol/Iprat 2.5/0.5mg 3 Ml Ampul.Neb) 3 ml INHALE RQ4H PRN PRN Reason: Wheezing Benzocaine (Throat Lozenge, Medicated Lozenge) 1 lozenge MUCOUS MEM Q2H PRN PRN Reason: Sore Throat Last Admin: 02/18/22 06:10 Dose: 1 lozenge Documented By: AURELIA Bisacodyl (Bisacodyl 10 Mg Supp.Rect) 10 mg ID DAILY PRN PRN Reason: Constipation Dextrose (Dextrose 50 % 25 Gm/50 Ml Syringe) 25 gm IVPUSH Q15M PRN; Protocol PRN Reason: per Hypoglycemia Standing Ord. Docusate Sodium (Docusate Sodium 100 Mg Capsule) 100 mg PO DAILY PRN PRN Reason: Constipation Enoxaparin Sodium (Enoxaparin Sodium 120 Mg/0.8 Ml Syringe) 105 mg 1 mg/kg (105 mg) SUBCUT Q12H [facility] Last Admin: 02/19/22 11:15 Dose: 105 mg Documented By: GARCIA Erythromycin (Erythromycin Base 250 Mg Tablet) 250 mg PO BID [facility] Last Admin: 10/12/22 09:33 Dose: 250 mg Documented By: GARCIA Fluticasone/Vilanterol (Fluticasone/Vilanterol 200/25 Blst.W.Dev) 1 puff INHALE RDAILY [facility] Last Admin: 02/19/22 08:16 Dose: 1 puff Documented By: LYNNETTE Glucagon (Glucagon,Human Recombinant 1 Mg/Ml Vial) 1 mg SUBCUT Q20M PRN PRN Reason: BG < 60 Glucose (Glucose Gel 15 Gm Gel..Gram.) 15 gm PO Q15M PRN; Protocol PRN Reason: per Hypoglycemia Standing Ord. Insulin Human Lispro (Insulin Lispro 100 Unit/Ml 3 Ml Vial) 0 unit SUBCUT QIDACHS [facility]; Protocol Last Admin: 02/19/22 11:09 Dose: Not Given Documented By: GARCIA Non-Admin Reason: No Insulin Coverage Levothyroxine Sodium (Levothyroxine Sodium 75 Mcg Tablet) 75 mcg PO DAILY@0630 [facility] Last Admin: 02/19/22 05:18 Dose: 75 mcg Documented By: TAY Magnesium Hydroxide (Milk Of Magnesia 30 Ml Oral.Susp) 30 ml PO DAILY PRN PRN Reason: Constipation Metformin HCl (Metformin Hcl 500 Mg Tablet) 500 mg PO BID [facility] Last Admin: 02/19/22 09:33 Dose: 500 mg Documented By: GARCIA Mirabegron (Mirabegron 25 Mg Tab.Er.24h) 25 mg PO DAILY [facility] Last Admin: 02/19/22 09:33 Dose: 25 mg Documented By: GARCIA Mirtazapine (Mirtazapine 7.5 Mg Tablet) 7.5 mg PO BEDTIME [facility] Last Admin: 02/18/22 20:07 Dose: 7.5 mg Documented By: TAY Morphine Sulfate (Morphine Sulfate 2 Mg/Ml Cartridge) 2 mg IVPUSH Q6H PRN; Protocol PRN Reason: Pain, Severe (Pain Scale 7-10) Last Admin: 02/17/22 17:32 Dose: 2 mg Documented By: YESSICA Omeprazole (Omeprazole 20 Mg Capsule.) 20 mg PO DAILY [facility] Last Admin: 02/19/22 09:33 Dose: 20 mg Documented By: GARCIA Ondansetron HCl (Ondansetron Hcl 4 Mg/2 Ml Vial) 4 mg IVPUSH Q8H PRN PRN Reason: Nausea and Vomiting Oxycodone HCl (Oxycodone Hcl Immed Release 5 Mg Tablet) 5 mg PO Q6H PRN PRN Reason: Pain, Severe (Pain Scale 7-10) Last Admin: 02/18/22 08:06 Dose: 5 mg Documented By: RUBI Sertraline HCl (Sertraline Hcl 50 Mg Tablet) 50 mg PO DAILY [facility] Last Admin: 02/19/22 09:33 Dose: 50 mg Documented By: GARCIA Sodium Biphosphate/Sodium Phosphate (Sodium Phosphate,[place]-Dibasic 133 Ml Enema) 118 ml ID BEDTIME PRN PRN Reason: Constipation Sodium Chloride (0.9 % Sodium Chloride Flush 3 Ml Syringe) 3 ml IVFLUSH QSHIFT [facility] Last Admin: 02/19/22 09:37 Dose: 3 ml Documented By: GARCIA Labs CBC & Chem 7: 02/17/22 05:36 02/17/22 05:36 Labs: Laboratory Results - last 24 hr 02/18/22 02/18/22 02/19/22 16:11 19:55 07:15 POC Glucose 134 H 144 H 131 H 02/19/22 11:02 POC Glucose 144 H Microbiology Microbiology Results: Microbiology 02/16/22 19:53 Blood Culture - Preliminary Blood - Venous No growth after 48 hours. Assessment and Plan (1) Pulmonary embolism: Status: Acute Plan 76-year-old female with recent admission to the hospital for choledocholithiasis complicated by ileus and pancreatitis post ERCP returns to the hospital today with shortness of breath found to have bilateral PE # bilateral PE #Aute hypoxic respiratory failure d/t above - no evidence of right heart strain - continue Lovenox, wean of O2 as tolerated - echocardiogram, EF 50 no strain -transition to Eliquis today # elevated troponin - likely secondary to PE/hypoxia - BNP slightly elevated - patient denies any chest pain - echocardiogram will be ordered # chronic pancreatitis - patient developed pancreatitis post ERCP in January - at this time lipase is normal, patient denies pain - no evidence of pseudocyst or pancreatic necrosis - monitor # consolidation seen on CT - not pneumonia at this time as patient afebrile, no leukocytosis, denies any cough - monitor respiratory status # diabetes - recently diagnosed - hold metformin in light of contrast, if needed add Lantus - sliding scale insulin - diabetic diet # hypothyroidism - continue levothyroxine #Diarrhea, new--check C dif, DC tommorrow DVT prophylaxis: Lovenox Need for inaptient: Pulmonary embolis with hypoxia needing O2, once weaned can be considered for dc to snf, work for new diarrhea Quality Stroke Does the patient have a stroke diagnosis?: No VTE Prior VTE?: No VTE Risk Level:: Medical - moderate - high VTE Device Contraindication: Treatment Not Indicated VTE Drug Contraindication: N/A - Med Ordered
[2022-02-19 16:05] LABS: Glucose, Whole Blood 147 mg/dL (60-115)
[2022-02-19 20:43] LABS: Glucose, Whole Blood 161 mg/dL (60-115)
[2022-02-19] MEDS: Insulin Lispro 100 UNIT/ML 3 ML VIAL SUBCUT (21:09)
[2022-02-19] MEDS: Mirtazapine 7.5 MG TABLET PO (21:09)
[2022-02-19] MEDS: oxyCODONE HCl Immed Release 5 MG TABLET PO (21:22)
[2022-02-19] MEDS: Apixaban 5 MG TABLET 10 MG PO (23:39)
[2022-02-20 03:36] VITALS: BP 138/66; PULSE 88; RESP 14; TEMP 36.2; O2SAT 96
[2022-02-20 05:48] VITALS: BMI 45.5
[2022-02-20] MEDS: Levothyroxine Sodium 75 MCG TABLET PO (06:01)
[2022-02-20 07:17] LABS: Glucose, Whole Blood 124 mg/dL (60-115)
[2022-02-20] MEDS: metFORMIN HCl 500 MG TABLET PO (07:45)
[2022-02-20] MEDS: Erythromycin Base 250 MG TABLET PO (07:45)
[2022-02-20] MEDS: Omeprazole 20 MG CAPSULE.DR PO (07:45)
[2022-02-20] MEDS: Apixaban 5 MG TABLET 10 MG PO (07:45)
[2022-02-20] MEDS: Mirabegron 25 MG TAB.ER.24H PO (07:45)
[2022-02-20] MEDS: Sertraline HCL 50 MG TABLET PO (07:45)
[2022-02-20] MEDS: 0.9 % Sodium Chloride Flush 3 ML SYRINGE IVFLUSH ×2 (07:46→12:49)
[2022-02-20 08:00] VITALS: BP 130/67; PULSE 88; RESP 16; TEMP 36.4; O2SAT 98
[2022-02-20] MEDS: Fluticasone/Vilanterol 200/25 BLST.W.DEV 1 PUFF INHALE (08:06)
[2022-02-20 08:11] VITALS: PULSE 86; RESP 20; O2SAT 91
[2022-02-20 08:37] VITALS: BP 130/67; PULSE 88; RESP 16; TEMP 36.4
[2022-02-20 10:44] LABS: Hematocrit 32.6 % (37.0-47.0); Hemoglobin 10.1 g/dl (12.0-16.0); Mean Corpuscular Hemoglobin 26.8 pg (27.0-33.0); Mean Corpuscular Volume 86.5 fL (80.0-98.0); Platelet Count 362 X10*3/uL (160-400); Red Blood Count 3.77 X10*6/uL (4.20-5.50); Red Cell Distribution Width 14.6 % (11.0-16.0); White Blood Count 10.2 X10*3/uL (4.8-10.8)
--- NOTE | 2022-02-20 11:31 | MHC.CM.PN ---
Pt will return to [facility] @ 3PM. Left VM for daughter. RN aware. Secure message sent to for covid swab order.
[2022-02-20 11:43] LABS: Glucose, Whole Blood 157 mg/dL (60-115)
[2022-02-20 11:54] VITALS: BP 149/61; PULSE 92; RESP 16; TEMP 35.6; O2SAT 97
[2022-02-20] MEDS: Insulin Lispro 100 UNIT/ML 3 ML VIAL SUBCUT (12:49)
[2022-02-20 13:47] VITALS: O2SAT 93
--- NOTE | 2022-02-20 13:48 | PM.DS ---
DS: Providers Provider Date of Service: 02/20/22 Date of admission: 02/16/22 23:44 Primary care physician: Shania Edmonds MD DS: Diagnosis Discharge Diagnosis (1) Pulmonary embolism: Status: Acute DS: Summary Hospital Course Hospital Course: Admission HPI Chief Complaint: sob This is a 76-year-old female with past medical history of mild persistent asthma, hypothyroidism, GERD, hiatal hernia, bilateral calcific tendinitis, urge incontinence, with recent admission to the hospital for choledocholithiasis, status post ERCP on 01/17, with so enterectomy and removal of a 12 mm stone, complicated by acute pancreatitis and patient developed ileus and hypocalcemia post surgery, requiring NG tube placement and TPN with resolution of her ileus, and advancement of her diet, patient was discharged to SNF for short-term rehab on 02/03, returns today stating difficulty breathing.? Patient reports shortness of breath x1 day, no cough, no sputum production, denies any chest pain, no abdominal pain nausea or vomiting, no diarrhea constipation, no urinary symptoms.? And no lower extremity edema.? No orthopnea PND On arrival to the ED patient found to have a heart rate 116, respiratory rate of 28, satting 90% on on 5 L of oxygen, dropping to 82% on room air. Labs are significant for WBC count of 12.2, troponin of 29, increased to 54, 05/15/1996 respectively, chest CT angiogram shows multiple bilateral pulmonary emboli, with no evidence of right heart strain, slightly increased volume of fluid in the mesentery related to patient's pancreatitis, no pseudocyst formation, no evidence of pancreatic necrosis, Patient started on Lovenox and will be admitted for further management Hospitalization: She presented with shortness of breath and Hypoxia while at rehab following prolonged hospitalization for complicated pancreatitis. Work up revealed bilateral pulmonary embolism like related to recent ilness with limited mobility. She was initiated on Lovenox from 02/16 to 02/19 for and has now been transitioned to Eliquis 10 bid for total for 7 more ddays, then and to follow by 5 mg twice daily for total of 6 months. She has been hemodynamically stable. No right ventricular strain on Echo # elevated troponin--Likely from the PE, hypoxia and Echo show no WMA, with normal EF of 50 to 55 # Recent Post ERCP Pancreaititis with prolonged hospitalization with ileus # consolidation seen on CT--with fever, no leukocytois, no cough likely related to PE and No antibiotics given # Diabetes--continue Metformin and SSI # hypothyroidism - continue levothyroxine #Diarrhea, new--check C dif, DC tommorrow Time Spent with Patient Time attestation: Total time spent providing and/or coordinating discharge services: Discharge coordination time: Greater than 30 minutes Quality: Safe Use of Opioids Does Pt have an Active Cancer Diagnosis on the Problem List?: No Quality: Stroke Does the patient have a stroke diagnosis?: No Physical Exam Vital Signs: Vital Signs: Last Vital Signs Temp 96.1 F L 02/20/22 11:54 Pulse 92 02/20/22 11:54 Resp 16 02/20/22 11:54 BP 149/61 H 02/20/22 11:54 Pulse Ox 93 02/20/22 13:47 O2 Del Method 02/20/22 13:47 O2 Flow Rate 3 02/20/22 13:47 Oxygen Flow Rate 5 02/16/22 16:16 BMI result Body Mass Index 45.5 DS: Data Data Completed and Pending Completed studies during hospitalization [Text1]: Procedures Dilation of Common Bile Duct, Via Natural or Artificial Opening Endoscopic (01/15/22) Insertion of Infusion Device into Superior Vena Cava, Percutaneous Approach (01/15/22) Introduction of Remdesivir Anti-infective into Peripheral Vein, Percutaneous Approach, [employer] 5 (08/28/21) Ultrasonography of Superior Vena Cava, Guidance (01/15/22) Labs on day of discharge: Laboratory Results - last 24 hr 02/19/22 02/19/22 02/20/22 15:42 20:40 07:13 WBC RBC Hgb Hct MCV MCH MCHC RDW Plt Count MPV Absolute Nucleated RBC Nucleated RBC % (auto) POC Glucose 147 H 161 H 124 H 02/20/22 02/20/22 10:30 11:26 WBC 10.2 RBC 3.77 L Hgb 10.1 L Hct 32.6 L MCV 86.5 MCH 26.8 L MCHC 31.0 RDW 14.6 Plt Count 362 MPV 10.0 Absolute Nucleated RBC 0.000 Nucleated RBC % (auto) 0.0 POC Glucose 157 H Preliminary micro results at discharge 02/16/22 19:53 Blood Culture - Preliminary Blood - Venous No growth after 48 hours. Discharge Plan Discharge Anticipated Discharge Date/Time: 02/20/22 13:11 Patient Disposition: Xfer SNF Discharge Diagnosis: Pulmonary embolism Referrals: Shania Alberts MD [Primary Care Provider] - 1 Week Discharge Medications: New apixaban 5 mg (74 tabs) tablets,dose pack 5 mg PO BID Qty: 72 0RF Rx Instructions: take 2 tabs (10 mg) bid x 6 days (12 more doses), then 1 tab (5mg) twice daily for 6 months. Continued levothyroxine 75 mcg tablet 1 tab PO DAILY@0630 omeprazole 20 mg capsule,delayed release(DR/EC) 1 cap PO BID@0630,1630 Myrbetriq 25 mg tablet extended release 24 hr 1 tab PO DAILY metformin 500 mg tablet 500 mg PO BID Qty: 60 0RF fluticasone propion-salmeterol [Advair Diskus] 250-50 mcg/dose Blister With Device 1 inh INHALATION BID ondansetron HCl 4 mg Tablet 4 mg PO Q8H PRN (Reason: Nausea) ondansetron HCl 4 mg Tablet 4 mg PO DAILY acetaminophen 500 mg Tablet 1,000 mg PO TID erythromycin 250 mg Tablet 250 mg PO BID magnesium hydroxide [Milk of Magnesia] 400 mg/5 mL Suspension 30 ml PO DAILY PRN (Reason: Constipation) bisacodyl [Dulcolax (bisacodyl)] 10 mg Suppository 10 mg [place] DAILY PRN (Reason: Constipation) sertraline 50 mg Tablet 50 mg PO DAILY mirtazapine 7.5 mg Tablet 7.5 mg PO BEDTIME Combivent Respimat 20-100 mcg/actuation Mist 2 puff INHALATION Q6H PRN (Reason: Shortness Of Breath) dextrose [Glucose Gel] 40 % Gel 10 g PO Q15M PRN (Reason: BG <60 AND CONSCIOUS) Rx Instructions: until symptoms of low blood sugar are controlled Fleet Enema 19-7 gram/118 mL Enema 118 ml WA BEDTIME PRN (Reason: Constipation) Glucagon (HCl) Emergency Kit 1 mg Recon Soln 1 mg SUBCUT Q20M PRN (Reason: BG < 60) Rx Instructions: until target blood sugar attained Discharge Orders: Discharge Order (Routine); Ordered 02/20/22 Ordered By: Neri Mlapah Diet: Advance to usual diet Activity on Discharge: As tolerated Stand Alone Forms: Patient Portal Discharge page Care Plan Goals: Full recovery from Pulmonary embolism Health Concerns: Pulmonary embolism Plan of Treatment: Take Eliquis 2 tabs (10 mg) twice daily for 6 more days (12 doses), then take take 1 tab (5 mg ) twice daily there after for a total of 6 months Use as oxygen and titrate to O2 sat of 92 or above and wean as tolerated Assessment: as above
[2022-02-20 14:22] LABS: COVID-19 Test Negative (Negative); IDNOW Serial# 16C4AD1C
== END 2022-02-20 15:07 | disposition skilled nursing facility (03) | DRG 175 ==
LOC: HO.ED 21:43 → HO.EDOVER 23:53 → HO.IMC 02-17 19:39
PROVIDERS: Nurse Practitioner Family; Physician Assistant; Admitting Provider Internal Medicine; Emergency Provider Emergency Medicine Emergency Medical Services; PCP Internal Medicine; Visit Provider Internal Medicine
DX: I26.94 Multiple subsegmental thrombotic pulmonary emboli without acute cor pulmonale (principal); J96.01 Acute respiratory failure with hypoxia; K86.1 Other chronic pancreatitis; E03.9 Hypothyroidism, unspecified; E11.9 Type 2 diabetes mellitus without complications; J45.30 Mild persistent asthma, uncomplicated; Z88.2 Allergy status to sulfonamides; Z88.0 Allergy status to penicillin; Z88.5 Allergy status to narcotic agent; Z88.7 Allergy status to serum and vaccine; Z79.51 Long term (current) use of inhaled steroids; Z79.890 Hormone replacement therapy; Z79.899 Other long term (current) drug therapy
CPT/HCPCS: 36415; 71275; 74177; 80048; 80053; 82947; 83605; 83690; 83880; 84484; 85025; 85027; 85610; 85730; 87040; 87205; 87635; 93005; 93306; 94640; 96365; 96367; 96372; 96375; 99285; J1650; J2270; J2930; J3370; J3475; Q9957; Q9967

== ENCOUNTER → 2022-02-27 13:02 | Outpatient (BNVA) | payer MEDICARE, OTHER, SELFPAY | PROVIDERS: Visit Provider Internal Medicine Gastroenterology | DX: K44.9 Diaphragmatic hernia without obstruction or gangrene (principal); R13.10 Dysphagia, unspecified; K21.9 Gastro-esophageal reflux disease without esophagitis; K22.10 Ulcer of esophagus without bleeding; J96.01 Acute respiratory failure with hypoxia; G92.9 Unspecified toxic encephalopathy; Z79.899 Other long term (current) drug therapy | CPT/HCPCS: 99212 ==

== ENCOUNTER → 2022-03-06 15:09 | Outpatient (BNVA) | payer MEDICARE, OTHER, SELFPAY | PROVIDERS: PCP Internal Medicine; Visit Provider Surgery | DX: K80.50 Calculus of bile duct without cholangitis or cholecystitis without obstruction (principal) | CPT/HCPCS: 99212 ==

== ENCOUNTER 2022-04-11 14:37 | Outpatient (REF) | payer MEDICARE, SELFPAY ==
[2022-04-11 16:12] LABS: CDiff Gene PCR NEGATIVE (Negative)
== END 2022-04-11 14:38 | disposition home or self-care (01) ==
LOC: HO.MMNH2L 14:37
PROVIDERS: Visit Provider Family Medicine
DX: R19.7 Diarrhea, unspecified (principal)
CPT/HCPCS: 36415; 87493

== ENCOUNTER 2022-04-14 07:24 | Outpatient (REF) | payer MEDICARE, SELFPAY ==
[2022-04-14 07:04] LABS: MANUAL DIFF FLAG NO
[2022-04-14 08:12] LABS: Basophils Percent Auto 0.4 % (0-2); Eosinophils Absolute Auto 0.1 X10*3/uL (0.0-0.4); Eosinophils Percent Auto 1.2 % (0-4); Hematocrit 34.4 % (37.0-47.0); Hemoglobin 10.5 g/dl (12.0-16.0); Imm Gran Abs Auto 0.07 X10*3/uL (0.00-0.03); Imm Gran Pct Auto 0.7 % (0.0-0.4); Lymphocytes Absolute Auto 0.8 X10*3/uL (1.2-4.9); Lymphocytes Percent Auto 7.6 % (20-40); Mean Corpuscular HGB Conc 30.5 g/dl (31.0-35.0); Mean Corpuscular Hemoglobin 25.5 pg (27.0-33.0); Mean Corpuscular Volume 83.5 fL (80.0-98.0); Monocytes Absolute Auto 0.8 X10*3/uL (0.1-1.2); Monocytes Percent Auto 8.1 % (2-11); Platelet Count 513 X10*3/uL (160-400); Red Blood Count 4.12 X10*6/uL (4.20-5.50); Red Cell Distribution Width 16.3 % (11.0-16.0); White Blood Count 9.8 X10*3/uL (4.8-10.8)
[2022-04-14 08:19] LABS: Anion Gap 19 (12-20); Blood Urea Nitrogen 13 mg/dL (9-16); Calcium 7.8 mg/dL (8.4-10.2); Carbon Dioxide 23 mmol/L (22-29); Chloride 102 mmol/L (96-108); Estimated Glomerular Filt Rate > 60; Glucose Random 87 mg/dL (60-115); Potassium 3.8 mmol/L (3.3-5.1); Sodium 140 mmol/L (135-145)
== END 2022-04-14 07:25 | disposition home or self-care (01) ==
LOC: HO.MMNH2L 07:24
PROVIDERS: Visit Provider Family Medicine
DX: J45.909 Unspecified asthma, uncomplicated (principal); K21.9 Gastro-esophageal reflux disease without esophagitis; E11.9 Type 2 diabetes mellitus without complications
CPT/HCPCS: 36415; 80048; 85025

== ENCOUNTER 2022-04-21 07:51 | Outpatient (REF) | payer SELFPAY ==
[2022-04-21 07:02] LABS: MANUAL DIFF FLAG NO
[2022-04-21 07:51] LABS: Basophils Percent Auto 0.7 % (0-2); Eosinophils Absolute Auto 0.1 X10*3/uL (0.0-0.4); Eosinophils Percent Auto 1.5 % (0-4); Hemoglobin 9.9 g/dl (12.0-16.0); Imm Gran Abs Auto 0.03 X10*3/uL (0.00-0.03); Imm Gran Pct Auto 0.5 % (0.0-0.4); Lymphocytes Absolute Auto 0.8 X10*3/uL (1.2-4.9); Lymphocytes Percent Auto 13.4 % (20-40); Mean Corpuscular HGB Conc 30.9 g/dl (31.0-35.0); Mean Corpuscular Volume 80.8 fL (80.0-98.0); Mean Platelet Volume 10.1 fL (9.4-12.3); Monocytes Absolute Auto 0.8 X10*3/uL (0.1-1.2); Monocytes Percent Auto 12.3 % (2-11); Neutrophils Absolute Auto 4.4 x10*3/uL (2.0-8.3); Neutrophils Percent Auto 71.6 % (45-73); Platelet Count 448 X10*3/uL (160-400); Red Blood Count 3.96 X10*6/uL (4.20-5.50); Red Cell Distribution Width 16.6 % (11.0-16.0); White Blood Count 6.1 X10*3/uL (4.8-10.8)
[2022-04-21 08:19] LABS: Anion Gap 14 (12-20); Blood Urea Nitrogen 16 mg/dL (9-16); Calcium 7.8 mg/dL (8.4-10.2); Carbon Dioxide 27 mmol/L (22-29); Chloride 100 mmol/L (96-108); Estimated Glomerular Filt Rate > 60; Glucose Random 94 mg/dL (60-115); Potassium 2.9 mmol/L (3.3-5.1); Sodium 138 mmol/L (135-145)
[2022-04-21 11:41] LABS: Alanine Aminotransferase 7 U/L (0-31); Albumin Level 2.3 g/dL (3.5-5.0); Alkaline Phosphatase 141 U/L (39-117); Aspartate Amino Transferase 10 U/L (5-31); Bilirubin Total 0.2 mg/dL (0.0-1.0); Total Protein 4.6 g/dL (6.5-8.0)
== END 2022-04-21 07:52 | disposition home or self-care (01) ==
LOC: HO.MMNH2L 07:51
PROVIDERS: Visit Provider Family Medicine
DX: J45.909 Unspecified asthma, uncomplicated (principal); K21.9 Gastro-esophageal reflux disease without esophagitis; E11.9 Type 2 diabetes mellitus without complications; R11.0 Nausea
CPT/HCPCS: 36415; 80048; 80053; 85025

== ENCOUNTER → 2022-04-21 09:07 | Outpatient (BNVA) | payer MEDICARE, OTHER, SELFPAY | PROVIDERS: PCP Internal Medicine; Visit Provider Surgery | DX: K80.50 Calculus of bile duct without cholangitis or cholecystitis without obstruction (principal); Z87.19 Personal history of other diseases of the digestive system | CPT/HCPCS: 99212 ==

== ENCOUNTER 2022-05-15 11:56 | Emergency (ER) | payer MEDICARE, OTHER, SELFPAY ==
--- NOTE | 2022-05-15 | ECG_ITS ---
Test Reason : AMS Blood Pressure : / mmHG Vent. Rate : 122 BPM Atrial Rate : 122 BPM P-R Int : 128 ms QRS Dur : 080 ms QT Int : 298 ms P-R-T Axes : 057 060 170 degrees QTc Int : 424 ms Sinus tachycardia Nonspecific ST and T wave abnormality Abnormal ECG When compared with ECG of 17-FEB-2022 01:17, Premature ventricular complexes are no longer Present Nonspecific T wave abnormality, worse in Inferior leads Nonspecific T wave abnormality now evident in Anterolateral leads Referred By: Generic ED Physician Electronically Signed By:SHELDON AREVALO
--- NOTE | ~2022-05-15 | US_ITS ---
EXAMINATION: US ABDOMEN LIMITED CLINICAL INFORMATION: Right upper quadrant. COMPARISON: 02/16/2022 TECHNIQUE: Real-time imaging of the right upper quadrant abdominal viscera. FINDINGS: PANCREAS: Obscured by overlying bowel gas. LIVER: Normal. The liver is normal in size. The liver contour is normal. Parenchymal echogenicity is normal. No focal hepatic lesion. There is no intrahepatic biliary duct dilatation seen. GALLBLADDER: The gallbladder is physiologically distended. Multiple mobile gallstones are present. No evidence of gallbladder wall thickening or pericholecystic fluid. COMMON BILE DUCT: Normal in caliber measuring 0.3 cm in diameter. RIGHT KIDNEY: Normal. No hydronephrosis. No renal calculi or focal parenchymal lesions. The kidney measures 9.9 cm in maximum dimension. FREE FLUID: None. US/US abdomen limited IMPRESSION: Cholelithiasis. No sonographic findings of acute cholecystitis.
--- NOTE | ~2022-05-15 | XR_ITS ---
EXAMINATION: XR CHEST CLINICAL INFORMATION: Cough shortness of breath COMPARISON: Chest radiograph from 01/30/2022 TECHNIQUE: Frontal view of the chest was obtained. FINDINGS: Bilateral low lung volumes. Slight accentuation of the pulmonary vasculature. Bibasilar atelectasis versus scarring, left greater than right. Pneumothorax. Trachea is midline. Cardiomediastinal silhouette is not enlarged. No large pleural effusion. Osseous structures are intact. Soft tissues are unremarkable. XR/XR chest 1V IMPRESSION: 1. Bilateral low lung volumes. 2. Slight accentuation of the pulmonary vasculature. 3. Bibasilar atelectasis versus scarring, left greater than right.
[2022-05-15 12:11] VITALS: BP 109/58; BP 116/68; PULSE 122; PULSE 63; RESP 22; TEMP 36.8; O2SAT 94; O2SAT 96; BMI 29.2
[2022-05-15 13:07] LABS: Basophils Percent Auto 0.2 % (0-2); Eosinophils Percent Auto 0.2 % (0-4); Hematocrit 39.9 % (37.0-47.0); Hemoglobin 12.3 g/dl (12.0-16.0); Imm Gran Abs Auto 0.11 X10*3/uL (0.00-0.03); Imm Gran Pct Auto 0.7 % (0.0-0.4); Lymphocytes Absolute Auto 0.4 X10*3/uL (1.2-4.9); Lymphocytes Percent Auto 2.2 % (20-40); MANUAL DIFF FLAG SCAN; Mean Corpuscular HGB Conc 30.8 g/dl (31.0-35.0); Mean Corpuscular Hemoglobin 24.7 pg (27.0-33.0); Mean Corpuscular Volume 80.1 fL (80.0-98.0); Mean Platelet Volume 10.7 fL (9.4-12.3); Monocytes Absolute Auto 0.8 X10*3/uL (0.1-1.2); Monocytes Percent Auto 4.9 % (2-11); Neutrophils Absolute Auto 14.8 x10*3/uL (2.0-8.3); Neutrophils Percent Auto 91.8 % (45-73); Platelet Count 319 X10*3/uL (160-400); Red Blood Count 4.98 X10*6/uL (4.20-5.50); SCAN SMEAR FLAG 1; White Blood Count 16.1 X10*3/uL (4.8-10.8)
[2022-05-15 13:32] LABS: SLIDE REVIEW VERIFIED
[2022-05-15] MEDS: Haloperidol Lactate 5 MG/ML VIAL 2 MG IVPUSH (13:50)
--- NOTE | 2022-05-15 13:58 | PC.NURSE ---
Attempt to straight cath patient with Corina Veronica PCT at bedside, minimal urine bladder scanned patient minimal urine in bladder MD aware provide IVF and will revisit straight cath son at bedside will CTM
[2022-05-15 14:04] LABS: INTERNATIONAL NORM RATIO 1.1 (0.9-1.1); Prothrombin Time 12.3 SEC (10.0-13.1)
[2022-05-15 14:07] LABS: Partial Thromboplastin Time 25.5 SEC (26.0-36.4)
[2022-05-15 14:08] LABS: Lactic Acid 1.8 mmol/L (0.5-2.0)
[2022-05-15 14:13] LABS: Alanine Aminotransferase 52 U/L (0-31); Albumin Level 2.7 g/dL (3.5-5.0); Alkaline Phosphatase 484 U/L (39-117); Aspartate Amino Transferase 74 U/L (5-31); Bilirubin Direct 0.4 mg/dL (0.0-0.5); Bilirubin Total 0.7 mg/dL (0.0-1.0); Lipase 26 U/L (8-78); Total Protein 5.2 g/dL (6.5-8.0)
[2022-05-15 14:20] LABS: B Type Natriuretic Peptide 44 pg/mL (<100)
[2022-05-15 14:21] VITALS: BP 112/64; PULSE 112; RESP 30; TEMP 36.9; O2SAT 95
[2022-05-15 14:21] LABS: Troponin-I High Sensitivity 10.4 ng/L (<3.5-17.0)
[2022-05-15 14:36] LABS: Influenza A PCR NEGATIVE (Negative); Influenza B PCR NEGATIVE (Negative); Resp Syncy Virus RNA Qual PCR NEGATIVE (Negative); SARS COV2 PCR INHOUSE NEGATIVE (Negative)
[2022-05-15] MEDS: 0.9 % Sodium Chloride 1,000 ML 999 ML IV (14:46)
[2022-05-15 15:26] LABS: Appearance Urine Cloudy; Color Urine Dark Yellow; Glucose Urine UA Negative (Negative); Leukocyte Esterase Urine Small (1+) (Negative); Nitrite Urine Negative (Negative); Specific Gravity - Urine 1.025 (1.005-1.025); UMIC TRIGGER UACC YES; Urine Blood Moderate (2+) (Negative); Urine Ketones Trace mg/dL (Negative); Urine Protein 100 (2+) mg/dL (Neg-Trace)
--- NOTE | 2022-05-15 15:29 | PC.NURSE ---
Spoke with chemistry lab awaing BMP, Lab to use giovanna on hand aware will BORISM.
[2022-05-15 15:33] LABS: Anion Gap 16 (12-20); Blood Urea Nitrogen 20 mg/dL (9-16); Calcium 8.5 mg/dL (8.4-10.2); Carbon Dioxide 33 mmol/L (22-29); Chloride 94 mmol/L (96-108); Creatinine Clr Calc Pharmacy 72.9; Estimated Glomerular Filt Rate > 60; Glucose Random 182 mg/dL (60-115); Potassium 3.1 mmol/L (3.3-5.1); Sodium 140 mmol/L (135-145)
[2022-05-15 16:11] VITALS: BP 117/60; PULSE 56; RESP 22; O2SAT 97
[2022-05-15 16:18] LABS: Bacteria Urine None Seen (None Seen); RBC Urine >20 /HPF (0-2); UACC Culture Trigger YES
--- NOTE | 2022-05-15 16:38 | PC.NURSE ---
Patient sleeping easily aroused no distress noted tolerating O2 by nasal cannula with good effect was straight cathed earlier for urine matthew Veroniac PCT approx 1450 will CTM
--- NOTE | 2022-05-15 16:55 | ED_ITS ---
HPI - Altered Mental Status General Chief Complaint: Altered Mental Status Stated Complaint: AMS,COUGH Time Seen by Provider: 05/15/22 12:32 Source: family (Son, Mateo) Mode of arrival: EMS Limitations: altered mental status History of Present Illness HPI narrative: 76-year-old female who was sent to the emergency department from her care home facility for increased confusion. According to nursing notes the patient was recently diagnosed with pneumonia. The patient's son is here in the emergency department any told me that the patient was diagnosed with COVID before and the since then she has had a productive sounding cough. He states that the patient is currently residing at [facility]. There was no other information available about patient's altered mental status. Related Data Home Medications Medication Instructions Recorded Confirmed levothyroxine 75 mcg tablet 1 tab PO DAILY@0630 01/15/22 04/21/22 mirabegron 25 mg tablet,extended 1 tab PO DAILY 01/15/22 04/21/22 release 24 hr (Myrbetriq) omeprazole 20 mg capsule,delayed 1 cap PO BID@0630,1630 01/15/22 04/21/22 release acetaminophen 500 mg tablet 1,000 mg PO TID 02/17/22 04/21/22 bisacodyl 10 mg rectal suppository 10 mg AK DAILY PRN Constipation 02/17/22 04/21/22 (Dulcolax (bisacodyl)) dextrose 40 % oral gel (Glucose 10 g PO Q15M PRN BG <60 AND 02/17/22 04/21/22 Gel) CONSCIOUS erythromycin 250 mg tablet 250 mg PO BID 02/17/22 04/21/22 fluticasone 250 mcg-salmeterol 50 1 inh inhalation BID 02/17/22 04/21/22 mcg/dose blistr powdr for inhalation (Advair Diskus) glucagon HCl 1 mg solution for 1 mg subcut Q20M PRN BG < 60 02/17/22 04/21/22 injection (Glucagon (HCl) Emergency Kit) ipratropium 20 mcg-albuterol 100 2 puff inhalation Q6H PRN 02/17/22 04/21/22 mcg/actuation mist for inhalation Shortness Of Breath (Combivent Respimat) magnesium hydroxide 400 mg/5 mL 30 ml PO DAILY PRN Constipation 02/17/22 04/21/22 oral suspension (Milk of Magnesia) mirtazapine 7.5 mg tablet 7.5 mg PO BEDTIME 02/17/22 04/21/22 ondansetron HCl 4 mg tablet 4 mg PO DAILY 02/17/22 04/21/22 ondansetron HCl 4 mg tablet 4 mg PO Q8H PRN Nausea 02/17/22 04/21/22 sertraline 50 mg tablet 50 mg PO DAILY 02/17/22 04/21/22 sodium phosphates 19 gram-7 118 ml AK BEDTIME PRN Constipation 02/17/22 04/21/22 gram/118 mL enema (Fleet Enema) Previous Rx's Medication Instructions Recorded metformin 500 mg tablet 500 mg PO BID #60 tabs 02/03/22 apixaban 5 mg (74 tabs) tablets in 5 mg PO BID #72 ea 02/20/22 a dose pack [id number] 1 cap PO TID 30 days #90 caps 02/27/22 12,000-38,000-60,000 unit capsule,delayed rel (Creon) flash glucose sensor (FreeStyle #1 ea 03/27/22 Summer 3 Sensor kit) Allergies Allergy/AdvReac Type Severity Reaction Status Date / Time influenza virus vaccine, Allergy Severe SEVERE FLU Verified 04/21/22 09:20 specific SYMPTOMS [Influenza Virus Vacc,Specific] Sulfa (Sulfonamide Allergy Intermediate Hives Verified 04/21/22 09:20 Antibiotics) amoxicillin [Amoxicillin] Allergy Unknown UNKNOWN Verified 04/21/22 09:20 Penicillins Allergy Unknown UNKNOWN Verified 04/21/22 09:20 codeine [CODEINE] AdvReac Intermediate NAUSEA & Verified 04/21/22 09:20 VOMITING Review of Systems Review of Systems: Yes Unobtainable due to mental status PMFSH Past Medical History Medical History Acute respiratory failure with hypoxia Biliary colic Colitis Colon cancer screening Depression with anxiety Dysphagia Erosive esophagitis GERD (gastroesophageal reflux disease) Hiatal hernia History of gallbladder disease Hospital discharge follow-up Hypothyroidism Ileus Left shoulder pain Mild cognitive impairment Mild persistent asthma Mild persistent asthma with (acute) exacerbation Mild recurrent major depression Morbid obesity Obesity (BMI 30-39.9) GILDA (obstructive sleep apnea) Pure hypercholesterolemia Respiratory distress Toxic encephalopathy Surgical History H/O colonoscopy History of benign ovarian tumor History of esophagogastroduodenoscopy (EGD) Family History Family History Mother Diabetes Hypertension Stroke Father Lung cancer Social History Social History Household Members: Children Household Members Other:: daughter lives downstairs Housing: House Are you a primary gericare aide to a significant other at home: No Do you presently have visiting nurse or other home services: Yes (PT) Alcohol intake: unknown Patient Tobacco Use Status: Never used Tobacco Smoked in Last 30 Days: No e-Cigarette/Vaping Use: Never Used Second Hand Smoke Exposure: Yes Advance Directives: Yes Advance Directives on File: Yes Advance Directives Date on File: 04/03/20 service: No Current occupational status: retired Current occupation: right handed Cognitive needs: Yes Hearing needs: No Vision needs: No Physical Exam ED Vital Signs: Vital Signs - 24 hr 05/15/22 12:11 05/15/22 14:21 05/15/22 16:11 Temperature 98.2 F 98.4 F Pulse Rate 122 H 112 H 56 Respiratory Rate 22 H 30 H 22 H Blood Pressure 109/58 L 112/64 117/60 Pulse Oximetry 96 95 97 Oxygen Delivery Method Nasal Cannula Nasal Cannula Nasal Cannula Oxygen Flow Rate 5 4 BMI result Body Mass Index 29.2 Const Other: Awake, alert, elderly woman, she appears to be agitated, she keeps asking for help cannot specify with trauma, the son states that this is part of her dementia [facility] Head: Yes normal to inspection, Yes normocephalic and Yes atraumatic Ears: external ears normal General nose exam: Normal external nose present Face and sinus: Yes normal facial exam Mouth: Normal oral and palatal mucosa present Throat: Yes posterior oropharynx normal Eyes General: appearance normal, both eyes and all related structures Neck Neck: Yes normal visual inspection, Yes no lymphadenopathy, Yes trachea midline and Yes supple Chest Chest palpation & inspection: normal inspection of the chest and normal palpation of entire chest wall Resp Effort & Inspection: normal respiratory effort and able to speak in complete sentences Auscultation: clear to auscultation bilaterally Cardio Rate: regular rate Rhythm: regular rhythm Heart sounds: S1 normal heart sound present, S2 normal heart sound present and no murmurs GI Inspection: Yes normal to inspection Palpation (GI): Soft to palpation, nontender and no guarding Auscultation: normal bowel sounds General: Yes no CVA tenderness Back/Spine/Pelvis Back: no CVA tenderness Skin General skin exam: no rashes or lesions noted Neuro Other: The patient is awake, alert, oriented to person, moves all extremities symmetrically Extrem General: Yes normal to inspection Medications Administered Generic Name Dose Route Start Last Admin Trade Name Freq PRN Reason Stop Dose Admin Levofloxacin 750 mg in 150 mls @ 100 mls/hr 05/15/22 17:09 05/15/22 17:23 Levaquin IV 05/15/22 18:38 100 mls/hr ONCE ONE Administration Discontinued Medications Generic Name Dose Route Start Last Admin Trade Name Freq PRN Reason Stop Dose Admin Haloperidol Lactate 2 mg 05/15/22 13:01 05/15/22 13:50 Haloperidol Lactate 5 Mg/Ml Vial IVPUSH 05/15/22 13:02 2 mg STAT STA Administration Sodium Chloride 1,000 mls @ 999 mls/hr 05/15/22 12:57 05/15/22 14:04 Ns IV 05/15/22 13:57 Not Given .Q1H1M STA Sodium Chloride 1,000 mls @ 999 mls/hr 05/15/22 13:45 05/15/22 14:46 Ns IV 05/15/22 14:45 Infused .Q1H1M STA Infusion Medical Decision Making Medical Decision Making MDM Narrative: 76-year-old female who was sent to the emergency department from her care home facility for change in mental status, there was a concerned that the pa paula had a recent pneumonia was diagnosed with COVID approximately 10-14 days prior to evaluation. Patient did have an elevated pulse of 122 and an elevated respiratory rate of 22 on presentation. I ordered a CBC, BMP, LFTs, PTT, PT/INR troponin, BNP, lactic acid, lipase, influenza, RSV and COVID testing. 1704: The patient was treated with normal saline IV x2 L with improvement of her vital signs patient also required sedation with Haldol 2 mg IV in order to complete the workup. My independent interpretation of the patient's laboratory evaluation as follows: Elevated WBC 43209, low potassium 3.1, elevated CO2 33, elevated glucose 182. Elevated AST and ALT of 74 and 52 with an elevated alk-phos of 484-she has had similar elevation is in the past. In reviewing the ED record from 01/14/2022. Patient was seen by surgery and I did review the surgical office record from 04/21/2022 the patient had a ERCP for choledocholithiasis a plan was just to continue to follow her progress hold off cholecystectomy. Given her elevation in her WBC, alk-phos, AST and ALT, I ordered a right up per quadrant ultrasound, patient will be given Levaquin 750 mg IV and Flagyl 500 mg IV. I will sign the patient out to my colleague, Dr. Charlette Dos Santos. Differential Diagnosis Differential Diagnoses: The differential diagnosis associated with the presentation includes 17 17: Differential diagnosis includes was not limited to pneumonia, toxic metabolic syndrome, dementia, acute cholecystitis, choledocholithiasis, dehydration, dementia Lab Data Result Diagrams: 05/15/22 12:49 05/15/22 13:20 Labs: Lab Results 05/15/22 05/15/22 05/15/22 Range/Units 12:49 13:20 13:20 WBC 16.1 H (4.8-10.8) X10*3/uL RBC 4.98 (4.20-5.50) X10*6/uL Hgb 12.3 (12.0-16.0) g/dl Hct 39.9 (37.0-47.0) % MCV 80.1 (80.0-98.0) fL MCH 24.7 L (27.0-33.0) pg MCHC 30.8 L (31.0-35.0) g/dl RDW 20.0 H (11.0-16.0) % Plt Count 319 (160-400) X10*3/uL MPV 10.7 (9.4-12.3) fL Immature Gran % (Auto) 0.7 H (0.0-0.4) % Neut % (Auto) 91.8 H (45-73) % Lymph % (Auto) 2.2 L (20-40) % [place] % (Auto) 4.9 (2-11) % Eos % (Auto) 0.2 (0-4) % Baso % (Auto) 0.2 (0-2) % Lymph # (Auto) 0.4 L (1.2-4.9) X10*3/uL [place] # (Auto) 0.8 (0.1-1.2) X10*3/uL Eos # (Auto) 0.0 (0.0-0.4) X10*3/uL Baso # (Auto) 0.0 (0.0-0.2) X10*3/uL Abs Immat Gran (auto) 0.11 H (0.00-0.03) X10*3/uL Absolute Neuts (auto) 14.8 H (2.0-8.3) x10*3/uL Absolute Nucleated RBC 0.000 (0.0-0.012) X10*3/uL Nucleated RBC % (auto) 0.0 (0.0-0.2) /100WBC Smear Tech's Comments VERIFIED PT 12.3 (10.0-13.1) SEC INR 1.1 (0.9-1.1) APTT 25.5 L (26.0-36.4) SEC Sodium Cancelled Potassium Cancelled Chloride Cancelled Carbon Dioxide Cancelled Anion Gap Cancelled BUN Cancelled Creatinine Cancelled Estim Creat Clear Calc Cancelled Estimated GFR Cancelled Random Glucose Cancelled Lactic Acid (0.5-2.0) mmol/L Calcium Cancelled Total Bilirubin (0.0-1.0) mg/dL Direct Bilirubin (0.0-0.5) mg/dL AST (5-31) U/L ALT (0-31) U/L Alkaline Phosphatase (39-117) U/L Troponin I High Sens (<3.5-17.0) ng/L B-Natriuretic Peptide (<100) pg/mL Total Protein (6.5-8.0) g/dL Albumin (3.5-5.0) g/dL Lipase (8-78) U/L Urine Color Urine Appearance Urine pH (5.0-9.0) Ur Specific [place] (1.005-1.025) Urine Protein (Neg-Trace) mg/dL Urine Glucose (UA) (Negative) mg/dL Urine Ketones (Negative) mg/dL Urine Blood (Negative) Urine Nitrite (Negative) Ur Leukocyte Esterase (Negative) Urine RBC (0-2) /HPF Urine WBC (0-5) /HPF Ur Squamous Epith Cells (0-2) /HPF Urine Bacteria (None Seen) Hyaline Casts (0-2) /LPF Influenza Type A (PCR) (Negative) Influenza Type B (PCR) (Negative) RSV RNA Qual (PCR) (Negative) SARS-CoV-2 RNA (RT-PCR) (Negative) 05/15/22 05/15/22 05/15/22 Range/Units 13:20 13:20 13:20 WBC (4.8-10.8) X10*3/uL RBC (4.20-5.50) X10*6/uL Hgb (12.0-16.0) g/dl Hct (37.0-47.0) % MCV (80.0-98.0) fL MCH (27.0-33.0) pg MCHC (31.0-35.0) g/dl RDW (11.0-16.0) % Plt Count (160-400) X10*3/uL MPV (9.4-12.3) fL Immature Gran % (Auto) (0.0-0.4) % Neut % (Auto) (45-73) % Lymph % (Auto) (20-40) % [place] % (Auto) (2-11) % Eos % (Auto) (0-4) % Baso % (Auto) (0-2) % Lymph # (Auto) (1.2-4.9) X10*3/uL [place] # (Auto) (0.1-1.2) X10*3/uL Eos # (Auto) (0.0-0.4) X10*3/uL Baso # (Auto) (0.0-0.2) X10*3/uL Abs Immat Gran (auto) (0.00-0.03) X10*3/uL Absolute Neuts (auto) (2.0-8.3) x10*3/uL Absolute Nucleated RBC (0.0-0.012) X10*3/uL Nucleated RBC % (auto) (0.0-0.2) /100WBC Smear Tech's Comments PT (10.0-13.1) SEC INR (0.9-1.1) APTT (26.0-36.4) SEC Sodium Potassium Chloride Carbon Dioxide Anion Gap BUN Creatinine Estim Creat Clear Calc Estimated GFR Random Glucose Lactic Acid 1.8 (0.5-2.0) mmol/L Calcium Total Bilirubin (0.0-1.0) mg/dL Direct Bilirubin (0.0-0.5) mg/dL AST (5-31) U/L ALT (0-31) U/L Alkaline Phosphatase (39-117) U/L Troponin I High Sens 10.4 D (<3.5-17.0) ng/L B-Natriuretic Peptide 44 (<100) pg/mL Total Protein (6.5-8.0) g/dL Albumin (3.5-5.0) g/dL Lipase (8-78) U/L Urine Color Urine Appearance Urine pH (5.0-9.0) Ur Specific [place] (1.005-1.025) Urine Protein (Neg-Trace) mg/dL Urine Glucose (UA) (Negative) mg/dL Urine Ketones (Negative) mg/dL Urine Blood (Negative) Urine Nitrite (Negative) Ur Leukocyte Esterase (Negative) Urine RBC (0-2) /HPF Urine WBC (0-5) /HPF Ur Squamous Epith Cells (0-2) /HPF Urine Bacteria (None Seen) Hyaline Casts (0-2) /LPF Influenza Type A (PCR) (Negative) Influenza Type B (PCR) (Negative) RSV RNA Qual (PCR) (Negative) SARS-CoV-2 RNA (RT-PCR) (Negative) 05/15/22 05/15/22 05/15/22 Range/Units 13:20 13:20 15:04 WBC (4.8-10.8) X10*3/uL RBC (4.20-5.50) X10*6/uL Hgb (12.0-16.0) g/dl Hct (37.0-47.0) % MCV (80.0-98.0) fL MCH (27.0-33.0) pg MCHC (31.0-35.0) g/dl RDW (11.0-16.0) % Plt Count (160-400) X10*3/uL MPV (9.4-12.3) fL Immature Gran % (Auto) (0.0-0.4) % Neut % (Auto) (45-73) % Lymph % (Auto) (20-40) % [place] % (Auto) (2-11) % Eos % (Auto) (0-4) % Baso % (Auto) (0-2) % Lymph # (Auto) (1.2-4.9) X10*3/uL [place] # (Auto) (0.1-1.2) X10*3/uL Eos # (Auto) (0.0-0.4) X10*3/uL Baso # (Auto) (0.0-0.2) X10*3/uL Abs Immat Gran (auto) (0.00-0.03) X10*3/uL Absolute Neuts (auto) (2.0-8.3) x10*3/uL Absolute Nucleated RBC (0.0-0.012) X10*3/uL Nucleated RBC % (auto) (0.0-0.2) /100WBC Smear Tech's Comments PT (10.0-13.1) SEC INR (0.9-1.1) APTT (26.0-36.4) SEC Sodium 140 Potassium 3.1 L Chloride 94 L Carbon Dioxide 33 H Anion Gap 16 BUN 20 H Creatinine 0.68 Estim Creat Clear Calc 72.9 Estimated GFR > 60 Random Glucose 182 H Lactic Acid (0.5-2.0) mmol/L Calcium 8.5 D Total Bilirubin 0.7 (0.0-1.0) mg/dL Direct Bilirubin 0.4 (0.0-0.5) mg/dL AST 74 H (5-31) U/L ALT 52 H (0-31) U/L Alkaline Phosphatase 484 H D (39-117) U/L Troponin I High Sens (<3.5-17.0) ng/L B-Natriuretic Peptide (<100) pg/mL Total Protein 5.2 L (6.5-8.0) g/dL Albumin 2.7 L (3.5-5.0) g/dL Lipase 26 (8-78) U/L Urine Color Dark Yellow Urine Appearance Cloudy Urine pH 6.0 (5.0-9.0) Ur Specific [place] 1.025 (1.005-1.025) Urine Protein 100 (2+) H (Neg-Trace) mg/dL Urine Glucose (UA) Negative (Negative) mg/dL Urine Ketones Trace (Negative) mg/dL Urine Blood Moderate (2+) H (Negative) Urine Nitrite Negative (Negative) Ur Leukocyte Esterase Small (1+) H (Negative) Urine RBC >20 H (0-2) /HPF Urine WBC 6-10 H (0-5) /HPF Ur Squamous Epith Cells 3-5 (0-2) /HPF Urine Bacteria None Seen (None Seen) Hyaline Casts 6-10 (0-2) /LPF Influenza Type A (PCR) NEGATIVE (Negative) Influenza Type B (PCR) NEGATIVE (Negative) RSV RNA Qual (PCR) NEGATIVE (Negative) SARS-CoV-2 RNA (RT-PCR) NEGATIVE (Negative) Independent Interpretation I performed an independent interpretation of an: EKG Interpretation: My independent interpretation of the patient's 12 EKG done at 12:29: Sinus tachycardia with a rate of 122, normal AK, QRS and QTC intervals, no ST segment elevation, no ST segment depression, nonspecific T-wave abnormalities. Radiology Impression Discussion of test interpretation with radiology: I have reviewed the radiologist's reading. Radiologist Impression: Chest x-ray, frontal view: IMPRESSION: 1.? Bilateral low lung volumes. 2.? Slight accentuation of the pulmonary vasculature. 3.? Bibasilar atelectasis versus scarring, left greater than right. ?Dictated By:Gabbie Sol MD Signed By:<Electronically signed by Gabbie Sol MD in 05/15/22 1522 Critical Care Time Critical Care Time Critical Care Time: Yes Total Critical Care Time: 30 Attestation: Critical Care: The patient was critically ill with a high probability of imminent or life threatening deterioration. I spent greater than 30 minutes of discontinuous time evaluating the patient,delivering critical care at the bedside, discussing and evaluating pertinent data with consultants. Critical care time does not include time spent performing separately billable procedures or teaching. Total time spent performing critical care was 30 minutes. Discharge Plan Discharge Clinical Impression: Acute alteration in mental status, LFT elevation, Leukocytosis, Acute dehydration Patient Disposition: Still a Patient Prescriptions: No Action levothyroxine 75 mcg tablet 1 tab PO DAILY@0630 omeprazole 20 mg capsule,delayed release(DR/EC) 1 cap PO BID@0630,1630 Myrbetriq 25 mg tablet extended release 24 hr 1 tab PO DAILY metformin 500 mg tablet 500 mg PO BID Qty: 60 0RF fluticasone propion-salmeterol [Advair Diskus] 250-50 mcg/dose Blister With Device 1 inh INHALATION BID ondansetron HCl 4 mg Tablet 4 mg PO Q8H PRN (Reason: Nausea) ondansetron HCl 4 mg Tablet 4 mg PO DAILY acetaminophen 500 mg Tablet 1,000 mg PO TID erythromycin 250 mg Tablet 250 mg PO BID magnesium hydroxide [Milk of Magnesia] 400 mg/5 mL Suspension 30 ml PO DAILY PRN (Reason: Constipation) bisacodyl [Dulcolax (bisacodyl)] 10 mg Suppository 10 mg AK DAILY PRN (Reason: Constipation) sertraline 50 mg Tablet 50 mg PO DAILY mirtazapine 7.5 mg Tablet 7.5 mg PO BEDTIME Combivent Respimat 20-100 mcg/actuation Mist 2 puff INHALATION Q6H PRN (Reason: Shortness Of Breath) dextrose [Glucose Gel] 40 % Gel 10 g PO Q15M PRN (Reason: BG <60 AND CONSCIOUS) Rx Instructions: until symptoms of low blood sugar are controlled Fleet Enema 19-7 gram/118 mL Enema 118 ml AK BEDTIME PRN (Reason: Constipation) Glucagon (HCl) Emergency Kit 1 mg Recon Soln 1 mg SUBCUT Q20M PRN (Reason: BG < 60) Rx Instructions: until target blood sugar attained apixaban 5 mg (74 tabs) tablets,dose pack 5 mg PO BID Qty: 72 0RF Rx Instructions: take 2 tabs (10 mg) bid x 6 days (12 more doses), then 1 tab (5mg) twice daily for 6 months. (DME) FreeStyle Summer 3 Sensor Kit See Rx Instructions .Route Qty: 1 0RF Rx Instructions: As directed Creon 12,000-38,000 -60,000 unit capsule,delayed release(DR/EC) 1 cap PO TID 30 Days Qty: 90 3RF Rx Instructions: administer with meals and/or snacks
[2022-05-15] MEDS: levoFLOXacin/D5W 750 MG/150 ML PIGGYBACK 100 MG IV (17:23)
[2022-05-15 18:29] VITALS: BP 106/61; PULSE 106; RESP 16; TEMP 36.5; O2SAT 93
--- NOTE | 2022-05-15 19:35 | MHC.EDTECH ---
Call out to [facility] @[phone] regarding transport back to [facility] Del Carmen COLLINS of within the hour was given
[2022-05-15] MEDS: metroNIDAZOLE/NS 500 MG/100 ML PIGGYBACK 100 MG IV (19:48)
--- NOTE | 2022-05-15 20:32 | PC.NURSE ---
RN gave nurse to nurse report to Jerod and Luís Joyce r/t pt in route via ambulance. Jerod verbalized understanding of discharge instructions and plan of care.
== END 2022-05-15 20:35 | disposition home or self-care (01) ==
PROVIDERS: Emergency Medicine Emergency Medical Services; Emergency Provider Emergency Medicine; PCP Family Medicine
DX: R41.82 Altered mental status, unspecified (principal); R10.11 Right upper quadrant pain; R79.89 Other specified abnormal findings of blood chemistry; E86.0 Dehydration; R05.9 Cough, unspecified; D72.829 Elevated white blood cell count, unspecified; Z20.822 Contact with and (suspected) exposure to COVID-19; Z79.899 Other long term (current) drug therapy
CPT/HCPCS: 0241U; 36415; 71045; 76705; 80048; 80076; 81001; 83605; 83690; 83880; 84484; 85025; 85610; 85730; 87040; 87086; 87147; 87205; 93005; 96374; 96375; 99284; 99285; J1956

== ENCOUNTER 2022-05-19 09:27 | Outpatient (REF) | payer MEDICARE, OTHER, SELFPAY ==
--- NOTE | ~2022-05-19 | CT_ITS ---
EXAMINATION: CT ABDOMEN AND PELVIS WITHOUT AND WITH CONTRAST CLINICAL INFORMATION: Gastroesophageal reflux disease without esophagitis. COMPARISON: None. TECHNIQUE: Multidetector volumetric imaging was performed of the abdomen and pelvis before and after the IV administration of 85 mL of Omnipaque 300 intravenous contrast. Sagittal and coronal reformatted images were obtained on the technologist's workstation. This CT examination was performed using dose optimization techniques as appropriate, variously including the following: *Automated exposure control *Adjustment of mA and/or kV according to patient size (this includes techniques or standardized protocols for targeted exams where dose is matched to indication/reason for exam; i.e. extremities or head) *Use of iterative reconstruction technique DLP: 1321 mGy-cm. FINDINGS: LUNG BASES: The small left pleural effusion with underlying atelectasis. Minimal atelectatic changes or scarring is seen in the right lung base. LIVER, GALLBLADDER, AND BILIARY TREE: The liver is normal in size, shape, and attenuation. No focal hepatic lesion or biliary ductal dilatation is present. The gallbladder is unremarkable with no evidence of radiopaque gallstones, gallbladder wall thickening, or obvious pericholecystic inflammatory changes. PANCREAS: The pancreas is suboptimally visualized on this nonenhanced CT. Previously seen large amount of peripancreatic cystic collections have significantly decreased in size with punctate areas of gas collection throughout the collection noted previously. No fluid collection seen to suspect any recurrent pancreatitis. SPLEEN: Unremarkable. ADRENAL GLANDS: Unremarkable. KIDNEYS AND URETERS: The kidneys are normal in size, shape, and attenuation. No hydronephrosis, hydroureter, or calculi seen. No perinephric stranding. BLADDER: The bladder is nondistended. GASTROINTESTINAL TRACT: There is scattered stool, diverticula and gas seen in colon without distention. The small bowel loops are normal caliber. Appendix is not visualized ABDOMINAL WALL: A small umbilical hernia containing fat. LYMPH NODES: Normal. VASCULAR: Unremarkable. PELVIC VISCERA: There is no free air or free fluid. Again visualized cephalad to the uterus is a pocket of air collection, question diverticulum, appearing similar to previous study, best visualized on axial image 76/3 OSSEOUS STRUCTURES: There are degenerative disc changes with vacuum disc phenomena L2-L3 through L5-S1 disc levels. There is mild ventral spondylosis throughout the lumbar spine. Endplate sclerosis with subchondral cystic changes L3-L4 disc level. CT/CT abdomen pelvis wo/w IV con IMPRESSION: 1. Significant decrease in the peripancreatic cystic collections with multiple areas of punctate gas collection in the cystic collections. No new fluid collection seen to suspect any recurrent pancreatitis. No free fluid. 2. Colonic diverticulosis without diverticulitis. Mild constipation. 3. Small left pleural effusion with underlying atelectasis. Minimal atelectasis or scarring right lung base. 4. Small umbilical hernia containing fat. Fleischner guidelines were followed.
[2022-05-19] MEDS: iohexoL 350 MG/ML 100 ML INFUS..BTL IV (10:58)
== END 2022-05-19 09:28 | disposition home or self-care (01) ==
LOC: HO.CT 09:27
PROVIDERS: Visit Provider Nurse Practitioner Family
DX: K21.9 Gastro-esophageal reflux disease without esophagitis (principal); K86.1 Other chronic pancreatitis
CPT/HCPCS: 74178; Q9967

== ENCOUNTER 2022-05-28 13:57 | Inpatient (IN) | payer MEDICARE, OTHER, SELFPAY ==
--- NOTE | ~2022-05-28 | XR_ITS ---
EXAMINATION: XR CHEST CLINICAL INFORMATION: Chest pain COMPARISON: May 15, 2022 TECHNIQUE: AP portable view of the chest was obtained. FINDINGS: There are small lung volumes bilaterally with some linear densities at the lung bases consistent with mild atelectasis. No significant confluent parenchymal disease identified. No pneumothorax or pleural effusion. Heart normal size. No evidence of pulmonary edema. XR/XR chest 1V IMPRESSION: Small lung volumes.
--- NOTE | ~2022-05-28 | CT_ITS ---
EXAMINATION: CT ABDOMEN AND PELVIS WITH CONTRAST CLINICAL INFORMATION: Abdominal pain. COMPARISON: CT scan abdomen pelvis 05/19/2022 TECHNIQUE: Multidetector volumetric images were obtained from the superior aspect of the liver through the pubic symphysis following administration 85 mL of Omnipaque 350 intravenous contrast. Sagittal and coronal reformatted images were obtained on the technologist's workstation. Oral contrast: No This CT examination was performed using dose optimization techniques as appropriate, variously including the following: *Automated exposure control *Adjustment of mA and/or kV according to patient size (this includes techniques or standardized protocols for targeted exams where dose is matched to indication/reason for exam; i.e. extremities or head) *Use of iterative reconstruction technique DLP: 906 mGy-cm FINDINGS: LUNG BASES: The visualized lung bases are unremarkable. LIVER, GALLBLADDER, AND BILIARY TREE: The liver is normal in size, shape, and attenuation. No focal hepatic lesion or biliary ductal dilatation is present. The gallbladder is unremarkable with no evidence of radiopaque gallstones, gallbladder wall thickening, or obvious pericholecystic inflammatory changes. PANCREAS: The volume of the complex collection with air and fluid anterior to the pancreas at the mid mesentery has diminished in volume since prior CAT scan of 05/19/2022 but remains present. The air within this fluid collection raises question of infection. The pancreas parenchyma remains difficult to define similar prior CAT scan. SPLEEN: Unremarkable. ADRENAL GLANDS: Unremarkable. KIDNEYS AND URETERS: The kidneys are normal in size, shape, and attenuation. No hydronephrosis, hydroureter, or calculi seen. No perinephric stranding. BLADDER: Unremarkable. GASTROINTESTINAL TRACT: Gas-filled the large and small bowel loops but there is no transition point to suggest an obstruction. Bowel pattern suggests ileus. There is no bowel wall thickening /edema. There is a small volume of stool in the colon. The appendix is nonvisualized . The stomach is normal. There is no hiatal hernia. MESENTERY: In addition to the complex collection in the midabdomen left upper quadrant around the pancreas there is free fluid around the liver and in the cul-de-sac in the pelvis. This has density measurement of 10 Hounsfield units, simple fluid. ABDOMINAL WALL: No significant hernia is appreciated. LYMPH NODES: Normal. VASCULAR: Portal vein has normal enhancement at the divya hepatis. The splenic vein and superior mesenteric vein are not well opacified on this exam. There is normal enhancement of the SMA, celiac axis including the hepatic artery and splenic artery. PELVIC VISCERA: Uterus is anteverted. OSSEOUS STRUCTURES: Multilevel degenerative spondylosis of the spine. CT/CT abdomen pelvis w IV con IMPRESSION: 1. The volume of the complex collection in the midabdomen around the pancreas has diminished since prior CAT scan 05/19/2022 but remains present. The air within this collection raises question of infection. 2. Free fluid in the abdomen and pelvis. 3. Bowel pattern suggests ileus. Fleischner guidelines were followed.
[2022-05-28 14:16] VITALS: BP 107/67; PULSE 113; PULSE 99; RESP 26; TEMP 36.6; O2SAT 97; O2SAT 98; BMI 39.5
--- NOTE | 2022-05-28 14:52 | ECG_ITS ---
Test Reason : VOMITING Blood Pressure : / mmHG Vent. Rate : 099 BPM Atrial Rate : 099 BPM P-R Int : 130 ms QRS Dur : 088 ms QT Int : 386 ms P-R-T Axes : 034 030 176 degrees QTc Int : 495 ms Normal sinus rhythm ST & T wave abnormality, consider inferolateral ischemia Prolonged QT Abnormal ECG When compared with ECG of 15-MAY-2022 12:29, Inverted T waves have replaced nonspecific T wave abnormality in Lateral leads Referred By: Eli Lanza Electronically Signed By:ASIM KIMBALL MD
[2022-05-28] MEDS: 0.9 % Sodium Chloride 1,000 ML 999 ML IV ×2 (15:07→16:55)
[2022-05-28] MEDS: ondansetron HCL 4 MG/2 ML VIAL IVPUSH ×2 (15:11→22:23)
[2022-05-28] MEDS: HYDROmorphone HCl 0.5 MG/0.5 ML SYRINGE IVPUSH (15:11)
--- NOTE | 2022-05-28 15:18 | ED_ITS ---
HPI - Nausea/Vomiting/Diarrhea General Chief complaint: Nausea/Vomiting/Diarrhea Stated complaint: ABD PAIN, VOMITING Time Seen by Provider: 05/28/22 14:07 History of Present Illness HPI Narrative: patient is a 76-year-old female with a history of potential gallbladder disease. Presents today with having abdominal pain. She also has a history of pulmonary emboli is on Eliquis. Patient complaining of diffuse abdominal pain nausea vomiting. Not feeling well. Has a baseline being on 2 L of oxygen for COPD. No chest pain. No diaphoresis. Patient unable to give detailed history secondary to her pain. No diarrhea noted Related Data Home Medications Medication Instructions Recorded Confirmed levothyroxine 75 mcg tablet 1 tab PO DAILY@0600 01/15/22 05/28/22 mirabegron 25 mg tablet,extended 1 tab PO DAILY 01/15/22 05/28/22 release 24 hr (Myrbetriq) omeprazole 20 mg capsule,delayed 1 cap PO BID@0630,1630 01/15/22 05/28/22 release acetaminophen 500 mg tablet 1,000 mg PO TID 02/17/22 05/28/22 bisacodyl 10 mg rectal suppository 10 mg KS DAILY PRN Constipation 02/17/22 05/28/22 (Dulcolax (bisacodyl)) dextrose 40 % oral gel (Glucose 10 g PO Q15M PRN BG <60 AND 02/17/22 05/28/22 Gel) CONSCIOUS erythromycin 250 mg tablet 250 mg PO BID 02/17/22 05/28/22 fluticasone 250 mcg-salmeterol 50 1 inh inhalation BID 02/17/22 05/28/22 mcg/dose blistr powdr for inhalation (Advair Diskus) glucagon HCl 1 mg solution for 1 mg subcut Q20M PRN BG < 60 02/17/22 05/28/22 injection (Glucagon (HCl) Emergency Kit) ipratropium 20 mcg-albuterol 100 2 puff inhalation Q6H PRN 02/17/22 05/28/22 mcg/actuation mist for inhalation Shortness Of Breath (Combivent Respimat) magnesium hydroxide 400 mg/5 mL 30 ml PO DAILY PRN Constipation 02/17/22 05/28/22 oral suspension (Milk of Magnesia) mirtazapine 7.5 mg tablet 7.5 mg PO BEDTIME 02/17/22 05/28/22 ondansetron HCl 4 mg tablet 4 mg PO BID PRN Nausea 02/17/22 05/28/22 ondansetron HCl 4 mg tablet 4 mg PO DAILY 02/17/22 05/28/22 sertraline 50 mg tablet 75 mg PO DAILY 02/17/22 05/28/22 sodium phosphates 19 gram-7 118 ml KS BEDTIME PRN Constipation 02/17/22 05/28/22 gram/118 mL enema (Fleet Enema) albuterol sulfate 90 mcg/actuation 2 puff inhalation Q4H PRN 05/28/22 05/28/22 aerosol inhaler Shortness Of Breath xnxpfs-pzbglina-fxicadr 1 cap PO TIDWM 05/28/22 05/28/22 12,000-38,000-60,000 unit capsule,delayed rel (Creon) loperamide 2 mg capsule 2 mg PO Q3H PRN Loose Stool 05/28/22 05/28/22 potassium chloride 20 mEq 20 meq PO BID 05/28/22 05/28/22 tablet,extended release psyllium husk 3.4 gram/5.4 gram 1 tsp PO BID 05/28/22 05/28/22 oral powder (Metamucil) Previous Rx's Medication Instructions Recorded apixaban 5 mg (74 tabs) tablets in 5 mg PO BID #72 ea 02/20/22 a dose pack flash glucose sensor (FreeStyle #1 ea 03/27/22 Summer 3 Sensor kit) Allergies Allergy/AdvReac Type Severity Reaction Status Date / Time influenza virus vaccine, Allergy Severe SEVERE FLU Verified 04/21/22 09:20 specific SYMPTOMS [Influenza Virus Vacc,Specific] Sulfa (Sulfonamide Allergy Intermediate Hives Verified 04/21/22 09:20 Antibiotics) amoxicillin [Amoxicillin] Allergy Unknown UNKNOWN Verified 04/21/22 09:20 Penicillins Allergy Unknown UNKNOWN Verified 04/21/22 09:20 codeine [CODEINE] AdvReac Intermediate NAUSEA & Verified 04/21/22 09:20 VOMITING Review of Systems Review of Systems: unable to obtain full review systems secondary patient's condition Yes Unobtainable due to mental status PMFSH Past Medical History Attestation statement: The following information was validated with the patient. Medical History Acute respiratory failure with hypoxia Biliary colic Colitis Colon cancer screening Depression with anxiety Dysphagia Erosive esophagitis GERD (gastroesophageal reflux disease) Hiatal hernia History of gallbladder disease Hospital discharge follow-up Hypothyroidism Ileus Left shoulder pain Mild cognitive impairment Mild persistent asthma Mild persistent asthma with (acute) exacerbation Mild recurrent major depression Morbid obesity Obesity (BMI 30-39.9) GILDA (obstructive sleep apnea) Pure hypercholesterolemia Respiratory distress Toxic encephalopathy Surgical History H/O colonoscopy History of benign ovarian tumor History of esophagogastroduodenoscopy (EGD) Family History Family History Mother Diabetes Hypertension Stroke Father Lung cancer Social History Social History Household Members: Children Household Members Other:: daughter lives downstairs Housing: House Are you a primary acute care occupational therapist to a significant other at home: No Do you presently have visiting nurse or other home services: Yes (PT) Alcohol intake: unknown Patient Tobacco Use Status: Never used Tobacco e-Cigarette/Vaping Use: Never Used Second Hand Smoke Exposure: Yes Advance Directives: Yes Advance Directives on File: Yes Advance Directives Date on File: 04/03/20 service: No Current occupational status: retired Current occupation: right handed Cognitive needs: Yes Hearing needs: No Vision needs: No Physical Exam Vital Signs: Vital Signs: Last Vital Signs Temp 98.0 F 05/28/22 18:11 Pulse 101 H 05/28/22 18:11 Resp 16 05/28/22 18:11 BP 124/74 05/28/22 18:11 Pulse Ox 96 05/28/22 18:11 O2 Del Method 05/28/22 18:11 O2 Flow Rate 2 05/28/22 18:11 Oxygen Flow Rate 2 05/28/22 14:16 BMI result Body Mass Index 39.5 Appearance: Alert. Oriented to self only No acute distress. Eyes: Pupils equal, round and reactive to light. ENT: Pharynx normal. Neck: Normal inspection. Neck supple. No lymph nodes noted. No crepitus CVS: Normal heart rate and rhythm. Pulses normal. Normal S1 and S2 Respiratory: No respiratory distress. Breath sounds normal. No Wheezing. No rales Abdomen: Soft and nontender. No rigidity. No distention. good BS x4 Skin: Skin warm and dry. Normal skin color. Normal skin turgor. Extremities: No lower extremity edema. Neurovascular intact to all extremities. No Lacerations. No Rash Neuro: Oriented to self only.. No motor deficit. No sensory deficit. Moving all extermities. No slurred speech Medications Administered Generic Name Dose Route Start Last Admin Trade Name Freq PRN Reason Stop Dose Admin Potassium Chloride 10 meq in 100 mls @ 100 mls/hr 05/28/22 16:15 05/28/22 18:17 Potassium Chloride/H20 IV 05/28/22 20:14 100 mls/hr Q1H UYEN Administration Discontinued Medications Generic Name Dose Route Start Last Admin Trade Name Freq PRN Reason Stop Dose Admin Hydromorphone HCl 0.5 mg 05/28/22 14:51 05/28/22 15:11 Hydromorphone Hcl 0.5 Mg/0.5 Ml Syringe IVPUSH 05/28/22 14:52 0.5 mg ONCE ONE Administration Protocol Sodium Chloride 1,000 mls @ 999 mls/hr 05/28/22 15:00 05/28/22 16:55 Ns IV 05/28/22 16:00 Infused .Q1H1M UYEN Infusion Sodium Chloride 1,000 mls @ 999 mls/hr 05/28/22 16:30 05/28/22 18:38 Ns IV 05/28/22 17:30 Infused .Q1H1M UYEN Infusion Iohexol 85 ml 05/28/22 17:58 05/28/22 17:58 Iohexol 350 Mg/Ml 100 Ml Infus..Btl IV 05/28/22 17:59 85 ml ONCE ONE Administration Ondansetron HCl 4 mg 05/28/22 14:51 05/28/22 15:11 Ondansetron Hcl 4 Mg/2 Ml Vial IVPUSH 05/28/22 14:52 4 mg ONCE ONE Administration Medical Decision Making Differential Diagnosis patient is 76 years old with nausea vomiting abdominal pain baseline on 2 L of oxygen at home for COPD. Patient is a poor historian. Differential including obstruction, abscess, perforation, gallbladder issue patient had an ultrasound done 2 days ago it shows gallstone but no evidence for cholecystitis. Her LFT actually improved. Making gallbladder less likely. CT scan of the abdomen showed no overt obstruction abscess perforation. It did show some fluid collection around the head of the pancreas. This is actually better than it was 2 days ago. Small amount of free fluid question physiologic. Patient is grossly dehydrated with elevated BUN and creatinine. This is new. Patient also had a low potassium was repleted. Will require admission for IV hydration. Patient's case discussed with hospitalist team. Will also consult surgery as well. Admission/Observation Consideration of admission/observation: Escalation of care including admission/observation considered For dehydration, unable tolerate p.o. Consult Healthcare Provider Management of the patient was discussed with: Wrapper Counter surgery and hospitalist team Lab Data MDM Lab Attestation statement: I reviewed the patient's lab results. 05/28/22 15:44 05/28/22 15:44 Labs: Lab Results 05/28/22 05/28/22 05/28/22 Range/Units 15:44 15:44 15:44 WBC 11.8 H (4.8-10.8) X10*3/uL RBC 4.17 L (4.20-5.50) X10*6/uL Hgb 10.4 L (12.0-16.0) g/dl Hct 32.6 L (37.0-47.0) % MCV 78.2 L (80.0-98.0) fL MCH 24.9 L (27.0-33.0) pg MCHC 31.9 (31.0-35.0) g/dl RDW 20.8 H (11.0-16.0) % Plt Count 789 H D (160-400) X10*3/uL MPV 9.4 (9.4-12.3) fL Immature Gran % (Auto) 1.1 H (0.0-0.4) % Neut % (Auto) 88.2 H (45-73) % Lymph % (Auto) 5.1 L (20-40) % [place] % (Auto) 5.2 (2-11) % Eos % (Auto) 0.0 (0-4) % Baso % (Auto) 0.4 (0-2) % Lymph # (Auto) 0.6 L (1.2-4.9) X10*3/uL [place] # (Auto) 0.6 (0.1-1.2) X10*3/uL Eos # (Auto) 0.0 (0.0-0.4) X10*3/uL Baso # (Auto) 0.1 (0.0-0.2) X10*3/uL Abs Immat Gran (auto) 0.13 H (0.00-0.03) X10*3/uL Absolute Neuts (auto) 10.4 H (2.0-8.3) x10*3/uL Absolute Nucleated RBC 0.000 (0.0-0.012) X10*3/uL Nucleated RBC % (auto) 0.0 (0.0-0.2) /100WBC Sodium (135-145) mmol/L Potassium (3.3-5.1) mmol/L Chloride (96-108) mmol/L Carbon Dioxide (22-29) mmol/L Anion Gap (12-20) BUN (9-16) mg/dL Creatinine (0.5-1.4) mg/dL Estim Creat Clear Calc Estimated GFR Random Glucose (60-115) mg/dL Lactic Acid 1.3 (0.5-2.0) mmol/L Calcium (8.4-10.2) mg/dL Magnesium (1.6-2.6) mg/dL Total Bilirubin (0.0-1.0) mg/dL Direct Bilirubin (0.0-0.5) mg/dL AST (5-31) U/L ALT (0-31) U/L Alkaline Phosphatase (39-117) U/L Troponin I High Sens (<3.5-17.0) ng/L B-Natriuretic Peptide (<100) pg/mL Total Protein (6.5-8.0) g/dL Albumin (3.5-5.0) g/dL Lipase (8-78) U/L Urine Color Urine Appearance Urine pH (5.0-9.0) Ur Specific [place] (1.005-1.025) Urine Protein (Neg-Trace) mg/dL Urine Glucose (UA) (Negative) mg/dL Urine Ketones (Negative) mg/dL Urine Blood (Negative) Urine Nitrite (Negative) Ur Leukocyte Esterase (Negative) Urine RBC (0-2) /HPF Urine WBC (0-5) /HPF Ur Squamous Epith Cells (0-2) /HPF Urine Bacteria (None Seen) Hyaline Casts (0-2) /LPF Influenza Type A (PCR) NEGATIVE (Negative) Influenza Type B (PCR) NEGATIVE (Negative) RSV RNA Qual (PCR) NEGATIVE (Negative) SARS-CoV-2 RNA (RT-PCR) NEGATIVE (Negative) 05/28/22 05/28/22 05/28/22 Range/Units 15:44 15:44 15:44 WBC (4.8-10.8) X10*3/uL RBC (4.20-5.50) X10*6/uL Hgb (12.0-16.0) g/dl Hct (37.0-47.0) % MCV (80.0-98.0) fL MCH (27.0-33.0) pg MCHC (31.0-35.0) g/dl RDW (11.0-16.0) % Plt Count (160-400) X10*3/uL MPV (9.4-12.3) fL Immature Gran % (Auto) (0.0-0.4) % Neut % (Auto) (45-73) % Lymph % (Auto) (20-40) % [place] % (Auto) (2-11) % Eos % (Auto) (0-4) % Baso % (Auto) (0-2) % Lymph # (Auto) (1.2-4.9) X10*3/uL [place] # (Auto) (0.1-1.2) X10*3/uL Eos # (Auto) (0.0-0.4) X10*3/uL Baso # (Auto) (0.0-0.2) X10*3/uL Abs Immat Gran (auto) (0.00-0.03) X10*3/uL Absolute Neuts (auto) (2.0-8.3) x10*3/uL Absolute Nucleated RBC (0.0-0.012) X10*3/uL Nucleated RBC % (auto) (0.0-0.2) /100WBC Sodium 136 (135-145) mmol/L Potassium 2.7 L (3.3-5.1) mmol/L Chloride 99 (96-108) mmol/L Carbon Dioxide 21 L (22-29) mmol/L Anion Gap 19 (12-20) BUN 29 H (9-16) mg/dL Creatinine 1.20 (0.5-1.4) mg/dL Estim Creat Clear Calc 51.9 Estimated GFR 44 Random Glucose 190 H (60-115) mg/dL Lactic Acid (0.5-2.0) mmol/L Calcium 7.5 L (8.4-10.2) mg/dL Magnesium 1.7 (1.6-2.6) mg/dL Total Bilirubin 0.4 (0.0-1.0) mg/dL Direct Bilirubin 0.2 (0.0-0.5) mg/dL AST 7 (5-31) U/L ALT 6 (0-31) U/L Alkaline Phosphatase 214 H (39-117) U/L Troponin I High Sens 7.5 (<3.5-17.0) ng/L B-Natriuretic Peptide 79 (<100) pg/mL Total Protein 4.7 L (6.5-8.0) g/dL Albumin 1.9 L (3.5-5.0) g/dL Lipase 21 (8-78) U/L Urine Color Urine Appearance Urine pH (5.0-9.0) Ur Specific [place] (1.005-1.025) Urine Protein (Neg-Trace) mg/dL Urine Glucose (UA) (Negative) mg/dL Urine Ketones (Negative) mg/dL Urine Blood (Negative) Urine Nitrite (Negative) Ur Leukocyte Esterase (Negative) Urine RBC (0-2) /HPF Urine WBC (0-5) /HPF Ur Squamous Epith Cells (0-2) /HPF Urine Bacteria (None Seen) Hyaline Casts (0-2) /LPF Influenza Type A (PCR) (Negative) Influenza Type B (PCR) (Negative) RSV RNA Qual (PCR) (Negative) SARS-CoV-2 RNA (RT-PCR) (Negative) 05/28/22 Range/Units 16:53 WBC (4.8-10.8) X10*3/uL RBC (4.20-5.50) X10*6/uL Hgb (12.0-16.0) g/dl Hct (37.0-47.0) % MCV (80.0-98.0) fL MCH (27.0-33.0) pg MCHC (31.0-35.0) g/dl RDW (11.0-16.0) % Plt Count (160-400) X10*3/uL MPV (9.4-12.3) fL Immature Gran % (Auto) (0.0-0.4) % Neut % (Auto) (45-73) % Lymph % (Auto) (20-40) % [place] % (Auto) (2-11) % Eos % (Auto) (0-4) % Baso % (Auto) (0-2) % Lymph # (Auto) (1.2-4.9) X10*3/uL [place] # (Auto) (0.1-1.2) X10*3/uL Eos # (Auto) (0.0-0.4) X10*3/uL Baso # (Auto) (0.0-0.2) X10*3/uL Abs Immat Gran (auto) (0.00-0.03) X10*3/uL Absolute Neuts (auto) (2.0-8.3) x10*3/uL Absolute Nucleated RBC (0.0-0.012) X10*3/uL Nucleated RBC % (auto) (0.0-0.2) /100WBC Sodium (135-145) mmol/L Potassium (3.3-5.1) mmol/L Chloride (96-108) mmol/L Carbon Dioxide (22-29) mmol/L Anion Gap (12-20) BUN (9-16) mg/dL Creatinine (0.5-1.4) mg/dL Estim Creat Clear Calc Estimated GFR Random Glucose (60-115) mg/dL Lactic Acid (0.5-2.0) mmol/L Calcium (8.4-10.2) mg/dL Magnesium (1.6-2.6) mg/dL Total Bilirubin (0.0-1.0) mg/dL Direct Bilirubin (0.0-0.5) mg/dL AST (5-31) U/L ALT (0-31) U/L Alkaline Phosphatase (39-117) U/L Troponin I High Sens (<3.5-17.0) ng/L B-Natriuretic Peptide (<100) pg/mL Total Protein (6.5-8.0) g/dL Albumin (3.5-5.0) g/dL Lipase (8-78) U/L Urine Color Dark Yellow Urine Appearance Turbid Urine pH 5.0 (5.0-9.0) Ur Specific [place] 1.025 (1.005-1.025) Urine Protein 100 (2+) H (Neg-Trace) mg/dL Urine Glucose (UA) Negative (Negative) mg/dL Urine Ketones Trace (Negative) mg/dL Urine Blood Large (3+) H (Negative) Urine Nitrite Negative (Negative) Ur Leukocyte Esterase Trace H (Negative) Urine RBC >20 H (0-2) /HPF Urine WBC 11-20 H (0-5) /HPF Ur Squamous Epith Cells >20 (0-2) /HPF Urine Bacteria Trace (None Seen) Hyaline Casts >20 (0-2) /LPF Influenza Type A (PCR) (Negative) Influenza Type B (PCR) (Negative) RSV RNA Qual (PCR) (Negative) SARS-CoV-2 RNA (RT-PCR) (Negative) Independent Interpretation I performed an independent interpretation of an: EKG Interpretation: sinus pattern heart rate is 100 KS QRS QT within normal limits there is diffuse ST segment flattening noted. Chronic Conditions Patient?s care impacted by: Hypertension Discharge Plan Discharge Clinical Impression: Acute dehydration, Increased nausea and vomiting, Abdominal pain Patient Disposition: Admitted As Inpatient Prescriptions: No Action levothyroxine 75 mcg tablet 1 tab PO DAILY@0600 omeprazole 20 mg capsule,delayed release(DR/EC) 1 cap PO BID@0630,1630 Myrbetriq 25 mg tablet extended release 24 hr 1 tab PO DAILY fluticasone propion-salmeterol [Advair Diskus] 250-50 mcg/dose Blister With Device 1 inh INHALATION BID ondansetron HCl 4 mg Tablet 4 mg PO BID PRN (Reason: Nausea) ondansetron HCl 4 mg Tablet 4 mg PO DAILY acetaminophen 500 mg Tablet 1,000 mg PO TID erythromycin 250 mg Tablet 250 mg PO BID magnesium hydroxide [Milk of Magnesia] 400 mg/5 mL Suspension 30 ml PO DAILY PRN (Reason: Constipation) bisacodyl [Dulcolax (bisacodyl)] 10 mg Suppository 10 mg KS DAILY PRN (Reason: Constipation) sertraline 50 mg Tablet 75 mg PO DAILY mirtazapine 7.5 mg Tablet 7.5 mg PO BEDTIME Combivent Respimat 20-100 mcg/actuation Mist 2 puff INHALATION Q6H PRN (Reason: Shortness Of Breath) dextrose [Glucose Gel] 40 % Gel 10 g PO Q15M PRN (Reason: BG <60 AND CONSCIOUS) Rx Instructions: until symptoms of low blood sugar are controlled Fleet Enema 19-7 gram/118 mL Enema 118 ml KS BEDTIME PRN (Reason: Constipation) glucagon HCl [Glucagon (HCl) Emergency Kit] 1 mg Recon Soln 1 mg SUBCUT Q20M PRN (Reason: BG < 60) Rx Instructions: until target blood sugar attained apixaban 5 mg (74 tabs) tablets,dose pack 5 mg PO BID Qty: 72 0RF loperamide 2 mg Capsule 2 mg PO Q3H PRN (Reason: Loose Stool) Rx Instructions: do not exceed 16mg albuterol sulfate 90 mcg/actuation HFA aerosol inhaler 2 puff INHALATION Q4H PRN (Reason: Shortness Of Breath) potassium chloride 20 mEq Tablet Extended Release 20 meq PO BID Metamucil 3.4 gram/5.4 gram Powder 1 tsp PO BID Rx Instructions: mix into at least 8 oz water or juice before administering Creon 12,000-38,000 -60,000 unit capsule,delayed release(DR/EC) 1 cap PO TIDWM Rx Instructions: administer with meals and/or snacks (DME) FreeStyle Summer 3 Sensor Kit See Rx Instructions .Route Qty: 1 0RF Rx Instructions: As directed
[2022-05-28 15:49] LABS: MANUAL DIFF FLAG NO
[2022-05-28 15:50] LABS: Basophils Absolute Auto 0.1 X10*3/uL (0.0-0.2); Basophils Percent Auto 0.4 % (0-2); Hematocrit 32.6 % (37.0-47.0); Hemoglobin 10.4 g/dl (12.0-16.0); Imm Gran Abs Auto 0.13 X10*3/uL (0.00-0.03); Imm Gran Pct Auto 1.1 % (0.0-0.4); Lymphocytes Absolute Auto 0.6 X10*3/uL (1.2-4.9); Lymphocytes Percent Auto 5.1 % (20-40); Mean Corpuscular HGB Conc 31.9 g/dl (31.0-35.0); Mean Corpuscular Hemoglobin 24.9 pg (27.0-33.0); Mean Corpuscular Volume 78.2 fL (80.0-98.0); Mean Platelet Volume 9.4 fL (9.4-12.3); Monocytes Absolute Auto 0.6 X10*3/uL (0.1-1.2); Monocytes Percent Auto 5.2 % (2-11); Neutrophils Absolute Auto 10.4 x10*3/uL (2.0-8.3); Neutrophils Percent Auto 88.2 % (45-73); Platelet Count 789 X10*3/uL (160-400); Red Blood Count 4.17 X10*6/uL (4.20-5.50); Red Cell Distribution Width 20.8 % (11.0-16.0); White Blood Count 11.8 X10*3/uL (4.8-10.8)
--- NOTE | 2022-05-28 16:01 | PHA.MEDREC ---
Pharmacy Consult ? Medication Reconciliation Pharmacy has completed the medication reconciliation. Called [facility], spoke to Jerod who faxed over list.
[2022-05-28 16:05] LABS: Lactic Acid 1.3 mmol/L (0.5-2.0)
[2022-05-28 16:11] LABS: Alanine Aminotransferase 6 U/L (0-31); Albumin Level 1.9 g/dL (3.5-5.0); Alkaline Phosphatase 214 U/L (39-117); Anion Gap 19 (12-20); Aspartate Amino Transferase 7 U/L (5-31); Bilirubin Direct 0.2 mg/dL (0.0-0.5); Bilirubin Total 0.4 mg/dL (0.0-1.0); Blood Urea Nitrogen 29 mg/dL (9-16); Calcium 7.5 mg/dL (8.4-10.2); Carbon Dioxide 21 mmol/L (22-29); Chloride 99 mmol/L (96-108); Creatinine Clr Calc Pharmacy 51.9; Estimated Glomerular Filt Rate 44; Glucose Random 190 mg/dL (60-115); Lipase 21 U/L (8-78); Potassium 2.7 mmol/L (3.3-5.1); Sodium 136 mmol/L (135-145); Total Protein 4.7 g/dL (6.5-8.0)
[2022-05-28 16:13] VITALS: BP 128/86; PULSE 101; RESP 15; TEMP 36.8; O2SAT 94
[2022-05-28 16:15] LABS: B Type Natriuretic Peptide 79 pg/mL (<100)
[2022-05-28 16:18] LABS: Troponin-I High Sensitivity 7.5 ng/L (<3.5-17.0)
[2022-05-28 16:30] LABS: Magnesium 1.7 mg/dL (1.6-2.6)
[2022-05-28 16:32] LABS: Influenza A PCR NEGATIVE (Negative); Influenza B PCR NEGATIVE (Negative); Resp Syncy Virus RNA Qual PCR NEGATIVE (Negative); SARS COV2 PCR INHOUSE NEGATIVE (Negative)
[2022-05-28] MEDS: Potassium Chloride/H20 10 MEQ/100 ML PIGGYBACK 100 MEQ IV ×6 (16:55→23:29)
[2022-05-28 17:00] VITALS: BP 127/86; PULSE 105; RESP 16; TEMP 36.8; O2SAT 97
[2022-05-28 17:00] LABS: Appearance Urine Turbid; Color Urine Dark Yellow; Glucose Urine UA Negative (Negative); Leukocyte Esterase Urine Trace (Negative); Nitrite Urine Negative (Negative); Specific Gravity - Urine 1.025 (1.005-1.025); UMIC TRIGGER UACC YES; Urine Blood Large (3+) (Negative); Urine Ketones Trace mg/dL (Negative); Urine Protein 100 (2+) mg/dL (Neg-Trace)
--- NOTE | 2022-05-28 17:02 | PC.NURSE ---
Pt coming from [facility] for nausea, vomiting, and abd pain. Upon arrival pt requesting water and stating of generalized abd pain and having vomited once. Pt poor historian as to events leading to emergency room visit. IV established, labs drawn and sent. Pt sinus tach on the monitor. Straight cath obtained with <50 ml of urine output. Rectal temp 98.3.
[2022-05-28 17:11] LABS: Hyaline Casts Urine >20 /LPF (0-2); RBC Urine >20 /HPF (0-2); Squamous Epithelial Cell Urine >20 /HPF (0-2); UACC Culture Trigger YES
[2022-05-28 17:13] LABS: Bacteria Urine Trace (None Seen)
[2022-05-28] MEDS: iohexoL 350 MG/ML 100 ML INFUS..BTL 85 ML IV (17:58)
[2022-05-28 18:11] VITALS: BP 124/74; PULSE 101; RESP 16; TEMP 36.7; O2SAT 96
--- NOTE | 2022-05-28 18:17 | PC.NURSE ---
Pt went for CT scan. Second liter and second bag of potassium running.
--- NOTE | 2022-05-28 19:27 | PC.NURSE ---
pt assessed, reported no pain, disoriented, oriented to place and time, 3rd bag of potassium infusing
--- NOTE | 2022-05-28 19:36 | P.HPHOSP_ITS ---
History of Present Illness Date of Service: 05/28/22 Chief Complaint: Abdominal pain/nausea vomiting This is a 76-year-old male with pertinent history of PE on Eliquis, mood disorder, gastroesophageal reflux disease, urinary incontinence, hypothyroidism, COPD on baseline 2 L supplemental oxygen who presents to the emergency department evaluation of abdominal pain/nausea and vomiting. Patient states she has not been feeling well. She is a poor historian and unable to give specifics. States was having generalized abdominal discomfort and associated nausea/vomiting. Unable to obtain review of systems. In the emergency department, complex collection around the pancreas. General surgery was consulted who will evaluate the patient in a.m. Review of Systems Review of Systems: Yes Unobtainable due to mental status PMFSH Medical History Acute respiratory failure with hypoxia Biliary colic Colitis Colon cancer screening Depression with anxiety Dysphagia Erosive esophagitis GERD (gastroesophageal reflux disease) Hiatal hernia History of gallbladder disease Hospital discharge follow-up Hypothyroidism Ileus Left shoulder pain Mild cognitive impairment Mild persistent asthma Mild persistent asthma with (acute) exacerbation Mild recurrent major depression Morbid obesity Obesity (BMI 30-39.9) GILDA (obstructive sleep apnea) Pure hypercholesterolemia Respiratory distress Toxic encephalopathy Family History Mother Diabetes Hypertension Stroke Father Lung cancer Surgical History H/O colonoscopy History of benign ovarian tumor History of esophagogastroduodenoscopy (EGD) Social History Household Members: Children Household Members Other:: daughter lives downstairs Housing: House Are you a primary care administrative tech to a significant other at home: No Do you presently have visiting nurse or other home services: Yes (PT) Alcohol intake: unknown Patient Tobacco Use Status: Never used Tobacco e-Cigarette/Vaping Use: Never Used Second Hand Smoke Exposure: Yes Advance Directives: Yes Advance Directives on File: Yes Advance Directives Date on File: 04/03/20 service: No Current occupational status: retired Current occupation: right handed Cognitive needs: Yes Hearing needs: No Vision needs: No Meds Allergies Allergy/AdvReac Type Severity Reaction Status Date / Time influenza virus vaccine, Allergy Severe SEVERE FLU Verified 04/21/22 09:20 specific SYMPTOMS [Influenza Virus Vacc,Specific] Sulfa (Sulfonamide Allergy Intermediate Hives Verified 04/21/22 09:20 Antibiotics) amoxicillin [Amoxicillin] Allergy Unknown UNKNOWN Verified 04/21/22 09:20 Penicillins Allergy Unknown UNKNOWN Verified 04/21/22 09:20 codeine [CODEINE] AdvReac Intermediate NAUSEA & Verified 04/21/22 09:20 VOMITING Active Medications: Current Medications Acetaminophen (Acetaminophen 325 Mg Tablet) 650 mg PO Q6H PRN PRN Reason: Pain, Mild (Pain Scale 1-3) Potassium Chloride (Potassium Chloride/H20) 10 meq in 100 mls @ 100 mls/hr IV Q1H [facility] Stop: 05/28/22 20:14 Last Admin: 05/28/22 19:26 Dose: 100 mls/hr Melatonin (Melatonin 3 Mg Tablet) 6 mg PO BEDTIME PRN PRN Reason: Insomnia Ondansetron HCl (Ondansetron Hcl 4 Mg/2 Ml Vial) 4 mg IVPUSH Q8H PRN PRN Reason: Nausea and Vomiting Pharmacy Consult (Consult Rx Perform Med Rec) 1 each MISCELLANE ONCE PRN PRN Reason: Consult order Sodium Chloride (0.9 % Sodium Chloride Flush 3 Ml Syringe) [facility] Medications Medication Instructions Recorded Confirmed Last Taken Type levothyroxine 75 mcg tablet 1 tab PO DAILY@0600 01/15/22 05/28/22 Unknown History mirabegron 25 mg tablet,extended 1 tab PO DAILY 01/15/22 05/28/22 Unknown History release 24 hr (Myrbetriq) omeprazole 20 mg capsule,delayed 1 cap PO BID@0630,1630 01/15/22 05/28/22 Unknown History release acetaminophen 500 mg tablet 1,000 mg PO TID 02/17/22 05/28/22 Unknown History bisacodyl 10 mg rectal suppository 10 mg CA DAILY PRN Constipation 02/17/22 05/28/22 Unknown History (Dulcolax (bisacodyl)) dextrose 40 % oral gel (Glucose 10 g PO Q15M PRN BG <60 AND 02/17/22 05/28/22 Unknown History Gel) CONSCIOUS erythromycin 250 mg tablet 250 mg PO BID 02/17/22 05/28/22 Unknown History fluticasone 250 mcg-salmeterol 50 1 inh inhalation BID 02/17/22 05/28/22 Unknown History mcg/dose blistr powdr for inhalation (Advair Diskus) glucagon HCl 1 mg solution for 1 mg subcut Q20M PRN BG < 60 02/17/22 05/28/22 Unknown History injection (Glucagon (HCl) Emergency Kit) ipratropium 20 mcg-albuterol 100 2 puff inhalation Q6H PRN 02/17/22 05/28/22 Unknown History mcg/actuation mist for inhalation Shortness Of Breath (Combivent Respimat) magnesium hydroxide 400 mg/5 mL 30 ml PO DAILY PRN Constipation 02/17/22 05/28/22 Unknown History oral suspension (Milk of Magnesia) mirtazapine 7.5 mg tablet 7.5 mg PO BEDTIME 02/17/22 05/28/22 Unknown History ondansetron HCl 4 mg tablet 4 mg PO BID PRN Nausea 02/17/22 05/28/22 Unknown History ondansetron HCl 4 mg tablet 4 mg PO DAILY 02/17/22 05/28/22 Unknown History sertraline 50 mg tablet 75 mg PO DAILY 02/17/22 05/28/22 Unknown History sodium phosphates 19 gram-7 118 ml CA BEDTIME PRN Constipation 02/17/22 05/28/22 Unknown History gram/118 mL enema (Fleet Enema) albuterol sulfate 90 mcg/actuation 2 puff inhalation Q4H PRN 05/28/22 05/28/22 Unknown History aerosol inhaler Shortness Of Breath [id number] 1 cap PO TIDWM 05/28/22 05/28/22 Unknown History 12,000-38,000-60,000 unit capsule,delayed rel (Creon) loperamide 2 mg capsule 2 mg PO Q3H PRN Loose Stool 05/28/22 05/28/22 Unknown History potassium chloride 20 mEq 20 meq PO BID 05/28/22 05/28/22 Unknown History tablet,extended release psyllium husk 3.4 gram/5.4 gram 1 tsp PO BID 05/28/22 05/28/22 Unknown History oral powder (Metamucil) Physical Exam Vital Signs and Narrative: Vital Signs: Last Vital Signs Temp 98.0 F 05/28/22 18:11 Pulse 101 H 05/28/22 18:11 Resp 16 05/28/22 18:11 BP 124/74 05/28/22 18:11 Pulse Ox 96 05/28/22 18:11 O2 Del Method 05/28/22 18:11 O2 Flow Rate 2 05/28/22 18:11 Oxygen Flow Rate 2 05/28/22 14:16 BMI result Body Mass Index 39.5 Elderly female lying in bed on 2 L supplemental oxygen Neck supple, no JVD Tachycardic with regular rhythm, S1-S2 heard Regular breath sounds bilaterally, no wheezing or crackles appreciated Abdomen with generalized tenderness to deep palpation, no guarding, no rigidity, no rebound tenderness Patient is awake, alert and oriented to self, disoriented to place, time and person ; no focal motor deficit Psych: Normal mood Results Labs 05/28/22 15:44 05/28/22 15:44 Labs: Laboratory Results - last 24 hr 05/28/22 05/28/22 05/28/22 15:44 15:44 15:44 MCV 78.2 L MCH 24.9 L MCHC 31.9 RDW 20.8 H Plt Count 789 H D MPV 9.4 Immature Gran % (Auto) 1.1 H Neut % (Auto) 88.2 H Lymph % (Auto) 5.1 L [place] % (Auto) 5.2 Eos % (Auto) 0.0 Baso % (Auto) 0.4 Lymph # (Auto) 0.6 L [place] # (Auto) 0.6 Eos # (Auto) 0.0 Baso # (Auto) 0.1 Abs Immat Gran (auto) 0.13 H Absolute Neuts (auto) 10.4 H Absolute Nucleated RBC 0.000 Nucleated RBC % (auto) 0.0 Anion Gap Estim Creat Clear Calc Estimated GFR Random Glucose Lactic Acid 1.3 Calcium Magnesium Total Bilirubin Direct Bilirubin AST ALT Alkaline Phosphatase Troponin I High Sens B-Natriuretic Peptide Total Protein Albumin Lipase Urine Color Urine Appearance Urine pH Ur Specific [place] Urine Protein Urine Glucose (UA) Urine Ketones Urine Blood Urine Nitrite Ur Leukocyte Esterase Urine RBC Urine WBC Ur Squamous Epith Cells Urine Bacteria Hyaline Casts Influenza Type A (PCR) NEGATIVE Influenza Type B (PCR) NEGATIVE RSV RNA Qual (PCR) NEGATIVE SARS-CoV-2 RNA (RT-PCR) NEGATIVE 05/28/22 05/28/22 05/28/22 15:44 15:44 15:44 MCV MCH MCHC RDW Plt Count MPV Immature Gran % (Auto) Neut % (Auto) Lymph % (Auto) [place] % (Auto) Eos % (Auto) Baso % (Auto) Lymph # (Auto) [place] # (Auto) Eos # (Auto) Baso # (Auto) Abs Immat Gran (auto) Absolute Neuts (auto) Absolute Nucleated RBC Nucleated RBC % (auto) Anion Gap 19 Estim Creat Clear Calc 51.9 Estimated GFR 44 Random Glucose 190 H Lactic Acid Calcium 7.5 L Magnesium 1.7 Total Bilirubin 0.4 Direct Bilirubin 0.2 AST 7 ALT 6 Alkaline Phosphatase 214 H Troponin I High Sens 7.5 B-Natriuretic Peptide 79 Total Protein 4.7 L Albumin 1.9 L Lipase 21 Urine Color Urine Appearance Urine pH Ur Specific [place] Urine Protein Urine Glucose (UA) Urine Ketones Urine Blood Urine Nitrite Ur Leukocyte Esterase Urine RBC Urine WBC Ur Squamous Epith Cells Urine Bacteria Hyaline Casts Influenza Type A (PCR) Influenza Type B (PCR) RSV RNA Qual (PCR) SARS-CoV-2 RNA (RT-PCR) 05/28/22 16:53 MCV MCH MCHC RDW Plt Count MPV Immature Gran % (Auto) Neut % (Auto) Lymph % (Auto) [place] % (Auto) Eos % (Auto) Baso % (Auto) Lymph # (Auto) [place] # (Auto) Eos # (Auto) Baso # (Auto) Abs Immat Gran (auto) Absolute Neuts (auto) Absolute Nucleated RBC Nucleated RBC % (auto) Anion Gap Estim Creat Clear Calc Estimated GFR Random Glucose Lactic Acid Calcium Magnesium Total Bilirubin Direct Bilirubin AST ALT Alkaline Phosphatase Troponin I High Sens B-Natriuretic Peptide Total Protein Albumin Lipase Urine Color Dark Yellow Urine Appearance Turbid Urine pH 5.0 Ur Specific [place] 1.025 Urine Protein 100 (2+) H Urine Glucose (UA) Negative Urine Ketones Trace Urine Blood Large (3+) H Urine Nitrite Negative Ur Leukocyte Esterase Trace H Urine RBC >20 H Urine WBC 11-20 H Ur Squamous Epith Cells >20 Urine Bacteria Trace Hyaline Casts >20 Influenza Type A (PCR) Influenza Type B (PCR) RSV RNA Qual (PCR) SARS-CoV-2 RNA (RT-PCR) Imaging Radiologist's Impressions: Impressions Chest X-Ray 05/28/22 15:54 IMPRESSION: Small lung volumes. Abdomen/Pelvis CT 05/28/22 18:03 IMPRESSION: 1. The volume of the complex collection in the midabdomen around the pancreas has diminished since prior CAT scan 05/19/2022 but remains present. The air within this collection raises question of infection. 2. Free fluid in the abdomen and pelvis. 3. Bowel pattern suggests ileus. Fleischner guidelines were followed. Assessment and Plan (1) Abdominal pain: Status: Acute (2) Increased nausea and vomiting: Status: Acute Plan This is a 76-year-old male with pertinent history of PE on Eliquis, mood disorder, gastroesophageal reflux disease, urinary incontinence, hypothyroidism, COPD on baseline 2 L supplemental oxygen who presents to the emergency department evaluation of abdominal pain/nausea and vomiting. #. Abdominal pain/nausea and vomiting: Unclear etiology. Imaging with complex collection around the pancreas with suspicion for infection. Initiating IV Zosyn empirically. General surgery consulted from the ER, appreciate assistance. Does have history of gallstones, obtaining HIDA scan to rule out gallbladder etiology #. Acute metabolic encephalopathy in the setting of above: Monitor mentation #. History of PE: Continue Eliquis #. Mood disorder: Continue home mood stabilizers #. Hypothyroidism: On Synthroid. Obtain TSH #. Chronic hypoxemic respiratory failure due to COPD: Continue home baseline 2 L supplemental oxygen. No exacerbation on admission #. Chronic microcytic anemia: Obtaining iron studies #. Hypokalemia: Repleted #. Hyperglycemia: Obtain A1c. Initiate Accu-Cheks with sliding scale insulin Med rec pending DVT prophylaxis: Eliquis Regular diet Full code Time Spent With Patient Time: Total time managing care of this patient today ____ minutes. Quality Stroke Does the patient have a stroke diagnosis?: No VTE Prior VTE?: No VTE Risk Level:: Medical - moderate - high VTE Device Contraindication: Treatment Not Indicated VTE Drug Contraindication: N/A - Med Ordered
[2022-05-28 20:24] LABS: Iron 34 mcg/dL (30-160); Percent Iron Saturation 33 % (15-50); Total Iron Binding Capacity 104 mcg/dL (228-428); Unsaturated Iron Binding 70 ug/dL
[2022-05-28] MEDS: Piperacillin Sodium/Tazobactam 4.5 GM in 0.9 % Sodium Chloride 100 ML IV (20:32)
[2022-05-28] MEDS: Apixaban 5 MG TABLET PO (21:20)
[2022-05-28] MEDS: Potassium Chloride Packet 20 MEQ PACKET 40 MEQ PO (21:20)
--- NOTE | 2022-05-28 21:37 | PC.NURSE ---
pt assessed tolerated po fluids
[2022-05-28 22:02] VITALS: BP 111/72; PULSE 70; RESP 20; TEMP 36.2; O2SAT 97
[2022-05-28 22:10] LABS: Glucose, Whole Blood 160 mg/dL (60-115)
[2022-05-29] MEDS: Potassium Chloride/H20 10 MEQ/100 ML PIGGYBACK 100 MEQ IV ×2 (00:38→01:43)
[2022-05-29] MEDS: Piperacillin Sodium/Tazobactam 4.5 GM in 0.9 % Sodium Chloride 100 ML IV ×4 (02:53→20:27)
[2022-05-29 03:15] VITALS: BP 143/69; PULSE 101; RESP 18; TEMP 36.3; O2SAT 97
[2022-05-29 05:16] LABS: Estimated Average Glucose 140 mg/dL; Hemoglobin A1c % 6.5 %
[2022-05-29 06:33] LABS: MANUAL DIFF FLAG NO
[2022-05-29 06:39] LABS: Basophils Absolute Auto 0.1 X10*3/uL (0.0-0.2); Basophils Percent Auto 0.6 % (0-2); Eosinophils Percent Auto 0.1 % (0-4); Hematocrit 36.6 % (37.0-47.0); Hemoglobin 11.6 g/dl (12.0-16.0); Imm Gran Abs Auto 0.13 X10*3/uL (0.00-0.03); Imm Gran Pct Auto 1.5 % (0.0-0.4); Lymphocytes Absolute Auto 0.8 X10*3/uL (1.2-4.9); Lymphocytes Percent Auto 8.6 % (20-40); Mean Corpuscular HGB Conc 31.7 g/dl (31.0-35.0); Mean Corpuscular Hemoglobin 25.1 pg (27.0-33.0); Mean Platelet Volume 9.6 fL (9.4-12.3); Monocytes Absolute Auto 0.6 X10*3/uL (0.1-1.2); Monocytes Percent Auto 6.9 % (2-11); Neutrophils Absolute Auto 7.4 x10*3/uL (2.0-8.3); Neutrophils Percent Auto 82.3 % (45-73); Platelet Count 712 X10*3/uL (160-400); Red Blood Count 4.63 X10*6/uL (4.20-5.50); Red Cell Distribution Width 21.8 % (11.0-16.0)
[2022-05-29 07:27] VITALS: BP 114/86; PULSE 95; RESP 18; TEMP 36.2; O2SAT 96
[2022-05-29 08:12] LABS: Glucose, Whole Blood 152 mg/dL (60-115)
--- NOTE | 2022-05-29 08:25 | PM.CNGS ---
History of Present Illness Consult details Consult date: 05/29/22 Narrative: 76-year-old female referred for complex pancreatic cyst. [facility] She was actually admitted last night for nausea, vomiting and abdominal pain. She is known to me for history of gallstones with CBD stones. She had undergone ERCP for CBD obstruction last January,. She unfortunately developed severe post ERCP pancreatitis at that time and had a prolonged hospital stay. I have been following her in the office. She does have multiple medical problems as well and after discussions with her and her daughter who is very involved with her care, have decided to avoid surgical intervention as much as possible because of her overall health. She currently denies abdominal pain and says that she feels better. No vomiting had been reported overnight. Review of Systems Constitutional: Constitutional: Denies chills and Denies fever(s) Cardiovascular: Cardiovascular: Denies chest pain at rest, Reports dyspnea and Reports dyspnea on exertion Respiratory: Respiratory: Reports dyspnea and Reports dyspnea on exertion Gastrointestinal: Gastrointestinal: Reports vomiting Genitourinary: Genitourinary: Denies difficulty voiding Musculoskeletal: Musculoskeletal: Reports abnormal gait Neurologic: Reports abnormal gait [facility] Past Medical History Medical History (Updated 05/29/22 @ 08:29 by Ephraim Ortega MD) Acute respiratory failure with hypoxia Biliary colic Colitis Colon cancer screening Depression with anxiety Dysphagia Erosive esophagitis GERD (gastroesophageal reflux disease) Hiatal hernia History of gallbladder disease Hospital discharge follow-up Hypothyroidism Ileus Left shoulder pain Mild cognitive impairment Mild persistent asthma Mild persistent asthma with (acute) exacerbation Mild recurrent major depression Morbid obesity Obesity (BMI 30-39.9) GILDA (obstructive sleep apnea) Pancreatic cyst Pure hypercholesterolemia Respiratory distress Toxic encephalopathy Family History Family History Mother Diabetes Hypertension Stroke Father Lung cancer Surgical History Surgical History H/O colonoscopy History of benign ovarian tumor History of esophagogastroduodenoscopy (EGD) Social History Social History Household Members: Children Household Members Other:: daughter lives downstairs Housing: House Are you a primary reproductive healthcare assistant to a significant other at home: No Do you presently have visiting nurse or other home services: Yes (PT) Alcohol intake: unknown Patient Tobacco Use Status: Never used Tobacco e-Cigarette/Vaping Use: Never Used Second Hand Smoke Exposure: Yes Advance Directives Date on File: 04/03/20 service: No Current occupational status: retired Current occupation: right handed Cognitive needs: Yes Hearing needs: No Vision needs: No Meds Allergies Allergy/AdvReac Type Severity Reaction Status Date / Time influenza virus vaccine, Allergy Severe SEVERE FLU Verified 04/21/22 09:20 specific SYMPTOMS [Influenza Virus Vacc,Specific] Sulfa (Sulfonamide Allergy Intermediate Hives Verified 04/21/22 09:20 Antibiotics) amoxicillin [Amoxicillin] Allergy Unknown UNKNOWN Verified 04/21/22 09:20 Penicillins Allergy Unknown UNKNOWN Verified 04/21/22 09:20 codeine [CODEINE] AdvReac Intermediate NAUSEA & Verified 04/21/22 09:20 VOMITING Active Medications: Current Medications Acetaminophen (Acetaminophen 325 Mg Tablet) 650 mg PO Q6H PRN PRN Reason: Pain, Mild (Pain Scale 1-3) Apixaban (Apixaban 5 Mg Tablet) 5 mg PO BID [facility] Last Admin: 05/28/22 21:20 Dose: 5 mg Dextrose (Dextrose 50 % 25 Gm/50 Ml Syringe) 25 gm IVPUSH Q15M PRN; Protocol PRN Reason: per Hypoglycemia Standing Ord. Glucose (Glucose Gel 15 Gm Gel..Gram.) 15 gm PO Q15M PRN; Protocol PRN Reason: per Hypoglycemia Standing Ord. Piperacillin Sod/Tazobactam (Sod 4.5 gm/ Sodium Chloride) 100 mls @ 200 mls/hr IV Q6H [facility] Last Infusion: 05/29/22 03:46 Dose: Infused Insulin Human Lispro (Insulin Lispro 100 Unit/Ml 3 Ml Vial) 0 unit SUBCUT QIDACHS [facility]; Protocol Last Admin: 05/28/22 22:10 Dose: Not Given Levothyroxine Sodium (Levothyroxine Sodium 75 Mcg Tablet) 75 mcg PO DAILY@0600 [facility] Melatonin (Melatonin 3 Mg Tablet) 6 mg PO BEDTIME PRN PRN Reason: Insomnia Mirtazapine (Mirtazapine 7.5 Mg Tablet) 7.5 mg PO BEDTIME [facility] Non-Formulary Medication (Pivhwz-Bvhyxecg-Dlfibmw [Creon]) 1 cap PO TIDWM [facility] Omeprazole (Omeprazole 20 Mg Capsule.) 20 mg PO BID@0630,1630 [facility] Ondansetron HCl (Ondansetron Hcl 4 Mg/2 Ml Vial) 4 mg IVPUSH Q8H PRN PRN Reason: Nausea and Vomiting Last Admin: 05/28/22 22:23 Dose: 4 mg Pharmacy Consult (Consult Rx Perform Med Rec) 1 each MISCELLANE ONCE PRN PRN Reason: Consult order Potassium Chloride (Potassium Chloride Er 20 Meq Tab.Er.Prt) 20 meq PO BID [facility] Sertraline HCl (Sertraline Hcl 25 Mg Tablet) 75 mg PO DAILY [facility] Sodium Chloride (0.9 % Sodium Chloride Flush 3 Ml Syringe) 3 ml IVFLUSH QSHIFT UYEN Last Admin: 05/29/22 00:08 Dose: Not Given Home Medications Medication Instructions Recorded Confirmed Last Taken Type levothyroxine 75 mcg tablet 1 tab PO DAILY@0600 01/15/22 05/28/22 Unknown History mirabegron 25 mg tablet,extended 1 tab PO DAILY 01/15/22 05/28/22 Unknown History release 24 hr (Myrbetriq) omeprazole 20 mg capsule,delayed 1 cap PO BID@0630,1630 01/15/22 05/28/22 Unknown History release acetaminophen 500 mg tablet 1,000 mg PO TID 02/17/22 05/28/22 Unknown History bisacodyl 10 mg rectal suppository 10 mg [place] DAILY PRN Constipation 02/17/22 05/28/22 Unknown History (Dulcolax (bisacodyl)) dextrose 40 % oral gel (Glucose 10 g PO Q15M PRN BG <60 AND 02/17/22 05/28/22 Unknown History Gel) CONSCIOUS erythromycin 250 mg tablet 250 mg PO BID 02/17/22 05/28/22 Unknown History fluticasone 250 mcg-salmeterol 50 1 inh inhalation BID 02/17/22 05/28/22 Unknown History mcg/dose blistr powdr for inhalation (Advair Diskus) glucagon HCl 1 mg solution for 1 mg subcut Q20M PRN BG < 60 02/17/22 05/28/22 Unknown History injection (Glucagon (HCl) Emergency Kit) ipratropium 20 mcg-albuterol 100 2 puff inhalation Q6H PRN 02/17/22 05/28/22 Unknown History mcg/actuation mist for inhalation Shortness Of Breath (Combivent Respimat) magnesium hydroxide 400 mg/5 mL 30 ml PO DAILY PRN Constipation 02/17/22 05/28/22 Unknown History oral suspension (Milk of Magnesia) mirtazapine 7.5 mg tablet 7.5 mg PO BEDTIME 02/17/22 05/28/22 Unknown History ondansetron HCl 4 mg tablet 4 mg PO BID PRN Nausea 02/17/22 05/28/22 Unknown History ondansetron HCl 4 mg tablet 4 mg PO DAILY 02/17/22 05/28/22 Unknown History sertraline 50 mg tablet 75 mg PO DAILY 02/17/22 05/28/22 Unknown History sodium phosphates 19 gram-7 118 ml [place] BEDTIME PRN Constipation 02/17/22 05/28/22 Unknown History gram/118 mL enema (Fleet Enema) albuterol sulfate 90 mcg/actuation 2 puff inhalation Q4H PRN 05/28/22 05/28/22 Unknown History aerosol inhaler Shortness Of Breath alvudj-ierxqtmj-uvtqpdw 1 cap PO TIDWM 05/28/22 05/28/22 Unknown History 12,000-38,000-60,000 unit capsule,delayed rel (Creon) loperamide 2 mg capsule 2 mg PO Q3H PRN Loose Stool 05/28/22 05/28/22 Unknown History potassium chloride 20 mEq 20 meq PO BID 05/28/22 05/28/22 Unknown History tablet,extended release psyllium husk 3.4 gram/5.4 gram 1 tsp PO BID 05/28/22 05/28/22 Unknown History oral powder (Metamucil) Physical Exam Vital Signs: Vital Signs: Last Vital Signs Temp 97.2 F 05/29/22 07:27 Pulse 95 05/29/22 07:27 Resp 18 05/29/22 07:27 BP 114/86 05/29/22 07:27 Pulse Ox 96 05/29/22 07:27 O2 Del Method 05/29/22 07:27 O2 Flow Rate 2 05/29/22 07:27 Oxygen Flow Rate 2 05/28/22 14:16 BMI result Body Mass Index 39.5 Const: Other: Appears a little short of breath, has O2 by nasal cannula General: no acute distress Nutritional Appearance: obese Resp: Other: mildly short of breath Cardio: Rate: regular rate GI: Palpation (GI): Soft to palpation, not firm, nontender and no guarding Results Labs 05/29/22 05:32 05/28/22 15:44 Labs: Abnormal lab results 05/28/22 05/28/22 05/28/22 Range/Units 15:44 15:44 16:53 WBC 11.8 H (4.8-10.8) X10*3/uL RBC 4.17 L (4.20-5.50) X10*6/uL Hgb 10.4 L (12.0-16.0) g/dl Hct 32.6 L (37.0-47.0) % MCV 78.2 L (80.0-98.0) fL MCH 24.9 L (27.0-33.0) pg RDW 20.8 H (11.0-16.0) % Plt Count 789 H D (160-400) X10*3/uL Immature Gran % (Auto) 1.1 H (0.0-0.4) % Neut % (Auto) 88.2 H (45-73) % Lymph % (Auto) 5.1 L (20-40) % Lymph # (Auto) 0.6 L (1.2-4.9) X10*3/uL Abs Immat Gran (auto) 0.13 H (0.00-0.03) X10*3/uL Absolute Neuts (auto) 10.4 H (2.0-8.3) x10*3/uL Potassium 2.7 L (3.3-5.1) mmol/L Carbon Dioxide 21 L (22-29) mmol/L BUN 29 H (9-16) mg/dL POC Glucose (60-115) mg/dL Random Glucose 190 H (60-115) mg/dL Calcium 7.5 L (8.4-10.2) mg/dL TIBC 104 L (228-428) mcg/dL Alkaline Phosphatase 214 H (39-117) U/L Total Protein 4.7 L (6.5-8.0) g/dL Albumin 1.9 L (3.5-5.0) g/dL Urine Protein 100 (2+) H (Neg-Trace) mg/dL Urine Blood Large (3+) H (Negative) Ur Leukocyte Esterase Trace H (Negative) Urine RBC >20 H (0-2) /HPF Urine WBC 11-20 H (0-5) /HPF 05/28/22 05/29/22 05/29/22 Range/Units 22:06 05:32 08:08 WBC (4.8-10.8) X10*3/uL RBC (4.20-5.50) X10*6/uL Hgb 11.6 L (12.0-16.0) g/dl Hct 36.6 L (37.0-47.0) % MCV 79.0 L (80.0-98.0) fL MCH 25.1 L (27.0-33.0) pg RDW 21.8 H (11.0-16.0) % Plt Count 712 H (160-400) X10*3/uL Immature Gran % (Auto) 1.5 H (0.0-0.4) % Neut % (Auto) 82.3 H (45-73) % Lymph % (Auto) 8.6 L (20-40) % Lymph # (Auto) 0.8 L (1.2-4.9) X10*3/uL Abs Immat Gran (auto) 0.13 H (0.00-0.03) X10*3/uL Absolute Neuts (auto) (2.0-8.3) x10*3/uL Potassium (3.3-5.1) mmol/L Carbon Dioxide (22-29) mmol/L BUN (9-16) mg/dL POC Glucose 160 H 152 H (60-115) mg/dL Random Glucose (60-115) mg/dL Calcium (8.4-10.2) mg/dL TIBC (228-428) mcg/dL Alkaline Phosphatase (39-117) U/L Total Protein (6.5-8.0) g/dL Albumin (3.5-5.0) g/dL Urine Protein (Neg-Trace) mg/dL Urine Blood (Negative) Ur Leukocyte Esterase (Negative) Urine RBC (0-2) /HPF Urine WBC (0-5) /HPF Short CBC 05/28/22 05/29/22 Range/Units 15:44 05:32 WBC 11.8 H 9.0 (4.8-10.8) X10*3/uL Hgb 10.4 L 11.6 L (12.0-16.0) g/dl Hct 32.6 L 36.6 L (37.0-47.0) % Plt Count 789 H D 712 H (160-400) X10*3/uL BMP 05/28/22 15:44 Sodium 136 Potassium 2.7 L Chloride 99 Carbon Dioxide 21 L BUN 29 H Creatinine 1.20 Calcium 7.5 L Liver Function 05/28/22 Range/Units 15:44 Total Bilirubin 0.4 (0.0-1.0) mg/dL Direct Bilirubin 0.2 (0.0-0.5) mg/dL AST 7 (5-31) U/L ALT 6 (0-31) U/L Alkaline Phosphatase 214 H (39-117) U/L Albumin 1.9 L (3.5-5.0) g/dL Urine 05/28/22 Range/Units 16:53 Urine Color Dark Yellow Urine Appearance Turbid Urine pH 5.0 (5.0-9.0) Ur Specific [place] 1.025 (1.005-1.025) Urine Protein 100 (2+) H (Neg-Trace) mg/dL Urine Glucose (UA) Negative (Negative) mg/dL All other labs normal. Laboratory Results WBC 9.0 X10*3/uL (4.8-10.8) 05/29/22 05:32 RBC 4.63 X10*6/uL (4.20-5.50) 05/29/22 05:32 Hgb 11.6 g/dl (12.0-16.0) L 05/29/22 05:32 Hct 36.6 % (37.0-47.0) L 05/29/22 05:32 MCV 79.0 fL (80.0-98.0) L 05/29/22 05:32 MCH 25.1 pg (27.0-33.0) L 05/29/22 05:32 MCHC 31.7 g/dl (31.0-35.0) 05/29/22 05:32 RDW 21.8 % (11.0-16.0) H 05/29/22 05:32 Plt Count 712 X10*3/uL (160-400) H 05/29/22 05:32 MPV 9.6 fL (9.4-12.3) 05/29/22 05:32 Immature Gran % (Auto) 1.5 % (0.0-0.4) H 05/29/22 05:32 Neut % (Auto) 82.3 % (45-73) H 05/29/22 05:32 Lymph % (Auto) 8.6 % (20-40) L 05/29/22 05:32 [place] % (Auto) 6.9 % (2-11) 05/29/22 05:32 Eos % (Auto) 0.1 % (0-4) 05/29/22 05:32 Baso % (Auto) 0.6 % (0-2) 05/29/22 05:32 Lymph # (Auto) 0.8 X10*3/uL (1.2-4.9) L 05/29/22 05:32 [place] # (Auto) 0.6 X10*3/uL (0.1-1.2) 05/29/22 05:32 Eos # (Auto) 0.0 X10*3/uL (0.0-0.4) 05/29/22 05:32 Baso # (Auto) 0.1 X10*3/uL (0.0-0.2) 05/29/22 05:32 Abs Immat Gran (auto) 0.13 X10*3/uL (0.00-0.03) H 05/29/22 05:32 Absolute Neuts (auto) 7.4 x10*3/uL (2.0-8.3) 05/29/22 05:32 Absolute Nucleated RBC 0.000 X10*3/uL (0.0-0.012) 05/29/22 05:32 Nucleated RBC % (auto) 0.0 /100WBC (0.0-0.2) 05/29/22 05:32 Sodium 136 mmol/L (135-145) 05/28/22 15:44 Potassium 2.7 mmol/L (3.3-5.1) L 05/28/22 15:44 Chloride 99 mmol/L (96-108) 05/28/22 15:44 Carbon Dioxide 21 mmol/L (22-29) L 05/28/22 15:44 Anion Gap 19 (12-20) 05/28/22 15:44 BUN 29 mg/dL (9-16) H 05/28/22 15:44 Creatinine 1.20 mg/dL (0.5-1.4) 05/28/22 15:44 Estim Creat Clear Calc 51.9 05/28/22 15:44 Estimated GFR 44 05/28/22 15:44 POC Glucose 152 mg/dL (60-115) H 05/29/22 08:08 Random Glucose 190 mg/dL (60-115) H 05/28/22 15:44 Estimat Average Glucose 140 mg/dL 05/28/22 15:44 Hemoglobin A1c % 6.5 % 05/28/22 15:44 Lactic Acid 1.3 mmol/L (0.5-2.0) 05/28/22 15:44 Calcium 7.5 mg/dL (8.4-10.2) L 05/28/22 15:44 Magnesium 1.7 mg/dL (1.6-2.6) 05/28/22 15:44 Iron 34 mcg/dL (30-160) 05/28/22 15:44 TIBC 104 mcg/dL (228-428) L 05/28/22 15:44 % Saturation 33 % (15-50) 05/28/22 15:44 Unsat Iron Binding 70 ug/dL 05/28/22 15:44 Total Bilirubin 0.4 mg/dL (0.0-1.0) 05/28/22 15:44 Direct Bilirubin 0.2 mg/dL (0.0-0.5) 05/28/22 15:44 AST 7 U/L (5-31) 05/28/22 15:44 ALT 6 U/L (0-31) 05/28/22 15:44 Alkaline Phosphatase 214 U/L (39-117) H 05/28/22 15:44 Troponin I High Sens 7.5 ng/L (<3.5-17.0) 05/28/22 15:44 B-Natriuretic Peptide 79 pg/mL (<100) 05/28/22 15:44 Total Protein 4.7 g/dL (6.5-8.0) L 05/28/22 15:44 Albumin 1.9 g/dL (3.5-5.0) L 05/28/22 15:44 Lipase 21 U/L (8-78) 05/28/22 15:44 Urine Color Dark Yellow 05/28/22 16:53 Urine Appearance Turbid 05/28/22 16:53 Urine pH 5.0 (5.0-9.0) 05/28/22 16:53 Ur Specific [place] 1.025 (1.005-1.025) 05/28/22 16:53 Urine Protein 100 (2+) mg/dL (Neg-Trace) H 05/28/22 16:53 Urine Glucose (UA) Negative mg/dL (Negative) 05/28/22 16:53 Urine Ketones Trace mg/dL (Negative) 05/28/22 16:53 Urine Blood Large (3+) (Negative) H 05/28/22 16:53 Urine Nitrite Negative (Negative) 05/28/22 16:53 Ur Leukocyte Esterase Trace (Negative) H 05/28/22 16:53 Urine RBC >20 /HPF (0-2) H 05/28/22 16:53 Urine WBC 11-20 /HPF (0-5) H 05/28/22 16:53 Ur Squamous Epith Cells >20 /HPF (0-2) 05/28/22 16:53 Urine Bacteria Trace (None Seen) 05/28/22 16:53 Hyaline Casts >20 /LPF (0-2) 05/28/22 16:53 Influenza Type A (PCR) NEGATIVE (Negative) 05/28/22 15:44 Influenza Type B (PCR) NEGATIVE (Negative) 05/28/22 15:44 RSV RNA Qual (PCR) NEGATIVE (Negative) 05/28/22 15:44 SARS-CoV-2 RNA (RT-PCR) NEGATIVE (Negative) 05/28/22 15:44 Impressions Chest X-Ray 05/28/22 15:54 IMPRESSION: Small lung volumes. Abdomen/Pelvis CT 05/28/22 18:03 IMPRESSION: 1. The volume of the complex collection in the midabdomen around the pancreas has diminished since prior CAT scan 05/19/2022 but remains present. The air within this collection raises question of infection. 2. Free fluid in the abdomen and pelvis. 3. Bowel pattern suggests ileus. Fleischner guidelines were followed. Assessment and Plan (1) Pancreatic cyst: Status: Acute She came in because of abdominal pain and vomiting last night. Her CT scan shows a complex cyst lesion in the pancreas, likely sequela I of her previous ERCP pancreatitis.Her previous CT scan did show a similar cyst although this has decreased in size but there is note of some air in 1 area that may happen with an infection like an abscess. I will review her films with the radiologist the she will benefit from any IR intervention. Her exam is otherwise benign. I will follow along while she is in the hospital. She had been scheduled for HIDA scan by the hospitalist service the hospitalist. She does not have clinical signs of cystitis and her CAT scan is not suggestive of this either. The HIDA scan may be difficult to enter print and may show non visualization of the gallbladder because of her previous cholecystitis. I had a long discussion with her daughter Jessy. She had stated that her mother has had progressive decline in her overall health. She does not wish for her to undergo any surgical intervention anymore. She says that we can maximize any medical treatment. She says that her mother has already stated that she does not want any aggressive intervention including CPR nor surgery. I also have reviewed her CAT scan with the radiologist. The complex cyst around the pancreas is also seen on her previous CAT scan. There is the presence of some gets of air along with loculations so and expect his process cannot be ruled out. One option is to proceed with CT drainage and do cultures. However, at this point, the family has decided against proceeding with any further invasive intervention. Time Spent With Patient Time: Total time managing care of this patient today ____ minutes. Procedures Date of Service Date of Service: 05/29/22
[2022-05-29 08:39] LABS: Anion Gap 21 (12-20); Blood Urea Nitrogen 33 mg/dL (9-16); Calcium 7.6 mg/dL (8.4-10.2); Carbon Dioxide 18 mmol/L (22-29); Chloride 98 mmol/L (96-108); Creatinine Clr Calc Pharmacy 47.2; Estimated Glomerular Filt Rate 39; Glucose Random 147 mg/dL (60-115); Potassium 4.5 mmol/L (3.3-5.1); Sodium 132 mmol/L (135-145)
[2022-05-29 08:48] LABS: Thyroid Stimulating Hormone 1.81 uIU/mL (0.32-4.0)
[2022-05-29] MEDS: 0.9 % Sodium Chloride Flush 3 ML SYRINGE IVFLUSH ×3 (09:14→20:32)
[2022-05-29] MEDS: Apixaban 5 MG TABLET PO ×2 (09:17→20:27)
[2022-05-29] MEDS: Potassium Chloride ER 20 MEQ TAB.ER.PRT PO ×2 (09:17→20:27)
[2022-05-29] MEDS: Sertraline HCL 25 MG TABLET 75 MG PO (09:17)
--- NOTE | 2022-05-29 10:34 | P.PNIM_ITS ---
Subjective Subjective Date of Service: 05/29/22 Interval History: cc: n/v interval history:denies n/v Physical Exam Vital Signs: Vital Signs: Last Vital Signs Temp 97.2 F 05/29/22 07:27 Pulse 95 05/29/22 07:27 Resp 18 05/29/22 07:27 BP 114/86 05/29/22 07:27 Pulse Ox 96 05/29/22 07:27 O2 Del Method 05/29/22 07:27 O2 Flow Rate 2 05/29/22 07:27 Oxygen Flow Rate 2 05/28/22 14:16 BMI result Body Mass Index 39.5 General: lethargic, ill appearing Resp: diminished bilateral, no accessory muscles used CVS: S1,S2,RRR GI: soft, non tender, non distended Objective Data Active Medications Acetaminophen (Acetaminophen 325 Mg Tablet) 650 mg PO Q6H PRN PRN Reason: Pain, Mild (Pain Scale 1-3) Lipase/Protease/Amylase (Lipase/Prot/Amylase 24/76/120k 1 Cap Capsule.Dr) 1 cap PO TIDWM [facility] Apixaban (Apixaban 5 Mg Tablet) 5 mg PO BID [facility] Last Admin: 05/29/22 09:17 Dose: 5 mg Documented By: ORVILLE Dextrose (Dextrose 50 % 25 Gm/50 Ml Syringe) 25 gm IVPUSH Q15M PRN; Protocol PRN Reason: per Hypoglycemia Standing Ord. Glucose (Glucose Gel 15 Gm Gel..Gram.) 15 gm PO Q15M PRN; Protocol PRN Reason: per Hypoglycemia Standing Ord. Piperacillin Sod/Tazobactam (Sod 4.5 gm/ Sodium Chloride) 100 mls @ 200 mls/hr IV Q6H [facility] Last Infusion: 05/29/22 09:44 Dose: 0 mls/hr Documented By: ORVILLE Insulin Human Lispro (Insulin Lispro 100 Unit/Ml 3 Ml Vial) 0 unit SUBCUT QIDACHS [facility]; Protocol Last Admin: 05/29/22 08:48 Dose: Not Given Documented By: ORVILLE Non-Admin Reason: No Insulin Coverage Levothyroxine Sodium (Levothyroxine Sodium 75 Mcg Tablet) 75 mcg PO DAILY@0600 [facility] Melatonin (Melatonin 3 Mg Tablet) 6 mg PO BEDTIME PRN PRN Reason: Insomnia Mirtazapine (Mirtazapine 7.5 Mg Tablet) 7.5 mg PO BEDTIME [facility] Omeprazole (Omeprazole 20 Mg Capsule.Dr) 20 mg PO BID@0630,1630 [facility] Ondansetron HCl (Ondansetron Hcl 4 Mg/2 Ml Vial) 4 mg IVPUSH Q8H PRN PRN Reason: Nausea and Vomiting Last Admin: 05/28/22 22:23 Dose: 4 mg Documented By: MARIELA Pharmacy Consult (Consult Rx Perform Med Rec) 1 each MISCELLANE ONCE PRN PRN Reason: Consult order Potassium Chloride (Potassium Chloride Er 20 Meq Tab.Er.Prt) 20 meq PO BID [facility] Last Admin: 05/29/22 09:17 Dose: 20 meq Documented By: ORVILLE Sertraline HCl (Sertraline Hcl 25 Mg Tablet) 75 mg PO DAILY [facility] Last Admin: 05/29/22 09:17 Dose: 75 mg Documented By: ORVILLE Sodium Chloride (0.9 % Sodium Chloride Flush 3 Ml Syringe) 3 ml IVFLUSH QSHIFT [facility] Last Admin: 05/29/22 09:14 Dose: 3 ml Documented By: ORVILLE Labs 05/29/22 05:32 05/29/22 08:01 Labs: Laboratory Results - last 24 hr 05/28/22 05/28/22 05/28/22 15:44 15:44 15:44 MCV 78.2 L MCH 24.9 L MCHC 31.9 RDW 20.8 H Plt Count 789 H D MPV 9.4 Immature Gran % (Auto) 1.1 H Neut % (Auto) 88.2 H Lymph % (Auto) 5.1 L Gage % (Auto) 5.2 Eos % (Auto) 0.0 Baso % (Auto) 0.4 Lymph # (Auto) 0.6 L Gage # (Auto) 0.6 Eos # (Auto) 0.0 Baso # (Auto) 0.1 Abs Immat Gran (auto) 0.13 H Absolute Neuts (auto) 10.4 H Absolute Nucleated RBC 0.000 Nucleated RBC % (auto) 0.0 Anion Gap Estim Creat Clear Calc Estimated GFR POC Glucose Random Glucose Estimat Average Glucose Hemoglobin A1c % Lactic Acid 1.3 Calcium Magnesium Iron TIBC % Saturation Unsat Iron Binding Total Bilirubin Direct Bilirubin AST ALT Alkaline Phosphatase Troponin I High Sens B-Natriuretic Peptide Total Protein Albumin Lipase TSH Urine Color Urine Appearance Urine pH Ur Specific [place] Urine Protein Urine Glucose (UA) Urine Ketones Urine Blood Urine Nitrite Ur Leukocyte Esterase Urine RBC Urine WBC Ur Squamous Epith Cells Urine Bacteria Hyaline Casts Influenza Type A (PCR) NEGATIVE Influenza Type B (PCR) NEGATIVE RSV RNA Qual (PCR) NEGATIVE SARS-CoV-2 RNA (RT-PCR) NEGATIVE 05/28/22 05/28/22 05/28/22 15:44 15:44 15:44 MCV MCH MCHC RDW Plt Count MPV Immature Gran % (Auto) Neut % (Auto) Lymph % (Auto) Gage % (Auto) Eos % (Auto) Baso % (Auto) Lymph # (Auto) Gage # (Auto) Eos # (Auto) Baso # (Auto) Abs Immat Gran (auto) Absolute Neuts (auto) Absolute Nucleated RBC Nucleated RBC % (auto) Anion Gap 19 Estim Creat Clear Calc 51.9 Estimated GFR 44 POC Glucose Random Glucose 190 H Estimat Average Glucose Hemoglobin A1c % Lactic Acid Calcium 7.5 L Magnesium 1.7 Iron 34 TIBC 104 L % Saturation 33 Unsat Iron Binding 70 Total Bilirubin 0.4 Direct Bilirubin 0.2 AST 7 ALT 6 Alkaline Phosphatase 214 H Troponin I High Sens 7.5 B-Natriuretic Peptide 79 Total Protein 4.7 L Albumin 1.9 L Lipase 21 TSH Urine Color Urine Appearance Urine pH Ur Specific [place] Urine Protein Urine Glucose (UA) Urine Ketones Urine Blood Urine Nitrite Ur Leukocyte Esterase Urine RBC Urine WBC Ur Squamous Epith Cells Urine Bacteria Hyaline Casts Influenza Type A (PCR) Influenza Type B (PCR) RSV RNA Qual (PCR) SARS-CoV-2 RNA (RT-PCR) 05/28/22 05/28/22 05/28/22 15:44 16:53 22:06 MCV MCH MCHC RDW Plt Count MPV Immature Gran % (Auto) Neut % (Auto) Lymph % (Auto) Gage % (Auto) Eos % (Auto) Baso % (Auto) Lymph # (Auto) Gage # (Auto) Eos # (Auto) Baso # (Auto) Abs Immat Gran (auto) Absolute Neuts (auto) Absolute Nucleated RBC Nucleated RBC % (auto) Anion Gap Estim Creat Clear Calc Estimated GFR POC Glucose 160 H Random Glucose Estimat Average Glucose 140 Hemoglobin A1c % 6.5 Lactic Acid Calcium Magnesium Iron TIBC % Saturation Unsat Iron Binding Total Bilirubin Direct Bilirubin AST ALT Alkaline Phosphatase Troponin I High Sens B-Natriuretic Peptide Total Protein Albumin Lipase TSH Urine Color Dark Yellow Urine Appearance Turbid Urine pH 5.0 Ur Specific [place] 1.025 Urine Protein 100 (2+) H Urine Glucose (UA) Negative Urine Ketones Trace Urine Blood Large (3+) H Urine Nitrite Negative Ur Leukocyte Esterase Trace H Urine RBC >20 H Urine WBC 11-20 H Ur Squamous Epith Cells >20 Urine Bacteria Trace Hyaline Casts >20 Influenza Type A (PCR) Influenza Type B (PCR) RSV RNA Qual (PCR) SARS-CoV-2 RNA (RT-PCR) 05/29/22 05/29/22 05/29/22 05:32 08:01 08:08 MCV 79.0 L MCH 25.1 L MCHC 31.7 RDW 21.8 H Plt Count 712 H MPV 9.6 Immature Gran % (Auto) 1.5 H Neut % (Auto) 82.3 H Lymph % (Auto) 8.6 L Gage % (Auto) 6.9 Eos % (Auto) 0.1 Baso % (Auto) 0.6 Lymph # (Auto) 0.8 L Gage # (Auto) 0.6 Eos # (Auto) 0.0 Baso # (Auto) 0.1 Abs Immat Gran (auto) 0.13 H Absolute Neuts (auto) 7.4 Absolute Nucleated RBC 0.000 Nucleated RBC % (auto) 0.0 Anion Gap 21 H Estim Creat Clear Calc 47.2 Estimated GFR 39 POC Glucose 152 H Random Glucose 147 H Estimat Average Glucose Hemoglobin A1c % Lactic Acid Calcium 7.6 L Magnesium Iron TIBC % Saturation Unsat Iron Binding Total Bilirubin Direct Bilirubin AST ALT Alkaline Phosphatase Troponin I High Sens B-Natriuretic Peptide Total Protein Albumin Lipase TSH 1.81 Urine Color Urine Appearance Urine pH Ur Specific [place] Urine Protein Urine Glucose (UA) Urine Ketones Urine Blood Urine Nitrite Ur Leukocyte Esterase Urine RBC Urine WBC Ur Squamous Epith Cells Urine Bacteria Hyaline Casts Influenza Type A (PCR) Influenza Type B (PCR) RSV RNA Qual (PCR) SARS-CoV-2 RNA (RT-PCR) Assessment and Plan (1) Pancreatic cyst: Status: Acute Plan 76F with pertinent history of PE on Eliquis, obesity, recent cholangitis s/p ERCP with ERCP pancreatitis, mood disorder, gastroesophageal reflux disease, urinary incontinence, hypothyroidism, COPD on baseline 2 L supplemental oxygen who presented to the emergency department evaluation of abdominal pain/nausea and vomiting. Abdominal pain/nausea and vomiting acute exacerbation of pancreatitis not fully recovered since 01/2023, possibly complicated by infection of cyst doubt cholecystitis, will dc HIDA surgery following advance diet as tolerated empiric zosyn follow up cultures continue creon Acute metabolic encephalopathy due to acute illness, monitor history of pe eliquis mood disorder remeron, zoloft obesity wegiht loss hypothyroid synthroid chronic hypoxic respiratory failure due to copd on 2L home o2 stable bronchodilators as needed DM not on meds at home [place], monitor pocs, likely oral or diet control on discharge chronic microcytic anemia, thrombocytosis due to chronic inflammation DVT prophylaxis:? Milad Full code reason for continued hospitalization:iv abx for possible pancreatic infection Time Spent With Patient Time: Total time managing care of this patient today ____ minutes. Quality Stroke Does the patient have a stroke diagnosis?: No VTE Prior VTE?: No VTE Risk Level:: Medical - moderate - high VTE Device Contraindication: Treatment Not Indicated VTE Drug Contraindication: N/A - Med Ordered
[2022-05-29 11:33] LABS: Glucose, Whole Blood 129 mg/dL (60-115)
--- NOTE | 2022-05-29 12:06 | MHC.CM.PN ---
CM ATTEMPTED TO MEET W/PT HOWEVER PT UNABLE TO ANSWER QUESTIONS AND REQUESTING CM CONTACT DTR/HCP JERICA, CM CONTACTED JERICA AT NUMBER ON FILE TO DELIVER IMM AND COPY TO BE LEFT IN DRAWER OF BEDSIDE TABLE PER HER REQUEST. JERICA REPORTS PT IS STILL IN STR AT [facility] AND WANTS TO GO HOME HOWEVER IS NOT ABLE TO AT THIS TIME D/T LIMITED MOBILITY, JERICA WOULD LIKE PT TO RETURN TO [facility] UPON D/C. JERICA VERIFIES PT IS NOT VACCINATED AGAINST COVID, HCP AND MOLST ON FILE AND PCP IS NEGIN DURON. D/C PLAN: RETURN TO [facility] FOR STR VIA BLS TRANSPORT
[2022-05-29 12:32] VITALS: BP 112/70; PULSE 102; RESP 18; TEMP 37; O2SAT 98
[2022-05-29] MEDS: HYDROmorphone HCl 0.5 MG/0.5 ML SYRINGE IVPUSH ×2 (12:55→16:47)
[2022-05-29] MEDS: Dextrose 5 % and Lactated Ring 1,000 ML 80 ML IVCONT (12:58)
[2022-05-29 15:38] VITALS: BP 124/75; PULSE 104; RESP 20; TEMP 36.3; O2SAT 100
[2022-05-29 16:42] LABS: Glucose, Whole Blood 178 mg/dL (60-115)
[2022-05-29] MEDS: Insulin Lispro 100 UNIT/ML 3 ML VIAL SUBCUT (16:45)
[2022-05-29] MEDS: Omeprazole 20 MG CAPSULE.DR PO (16:45)
[2022-05-29] MEDS: Lipase/Prot/Amylase 24/76/120K 1 CAP CAPSULE.DR PO (16:45)
[2022-05-29] MEDS: ondansetron HCL 4 MG/2 ML VIAL IVPUSH (16:46)
[2022-05-29] MEDS: Acetaminophen 325 MG TABLET 650 MG PO (16:46)
--- NOTE | 2022-05-29 18:18 | PC.NURSE ---
Pt is alert and oriented to self and sometimes her children. Poor apetite noted throughout the day with Intermittent nausea. Moaning and graoning. PRN Zofran given as well Dilaudid 0.5mg and Tylenol with some effect. Pt did not void much durng the first 5-6 hrs of the am. Pt started on D5LR at 80cc/hr, and was able to void after that. Family here to visit. They requested a meeting. notified .
[2022-05-29 19:31] VITALS: BP 104/62; PULSE 92; RESP 14; TEMP 35.9; O2SAT 98
[2022-05-29] MEDS: Mirtazapine 7.5 MG TABLET PO (20:27)
[2022-05-29 20:33] LABS: Glucose, Whole Blood 149 mg/dL (60-115)
--- NOTE | 2022-05-29 22:43 | PC.NURSE ---
patient is incontinent, small urine output, bladder scanned for 90 ml at this time.
[2022-05-29 23:31] VITALS: BP 108/62; PULSE 92; RESP 18; TEMP 36; O2SAT 98
[2022-05-30] MEDS: ondansetron HCL 4 MG/2 ML VIAL IVPUSH ×3 (01:40→18:03)
[2022-05-30] MEDS: Dextrose 5 % and Lactated Ring 1,000 ML 80 ML IVCONT (01:45)
[2022-05-30] MEDS: Piperacillin Sodium/Tazobactam 4.5 GM in 0.9 % Sodium Chloride 100 ML IV ×4 (01:54→20:21)
[2022-05-30] MEDS: HYDROmorphone HCl 0.5 MG/0.5 ML SYRINGE IVPUSH ×5 (02:00→23:53)
[2022-05-30] MEDS: Omeprazole 20 MG CAPSULE.DR PO (06:20)
[2022-05-30] MEDS: Levothyroxine Sodium 75 MCG TABLET PO (06:20)
[2022-05-30 07:01] LABS: Hematocrit 31.9 % (37.0-47.0); Hemoglobin 10.1 g/dl (12.0-16.0); Mean Corpuscular HGB Conc 31.7 g/dl (31.0-35.0); Mean Corpuscular Hemoglobin 25.3 pg (27.0-33.0); Mean Corpuscular Volume 79.8 fL (80.0-98.0); Mean Platelet Volume 9.4 fL (9.4-12.3); Platelet Count 775 X10*3/uL (160-400); Red Cell Distribution Width 21.7 % (11.0-16.0); White Blood Count 11.5 X10*3/uL (4.8-10.8)
[2022-05-30 07:09] LABS: Alanine Aminotransferase 7 U/L (0-31); Alkaline Phosphatase 216 U/L (39-117); Anion Gap 20 (12-20); Aspartate Amino Transferase 9 U/L (5-31); Bilirubin Direct 0.2 mg/dL (0.0-0.5); Bilirubin Total 0.5 mg/dL (0.0-1.0); Blood Urea Nitrogen 39 mg/dL (9-16); Carbon Dioxide 18 mmol/L (22-29); Chloride 98 mmol/L (96-108); Creatinine Clr Calc Pharmacy 35.4; Estimated Glomerular Filt Rate 28; Glucose Fasting 162 mg/dL (60-99); Potassium 4.1 mmol/L (3.3-5.1); Sodium 132 mmol/L (135-145)
[2022-05-30 07:13] VITALS: BP 114/54; PULSE 91; RESP 18; TEMP 36.2; O2SAT 94
[2022-05-30] MEDS: 0.9 % Sodium Chloride Flush 3 ML SYRINGE IVFLUSH ×2 (07:51→14:53)
[2022-05-30 08:05] LABS: Glucose, Whole Blood 171 mg/dL (60-115)
--- NOTE | 2022-05-30 08:41 | HO.PM.IMPN ---
Subjective Subjective Date of Service: 05/30/22 Interval History: cc: n/v interval history: n/v Physical Exam Vital Signs: Vital Signs: Last Vital Signs Temp 97.2 F 05/30/22 07:13 Pulse 91 05/30/22 07:13 Resp 18 05/30/22 07:13 BP 114/54 L 05/30/22 07:13 Pulse Ox 94 05/30/22 07:13 O2 Del Method 05/30/22 07:13 O2 Flow Rate 2.5 05/30/22 07:13 Oxygen Flow Rate 2 05/28/22 14:16 BMI result Body Mass Index 39.5 General: lethargic, ill appearing Resp: diminished bilateral, no accessory muscles used CVS: S1,S2,RRR GI: soft, non tender, non distended Objective Data Active Medications Acetaminophen (Acetaminophen 325 Mg Tablet) 650 mg PO Q6H PRN PRN Reason: Pain, Mild (Pain Scale 1-3) Last Admin: 05/29/22 16:46 Dose: 650 mg Documented By: ORVILLE Lipase/Protease/Amylase (Lipase/Prot/Amylase 24/76/120k 1 Cap Capsule.Dr) 1 cap PO TIDWM [facility] Last Admin: 05/29/22 16:45 Dose: 1 cap Documented By: ORVILLE Apixaban (Apixaban 5 Mg Tablet) 5 mg PO BID [facility] Last Admin: 05/29/22 20:27 Dose: 5 mg Documented By: MARIELA Dextrose (Dextrose 50 % 25 Gm/50 Ml Syringe) 25 gm IVPUSH Q15M PRN; Protocol PRN Reason: per Hypoglycemia Standing Ord. Glucose (Glucose Gel 15 Gm Gel..Gram.) 15 gm PO Q15M PRN; Protocol PRN Reason: per Hypoglycemia Standing Ord. Hydromorphone HCl (Hydromorphone Hcl 0.5 Mg/0.5 Ml Syringe) 0.5 mg IVPUSH Q4H PRN; Protocol PRN Reason: moderate pain Last Admin: 05/30/22 02:00 Dose: 0.5 mg Documented By: MARIELA Comments: Piperacillin Sod/Tazobactam (Sod 4.5 gm/ Sodium Chloride) 100 mls @ 200 mls/hr IV Q6H [facility] Last Admin: 05/30/22 07:50 Dose: 100 mls/hr Documented By: ANEESH Dextrose/Lactated Ringer's (D5lr) 1,000 mls @ 100 mls/hr IVCONT .Q10H [facility] Last Admin: 05/30/22 01:45 Dose: 80 mls/hr Documented By: MARIELA Insulin Human Lispro (Insulin Lispro 100 Unit/Ml 3 Ml Vial) 0 unit SUBCUT QIDACHS [facility]; Protocol Last Admin: 05/29/22 21:01 Dose: Not Given Documented By: MARIELA Non-Admin Reason: No Insulin Coverage Levothyroxine Sodium (Levothyroxine Sodium 75 Mcg Tablet) 75 mcg PO DAILY@0600 [facility] Last Admin: 05/30/22 06:20 Dose: 75 mcg Documented By: MARIELA Melatonin (Melatonin 3 Mg Tablet) 6 mg PO BEDTIME PRN PRN Reason: Insomnia Mirtazapine (Mirtazapine 7.5 Mg Tablet) 7.5 mg PO BEDTIME [facility] Last Admin: 05/29/22 20:27 Dose: 7.5 mg Documented By: MARIELA Omeprazole (Omeprazole 20 Mg Capsule.Dr) 20 mg PO BID@0630,1630 [facility] Last Admin: 05/30/22 06:20 Dose: 20 mg Documented By: MARIELA Ondansetron HCl (Ondansetron Hcl 4 Mg/2 Ml Vial) 4 mg IVPUSH Q8H PRN PRN Reason: Nausea and Vomiting Last Admin: 05/30/22 01:40 Dose: 4 mg Documented By: MARIELA Pharmacy Consult (Consult Rx Perform Med Rec) 1 each MISCELLANE ONCE PRN PRN Reason: Consult order Potassium Chloride (Potassium Chloride Er 20 Meq Tab.Er.Prt) 20 meq PO BID [facility] Last Admin: 05/29/22 20:27 Dose: 20 meq Documented By: MARIELA Sertraline HCl (Sertraline Hcl 25 Mg Tablet) 75 mg PO DAILY [facility] Last Admin: 05/29/22 09:17 Dose: 75 mg Documented By: ORVILLE Sodium Chloride (0.9 % Sodium Chloride Flush 3 Ml Syringe) 3 ml IVFLUSH QSHIFT [facility] Last Admin: 05/30/22 07:51 Dose: 3 ml Documented By: ANEESH Labs 05/30/22 06:35 05/30/22 06:35 Labs: Laboratory Results - last 24 hr 05/29/22 05/29/22 05/29/22 08:01 11:08 16:21 MCV MCH MCHC RDW Plt Count MPV Absolute Nucleated RBC Nucleated RBC % (auto) Anion Gap Estim Creat Clear Calc Estimated GFR POC Glucose 129 H 178 H Fasting Glucose Calcium Total Bilirubin Direct Bilirubin AST ALT Alkaline Phosphatase Total Protein Albumin TSH 1.81 05/29/22 05/30/22 05/30/22 20:28 06:35 06:35 MCV 79.8 L MCH 25.3 L MCHC 31.7 RDW 21.7 H Plt Count 775 H MPV 9.4 Absolute Nucleated RBC 0.000 Nucleated RBC % (auto) 0.0 Anion Gap 20 Estim Creat Clear Calc 35.4 Estimated GFR 28 POC Glucose 149 H Fasting Glucose 162 H Calcium 8.0 L Total Bilirubin 0.5 Direct Bilirubin 0.2 AST 9 ALT 7 Alkaline Phosphatase 216 H Total Protein 5.0 L Albumin 2.0 L TSH 05/30/22 07:17 MCV MCH MCHC RDW Plt Count MPV Absolute Nucleated RBC Nucleated RBC % (auto) Anion Gap Estim Creat Clear Calc Estimated GFR POC Glucose 171 H Fasting Glucose Calcium Total Bilirubin Direct Bilirubin AST ALT Alkaline Phosphatase Total Protein Albumin TSH Microbiology Microbiology Results: Microbiology 05/28/22 15:44 Blood Culture - Preliminary Blood - Venous No growth after 24 hours. 05/28/22 15:20 Blood Culture - Preliminary Blood - Venous No growth after 24 hours. 05/28/22 Unknown Urine Culture - Preliminary Urine clean catch - Urine seymour top Culture too young to evaluate. Assessment and Plan (1) Pancreatic cyst: Status: Acute Plan 76F with pertinent history of PE on Eliquis, obesity, recent cholangitis s/p ERCP with ERCP pancreatitis, mood disorder, gastroesophageal reflux disease, urinary incontinence, hypothyroidism, COPD on baseline 2 L supplemental oxygen who presented to the emergency department evaluation of abdominal pain/nausea and vomiting. Abdominal pain/nausea and vomiting acute exacerbation of pancreatitis not fully recovered since 01/2023, possibly complicated by infection of cyst doubt cholecystitis surgery appreciated advance diet as tolerated empiric zosyn follow up cultures - no growth so far continue creon Acute metabolic encephalopathy due to acute illness, donnie DONNIE with metabolic acidosis increase fluids to d5lr 100cc/hr history of pe eliquis mood disorder remeron, zoloft obesity hypothyroid synthroid chronic hypoxic respiratory failure due to copd on 2L home o2 stable bronchodilators as needed DM not on meds at home [place], monitor pocs, likely oral or diet control on discharge chronic microcytic anemia, thrombocytosis due to chronic inflammation DVT prophylaxis:? Milad DNR/DNI - discussed with HCP, daughter, Jessy, continue conservative therapy for now (IV meds, labs), would not want invasive procedures such as cyst drainage. reason for continued hospitalization:iv abx for possible pancreatic infection Time Spent With Patient Time: Total time managing care of this patient today ____ minutes. Quality Stroke Does the patient have a stroke diagnosis?: No VTE Prior VTE?: No VTE Risk Level:: Medical - moderate - high VTE Device Contraindication: Treatment Not Indicated VTE Drug Contraindication: N/A - Med Ordered
[2022-05-30] MEDS: Apixaban 5 MG TABLET PO ×2 (09:12→20:12)
[2022-05-30] MEDS: Sertraline HCL 25 MG TABLET 75 MG PO (09:13)
--- NOTE | 2022-05-30 10:37 | MHC.CM.PN ---
EMR REVIEWED, PT CONT'S ON IV ABX AND IV PAIN MEDICATION, CR ELEVATED AND SODIUM REMAINS LOW, NO PLAN FOR D/C AT THIS TIME, ANTIC PT WILL RETURN TO [facility] ON STR ONCE MEDICALLY CLEARED, CM WILL CONT TO FOLLOW D/C NEEDS.
[2022-05-30 11:24] LABS: Glucose, Whole Blood 189 mg/dL (60-115)
[2022-05-30] MEDS: Dextrose 5 % and Lactated Ring 1,000 ML 100 ML IVCONT ×2 (12:03→23:54)
[2022-05-30 14:54] VITALS: BP 112/68; PULSE 87; RESP 18; TEMP 36.2; O2SAT 97
[2022-05-30 16:43] LABS: Glucose, Whole Blood 203 mg/dL (60-115)
[2022-05-30] MEDS: Insulin Lispro 100 UNIT/ML 3 ML VIAL SUBCUT ×2 (16:51→20:12)
--- NOTE | 2022-05-30 17:15 | P.PNGS_ITS ---
Subjective Subjective Date of Service: 05/30/22 Interval history: no changes poor oral intake UO now marginal Physical Exam Vital Signs: Vital Signs: Last Vital Signs Temp 97.2 F 05/30/22 14:54 Pulse 87 05/30/22 14:54 Resp 18 05/30/22 14:54 BP 112/68 05/30/22 14:54 Pulse Ox 97 05/30/22 14:54 O2 Del Method 05/30/22 14:54 O2 Flow Rate 2.5 05/30/22 14:54 Oxygen Flow Rate 2 05/28/22 14:16 BMI result Body Mass Index 39.5 Const: Other: moaning Resp: Other: some shortness of breath Cardio: Rhythm: regular rhythm GI: Other: soft, sone tenderness diffusely Objective Data Active Medications Acetaminophen (Acetaminophen 325 Mg Tablet) 650 mg PO Q6H PRN PRN Reason: Pain, Mild (Pain Scale 1-3) Last Admin: 05/29/22 16:46 Dose: 650 mg Documented By: ORVILLE Lipase/Protease/Amylase (Lipase/Prot/Amylase 24/76/120k 1 Cap Capsule.Dr) 1 cap PO TIDWM [facility] Last Admin: 05/30/22 16:52 Dose: Not Given Documented By: ANEESH Non-Admin Reason: Patient Refused Apixaban (Apixaban 5 Mg Tablet) 5 mg PO BID [facility] Last Admin: 05/30/22 09:12 Dose: 5 mg Documented By: ANEESH Dextrose (Dextrose 50 % 25 Gm/50 Ml Syringe) 25 gm IVPUSH Q15M PRN; Protocol PRN Reason: per Hypoglycemia Standing Ord. Glucose (Glucose Gel 15 Gm Gel..Gram.) 15 gm PO Q15M PRN; Protocol PRN Reason: per Hypoglycemia Standing Ord. Hydromorphone HCl (Hydromorphone Hcl 0.5 Mg/0.5 Ml Syringe) 0.5 mg IVPUSH Q4H PRN; Protocol PRN Reason: moderate pain Last Admin: 05/30/22 13:45 Dose: 0.5 mg Documented By: ANEESH Piperacillin Sod/Tazobactam (Sod 4.5 gm/ Sodium Chloride) 100 mls @ 200 mls/hr IV Q6H [facility] Last Infusion: 05/30/22 15:52 Dose: 0 mls/hr Documented By: ANEESH Dextrose/Lactated Ringer's (D5lr) 1,000 mls @ 100 mls/hr IVCONT .Q10H [facility] Last Admin: 05/30/22 12:03 Dose: 100 mls/hr Documented By: ANEESH Insulin Human Lispro (Insulin Lispro 100 Unit/Ml 3 Ml Vial) 0 unit SUBCUT QIDACHS [facility]; Protocol Last Admin: 05/30/22 16:51 Dose: 4 unit Documented By: ANEESH Levothyroxine Sodium (Levothyroxine Sodium 75 Mcg Tablet) 75 mcg PO DAILY@0600 [facility] Last Admin: 05/30/22 06:20 Dose: 75 mcg Documented By: MARIELA Melatonin (Melatonin 3 Mg Tablet) 6 mg PO BEDTIME PRN PRN Reason: Insomnia Mirtazapine (Mirtazapine 7.5 Mg Tablet) 7.5 mg PO BEDTIME [facility] Last Admin: 05/29/22 20:27 Dose: 7.5 mg Documented By: MARIELA Omeprazole (Omeprazole 20 Mg Capsule.Dr) 20 mg PO BID@0630,1630 [facility] Last Admin: 05/30/22 16:51 Dose: Not Given Documented By: ANEESH Non-Admin Reason: Patient Refused Ondansetron HCl (Ondansetron Hcl 4 Mg/2 Ml Vial) 4 mg IVPUSH Q8H PRN PRN Reason: Nausea and Vomiting Last Admin: 05/30/22 09:29 Dose: 4 mg Documented By: ANEESH Pharmacy Consult (Consult Rx Perform Med Rec) 1 each MISCELLANE ONCE PRN PRN Reason: Consult order Potassium Chloride (Potassium Chloride Er 20 Meq Tab.Er.Prt) 20 meq PO BID [facility] Last Admin: 05/30/22 09:18 Dose: Not Given Documented By: ANEESH Non-Admin Reason: nauseous Sertraline HCl (Sertraline Hcl 25 Mg Tablet) 75 mg PO DAILY [facility] Last Admin: 05/30/22 09:13 Dose: 75 mg Documented By: ANEESH Sodium Chloride (0.9 % Sodium Chloride Flush 3 Ml Syringe) 3 ml IVFLUSH QSHIFT [facility] Last Admin: 05/30/22 14:53 Dose: 3 ml Documented By: ANEESH Labs 05/30/22 06:35 05/30/22 06:35 Labs: Laboratory Results - last 24 hr 05/29/22 05/30/22 05/30/22 20:28 06:35 06:35 MCV 79.8 L MCH 25.3 L MCHC 31.7 RDW 21.7 H Plt Count 775 H MPV 9.4 Absolute Nucleated RBC 0.000 Nucleated RBC % (auto) 0.0 Anion Gap 20 Estim Creat Clear Calc 35.4 Estimated GFR 28 POC Glucose 149 H Fasting Glucose 162 H Calcium 8.0 L Total Bilirubin 0.5 Direct Bilirubin 0.2 AST 9 ALT 7 Alkaline Phosphatase 216 H Total Protein 5.0 L Albumin 2.0 L 05/30/22 05/30/22 05/30/22 07:17 11:11 16:39 MCV MCH MCHC RDW Plt Count MPV Absolute Nucleated RBC Nucleated RBC % (auto) Anion Gap Estim Creat Clear Calc Estimated GFR POC Glucose 171 H 189 H 203 H Fasting Glucose Calcium Total Bilirubin Direct Bilirubin AST ALT Alkaline Phosphatase Total Protein Albumin Microbiology Microbiology Results: Microbiology 05/28/22 Unknown Urine Culture - Final Urine clean catch - Urine seymour top 05/28/22 15:44 Blood Culture - Preliminary Blood - Venous No growth after 24 hours. 05/28/22 15:20 Blood Culture - Preliminary Blood - Venous No growth after 24 hours. Procedures Date of Service Date of Service: 05/30/22 Progress Note: A&P Assessment and plan (1) Pancreatic cyst: Status: Acute Assessment and Plan: cyst may be infected pt with multiple medical issues multiple discussions with family, incl daughter Jessy, and son no further invasive measures stated goal is to keep her comfortable DNR/DNI in effect Time Spent With Patient Time: Total time managing care of this patient today ____ minutes. Quality Stroke Does the patient have a stroke diagnosis?: No VTE Prior VTE?: No VTE Risk Level:: Medical - moderate - high VTE Device Contraindication: Treatment Not Indicated VTE Drug Contraindication: N/A - Med Ordered
[2022-05-30 18:56] VITALS: BP 92/59; PULSE 87; RESP 18; TEMP 36.7; O2SAT 100
[2022-05-30 19:28] LABS: Glucose, Whole Blood 180 mg/dL (60-115)
[2022-05-30] MEDS: Potassium Chloride ER 20 MEQ TAB.ER.PRT PO (20:12)
[2022-05-30] MEDS: Mirtazapine 7.5 MG TABLET PO (20:12)
[2022-05-31] MEDS: Piperacillin Sodium/Tazobactam 4.5 GM in 0.9 % Sodium Chloride 100 ML IV ×2 (02:10→08:32)
[2022-05-31 03:29] VITALS: BP 112/64; PULSE 81; RESP 18; TEMP 36.1; O2SAT 93
[2022-05-31] MEDS: HYDROmorphone HCl 0.5 MG/0.5 ML SYRINGE IVPUSH ×3 (03:51→19:53)
[2022-05-31] MEDS: ondansetron HCL 4 MG/2 ML VIAL IVPUSH (03:52)
--- NOTE | 2022-05-31 06:09 | PC.NURSE ---
Assumed are of pt. approx. 1845. Pt. lethargic, arousable to name; does not consistently follow commands. Recvd PRN zofran and hydromorphone for behavioral indicators of pain and nausea with positive effect. Pt. expectorating mucoid, yellow to clear secretions. Unable to administer PO medications d/t sensorium and continued behaviors r/t nausea. Pt. continues on D5/LR @ 100cc/hr. Incontinent of urine/purewick applied; urine output nominal. Skin and hygiene care provided. Resting in bed quietly at this time.
[2022-05-31 06:25] LABS: Hemoglobin 10.1 g/dl (12.0-16.0); Mean Corpuscular HGB Conc 31.6 g/dl (31.0-35.0); Mean Corpuscular Hemoglobin 25.4 pg (27.0-33.0); Mean Corpuscular Volume 80.6 fL (80.0-98.0); Platelet Count 629 X10*3/uL (160-400); Red Blood Count 3.97 X10*6/uL (4.20-5.50); Red Cell Distribution Width 22.2 % (11.0-16.0); White Blood Count 11.3 X10*3/uL (4.8-10.8)
[2022-05-31 06:35] LABS: Anion Gap 22 (12-20); Blood Urea Nitrogen 40 mg/dL (9-16); Calcium 7.9 mg/dL (8.4-10.2); Carbon Dioxide 14 mmol/L (22-29); Chloride 103 mmol/L (96-108); Creatinine Clr Calc Pharmacy 33.7; Estimated Glomerular Filt Rate 27; Glucose Fasting 113 mg/dL (60-99); Potassium 4.5 mmol/L (3.3-5.1); Sodium 134 mmol/L (135-145)
[2022-05-31 07:35] LABS: Glucose, Whole Blood 114 mg/dL (60-115)
[2022-05-31 07:45] VITALS: BP 108/66; PULSE 80; RESP 18; TEMP 36.1; O2SAT 93
--- NOTE | 2022-05-31 08:29 | P.PNIM_ITS ---
Subjective Subjective Date of Service: 05/31/22 Interval History: cc: n/v interval history: n/v Physical Exam Vital Signs: Vital Signs: Last Vital Signs Temp 97.0 F 05/31/22 07:45 Pulse 80 05/31/22 07:45 Resp 18 05/31/22 07:45 BP 108/66 05/31/22 07:45 Pulse Ox 93 05/31/22 07:45 O2 Del Method 05/31/22 07:45 O2 Flow Rate 2.5 05/31/22 03:29 Oxygen Flow Rate 2 05/28/22 14:16 BMI result Body Mass Index 39.5 Const: Other: moaning Resp: Other: some shortness of breath Cardio: Rhythm: regular rhythm GI: Other: soft, sone tenderness diffusely Objective Data Active Medications Acetaminophen (Acetaminophen 325 Mg Tablet) 650 mg PO Q6H PRN PRN Reason: Pain, Mild (Pain Scale 1-3) Last Admin: 05/29/22 16:46 Dose: 650 mg Documented By: ORVILLE Lipase/Protease/Amylase (Lipase/Prot/Amylase 24/76/120k 1 Cap Capsule.Dr) 1 cap PO TIDWM [facility] Last Admin: 05/30/22 16:52 Dose: Not Given Documented By: ANEESH Non-Admin Reason: Patient Refused Apixaban (Apixaban 5 Mg Tablet) 5 mg PO BID [facility] Last Admin: 05/30/22 20:12 Dose: 5 mg Documented By: PRITI Dextrose (Dextrose 50 % 25 Gm/50 Ml Syringe) 25 gm IVPUSH Q15M PRN; Protocol PRN Reason: per Hypoglycemia Standing Ord. Glucose (Glucose Gel 15 Gm Gel..Gram.) 15 gm PO Q15M PRN; Protocol PRN Reason: per Hypoglycemia Standing Ord. Hydromorphone HCl (Hydromorphone Hcl 0.5 Mg/0.5 Ml Syringe) 0.5 mg IVPUSH Q4H PRN; Protocol PRN Reason: moderate pain Last Admin: 05/31/22 03:51 Dose: 0.5 mg Documented By: PRITI Piperacillin Sod/Tazobactam (Sod 4.5 gm/ Sodium Chloride) 100 mls @ 200 mls/hr IV Q6H [facility] Last Infusion: 05/31/22 02:51 Dose: 0 mls/hr Documented By: PRITI Sodium Bicarbonate 150 meq/ (Dextrose) 1,000 mls @ 100 mls/hr IV .Q10H [facility] Insulin Human Lispro (Insulin Lispro 100 Unit/Ml 3 Ml Vial) 0 unit SUBCUT QIDACHS [facility]; Protocol Last Admin: 05/31/22 07:36 Dose: Not Given Documented By: JOSLYN Non-Admin Reason: No Insulin Coverage Levothyroxine Sodium (Levothyroxine Sodium 75 Mcg Tablet) 75 mcg PO DAILY@0600 [facility] Last Admin: 05/31/22 05:45 Dose: Not Given Documented By: MARCO ANTONIO Non-Admin Reason: unable to tolerate/nausea Melatonin (Melatonin 3 Mg Tablet) 6 mg PO BEDTIME PRN PRN Reason: Insomnia Mirtazapine (Mirtazapine 7.5 Mg Tablet) 7.5 mg PO BEDTIME [facility] Last Admin: 05/30/22 20:12 Dose: 7.5 mg Documented By: PRITI Omeprazole (Omeprazole 20 Mg Capsule.Dr) 20 mg PO BID@0630,1630 [facility] Last Admin: 05/31/22 05:46 Dose: Not Given Documented By: MARCO ANTONIO Non-Admin Reason: unable to tolerate/nausea Ondansetron HCl (Ondansetron Hcl 4 Mg/2 Ml Vial) 4 mg IVPUSH Q8H PRN PRN Reason: Nausea and Vomiting Last Admin: 05/31/22 03:52 Dose: 4 mg Documented By: PRITI Pharmacy Consult (Consult Rx Perform Med Rec) 1 each MISCELLANE ONCE PRN PRN Reason: Consult order Potassium Chloride (Potassium Chloride Er 20 Meq Tab.Er.Prt) 20 meq PO BID [facility] Last Admin: 05/30/22 20:12 Dose: 20 meq Documented By: PRITI Sertraline HCl (Sertraline Hcl 25 Mg Tablet) 75 mg PO DAILY [facility] Last Admin: 05/30/22 09:13 Dose: 75 mg Documented By: ANEESH Sodium Chloride (0.9 % Sodium Chloride Flush 3 Ml Syringe) 3 ml IVFLUSH QSHIFT [facility] Last Admin: 05/31/22 00:14 Dose: Not Given Documented By: PRITI Non-Admin Reason: IV Running Labs 05/31/22 06:12 05/31/22 06:12 Labs: Laboratory Results - last 24 hr 05/30/22 05/30/22 05/30/22 11:11 16:39 18:59 MCV MCH MCHC RDW Plt Count MPV Absolute Nucleated RBC Nucleated RBC % (auto) Anion Gap Estim Creat Clear Calc Estimated GFR POC Glucose 189 H 203 H 180 H Fasting Glucose Calcium 05/31/22 05/31/22 05/31/22 06:12 06:12 07:14 MCV 80.6 MCH 25.4 L MCHC 31.6 RDW 22.2 H Plt Count 629 H MPV 9.0 L Absolute Nucleated RBC 0.000 Nucleated RBC % (auto) 0.0 Anion Gap 22 H Estim Creat Clear Calc 33.7 Estimated GFR 27 POC Glucose 114 Fasting Glucose 113 H Calcium 7.9 L Microbiology Microbiology Results: Microbiology 05/28/22 15:44 Blood Culture - Preliminary Blood - Venous No growth after 48 hours. 05/28/22 15:20 Blood Culture - Preliminary Blood - Venous No growth after 48 hours. 05/28/22 Unknown Urine Culture - Final Urine clean catch - Urine seymour top Assessment and Plan (1) Pancreatic cyst: Status: Acute Plan 76F with pertinent history of PE on Eliquis, obesity, recent cholangitis s/p ERCP with ERCP pancreatitis, mood disorder, gastroesophageal reflux disease, urinary incontinence, hypothyroidism, COPD on baseline 2 L supplemental oxygen who presented to the emergency department evaluation of abdominal pain/nausea and vomiting. Abdominal pain/nausea and vomiting acute exacerbation of pancreatitis not fully recovered since 01/2023, possibly complicated by infection of cyst doubt cholecystitis surgery appreciated advance diet as tolerated empiric zosyn follow up cultures - no growth so far continue creon Acute metabolic encephalopathy due to acute illness, donnie DONNIE with metabolic acidosis worsening acidosis, will change fluids to [id number], monitor history of pe eliquis mood disorder remeron, zoloft obesity hypothyroid synthroid chronic hypoxic respiratory failure due to copd on 2L home o2 stable bronchodilators as needed DM not on meds at home [place], monitor pocs, likely oral or diet control on discharge chronic microcytic anemia, thrombocytosis due to chronic inflammation DVT prophylaxis:? Eliquis DNR/DNI - discussed with HCP, daughter, Jessy, continue conservative therapy for now (IV meds, labs), would not want invasive procedures such as cyst drainage. reason for continued hospitalization:iv abx for possible pancreatic infection Time Spent With Patient Time: Total time managing care of this patient today ____ minutes. Quality Stroke Does the patient have a stroke diagnosis?: No VTE Prior VTE?: No VTE Risk Level:: Medical - moderate - high VTE Device Contraindication: Treatment Not Indicated VTE Drug Contraindication: N/A - Med Ordered
[2022-05-31] MEDS: Sodium Bicarbonate 8.4% 150 MEQ in Dextrose 5 % 850 ML 100 MEQ IV ×2 (08:33→19:47)
[2022-05-31] MEDS: 0.9 % Sodium Chloride Flush 3 ML SYRINGE IVFLUSH ×2 (08:34→15:18)
--- NOTE | 2022-05-31 08:48 | PC.NURSE ---
Pt refusing all PO medications, spitting them out. Dr Soler made aware.
[2022-05-31 11:28] LABS: Glucose, Whole Blood 129 mg/dL (60-115)
[2022-05-31] MEDS: Metoclopramide HCl 10 MG/2 ML VIAL 5 MG IVPUSH ×2 (12:05→19:53)
[2022-05-31] MEDS: Piperacillin Sodium/Tazobactam 3.375 GM in 0.9 % Sodium Chloride 50 ML IV ×2 (15:15→21:42)
[2022-05-31 15:41] VITALS: BP 106/56; PULSE 86; RESP 18; TEMP 36.6; O2SAT 98
[2022-05-31 16:28] LABS: Glucose, Whole Blood 138 mg/dL (60-115)
[2022-05-31 19:10] VITALS: BP 97/52; PULSE 88; RESP 14; TEMP 36.4
[2022-05-31 20:28] LABS: Glucose, Whole Blood 144 mg/dL (60-115)
[2022-05-31] MEDS: Apixaban 5 MG TABLET PO (21:40)
[2022-05-31] MEDS: Potassium Chloride ER 20 MEQ TAB.ER.PRT PO (22:01)
[2022-05-31] MEDS: Mirtazapine 7.5 MG TABLET PO (22:01)
[2022-06-01] MEDS: HYDROmorphone HCl 0.5 MG/0.5 ML SYRINGE IVPUSH ×2 (00:12→04:09)
[2022-06-01] MEDS: Piperacillin Sodium/Tazobactam 3.375 GM in 0.9 % Sodium Chloride 50 ML IV (03:14)
[2022-06-01] MEDS: Sodium Bicarbonate 8.4% 150 MEQ in Dextrose 5 % 850 ML 100 MEQ IV ×2 (05:26→15:16)
[2022-06-01] MEDS: Levothyroxine Sodium 75 MCG TABLET PO (05:35)
[2022-06-01 06:18] LABS: Hematocrit 28.8 % (37.0-47.0); Hemoglobin 9.5 g/dl (12.0-16.0); Mean Corpuscular Volume 78.7 fL (80.0-98.0); Mean Platelet Volume 9.4 fL (9.4-12.3); Platelet Count 611 X10*3/uL (160-400); Red Blood Count 3.66 X10*6/uL (4.20-5.50); Red Cell Distribution Width 21.7 % (11.0-16.0); White Blood Count 12.3 X10*3/uL (4.8-10.8)
[2022-06-01 06:53] LABS: Anion Gap 23 (12-20); Blood Urea Nitrogen 47 mg/dL (9-16); Calcium 7.5 mg/dL (8.4-10.2); Carbon Dioxide 21 mmol/L (22-29); Chloride 98 mmol/L (96-108); Creatinine Clr Calc Pharmacy 30.5; Estimated Glomerular Filt Rate 24; Glucose Fasting 174 mg/dL (60-99); Potassium 3.7 mmol/L (3.3-5.1); Sodium 138 mmol/L (135-145)
[2022-06-01 07:35] LABS: Glucose, Whole Blood 176 mg/dL (60-115)
--- NOTE | 2022-06-01 07:57 | PC.NURSE ---
Pt refusing medications. Dr Soler aware.
[2022-06-01 08:00] VITALS: BP 109/59; PULSE 80; RESP 15; TEMP 36.8; O2SAT 97
--- NOTE | 2022-06-01 08:11 | P.PNIM_ITS ---
Subjective Subjective Date of Service: 06/01/22 Interval History: cc: n/v interval history: n/v Physical Exam Vital Signs: Vital Signs: Last Vital Signs Temp 97.5 F 05/31/22 19:10 Pulse 88 05/31/22 19:10 Resp 14 05/31/22 19:10 BP 97/52 L 05/31/22 19:10 Pulse Ox 98 05/31/22 15:41 O2 Del Method 05/31/22 15:41 O2 Flow Rate 2.5 05/31/22 15:41 Oxygen Flow Rate 2 05/28/22 14:16 BMI result Body Mass Index 39.5 Const: Other: moaning Resp: Other: some shortness of breath Cardio: Rhythm: regular rhythm GI: Other: soft, sone tenderness diffusely Objective Data Active Medications Acetaminophen (Acetaminophen 325 Mg Tablet) 650 mg PO Q6H PRN PRN Reason: Pain, Mild (Pain Scale 1-3) Last Admin: 05/29/22 16:46 Dose: 650 mg Documented By: ORVILLE Lipase/Protease/Amylase (Lipase/Prot/Amylase 24/76/120k 1 Cap Capsule.Dr) 1 cap PO TIDWM [facility] Last Admin: 06/01/22 07:56 Dose: Not Given Documented By: JOSLYN Non-Admin Reason: Patient Refused Apixaban (Apixaban 5 Mg Tablet) 5 mg PO BID [facility] Last Admin: 06/01/22 07:56 Dose: Not Given Documented By: JOSLYN Non-Admin Reason: Patient Refused Dextrose (Dextrose 50 % 25 Gm/50 Ml Syringe) 25 gm IVPUSH Q15M PRN; Protocol PRN Reason: per Hypoglycemia Standing Ord. Glucose (Glucose Gel 15 Gm Gel..Gram.) 15 gm PO Q15M PRN; Protocol PRN Reason: per Hypoglycemia Standing Ord. Hydromorphone HCl (Hydromorphone Hcl 0.5 Mg/0.5 Ml Syringe) 0.5 mg IVPUSH Q4H PRN; Protocol PRN Reason: moderate pain Last Admin: 06/01/22 04:09 Dose: 0.5 mg Documented By: PRITI Sodium Bicarbonate 150 meq/ (Dextrose) 1,000 mls @ 100 mls/hr IV .Q10H [facility] Last Admin: 06/01/22 05:26 Dose: 100 mls/hr Documented By: PRITI Insulin Human Lispro (Insulin Lispro 100 Unit/Ml 3 Ml Vial) 0 unit SUBCUT QIDACHS [facility]; Protocol Last Admin: 06/01/22 07:55 Dose: Not Given Documented By: JOSLYN Non-Admin Reason: NPO Levothyroxine Sodium (Levothyroxine Sodium 75 Mcg Tablet) 75 mcg PO DAILY@0600 [facility] Last Admin: 06/01/22 05:35 Dose: 75 mcg Documented By: PRITI Melatonin (Melatonin 3 Mg Tablet) 6 mg PO BEDTIME PRN PRN Reason: Insomnia Metoclopramide HCl (Metoclopramide Hcl 10 Mg/2 Ml Vial) 5 mg IVPUSH Q6H PRN PRN Reason: nausea Last Admin: 05/31/22 19:53 Dose: 5 mg Documented By: PRITI Mirtazapine (Mirtazapine 7.5 Mg Tablet) 7.5 mg PO BEDTIME [facility] Last Admin: 05/31/22 22:01 Dose: 7.5 mg Documented By: PRITI Omeprazole (Omeprazole 20 Mg Capsule.Dr) 20 mg PO BID@0630,1630 [facility] Last Admin: 06/01/22 05:39 Dose: Not Given Documented By: PRITI Non-Admin Reason: pt not able to swallow capsule Ondansetron HCl (Ondansetron Hcl 4 Mg/2 Ml Vial) 4 mg IVPUSH Q8H PRN PRN Reason: Nausea and Vomiting Last Admin: 05/31/22 03:52 Dose: 4 mg Documented By: PRITI Pharmacy Consult (Consult Rx Perform Med Rec) 1 each MISCELLANE ONCE PRN PRN Reason: Consult order Potassium Chloride (Potassium Chloride Er 20 Meq Tab.Er.Prt) 20 meq PO BID [facility] Last Admin: 06/01/22 07:56 Dose: Not Given Documented By: JOSLYN Non-Admin Reason: Patient Refused Sertraline HCl (Sertraline Hcl 25 Mg Tablet) 75 mg PO DAILY [facility] Last Admin: 06/01/22 07:56 Dose: Not Given Documented By: JOSLYN Non-Admin Reason: Patient Refused Sodium Chloride (0.9 % Sodium Chloride Flush 3 Ml Syringe) 3 ml IVFLUSH QSHIFT [facility] Last Admin: 06/01/22 07:30 Dose: Not Given Documented By: JOSLYN Non-Admin Reason: IV Running Labs 06/01/22 06:00 06/01/22 06:00 Labs: Laboratory Results - last 24 hr 05/31/22 05/31/22 05/31/22 11:24 16:25 20:18 MCV MCH MCHC RDW Plt Count MPV Absolute Nucleated RBC Nucleated RBC % (auto) Anion Gap Estim Creat Clear Calc Estimated GFR POC Glucose 129 H 138 H 144 H Fasting Glucose Calcium 06/01/22 06/01/22 06/01/22 06:00 06:00 07:16 MCV 78.7 L MCH 26.0 L MCHC 33.0 RDW 21.7 H Plt Count 611 H MPV 9.4 Absolute Nucleated RBC 0.000 Nucleated RBC % (auto) 0.0 Anion Gap 23 H Estim Creat Clear Calc 30.5 Estimated GFR 24 POC Glucose 176 H Fasting Glucose 174 H Calcium 7.5 L Assessment and Plan (1) Pancreatic cyst: Status: Acute Plan 76F with pertinent history of PE on Eliquis, obesity, recent cholangitis s/p ERCP with ERCP pancreatitis, mood disorder, gastroesophageal reflux disease, urinary incontinence, hypothyroidism, COPD on baseline 2 L supplemental oxygen who presented to the emergency department evaluation of abdominal pain/nausea and vomiting. Abdominal pain/nausea and vomiting acute exacerbation of pancreatitis not fully recovered since 01/2023, possibly complicated by infection of cyst doubt cholecystitis surgery appreciated advance diet as tolerated - not eating much will dc zosyn cultures negative continue creon with meals Acute metabolic encephalopathy due to acute illness, donnie DONNIE with metabolic acidosis acidosis improving with bicarb, continue, monitor history of pe eliquis mood disorder remeron, zoloft obesity hypothyroid synthroid chronic hypoxic respiratory failure due to copd on 2L home o2 stable bronchodilators as needed DM not on meds at home [place], monitor pocs chronic microcytic anemia, thrombocytosis due to chronic inflammation DVT prophylaxis:? Eliquis DNR/DNI - discussed with HCP, daughter, Jessy, continue conservative therapy for now (IV meds, labs), would not want invasive procedures such as cyst drainage. overall poor prognosis reason for continued hospitalization: wrosening renal function Time Spent With Patient Time: Total time managing care of this patient today ____ minutes. Quality Stroke Does the patient have a stroke diagnosis?: No VTE Prior VTE?: No VTE Risk Level:: Medical - moderate - high VTE Device Contraindication: Treatment Not Indicated VTE Drug Contraindication: N/A - Med Ordered
[2022-06-01 11:28] LABS: Glucose, Whole Blood 142 mg/dL (60-115)
[2022-06-01] MEDS: Metoclopramide HCl 10 MG/2 ML VIAL 5 MG IVPUSH ×2 (14:48→21:03)
[2022-06-01 16:00] VITALS: BP 98/55; PULSE 81; RESP 20; TEMP 35.9; O2SAT 95
[2022-06-01 16:25] LABS: Glucose, Whole Blood 141 mg/dL (60-115)
[2022-06-01] MEDS: ondansetron HCL 4 MG/2 ML VIAL IVPUSH (18:18)
[2022-06-01 20:14] LABS: Glucose, Whole Blood 144 mg/dL (60-115)
[2022-06-01 20:24] VITALS: BP 90/57; PULSE 84; RESP 16; TEMP 36.3; O2SAT 98
[2022-06-01 23:57] VITALS: BP 109/59; PULSE 76; RESP 18; TEMP 36.3; O2SAT 97
[2022-06-02] MEDS: Sodium Bicarbonate 8.4% 150 MEQ in Dextrose 5 % 850 ML 100 MEQ IV (01:07)
[2022-06-02] MEDS: ondansetron HCL 4 MG/2 ML VIAL IVPUSH ×3 (03:32→19:59)
[2022-06-02] MEDS: Levothyroxine Sodium 75 MCG TABLET PO (05:39)
[2022-06-02] MEDS: Omeprazole 20 MG CAPSULE.DR PO (05:39)
[2022-06-02 07:13] VITALS: BP 120/60; PULSE 77; RESP 18; TEMP 36.6; O2SAT 97
[2022-06-02 07:13] LABS: Glucose, Whole Blood 139 mg/dL (60-115)
[2022-06-02 07:51] LABS: Hematocrit 27.1 % (37.0-47.0); Hemoglobin 8.7 g/dl (12.0-16.0); Mean Corpuscular HGB Conc 32.1 g/dl (31.0-35.0); Mean Corpuscular Hemoglobin 25.3 pg (27.0-33.0); Mean Corpuscular Volume 78.8 fL (80.0-98.0); Red Blood Count 3.44 X10*6/uL (4.20-5.50); Red Cell Distribution Width 21.7 % (11.0-16.0); White Blood Count 5.7 X10*3/uL (4.8-10.8)
--- NOTE | 2022-06-02 08:00 | HO.PM.IMPN ---
Subjective Subjective Date of Service: 06/02/22 Interval History: cc: n/v interval history: n/v Physical Exam Vital Signs: Vital Signs: Last Vital Signs Temp 97.9 F 06/02/22 07:13 Pulse 77 06/02/22 07:13 Resp 18 06/02/22 07:13 BP 120/60 06/02/22 07:13 Pulse Ox 97 06/02/22 07:13 O2 Del Method 06/02/22 07:13 O2 Flow Rate 2.5 06/02/22 07:13 Oxygen Flow Rate 2 05/28/22 14:16 BMI result Body Mass Index 39.5 General: lethargic, ill appearing, anasarca Resp: diminished bilateral, no accessory muscles used CVS: S1,S2,RRR GI: soft, non tender, non distended Objective Data Active Medications Acetaminophen (Acetaminophen 325 Mg Tablet) 650 mg PO Q6H PRN PRN Reason: Pain, Mild (Pain Scale 1-3) Last Admin: 05/29/22 16:46 Dose: 650 mg Documented By: ORVILLE Lipase/Protease/Amylase (Lipase/Prot/Amylase 24/76/120k 1 Cap Capsule.Dr) 1 cap PO TIDWM [facility] Last Admin: 06/01/22 16:10 Dose: Not Given Documented By: JOSLYN Non-Admin Reason: Patient Refused Apixaban (Apixaban 5 Mg Tablet) 5 mg PO BID [facility] Last Admin: 06/01/22 20:08 Dose: Not Given Documented By: LEODAN Non-Admin Reason: Patient Refused Dextrose (Dextrose 50 % 25 Gm/50 Ml Syringe) 25 gm IVPUSH Q15M PRN; Protocol PRN Reason: per Hypoglycemia Standing Ord. Glucose (Glucose Gel 15 Gm Gel..Gram.) 15 gm PO Q15M PRN; Protocol PRN Reason: per Hypoglycemia Standing Ord. Hydromorphone HCl (Hydromorphone Hcl 0.5 Mg/0.5 Ml Syringe) 0.5 mg IVPUSH Q4H PRN; Protocol PRN Reason: moderate pain Last Admin: 06/01/22 04:09 Dose: 0.5 mg Documented By: PRITI Dextrose/Sodium Chloride (D51/2ns) 1,000 mls @ 80 mls/hr IVCONT .[id number] [facility] Insulin Human Lispro (Insulin Lispro 100 Unit/Ml 3 Ml Vial) 0 unit SUBCUT QIDACHS [facility]; Protocol Last Admin: 06/02/22 07:18 Dose: Not Given Documented By: ANEESH Non-Admin Reason: No Insulin Coverage Levothyroxine Sodium (Levothyroxine Sodium 75 Mcg Tablet) 75 mcg PO DAILY@0600 [facility] Last Admin: 06/02/22 05:39 Dose: 75 mcg Documented By: LEODAN Melatonin (Melatonin 3 Mg Tablet) 6 mg PO BEDTIME PRN PRN Reason: Insomnia Metoclopramide HCl (Metoclopramide Hcl 10 Mg/2 Ml Vial) 5 mg IVPUSH Q6H PRN PRN Reason: nausea Last Admin: 06/01/22 21:03 Dose: 5 mg Documented By: LEODAN Mirtazapine (Mirtazapine 7.5 Mg Tablet) 7.5 mg PO BEDTIME [facility] Last Admin: 06/01/22 20:09 Dose: Not Given Documented By: LEODAN Non-Admin Reason: Patient Refused Omeprazole (Omeprazole 20 Mg Capsule.) 20 mg PO BID@0630,1630 [facility] Last Admin: 06/02/22 05:39 Dose: 20 mg Documented By: LEODAN Ondansetron HCl (Ondansetron Hcl 4 Mg/2 Ml Vial) 4 mg IVPUSH Q8H PRN PRN Reason: Nausea and Vomiting Last Admin: 06/02/22 03:32 Dose: 4 mg Documented By: LEODAN Pharmacy Consult (Consult Rx Perform Med Rec) 1 each MISCELLANE ONCE PRN PRN Reason: Consult order Potassium Chloride (Potassium Chloride Er 20 Meq Tab.Er.Prt) 20 meq PO BID [facility] Last Admin: 06/01/22 20:08 Dose: Not Given Documented By: LEODAN Non-Admin Reason: Patient Refused Sertraline HCl (Sertraline Hcl 25 Mg Tablet) 75 mg PO DAILY [facility] Last Admin: 06/01/22 07:56 Dose: Not Given Documented By: JOSLYN Non-Admin Reason: Patient Refused Sodium Chloride (0.9 % Sodium Chloride Flush 3 Ml Syringe) 3 ml IVFLUSH QSHIFT [facility] Last Admin: 06/02/22 00:00 Dose: Not Given Documented By: HO.ODRISM Non-Admin Reason: IV Running Labs 06/02/22 07:45 06/01/22 06:00 Labs: Laboratory Results - last 24 hr 06/01/22 06/01/22 06/01/22 11:14 16:18 20:10 MCV MCH MCHC RDW Plt Count MPV Absolute Nucleated RBC Nucleated RBC % (auto) POC Glucose 142 H 141 H 144 H 06/02/22 06/02/22 07:00 07:45 MCV 78.8 L MCH 25.3 L MCHC 32.1 RDW 21.7 H Plt Count Not Reportable MPV Not Reportable Absolute Nucleated RBC 0.000 Nucleated RBC % (auto) 0.0 POC Glucose 139 H Assessment and Plan (1) Pancreatic cyst: Status: Acute Plan 76F with pertinent history of PE on Eliquis, obesity, recent cholangitis s/p ERCP with ERCP pancreatitis, mood disorder, gastroesophageal reflux disease, urinary incontinence, hypothyroidism, COPD on baseline 2 L supplemental oxygen who presented to the emergency department evaluation of abdominal pain/nausea and vomiting. Abdominal pain/nausea and vomiting acute exacerbation of pancreatitis not fully recovered since 01/2023, possibly complicated by infection of cyst doubt cholecystitis surgery appreciated advance diet as tolerated - not eating much dced zosyn cultures negative continue creon with meals Acute metabolic encephalopathy due to acute illness, donnie DONNIE with metabolic acidosis acidosis improved, change bicarb to d51/2ns at 80cc/hr for maintenance, monitor bmp history of pe eliquis mood disorder remeron, zoloft obesity hypothyroid synthroid chronic hypoxic respiratory failure due to copd on 2L home o2 stable bronchodilators as needed DM not on meds at home [place], monitor pocs chronic microcytic anemia, thrombocytosis due to chronic inflammation DVT prophylaxis:? Eliquis DNR/DNI - discussed with HCP, daughter, Jessy, continue conservative therapy for now (IV meds, labs), would not want invasive procedures such as cyst drainage. overall poor prognosis reason for continued hospitalization: worsening renal function Time Spent With Patient Time: Total time managing care of this patient today ____ minutes. Quality Stroke Does the patient have a stroke diagnosis?: No VTE Prior VTE?: No VTE Risk Level:: Medical - moderate - high VTE Device Contraindication: Treatment Not Indicated VTE Drug Contraindication: N/A - Med Ordered
[2022-06-02 08:05] LABS: Anion Gap 21 (12-20); Blood Urea Nitrogen 46 mg/dL (9-16); Calcium 7.3 mg/dL (8.4-10.2); Carbon Dioxide 26 mmol/L (22-29); Chloride 94 mmol/L (96-108); Creatinine Clr Calc Pharmacy 30.9; Estimated Glomerular Filt Rate 24; Glucose Fasting 152 mg/dL (60-99); Potassium 2.9 mmol/L (3.3-5.1); Sodium 138 mmol/L (135-145)
[2022-06-02] MEDS: 0.9 % Sodium Chloride Flush 3 ML SYRINGE IVFLUSH ×2 (08:29→20:11)
[2022-06-02] MEDS: Dextrose 5 % and 0.45 % NaCl 1,000 ML 80 ML IVCONT ×2 (08:29→20:00)
[2022-06-02] MEDS: Potassium Chloride Packet 20 MEQ PACKET 40 MEQ PO (10:27)
[2022-06-02 11:02] LABS: Glucose, Whole Blood 133 mg/dL (60-115)
[2022-06-02 15:23] VITALS: BP 99/80; PULSE 72; RESP 20; TEMP 36.2; O2SAT 95
[2022-06-02 16:12] LABS: Glucose, Whole Blood 151 mg/dL (60-115)
[2022-06-02] MEDS: Metoclopramide HCl 10 MG/2 ML VIAL 5 MG IVPUSH ×2 (18:38→23:51)
[2022-06-02] MEDS: Potassium Chloride ER 20 MEQ TAB.ER.PRT PO (20:00)
[2022-06-02] MEDS: Apixaban 5 MG TABLET PO (20:00)
[2022-06-02] MEDS: Mirtazapine 7.5 MG TABLET PO (20:00)
[2022-06-02 21:23] LABS: Glucose, Whole Blood 160 mg/dL (60-115)
[2022-06-03] VITALS: BP 113/64; PULSE 98; RESP 18; TEMP 36.1; O2SAT 95
--- NOTE | 2022-06-03 01:45 | PM.EVENT ---
Event Note Date of Service: 06/03/22 Event Note: pt blood cultures growing gram negative rods pt asymptomatic no fever, no elevated WBC count will rpt cultures, will hold off on abx at this time Time Spent With Patient Time: Total time managing care of this patient today ____ minutes.
--- NOTE | 2022-06-03 02:58 | PC.NURSE ---
Pt seen on bed asleep and awaken when spoken to, seen with generalized edema and weakness, occasional non prod cough, still c/o nausea, prn Zofran given, Po meds crushed with apple sauce, pt hardly tolerated meds, repositioned on bed, callbell use reiterated. At 0132 lab called for a critical blood culture result of gram negative rods gram stain , sample drawn 05/28/22, Dr. Delacruz was made aware, repeat blood culture ordered, assistant media buyer was unable to draw blood as pt is hard stick, will try again later in the morning, Dr. Delacruz was made aware.
[2022-06-03] MEDS: Levothyroxine Sodium 75 MCG TABLET PO (05:51)
[2022-06-03] MEDS: Omeprazole 20 MG CAPSULE.DR PO ×2 (05:51→15:22)
[2022-06-03 06:52] LABS: Hematocrit 31.1 % (37.0-47.0); Hemoglobin 10.1 g/dl (12.0-16.0); Mean Corpuscular HGB Conc 32.5 g/dl (31.0-35.0); Mean Corpuscular Hemoglobin 25.5 pg (27.0-33.0); Mean Corpuscular Volume 78.5 fL (80.0-98.0); Mean Platelet Volume 9.1 fL (9.4-12.3); Platelet Count 520 X10*3/uL (160-400); Red Blood Count 3.96 X10*6/uL (4.20-5.50); Red Cell Distribution Width 21.5 % (11.0-16.0); White Blood Count 6.9 X10*3/uL (4.8-10.8)
[2022-06-03 07:13] VITALS: BP 104/60; PULSE 84; RESP 19; TEMP 36.6; O2SAT 95
[2022-06-03 07:18] LABS: Anion Gap 17 (12-20); Blood Urea Nitrogen 45 mg/dL (9-16); Calcium 7.2 mg/dL (8.4-10.2); Carbon Dioxide 28 mmol/L (22-29); Chloride 93 mmol/L (96-108); Creatinine Clr Calc Pharmacy 29.2; Estimated Glomerular Filt Rate 23; Glucose Fasting 146 mg/dL (60-99); Potassium 2.5 mmol/L (3.3-5.1); Sodium 135 mmol/L (135-145)
[2022-06-03 08:13] LABS: Magnesium 1.5 mg/dL (1.6-2.6)
[2022-06-03 08:34] LABS: Glucose, Whole Blood 143 mg/dL (60-115)
[2022-06-03] MEDS: Potassium Chloride Packet 20 MEQ PACKET 40 MEQ PO (08:37)
[2022-06-03] MEDS: 0.9 % Sodium Chloride Flush 3 ML SYRINGE IVFLUSH ×2 (08:37→15:22)
[2022-06-03] MEDS: Sertraline HCL 25 MG TABLET 75 MG PO (08:37)
[2022-06-03] MEDS: Potassium Chloride ER 20 MEQ TAB.ER.PRT PO ×2 (08:37→20:41)
[2022-06-03] MEDS: ondansetron HCL 4 MG/2 ML VIAL IVPUSH (08:37)
[2022-06-03] MEDS: Lipase/Prot/Amylase 24/76/120K 1 CAP CAPSULE.DR PO ×2 (08:37→15:22)
[2022-06-03] MEDS: Apixaban 5 MG TABLET PO ×2 (08:37→20:41)
[2022-06-03] MEDS: Acetaminophen 325 MG TABLET 650 MG PO (08:38)
--- NOTE | 2022-06-03 08:58 | HO.PM.IMPN ---
Subjective Subjective Date of Service: 06/03/22 Interval History: cc: n/v interval history: feels poor Physical Exam Vital Signs: Vital Signs: Last Vital Signs Temp 98 F 06/03/22 07:13 Pulse 84 06/03/22 07:13 Resp 19 06/03/22 07:13 BP 104/60 06/03/22 07:13 Pulse Ox 95 06/03/22 07:13 O2 Del Method 06/03/22 07:13 O2 Flow Rate 2.5 06/03/22 07:13 Oxygen Flow Rate 2 05/28/22 14:16 BMI result Body Mass Index 39.5 General: lethargic, ill appearing, anasarca Resp: diminished bilateral, no accessory muscles used CVS: S1,S2,RRR GI: soft, non tender, non distended Objective Data Active Medications Acetaminophen (Acetaminophen 325 Mg Tablet) 650 mg PO Q6H PRN PRN Reason: Pain, Mild (Pain Scale 1-3) Last Admin: 05/29/22 16:46 Dose: 650 mg Documented By: ORVILLE Lipase/Protease/Amylase (Lipase/Prot/Amylase 24/76/120k 1 Cap Capsule.Dr) 1 cap PO TIDWM [facility] Last Admin: 06/02/22 17:14 Dose: Not Given Documented By: ANEESH Non-Admin Reason: Patient Refused Apixaban (Apixaban 5 Mg Tablet) 5 mg PO BID [facility] Last Admin: 06/02/22 20:00 Dose: 5 mg Documented By: ROSS Dextrose (Dextrose 50 % 25 Gm/50 Ml Syringe) 25 gm IVPUSH Q15M PRN; Protocol PRN Reason: per Hypoglycemia Standing Ord. Glucose (Glucose Gel 15 Gm Gel..Gram.) 15 gm PO Q15M PRN; Protocol PRN Reason: per Hypoglycemia Standing Ord. Hydromorphone HCl (Hydromorphone Hcl 0.5 Mg/0.5 Ml Syringe) 0.5 mg IVPUSH Q4H PRN; Protocol PRN Reason: moderate pain Last Admin: 06/01/22 04:09 Dose: 0.5 mg Documented By: PRITI Dextrose/Sodium Chloride (D51/2ns) 1,000 mls @ 80 mls/hr IVCONT .[id number] [facility] Last Admin: 06/02/22 20:00 Dose: 80 mls/hr Documented By: ROSS Magnesium Sulfate (Magnesium Sulfate/H2o) 2 gm in 50 mls @ 25 mls/hr IV ONCE ONE Stop: 06/03/22 10:55 Insulin Human Lispro (Insulin Lispro 100 Unit/Ml 3 Ml Vial) 0 unit SUBCUT QIDACHS [facility]; Protocol Last Admin: 06/03/22 07:28 Dose: Not Given Documented By: AMAURI Non-Admin Reason: No Insulin Coverage Levothyroxine Sodium (Levothyroxine Sodium 75 Mcg Tablet) 75 mcg PO DAILY@0600 [facility] Last Admin: 06/03/22 05:51 Dose: 75 mcg Documented By: ROSS Melatonin (Melatonin 3 Mg Tablet) 6 mg PO BEDTIME PRN PRN Reason: Insomnia Metoclopramide HCl (Metoclopramide Hcl 10 Mg/2 Ml Vial) 5 mg IVPUSH Q6H PRN PRN Reason: nausea Last Admin: 06/02/22 23:51 Dose: 5 mg Documented By: ROSS Mirtazapine (Mirtazapine 7.5 Mg Tablet) 7.5 mg PO BEDTIME [facility] Last Admin: 06/02/22 20:00 Dose: 7.5 mg Documented By: ROSS Omeprazole (Omeprazole 20 Mg Capsule.) 20 mg PO BID@0630,1630 [facility] Last Admin: 06/03/22 05:51 Dose: 20 mg Documented By: ROSS Ondansetron HCl (Ondansetron Hcl 4 Mg/2 Ml Vial) 4 mg IVPUSH Q8H PRN PRN Reason: Nausea and Vomiting Last Admin: 06/02/22 19:59 Dose: 4 mg Documented By: ROSS Pharmacy Consult (Consult Rx Perform Med Rec) 1 each MISCELLANE ONCE PRN PRN Reason: Consult order Potassium Chloride (Potassium Chloride Er 20 Meq Tab.Er.Prt) 20 meq PO BID [facility] Last Admin: 06/02/22 20:00 Dose: 20 meq Documented By: ROSS Sertraline HCl (Sertraline Hcl 25 Mg Tablet) 75 mg PO DAILY [facility] Last Admin: 06/02/22 08:31 Dose: Not Given Documented By: ANEESH Non-Admin Reason: Patient Refused Sodium Chloride (0.9 % Sodium Chloride Flush 3 Ml Syringe) 3 ml IVFLUSH QSHIFT [facility] Last Admin: 06/02/22 20:11 Dose: 3 ml Documented By: ROSS Labs 06/03/22 06:45 06/03/22 06:45 Labs: Laboratory Results - last 24 hr 06/02/22 06/02/22 06/02/22 10:58 16:08 21:20 MCV MCH MCHC RDW Plt Count MPV Absolute Nucleated RBC Nucleated RBC % (auto) Anion Gap Estim Creat Clear Calc Estimated GFR POC Glucose 133 H 151 H 160 H Fasting Glucose Calcium Magnesium 06/03/22 06/03/22 06/03/22 06:45 06:45 07:13 MCV 78.5 L MCH 25.5 L MCHC 32.5 RDW 21.5 H Plt Count 520 H MPV 9.1 L Absolute Nucleated RBC 0.000 Nucleated RBC % (auto) 0.0 Anion Gap 17 Estim Creat Clear Calc 29.2 Estimated GFR 23 POC Glucose 143 H Fasting Glucose 146 H Calcium 7.2 L Magnesium 1.5 L Microbiology Microbiology Results: Microbiology 05/28/22 15:44 Blood Culture - Preliminary Blood - Venous Prelim: GNR Gram Stain only 05/28/22 15:20 Blood Culture - Final Blood - Venous No growth after 5 days. Assessment and Plan (1) Pancreatic cyst: Status: Acute Plan 76F with pertinent history of PE on Eliquis, obesity, recent cholangitis s/p ERCP with ERCP pancreatitis, mood disorder, gastroesophageal reflux disease, urinary incontinence, hypothyroidism, COPD on baseline 2 L supplemental oxygen who presented to the emergency department evaluation of abdominal pain/nausea and vomiting. Abdominal pain/nausea and vomiting acute exacerbation of pancreatitis not fully recovered since 01/2023, possibly complicated by infection of cyst doubt cholecystitis surgery appreciated advance diet as tolerated - not eating much dced zosyn cultures negative continue creon with meals Acute metabolic encephalopathy due to acute illness, donnie DONNIE with metabolic acidosis with anasarca acidosis improved real for fluid management albumin with lasix history of pe eliquis mood disorder remeron, zoloft obesity hypothyroid synthroid chronic hypoxic respiratory failure due to copd on 2L home o2 stable bronchodilators as needed DM not on meds at home in[place], monitor pocs chronic microcytic anemia, thrombocytosis due to chronic inflammation DVT prophylaxis:? Eliquis DNR/DNI - discussed with HCP, daughter, Jessy, continue conservative therapy for now (IV meds, labs), would not want invasive procedures such as cyst drainage. overall poor prognosis reason for continued hospitalization: worsening renal function Time Spent With Patient Time: Total time managing care of this patient today ____ minutes. Quality Stroke Does the patient have a stroke diagnosis?: No VTE Prior VTE?: No VTE Risk Level:: Medical - moderate - high VTE Device Contraindication: Treatment Not Indicated VTE Drug Contraindication: N/A - Med Ordered
[2022-06-03] MEDS: Dextrose 5 % and 0.45 % NaCl 1,000 ML 80 ML IVCONT (09:16)
--- NOTE | 2022-06-03 09:25 | PC.NURSE ---
Attempted to obtain peripheral access at this time, unable. MD Ryder aware at this time.
[2022-06-03] MEDS: Furosemide 40 MG/4 ML VIAL IVPUSH (10:47)
[2022-06-03] MEDS: Albumin Human 25 % 100 ML IV ×2 (10:53→14:14)
[2022-06-03 11:13] LABS: Glucose, Whole Blood 134 mg/dL (60-115)
[2022-06-03] MEDS: Magnesium Sulfate/H2O 2 GM/50 ML PIGGYBACK IV (12:20)
[2022-06-03 15:20] VITALS: BP 112/56; PULSE 86; RESP 19; TEMP 36.6; O2SAT 98
[2022-06-03 16:40] LABS: Glucose, Whole Blood 114 mg/dL (60-115)
[2022-06-03 19:06] VITALS: BP 114/61; PULSE 88; RESP 18; TEMP 36.2; O2SAT 97
[2022-06-03 20:41] LABS: Glucose, Whole Blood 123 mg/dL (60-115)
[2022-06-03] MEDS: Mirtazapine 7.5 MG TABLET PO (20:41)
[2022-06-03 21:59] LABS: Anion Gap 18 (12-20); Blood Urea Nitrogen 42 mg/dL (9-16); Calcium 7.4 mg/dL (8.4-10.2); Carbon Dioxide 26 mmol/L (22-29); Chloride 95 mmol/L (96-108); Creatinine Clr Calc Pharmacy 30.7; Estimated Glomerular Filt Rate 24; Glucose Random 121 mg/dL (60-115); Potassium 2.6 mmol/L (3.3-5.1); Sodium 136 mmol/L (135-145)
[2022-06-03 23:24] VITALS: BP 116/58; PULSE 80; RESP 18; TEMP 36; O2SAT 93
[2022-06-04] MEDS: Dextrose 5 % and 0.45 % NaCl 1,000 ML 80 ML IVCONT ×2 (04:07→14:49)
[2022-06-04] MEDS: Levothyroxine Sodium 75 MCG TABLET PO (06:28)
[2022-06-04] MEDS: Omeprazole 20 MG CAPSULE.DR PO ×2 (06:28→17:22)
[2022-06-04 07:10] VITALS: BP 90/53; PULSE 78; RESP 16; TEMP 36.4; O2SAT 98
[2022-06-04 07:50] LABS: Glucose, Whole Blood 124 mg/dL (60-115)
[2022-06-04] MEDS: Apixaban 5 MG TABLET PO ×2 (08:24→20:58)
[2022-06-04] MEDS: Potassium Chloride Packet 20 MEQ PACKET 40 MEQ PO (08:24)
[2022-06-04] MEDS: Potassium Chloride/H20 10 MEQ/100 ML PIGGYBACK 100 MEQ IV ×4 (08:24→13:40)
[2022-06-04] MEDS: Lipase/Prot/Amylase 24/76/120K 1 CAP CAPSULE.DR PO ×2 (08:24→17:22)
[2022-06-04] MEDS: Sertraline HCL 25 MG TABLET 75 MG PO (08:24)
[2022-06-04 08:34] LABS: Hematocrit 25.7 % (37.0-47.0); Hemoglobin 8.3 g/dl (12.0-16.0); Mean Corpuscular HGB Conc 32.3 g/dl (31.0-35.0); Mean Corpuscular Hemoglobin 25.6 pg (27.0-33.0); Mean Corpuscular Volume 79.3 fL (80.0-98.0); Mean Platelet Volume 9.6 fL (9.4-12.3); Platelet Count 394 X10*3/uL (160-400); Red Blood Count 3.24 X10*6/uL (4.20-5.50); Red Cell Distribution Width 21.8 % (11.0-16.0)
[2022-06-04 08:52] LABS: Alanine Aminotransferase < 6 U/L (0-31); Albumin Level 2.3 g/dL (3.5-5.0); Alkaline Phosphatase 153 U/L (39-117); Anion Gap 16 (12-20); Aspartate Amino Transferase 11 U/L (5-31); Bilirubin Direct 0.3 mg/dL (0.0-0.5); Bilirubin Total 0.5 mg/dL (0.0-1.0); Blood Urea Nitrogen 42 mg/dL (9-16); Calcium 7.5 mg/dL (8.4-10.2); Carbon Dioxide 27 mmol/L (22-29); Chloride 96 mmol/L (96-108); Estimated Glomerular Filt Rate 25; Glucose Fasting 118 mg/dL (60-99); Magnesium 1.8 mg/dL (1.6-2.6); Potassium 2.6 mmol/L (3.3-5.1); Sodium 136 mmol/L (135-145); Total Protein 4.3 g/dL (6.5-8.0)
[2022-06-04] MEDS: Potassium Chloride ER 20 MEQ TAB.ER.PRT PO (09:19)
[2022-06-04] MEDS: ondansetron HCL 4 MG/2 ML VIAL IVPUSH (09:19)
[2022-06-04 09:47] VITALS: BMI 39.5
[2022-06-04] MEDS: Metoclopramide HCl 10 MG/2 ML VIAL 5 MG IVPUSH (09:54)
--- NOTE | 2022-06-04 10:09 | MHC.CLN ---
NUTRITION CONSULT FOR SKIN. PATIENT WITH RED/EXCORIATED BUTTOCKS/COCCYX. POOR INTAKE SINCE ADMISSION, 0-25%. ADDING ENSURE TID. SUPPLEMENT PROVIDES 1050 KCALS, 60 G PROTEIN. SEE NUTRITION ASSESSMENT 06/04/22.
--- NOTE | 2022-06-04 10:49 | HO.PM.IMPN ---
Subjective Subjective Date of Service: 06/04/22 Interval History: more alert and interactive\ feeling nauseated not eating much no energy Low K this morning Review of Systems unable to obtain full review systems secondary patient's condition Physical Exam Vital Signs: Vital Signs: Last Vital Signs Temp 97.6 F 06/04/22 07:10 Pulse 78 06/04/22 07:10 Resp 16 06/04/22 07:10 BP 90/53 L 06/04/22 07:10 Pulse Ox 98 06/04/22 07:10 O2 Del Method 06/04/22 07:10 O2 Flow Rate 3 06/04/22 07:10 Oxygen Flow Rate 2 05/28/22 14:16 BMI result Body Mass Index 39.5 Const: Other: Constitutional : Awake, interactive, frail Neck : Normal inspection, Supple Cardiovascular : RRR, no JVP, trace lower extremity edema Respiratory : fair bilateral air entry, no crackles, wheezes or rhonchi Gastrointestinal: soft, lax, Normal bowel sounds, no tenderness Skin : Warm, Dry Neurological : Alert & oriented to self and place, No focal deficit Objective Data Active Medications Acetaminophen (Acetaminophen 325 Mg Tablet) 650 mg PO Q6H PRN PRN Reason: Pain, Mild (Pain Scale 1-3) Last Admin: 06/03/22 08:38 Dose: 650 mg Documented By: AMAURI Lipase/Protease/Amylase (Lipase/Prot/Amylase 24/76/120k 1 Cap Capsule.) 1 cap PO TIDWM [facility] Last Admin: 06/04/22 08:24 Dose: 1 cap Documented By: CAS Apixaban (Apixaban 5 Mg Tablet) 5 mg PO BID [facility] Last Admin: 06/04/22 08:24 Dose: 5 mg Documented By: CAS Dextrose (Dextrose 50 % 25 Gm/50 Ml Syringe) 25 gm IVPUSH Q15M PRN; Protocol PRN Reason: per Hypoglycemia Standing Ord. Glucose (Glucose Gel 15 Gm Gel..Gram.) 15 gm PO Q15M PRN; Protocol PRN Reason: per Hypoglycemia Standing Ord. Hydromorphone HCl (Hydromorphone Hcl 0.5 Mg/0.5 Ml Syringe) 0.5 mg IVPUSH Q4H PRN; Protocol PRN Reason: moderate pain Last Admin: 06/01/22 04:09 Dose: 0.5 mg Documented By: PRITI Dextrose/Sodium Chloride (D51/2ns) 1,000 mls @ 80 mls/hr IVCONT .[id number] [facility] Last Admin: 06/04/22 04:07 Dose: 80 mls/hr Documented By: CAILIN Potassium Chloride (Potassium Chloride/H20) 10 meq in 100 mls @ 100 mls/hr IV Q1H [facility] Stop: 06/04/22 11:59 Last Admin: 06/04/22 09:54 Dose: 100 mls/hr Documented By: CAS Insulin Human Lispro (Insulin Lispro 100 Unit/Ml 3 Ml Vial) 0 unit SUBCUT QIDACHS [facility]; Protocol Last Admin: 06/04/22 07:55 Dose: Not Given Documented By: CAS Non-Admin Reason: No Insulin Coverage Levothyroxine Sodium (Levothyroxine Sodium 75 Mcg Tablet) 75 mcg PO DAILY@0600 [facility] Last Admin: 06/04/22 06:28 Dose: 75 mcg Documented By: CAILIN Melatonin (Melatonin 3 Mg Tablet) 6 mg PO BEDTIME PRN PRN Reason: Insomnia Metoclopramide HCl (Metoclopramide Hcl 10 Mg/2 Ml Vial) 5 mg IVPUSH Q6H PRN PRN Reason: nausea Last Admin: 06/04/22 09:54 Dose: 5 mg Documented By: CAS Mirtazapine (Mirtazapine 7.5 Mg Tablet) 7.5 mg PO BEDTIME [facility] Last Admin: 06/03/22 20:41 Dose: 7.5 mg Documented By: BEATA Omeprazole (Omeprazole 20 Mg Capsule.) 20 mg PO BID@0630,1630 [facility] Last Admin: 06/04/22 06:28 Dose: 20 mg Documented By: CAILIN Ondansetron HCl (Ondansetron Hcl 4 Mg/2 Ml Vial) 4 mg IVPUSH Q8H PRN PRN Reason: Nausea and Vomiting Last Admin: 06/04/22 09:19 Dose: 4 mg Documented By: CAS Pharmacy Consult (Consult Rx Perform Med Rec) 1 each MISCELLANE ONCE PRN PRN Reason: Consult order Potassium Chloride (Potassium Chloride Er 20 Meq Tab.Er.Prt) 20 meq PO BID [facility] Last Admin: 06/04/22 09:19 Dose: 20 meq Documented By: CAS Sertraline HCl (Sertraline Hcl 25 Mg Tablet) 75 mg PO DAILY [facility] Last Admin: 06/04/22 08:24 Dose: 75 mg Documented By: CAS Sodium Chloride (0.9 % Sodium Chloride Flush 3 Ml Syringe) 3 ml IVFLUSH QSHIFT [facility] Last Admin: 06/04/22 08:24 Dose: Not Given Documented By: CAS Non-Admin Reason: IV Running Labs 06/04/22 08:04 06/04/22 08:04 Labs: Laboratory Results - last 24 hr 06/03/22 06/03/22 06/03/22 10:58 16:29 20:09 MCV MCH MCHC RDW Plt Count MPV Absolute Nucleated RBC Nucleated RBC % (auto) Anion Gap Estim Creat Clear Calc Estimated GFR POC Glucose 134 H 114 123 H Random Glucose Fasting Glucose Calcium Magnesium Total Bilirubin Direct Bilirubin AST ALT Alkaline Phosphatase Total Protein Albumin 06/03/22 06/04/22 06/04/22 21:35 07:33 08:04 MCV 79.3 L MCH 25.6 L MCHC 32.3 RDW 21.8 H Plt Count 394 MPV 9.6 Absolute Nucleated RBC 0.000 Nucleated RBC % (auto) 0.0 Anion Gap 18 Estim Creat Clear Calc 30.7 Estimated GFR 24 POC Glucose 124 H Random Glucose 121 H Fasting Glucose Calcium 7.4 L Magnesium Total Bilirubin Direct Bilirubin AST ALT Alkaline Phosphatase Total Protein Albumin 06/04/22 08:04 MCV MCH MCHC RDW Plt Count MPV Absolute Nucleated RBC Nucleated RBC % (auto) Anion Gap 16 Estim Creat Clear Calc 32.0 Estimated GFR 25 POC Glucose Random Glucose Fasting Glucose 118 H Calcium 7.5 L Magnesium 1.8 Total Bilirubin 0.5 Direct Bilirubin 0.3 AST 11 ALT < 6 Alkaline Phosphatase 153 H Total Protein 4.3 L Albumin 2.3 L Microbiology Microbiology Results: Microbiology 05/28/22 15:44 Blood Culture - Preliminary Blood - Venous Prelim: GNR Gram Stain only 06/03/22 06:45 Blood Culture - Preliminary Blood - Venous No growth after 24 hours. 06/03/22 06:45 Blood Culture - Preliminary Blood - Venous No growth after 24 hours. Assessment and Plan (1) Pancreatic cyst: Status: Acute (2) Increased nausea and vomiting: Status: Acute (3) Abdominal pain: Status: Acute (4) Acute kidney injury: Status: Acute (5) Hypokalemia: Status: Acute Plan 76F with pertinent history of PE on Eliquis, obesity, recent cholangitis s/p ERCP with ERCP pancreatitis, mood disorder, gastroesophageal reflux disease, urinary incontinence, hypothyroidism, COPD on baseline 2 L supplemental oxygen who presented to the emergency department evaluation of abdominal pain/nausea and vomiting. Abdominal pain/nausea and vomiting acute exacerbation of pancreatitis, possibly complicated by infection of cyst no evidence of cholecystitis surgery appreciated, suggested CT w drainage but patient and family not interested in any intervention advance diet as tolerated - not eating much, supplement added dced zosyn, start PO Augmentin cultures negative continue creon with meals check tumer markers, CEA, CA125, CA19-9 Acute metabolic encephalopathy due to acute illness, kobe Stabilize at Cr of 2 Hypokalemia, acute K of 2.6, to give replacement metabolic acidosis with anasarca improving DC real hold albumin with lasix history of PE eliquis mood disorder remeron, zoloft obesity losing weight unintentionally hypothyroid synthroid chronic hypoxic respiratory failure due to copd on 2L home o2 bronchodilators as needed DM not on meds at home in[place], monitor pocs chronic microcytic anemia, thrombocytosis due to chronic inflammation DVT prophylaxis:? Eliquis DNR/DNI - discussed with HCP, daughter, Jessy, continue conservative therapy for now (IV meds, labs), would not want invasive procedures such as cyst drainage. overall poor prognosis reason for continued hospitalization: Hypokalemia requiring IV and PO replacement. Time Spent With Patient Time: Total time managing care of this patient today ____ minutes. Quality Stroke Does the patient have a stroke diagnosis?: No VTE Prior VTE?: No VTE Risk Level:: Medical - moderate - high VTE Device Contraindication: Treatment Not Indicated VTE Drug Contraindication: N/A - Med Ordered
[2022-06-04 11:40] LABS: Glucose, Whole Blood 118 mg/dL (60-115)
--- NOTE | 2022-06-04 12:22 | MHC.CDI.CONC ---
CDI Concurrent Query Documentation Clarification: PHYSICIAN'S DOCUMENTATION REQUEST Date of Query: 06/04/22 1222 Patient Name: Heather Hunt Admit Date: 05/30/22 Dear Doctor, A review of the medical record indicates additional documentation may be needed. Please review below and update the documentation accordingly. Clinical Indicators: Is there a diagnosis that correlates with these lab findings: Risk Factors/Clinical Indicators/Treatments LABS: calcium 7.4 L 7.5 L Based on the above, could you clarify in the Progress Notes the appropriate diagnosis, if significant, that supports the above abnormalities and additional evaluation, monitoring, and/or treatment rendered: Hypocalcemia or other etiology of lab findings Labs indicate a diagnosis of (please specify) Other (please specify) Unable to determine Use of terms such as suspected, likely, concern for, or probable (associated with a specific diagnosis that is being evaluated, monitored, or treated as if it exists) are acceptable and can be coded in the inpatient setting, when documented at the time of discharge. Thank you, Miracle Babb [facility], [place], [facility] Extension: [phone] Please use your independent medical judgment in providing your response. THIS QUERY IS PART OF THE PERMANENT MEDICAL RECORD Provider Response: Other Other Diagnosis: Pseudohypocalcemia with correct Ca of 8.7
--- NOTE | 2022-06-04 13:44 | MHC.CM.PN ---
EMR REVIEWED, PER HOSPITALIST PT NOT YET READY FOR D/C, PLAN CONT'S TO BE RETURN TO [facility] TRANSPORT. CM WILL CONT TO FOLLOW.
[2022-06-04 15:18] LABS: Anion Gap 16 (12-20); Blood Urea Nitrogen 41 mg/dL (9-16); Calcium 7.2 mg/dL (8.4-10.2); Carbon Dioxide 25 mmol/L (22-29); Chloride 99 mmol/L (96-108); Estimated Glomerular Filt Rate 28; Glucose Random 110 mg/dL (60-115); Potassium 4.1 mmol/L (3.3-5.1); Sodium 136 mmol/L (135-145)
[2022-06-04 15:30] VITALS: BP 102/55; PULSE 69; RESP 16; TEMP 36; O2SAT 98
[2022-06-04 15:37] VITALS: BP 190/97; PULSE 79; RESP 18; TEMP 36.3; O2SAT 100
[2022-06-04 16:48] LABS: Glucose, Whole Blood 117 mg/dL (60-115)
[2022-06-04] MEDS: HYDROmorphone HCl 0.5 MG/0.5 ML SYRINGE IVPUSH (17:21)
[2022-06-04 20:12] LABS: Glucose, Whole Blood 132 mg/dL (60-115)
[2022-06-04] MEDS: Mirtazapine 7.5 MG TABLET PO (20:57)
[2022-06-04] MEDS: 0.9 % Sodium Chloride Flush 3 ML SYRINGE IVFLUSH (20:58)
--- NOTE | 2022-06-04 21:00 | PC.NURSE ---
This RN called pharmacy to change Potassium 20 mEq tablet as the tablet cannot be crushed to a capsule; patient stated she cannot swallow the pill whole even in apple sauce.
[2022-06-04 23:28] VITALS: BP 105/57; PULSE 87; RESP 16; TEMP 36; O2SAT 94
--- NOTE | 2022-06-05 01:03 | PC.NURSE ---
Pt had two episodes of large foul smelling diarrhea; no blood or mucus noted. This RN put in an order for stool sample to test for C diff; awaiting sample.
[2022-06-05 03:30] VITALS: BP 94/57; PULSE 83; RESP 18; TEMP 36; O2SAT 94
[2022-06-05 05:24] LABS: CDiff Gene PCR NEGATIVE (Negative)
[2022-06-05] MEDS: Levothyroxine Sodium 75 MCG TABLET PO (05:53)
[2022-06-05] MEDS: Omeprazole 20 MG CAPSULE.DR PO (05:53)
[2022-06-05 06:21] LABS: Hematocrit 27.3 % (37.0-47.0); Hemoglobin 8.8 g/dl (12.0-16.0); Mean Corpuscular HGB Conc 32.2 g/dl (31.0-35.0); Mean Corpuscular Hemoglobin 25.7 pg (27.0-33.0); Mean Corpuscular Volume 79.6 fL (80.0-98.0); Mean Platelet Volume 9.4 fL (9.4-12.3); Platelet Count 365 X10*3/uL (160-400); Red Blood Count 3.43 X10*6/uL (4.20-5.50); Red Cell Distribution Width 21.7 % (11.0-16.0); White Blood Count 7.2 X10*3/uL (4.8-10.8)
[2022-06-05 07:11] LABS: Blood Urea Nitrogen 38 mg/dL (9-16); Calcium 7.5 mg/dL (8.4-10.2); Creatinine Clr Calc Pharmacy 42.1; Estimated Glomerular Filt Rate 34; Glucose Random 99 mg/dL (60-115)
[2022-06-05 07:28] LABS: Anion Gap 19 (12-20); Carbon Dioxide 22 mmol/L (22-29); Chloride 99 mmol/L (96-108); Potassium 3.2 mmol/L (3.3-5.1); Sodium 137 mmol/L (135-145)
[2022-06-05 07:42] LABS: Glucose, Whole Blood 97 mg/dL (60-115)
[2022-06-05 08:00] VITALS: BP 104/59; PULSE 80; RESP 16; TEMP 36.6; O2SAT 96
[2022-06-05] MEDS: Sertraline HCL 25 MG TABLET 75 MG PO (08:20)
[2022-06-05] MEDS: 0.9 % Sodium Chloride Flush 3 ML SYRINGE IVFLUSH (08:22)
[2022-06-05] MEDS: Apixaban 5 MG TABLET PO (08:22)
[2022-06-05] MEDS: Lipase/Prot/Amylase 24/76/120K 1 CAP CAPSULE.DR PO (08:26)
[2022-06-05] MEDS: Potassium Chloride Packet 20 MEQ PACKET 40 MEQ PO (08:37)
[2022-06-05] MEDS: Loperamide HCl 2 MG CAPSULE PO (11:31)
[2022-06-05] MEDS: Metoclopramide HCl 10 MG/2 ML VIAL 5 MG IVPUSH (11:42)
--- NOTE | 2022-06-05 12:14 | MHC.CM.PN ---
Addendum entered by Siobhan Choudhury, RN 06/05/22 16:25: PER HOSPITALIST PLAN WILL BE TO TRANSITION PT TO [facility] ONCE SHE RETURNS TO SNF, CM HAS SENT MESSAGE VIA [employer] AND PT'S RN HAS SPOKEN W/NURSE AT FACILITY REGARDING PLAN. Original Note: PT MEDICALLY CLEARED FOR D/C AND WILL RETURN TO [facility]IA [facility] BLS TRANSPORT
--- NOTE | 2022-06-05 12:16 | P.DS_ITS ---
DS: Providers Provider Date of Service: 06/05/22 Date of admission: 05/30/22 13:52 Primary care physician: Carlos Marin MD Consults: 05/28/22 19:46 Consult to General Surgery Routine Consulting Provider: Ephraim Ortega Reason for consultation: complex fluid collection around pancreas DS: Diagnosis Discharge Diagnosis (1) Pancreatic cyst: Status: Acute (2) Increased nausea and vomiting: Status: Acute (3) Abdominal pain: Status: Acute (4) Acute kidney injury: Status: Acute (5) Hypokalemia: Status: Acute (6) Toxic metabolic encephalopathy: Status: Acute (7) Anasarca: Status: Acute DS: Summary Hospital Course Hospital Course: Admission note HPI This is a 76-year-old male with pertinent history of PE on Eliquis, mood disorder, gastroesophageal reflux disease, urinary incontinence, hypothyroidism, COPD on baseline 2 L supplemental oxygen who presents to the emergency department evaluation of abdominal pain/nausea and vomiting.? Patient states she has not been feeling well.? She is a poor historian and unable to give specifics.? States was having generalized abdominal discomfort and associated nausea/vomiting.? Unable to obtain review of systems. In the emergency department, complex collection around the pancreas.? General surgery was consulted who will evaluate the patient in a.m. Hospital course The patient was admitted to the hospital for evaluation of abdominal pain associated with nausea and vomiting. CT scan was suggested of acute exacerbation of pancreatitis with possible complicated infection of pancreatic cyst with no evidence of cholecystitis. She was evaluated by surgical team who suggested doing CT guided drainage to the cyst but the family were not interested in intervention as blood cultures remain negative while on IV Zosyn. Her diet was advanced but she continued to report nausea that was fairly controlled with as needed Reglan. Antibiotic was changed to p.o. Augmentin with associated antibiotic diarrhea as C diff tested negative. Started on as needed Imodium. She was in acute kidney injury associated with metabolic encephalopathy and hypokalemia. Responded well to treatment with fluids and holding nephrotoxic medications as kidney function improved back to baseline. Hypokalemia corrected with replacement. Metabolic acidosis resolved. She was treated with albumin and Lasix for anasarca with fair response. She continues to have +2 edema and lower extremities from malnutrition and hypoalbuminemia rather than fluid overload. The patient reported at the day of discharge that she is thinking about palliative care. Her daughter HCP agrees with that put they want to go to SNF first and try to get better. Continue Augmentin for 6 more days Reglan as needed for pain Imodium as needed for diarrhea To recheck kidney function in 1 week SNF team can carry up palliative care management Time Spent with Patient Time attestation: Total time managing care of this patient today ____ minutes. Discharge coordination time: Greater than 30 minutes Quality: Safe Use of Opioids Does Pt have an Active Cancer Diagnosis on the Problem List?: No Quality: Stroke Does the patient have a stroke diagnosis?: No Physical Exam Vital Signs: Vital Signs: Last Vital Signs Temp 97.9 F 06/05/22 08:00 Pulse 80 06/05/22 08:00 Resp 16 06/05/22 08:00 BP 104/59 L 06/05/22 08:00 Pulse Ox 96 06/05/22 08:00 O2 Del Method 06/05/22 08:00 O2 Flow Rate 3 06/05/22 08:00 Oxygen Flow Rate 2 05/28/22 14:16 BMI result Body Mass Index 39.5 Const: Other: Constitutional : Awake, interactive, frail Neck : Normal inspection, Supple Cardiovascular : RRR, no JVP, +1-2 bilateral lower extremity edema Respiratory : fair bilateral air entry, no crackles, wheezes or rhonchi Gastrointestinal: soft, lax, Normal bowel sounds, no tenderness Skin : Warm, Dry Neurological : Alert & oriented to self and place, No focal deficit DS: Data Data Completed and Pending Completed studies during hospitalization [Text1]: Procedures Dilation of Common Bile Duct, Via Natural or Artificial Opening Endoscopic (01/15/22) Insertion of Infusion Device into Superior Vena Cava, Percutaneous Approach (01/15/22) Introduction of Remdesivir Anti-infective into Peripheral Vein, Percutaneous Approach, [employer] 5 (08/28/21) Ultrasonography of Superior Vena Cava, Guidance (01/15/22) Labs on day of discharge: Laboratory Results - last 24 hr 06/04/22 06/04/22 06/04/22 12:11 13:52 16:05 WBC RBC Hgb Hct MCV MCH MCHC RDW Plt Count MPV Absolute Nucleated RBC Nucleated RBC % (auto) Sodium 136 Potassium 4.1 D Chloride 99 Carbon Dioxide 25 Anion Gap 16 BUN 41 H Creatinine 1.78 H Estim Creat Clear Calc 35.0 Estimated GFR 28 POC Glucose 117 H Random Glucose 110 Calcium 7.2 L Carcinoembryonic Ag 3.00 C. difficile Tox B Gene 06/04/22 06/05/22 06/05/22 19:52 04:23 05:37 WBC 7.2 RBC 3.43 L Hgb 8.8 L Hct 27.3 L MCV 79.6 L MCH 25.7 L MCHC 32.2 RDW 21.7 H Plt Count 365 MPV 9.4 Absolute Nucleated RBC 0.000 Nucleated RBC % (auto) 0.0 Sodium Potassium Chloride Carbon Dioxide Anion Gap BUN Creatinine Estim Creat Clear Calc Estimated GFR POC Glucose 132 H Random Glucose Calcium Carcinoembryonic Ag C. difficile Tox B Gene NEGATIVE 06/05/22 06/05/22 05:37 07:37 WBC RBC Hgb Hct MCV MCH MCHC RDW Plt Count MPV Absolute Nucleated RBC Nucleated RBC % (auto) Sodium 137 Potassium 3.2 L D Chloride 99 Carbon Dioxide 22 Anion Gap 19 BUN 38 H Creatinine 1.48 H Estim Creat Clear Calc 42.1 Estimated GFR 34 POC Glucose 97 Random Glucose 99 Calcium 7.5 L Carcinoembryonic Ag C. difficile Tox B Gene Preliminary micro results at discharge 06/03/22 06:45 Blood Culture - Preliminary Blood - Venous No growth after 48 hours. 06/03/22 06:45 Blood Culture - Preliminary Blood - Venous No growth after 48 hours. Imaging Chest x-ray: Radiologist's impression: ITS Impressions Chest X-Ray 05/28/22 15:54 IMPRESSION: Small lung volumes. Abdomen/Pelvis CT 05/28/22 18:03 IMPRESSION: 1. The volume of the complex collection in the midabdomen around the pancreas has diminished since prior CAT scan 05/19/2022 but remains present. The air within this collection raises question of infection. 2. Free fluid in the abdomen and pelvis. 3. Bowel pattern suggests ileus. Fleischner guidelines were followed. Discharge Plan Discharge Anticipated Discharge Date/Time: 06/05/22 10:41 Patient Disposition: er SNF Discharge Diagnosis: Pancreatic cyst with suspected infection Acute kidney injury Low potassium level Referrals: [facility] [Outside] - 1 Day (RESUMPTION OF CARE) Carlos Marin MD [Primary Care Provider] - 1 Week Discharge Medications: New amoxicillin-pot clavulanate 200-28.5 mg/5 mL Suspension For Reconstitution 800 mg PO BID 6 Days Qty: 210.066 0RF metoclopramide HCl 5 mg tablet 5 mg PO Q6H PRN (Reason: nausea and vomiting) Qty: 30 0RF Continued levothyroxine 75 mcg tablet 1 tab PO DAILY@0600 omeprazole 20 mg capsule,delayed release(DR/EC) 1 cap PO BID@0630,1630 Myrbetriq 25 mg tablet extended release 24 hr 1 tab PO DAILY fluticasone propion-salmeterol [Advair Diskus] 250-50 mcg/dose Blister With Device 1 inh INHALATION BID ondansetron HCl 4 mg Tablet 4 mg PO BID PRN (Reason: Nausea) ondansetron HCl 4 mg Tablet 4 mg PO DAILY acetaminophen 500 mg Tablet 1,000 mg PO TID magnesium hydroxide [Milk of Magnesia] 400 mg/5 mL Suspension 30 ml PO DAILY PRN (Reason: Constipation) bisacodyl [Dulcolax (bisacodyl)] 10 mg Suppository 10 mg DE DAILY PRN (Reason: Constipation) sertraline 50 mg Tablet 75 mg PO DAILY mirtazapine 7.5 mg Tablet 7.5 mg PO BEDTIME Combivent Respimat 20-100 mcg/actuation Mist 2 puff INHALATION Q6H PRN (Reason: Shortness Of Breath) dextrose [Glucose Gel] 40 % Gel 10 g PO Q15M PRN (Reason: BG <60 AND CONSCIOUS) Rx Instructions: until symptoms of low blood sugar are controlled Fleet Enema 19-7 gram/118 mL Enema 118 ml DE BEDTIME PRN (Reason: Constipation) glucagon HCl [Glucagon (HCl) Emergency Kit] 1 mg Recon Soln 1 mg SUBCUT Q20M PRN (Reason: BG < 60) Rx Instructions: until target blood sugar attained apixaban 5 mg (74 tabs) tablets,dose pack 5 mg PO BID Qty: 72 0RF albuterol sulfate 90 mcg/actuation HFA aerosol inhaler 2 puff INHALATION Q4H PRN (Reason: Shortness Of Breath) potassium chloride 20 mEq Tablet Extended Release 20 meq PO BID Metamucil 3.4 gram/5.4 gram Powder 1 tsp PO BID Rx Instructions: mix into at least 8 oz water or juice before administering Creon 12,000-38,000 -60,000 unit capsule,delayed release(DR/EC) 1 cap PO TIDWM Rx Instructions: administer with meals and/or snacks loperamide 2 mg Capsule 2 mg PO Q3H PRN (Reason: Loose Stool) Qty: 20 0RF Rx Instructions: do not exceed 16mg (DME) FreeStyle Summer 3 Sensor Kit See Rx Instructions .Route Qty: 1 0RF Rx Instructions: As directed Discontinued erythromycin 250 mg Tablet 250 mg PO BID Discharge Orders: Discharge Order (Routine); Ordered 06/05/22 Ordered By: Marcia Langston Diet: Advance to usual diet Activity on Discharge: As tolerated Stand Alone Forms: Patient Portal Discharge page Other Ambulatory Orders: Basic Metabolic Panel (Routine) Timeframe: 1 Week Facility: [facility] - Location: Laboratory Ordered By: Marcia Langston Care Plan Goals: Read below Health Concerns: Read below Plan of Treatment: Read below Assessment: You were admitted to the hospital for evaluation of abdominal pain. found to have pancreatic cyst with suspecion of infection that was evaluated by surgery team who suggested drainage but you opted not to go for any invasive procedure. treated with IV Antibiotics changed to PO. Noted to have kidney injury with low potassium level which both improved during hospital stay. developed diarrhea which is likely secondary to antibiotics usage as CDiff tested negative. Continue Augmentin for 6 more days Reglan as needed for pain Imodium as needed for diarrhea To recheck kidney function in 1 week
[2022-06-05 12:22] LABS: Glucose, Whole Blood 96 mg/dL (60-115)
[2022-06-05 15:41] VITALS: BP 97/50; PULSE 90; RESP 16; TEMP 36.1; O2SAT 98
[2022-06-06 08:59] LABS: CA-125 118 U/mL (<35); Carbohydrate Antigen 19-9 9 U/mL (<34)
== END 2022-06-05 17:04 | disposition skilled nursing facility (03) | DRG 438 ==
LOC: HO.ED 19:12 → HO.EDOVER 19:46 → HO.S3 20:26
PROVIDERS: Internal Medicine; Admitting Provider Student in an Organized Health Care Education/Training Program; Emergency Provider Emergency Medicine Emergency Medical Services; PCP Family Medicine; Visit Provider Student in an Organized Health Care Education/Training Program
DX: K85.90 Acute pancreatitis without necrosis or infection, unspecified (principal); G92.8 Other toxic encephalopathy; E87.20 Acidosis, unspecified; N17.9 Acute kidney failure, unspecified; J96.11 Chronic respiratory failure with hypoxia; K86.2 Cyst of pancreas; E03.9 Hypothyroidism, unspecified; G47.33 Obstructive sleep apnea (adult) (pediatric); E87.6 Hypokalemia; F39 Unspecified mood [affective] disorder; E78.00 Pure hypercholesterolemia, unspecified; E66.9 Obesity, unspecified; E11.65 Type 2 diabetes mellitus with hyperglycemia; D75.839 Thrombocytosis, unspecified; D50.9 Iron deficiency anemia, unspecified; J45.30 Mild persistent asthma, uncomplicated; Z66 Do not resuscitate; E86.0 Dehydration; Z99.81 Dependence on supplemental oxygen; Z88.0 Allergy status to penicillin; Z88.2 Allergy status to sulfonamides; Z88.5 Allergy status to narcotic agent; Z88.7 Allergy status to serum and vaccine; Z20.822 Contact with and (suspected) exposure to COVID-19; Z68.39 Body mass index [BMI] 39.0-39.9, adult; Z86.711 Personal history of pulmonary embolism; Z79.01 Long term (current) use of anticoagulants; Z79.51 Long term (current) use of inhaled steroids; Z79.890 Hormone replacement therapy; Z79.899 Other long term (current) drug therapy
CPT/HCPCS: 0241U; 36415; 71045; 74177; 80048; 80076; 81001; 82378; 82947; 83036; 83540; 83605; 83690; 83735; 83880; 84443; 84484; 85025; 85027; 86301; 86304; 87040; 87086; 87205; 87493; 93005; 99221; 99285; C1758; J1170; J1940; J2405; J2543; J2765; J3475; P9047; Q9967